=== PATIENT | male | born 1975 | race Caucasian/White ===

== ENCOUNTER 2016-07-20 23:48 | Inpatient (IN) | payer OTHER ==
[~2016-07-20] VITALS: Ht 175.3 cm; Wt 86.8 kg
[~2016-07-20 23:48] MED LIST: AMT50 PO; CHOL100027 PO; CLON0.5T3 PO; CLOZ100T18 PO; DIVA500T3 PO; IBUP600T44 PO; LISI-729 PO; PROP10TA7 PO; SENN8.6T11 PO; SIME80CH PO; SIMV20TA2 PO
[2016-07-21 00:42] LABS: MANUAL MICROSCOPIC REQUIRED? NO; REVIEW REQ? NO; URINE APPEARANCE CLEAR (CLEAR); URINE BILIRUBIN NEG (NEG); URINE COLOR YELLOW; URINE EPITHELIAL CELL AUTO 0-5 /lpf (0-5); URINE NITRITE NEG (NEG); URINE SPECIFIC GRAVITY 1.005 (1.000-1.030); UROBILINOGEN NEG (NEG); ZZUR CULT IF INDIC CLEAN CATCH NO
[2016-07-21 00:49] LABS: BASO % 0.2 %; BASO ABS # 0.02 K/uL (0-0.2); COMPLETE YES; HEMATOCRIT 41.3 % (42-52); IG% 0.5 %; LYMPH % 13.9 %; LYMPH ABS # 1.77 K/uL (1.2-3.4); MEAN CELL VOLUME 87.7 fL (80-100); MEAN CORPUSCULAR HEMOGLOBIN 31.8 pg (25-34); MEAN CORPUSCULAR HGB CONC 36.3 g/dl (32-36); MEAN PLATELET VOLUME 9.4 fL (7.4-10.4); MONO % 9.4 %; PLATELET COUNT 258 K/uL (130-400); RED BLOOD COUNT 4.71 M/uL (4.7-6.1); WHITE BLOOD COUNT 12.75 K/uL (4.8-10.8)
[2016-07-21 00:52] LABS: BENZODIAZEPINE, URINE NEG (NEG); COCAINE,URINE NEG (NEG); PHENCYCLIDINE, URINE NEG (NEG)
[2016-07-21 01:13] LABS: BUN/CREATININE RATIO 12.3 (10-20); CALCIUM 9.2 mg/dl (8.5-10.1); CREATININE 1.1 mg/dl (0.60-1.40); POTASSIUM 3.9 mmol/L (3.5-5.1)
[2016-07-21] MEDS ORDERED: LEVO1CAP6 PO (01:22)
[2016-07-21 01:24] LABS: ACETAMINOPHEN < 2 ug/ml (10-30); ALB/GLOB RATIO 1.2 (0.9-2); THYROID STIMULATING HORMONE 1.1 uIu/ml (0.300-4.500)
[2016-07-21] MEDS ORDERED: SENN8.6T11 PO (01:25)
[2016-07-21] MEDS ORDERED: NURSING VERBAL MED ORDER ONE (03:00)
[2016-07-21] MEDS ORDERED: hydrOXYzine HCL 25 MG TAB PO PRN ×2 (03:15)
[2016-07-21] MEDS ORDERED: ACETAMINOPHEN 325 MG TAB PO PRN (03:15)
[2016-07-21] MEDS ORDERED: SODIUM CHLORIDE 0.65% NA SOLN 45 ML (OCEAN) PRN (03:15)
[2016-07-21] MEDS ORDERED: BISMUTH SUBSALICYLATE PER ML OMNICELL CHARGE PO PRN (03:15)
[2016-07-21] MEDS ORDERED: ALUMINUM/MAGNESIUM SUSP 30 ML UDC PO PRN (03:15)
[2016-07-21] MEDS ORDERED: MAGNESIUM HYDROXIDE SUSP 30 ML UDC PO PRN (03:15)
[2016-07-21 03:20] VITALS: O2SAT 93
[2016-07-21 03:25] VITALS: BP 132/93; PULSE 84; TEMP 37; Ht 175.3 cm; Wt 86.8 kg
--- NOTE | 2016-07-21 06:17 | EMERGENCY ROOM VISIT NOTE ---
History Report prepared by Rubina: Martell Trujillo Under the Supervision of: Dr. Eliazar Solis M.D. First contact with patient: 23:50 Stated Complaint: ILLNESS History of Present Illness The patient is a 41 year old male who presents to the Emergency Room with complaints of acute paranoia that started at approximately 2000 tonight. The patient has a history of mental health issues. He was on Facebook and was going to preparing to post an article when he started to feel paranoid. He also admits to suicidal and homicidal ideations without a plan. The patient denies any recent attempts to harm himself or others. He also notes that he started hearing auditory hallucinations tonight, which includes voices of friends from his group therapy sessions. He denies that the voices were telling him to do anything. The patient notes shallow breathing tonight. The patient denies depression. He has not been hurt by anybody recently or experienced anything traumatic. He has been doing well until tonight. The patient denies drug or alcohol use. The patient was admitted to [facility] in April for similar complaints. He is willing to be evaluated for a mental health admission. Source of History: patient Onset: 1999 tonight Position: other (psyche) Quality: other (paranoid) Timing: other (acute) Modifying Factors (Worsening): other (Facebook) Note: Positive shallow breathing. Positive suicidal ideations, homicidal ideations, auditory hallucinations. Review of Systems See HPI for pertinent positives & negatives. A total of 10 systems reviewed and were otherwise negative. Past Medical & Surgical Medical Problems: (1) Anxiety (2) Bipolar disorder (3) Overdose (4) Schizoaffective disorder Family History Depression Social History Smoking Status: Former Smoker Alcohol Use: none Drug Use: none Marital Status: single Housing Status: lives with roommate Occupation Status: unemployed Current/Historical Medications Scheduled Amitriptyline Hcl (Elavil), 100 MG PO HS Cholecalciferol (Vitamin D 1000 Unit), 1,000 INTER.UNIT PO QAM Clonazepam (Klonopin), 0.25 MG PO DAILY@1200 & 8PM Clozapine (Clozapine), 100 MG PO QAM Clozapine (Clozapine), 200 MG PO HS Divalproex Sodium (Depakote Er), 1,500 MG PO HS Levocarnitine L-Tartrate (L-Carnitine), 500 MG PO TID Lisinopril (Zestril), 5 MG PO QAM Propranolol (Inderal), 10 MG PO DAIY@NOON Simvastatin (Zocor), 20 MG PO HS Scheduled PRN Ibuprofen (Motrin), 600 MG PO Q6H PRN for Pain Sennosides-Docusate Sodium (Doc-Q-Lax), 100 MG PO Q12 PRN for Constipation Simethicone (Gas-X), 80 MG PO PC PRN for GI Upset Allergies Coded Allergies: Chlorpromazine (Verified Allergy, Unknown, unknown, 08/17/15) Guanfacine (Unverified Allergy, Unknown, UNKNOWN, 08/17/15) Risperidone (Verified Allergy, Unknown, HAS HAD ZYPREXA WITHOUT PROBLEM, ) Ziprasidone (Verified Adverse Reaction, Severe, INSIDE FEELS LIKE BROKEN GLASS, 08/17/15) Antihistamines, Loratadine-type (Unverified Adverse Reaction, Unknown, HIGH ENERGY, 07/21/16) Physical Exam Vital Signs Date Time Temp Pulse Resp B/P Pulse Ox O2 Delivery O2 Flow Rate FiO2 07/21/16 01:34 113 20 143/87 98 Room Air 07/20/16 23:54 37.0 111 20 169/98 97 Room Air Physical Exam GENERAL: Patient is anxious appearing with a mild tremor. HEENT: No acute trauma, normocephalic atraumatic, mucous membranes moist, no nasal congestion, no scleral icterus. NECK: No stridor, no adenopathy, no meningismus, trachea is midline. LUNGS: No dyspnea. Clear to auscultation and equal bilaterally. No wheeze, no rhonchi. HEART: Regular rate and rhythm. No murmurs, rubs, gallops appreciated. ABDOMEN: Soft, nontender, bowel sounds positive, no masses appreciated, no peritonitis. BACK: No midline tenderness, no CVA tenderness EXTREMITIES: Normal motion all extremities, no cyanosis, no edema. NEUROLOGIC: Alert and oriented, no acute motor or sensory deficits, no focal weakness, cranial nerves grossly intact. SKIN: No rash, no jaundice, no diaphoresis. PSYCH: Admits to auditory hallucinations, denies depression, admits to acute priscila, admits suicidal and homicidal thoughts without a plan. Medical Decision & Procedures Laboratory Results 07/21/16 00:20 Red Blood Count 4.71, Mean Corpuscular Volume 87.7, Mean Corpuscular Hemoglobin 31.8, Mean Corpuscular Hemoglobin Concent 36.3, Mean Platelet Volume 9.4, Neutrophils (%) (Auto) 76.0, Lymphocytes (%) (Auto) 13.9, Monocytes (%) (Auto) 9.4, Eosinophils (%) (Auto) 0.0, Basophils (%) (Auto) 0.2, Neutrophils # (Auto) 9.70, Lymphocytes # (Auto) 1.77, Monocytes # (Auto) 1.20, Eosinophils # (Auto) 0.00, Basophils # (Auto) 0.02 07/21/16 00:20 Test 07/21/16 00:10 07/21/16 00:20 Urine Color YELLOW Urine Appearance CLEAR (CLEAR) Urine pH 6.0 (4.5-7.5) Urine Specific [place] 1.005 (1.000-1.030) Urine Protein NEG (NEG) Urine Glucose (UA) NEG (NEG) Urine Ketones TRACE (NEG) Urine Occult Blood 2+ (NEG) Urine Nitrite NEG (NEG) Urine Bilirubin NEG (NEG) Urine Urobilinogen NEG (NEG) Urine Leukocyte Esterase NEG (NEG) Urine WBC (Auto) 1-5 /hpf (0-5) Urine RBC (Auto) 5-10 /hpf (0-4) Urine Hyaline Casts (Auto) 1-5 /lpf (0-5) Urine Epithelial Cells (Auto) 0-5 /lpf (0-5) Urine Bacteria (Auto) NEG (NEG) Urine Opiates Screen NEG (NEG) Urine Methadone, Qualitative NEG (NEG) Urine Barbiturates NEG (NEG) Urine Phencyclidine (PCP) Level NEG (NEG) Ur Amphetamine/Methamphetamine NEG (NEG) MDMA (Ecstasy) Screen NEG (NEG) Urine Benzodiazepines Screen NEG (NEG) Urine Cocaine Metabolite NEG (NEG) Urine Marijuana (THC) NEG (NEG) White Blood Count 12.75 K/uL (4.8-10.8) Red Blood Count 4.71 M/uL (4.7-6.1) Hemoglobin 15.0 g/dL (14.0-18.0) Hematocrit 41.3 % (42-52) Mean Corpuscular Volume 87.7 fL (80-100) Mean Corpuscular Hemoglobin 31.8 pg (25-34) Mean Corpuscular Hemoglobin Concent 36.3 g/dl (32-36) Platelet Count 258 K/uL (130-400) Mean Platelet Volume 9.4 fL (7.4-10.4) Neutrophils (%) (Auto) 76.0 % Lymphocytes (%) (Auto) 13.9 % Monocytes (%) (Auto) 9.4 % Eosinophils (%) (Auto) 0.0 % Basophils (%) (Auto) 0.2 % Neutrophils # (Auto) 9.70 K/uL (1.4-6.5) Lymphocytes # (Auto) 1.77 K/uL (1.2-3.4) Monocytes # (Auto) 1.20 K/uL (0.11-0.59) Eosinophils # (Auto) 0.00 K/uL (0-0.5) Basophils # (Auto) 0.02 K/uL (0-0.2) RDW Standard Deviation 38.9 fL (36.4-46.3) RDW Coefficient of Variation 12.1 % (11.5-14.5) Immature Granulocyte % (Auto) 0.5 % Immature Granulocyte # (Auto) 0.06 K/uL (0.00-0.02) Anion Gap 12.0 mmol/L (3-11) Est Creatinine Clear Calc Drug Dose 98.9 ml/min Estimated GFR () 96.8 Estimated GFR (Non- 83.5 BUN/Creatinine Ratio 12.3 (10-20) Calcium Level 9.2 mg/dl (8.5-10.1) Total Bilirubin 0.2 mg/dl (0.2-1) Aspartate Amino Transf (AST/SGOT) 20 U/L (15-37) Alanine Aminotransferase (ALT/SGPT) 38 U/L (12-78) Alkaline Phosphatase 63 U/L (45-117) Total Protein 7.8 gm/dl (6.4-8.2) Albumin 4.2 gm/dl (3.4-5.0) Globulin 3.6 gm/dl (2.5-4.0) Albumin/Globulin Ratio 1.2 (0.9-2) Thyroid Stimulating Hormone (TSH) 1.100 uIu/ml (0.300-4.500) Chemistry Specimen Hemolysis Salicylates Level < 1.7 mg/dl (2.8-20) Acetaminophen Level < 2 ug/ml (10-30) Valproic Acid (Depakene) Level 112 mcg/ml (50-100) Ethyl Alcohol mg/dL < 3.0 mg/dl (0-3) Laboratory results as reviewed by me. ED Course 2356: The patient was evaluated in room B4b. A complete history and physical exam was performed. 0120: The patient is still feeling suicidal and having hallucinations. He wants to be admitted. 0130: [facility] is coming to evaluate the patient. 0320: The patient was accepted to [address] [place] [address]. Medical Decision Differential: Mood Disorder, Overdose, Infectious, Electrolyte Abnormality, Cardiac, Hepatic, Endocrine, Toxicologic, Neurologic, amongst other pathologies entertained. 41 yr old male well known to department for his mental health issues. States he is here because he is having acute paranoid suicidal thoughts and hearing voices. Does have mildly bumped Depakote level along with mild WBC elevation, likely more related to some dehydration, though by exam not significantly dehydrated. He has no abdominal TTP, breathing comfortably, no fever, and no other complaints. He examines much like previous visits and I do not feel that he is toxic from his depakote, though did discuss possibility that hallucinations could be caused by increased depakote. Regardless, I do not feel that this is cause to keep him from being medically cleared to go to psych facility. Evaluated by [facility] and excepted to their floor. Impression Primary Impression: Paranoia Additional Impressions: Suicidal ideation Priscila Anxiety Scribe Attestation The scribe's documentation has been prepared under my direction and personally reviewed by me in its entirety. I confirm that the note above accurately reflects all work, treatment, procedures, and medical decision making performed by me. Departure Information Dispostion Mental Health Acute Care Referrals Nuvia Liao D.O. (PCP) Problem Qualifiers
[2016-07-21 06:29] VITALS: BP_SYST 122; BP_SYST 91; BP_DIAS 63; BP_DIAS 82; PULSE 94; TEMP 36.8
[2016-07-21] MEDS ORDERED: SIMETHICONE 80 MG CHEW PO PRN (06:45)
[2016-07-21] MEDS ORDERED: DOCUSATE SODIUM/SENNA 50/8.6MG TAB PO PRN (07:00)
[2016-07-21] MEDS: CHOLECALCIFEROL 1000 INTER.UNIT TAB PO SCH (08:30)
[2016-07-21] MEDS: LISINOPRIL 5 MG TAB PO SCH (08:30)
[2016-07-21] MEDS: CLOZAPINE 100 MG TAB PO SCH ×2 (08:30→20:43)
[2016-07-21] MEDS ORDERED: CLONAZEPAM 0.5 MG TAB PO SCH ×2 (09:00→12:00)
[2016-07-21] MEDS: PROPRANOLOL HCL 10 MG TAB PO SCH (13:03)
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
--- NOTE | 2016-07-21 15:27 | Psychiatric History & Physical ---
History Identifying Data Faustino Becker is a 41-year-old male who currently lives in at [facility]. Faustino Becker was admitted on a 201 voluntary commitment. Patient is admitted from home. The patient was brought to the ED after calling CAROLINE. Chief Complaint "I had this energy and saw everything, I was restless and went for a walk". History of Present Illness Faustino Becker is a 41-year-old single white male with a PMH significant for schizoaffective disorder, biploar type who presented to the ER yesterday with acute paranoia, suicidal ideations, homicidal ideations, and possible auditory hallucinations. He is well known to the [facility] from several previous admissions, the first of which was at age [age] years old. He has required several inpatient psychiatric hospitalizations here and at [facility], [facility], and two years at [facility]. Most recently he was hospitalized for 10 days at the [facility] for "chronic fatigue." The only change to his medications following this hospitalization was the addition of L- carnitine. Yesterday, Faustino states that he started feeling thinking of various means by which he could commit suicide. He went for an hour long "mindfulness" walk. He also listened to music and took a shower, none of which improved his thought content. For example, he was thinking of how he could ask the staff at his living facility for his knife and use it to cut himself in various places on his body. Later, he took a Vistaril prn and then just felt "antsy", he was considering posting an article he had written on [employer]. It is unclear if this was his article about a "man who saved me" in [place] who is the creator of [employer]. He states that his biggest complaint is that lately he has been "hyper -focused" on lights and high end computer hardware, and cars. He becomes so focused and obsessive that these are all that he can think about, and it is " not fun." He does describe ideas of reference whereby he thinks a car tried to signal him and then almost swiped him. He describes his mood as 5/10 and "in between," and describes that lately he has been in a "bad mood." He describes episodes of manic behavior including grandiosity, extreme irritability, increased pacing, increased pressure on self to perform and not disappoint, flight of ideas, and rapid speech. During these episodes he reports "delusional hallucinations" but cannot express further on what this means to him. He reports good appetite but is concerned about 7 pound weight loss in the last week. Past Psychiatric History [facility] Current outpatient mental health treatment: * Psychiatrist- Dr. Reyes and his PA, Kendal- [facility] * [facility], [facility] * medical case manager - Titi Castro Prior outpatient mental health treatment: * Dr. María Mason Prior psychiatric hospitalizations: * [facility], * [place], * [facility] * [place], * [facility] Prior medication trials: * Abilify- strange dreams * Thorazine- rage * Risperdal- removed clothing * Geodon- too short acting * Trilafon- no perceived benefit * Vistaril- no perceived benefit Prior suicide attempts: 2 * 2009- cut his arm and took 30 Klonopin * Described another attempt while in [facility] Access to weapons: none at assisted living. Past Medical/Surgical History Current primary care practitioner: Emilee Reinoso, [place] hypercholesterolemia HTN -- Denies personal history of DM, obesity, heart disease, history of head injury: none history of seizure: none Allergies Allergies: Coded Allergies: Chlorpromazine (Verified Allergy, Unknown, unknown, 08/17/15) Guanfacine (Unverified Allergy, Unknown, UNKNOWN, 08/17/15) Risperidone (Verified Allergy, Unknown, HAS HAD ZYPREXA WITHOUT PROBLEM, ) Ziprasidone (Verified Adverse Reaction, Severe, INSIDE FEELS LIKE BROKEN GLASS, 08/17/15) Antihistamines, Loratadine-type (Unverified Adverse Reaction, Unknown, HIGH ENERGY, 07/21/16) Home Medications Scheduled Amitriptyline Hcl (Elavil), 100 MG PO HS Cholecalciferol (Vitamin D 1000 Unit), 1,000 INTER.UNIT PO QAM Clonazepam (Klonopin), 0.25 MG PO DAILY@1200 & 8PM Clozapine (Clozapine), 100 MG PO QAM Clozapine (Clozapine), 200 MG PO HS Divalproex Sodium (Depakote Er), 1,500 MG PO HS Levocarnitine L-Tartrate (L-Carnitine), 500 MG PO TID Lisinopril (Zestril), 5 MG PO QAM Propranolol (Inderal), 10 MG PO DAIY@NOON Simvastatin (Zocor), 20 MG PO HS Scheduled PRN Ibuprofen (Motrin), 600 MG PO Q6H PRN for Pain Sennosides-Docusate Sodium (Doc-Q-Lax), 100 MG PO Q12 PRN for Constipation Simethicone (Gas-X), 80 MG PO PC PRN for GI Upset Family History Depression Mental Health: * mother- bipolar, hypothyroidism Substance Abuse: * father- alcohol abuse, hyperthyroidism Suicide: * Mother- several attempts Medical history: * Paternal relatives- ovarian, brain, and throat cancer * Maternal relatives - HTN, heart disease denies family history of DM, obesity, Alcohol Use Alcohol Use In Past 12 Months: No Substance History Substance Use Past 12 Months: Hx of Inhalent Use: No Hx of Organic Substance Use: No Hx of Illegal/Street Drug Use: No Hx of Over the Counter Med Use: No Hx of Prescription Med Use: No Personal History Born in: [place], but raised in [place], [place] Parental Status: Development: Developmental milestones were on time, per patient Education: graduated from high school, started college Work History: unemployed, 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 Relationship History: never Children: denies Spiritual Affiliation: denies Legal History: none Abuse History: none Additional Comments: Siblings: Only child Education: Working on a Bachelors degree in [employer] Review of Systems Psych: denies symptoms other than stated above Constitutional: denied Cardiovascular: denied GI: denied Neurologic: denied Remainder of 10 body systems also reviewed and denied other than noted above. Examination Physical Examination A physical exam was performed in the ER by Dr. Solis prior to admission to the unit. I accept that physical as correct/medical clearance for the inpatient physical exam. Vital Signs Vital Signs Past 12 Hours Date Time Temp Pulse Resp B/P Pulse Ox O2 Delivery O2 Flow Rate FiO2 07/21/16 06:29 36.8 94 17 122/82 91/63 07/21/16 03:25 37.0 84 20 132/93 07/21/16 03:20 83 20 132/93 93 Room Air Laboratory Results Last 24 Hours Test 07/21/16 00:10 07/21/16 00:20 Urine Color YELLOW Urine Appearance CLEAR Urine pH 6.0 Urine Specific [place] 1.005 Urine Protein NEG Urine Glucose (UA) NEG Urine Ketones TRACE Urine Occult Blood 2+ Urine Nitrite NEG Urine Bilirubin NEG Urine Urobilinogen NEG Urine Leukocyte Esterase NEG Urine WBC (Auto) 1-5 /hpf Urine RBC (Auto) 5-10 /hpf Urine Hyaline Casts (Auto) 1-5 /lpf Urine Epithelial Cells (Auto) 0-5 /lpf Urine Bacteria (Auto) NEG Urine Opiates Screen NEG Urine Methadone, Qualitative NEG Urine Barbiturates NEG Urine Phencyclidine (PCP) Level NEG Ur Amphetamine/Methamphetamine NEG MDMA (Ecstasy) Screen NEG Urine Benzodiazepines Screen NEG Urine Cocaine Metabolite NEG Urine Marijuana (THC) NEG White Blood Count 12.75 K/uL Red Blood Count 4.71 M/uL Hemoglobin 15.0 g/dL Hematocrit 41.3 % Mean Corpuscular Volume 87.7 fL Mean Corpuscular Hemoglobin 31.8 pg Mean Corpuscular Hemoglobin Concent 36.3 g/dl Platelet Count 258 K/uL Mean Platelet Volume 9.4 fL Neutrophils (%) (Auto) 76.0 % Lymphocytes (%) (Auto) 13.9 % Monocytes (%) (Auto) 9.4 % Eosinophils (%) (Auto) 0.0 % Basophils (%) (Auto) 0.2 % Neutrophils # (Auto) 9.70 K/uL Lymphocytes # (Auto) 1.77 K/uL Monocytes # (Auto) 1.20 K/uL Eosinophils # (Auto) 0.00 K/uL Basophils # (Auto) 0.02 K/uL RDW Standard Deviation 38.9 fL RDW Coefficient of Variation 12.1 % Immature Granulocyte % (Auto) 0.5 % Immature Granulocyte # (Auto) 0.06 K/uL Sodium Level 139 mmol/L Potassium Level 3.9 mmol/L Chloride Level 103 mmol/L Carbon Dioxide Level 24 mmol/L Anion Gap 12.0 mmol/L Blood Urea Nitrogen 14 mg/dl Creatinine 1.10 mg/dl Est Creatinine Clear Calc Drug Dose 98.9 ml/min Estimated GFR () 96.8 Estimated GFR (Non- 83.5 BUN/Creatinine Ratio 12.3 Random Glucose 109 mg/dl Calcium Level 9.2 mg/dl Total Bilirubin 0.2 mg/dl Aspartate Amino Transf (AST/SGOT) 20 U/L Alanine Aminotransferase (ALT/SGPT) 38 U/L Alkaline Phosphatase 63 U/L Total Protein 7.8 gm/dl Albumin 4.2 gm/dl Globulin 3.6 gm/dl Albumin/Globulin Ratio 1.2 Thyroid Stimulating Hormone (TSH) 1.100 uIu/ml Chemistry Specimen Hemolysis Salicylates Level < 1.7 mg/dl Acetaminophen Level < 2 ug/ml Valproic Acid (Depakene) Level 112 mcg/ml Ethyl Alcohol mg/dL < 3.0 mg/dl Mental Examination During interview pt is: alert and oriented, cooperative Appearance: appropriately dressed, appropriately groomed Eye contact is: fair Motor behavior is: no abnormal motor movements Speech: normal in rate, rhythm & volume Affect: euthymic Mood is: other (elevated) Thought process: circumstantial Thought content: preoccupation, delusions (grandiosity), ideas of reference Suicidal thought are: denied Homicidal thoughts are: denied Hallucinations: denies auditory, denies visual Cognition: attention grossly intact, language grossly intact Intelligence estimated to be: consistent with level of education Insight: limited Judgement: limited Impression / Recommendations Impression 41 yo male who appears younger than stated age with well established diagnosis of schizoaffective disorder, currently appears to be at least hypomanic with restlessness alternating with paranoia. Depakote level was not a trough. He notes benefit from Klonopin and describes possible restless legs at hs. He declines any Clozaril titration due to mild sialorrhea and sedation. Risk Factors Assessment Male: Yes : Yes /single/: Yes Access to guns: No Mental Health Diagnoses: Yes Previous attempt: Yes Previous psychiatric stay: Yes Protective Factors Assessment Stable relationships: Yes Good rapport with provider: Yes Recommendations (1) Schizoaffective disorder, manic type on admit: The patient is admitted to [facility] ([facility] on q 15 min checks (behavioral with suicide precautions) for safety. The patient will participate in group, recreational and milieu therapies and will be offered additional individual and family sessions as clinically appropriate. will titrate Klonopin for now, repeat VPA level in am with fasting lipid and glucose profile. consider clozaril titration (2) HTN (hypertension) patient states propranolol is for anxiety, not high BP continue Lisinopril and will do daily VS CPT Code Initial Hospital Care: [id number]
[2016-07-21] MEDS: CLONAZEPAM 0.5 MG TAB PO SCH (20:43)
[2016-07-21] MEDS: AMITRIPTYLINE HCL 50 MG TAB PO SCH (20:43)
[2016-07-21] MEDS: SIMVASTATIN 20 MG TAB PO SCH (20:44)
[2016-07-21] MEDS: DIVALPROEX 500 MG EXTENDED RELEASE TAB PO SCH (20:44)
[2016-07-22] MEDS: IBUPROFEN 600 MG TAB PO PRN (00:34)
[2016-07-22 06:50] VITALS: BP_SYST 101; BP_SYST 108; BP_DIAS 70; BP_DIAS 72; PULSE 82; PULSE 85; TEMP 36.4
[2016-07-22] MEDS: LISINOPRIL 5 MG TAB PO SCH (09:05)
[2016-07-22] MEDS: CHOLECALCIFEROL 1000 INTER.UNIT TAB PO SCH (09:05)
[2016-07-22] MEDS: CLOZAPINE 100 MG TAB PO SCH ×2 (09:05→20:39)
--- NOTE | 2016-07-22 09:54 | Psychiatric Progress Notes ---
Progress Note Date of Service Jul 22, 2016. Chief Complaint "My mood is pretty good but I have trouble with my thoughts". Subjective Patient was seen & assessed interval progress reviewed with Treatment Team. Patient's Klonopin was increased slightly at time of admission. No acute events reported overnight by staff. He denied continued suicidal ideation yesterday. Depakote level repeated and 77. Participating in programming. Staff note that he looks much better presently as compared to presentations in the past when he was much more psychotic. On interview, patient reports that his mood is good, but denies feeling euphoric. He acknowledges preoccupation with lights and sounds but denies that these things have special meaning for him. "It's just like I notice them and keep looking at them." He denies recurrence of suicidal thinking since admission. He is uncertain if suicidality would return if discharged. He does feel safe here. He does not want to increase his clozapine. "It makes me zombified." He reports he has been on amitriptyline for several years and perceives it is helpful for his concentration. He denies feeling unsteady on his feet. Review of Systems Constitutional: No fever Cardiovascular: No chest pain Neurologic: No balance problems Psychiatric: No insomnia Sleep Information Total Hours of Sleep: 8.25 Meal Information Percent of Breakfast Consumed: 100 Percent of Lunch Consumed: 100 Percent of Dinner Consumed: 100 Mental Status Exam During interview pt is: cooperative Appearance: appropriately dressed, disheveled Eye contact is: good Motor behavior is: no abnormal motor movements Speech: other (cadance and volume variable) Affect: euthymic Mood is: other (good) Thought process: circumstantial Thought content: preoccupation, delusions (grandiosity), ideas of reference Suicidal thought are: denied Homicidal thoughts are: denied Hallucinations: denies auditory, denies visual Cognition: language grossly intact, other Intelligence estimated to be: consistent with level of education Insight: limited Judgement: limited Impression 41 yo male who appears younger than stated age with well established diagnosis of schizoaffective disorder, currently appears to be at least hypomanic with restlessness alternating with paranoia. Depakote level was not a trough. He notes benefit from Klonopin and describes possible restless legs at hs. He declines any Clozaril titration due to mild sialorrhea and sedation. Continued Inpatient Care While suicidality has been denied since admission to hospital, a period of appropriate monitoring is felt to be medically necessary and appropriate to monitor for safety in this chronic mental health patient Plan (1) Schizoaffective disorder, manic type on admit: The patient is admitted to [facility] ([facility]) on q 15 min checks (behavioral with suicide precautions) for safety. The patient will participate in group, recreational and milieu therapies and will be offered additional individual and family sessions as clinically appropriate. will titrate Klonopin for now, repeat VPA level in am with fasting lipid and glucose profile. consider clozaril titration 07/22: Depakote level within therapeutic range at 77. Tolerating dose escalation of clonazepam and appears calm today but still demonstrating some affective volatility and appears somewhat stimulus bound. Continues to decline dose escalation of clozapine which might be helpful. Will check amitriptyline level this morning and may consider adjustment. Lipid panel notable for elevated tri's which will need monitoring on the clozaril. (2) HTN (hypertension) patient states propranolol is for anxiety, not high BP continue Lisinopril and will do daily VS Discharge / Aftercare Planning Primary Care Physician: Name: Dr Garcia Phone Number: Appointment Notes: as needed Psychiatrist: Name: Dr Reyes at [facility] Phone Number: [phone] Leaf Conditioner Helper: Name: Titi Castro at [facility] Phone Number: Date of Appointment: Jul 26, 2016 Time of Appointment: 1:00 Appointment Notes: Titi will come to unit if pt is still here Visit Code E&M Code: 34323 Risk Factors Assessment Male: Yes : Yes /single/: Yes Mental Health Diagnoses: Yes Previous attempt: Yes Previous psychiatric stay: Yes Protective Factors Assessment Stable relationships: Yes Good rapport with provider: Yes Data Vital Signs Last 24 Hrs: Date Time Temp Pulse Resp B/P Pulse Ox O2 Delivery O2 Flow Rate FiO2 07/22/16 06:50 36.4 85 16 108/72 82 101/70 Meds Administered Last 24 Hrs: Meds Administered (Past 24Hrs) Medications (Trade) Dose Ordered Sig/Tj Route Start Time Stop Time Status Last Admin Dose Admin Amitriptyline HCl (Elavil Tab) 100 mg HS PO 07/21/16 22:00 08/20/16 21:59 07/21/16 20:43 100 MG Cholecalciferol (Vitamin D Tab) 1,000 inter.unit QAM PO 07/21/16 09:00 08/20/16 08:59 07/22/16 09:05 1,000 INTER.UNIT Clozapine (Clozaril Tab) 100 mg QAM PO 07/21/16 09:00 08/20/16 08:59 07/22/16 09:05 100 MG Clozapine (Clozaril Tab) 200 mg HS PO 07/21/16 22:00 08/20/16 21:59 07/21/16 20:43 200 MG Divalproex Sodium (Depakote Extended Rel Tab) 1,500 mg HS PO 07/21/16 22:00 08/20/16 21:59 07/21/16 20:44 1,500 MG Ibuprofen (Motrin Tab) 600 mg Q6H PRN PO 07/21/16 06:45 08/20/16 06:44 07/22/16 00:34 600 MG Lisinopril (Zestril Tab) 5 mg QAM PO 07/21/16 09:00 08/20/16 08:59 07/22/16 09:05 5 MG Propranolol HCl (Inderal Tab) 10 mg QDL PO 07/21/16 12:30 08/20/16 12:29 07/21/16 13:03 10 MG Simvastatin (Zocor Tab) 20 mg HS PO 07/21/16 22:00 08/20/16 21:59 07/21/16 20:44 20 MG Clonazepam (Klonopin Tab) 0.25 mg DAILY@1200,2000 PO 07/21/16 12:00 07/21/16 15:11 DC 07/21/16 13:04 0.25 MG Clonazepam (Klonopin Tab) 0.5 mg DAILY@1200,2000 PO 07/21/16 20:00 08/20/16 19:59 07/21/16 20:43 0.5 MG Lab Results Last 24 Hrs: Last 24 Hours Test 07/22/16 07:00 Fasting Glucose 95 mg/dl Triglycerides Level 176 mg/dl Cholesterol Level 189 mg/dl HDL Cholesterol 47 mg/dl LDL Cholesterol, Calculated 107 mg/dl VLDL Cholesterol, Calculated 35 mg/dl Cholesterol/HDL Ratio 4.0 Valproic Acid (Depakene) Level 77 mcg/ml
[2016-07-22 11:53] VITALS: BP 119/78; PULSE 92
[2016-07-22] MEDS: PROPRANOLOL HCL 10 MG TAB PO SCH (11:53)
[2016-07-22] MEDS: CLONAZEPAM 0.5 MG TAB PO SCH ×2 (11:53→20:39)
[2016-07-22] MEDS: DIVALPROEX 500 MG EXTENDED RELEASE TAB PO SCH (20:39)
[2016-07-22] MEDS: AMITRIPTYLINE HCL 50 MG TAB PO SCH (20:40)
[2016-07-22] MEDS: SIMVASTATIN 20 MG TAB PO SCH (20:40)
[2016-07-23 06:56] VITALS: BP 107/75; PULSE 81; PULSE 82; TEMP 36.5
[2016-07-23] MEDS: CLOZAPINE 100 MG TAB PO SCH ×2 (08:56→21:00)
[2016-07-23] MEDS: LISINOPRIL 5 MG TAB PO SCH (08:56)
[2016-07-23] MEDS: CHOLECALCIFEROL 1000 INTER.UNIT TAB PO SCH (08:56)
[2016-07-23] MEDS: CLONAZEPAM 0.5 MG TAB PO SCH ×2 (12:22→21:00)
[2016-07-23] MEDS: PROPRANOLOL HCL 10 MG TAB PO SCH (12:23)
--- NOTE | 2016-07-23 13:20 | Psychiatric Progress Notes ---
Progress Note Date of Service Jul 23, 2016. Chief Complaint "I feel pretty good". Subjective Patient was seen & assessed interval progress reviewed with Treatment Team. Per staff, patient reporting feeling better last evening. Plan is to return to [facility] when discharged. senior quality manager will visit Sunday if he remains on the unit. Participating in groups. No behavioral disturbances reported. Patient awoken from sleep this morning. Reports feeling a little better and voices no concerns. He is not endorsing active suicidal ideation. He has no complaints regarding increased dose of clonazepam. Amitriptyline level drawn but results not available for review. Review of Systems Denies excessive drowsiness Psychiatric: No insomnia Sleep Information Total Hours of Sleep: 6.50 Meal Information Percent of Breakfast Consumed: 100 Percent of Lunch Consumed: 50 Percent of Dinner Consumed: 75 Mental Status Exam During interview pt is: cooperative Appearance: disheveled Eye contact is: good Motor behavior is: no abnormal motor movements Speech: other (soft, minimal this morning) Affect: euthymic Mood is: other (better) Thought process: circumstantial Thought content: preoccupation Suicidal thought are: denied Homicidal thoughts are: denied Hallucinations: denies auditory, denies visual Cognition: language grossly intact, other Intelligence estimated to be: consistent with level of education Insight: limited Judgement: limited Impression 41 yo male who appears younger than stated age with well established diagnosis of schizoaffective disorder, currently appears to be at least hypomanic with restlessness alternating with paranoia. Depakote level was not a trough. He notes benefit from Klonopin and describes possible restless legs at hs. He declines any Clozaril titration due to mild sialorrhea and sedation. Continued Inpatient Care While suicidality has been denied since admission to hospital, a period of appropriate monitoring is felt to be medically necessary and appropriate to monitor for safety in this chronic mental health patient Plan (1) Schizoaffective disorder, manic type on admit: The patient is admitted to [facility] on q 15 min checks (behavioral with suicide precautions) for safety. The patient will participate in group, recreational and milieu therapies and will be offered additional individual and family sessions as clinically appropriate. will titrate Klonopin for now, repeat VPA level in am with fasting lipid and glucose profile. consider clozaril titration 07/22: Depakote level within therapeutic range at 77. Tolerating dose escalation of clonazepam and appears calm today but still demonstrating some affective volatility and appears somewhat stimulus bound. Continues to decline dose escalation of clozapine which might be helpful. Will check amitriptyline level this morning and may consider adjustment. Lipid panel notable for elevated tri's which will need monitoring on the clozaril. 07/23 - Appearing more calm and composed and less 24 hours. Staff continue to report that he appears pretty good compared to presentations in the past. Amitriptyline level drawn but not yet available for review. - Fasting lipids notable for mildly elevated triglycerides and fasting glucose within normal limits 07/22/2016 (2) HTN (hypertension) patient states propranolol is for anxiety, not high BP continue Lisinopril and will do daily VS Discharge / Aftercare Planning Primary Care Physician: Name: Dr Garcia Phone Number: Appointment Notes: as needed Psychiatrist: Name: Dr Reyes at [facility] Phone Number: [phone] [email or web address] Android Developer: Name: Titi Castro at [facility] Phone Number: Date of Appointment: Jul 26, 2016 Time of Appointment: 1:00 Appointment Notes: Titi will come to unit if pt is still here Visit Code E&M Code: 09851 Risk Factors Assessment Male: Yes : Yes /single/: Yes Mental Health Diagnoses: Yes Previous attempt: Yes Previous psychiatric stay: Yes Protective Factors Assessment Stable relationships: Yes Good rapport with provider: Yes Data Vital Signs Last 24 Hrs: Date Time Temp Pulse Resp B/P Pulse Ox O2 Delivery O2 Flow Rate FiO2 07/23/16 06:56 36.5 81 16 107/75 82 Meds Administered Last 24 Hrs: Meds Administered (Past 24Hrs) Medications (Trade) Dose Ordered Sig/Tj Route Start Time Stop Time Status Last Admin Dose Admin Amitriptyline HCl (Elavil Tab) 100 mg HS PO 07/21/16 22:00 08/20/16 21:59 07/22/16 20:40 100 MG Clozapine (Clozaril Tab) 200 mg HS PO 07/21/16 22:00 08/20/16 21:59 07/22/16 20:39 200 MG Divalproex Sodium (Depakote Extended Rel Tab) 1,500 mg HS PO 07/21/16 22:00 08/20/16 21:59 07/22/16 20:39 1,500 MG Simvastatin (Zocor Tab) 20 mg HS PO 07/21/16 22:00 08/20/16 21:59 07/22/16 20:40 20 MG Clonazepam (Klonopin Tab) 0.5 mg DAILY@1200,2000 PO 07/21/16 20:00 08/20/16 19:59 07/23/16 12:22 0.5 MG
[2016-07-23] MEDS: DIVALPROEX 500 MG EXTENDED RELEASE TAB PO SCH (21:00)
[2016-07-23] MEDS: AMITRIPTYLINE HCL 50 MG TAB PO SCH (21:00)
[2016-07-23] MEDS: SIMVASTATIN 20 MG TAB PO SCH (21:01)
[2016-07-24 06:49] VITALS: BP_SYST 108; BP_SYST 135; BP_DIAS 73; BP_DIAS 89; PULSE 76; PULSE 79; TEMP 36.7
[2016-07-24] MEDS: LISINOPRIL 5 MG TAB PO SCH (08:24)
[2016-07-24] MEDS: CHOLECALCIFEROL 1000 INTER.UNIT TAB PO SCH (08:24)
[2016-07-24] MEDS: CLOZAPINE 100 MG TAB PO SCH ×2 (08:24→21:52)
--- NOTE | 2016-07-24 11:22 | Psychiatric Progress Notes ---
Progress Note Date of Service Jul 24, 2016. Interval History Faustino Becker is a 41-year-old male with schizoaffective disorder who lives at [facility] and was admitted on a 201 voluntary commitment after calling [facility]. Chief Complaint "I'm not that optimistic, I'm hoping the increased Klonopin's gonna work". Subjective Patient was seen & assessed interval progress reviewed with Treatment Team. Staff report he is going to groups and participating, but reports being tired all the time, and is spending a lot of time in bed. He had returned to bed in between groups today, saying he is tried "a lot, I have chronic fatigue." He says he wants medication that will allow him to "feel stable, in control of my mood and state of mind," and doesn't think there is anything else he can do to feel more stable other than ask for med changes. He says his symptoms are much better here in the hospital, but is worried about how he will feel when he returns home. He specifically is concerned he will feel "confused, like I'm crawling out of skin." He struggles to identify what is different outside the hospital that he feels this way, and says "I don't know, I Facebook a lot, and drink a lot of [employer] drinks." He denies SI and feels safe here, but does not feel safe outside the hospital, and says he doesn't understand why his estimated LOS was 2-4 days, as on Sunday it was 4-6 days. He says he might be ready in 4 days, at the minimum. He reports good sleep overnight, and continues to be tired during the day, but doesn't want any of his medications decreased. His goal of treatment is to have no anxiety. Sleep Information Total Hours of Sleep: 6.50 Meal Information Percent of Breakfast Consumed: 100 Percent of Lunch Consumed: 50 Percent of Dinner Consumed: 90 Mental Status Exam During interview pt is: cooperative Appearance: disheveled Eye contact is: good Motor behavior is: steady gait & station, no abnormal motor movements Speech: normal in rate, rhythm & volume Affect: euthymic Mood is: other ("I'm not that optimistic") Thought process: goal directed, concrete Thought content: reality based without delusions Suicidal thought are: denied Homicidal thoughts are: denied Hallucinations: denies auditory, denies visual Cognition: language grossly intact Intelligence estimated to be: consistent with level of education Insight: limited Judgement: limited Impression 41 yo male who appears younger than stated age with well established diagnosis of schizoaffective disorder, admitted with hypomanic symptoms, restlessness alternating with paranoia. Depakote level was not a trough. He notes benefit from Klonopin and describes possible restless legs at hs. He declines any Clozaril titration due to mild sialorrhea and sedation. Continued Inpatient Care While suicidality has been denied since admission to hospital, a period of appropriate monitoring is felt to be medically necessary and appropriate to monitor for safety in this chronic mental health patient Plan (1) Schizoaffective disorder, manic type on admit: The patient is admitted to [facility] ([facility] mental health unit) on q 15 min checks (behavioral with suicide precautions) for safety. The patient will participate in group, recreational and milieu therapies and will be offered additional individual and family sessions as clinically appropriate. will titrate Klonopin for now, repeat VPA level in am with fasting lipid and glucose profile. consider clozaril titration 07/22 - Depakote level within therapeutic range at 77. Tolerating dose escalation of clonazepam and appears calm today but still demonstrating some affective volatility and appears somewhat stimulus bound. Continues to decline dose escalation of clozapine which might be helpful. Will check amitriptyline level this morning and may consider adjustment. Lipid panel notable for elevated tri' s which will need monitoring on the clozaril. 07/23 - Appearing more calm and composed over the last 24 hours. Staff continue to report that he appears pretty good compared to presentations in the past. Amitriptyline level drawn but not yet available for review. - Fasting lipids notable for mildly elevated triglycerides and fasting glucose within normal limits 07/22/2016. 07/24 - Symptoms much improved in hospital, but anxious about returning home and doesn't feel safe to leave. [place] and has difficulty exploring triggers at home, but admits to lots of time on social media, and drinking [employer] energy drinks, both of which are likely to worsen symptoms. (2) HTN (hypertension) patient states propranolol is for anxiety, not high BP continue Lisinopril and will do daily VS Discharge / Aftercare Planning Primary Care Physician: Name: Dr Garcia Phone Number: Appointment Notes: as needed Psychiatrist: Name: Dr Reyes/Kendal Flowers PA-C at [facility] Phone Number: [phone] Date of Appointment: Aug 08, 2016 Time of Appointment: 9:15am Industrial Roof Plumber: Name: Titi Castro at [facility] Phone Number: Date of Appointment: Jul 26, 2016 Time of Appointment: 1:00 Appointment Notes: Bill will come to unit if pt is still here Visit Code E&M Code: 36151 Risk Factors Assessment Male: Yes : Yes /single/: Yes Mental Health Diagnoses: Yes Previous attempt: Yes Previous psychiatric stay: Yes Protective Factors Assessment Stable relationships: Yes Good rapport with provider: Yes Data Vital Signs Last 24 Hrs: Date Time Temp Pulse Resp B/P Pulse Ox O2 Delivery O2 Flow Rate FiO2 07/24/16 06:49 36.7 76 16 135/89 79 108/73
[2016-07-24] MEDS: PROPRANOLOL HCL 10 MG TAB PO SCH (12:33)
[2016-07-24] MEDS: CLONAZEPAM 0.5 MG TAB PO SCH ×2 (12:34→21:52)
[2016-07-24] MEDS: SIMVASTATIN 20 MG TAB PO SCH (21:52)
[2016-07-24] MEDS: AMITRIPTYLINE HCL 50 MG TAB PO SCH (21:52)
[2016-07-24] MEDS: DIVALPROEX 500 MG EXTENDED RELEASE TAB PO SCH (21:52)
[2016-07-25 06:50] VITALS: BP 117/78; PULSE 76; PULSE 77; TEMP 36.8
[2016-07-25] MEDS: CLOZAPINE 100 MG TAB PO SCH (08:29)
[2016-07-25] MEDS: CHOLECALCIFEROL 1000 INTER.UNIT TAB PO SCH (08:29)
[2016-07-25] MEDS: LISINOPRIL 5 MG TAB PO SCH (08:30)
--- NOTE | 2016-07-25 10:29 | Psychiatric Progress Notes ---
Progress Note Date of Service Jul 25, 2016. Interval History Faustino Becker is a 41-year-old male with schizoaffective disorder who lives at [facility] and was admitted on a 201 voluntary commitment [facility] Chief Complaint "I think I'm better.". Subjective Patient was seen & assessed interval progress reviewed with Treatment Team. Faustino is tired today, and was in bed when retrieved for the interview. he was cooperative and says that he is feeling "better", meaning more relaxed, with good mood. He is "not looking forward to going home" because he mental health "has not been good for the last month or more", but denies that there has been any acute stress or trigger. He has been going to groups, and working toward learning additional coping strategies to prevent decompensation again. He reported to nursing that he was relating to a peer who was, in his mind, exhibiting manic behaviors, and saying that he could relate because that's how he felt before coming into the hospital. He denies SI/HI, denies aud/vis hallucintations or paranoia Review of Systems Constitutional: + fatigue ENT: No dental problems, No hearing loss, No nasal symptoms, No problem reported, No sore throat, No tinnitus, No trouble swallowing, No unusual epistaxis Respiratory: No cough, No dyspnea at rest, No dyspnea on exertion, No hemoptysis, No problem reported, No shortness of breath, No sputum, No wheezing Cardiovascular: No PND, No chest pain, No claudication, No edema, No orthopnea , No palpitations, No problem reported Abdomen: No GI bleeding, No constipation, No diarrhea, No nausea, No pain, No problem reported, No vomiting Musculoskeletal: No calf pain, No joint pain, No muscle pain, No problem reported, No swelling Neurologic: No balance problems, No memory loss, No numbness/tingling, No paralysis, No problem reported, No vertigo, No weakness Psychiatric: + anxiety, + depression symptoms Sleep Information Total Hours of Sleep: 6.50 Meal Information Percent of Breakfast Consumed: 100 Percent of Lunch Consumed: 90 Percent of Dinner Consumed: 100 Mental Status Exam During interview pt is: cooperative Appearance: disheveled Eye contact is: good Motor behavior is: steady gait & station, no abnormal motor movements Speech: normal in rate, rhythm & volume Affect: blunted Mood is: other ("Better") Thought process: goal directed, concrete Thought content: reality based without delusions Suicidal thought are: denied Homicidal thoughts are: denied Hallucinations: denies auditory, denies visual Cognition: language grossly intact Intelligence estimated to be: consistent with level of education Insight: limited Judgement: limited Impression The patient says that he is benefitting from being in the hospital as he struggles to understand why he decompensated. He is sedated during the day and so have suggested moving all of his Clozaril to HS which he agrees to try. His mood is better, and denying any manic symptoms today, but has high anticipatory anxiety about discharge. Continued Inpatient Care While suicidality has been denied since admission to hospital, a period of appropriate monitoring is felt to be medically necessary and appropriate to monitor for safety in this chronic mental health patient Plan (1) Schizoaffective disorder, manic type on admit: The patient is admitted to [facility] ([facility] mental health unit) on q 15 min checks (behavioral with suicide precautions) for safety. The patient will participate in group, recreational and milieu therapies and will be offered additional individual and family sessions as clinically appropriate. will titrate Klonopin for now, repeat VPA level in am with fasting lipid and glucose profile. consider clozaril titration 07/22 - Depakote level within therapeutic range at 77. Tolerating dose escalation of clonazepam and appears calm today but still demonstrating some affective volatility and appears somewhat stimulus bound. Continues to decline dose escalation of clozapine which might be helpful. Will check amitriptyline level this morning and may consider adjustment. Lipid panel notable for elevated tri' s which will need monitoring on the clozaril. 07/23 - Appearing more calm and composed over the last 24 hours. Staff continue to report that he appears pretty good compared to presentations in the past. Amitriptyline level drawn but not yet available for review. - Fasting lipids notable for mildly elevated triglycerides and fasting glucose within normal limits 07/22/2016. 07/24 - Symptoms much improved in hospital, but anxious about returning home and doesn't feel safe to leave. [place] and has difficulty exploring triggers at home, but admits to lots of time on social media, and drinking [employer] energy drinks, both of which are likely to worsen symptoms. 07/25 - Change dosing of Clozaril to 300 mg. all at HS starting tomorrow to reduce daytime fatigue (2) HTN (hypertension) patient states propranolol is for anxiety, not high BP continue Lisinopril and will do daily VS Discharge / Aftercare Planning Primary Care Physician: Name: Dr Garcia Phone Number: Appointment Notes: as needed Psychiatrist: Name: Dr Reyes/Kendal Flowers PA-C at [facility] Phone Number: [phone] Date of Appointment: Aug 08, 2016 Time of Appointment: 9:15am Gypsum Roofer: Name: Titi Castro at [facility] Phone Number: [phone] Date of Appointment: Jul 26, 2016 Time of Appointment: 1:00 Appointment Notes: Titi will come to unit if pt is still here Visit Code E&M Code: 00334 Risk Factors Assessment Male: Yes : Yes /single/: Yes Mental Health Diagnoses: Yes Previous attempt: Yes Previous psychiatric stay: Yes Protective Factors Assessment : No Responsible for young children: No Stable relationships: Yes Supportive family: No Good rapport with provider: Yes Data Vital Signs Last 24 Hrs: Date Time Temp Pulse Resp B/P Pulse Ox O2 Delivery O2 Flow Rate FiO2 07/25/16 06:50 36.8 76 16 117/78 77 Meds Administered Last 24 Hrs: Current Inpatient Medications Medications (Trade) Dose Ordered Sig/Tj Route Start Time Stop Time Status Last Admin Dose Admin Acetaminophen (Tylenol Tab) 650 mg Q4H PRN PO 07/21/16 03:15 08/20/16 03:14 Al Hydroxide/Mg Hydroxide (Maalox Susp) 30 ml Q4H PRN PO 07/21/16 03:15 08/20/16 03:14 Bismuth Subsalicylate (Kaopectate Liqd) 15 ml DAILY PRN PO 07/21/16 03:15 08/20/16 03:14 Magnesium Hydroxide (Milk Of Magnesia Susp) 30 ml DAILY PRN PO 07/21/16 03:15 08/20/16 03:14 Sodium Chloride ([place] Nasal [place]) PRN PRN NA 07/21/16 03:15 08/20/16 03:14 Hydroxyzine HCl (Vistaril Tab) 50 mg HSZ PRN PO 07/21/16 03:15 08/20/16 03:14 Hydroxyzine HCl (Vistaril Tab) 25 mg Q4H PRN PO 07/21/16 03:15 08/20/16 03:14 Amitriptyline HCl (Elavil Tab) 100 mg HS PO 07/21/16 22:00 08/20/16 21:59 07/24/16 21:52 100 MG Cholecalciferol (Vitamin D Tab) 1,000 inter.unit QAM PO 07/21/16 09:00 08/20/16 08:59 07/25/16 08:29 1,000 INTER.UNIT Clozapine (Clozaril Tab) 100 mg QAM PO 07/21/16 09:00 08/20/16 08:59 07/25/16 08:29 100 MG Clozapine (Clozaril Tab) 200 mg HS PO 07/21/16 22:00 08/20/16 21:59 07/24/16 21:52 200 MG Divalproex Sodium (Depakote Extended Rel Tab) 1,500 mg HS PO 07/21/16 22:00 08/20/16 21:59 07/24/16 21:52 1,500 MG Ibuprofen (Motrin Tab) 600 mg Q6H PRN PO 07/21/16 06:45 08/20/16 06:44 07/22/16 00:34 600 MG Lisinopril (Zestril Tab) 5 mg QAM PO 07/21/16 09:00 08/20/16 08:59 07/25/16 08:30 5 MG Propranolol HCl (Inderal Tab) 10 mg QDL PO 07/21/16 12:30 08/20/16 12:29 07/24/16 12:33 10 MG Senna/Docusate Sodium (Senokot S Tab) 1 tab BID PRN PO 07/21/16 07:00 08/20/16 06:59 Simethicone (Mylicon Chew Tab) 80 mg PC PRN PO 07/21/16 06:45 08/20/16 06:44 Simvastatin (Zocor Tab) 20 mg HS PO 07/21/16 22:00 08/20/16 21:59 07/24/16 21:52 20 MG Miscellaneous Information (Order Awaiting Action) 1 ea QS N/A 07/21/16 08:00 08/20/16 07:59 Clonazepam (Klonopin Tab) 0.5 mg DAILY@1200,2000 PO 07/21/16 20:00 08/20/16 19:59 07/24/16 21:52 0.5 MG Lab Results Last 24 Hrs: 07/21/16 00:20 Red Blood Count 4.71, Mean Corpuscular Volume 87.7, Mean Corpuscular Hemoglobin 31.8, Mean Corpuscular Hemoglobin Concent 36.3, Mean Platelet Volume 9.4, Neutrophils (%) (Auto) 76.0, Lymphocytes (%) (Auto) 13.9, Monocytes (%) (Auto) 9.4, Eosinophils (%) (Auto) 0.0, Basophils (%) (Auto) 0.2, Neutrophils # (Auto) 9.70, Lymphocytes # (Auto) 1.77, Monocytes # (Auto) 1.20, Eosinophils # (Auto) 0.00, Basophils # (Auto) 0.02 07/21/16 00:20 Test 07/21/16 00:10 07/21/16 00:20 07/22/16 07:00 07/22/16 11:45 Urine Color YELLOW Urine Appearance CLEAR (CLEAR) Urine pH 6.0 (4.5-7.5) Urine Specific [place] 1.005 (1.000-1.030) Urine Protein NEG (NEG) Urine Glucose (UA) NEG (NEG) Urine Ketones TRACE (NEG) Urine Occult Blood 2+ (NEG) Urine Nitrite NEG (NEG) Urine Bilirubin NEG (NEG) Urine Urobilinogen NEG (NEG) Urine Leukocyte Esterase NEG (NEG) Urine WBC (Auto) 1-5 /hpf (0-5) Urine RBC (Auto) 5-10 /hpf (0-4) Urine Hyaline Casts (Auto) 1-5 /lpf (0-5) Urine Epithelial Cells (Auto) 0-5 /lpf (0-5) Urine Bacteria (Auto) NEG (NEG) Urine Opiates Screen NEG (NEG) Urine Methadone, Qualitative NEG (NEG) Urine Barbiturates NEG (NEG) Urine Phencyclidine (PCP) Level NEG (NEG) Ur Amphetamine/Methamphetamine NEG (NEG) MDMA (Ecstasy) Screen NEG (NEG) Urine Benzodiazepines Screen NEG (NEG) Urine Cocaine Metabolite NEG (NEG) Urine Marijuana (THC) NEG (NEG) White Blood Count 12.75 K/uL (4.8-10.8) Red Blood Count 4.71 M/uL (4.7-6.1) Hemoglobin 15.0 g/dL (14.0-18.0) Hematocrit 41.3 % (42-52) Mean Corpuscular Volume 87.7 fL (80-100) Mean Corpuscular Hemoglobin 31.8 pg (25-34) Mean Corpuscular Hemoglobin Concent 36.3 g/dl (32-36) Platelet Count 258 K/uL (130-400) Mean Platelet Volume 9.4 fL (7.4-10.4) Neutrophils (%) (Auto) 76.0 % Lymphocytes (%) (Auto) 13.9 % Monocytes (%) (Auto) 9.4 % Eosinophils (%) (Auto) 0.0 % Basophils (%) (Auto) 0.2 % Neutrophils # (Auto) 9.70 K/uL (1.4-6.5) Lymphocytes # (Auto) 1.77 K/uL (1.2-3.4) Monocytes # (Auto) 1.20 K/uL (0.11-0.59) Eosinophils # (Auto) 0.00 K/uL (0-0.5) Basophils # (Auto) 0.02 K/uL (0-0.2) RDW Standard Deviation 38.9 fL (36.4-46.3) RDW Coefficient of Variation 12.1 % (11.5-14.5) Immature Granulocyte % (Auto) 0.5 % Immature Granulocyte # (Auto) 0.06 K/uL (0.00-0.02) Anion Gap 12.0 mmol/L (3-11) Est Creatinine Clear Calc Drug Dose 98.9 ml/min Estimated GFR () 96.8 Estimated GFR (Non- 83.5 BUN/Creatinine Ratio 12.3 (10-20) Calcium Level 9.2 mg/dl (8.5-10.1) Total Bilirubin 0.2 mg/dl (0.2-1) Aspartate Amino Transf (AST/SGOT) 20 U/L (15-37) Alanine Aminotransferase (ALT/SGPT) 38 U/L (12-78) Alkaline Phosphatase 63 U/L (45-117) Total Protein 7.8 gm/dl (6.4-8.2) Albumin 4.2 gm/dl (3.4-5.0) Globulin 3.6 gm/dl (2.5-4.0) Albumin/Globulin Ratio 1.2 (0.9-2) Thyroid Stimulating Hormone (TSH) 1.100 uIu/ml (0.300-4.500) Chemistry Specimen Hemolysis Salicylates Level < 1.7 mg/dl (2.8-20) Acetaminophen Level < 2 ug/ml (10-30) Ethyl Alcohol mg/dL < 3.0 mg/dl (0-3) Fasting Glucose 95 mg/dl (70-99) Triglycerides Level 176 mg/dl (0-150) Cholesterol Level 189 mg/dl (0-200) HDL Cholesterol 47 mg/dl LDL Cholesterol, Calculated 107 mg/dl VLDL Cholesterol, Calculated 35 mg/dl Cholesterol/HDL Ratio 4.0 Valproic Acid (Depakene) Level 77 mcg/ml (50-100)
[2016-07-25] MEDS: CLONAZEPAM 0.5 MG TAB PO SCH ×2 (12:20→21:08)
[2016-07-25] MEDS: PROPRANOLOL HCL 10 MG TAB PO SCH (12:20)
[2016-07-25] MEDS: IBUPROFEN 600 MG TAB PO PRN (16:33)
[2016-07-25] MEDS: AMITRIPTYLINE HCL 50 MG TAB PO SCH (21:09)
[2016-07-25] MEDS: DIVALPROEX 500 MG EXTENDED RELEASE TAB PO SCH (21:09)
[2016-07-25] MEDS: SIMVASTATIN 20 MG TAB PO SCH (21:09)
[2016-07-25] MEDS ORDERED: CLOZAPINE 100 MG TAB PO ONE (22:00)
[2016-07-26 06:42] VITALS: BP_SYST 93; BP_SYST 95; BP_DIAS 64; BP_DIAS 69; PULSE 77; PULSE 83; TEMP 36.5
[2016-07-26] MEDS: LISINOPRIL 5 MG TAB PO SCH (08:28)
[2016-07-26] MEDS: CHOLECALCIFEROL 1000 INTER.UNIT TAB PO SCH (08:28)
--- NOTE | 2016-07-26 09:45 | Psychiatric Progress Notes ---
Progress Note Date of Service Jul 26, 2016. Interval History Faustino Becker is a 41-year-old male with schizoaffective disorder who lives at [facility] and was admitted on a 201 voluntary commitment after calling [facility]. Chief Complaint "Good". Subjective Patient was seen & assessed interval progress reviewed with Treatment Team. The patient says that he is doing well. He feels relaxed. He continues to deny SI/HI, aud/vis hallucinations, but remains tired in the day and wonders in his clozaril will be switched to HS tonight. He will be returning to [facility] on discharge and feels that this is a good place to live. He has no concerns today and says that he thinks he will be able to go home as soon as tomorrow. Review of Systems Constitutional: + fatigue ENT: No dental problems, No hearing loss, No nasal symptoms, No problem reported, No sore throat, No tinnitus, No trouble swallowing, No unusual epistaxis Respiratory: No cough, No dyspnea at rest, No dyspnea on exertion, No hemoptysis, No problem reported, No shortness of breath, No sputum, No wheezing Cardiovascular: No PND, No chest pain, No claudication, No edema, No orthopnea , No palpitations, No problem reported Abdomen: No GI bleeding, No constipation, No diarrhea, No nausea, No pain, No problem reported, No vomiting Musculoskeletal: No calf pain, No joint pain, No muscle pain, No problem reported, No swelling Neurologic: No balance problems, No memory loss, No numbness/tingling, No paralysis, No problem reported, No vertigo, No weakness Psychiatric: + problem reported (reports feeling "good") Integumentary: No bleeding, No color change, No itch, No new/changing skin lesions, No problem reported, No rash Sleep Information Total Hours of Sleep: 6.25 Meal Information Percent of Breakfast Consumed: 100 Percent of Lunch Consumed: 75 Percent of Dinner Consumed: 100 Mental Status Exam During interview pt is: cooperative Appearance: disheveled Eye contact is: good Motor behavior is: steady gait & station, no abnormal motor movements Speech: normal in rate, rhythm & volume Affect: blunted Mood is: other ("Good") Thought process: goal directed, concrete Thought content: reality based without delusions Suicidal thought are: denied Homicidal thoughts are: denied Hallucinations: denies auditory, denies visual Cognition: language grossly intact Intelligence estimated to be: consistent with level of education Insight: limited Judgement: limited Impression The patient says that he is benefitting from being in the hospital as he struggles to understand why he decompensated. He is sedated during the day and so Clozaril will be dosed all at HS starting tonight. If there is no evidence of decompensation with his AM dose, then could consider DC as soon as tomorrow. Continued Inpatient Care While suicidality has been denied since admission to hospital, a period of appropriate monitoring is felt to be medically necessary and appropriate to monitor for safety in this chronic mental health patient Plan (1) Schizoaffective disorder, manic type on admit: The patient is [facility] on q 15 min checks (behavioral with suicide precautions) for safety. The patient will participate in group, recreational and milieu therapies and will be offered additional individual and family sessions as clinically appropriate. will titrate Klonopin for now, repeat VPA level in am with fasting lipid and glucose profile. consider clozaril titration 07/22 - Depakote level within therapeutic range at 77. Tolerating dose escalation of clonazepam and appears calm today but still demonstrating some affective volatility and appears somewhat stimulus bound. Continues to decline dose escalation of clozapine which might be helpful. Will check amitriptyline level this morning and may consider adjustment. Lipid panel notable for elevated tri' s which will need monitoring on the clozaril. 07/23 - Appearing more calm and composed over the last 24 hours. Staff continue to report that he appears pretty good compared to presentations in the past. Amitriptyline level drawn but not yet available for review. - Fasting lipids notable for mildly elevated triglycerides and fasting glucose within normal limits 07/22/2016. 07/24 - Symptoms much improved in hospital, but anxious about returning home and doesn't feel safe to leave. [place] and has difficulty exploring triggers at home, but admits to lots of time on social media, and drinking Monster energy drinks, both of which are likely to worsen symptoms. 07/25 - Change dosing of Clozaril to 300 mg. all at HS starting tomorrow to reduce daytime fatigue (2) HTN (hypertension) patient states propranolol is for anxiety, not high BP continue Lisinopril and will do daily VS Discharge / Aftercare Planning Primary Care Physician: Name: Dr Garcia Phone Number: Appointment Notes: as needed Psychiatrist: Name: Dr Reyes/Kendal Flowers PA-C at [facility] Phone Number: [phone] Date of Appointment: Aug 08, 2016 Time of Appointment: 9:15am Yard Operator: Name: Titi Castro at [facility] Phone Number: Date of Appointment: Jul 26, 2016 Time of Appointment: 1:00 Appointment Notes: Titi will come to unit if pt is still here Visit Code E&M Code: 41256 Risk Factors Assessment Male: Yes : Yes /single/: Yes Mental Health Diagnoses: Yes Previous attempt: Yes Previous psychiatric stay: Yes Protective Factors Assessment : No Responsible for young children: No Stable relationships: Yes Supportive family: No Good rapport with provider: Yes Data Vital Signs Last 24 Hrs: Date Time Temp Pulse Resp B/P Pulse Ox O2 Delivery O2 Flow Rate FiO2 07/26/16 06:42 36.5 77 16 93/64 83 95/69 Meds Administered Last 24 Hrs: Meds Administered (Past 24Hrs) Medications (Trade) Dose Ordered Sig/Tj Route Start Time Stop Time Status Last Admin Dose Admin Clozapine (Clozaril Tab) 200 mg 2200 ONCE PO 07/25/16 22:00 07/25/16 22:01 DC 07/25/16 21:09 200 MG Lab Results Last 24 Hrs: 07/21/16 00:20 Red Blood Count 4.71, Mean Corpuscular Volume 87.7, Mean Corpuscular Hemoglobin 31.8, Mean Corpuscular Hemoglobin Concent 36.3, Mean Platelet Volume 9.4, Neutrophils (%) (Auto) 76.0, Lymphocytes (%) (Auto) 13.9, Monocytes (%) (Auto) 9.4, Eosinophils (%) (Auto) 0.0, Basophils (%) (Auto) 0.2, Neutrophils # (Auto) 9.70, Lymphocytes # (Auto) 1.77, Monocytes # (Auto) 1.20, Eosinophils # (Auto) 0.00, Basophils # (Auto) 0.02 07/21/16 00:20 Test 07/21/16 00:10 07/21/16 00:20 07/22/16 07:00 07/22/16 11:45 Urine Color YELLOW Urine Appearance CLEAR (CLEAR) Urine pH 6.0 (4.5-7.5) Urine Specific [place] 1.005 (1.000-1.030) Urine Protein NEG (NEG) Urine Glucose (UA) NEG (NEG) Urine Ketones TRACE (NEG) Urine Occult Blood 2+ (NEG) Urine Nitrite NEG (NEG) Urine Bilirubin NEG (NEG) Urine Urobilinogen NEG (NEG) Urine Leukocyte Esterase NEG (NEG) Urine WBC (Auto) 1-5 /hpf (0-5) Urine RBC (Auto) 5-10 /hpf (0-4) Urine Hyaline Casts (Auto) 1-5 /lpf (0-5) Urine Epithelial Cells (Auto) 0-5 /lpf (0-5) Urine Bacteria (Auto) NEG (NEG) Urine Opiates Screen NEG (NEG) Urine Methadone, Qualitative NEG (NEG) Urine Barbiturates NEG (NEG) Urine Phencyclidine (PCP) Level NEG (NEG) Ur Amphetamine/Methamphetamine NEG (NEG) MDMA (Ecstasy) Screen NEG (NEG) Urine Benzodiazepines Screen NEG (NEG) Urine Cocaine Metabolite NEG (NEG) Urine Marijuana (THC) NEG (NEG) White Blood Count 12.75 K/uL (4.8-10.8) Red Blood Count 4.71 M/uL (4.7-6.1) Hemoglobin 15.0 g/dL (14.0-18.0) Hematocrit 41.3 % (42-52) Mean Corpuscular Volume 87.7 fL (80-100) Mean Corpuscular Hemoglobin 31.8 pg (25-34) Mean Corpuscular Hemoglobin Concent 36.3 g/dl (32-36) Platelet Count 258 K/uL (130-400) Mean Platelet Volume 9.4 fL (7.4-10.4) Neutrophils (%) (Auto) 76.0 % Lymphocytes (%) (Auto) 13.9 % Monocytes (%) (Auto) 9.4 % Eosinophils (%) (Auto) 0.0 % Basophils (%) (Auto) 0.2 % Neutrophils # (Auto) 9.70 K/uL (1.4-6.5) Lymphocytes # (Auto) 1.77 K/uL (1.2-3.4) Monocytes # (Auto) 1.20 K/uL (0.11-0.59) Eosinophils # (Auto) 0.00 K/uL (0-0.5) Basophils # (Auto) 0.02 K/uL (0-0.2) RDW Standard Deviation 38.9 fL (36.4-46.3) RDW Coefficient of Variation 12.1 % (11.5-14.5) Immature Granulocyte % (Auto) 0.5 % Immature Granulocyte # (Auto) 0.06 K/uL (0.00-0.02) Anion Gap 12.0 mmol/L (3-11) Est Creatinine Clear Calc Drug Dose 98.9 ml/min Estimated GFR () 96.8 Estimated GFR (Non- 83.5 BUN/Creatinine Ratio 12.3 (10-20) Calcium Level 9.2 mg/dl (8.5-10.1) Total Bilirubin 0.2 mg/dl (0.2-1) Aspartate Amino Transf (AST/SGOT) 20 U/L (15-37) Alanine Aminotransferase (ALT/SGPT) 38 U/L (12-78) Alkaline Phosphatase 63 U/L (45-117) Total Protein 7.8 gm/dl (6.4-8.2) Albumin 4.2 gm/dl (3.4-5.0) Globulin 3.6 gm/dl (2.5-4.0) Albumin/Globulin Ratio 1.2 (0.9-2) Thyroid Stimulating Hormone (TSH) 1.100 uIu/ml (0.300-4.500) Chemistry Specimen Hemolysis Salicylates Level < 1.7 mg/dl (2.8-20) Acetaminophen Level < 2 ug/ml (10-30) Ethyl Alcohol mg/dL < 3.0 mg/dl (0-3) Fasting Glucose 95 mg/dl (70-99) Triglycerides Level 176 mg/dl (0-150) Cholesterol Level 189 mg/dl (0-200) HDL Cholesterol 47 mg/dl LDL Cholesterol, Calculated 107 mg/dl VLDL Cholesterol, Calculated 35 mg/dl Cholesterol/HDL Ratio 4.0 Valproic Acid (Depakene) Level 77 mcg/ml (50-100)
[2016-07-26] MEDS: CLONAZEPAM 0.5 MG TAB PO SCH ×2 (12:20→21:09)
[2016-07-26] MEDS: PROPRANOLOL HCL 10 MG TAB PO SCH (12:21)
[2016-07-26] MEDS: AMITRIPTYLINE HCL 50 MG TAB PO SCH (21:08)
[2016-07-26] MEDS: DIVALPROEX 500 MG EXTENDED RELEASE TAB PO SCH (21:09)
[2016-07-26] MEDS: SIMVASTATIN 20 MG TAB PO SCH (21:09)
[2016-07-26] MEDS ORDERED: CLOZAPINE 100 MG TAB PO SCH (22:00)
[2016-07-27 01:34] LABS: AMI & NORTRIPTYLINE 257 MCG/L (100-250); AMITRIPTYLINE 113 (SEE TOTAL); NORTRIPTYLINE 144 (SEE TOTAL)
[2016-07-27 06:40] VITALS: BP_SYST 100; BP_SYST 123; BP_DIAS 68; BP_DIAS 85; PULSE 76; PULSE 81; TEMP 36.6
[2016-07-27] MEDS: CHOLECALCIFEROL 1000 INTER.UNIT TAB PO SCH (08:52)
[2016-07-27] MEDS: LISINOPRIL 5 MG TAB PO SCH (08:53)
[2016-07-27] MEDS ORDERED: CLON0.5T3 PO (09:32)
[2016-07-27] MEDS ORDERED: CLOZ100T18 PO (09:32)
--- NOTE | 2016-07-27 09:42 | Discharge Instructions ---
Discharge Information Report Includes Report will include the: Discharge Instructions & Summary Admission Admission Date / Time: Jul 21, 2016 at 02:57 Reason for Admission: Paranoid Suicidal Ideations, Schizoaffective Disor Discharge Discharge Diagnosis / Problem: Schizoaffective disorder Condition at Discharge: Good Discharge Goals Goal(s): Decrease discomfort, Improve disease control, Prevent Disease Progression Activity Recommendations Activity Limitations: resume your previous activity . Instructions / Follow-Up Instructions / Follow-Up . SPECIAL CARE INSTRUCTIONS: 1. Follow through with your scheduled aftercare appointments. If unable to keep an appointment, please call to reschedule. 2. Take your medication only as prescribed. Medication should not be changed or stopped without the approval of your doctor. In the event of worsening symptoms or concerns about side effects, contact your doctor immediately. 3. Utilize new healthy coping skills, anger management skills, and stress management skills learned during your hospitalization. Journal feelings and process them with a support person. Identify stressors or situations that may result in relapse, deterioration or inappropriate behaviors and develop a plan to deal with those issues. 4. If your coping skills are ineffective and you are in crisis, contact your outpatient providers for direction. If unable to reach your providers, please call the CAN HELP LINE AT or go to the closest Emergency Room. 5. Avoid alcohol and un-prescribed drugs. 6. You have been provided with the Mental Health Advance Directives Pamphlet for your review. AFTERCARE APPOINTMENTS: * Please call your insurance company prior to your scheduled appointment to confirm your aftercare providers are covered. Take your insurance information to your appointments. . Discharge / Aftercare Planning Primary Care Physician: Name: Dr Garcia Phone Number: Appointment Notes: as needed Psychiatrist: Name: Dr Reyes/Kendal Flowers PA-C at [facility] Phone Number: [phone] Date of Appointment: Aug 08, 2016 Time of Appointment: 9:15am Public Speaking Instructor: Name: Titi Castro at [facility] Phone Number: Date of Appointment: Aug 02, 2016 Time of Appointment: 1:00 Appointment Notes: check w Bill to make sure this is his weekly time for you Partial or Psych Rehab: Name: [facility] Phone Number: [phone] Date Of Appointment: Jul 27, 2016 Appointment Comments: per weekly schedule . Follow-Up Care Plan for Follow-Up Care: The patient will have prompt follow up with current providers. Current Hospital Diet Patient's current hospital diet: Regular Diet Discharge Diet Recommended Diet: Regular Diet Procedures Procedures Performed: No Pending Studies Pending Studies at Discharge: No Medical Emergencies . Who to Call and When: Medical Emergencies: For questions or emergencies related to your hospital stay, please contact the Inpatient Behavioral Health Unit at [phone]. A environmental science technician is on-call 04/12 for the Behavioral Health Unit for emergencies At any time you feel your situation is an emergency, you may also call 911 immediately. . Non-Emergent Contact Non-Emergency issues call your: Psychiatrist, Therapist Advance Directives Existing Advance Directive: No Do You Have an Existing Mental: No Existing Living Will: No Existing Power of Tabulating Machine Mechanic: No Advance Directives Info Given: To Pt/S.O. Discharge Summary Admission HPI Per the Admitting provider: Faustino Becker is a 41-year-old single white male with a PMH significant for schizoaffective disorder, biploar type who presented to the ER yesterday with acute paranoia, suicidal ideations, homicidal ideations, and possible auditory hallucinations. He is well known to the [facility] from several previous admissions, the first of which was at age [age] years old. He has required several inpatient psychiatric hospitalizations here and at [facility], [facility], and two years at [facility]. Most recently he was hospitalized for 10 days at the [facility] for "chronic fatigue." The only change to his medications following this hospitalization was the addition of L- carnitine. Yesterday, Faustino states that he started feeling thinking of various means by which he could commit suicide. He went for an hour long "mindfulness" walk. He also listened to music and took a shower, none of which improved his thought content. For example, he was thinking of how he could ask the staff at his living facility for his knife and use it to cut himself in various places on his body. Later, he took a Vistaril prn and then just felt "antsy", he was considering posting an article he had written on [employer]. It is unclear if this was his article about a "man who saved me" in [place] who is the creator of [employer]. He states that his biggest complaint is that lately he has been "hyper -focused" on lights and high end computer hardware, and cars. He becomes so focused and obsessive that these are all that he can think about, and it is " not fun." He does describe ideas of reference whereby he thinks a car tried to signal him and then almost swiped him. He describes his mood as 5/10 and "in between," and describes that lately he has been in a "bad mood." He describes episodes of manic behavior including grandiosity, extreme irritability, increased pacing, increased pressure on self to perform and not disappoint, flight of ideas, and rapid speech. During these episodes he reports "delusional hallucinations" but cannot express further on what this means to him. He reports good appetite but is concerned about 7 pound weight loss in the last week. Admission Exam Per the Admitting provider: Please see attached H&P Hospital Course (1) Schizoaffective disorder, manic type on admit: The patient is admitted to [facility] ([facility] mental health unit) on q 15 min checks (behavioral with suicide precautions) for safety. The patient will participate in group, recreational and milieu therapies and will be offered additional individual and family sessions as clinically appropriate. will titrate Klonopin for now, repeat VPA level in am with fasting lipid and glucose profile. consider clozaril titration 07/22 - Depakote level within therapeutic range at 77. Tolerating dose escalation of clonazepam and appears calm today but still demonstrating some affective volatility and appears somewhat stimulus bound. Continues to decline dose escalation of clozapine which might be helpful. Will check amitriptyline level this morning and may consider adjustment. Lipid panel notable for elevated tri' s which will need monitoring on the clozaril. 07/23 - Appearing more calm and composed over the last 24 hours. Staff continue to report that he appears pretty good compared to presentations in the past. Amitriptyline level drawn but not yet available for review. - Fasting lipids notable for mildly elevated triglycerides and fasting glucose within normal limits 07/22/2016. 07/24 - Symptoms much improved in hospital, but anxious about returning home and doesn't feel safe to leave. [place] and has difficulty exploring triggers at home, but admits to lots of time on social media, and drinking Monster energy drinks, both of which are likely to worsen symptoms. 07/25 - Change dosing of Clozaril to 300 mg. all at HS starting tomorrow to reduce daytime fatigue (2) HTN (hypertension) patient states propranolol is for anxiety, not high BP continue Lisinopril and will do daily VS Risk Factors Assessment Male: Yes : Yes /single/: Yes Mental Health Diagnoses: Yes Previous attempt: Yes Previous psychiatric stay: Yes Protective Factors Assessment : No Responsible for young children: No Stable relationships: Yes Supportive family: No Good rapport with provider: Yes Day of Discharge Assessment COURSE OF HOSPITALIZATION: During the patient's 6 day stay, medications were adjusted. His Klonopin was increased from 0.25 mg twice a day to 0.5 mg twice a day to address his anxiety. Clozaril dosing was adjusted so that all 300 mg was taken at bedtime. He tolerated these adjustments well and without side effect. Throughout his stay, he denied any auditory or visual hallucinations, but he did feel as if his thinking had been unclear in that his mood had been depressed. He denied suicidal or homicidal thinking throughout his stay. He did seem tired during the day and spent a great deal of time in bed although was a relatively good group participant. Contact was made with the patient's case investigator, Titi Castro, who confirmed that the patient has been doing well since his discharge from [facility] a year ago. 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 The patient has been living at [facility] and feels that this is a good place for him to stay and will return there at discharge. DAY OF DISCHARGE ASSESSMENT: Today the patient is requesting discharge. He feels improved, and able to return home. He denies any anxiety about discharge today. He denies suicidal or homicidal thoughts. Today he is casually and appropriately dressed and groomed. Eye contact is good. Gait and station are within normal limits. Affect is restricted. Speech is of normal rate volume and tone. Thoughts are organized and goal directed, and without overt evidence of thought disorder. Recent and remote memory are intact per conversation. Intelligence is estimated to be average. Insight and judgment are improved over admission. Laboratory 07/21/16 00:20 Red Blood Count 4.71, Mean Corpuscular Volume 87.7, Mean Corpuscular Hemoglobin 31.8, Mean Corpuscular Hemoglobin Concent 36.3, Mean Platelet Volume 9.4, Neutrophils (%) (Auto) 76.0, Lymphocytes (%) (Auto) 13.9, Monocytes (%) (Auto) 9.4, Eosinophils (%) (Auto) 0.0, Basophils (%) (Auto) 0.2, Neutrophils # (Auto) 9.70, Lymphocytes # (Auto) 1.77, Monocytes # (Auto) 1.20, Eosinophils # (Auto) 0.00, Basophils # (Auto) 0.02 07/21/16 00:20 Test 07/21/16 00:10 07/21/16 00:20 07/22/16 07:00 07/22/16 11:45 Urine Color YELLOW Urine Appearance CLEAR (CLEAR) Urine pH 6.0 (4.5-7.5) Urine Specific [place] 1.005 (1.000-1.030) Urine Protein NEG (NEG) Urine Glucose (UA) NEG (NEG) Urine Ketones TRACE (NEG) Urine Occult Blood 2+ (NEG) Urine Nitrite NEG (NEG) Urine Bilirubin NEG (NEG) Urine Urobilinogen NEG (NEG) Urine Leukocyte Esterase NEG (NEG) Urine WBC (Auto) 1-5 /hpf (0-5) Urine RBC (Auto) 5-10 /hpf (0-4) Urine Hyaline Casts (Auto) 1-5 /lpf (0-5) Urine Epithelial Cells (Auto) 0-5 /lpf (0-5) Urine Bacteria (Auto) NEG (NEG) Urine Opiates Screen NEG (NEG) Urine Methadone, Qualitative NEG (NEG) Urine Barbiturates NEG (NEG) Urine Phencyclidine (PCP) Level NEG (NEG) Ur Amphetamine/Methamphetamine NEG (NEG) MDMA (Ecstasy) Screen NEG (NEG) Urine Benzodiazepines Screen NEG (NEG) Urine Cocaine Metabolite NEG (NEG) Urine Marijuana (THC) NEG (NEG) White Blood Count 12.75 K/uL (4.8-10.8) Red Blood Count 4.71 M/uL (4.7-6.1) Hemoglobin 15.0 g/dL (14.0-18.0) Hematocrit 41.3 % (42-52) Mean Corpuscular Volume 87.7 fL (80-100) Mean Corpuscular Hemoglobin 31.8 pg (25-34) Mean Corpuscular Hemoglobin Concent 36.3 g/dl (32-36) Platelet Count 258 K/uL (130-400) Mean Platelet Volume 9.4 fL (7.4-10.4) Neutrophils (%) (Auto) 76.0 % Lymphocytes (%) (Auto) 13.9 % Monocytes (%) (Auto) 9.4 % Eosinophils (%) (Auto) 0.0 % Basophils (%) (Auto) 0.2 % Neutrophils # (Auto) 9.70 K/uL (1.4-6.5) Lymphocytes # (Auto) 1.77 K/uL (1.2-3.4) Monocytes # (Auto) 1.20 K/uL (0.11-0.59) Eosinophils # (Auto) 0.00 K/uL (0-0.5) Basophils # (Auto) 0.02 K/uL (0-0.2) RDW Standard Deviation 38.9 fL (36.4-46.3) RDW Coefficient of Variation 12.1 % (11.5-14.5) Immature Granulocyte % (Auto) 0.5 % Immature Granulocyte # (Auto) 0.06 K/uL (0.00-0.02) Anion Gap 12.0 mmol/L (3-11) Est Creatinine Clear Calc Drug Dose 98.9 ml/min Estimated GFR () 96.8 Estimated GFR (Non- 83.5 BUN/Creatinine Ratio 12.3 (10-20) Calcium Level 9.2 mg/dl (8.5-10.1) Total Bilirubin 0.2 mg/dl (0.2-1) Aspartate Amino Transf (AST/SGOT) 20 U/L (15-37) Alanine Aminotransferase (ALT/SGPT) 38 U/L (12-78) Alkaline Phosphatase 63 U/L (45-117) Total Protein 7.8 gm/dl (6.4-8.2) Albumin 4.2 gm/dl (3.4-5.0) Globulin 3.6 gm/dl (2.5-4.0) Albumin/Globulin Ratio 1.2 (0.9-2) Thyroid Stimulating Hormone (TSH) 1.100 uIu/ml (0.300-4.500) Chemistry Specimen Hemolysis Salicylates Level < 1.7 mg/dl (2.8-20) Acetaminophen Level < 2 ug/ml (10-30) Ethyl Alcohol mg/dL < 3.0 mg/dl (0-3) Fasting Glucose 95 mg/dl (70-99) Triglycerides Level 176 mg/dl (0-150) Cholesterol Level 189 mg/dl (0-200) HDL Cholesterol 47 mg/dl LDL Cholesterol, Calculated 107 mg/dl VLDL Cholesterol, Calculated 35 mg/dl Cholesterol/HDL Ratio 4.0 Valproic Acid (Depakene) Level 77 mcg/ml (50-100) Amitriptyline (Elavil) Level 113 (SEE TOTAL) Amitriptyline & Nortriptyline 257 MCG/L (100-250) Nortriptyline (Aventyl) Level 144 (SEE TOTAL) Total Time Total Time Spent (min): Greater than 30 minutes Total Time Included: examination of the patient, discharge planning, medication reconciliation, communication with other providers Tobacco Cessation at Discharge FDA approved Prescription: non-smoker
[2016-07-27] MEDS: CLONAZEPAM 0.5 MG TAB PO SCH (11:30)
[2016-07-27] MEDS: PROPRANOLOL HCL 10 MG TAB PO SCH (11:31)
[2016-07-27] MEDS ORDERED: LEVO500C2 PO (11:54)
== END 2016-07-27 11:55 | disposition home or self-care (01) | DRG 885 ==
LOC: ENRESERVTM → ENRESERVDT → EDBD 23:48 → C.EDB 23:50 → C.MHU 07-21 02:57
PROVIDERS: ADMIT Psychiatry & Neurology Child & Adolescent Psychiatry; ATTEND Psychiatry & Neurology Child & Adolescent Psychiatry
DX: F25.0 Schizoaffective disorder, bipolar type (principal); R45.851 Suicidal ideations; E78.00 Pure hypercholesterolemia, unspecified; R45.850 Homicidal ideations; F41.9 Anxiety disorder, unspecified; I10 Essential (primary) hypertension; F22 Delusional disorders; Z87.891 Personal history of nicotine dependence; Z79.899 Other long term (current) drug therapy; Z79.1 Long term (current) use of non-steroidal anti-inflammatories (NSAID)

== ENCOUNTER 2017-01-19 21:03 | Emergency (ER) | payer OTHER ==
[~2017-01-19] VITALS: Ht 175.3 cm; Wt 89.4 kg
[~2017-01-19 21:03] MED LIST changes: -CLON0.5T3 PO; +LEVO500C2 PO
[2017-01-19 21:17] VITALS: TEMP 36.7; Ht 175.3 cm; Wt 89.4 kg
--- NOTE | 2017-01-19 22:05 | EMERGENCY ROOM VISIT NOTE ---
History Report prepared by Rubina: Favina Garcia Under the Supervision of: Dr. Galo Mccullough D.O. First contact with patient: 21:55 Chief Complaint: MENTAL HEALTH EVALUATION Stated Complaint: HYPER PSYCHOTIC History of Present Illness The patient is a 41 year old male who presents to the Emergency Room for a mental health evaluation. Today, the patient was at the [facility] rock climbing with his friend when he began to feel very overwhelmed because of all of the children making noise. He then noticed light reflecting off of his shoes that he states was multicolored. This happened to him before in May of this year. He came to [facility] and his medications were changed. He notes to be having increased stress as of late. He has a past medical history of delusions. He denies any suicidal ideation or homicidal ideation. Source of History: patient Onset: this evening Position: other (Mental Health) Symptom Intensity: moderate Quality: other (Mental Health Evaluation) Timing: constant Note: He denies any suicidal ideation or homicidal ideation. Review of Systems See HPI for pertinent positives and negatives. A total of ten systems were reviewed and were otherwise negative. Past Medical & Surgical Medical Problems: (1) Anxiety (2) Bipolar disorder (3) HTN (hypertension) (4) Overdose (5) Schizoaffective disorder Family History Depression Social History Smoking Status: Former Smoker Alcohol Use: none Drug Use: none Marital Status: single Housing Status: lives with roommate Occupation Status: unemployed, student Current/Historical Medications Scheduled Amitriptyline Hcl (Elavil), 100 MG PO HS Cholecalciferol (Vitamin D 1000 Unit), 1,000 INTER.UNIT PO QAM Clozapine (Clozapine), 200 MG PO HS Clozapine (Clozapine), 100 MG PO HS Divalproex Sodium (Depakote Er), 1,500 MG PO HS Levocarnitine (L-Carnitine), 500 MG PO TID Lisinopril (Zestril), 5 MG PO QAM Propranolol (Inderal), 10 MG PO DAIY@NOON Simvastatin (Zocor), 20 MG PO HS Scheduled PRN Ibuprofen (Motrin), 600 MG PO Q6H PRN for Pain Sennosides-Docusate Sodium (Doc-Q-Lax), 100 MG PO Q12 PRN for Constipation Simethicone (Gas-X), 80 MG PO PC PRN for GI Upset Allergies Coded Allergies: Chlorpromazine (Verified Allergy, Unknown, unknown, 01/19/17) Guanfacine (Unverified Allergy, Unknown, UNKNOWN, 01/19/17) Risperidone (Verified Allergy, Unknown, HAS HAD ZYPREXA WITHOUT PROBLEM, ) Ziprasidone (Verified Adverse Reaction, Severe, INSIDE FEELS LIKE BROKEN GLASS, 01/19/17) Antihistamines, Loratadine-type (Unverified Adverse Reaction, Unknown, HIGH ENERGY, 01/19/17) Physical Exam Vital Signs Date Time Temp Pulse Resp B/P (MAP) Pulse Ox O2 Delivery O2 Flow Rate FiO2 01/19/17 21:17 36.7 122 20 136/96 94 Room Air Physical Exam GENERAL: Awake, alert, well-appearing, in no distress HENT: Normocephalic, atraumatic. Oropharynx unremarkable. EYES: Normal conjunctiva. Sclera non-icteric. NECK: Supple. No nuchal rigidity. FROM. No JVD. RESPIRATORY: Clear to auscultation. CARDIAC: Regular rate, normal rhythm. Extremities warm and well perfused. Pulses equal. ABDOMEN: Soft, non-distended. No tenderness to palpation. No rebound or guarding. No masses. RECTAL: Deferred. MUSCULOSKELETAL: Chest examination reveals no tenderness. The back is symmetrical on inspection without obvious abnormality. There is no CVA tenderness to palpation. No joint edema. LOWER EXTREMITIES: Calves are equal size bilaterally and non-tender. No edema. No discoloration. NEURO: Normal sensorium. No sensory or motor deficits noted. SKIN: No rash or jaundice noted. PSYCH: Denies any suicidal or homicidal ideation. Tangential thoughts. Medical Decision & Procedures Laboratory Results 01/19/17 22:18 Red Blood Count 4.70, Mean Corpuscular Volume 90.9, Mean Corpuscular Hemoglobin 31.3, Mean Corpuscular Hemoglobin Concent 34.4, Mean Platelet Volume 9.3, Neutrophils (%) (Auto) 70.2, Lymphocytes (%) (Auto) 16.3, Monocytes (%) (Auto) 12.7, Eosinophils (%) (Auto) 0.0, Basophils (%) (Auto) 0.1, Neutrophils # (Auto ) 5.27, Lymphocytes # (Auto) 1.22, Monocytes # (Auto) 0.95, Eosinophils # (Auto ) 0.00, Basophils # (Auto) 0.01 01/19/17 22:18 Test 01/19/17 21:40 01/19/17 22:18 Urine Color DK YELLOW Urine Appearance CLEAR (CLEAR) Urine pH 7.0 (4.5-7.5) Urine Specific [place] 1.020 (1.000-1.030) Urine Protein TRACE (NEG) Urine Glucose (UA) NEG (NEG) Urine Ketones 1+ (NEG) Urine Occult Blood 2+ (NEG) Urine Nitrite NEG (NEG) Urine Bilirubin NEG (NEG) Urine Urobilinogen NEG (NEG) Urine Leukocyte Esterase NEG (NEG) Urine WBC (Auto) 1-5 /hpf (0-5) Urine RBC (Auto) >30 /hpf (0-4) Urine Hyaline Casts (Auto) 1-5 /lpf (0-5) Urine Epithelial Cells (Auto) 10-20 /lpf (0-5) Urine Bacteria (Auto) NEG (NEG) Urine Opiates Screen NEG (NEG) Urine Methadone, Qualitative NEG (NEG) Urine Barbiturates NEG (NEG) Urine Phencyclidine (PCP) Level NEG (NEG) Ur Amphetamine/Methamphetamine NEG (NEG) MDMA (Ecstasy) Screen NEG (NEG) Urine Benzodiazepines Screen NEG (NEG) Urine Cocaine Metabolite NEG (NEG) Urine Marijuana (THC) NEG (NEG) White Blood Count 7.50 K/uL (4.8-10.8) Red Blood Count 4.70 M/uL (4.7-6.1) Hemoglobin 14.7 g/dL (14.0-18.0) Hematocrit 42.7 % (42-52) Mean Corpuscular Volume 90.9 fL (80-100) Mean Corpuscular Hemoglobin 31.3 pg (25-34) Mean Corpuscular Hemoglobin Concent 34.4 g/dl (32-36) Platelet Count 258 K/uL (130-400) Mean Platelet Volume 9.3 fL (7.4-10.4) Neutrophils (%) (Auto) 70.2 % Lymphocytes (%) (Auto) 16.3 % Monocytes (%) (Auto) 12.7 % Eosinophils (%) (Auto) 0.0 % Basophils (%) (Auto) 0.1 % Neutrophils # (Auto) 5.27 K/uL (1.4-6.5) Lymphocytes # (Auto) 1.22 K/uL (1.2-3.4) Monocytes # (Auto) 0.95 K/uL (0.11-0.59) Eosinophils # (Auto) 0.00 K/uL (0-0.5) Basophils # (Auto) 0.01 K/uL (0-0.2) RDW Standard Deviation 40.9 fL (36.4-46.3) RDW Coefficient of Variation 12.2 % (11.5-14.5) Immature Granulocyte % (Auto) 0.7 % Immature Granulocyte # (Auto) 0.05 K/uL (0.00-0.02) Anion Gap 8.0 mmol/L (3-11) Est Creatinine Clear Calc Drug Dose 90.5 ml/min Estimated GFR () 87.1 Estimated GFR (Non- 75.2 BUN/Creatinine Ratio 9.5 (10-20) Calcium Level 9.0 mg/dl (8.5-10.1) Total Bilirubin 0.2 mg/dl (0.2-1) Direct Bilirubin mg/dl (0-0.2) Aspartate Amino Transf (AST/SGOT) 20 U/L (15-37) Alanine Aminotransferase (ALT/SGPT) 41 U/L (12-78) Alkaline Phosphatase 64 U/L (45-117) Total Protein 7.3 gm/dl (6.4-8.2) Albumin 3.6 gm/dl (3.4-5.0) Thyroid Stimulating Hormone (TSH) 1.090 uIu/ml (0.300-4.500) Chemistry Specimen Hemolysis Ethyl Alcohol mg/dL < 3.0 mg/dl (0-3) Laboratory results reviewed by dc ED Course 2155: The patient was evaluated in room A10. A complete history and physical exam was performed. 4: I reevaluated the patient. The patient was also evaluated and cleared by the crisis management team. Discussed results and discharge instructions: He verbalized understanding and agreement. The patient is ready for discharge. Medical Decision Differential diagnoses include acute psychosis, acute delirium, and mood disorder. Seen by crisis counselor, cleared; stable on re-exam at 2338, would like to go home; NO SI, HI Medication Reconcilliation Current Medication List: was personally reviewed by me Blood Pressure Screening Patient's blood pressure: Normal blood pressure Blood pressure disposition: Did not require urgent referral Impression Primary Impression: Bipolar disorder Additional Impression: Delusion Scribe Attestation The scribe's documentation has been prepared under my direction and personally reviewed by me in its entirety. I confirm that the note above accurately reflects all work, treatment, procedures, and medical decision making performed by me. Departure Information Dispostion Home / Self-Care Referrals Nuvia Liao D.O. (PCP) Forms HOME CARE DOCUMENTATION FORM, IMPORTANT VISIT INFORMATION Patient Instructions Bipolar Disorder, My [facility] Health Problem Qualifiers
[2017-01-19 22:22] LABS: URINE APPEARANCE CLEAR (CLEAR); URINE BILIRUBIN NEG (NEG); URINE COLOR DK YELLOW; URINE NITRITE NEG (NEG); UROBILINOGEN NEG (NEG)
[2017-01-19 22:26] LABS: MANUAL MICROSCOPIC REQUIRED? NO; REVIEW REQ? NO
[2017-01-19 22:39] LABS: BASO % 0.1 %; BASO ABS # 0.01 K/uL (0-0.2); COMPLETE YES; HEMATOCRIT 42.7 % (42-52); IG% 0.7 %; LYMPH % 16.3 %; LYMPH ABS # 1.22 K/uL (1.2-3.4); MEAN CELL VOLUME 90.9 fL (80-100); MEAN CORPUSCULAR HEMOGLOBIN 31.3 pg (25-34); MEAN CORPUSCULAR HGB CONC 34.4 g/dl (32-36); MEAN PLATELET VOLUME 9.3 fL (7.4-10.4); MONO % 12.7 %; NEUT % 70.2 %; PLATELET COUNT 258 K/uL (130-400)
[2017-01-19 22:47] LABS: BENZODIAZEPINE, URINE NEG (NEG); COCAINE,URINE NEG (NEG); PHENCYCLIDINE, URINE NEG (NEG)
[2017-01-19 23:00] LABS: ALT/SGPT 41 U/L (12-78); BLOOD UREA NITROGEN 11 mg/dl (7-18); BUN/CREATININE RATIO 9.5 (10-20); CARBON DIOXIDE 26 mmol/L (21-32); CHLORIDE 106 mmol/L (98-107); GLUCOSE 71 mg/dl (70-99); POTASSIUM 3.8 mmol/L (3.5-5.1); SODIUM 140 mmol/L (136-145)
[2017-01-19 23:35] LABS: ALKALINE PHOSPHATASE 64 U/L (45-117); AST/SGOT 20 U/L (15-37)
[2017-01-19] MEDS ORDERED: CLON0.5T3 PO (23:38)
[2017-01-19 23:51] VITALS: BP 128/97; PULSE 105; O2SAT 95
== END 2017-01-19 23:53 | disposition home or self-care (01) ==
LOC: C.EDB 21:05 → C.EDC 23:53
DX: F31.9 Bipolar disorder, unspecified (principal); F22 Delusional disorders; F41.9 Anxiety disorder, unspecified; I10 Essential (primary) hypertension; F25.9 Schizoaffective disorder, unspecified; Z87.891 Personal history of nicotine dependence

== ENCOUNTER → 2017-05-05 | Outpatient (CLI) | payer OTHER ==
[~2017-05-05] MED LIST changes: +CLON0.5T3 PO; -LEVO500C2 PO; -SENN8.6T11 PO; +SENN8.6T96 PO; -SIME80CH PO
== END | disposition home or self-care (01) ==
LOC: C.LAB 21:58
DX: Z02.83 Encounter for blood-alcohol and blood-drug test (principal)

== ENCOUNTER 2017-05-13 21:34 | Emergency (ER) | payer OTHER ==
[~2017-05-13 21:34] MED LIST changes: -CLON0.5T3 PO; +KLN/5 PO
[2017-05-13 21:39] VITALS: TEMP 36.9
[2017-05-13 22:36] LABS: BASO % 0.4 %; BASO ABS # 0.03 K/uL (0-0.2); HEMOGLOBIN 14.4 g/dL (14.0-18.0); IG# 0.02 K/uL (0.00-0.02); LYMPH % 23.1 %; LYMPH ABS # 1.59 K/uL (1.2-3.4); MEAN CELL VOLUME 91.5 fL (80-100); MEAN PLATELET VOLUME 9.6 fL (7.4-10.4); MONO % 11.5 %; MONO ABS # 0.79 K/uL (0.11-0.59); NEUT % 64.7 %; NEUT ABS # 4.45 K/uL (1.4-6.5); PLATELET COUNT 240 K/uL (130-400); RED CELL DISTRIBUTION WIDTH CV 12.5 % (11.5-14.5); WHITE BLOOD COUNT 6.88 K/uL (4.8-10.8)
--- NOTE | 2017-05-13 22:37 | EMERGENCY ROOM VISIT NOTE ---
History Report prepared by Rubina: Sky Monk Under the Supervision of: Dr. Mack Keita M.D. First contact with patient: 21:53 Chief Complaint: MENTAL HEALTH EVALUATION Stated Complaint: PARANOIA History of Present Illness The patient is a 41 year old male who presents to the Emergency Room with complaints of persistent paranoia beginning today. He states that he has felt very obsessive recently. He states that he had an anxiety attack today as well. The patient states that he is worried about his new roommate, and thinks that his new roommate may have gone through his room. He denies any suicidal ideation or homicidal ideation. He denies auditory hallucinations. The patient has a history of schizoaffective disorder. He is on Clozapine, and Klonopin. He states that his friend was recently expressing suicidal thoughts which triggered the patient's symptoms. The patient denies abdominal pain, fevers, chills, cough, or congestion. He notes that he recently had some "bowel problems ". He denies any drug or alcohol use. Source of History: patient Onset: Today Quality: other (Paranoia) Timing: other (persistent) Associated Symptoms: No fevers, No chills, No cough, No abdominal pain Note: The patient denies congestion. Review of Systems See HPI for pertinent positives and negatives. A total of ten systems were reviewed and were otherwise negative. Past Medical & Surgical Medical Problems: (1) Anxiety (2) Bipolar disorder (3) HTN (hypertension) (4) Overdose (5) Schizoaffective disorder Family History Depression Social History Smoking Status: Former Smoker Alcohol Use: none Drug Use: none Marital Status: single Housing Status: lives with roommate Occupation Status: unemployed, student Current/Historical Medications Scheduled Amitriptyline Hcl (Elavil), 100 MG PO HS Cholecalciferol (Vitamin D 1000 Unit), 1,000 INTER.UNIT PO QAM Clonazepam (Klonopin), 0.5 MG PO BID Clozapine (Clozapine), 300 MG PO HS Divalproex Sodium (Depakote Er), 1,500 MG PO HS Lisinopril (Zestril), 5 MG PO QAM Propranolol (Inderal), 10 MG PO DAIY@NOON Simvastatin (Zocor), 20 MG PO HS Scheduled PRN Ibuprofen (Motrin), 600 MG PO Q6H PRN for Pain Sennosides-Docusate Sodium (Doc-Q-Lax), 100 MG PO Q12 PRN for Constipation Allergies Coded Allergies: Chlorpromazine (Verified Allergy, Unknown, unknown, 05/13/17) Guanfacine (Unverified Allergy, Unknown, UNKNOWN, 05/13/17) Risperidone (Verified Allergy, Unknown, HAS HAD ZYPREXA WITHOUT PROBLEM, 05/13/17) Ziprasidone (Verified Adverse Reaction, Severe, INSIDE FEELS LIKE BROKEN GLASS, 05/13/17) Antihistamines, Loratadine-type (Unverified Adverse Reaction, Unknown, HIGH ENERGY, 05/13/17) Physical Exam Vital Signs Date Time Temp Pulse Resp B/P (MAP) Pulse Ox O2 Delivery O2 Flow Rate FiO2 05/13/17 23:48 95 125/87 97 05/13/17 21:39 36.9 114 19 152/96 95 Room Air Physical Exam GENERAL: Awake, alert, anxious-appearing, colorful, in no distress HENT: Normocephalic, atraumatic. Oropharynx unremarkable. EYES: Normal conjunctiva. Sclera non-icteric. NECK: Supple. No nuchal rigidity. FROM. No JVD. RESPIRATORY: Clear to auscultation. CARDIAC: Regular rate, normal rhythm. Extremities warm and well perfused. Pulses equal. ABDOMEN: Soft, non-distended. No tenderness to palpation. No rebound or guarding. No masses. RECTAL: Deferred. MUSCULOSKELETAL: Chest examination reveals no tenderness. The back is symmetrical on inspection without obvious abnormality. There is no CVA tenderness to palpation. No joint edema. LOWER EXTREMITIES: Calves are equal size bilaterally and non-tender. No edema. No discoloration. NEURO: Normal sensorium. No sensory or motor deficits noted. SKIN: No rash or jaundice noted. PSYCH: Denies HI, SI or hallucinations. Medical Decision & Procedures Laboratory Results 05/13/17 22:17 Red Blood Count 4.37, Mean Corpuscular Volume 91.5, Mean Corpuscular Hemoglobin 33.0, Mean Corpuscular Hemoglobin Concent 36.0, Mean Platelet Volume 9.6, Neutrophils (%) (Auto) 64.7, Lymphocytes (%) (Auto) 23.1, Monocytes (%) (Auto) 11.5, Eosinophils (%) (Auto) 0.0, Basophils (%) (Auto) 0.4, Neutrophils # (Auto ) 4.45, Lymphocytes # (Auto) 1.59, Monocytes # (Auto) 0.79, Eosinophils # (Auto ) 0.00, Basophils # (Auto) 0.03 05/13/17 22:17 Test 05/13/17 21:52 05/13/17 22:17 Urine Color YELLOW Urine Appearance CLEAR (CLEAR) Urine pH 7.5 (4.5-7.5) Urine Specific [place] 1.007 (1.000-1.030) Urine Protein NEG (NEG) Urine Glucose (UA) NEG (NEG) Urine Ketones NEG (NEG) Urine Occult Blood 1+ (NEG) Urine Nitrite NEG (NEG) Urine Bilirubin NEG (NEG) Urine Urobilinogen NEG (NEG) Urine Leukocyte Esterase NEG (NEG) Urine WBC (Auto) 0 /hpf (0-5) Urine RBC (Auto) 0-4 /hpf (0-4) Urine Hyaline Casts (Auto) 0 /lpf (0-5) Urine Epithelial Cells (Auto) 0-5 /lpf (0-5) Urine Bacteria (Auto) NEG (NEG) Urine Opiates Screen NEG (NEG) Urine Methadone, Qualitative NEG (NEG) Urine Barbiturates NEG (NEG) Urine Phencyclidine (PCP) Level NEG (NEG) Ur Amphetamine/Methamphetamine NEG (NEG) MDMA (Ecstasy) Screen NEG (NEG) Urine Benzodiazepines Screen NEG (NEG) Urine Cocaine Metabolite NEG (NEG) Urine Marijuana (THC) NEG (NEG) White Blood Count 6.88 K/uL (4.8-10.8) Red Blood Count 4.37 M/uL (4.7-6.1) Hemoglobin 14.4 g/dL (14.0-18.0) Hematocrit 40.0 % (42-52) Mean Corpuscular Volume 91.5 fL (80-100) Mean Corpuscular Hemoglobin 33.0 pg (25-34) Mean Corpuscular Hemoglobin Concent 36.0 g/dl (32-36) Platelet Count 240 K/uL (130-400) Mean Platelet Volume 9.6 fL (7.4-10.4) Neutrophils (%) (Auto) 64.7 % Lymphocytes (%) (Auto) 23.1 % Monocytes (%) (Auto) 11.5 % Eosinophils (%) (Auto) 0.0 % Basophils (%) (Auto) 0.4 % Neutrophils # (Auto) 4.45 K/uL (1.4-6.5) Lymphocytes # (Auto) 1.59 K/uL (1.2-3.4) Monocytes # (Auto) 0.79 K/uL (0.11-0.59) Eosinophils # (Auto) 0.00 K/uL (0-0.5) Basophils # (Auto) 0.03 K/uL (0-0.2) RDW Standard Deviation 42.0 fL (36.4-46.3) RDW Coefficient of Variation 12.5 % (11.5-14.5) Immature Granulocyte % (Auto) 0.3 % Immature Granulocyte # (Auto) 0.02 K/uL (0.00-0.02) Anion Gap 9.0 mmol/L (3-11) Estimated GFR () 115.6 Estimated GFR (Non- 99.7 BUN/Creatinine Ratio 12.1 (10-20) Calcium Level 8.8 mg/dl (8.5-10.1) Total Bilirubin 0.3 mg/dl (0.2-1) Direct Bilirubin mg/dl (0-0.2) Aspartate Amino Transf (AST/SGOT) 21 U/L (15-37) Alanine Aminotransferase (ALT/SGPT) 36 U/L (12-78) Alkaline Phosphatase 66 U/L (45-117) Total Protein 7.5 gm/dl (6.4-8.2) Albumin 3.8 gm/dl (3.4-5.0) Globulin 3.7 gm/dl (2.5-4.0) Albumin/Globulin Ratio 1.0 (0.9-2) Thyroid Stimulating Hormone (TSH) 1.810 uIu/ml (0.300-4.500) Valproic Acid (Depakene) Level 94 mcg/ml (50-100) Ethyl Alcohol mg/dL < 3.0 mg/dl (0-3) Laboratory results reviewed by me ED Course 0: The patient was evaluated in room A6. A complete history and physical exam was performed. 2320: I discussed the patients case with the psychiatric behavioral health case manager. She feels that the patient does not require inpatient treatment, as he has a large amount of outpatient resources and is not actively suicidal, homicidal or anxious. 2330: I reevaluated the patient. Discussed results and discharge instructions: he verbalized understanding and agreement. The patient is ready for discharge. Medical Decision I reviewed the patient's past medical history, medications, and the nursing notes as described above. The patient's presentation and history were concerning for paranoia, schizoaffective disorder, and psychosis. The patient is a 41 y/o gentlemen with a pmhx of schizoaffective d/o who presents to the with acute episode of paranoia per HPI. On arrival the patient is mildly anxious appearing but in NAD, AFVSS. Denies SI/HI, halucinations. Denies drug or etoh use. Labs unremarkable. Medically cleared. Evaluated by psych CM and no concerns for safety at this time and patient has extensive outpatient resources and providers. Patient feeling improved during ED observation. Feels OK to go home. Findings and plan for follow-up reviewed with patient. Patient agreeable and d/c'd per discharge instructions. Medication Reconcilliation Current Medication List: was personally reviewed by me Blood Pressure Screening Patient's blood pressure: Elevated blood pressure Blood pressure disposition: Elevated BP felt to be situational Impression Primary Impression: Paranoia Scribe Attestation The scribe's documentation has been prepared under my direction and personally reviewed by me in its entirety. I confirm that the note above accurately reflects all work, treatment, procedures, and medical decision making performed by me. Departure Information Dispostion Home / Self-Care Referrals Nuvia Liao D.O. (PCP) Patient Instructions Anxiety Disorder, My [facility] Additional Instructions Please follow up with your providers on Sunday for re-evaluation. Otherwise, your exam and lab results did not show signs of an emergent condition at this time. Return to the emergency department for worsening symptoms as described in the accompanying instructions.
[2017-05-13 23:16] LABS: ALBUMIN 3.8 gm/dl (3.4-5.0); ALKALINE PHOSPHATASE 66 U/L (45-117); ALT/SGPT 36 U/L (12-78); AST/SGOT 21 U/L (15-37); BLOOD UREA NITROGEN 12 mg/dl (7-18); CALCIUM 8.8 mg/dl (8.5-10.1); CARBON DIOXIDE 23 mmol/L (21-32); CREATININE 0.95 mg/dl (0.60-1.40); GLUCOSE 101 mg/dl (70-99); SODIUM 136 mmol/L (136-145); TOTAL PROTEIN 7.5 gm/dl (6.4-8.2)
[2017-05-13 23:48] VITALS: BP 125/87; PULSE 95; O2SAT 97
== END 2017-05-13 23:49 | disposition home or self-care (01) ==
LOC: C.EDB 21:37 → C.EDA 23:49
DX: F22 Delusional disorders (principal); F41.9 Anxiety disorder, unspecified; F31.9 Bipolar disorder, unspecified; I10 Essential (primary) hypertension; F25.9 Schizoaffective disorder, unspecified; Z87.891 Personal history of nicotine dependence; Z79.899 Other long term (current) drug therapy

== ENCOUNTER 2018-05-28 16:11 | Inpatient (IN) ==
[2018-05-28 17:18] LABS: Basophils # (auto) 0.02 K/uL (0-0.2); Basophils % (auto) 0.2 %; Hematocrit (blood only) 41.2 % (42-52); Immature Granulocytes # (auto) 0.15 K/uL (0.00-0.02); Immature Granulocytes % (auto) 1.7 %; Lymphocytes # (auto) 1.39 K/uL (1.2-3.4); Lymphocytes % (auto) 15.6 %; Mean Corpuscular Volume 93.8 fL (80-100); Mean Platelet Volume 9.8 fL (7.4-10.4); Monocytes # (auto) 1.97 K/uL (0.11-0.59); Monocytes % (auto) 22.1 %; Neutrophils # (auto) 5.37 K/uL (1.4-6.5); Neutrophils % (auto) 60.4 %; Nucleated RBC # (auto) 0.02 K/uL (0-0); Nucleated RBC % (auto) 0.2 %; Platelet Count 218 K/uL (130-400); RDW Coefficient of Variation 13.1 % (11.5-14.5); RDW Standard Deviation 45.2 fL (36.4-46.3); Red Blood Count 4.39 M/uL (4.7-6.1)
[2018-05-28 17:42] LABS: Albumin Level 3.6 gm/dl (3.4-5.0); BUN Creatinine Ratio 11.6 (10-20); Calcium 8.6 mg/dl (8.5-10.1); Creatinine Clr Calc Pharmacy 104.5 ml/min; Est GFR (African American) 106.6; Potassium 3.7 mmol/L (3.5-5.1)
[2018-05-28 17:52] LABS: Acetaminophen < 2 ug/ml (10-30); Salicylate < 1.7 mg/dl (2.8-20)
[2018-05-28 17:53] LABS: Albumin Globulin Ratio 0.9 (0.9-2); Bilirubin,Total 0.3 mg/dl (0.2-1); Globulin 4.2 gm/dl (2.5-4.0); Total Protein 7.8 gm/dl (6.4-8.2)
[2018-05-28 18:14] LABS: Appearance Urine Clear (Clear); Bacteria Urine Automated Negative (Negative); Bilirubin Urine Negative (Negative); Cast Urine Automated 0 /lpf (0-5); Color Urine Yellow; Epithelial Cell Urine Auto 0-5 /lpf (0-5); Glucose Urine UA Negative (Negative); Ketones Urine Negative (Negative); Leukocyte Esterase Urine Negative (Negative); Nitrite Urine Negative (Negative); Protein Urine Negative (Negative); Specific Gravity Urine 1.008 (1.000-1.030); Urobilinogen Urine Negative (Negative); WBC Urine Automated 0 /hpf (0-5)
[2018-05-28 18:52] LABS: Amphetamines+Metham, Urine Neg (Neg); Barbiturates, Urine Neg (Neg); Benzodiazepine, Urine Neg (Neg); Cocaine, Urine Neg (Neg); MDMA (Ecstacy), Urine Neg (Neg); Methadone, Urine Neg (Neg); Opiate, Urine Neg (Neg); Phencyclidine, Urine Neg (Neg)
--- NOTE | 2018-05-28 20:18 | Emergency Department Note ---
Entered by Carlita Hand acting as a scribe for History of Present Illness General Chief Complaint: Mental Health Evaluation Stated Complaint: MENTAL HEALTH EVAL Source: patient Mode of arrival: ambulatory Limitations: no limitations History of Present Illness Provider complaint: suicidal ideation Onset (ago): hour(s) (last night) Duration: other (episode) History of same: Yes Context: + significant life stressor Associated psychiatric symptoms: no auditory hallucinations and no visual hallucinations Associated symptoms: + denies other symptoms (numbness/tingling) If self harm: + admits thoughts of self harm and + has acted on plan The patient is a 42 year old male who presents to the Emergency Room with complaints of an episode of suicidal ideation that occurred last night. The patient reports that he has "not been taking care of himself" explaining that he has not been eating. He also states that he has been sleeping too much. The patient reports that he cut his left arm with a pocket knife but denies any numbness or tingling. The patient also denies any episodes of suicidal ideation today as well as any recent changes in his medication. He reports that he has been taking his medication as prescribed. The patient denies any auditory or visual hallucinations. The patient reports that his tetanus vaccine is up to date. He states that he does not feel safe at home. Home Medications Home Medications Medication Instructions Recorded Confirmed Type amitriptyline 100 mg PO HS 02/26/18 05/28/18 History cholecalciferol (vitamin D3) 1,000 units PO DAILY 02/26/18 05/28/18 History [Vitamin D3] clonazepam 0.5 mg PO BID 02/26/18 05/28/18 History clozapine 300 mg PO HS 02/26/18 05/28/18 History divalproex 1,500 mg PO HS 02/26/18 05/28/18 History docusate sodium [Doc-Q-Lace] 100 mg PO BID 02/26/18 05/28/18 History ibuprofen 600 mg PO Q6H PRN 02/26/18 05/28/18 History lisinopril 5 mg PO QAM 02/26/18 05/28/18 History propranolol 10 mg PO DAILY 02/26/18 05/28/18 History Allergies Allergy/AdvReac Type Severity Reaction Status Date / Time chlorpromazine Allergy Unknown unknown Verified 05/26/18 15:55 guanfacine Allergy Unknown UNKNOWN Verified 05/26/18 15:55 risperidone Allergy Unknown HAS HAD Verified 05/26/18 15:55 ZYPREXA WITHOUT PROBLEM ziprasidone AdvReac Severe INSIDE Verified 05/26/18 15:55 FEELS LIKE BROKEN GLASS loratadine AdvReac Unknown HIGH ENERGY Verified 05/26/18 15:55 diphenhydramine AdvReac Agitated Verified 05/28/18 21:29 Past Med/Surg History Medical History Acute bronchitis, viral (Resolved) Anxiety (Chronic) Hypertension (Chronic) Schizoaffective disorder (Chronic) Overdose (Resolved) Bipolar disorder (Chronic) Social History Feels Safe at Home: Yes Smoking Status: Never smoker Review of Systems See HPI for pertinent positives & negatives. and A total of 10 systems reviewed and were otherwise negative Physical Exam Vital Signs Vital Signs - 24 hr 05/28/18 16:13 Temperature 36.4 C L Temperature Source Oral Sepsis Recent Fever Within 48 Hours No Sepsis Action Taken by Nursing No Action Required Pulse Rate 100 H Respiratory Rate 16 Respiratory Effort / Characteristics Non-Labored Respiratory Depth Normal Blood Pressure 149/94 H Blood Pressure Mean 112 Pulse Oximetry 97 Oxygen Delivery Method Room Air GENERAL: Awake, alert in no distress HENT: Normocephalic, atraumatic. Oropharynx unremarkable. EYES: Normal conjunctiva. Sclera non-icteric. NECK: Supple. No nuchal rigidity. RESPIRATORY: Clear to auscultation. No wheezes. Normal respiratory effort. CARDIAC: Normal rate. Normal rhythm. Extremities warm and well perfused. GI: Soft, non-distended. No tenderness to palpation. . RECTAL: Deferred. MUSCULOSKELETAL: Chest examination reveals no tenderness. Small left upper extremity superficial laceration with surrounding abrasion in the left AC. NV intact in right upper extremity. LOWER EXTREMITIES: Calves are equal size bilaterally and non-tender. No edema NEURO: Normal sensorium. No sensory or motor deficits noted. No facial droop. SKIN: Warm and dry. No rash or jaundice noted. PSYCH: SI last night but denies current. Denies HI or hallucinations. Flat affect. Course 1625: Past medical records reviewed. The patient was evaluated in room A7, and a complete history and physical examination were performed. 2149: The patient was accepted into [facility]. Administered Medications Medical Decision Making Differential Diagnosis Differential diagnoses considered include mood disorder, infection, hypoglycemia , electrolyte abnormalities, cardiac sources, intracerebral event, toxicologic, neurologic, as well as others. Medical Records Attestation: I reviewed the patient's medical records. Home Medications Current Medication List: was personally reviewed by me Laboratory Data Attestation: I reviewed the patient's lab results. Result diagrams: 05/28/18 16:50 05/28/18 16:50 Lab Results 05/28/18 05/28/18 05/28/18 Range/Units 16:50 16:50 16:50 WBC 8.90 (4.8-10.8) K/uL RBC 4.39 L (4.7-6.1) M/uL Hgb 14.0 (14.0-18.0) g/dL Hct 41.2 L (42-52) % MCV 93.8 (80-100) fL MCH 31.9 (25-34) pg MCHC 34.0 (32-36) g/dL RDW Std Deviation 45.2 (36.4-46.3) fL RDW Coeff of Levy 13.1 (11.5-14.5) % Plt Count 218 (130-400) K/uL MPV 9.8 (7.4-10.4) fL Immature Gran % (Auto) 1.7 % Neut % (Auto) 60.4 % Lymph % (Auto) 15.6 % [place] % (Auto) 22.1 % Eos % (Auto) 0.0 % Baso % (Auto) 0.2 % Immature Gran # (Auto) 0.15 H (0.00-0.02) K/uL Neut # (Auto) 5.37 (1.4-6.5) K/uL Lymph # (Auto) 1.39 (1.2-3.4) K/uL [place] # (Auto) 1.97 H (0.11-0.59) K/uL Eos # (Auto) 0.00 (0-0.5) K/uL Baso # (Auto) 0.02 (0-0.2) K/uL Absolute Nucleated RBC 0.02 H (0-0) K/uL Nucleated RBC % (auto) 0.2 % Sodium 136 (136-145) mmol/L Potassium 3.7 (3.5-5.1) mmol/L Chloride 105 (98-107) mmol/L Carbon Dioxide 28 (21-32) mmol/L Anion Gap 3.0 (3-11) BUN 12 (7-18) mg/dl Creatinine 1.01 (0.6-1.4) mg/dl Est Cr Clr Drug Dosing 104.5 ml/min Est GFR ( Amer) 106.6 Est GFR (Non-Af Amer) 92.0 BUN/Creatinine Ratio 11.6 (10-20) Glucose 67 L (70-99) mg/dl Calcium 8.6 (8.5-10.1) mg/dl Total Bilirubin 0.3 (0.2-1) mg/dl AST 26 (15-37) U/L ALT 54 (12-78) U/L Alkaline Phosphatase 68 (45-117) U/L Total Protein 7.8 (6.4-8.2) gm/dl Albumin 3.6 (3.4-5.0) gm/dl Globulin 4.2 H (2.5-4.0) gm/dl Albumin/Globulin Ratio 0.9 (0.9-2) TSH 2.680 (0.300-4.500) uIu/ml Urine Color Urine Appearance (Clear) Urine pH (4.5-7.5) Ur Specific [place] (1.000-1.030) Urine Protein (Negative) Urine Glucose (UA) (Negative) Urine Ketones (Negative) Urine Blood (Negative) Urine Nitrite (Negative) Urine Bilirubin (Negative) Urine Urobilinogen (Negative) Ur Leukocyte Esterase (Negative) Urine WBC (Auto) (0-5) /hpf Urine RBC (Auto) (0-4) /hpf U Hyaline Cast (Auto) (0-5) /lpf U Epithel Cells (Auto) (0-5) /lpf Urine Bacteria (Auto) (Negative) Salicylates < 1.7 L (2.8-20) mg/dl Urine Opiates Screen (Neg) Ur Methadone, Qual (Neg) Acetaminophen < 2 L (10-30) ug/ml Urine Barbiturates (Neg) Valproic Acid (50-100) mcg/ml Ur Phencyclidine (PCP) (Neg) U Amphetamin/Meth Scrn (Neg) MDMA (Ecstasy) Screen (Neg) U Benzodiazepines Scrn (Neg) Ur Cocaine Metabolite (Neg) U Marijuana (THC) Screen (Neg) Ethyl Alcohol mg/dL (0-3) mg/dl 05/28/18 05/28/18 05/28/18 Range/Units 16:50 16:50 17:25 WBC (4.8-10.8) K/uL RBC (4.7-6.1) M/uL Hgb (14.0-18.0) g/dL Hct (42-52) % MCV (80-100) fL MCH (25-34) pg MCHC (32-36) g/dL RDW Std Deviation (36.4-46.3) fL RDW Coeff of Levy (11.5-14.5) % Plt Count (130-400) K/uL MPV (7.4-10.4) fL Immature Gran % (Auto) % Neut % (Auto) % Lymph % (Auto) % [place] % (Auto) % Eos % (Auto) % Baso % (Auto) % Immature Gran # (Auto) (0.00-0.02) K/uL Neut # (Auto) (1.4-6.5) K/uL Lymph # (Auto) (1.2-3.4) K/uL [place] # (Auto) (0.11-0.59) K/uL Eos # (Auto) (0-0.5) K/uL Baso # (Auto) (0-0.2) K/uL Absolute Nucleated RBC (0-0) K/uL Nucleated RBC % (auto) % Sodium (136-145) mmol/L Potassium (3.5-5.1) mmol/L Chloride (98-107) mmol/L Carbon Dioxide (21-32) mmol/L Anion Gap (3-11) BUN (7-18) mg/dl Creatinine (0.6-1.4) mg/dl Est Cr Clr Drug Dosing ml/min Est GFR ( Amer) Est GFR (Non-Af Amer) BUN/Creatinine Ratio (10-20) Glucose (70-99) mg/dl Calcium (8.5-10.1) mg/dl Total Bilirubin (0.2-1) mg/dl AST (15-37) U/L ALT (12-78) U/L Alkaline Phosphatase (45-117) U/L Total Protein (6.4-8.2) gm/dl Albumin (3.4-5.0) gm/dl Globulin (2.5-4.0) gm/dl Albumin/Globulin Ratio (0.9-2) TSH (0.300-4.500) uIu/ml Urine Color Urine Appearance (Clear) Urine pH (4.5-7.5) Ur Specific [place] (1.000-1.030) Urine Protein (Negative) Urine Glucose (UA) (Negative) Urine Ketones (Negative) Urine Blood (Negative) Urine Nitrite (Negative) Urine Bilirubin (Negative) Urine Urobilinogen (Negative) Ur Leukocyte Esterase (Negative) Urine WBC (Auto) (0-5) /hpf Urine RBC (Auto) (0-4) /hpf U Hyaline Cast (Auto) (0-5) /lpf U Epithel Cells (Auto) (0-5) /lpf Urine Bacteria (Auto) (Negative) Salicylates (2.8-20) mg/dl Urine Opiates Screen Neg (Neg) Ur Methadone, Qual Neg (Neg) Acetaminophen (10-30) ug/ml Urine Barbiturates Neg (Neg) Valproic Acid 68 (50-100) mcg/ml Ur Phencyclidine (PCP) Neg (Neg) U Amphetamin/Meth Scrn Neg (Neg) MDMA (Ecstasy) Screen Neg (Neg) U Benzodiazepines Scrn Neg (Neg) Ur Cocaine Metabolite Neg (Neg) U Marijuana (THC) Screen Neg (Neg) Ethyl Alcohol mg/dL < 3.0 (0-3) mg/dl 05/28/18 Range/Units 17:25 WBC (4.8-10.8) K/uL RBC (4.7-6.1) M/uL Hgb (14.0-18.0) g/dL Hct (42-52) % MCV (80-100) fL MCH (25-34) pg MCHC (32-36) g/dL RDW Std Deviation (36.4-46.3) fL RDW Coeff of Levy (11.5-14.5) % Plt Count (130-400) K/uL MPV (7.4-10.4) fL Immature Gran % (Auto) % Neut % (Auto) % Lymph % (Auto) % [place] % (Auto) % Eos % (Auto) % Baso % (Auto) % Immature Gran # (Auto) (0.00-0.02) K/uL Neut # (Auto) (1.4-6.5) K/uL Lymph # (Auto) (1.2-3.4) K/uL [place] # (Auto) (0.11-0.59) K/uL Eos # (Auto) (0-0.5) K/uL Baso # (Auto) (0-0.2) K/uL Absolute Nucleated RBC (0-0) K/uL Nucleated RBC % (auto) % Sodium (136-145) mmol/L Potassium (3.5-5.1) mmol/L Chloride (98-107) mmol/L Carbon Dioxide (21-32) mmol/L Anion Gap (3-11) BUN (7-18) mg/dl Creatinine (0.6-1.4) mg/dl Est Cr Clr Drug Dosing ml/min Est GFR ( Amer) Est GFR (Non-Af Amer) BUN/Creatinine Ratio (10-20) Glucose (70-99) mg/dl Calcium (8.5-10.1) mg/dl Total Bilirubin (0.2-1) mg/dl AST (15-37) U/L ALT (12-78) U/L Alkaline Phosphatase (45-117) U/L Total Protein (6.4-8.2) gm/dl Albumin (3.4-5.0) gm/dl Globulin (2.5-4.0) gm/dl Albumin/Globulin Ratio (0.9-2) TSH (0.300-4.500) uIu/ml Urine Color Yellow Urine Appearance Clear (Clear) Urine pH 7.0 (4.5-7.5) Ur Specific [place] 1.008 (1.000-1.030) Urine Protein Negative (Negative) Urine Glucose (UA) Negative (Negative) Urine Ketones Negative (Negative) Urine Blood 2+ H (Negative) Urine Nitrite Negative (Negative) Urine Bilirubin Negative (Negative) Urine Urobilinogen Negative (Negative) Ur Leukocyte Esterase Negative (Negative) Urine WBC (Auto) 0 (0-5) /hpf Urine RBC (Auto) 5-10 H (0-4) /hpf U Hyaline Cast (Auto) 0 (0-5) /lpf U Epithel Cells (Auto) 0-5 (0-5) /lpf Urine Bacteria (Auto) Negative (Negative) Salicylates (2.8-20) mg/dl Urine Opiates Screen (Neg) Ur Methadone, Qual (Neg) Acetaminophen (10-30) ug/ml Urine Barbiturates (Neg) Valproic Acid (50-100) mcg/ml Ur Phencyclidine (PCP) (Neg) U Amphetamin/Meth Scrn (Neg) MDMA (Ecstasy) Screen (Neg) U Benzodiazepines Scrn (Neg) Ur Cocaine Metabolite (Neg) U Marijuana (THC) Screen (Neg) Ethyl Alcohol mg/dL (0-3) mg/dl Blood Pressure Blood Pressure Findings: Elevated blood pressure Blood Pressure Disposition: further management by hospitalist DARIO Narrative 42-year-old gentleman with underlying history of acute affective disease on medications reporting thoughts of harming himself last night and did attempt to cut his left antecubital fossa. Small wound here. States his tetanus is in the last 5-10 years. Fairly superficial doubt underlying tendon or vascular injury of significance. No gross evidence of infection at this time. Cleaned and bandaged. Basic psychiatric clearance was completed. Here with his family service caseworker. Psychiatric family service caseworker at our facility also evaluated patient. Requesting inpatient treatments and I believe is in his best interest. Medically cleared for this at this time for inpatient psychiatric care they believe he needs. Patient was voluntarily and placed referrals were made. Admitted to [facility] here for further care. Impression & Plan Suicidal ideation, Mood disorder Discharge Plan Visit Data Chief Complaint: Mental Health Evaluation Stated Complaint: MENTAL HEALTH EVAL ED Provider: Jesus Avery Discharge Problem: Suicidal ideation, Mood disorder Patient Disposition: Transfer Behavioral Health Fac Discharge Instructions Interventions: ED Discharge Assessment Last Done: 05/28/18 22:05 The lisa's documentation has been prepared under my direction and personally reviewed by me in its entirety. I confirm that the note above accurately reflects all work, treatment, procedures, and medical decision making performed by me.
[2018-05-28] MEDS ORDERED: MAGNESIUM HYDROXIDE SUSP 30 ML UDC PO PRN (21:22)
[2018-05-28] MEDS ORDERED: SODIUM CHLORIDE 0.65% NA SOLN 45 ML (OCEAN) PRN (21:22)
[2018-05-28] MEDS ORDERED: BISMUTH SUBSALICYLATE PER ML OMNICELL CHARGE PO PRN (21:22)
[2018-05-28] MEDS ORDERED: ALUMINUM/MAGNESIUM SUSP 30 ML UDC PO PRN (21:22)
[2018-05-28] MEDS: clonazePAM 0.5 MG TAB PO SCH (23:47)
[2018-05-28] MEDS: cloZAPine 100 MG TAB PO SCH (23:47)
[2018-05-28] MEDS: DIVALPROEX EXTENDED RELEASE 500 MG TAB PO SCH (23:48)
[2018-05-28] MEDS: AMITRIPTYLINE HCL 100 MG TAB PO SCH (23:50)
[2018-05-28] MEDS: DOCUSATE SODIUM 100 MG CAP PO SCH (23:50)
[2018-05-29] MEDS: COUGH DROP (SUGAR FREE) LOZ 24 LOZ/1 BOX BUCCAL PRN (04:03)
[2018-05-29] MEDS: LISINOPRIL 5 MG TAB PO SCH (08:11)
[2018-05-29] MEDS: CHOLECALCIFEROL 1,000 UNITS TAB PO SCH (08:11)
[2018-05-29] MEDS: DOCUSATE SODIUM 100 MG CAP PO SCH ×2 (08:11→21:04)
--- NOTE | 2018-05-29 08:29 | History & Physical ---
Date of Service May 29, 2018 Impression / Recommendations (1) Schizoaffective disorder: 05/29 -admitted voluntarily to the [facility] for safety. -Suicide checks. -Encourage group attendance and participation. Work on healthy coping skills and a discharge safety plan. -Family meeting. -Coordinate care with outpatient providers: manager process excellence was present on admission, and we will request records from [facility]. -Resume home doses of psychotropics (clozapine, amitriptyline, divalproex, clonazepam, and propanolol), as patient reports he was stable when taking them regularly, but has missed several days recently due to URI. -Check fasting lipid profile and glucose for monitoring on an atypical antipsychotic, as the last one in our system was from July 2016. -CBC with differential checked on admission; ANC 5.37. Present on Admission?: Yes (2) Acute bronchitis, viral: 05/29 -continue benzonatate 100 mg 3 times daily as needed cough, offer throat lozenges as needed, supportive care. -Reschedule follow-up appointment with PCP, Dr. Nuvia Liao, and follow-up with her after discharge. Present on Admission?: Yes (3) Hypertension: 05/29 -continue home dose of lisinopril and monitor blood pressure - initially elevated in the ER, but now within normal limits. Present on Admission?: Yes (4) Hyperlipidemia: 05/29 -clarify home dose of simvastatin and continue here. Present on Admission?: Yes (5) Hematuria: 05/29 -2+ blood (5-10 RBC/hpf) in urinalysis on admission, and also had hematuria on his last 2 episodes of care in January and April 2017. The patient denies dysuria, flank pain, fever, vigorous exercise, and a history of nephrolithiasis or BPH. BUN, creatinine, and GFR are within normal limits, and he has been drinking normal amounts of fluids. He will need to follow-up with his PCP, Dr. Liao. Present on Admission?: Yes Inventory Assets Strengths: Stable housing, extensive outpatient services Needs: Return to self-care routine, treatment of medical condition, interventions for safety Risk Factors Assessment Male: Yes : No Do You Have Access To A Gun?: No Health Problems: Yes Mental Health Diagnoses: Yes Substance Use Disorders: No Previous Attempt: Yes Family History of Suicide: No Previous Psychiatric Hospitalization: Yes Smoker: No Protective Factors Assessment : No Responsible for Young Children: No Employed: No (Attempted to seek employment at [employer]) Stable Relationships: Yes Supportive Family: No Good Rapport with Provider: Yes Psychiatric History Identifying Data ROGER SCHMIDT is a 42-year-old M who currently lives in [place], has a history of schizoaffective disorder, and was admitted on 05/28/18 21:22 on a 201 voluntary commitment for suicidal ideation and a suicide attempt by cutting his arm. Chief Complaint "So last week I missed yoga club, and wasn't feeling that great...". History of Present Illness The patient is known to us from multiple previous hospitalizations, most recently on the [facility] in July 2016. He presented to the emergency room 2018 reporting suicidal ideation and a suicide attempt by cutting his antecubital area with a pocket knife the day prior. He endorsed worsening mood , increased sleep, decreased appetite, and poor self-care, as he was not showering or changing his clothes regularly. He did not feel safe at home, and agreed to voluntary admission. He said he had missed several days of his medications due to a respiratory illness. He had been seen in the ER 05/26/2018 for cough, had blood work, EKG, troponin, influenza, and chest x-ray, which were unremarkable for sinus tachycardia. He was diagnosed with viral bronchitis , and prescribed benzonatate, oral prednisone, and albuterol inhaler, and instructed to follow-up with his PCP, Dr. Liao (appointment is today). On my assessment, he reports mood has been worsening since 05/24/18, in the context of URI symptoms and "not feeling real well." He missed some of his normal activities (yoga), and when cough worsened, came to the ER 3 days ago. He did not take the oral prednisone, as he feared it would worsen his mood, but did use albuterol several times and thinks that it worsened his mood. He does think his cough is getting better. He says he "tried to off myself" Saturday 05/27 by cutting his arm with a pocket knife, but felt it wasn't going to work, so stopped. When he told his behavioral health case manager the following day, he recommended he come to the ER. He describes acute onset of SI after returning from the ER visit Friday 05/26, stating mood "really nosedived." Denies any other triggers/ acute stressors, but felt he had "unrealistic expectations of myself" as far as being able to keep up with his routine while feeling sick - "I do everything like clockwork, and if I'm unable to keep up with it, it's a trainwreck." Notes he usually sticks to a regular schedule, attends all appointments and takes all meds as directed, and felt badly about himself when he was unable to maintain his routine. He reports poor appetite with 10 lbs weight loss in 1 month, not preparing food for himself, doing laundry, or bathing. He denies recent hallucinations, paranoia and delusions, but notes he has "loose associations of thought" at times where his thoughts get more confused, he has trouble identifying people (will see someone on the street and think it is a friend of his, but then realize he does not know the person). He denies recent manic episodes, but reports elevated mood a week ago for several hours while dancing to live music at a local bar. He does not feel safe at home currently, and says he didn't follow his safety plan (contact his friends, outpatient providers, call crisis) in part because he was worried that he might "lose my privileges, I just moved into independent living in July." He has been on a stable med regimen for months-years. Past Psychiatric History Previous Psych History: Diagnosed with schizoaffective disorder bipolar type. Outpatient Services: [facility] for med management, [facility], and case management through [facility] (Titi Castro). Was seeing therapist at [facility], but says she "graduated me." Previous Psych Admissions: Many hospitalizations starting at age 19. [facility] hospitalization in [place] from [id number]. Multiple inpatient admissions in the past at (07/2016, 10/2014, 03/2011, 06/2007, 12/2006, 03/2006, 06/2005, 12/2003 , 03/2002, 05/2000, 02/1999), as well as [facility], and [facility]. Do You Have Access To A Gun?: No History of Previous Suicide Attempt: Yes Describe Attempts in the Past: Reports several past attempts but cutting self and one attempt by OD Past Medication Trials: Include but not limited to: Chlorpromazine -rage Perphenazine -ineffective Aripiprazole -strange dreams Risperidone -removed clothing Ziprasidone -2 short acting Hydroxyzine -ineffective Additional Notes: Suicide attempt by overdose on 30 clonazepam and cutting arm in 2009. Per records, also attempted suicide when hospitalized at . Past Head Trauma/Neuro History History of Concussion/Seizure: No Allergies Allergy/AdvReac Type Severity Reaction Status Date / Time chlorpromazine Allergy Unknown unknown Verified 05/26/18 15:55 guanfacine Allergy Unknown UNKNOWN Verified 05/26/18 15:55 risperidone Allergy Unknown HAS HAD Verified 05/26/18 15:55 ZYPREXA WITHOUT PROBLEM ziprasidone AdvReac Severe INSIDE Verified 05/26/18 15:55 FEELS LIKE BROKEN GLASS loratadine AdvReac Unknown HIGH ENERGY Verified 05/26/18 15:55 diphenhydramine AdvReac Agitated Verified 05/28/18 21:29 Home Medications Home Medications Medication Instructions Recorded Confirmed Type amitriptyline 100 mg PO HS 02/26/18 05/28/18 History cholecalciferol (vitamin D3) 1,000 units PO DAILY 02/26/18 05/28/18 History [Vitamin D3] clonazepam 0.5 mg PO BID 02/26/18 05/28/18 History clozapine 300 mg PO HS 02/26/18 05/28/18 History divalproex 1,500 mg PO HS 02/26/18 05/28/18 History docusate sodium [Doc-Q-Lace] 100 mg PO BID 02/26/18 05/28/18 History ibuprofen 600 mg PO Q6H PRN 02/26/18 05/28/18 History lisinopril 5 mg PO QAM 02/26/18 05/28/18 History propranolol 10 mg PO DAILY 02/26/18 05/28/18 History simvastatin PO HS 05/29/18 History Family History Family History of: Depression, Anxiety, Psychosis/ThoughtDisorder, Alcoholism/ Drug Abuse (Father with alcohol abuse) and Bipolar (Mother) Alcohol History Hx of Alcohol Use Over the Past 12 Months: No AUDIT Total Score: 0 Smoking Use Have You Smoked or Used Tobacco Products in the Last 30 Days: No Smoking Status: Never smoker Substance History Hx of Prescription Med Misuse Over the Past 12 Months: No Hx of Over the Counter Med Misuse Over the Past 12 Months: No Hx of Inhalent Misuse Over the Past 12 Months: No Hx of Organic Substance Use Over the Past 12 Months: No Hx of Illegal Substances/Street Drug Use Over Past 12 Months: No Problems as a Result of Past Substance Use: None Identified Personal History Living Arrangements: [facility] Living Arrangements Comments: [place] Born In[place] Childhood: Raised in [place], [place]. Reports developmental milestones were on time. Only child, parents . Highest Grade Completed: High School Graduate Employment Status: Unemployed Marital Status: Single Number Of Children: 0 Beliefs That Will Affect Care: None Hx Legal Problems: No Hx Traumatic Life Events: No Additional Comments: Father lives in [place] with his 3rd , strained relationship in the past, but recently has been talking to him every few weeks. 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 Reports "poor" relationship with mother. Has a couple supportive friends that live locally. Patient History Medical History Hyperlipidemia Acute bronchitis, viral (Resolved) Anxiety (Chronic) Hypertension (Chronic) Schizoaffective disorder (Chronic) Overdose (Resolved) Bipolar disorder (Chronic) Social History Feels Safe at Home: Yes Smoking Status: Never smoker Beliefs That Will Affect Care: None Preferred Language: Frisian Communication Ability: Effective Sales Marketing Coordinator Required: No Review of Systems All systems reviewed & are unremarkable except as noted in HPI & below denies dysuria, fever, flank pain Physical Exam Psychiatric Orientation: alert, oriented x 3 and cooperative Apperance: appropriately dressed and + disheveled short, scraggly starkey Eye Contact: good eye contact Motor Behavior: steady gait and station and no abnormal motor movements Speech slightly slowed, normal volume and tone. Affect: + blunted affect Slightly disorganized, difficulty giving an account of events prior to admission. Thought Content: reality based without delusions Suicidal Thoughts: + reports suicidal thoughts Homicidal Thoughts: denies homicidal thoughts Hallucinations: no auditory hallucinations and no visual hallucinations Cognition: attention grossly intact and language grossly intact Some difficulty relaying events of the past week Estimated Intelligence: consistent with education level Insight: good insight Judgement: + fair judgement Superficial cut on left forearm, antecubital area - slightly red, no drainage, exudate, swelling Vital Signs (Past 24 Hours) Last Vital Signs Temp 37.4 C 05/29/18 07:10 Pulse 101 H 05/29/18 07:10 Resp 16 05/29/18 07:10 BP 123/84 05/29/18 07:10 Pulse Ox 97 05/28/18 16:13 A physical exam was performed in the ER prior to admission to the unit by Dr. Jesus Avery. I accept that physical as correct/medical clearance for the inpatient physical exam. Results & Data Laboratory Results Laboratory Results - last 24 hr 05/28/18 05/28/18 05/28/18 16:50 16:50 16:50 WBC 8.90 RBC 4.39 L Hgb 14.0 Hct 41.2 L MCV 93.8 MCH 31.9 MCHC 34.0 RDW Std Deviation 45.2 RDW Coeff of Levy 13.1 Plt Count 218 MPV 9.8 Immature Gran % (Auto) 1.7 Neut % (Auto) 60.4 Lymph % (Auto) 15.6 [place] % (Auto) 22.1 Eos % (Auto) 0.0 Baso % (Auto) 0.2 Immature Gran # (Auto) 0.15 H Neut # (Auto) 5.37 Lymph # (Auto) 1.39 [place] # (Auto) 1.97 H Eos # (Auto) 0.00 Baso # (Auto) 0.02 Absolute Nucleated RBC 0.02 H Nucleated RBC % (auto) 0.2 Sodium 136 Potassium 3.7 Chloride 105 Carbon Dioxide 28 Anion Gap 3.0 BUN 12 Creatinine 1.01 Est Cr Clr Drug Dosing 104.5 Est GFR ( Amer) 106.6 Est GFR (Non-Af Amer) 92.0 BUN/Creatinine Ratio 11.6 Glucose 67 L Calcium 8.6 Total Bilirubin 0.3 AST 26 ALT 54 Alkaline Phosphatase 68 Total Protein 7.8 Albumin 3.6 Globulin 4.2 H Albumin/Globulin Ratio 0.9 TSH 2.680 Urine Color Urine Appearance Urine pH Ur Specific [place] Urine Protein Urine Glucose (UA) Urine Ketones Urine Blood Urine Nitrite Urine Bilirubin Urine Urobilinogen Ur Leukocyte Esterase Urine WBC (Auto) Urine RBC (Auto) U Hyaline Cast (Auto) U Epithel Cells (Auto) Urine Bacteria (Auto) Salicylates < 1.7 L Urine Opiates Screen Ur Methadone, Qual Acetaminophen < 2 L Urine Barbiturates Valproic Acid Ur Phencyclidine (PCP) U Amphetamin/Meth Scrn MDMA (Ecstasy) Screen U Benzodiazepines Scrn Ur Cocaine Metabolite U Marijuana (THC) Screen Ethyl Alcohol mg/dL 05/28/18 05/28/18 05/28/18 16:50 16:50 17:25 WBC RBC Hgb Hct MCV MCH MCHC RDW Std Deviation RDW Coeff of Levy Plt Count MPV Immature Gran % (Auto) Neut % (Auto) Lymph % (Auto) [place] % (Auto) Eos % (Auto) Baso % (Auto) Immature Gran # (Auto) Neut # (Auto) Lymph # (Auto) [place] # (Auto) Eos # (Auto) Baso # (Auto) Absolute Nucleated RBC Nucleated RBC % (auto) Sodium Potassium Chloride Carbon Dioxide Anion Gap BUN Creatinine Est Cr Clr Drug Dosing Est GFR ( Amer) Est GFR (Non-Af Amer) BUN/Creatinine Ratio Glucose Calcium Total Bilirubin AST ALT Alkaline Phosphatase Total Protein Albumin Globulin Albumin/Globulin Ratio TSH Urine Color Urine Appearance Urine pH Ur Specific [place] Urine Protein Urine Glucose (UA) Urine Ketones Urine Blood Urine Nitrite Urine Bilirubin Urine Urobilinogen Ur Leukocyte Esterase Urine WBC (Auto) Urine RBC (Auto) U Hyaline Cast (Auto) U Epithel Cells (Auto) Urine Bacteria (Auto) Salicylates Urine Opiates Screen Neg Ur Methadone, Qual Neg Acetaminophen Urine Barbiturates Neg Valproic Acid 68 Ur Phencyclidine (PCP) Neg U Amphetamin/Meth Scrn Neg MDMA (Ecstasy) Screen Neg U Benzodiazepines Scrn Neg Ur Cocaine Metabolite Neg U Marijuana (THC) Screen Neg Ethyl Alcohol mg/dL < 3.0 05/28/18 17:25 WBC RBC Hgb Hct MCV MCH MCHC RDW Std Deviation RDW Coeff of Elvy Plt Count MPV Immature Gran % (Auto) Neut % (Auto) Lymph % (Auto) [place] % (Auto) Eos % (Auto) Baso % (Auto) Immature Gran # (Auto) Neut # (Auto) Lymph # (Auto) [place] # (Auto) Eos # (Auto) Baso # (Auto) Absolute Nucleated RBC Nucleated RBC % (auto) Sodium Potassium Chloride Carbon Dioxide Anion Gap BUN Creatinine Est Cr Clr Drug Dosing Est GFR ( Amer) Est GFR (Non-Af Amer) BUN/Creatinine Ratio Glucose Calcium Total Bilirubin AST ALT Alkaline Phosphatase Total Protein Albumin Globulin Albumin/Globulin Ratio TSH Urine Color Yellow Urine Appearance Clear Urine pH 7.0 Ur Specific [place] 1.008 Urine Protein Negative Urine Glucose (UA) Negative Urine Ketones Negative Urine Blood 2+ H Urine Nitrite Negative Urine Bilirubin Negative Urine Urobilinogen Negative Ur Leukocyte Esterase Negative Urine WBC (Auto) 0 Urine RBC (Auto) 5-10 H U Hyaline Cast (Auto) 0 U Epithel Cells (Auto) 0-5 Urine Bacteria (Auto) Negative Salicylates Urine Opiates Screen Ur Methadone, Qual Acetaminophen Urine Barbiturates Valproic Acid Ur Phencyclidine (PCP) U Amphetamin/Meth Scrn MDMA (Ecstasy) Screen U Benzodiazepines Scrn Ur Cocaine Metabolite U Marijuana (THC) Screen Ethyl Alcohol mg/dL Current Inpatient Medications Current Inpatient Medications: Current Inpatient Medications Acetaminophen (Tylenol) 650 mg PO Q4H PRN PRN Reason: Headache or Minor Fever Stop: 06/27/18 21:21 Al Hydrox/Mg Hydrox/Simethicone (Maalox) 30 ml PO Q4H PRN PRN Reason: GI Upset Stop: 06/27/18 21:21 Amitriptyline HCl (Elavil) 100 mg PO HS CALI Stop: 06/27/18 22:59 Last Admin: 05/28/18 23:50 Dose: 100 mg Bismuth Subsalicylate (Kaopectate) 15 ml PO PRN PRN PRN Reason: Loose Stool Stop: 06/27/18 21:21 Clonazepam (Klonopin) 0.5 mg PO 1200 CALI Stop: 06/28/18 11:59 Clonazepam (Klonopin) 0.5 mg PO HS CALI Stop: 06/27/18 23:29 Last Admin: 05/28/18 23:47 Dose: 0.5 mg Clozapine (Clozapine) 300 mg PO HS CALI Stop: 06/27/18 22:59 Last Admin: 05/28/18 23:47 Dose: 300 mg Divalproex Sodium (Depakote Extended Release) 1,500 mg PO HS CALI Stop: 06/27/18 22:59 Last Admin: 05/28/18 23:48 Dose: 1,500 mg Docusate Sodium (Colace) 100 mg PO BID CALI Stop: 06/28/18 08:59 Last Admin: 05/29/18 08:11 Dose: 100 mg Hydroxyzine HCl (Vistaril) 50 mg PO HSZ PRN PRN Reason: Insomnia Stop: 06/27/18 21:21 Hydroxyzine HCl (Vistaril) 25 mg PO Q4H PRN PRN Reason: Anxiety Stop: 06/27/18 21:21 Lisinopril (Zestril) 5 mg PO QAM [facility] Stop: 06/28/18 08:59 Last Admin: 05/29/18 08:11 Dose: 5 mg Magnesium Hydroxide (Milk Of Magnesia) 30 ml PO DAILY PRN PRN Reason: Heartburn Stop: 06/27/18 21:21 Menthol (Nice) 1 yazmin BUCCAL PRN PRN PRN Reason: Sore Throat Stop: 06/28/18 01:56 Last Admin: 05/29/18 04:03 Dose: 1 yazmin Propranolol HCl (Inderal) 10 mg PO 1200 [facility] Stop: 06/28/18 11:59 Sodium Chloride (Ford Nasal) 1 - 2 sprays NA PRN PRN PRN Reason: Nasal Dryness/Congestion Stop: 06/27/18 21:21 Vitamin D (Vitamin D3) 1,000 units PO QAM [facility] Stop: 06/28/18 08:59 Last Admin: 05/29/18 08:11 Dose: 1,000 units CPT Code CPT Code Initial Hospital Care: 29532
[2018-05-29] MEDS: ACETAMINOPHEN 325 MG TAB PO PRN (08:33)
[2018-05-29] MEDS: BENZONATATE 100 MG CAPSULE PO PRN ×2 (10:16→21:02)
[2018-05-29 10:35] LABS: Basophils # (auto) 0.03 K/uL (0-0.2); Basophils % (auto) 0.4 %; Hematocrit (blood only) 42.4 % (42-52); Hemoglobin 14.7 g/dL (14.0-18.0); Immature Granulocytes # (auto) 0.14 K/uL (0.00-0.02); Immature Granulocytes % (auto) 1.8 %; Lymphocytes # (auto) 1.85 K/uL (1.2-3.4); Lymphocytes % (auto) 23.9 %; Mean Corpuscular Hgb Conc 34.7 g/dL (32-36); Mean Platelet Volume 9.5 fL (7.4-10.4); Monocytes # (auto) 2.32 K/uL (0.11-0.59); Neutrophils # (auto) 3.39 K/uL (1.4-6.5); Neutrophils % (auto) 43.9 %; Platelet Count 208 K/uL (130-400); RDW Standard Deviation 43.8 fL (36.4-46.3); Red Blood Count 4.56 M/uL (4.7-6.1); White Blood Count 7.73 K/uL (4.8-10.8)
[2018-05-29] MEDS: clonazePAM 0.5 MG TAB PO SCH ×2 (12:02→21:02)
[2018-05-29] MEDS: PROPRANOLOL HCL 10 MG TAB PO SCH (12:02)
[2018-05-29] MEDS: AMITRIPTYLINE HCL 100 MG TAB PO SCH (21:03)
[2018-05-29] MEDS: cloZAPine 100 MG TAB PO SCH (21:04)
[2018-05-29] MEDS: DIVALPROEX EXTENDED RELEASE 500 MG TAB PO SCH (21:04)
[2018-05-30] MEDS: BENZONATATE 100 MG CAPSULE PO PRN ×4 (05:16→21:23)
[2018-05-30] MEDS: ACETAMINOPHEN 325 MG TAB PO PRN (05:20)
[2018-05-30 07:50] LABS: Glucose Fasting 114 mg/dl (70-99)
[2018-05-30 07:57] LABS: Chol HDL Ratio 4; Cholesterol 155 mg/dl (0-200); HDL Cholesterol 36 mg/dl; LDL Cholesterol Calculated 83 mg/dl; Triglycerides 179 mg/dl (0-150); VLDL Cholesterol 36 mg/dl
[2018-05-30] MEDS: LISINOPRIL 5 MG TAB PO SCH (08:48)
[2018-05-30] MEDS: CHOLECALCIFEROL 1,000 UNITS TAB PO SCH (08:48)
[2018-05-30] MEDS: DOCUSATE SODIUM 100 MG CAP PO SCH ×2 (08:48→21:19)
--- NOTE | 2018-05-30 10:06 | Psychiatric Progress Note ---
Date of Service May 30, 2018 Impression / Recommendations (1) Schizoaffective disorder: 05/29 -admitted voluntarily to the [facility] for safety. -Suicide checks. -Encourage group attendance and participation. Work on healthy coping skills and a discharge safety plan. -Family meeting. -Coordinate care with outpatient providers: district manager primary care sales was present on admission, and we will request records from [facility]. -Resume home doses of psychotropics (clozapine, amitriptyline, divalproex, clonazepam, and propanolol), as patient reports he was stable when taking them regularly, but has missed several days recently due to URI. -Check fasting lipid profile and glucose for monitoring on an atypical antipsychotic, as the last one in our system was from July 2016. -CBC with differential checked on admission; ANC 5.37. 05/30 -met with rifle case repairer yesterday, and agreed to increase outpatient services ([facility], and mobile psych rehab). -Continue to work on outpatient safety plan and identifying barriers to following through on it. -Reviewed results of labs with patient: Fasting glucose elevated at 114, and lipid profile notable for elevated triglycerides 179. (2) Acute bronchitis, viral: 05/29 -continue benzonatate 100 mg 3 times daily as needed cough, offer throat lozenges as needed, supportive care. -Reschedule follow-up appointment with PCP, Dr. Nuvia Liao, and follow-up with her after discharge. (3) Hypertension: 05/29 -continue home dose of lisinopril and monitor blood pressure - initially elevated in the ER, but now within normal limits. (4) Hyperlipidemia: 05/29 -clarify home dose of simvastatin and continue here. (5) Hematuria: 05/29 -2+ blood (5-10 RBC/hpf) in urinalysis on admission, and also had hematuria on his last 2 episodes of care in January and April 2017. The patient denies dysuria, flank pain, fever, vigorous exercise, and a history of nephrolithiasis or BPH. BUN, creatinine, and GFR are within normal limits, and he has been drinking normal amounts of fluids. He will need to follow-up with his PCP, Dr. Liao. Inventory Assets Strengths: Stable housing, extensive outpatient services Needs: Return to self-care routine, treatment of medical condition, interventions for safety Risk Factors Assessment Male: Yes : No Do You Have Access To A Gun?: No Health Problems: Yes Mental Health Diagnoses: Yes Substance Use Disorders: No Previous Attempt: Yes Family History of Suicide: No Previous Psychiatric Hospitalization: Yes Smoker: No Protective Factors Assessment : No Responsible for Young Children: No Employed: No (Attempted to seek employment at [employer]) Stable Relationships: Yes Supportive Family: No Good Rapport with Provider: Yes Interval History Identifying Information ROGER SCHMIDT is a 42-year-old M who currently lives in [place], has a history of schizoaffective disorder, and was admitted on 05/28/18 21:22 on a 201 voluntary commitment for suicidal ideation and a suicide attempt by cutting his arm. Chief Complaint "A little better". Review of Systems Notes cough continues but improving, denies chest pain, sore throat Sleep Information Total Hours of Sleep: 7.5 Sleep Comments: awakened from coughing. he came out to the nurses station to request and receive a prn dose of tessalon perels at 0516. Meal Information Percent Meal Consumed - Breakfast: 90 Percent Meal Consumed - Lunch: 100 Percent Meal Consumed - Dinner: 100 Subjective Subjective Patient was seen & assessed and interval progress reviewed. Staff report he has been cooperative with treatment, met with his rifle case repairer yesterday who reported the patient had been functioning well until he got sick and used an inhaler, and they discussed some adjustments to his outpatient supports, including resuming individual therapy at [facility] and decreasing his on site G psych rehab days while adding mobile psych rehab. He rested in his room in the evening, reporting he had not slept well the night before and was tired. He continues to have a cough for which he has been using Tessalon Perles. On my assessment, he reports that he is still very tired, and has been sleeping more here. Mood is improved from admission, thinking is becoming more organized, and he feels safe here. He denies suicidal thoughts, and is working on his discharge plans. Physical Exam Psychiatric Orientation: alert, oriented to person, oriented to place and cooperative; + not oriented to time (Unsure how many days he has been in the hospital) Apperance: appropriately dressed and + disheveled Eye Contact: good eye contact Motor Behavior: steady gait and station and no abnormal motor movements Speech: normal rate/rhythm/volume of speech Affect: + blunted affect (With some appropriate smiles) Mood: + depressed mood (But improved from admission) Thought Process: goal directed thought process Thought Content: reality based without delusions (Mild disorganization, improved from admission) Suicidal Thoughts: denies suicidal thoughts Homicidal Thoughts: denies homicidal thoughts Hallucinations: no auditory hallucinations Cognition: attention grossly intact and language grossly intact Insight: + fair insight Judgement: + fair judgement Vital Signs (Past 24 Hours) Last Vital Signs Temp 36.5 C 05/30/18 06:50 Pulse 109 H 05/30/18 06:50 Resp 20 05/30/18 06:50 BP 117/84 05/30/18 06:50 Pulse Ox 97 05/28/18 16:13 Results & Data Laboratory Results Laboratory Results - last 24 hr 05/29/18 05/30/18 10:22 07:10 WBC 7.73 RBC 4.56 L Hgb 14.7 Hct 42.4 MCV 93.0 MCH 32.2 MCHC 34.7 RDW Std Deviation 43.8 RDW Coeff of Levy 13.0 Plt Count 208 MPV 9.5 Immature Gran % (Auto) 1.8 Neut % (Auto) 43.9 Lymph % (Auto) 23.9 [place] % (Auto) 30.0 Eos % (Auto) 0.0 Baso % (Auto) 0.4 Immature Gran # (Auto) 0.14 H Neut # (Auto) 3.39 Lymph # (Auto) 1.85 [place] # (Auto) 2.32 H Eos # (Auto) 0.00 Baso # (Auto) 0.03 Fasting Glucose 114 H Triglycerides 179 H Cholesterol 155 LDL Cholesterol, Calc 83 VLDL Cholesterol, Calc 36 HDL Cholesterol 36 Cholesterol/HDL Ratio 4 Current Inpatient Medications Current Inpatient Medications: Current Inpatient Medications Acetaminophen (Tylenol) 650 mg PO Q4H PRN PRN Reason: Headache or Minor Fever Stop: 06/27/18 21:21 Last Admin: 05/30/18 05:20 Dose: 650 mg Al Hydrox/Mg Hydrox/Simethicone (Maalox) 30 ml PO Q4H PRN PRN Reason: GI Upset Stop: 06/27/18 21:21 Amitriptyline HCl (Elavil) 100 mg PO HS CALI Stop: 06/27/18 22:59 Last Admin: 05/29/18 21:03 Dose: 100 mg Benzonatate (Tessalon Perle) 100 mg PO TID PRN PRN Reason: Cough Stop: 06/28/18 09:14 Last Admin: 05/30/18 08:48 Dose: 100 mg Bismuth Subsalicylate (Kaopectate) 15 ml PO PRN PRN PRN Reason: Loose Stool Stop: 06/27/18 21:21 Clonazepam (Klonopin) 0.5 mg PO 1200 CALI Stop: 06/28/18 11:59 Last Admin: 05/29/18 12:02 Dose: 0.5 mg Clonazepam (Klonopin) 0.5 mg PO HS CALI Stop: 06/27/18 23:29 Last Admin: 05/29/18 21:02 Dose: 0.5 mg Clozapine (Clozapine) 300 mg PO HS CALI Stop: 06/27/18 22:59 Last Admin: 05/29/18 21:04 Dose: 300 mg Divalproex Sodium (Depakote Extended Release) 1,500 mg PO HS CALI Stop: 06/27/18 22:59 Last Admin: 05/29/18 21:04 Dose: 1,500 mg Docusate Sodium (Colace) 100 mg PO BID CALI Stop: 06/28/18 08:59 Last Admin: 05/30/18 08:48 Dose: 100 mg Hydroxyzine HCl (Vistaril) 50 mg PO HSZ PRN PRN Reason: Insomnia Stop: 06/27/18 21:21 Hydroxyzine HCl (Vistaril) 25 mg PO Q4H PRN PRN Reason: Anxiety Stop: 06/27/18 21:21 Lisinopril (Zestril) 5 mg PO QAM CALI Stop: 06/28/18 08:59 Last Admin: 05/30/18 08:48 Dose: 5 mg Magnesium Hydroxide (Milk Of Magnesia) 30 ml PO DAILY PRN PRN Reason: Heartburn Stop: 06/27/18 21:21 Menthol (Nice) 1 yazmin BUCCAL PRN PRN PRN Reason: Sore Throat Stop: 06/28/18 01:56 Last Admin: 05/29/18 04:03 Dose: 1 yazmin Propranolol HCl (Inderal) 10 mg PO 1200 CALI Stop: 06/28/18 11:59 Last Admin: 05/29/18 12:02 Dose: 10 mg Simvastatin (Zocor) 20 mg PO HS CALI Stop: 06/29/18 21:59 Sodium Chloride ([place] Nasal) 1 - 2 sprays NA PRN PRN PRN Reason: Nasal Dryness/Congestion Stop: 06/27/18 21:21 Vitamin D (Vitamin D3) 1,000 units PO QAM CALI Stop: 06/28/18 08:59 Last Admin: 05/30/18 08:48 Dose: 1,000 units Post Discharge Appointments Primary Care Physician Name Of Family Doctor: Dr. Tyler Primary Care Psychiatrist Name of Psychiatrist: [facility] Therapist Name of Therapist: Munira Mejia Therapist's Phone Number: Auto Brake Mechanic Name of Auto Brake Mechanic: Sylvia Castro Phone Number for Auto Brake Mechanic: [phone] Date of Appointment with Auto Brake Mechanic: 06/05/18 Time of Appointment with Auto Brake Mechanic: 1:00pm Partial or Psych Rehab Name of Partial or Psych Rehab: [facility] Contact Information Discharge Discharge Address: [facility] [address] [place] [address] CPT Code CPT Code 92259
[2018-05-30] MEDS: PROPRANOLOL HCL 10 MG TAB PO SCH (12:36)
[2018-05-30] MEDS: clonazePAM 0.5 MG TAB PO SCH ×2 (12:36→21:20)
[2018-05-30] MEDS: cloZAPine 100 MG TAB PO SCH (21:19)
[2018-05-30] MEDS: SIMVASTATIN 20 MG TAB PO SCH (21:19)
[2018-05-30] MEDS: DIVALPROEX EXTENDED RELEASE 500 MG TAB PO SCH (21:19)
[2018-05-30] MEDS: AMITRIPTYLINE HCL 100 MG TAB PO SCH (21:19)
[2018-05-31] MEDS: BENZONATATE 100 MG CAPSULE PO PRN ×2 (08:15→12:50)
[2018-05-31] MEDS: CHOLECALCIFEROL 1,000 UNITS TAB PO SCH (08:16)
[2018-05-31] MEDS: DOCUSATE SODIUM 100 MG CAP PO SCH ×2 (08:16→22:12)
[2018-05-31] MEDS: LISINOPRIL 5 MG TAB PO SCH (08:16)
--- NOTE | 2018-05-31 11:17 | History & Physical ---
Date of Service May 31, 2018 Impression / Recommendations (1) Schizoaffective disorder: 05/29 -admitted voluntarily to the [facility] for safety. -Suicide checks. -Encourage group attendance and participation. Work on healthy coping skills and a discharge safety plan. -Family meeting. -Coordinate care with outpatient providers: regional property manager was present on admission, and we will request records from [place]. -Resume home doses of psychotropics (clozapine, amitriptyline, divalproex, clonazepam, and propanolol), as patient reports he was stable when taking them regularly, but has missed several days recently due to URI. -Check fasting lipid profile and glucose for monitoring on an atypical antipsychotic, as the last one in our system was from July 2016. -CBC with differential checked on admission; ANC 5.37. 05/30 -met with field case manager yesterday, and agreed to increase outpatient services (return to therapy at [facility], and mobile psych rehab). -Continue to work on outpatient safety plan and identifying barriers to following through on it. -Reviewed results of labs with patient: Fasting glucose elevated at 114, and lipid profile notable for elevated triglycerides 179. (2) Acute bronchitis, viral: 05/29 -continue benzonatate 100 mg 3 times daily as needed cough, offer throat lozenges as needed, supportive care. -Reschedule follow-up appointment with PCP, Dr. Nuvia Liao, and follow-up with her after discharge. (3) Hypertension: 05/29 -continue home dose of lisinopril and monitor blood pressure - initially elevated in the ER, but now within normal limits. (4) Hyperlipidemia: 05/29 -clarify home dose of simvastatin and continue here. (5) Hematuria: 05/29 -2+ blood (5-10 RBC/hpf) in urinalysis on admission, and also had hematuria on his last 2 episodes of care in January and April 2017. The patient denies dysuria, flank pain, fever, vigorous exercise, and a history of nephrolithiasis or BPH. BUN, creatinine, and GFR are within normal limits, and he has been drinking normal amounts of fluids. He will need to follow-up with his PCP, Dr. Liao. Inventory Assets Strengths: Stable housing, extensive outpatient services Needs: Return to self-care routine, treatment of medical condition, interventions for safety Risk Factors Assessment Male: Yes : No Do You Have Access To A Gun?: No Health Problems: Yes Mental Health Diagnoses: Yes Substance Use Disorders: No Previous Attempt: Yes Family History of Suicide: No Previous Psychiatric Hospitalization: Yes Smoker: No Protective Factors Assessment : No Responsible for Young Children: No Employed: No (Attempted to seek employment at [employer]) Stable Relationships: Yes Supportive Family: No Good Rapport with Provider: Yes Psychiatric History Identifying Data ROGER SCHMIDT is a 43-year-old M who currently lives in [] [alone] with [], has a history of [], and was admitted on 05/28/18 21:22 on a [201 voluntary] [302 involuntary] commitment for []. Chief Complaint "[]". History of Present Illness The patient is known to us from multiple previous hospitalizations, most recently on the [facility] in July 2016. He presented to the emergency room 2018 reporting suicidal ideation and a suicide attempt by cutting his antecubital area with a pocket knife the day prior. He endorsed worsening mood , increased sleep, decreased appetite, and poor self-care, as he was not showering or changing his clothes regularly. He did not feel safe at home, and agreed to voluntary admission. He said he had missed several days of his medications due to a respiratory illness. He had been seen in the ER 05/26/2018 for cough, had blood work, EKG, troponin, influenza, and chest x-ray, which were unremarkable for sinus tachycardia. He was diagnosed with viral bronchitis , and prescribed benzonatate, oral prednisone, and albuterol inhaler, and instructed to follow-up with his PCP, Dr. Liao (appointment is today). On my assessment, he reports mood has been worsening since 05/24/18, in the context of URI symptoms and "not feeling real well." He missed some of his normal activities (yoga), and when cough worsened, came to the ER 3 days ago. He did not take the oral prednisone, as he feared it would worsen his mood, but did use albuterol several times and thinks that it worsened his mood. He does think his cough is getting better. He says he "tried to off myself" Saturday 05/27 by cutting his arm with a pocket knife, but felt it wasn't going to work, so stopped. When he told his field case manager the following day, he recommended he come to the ER. He describes acute onset of SI after returning from the ER visit Friday 05/26, stating mood "really nosedived." Denies any other triggers/ acute stressors, but felt he had "unrealistic expectations of myself" as far as being able to keep up with his routine while feeling sick - "I do everything like clockwork, and if I'm unable to keep up with it, it's a trainwreck." Notes he usually sticks to a regular schedule, attends all appointments and takes all meds as directed, and felt badly about himself when he was unable to maintain his routine. He reports poor appetite with 10 lbs weight loss in 1 month, not preparing food for himself, doing laundry, or bathing. He denies recent hallucinations, paranoia and delusions, but notes he has "loose associations of thought" at times where his thoughts get more confused, he has trouble identifying people (will see someone on the street and think it is a friend of his, but then realize he does not know the person). He denies recent manic episodes, but reports elevated mood a week ago for several hours while dancing to live music at a local bar. He does not feel safe at home currently, and says he didn't follow his safety plan (contact his friends, outpatient providers, call crisis) in part because he was worried that he might "lose my privileges, I just moved into independent living in July." He has been on a stable med regimen for months-years. Past Psychiatric History Current Psychiatric Diagnosis: Bipolar, schizoaffective NOS Do You Have Access To A Gun?: No History of Previous Suicide Attempt: Yes Describe Attempts in the Past: Reports several past attempts but cutting self and one attempt by OD Allergies Allergy/AdvReac Type Severity Reaction Status Date / Time chlorpromazine Allergy Unknown unknown Verified 05/26/18 15:55 guanfacine Allergy Unknown UNKNOWN Verified 05/26/18 15:55 risperidone Allergy Unknown HAS HAD Verified 05/26/18 15:55 ZYPREXA WITHOUT PROBLEM ziprasidone AdvReac Severe INSIDE Verified 05/26/18 15:55 FEELS LIKE BROKEN GLASS loratadine AdvReac Unknown HIGH ENERGY Verified 05/26/18 15:55 diphenhydramine AdvReac Agitated Verified 05/28/18 21:29 Home Medications Home Medications Medication Instructions Recorded Confirmed Type amitriptyline 100 mg PO HS 02/26/18 05/28/18 History cholecalciferol (vitamin D3) 1,000 units PO DAILY 02/26/18 05/28/18 History [Vitamin D3] clonazepam 0.5 mg PO BID 02/26/18 05/28/18 History clozapine 300 mg PO HS 02/26/18 05/28/18 History divalproex 1,500 mg PO HS 02/26/18 05/28/18 History docusate sodium [Doc-Q-Lace] 100 mg PO BID 02/26/18 05/28/18 History ibuprofen 600 mg PO Q6H PRN 02/26/18 05/28/18 History lisinopril 5 mg PO QAM 02/26/18 05/28/18 History propranolol 10 mg PO DAILY 02/26/18 05/28/18 History sennosides-docusate sodium [Senna 1 tab PO BID PRN 05/29/18 05/29/18 History with Docusate Sodium] simethicone 80 mg PO TIDM PRN 05/29/18 05/29/18 History simvastatin [Zocor] 20 mg PO HS 05/29/18 05/29/18 History Family History Family History of: Depression, Anxiety, Psychosis/ThoughtDisorder, Alcoholism/ Drug Abuse (Father with alcohol abuse) and Bipolar (Mother) Family Mental Health History Comment: mother has bipolar disorder, uncle ( paternal) homicidal thoughts and feelings at times, Alcohol History Hx of Alcohol Use Over the Past 12 Months: No AUDIT Total Score: 0 Smoking Use Have You Smoked or Used Tobacco Products in the Last 30 Days: No Smoking Status: Never smoker Substance History Hx of Prescription Med Misuse Over the Past 12 Months: No Hx of Over the Counter Med Misuse Over the Past 12 Months: No Hx of Inhalent Misuse Over the Past 12 Months: No Hx of Organic Substance Use Over the Past 12 Months: No Hx of Illegal Substances/Street Drug Use Over Past 12 Months: No Problems as a Result of Past Substance Use: None Identified Personal History Living Arrangements: APartment Living Arrangements Comments: Living alone in [facility], has [address]. Born In: [place] Highest Grade Completed: College Highest Grade Completed Comment: Associates Degree 2[employer] (2 yrs [employer] from [employer]) Employment Status: Unemployed Marital Status: Single Number Of Children: 0 Beliefs That Will Affect Care: None Hx Legal Problems: No Hx Traumatic Life Events: No Patient History Medical History Hyperlipidemia Acute bronchitis, viral (Resolved) Anxiety (Chronic) Hypertension (Chronic) Schizoaffective disorder (Chronic) Overdose (Resolved) Bipolar disorder (Chronic) Social History Feels Safe at Home: Yes Smoking Status: Never smoker Beliefs That Will Affect Care: None Preferred Language: Nepali Communication Ability: Effective [employer] Worker Required: No Physical Exam Vital Signs (Past 24 Hours) Last Vital Signs Temp 36.7 C 05/31/18 06:58 Pulse 88 05/31/18 06:59 Resp 18 05/31/18 06:58 BP 112/78 05/31/18 06:59 Pulse Ox 97 05/28/18 16:13 Results & Data Current Inpatient Medications Current Inpatient Medications: Current Inpatient Medications Acetaminophen (Tylenol) 650 mg PO Q4H PRN PRN Reason: Headache or Minor Fever Stop: 06/27/18 21:21 Last Admin: 05/30/18 05:20 Dose: 650 mg Al Hydrox/Mg Hydrox/Simethicone (Maalox) 30 ml PO Q4H PRN PRN Reason: GI Upset Stop: 06/27/18 21:21 Amitriptyline HCl (Elavil) 100 mg PO HS CALI Stop: 06/27/18 22:59 Last Admin: 05/30/18 21:19 Dose: 100 mg Benzonatate (Tessalon Perle) 100 mg PO TID PRN PRN Reason: Cough Stop: 06/28/18 09:14 Last Admin: 05/31/18 08:15 Dose: 100 mg Bismuth Subsalicylate (Kaopectate) 15 ml PO PRN PRN PRN Reason: Loose Stool Stop: 06/27/18 21:21 Clonazepam (Klonopin) 0.5 mg PO 1200 CALI Stop: 06/28/18 11:59 Last Admin: 05/30/18 12:36 Dose: 0.5 mg Clonazepam (Klonopin) 0.5 mg PO HS CALI Stop: 06/27/18 23:29 Last Admin: 05/30/18 21:20 Dose: 0.5 mg Clozapine (Clozapine) 300 mg PO HS [facility] Stop: 06/27/18 22:59 Last Admin: 05/30/18 21:19 Dose: 300 mg Divalproex Sodium (Depakote Extended Release) 1,500 mg PO HS [facility] Stop: 06/27/18 22:59 Last Admin: 05/30/18 21:19 Dose: 1,500 mg Docusate Sodium (Colace) 100 mg PO BID [facility] Stop: 06/28/18 08:59 Last Admin: 05/31/18 08:16 Dose: 100 mg Hydroxyzine HCl (Vistaril) 50 mg PO HSZ PRN PRN Reason: Insomnia Stop: 06/27/18 21:21 Hydroxyzine HCl (Vistaril) 25 mg PO Q4H PRN PRN Reason: Anxiety Stop: 06/27/18 21:21 Lisinopril (Zestril) 5 mg PO QAM [facility] Stop: 06/28/18 08:59 Last Admin: 05/31/18 08:16 Dose: 5 mg Magnesium Hydroxide (Milk Of Magnesia) 30 ml PO DAILY PRN PRN Reason: Heartburn Stop: 06/27/18 21:21 Menthol (Nice) 1 yazmin BUCCAL PRN PRN PRN Reason: Sore Throat Stop: 06/28/18 01:56 Last Admin: 05/29/18 04:03 Dose: 1 yazmin Propranolol HCl (Inderal) 10 mg PO 1200 [facility] Stop: 06/28/18 11:59 Last Admin: 05/30/18 12:36 Dose: 10 mg Simvastatin (Zocor) 20 mg PO HS [facility] Stop: 06/29/18 21:59 Last Admin: 05/30/18 21:19 Dose: 20 mg Sodium Chloride ([place] Nasal) 1 - 2 sprays NA PRN PRN PRN Reason: Nasal Dryness/Congestion Stop: 06/27/18 21:21 Vitamin D (Vitamin D3) 1,000 units PO QAM [facility] Stop: 06/28/18 08:59 Last Admin: 05/31/18 08:16 Dose: 1,000 units CPT Code CPT Code Initial Hospital Care: 72829
--- NOTE | 2018-05-31 11:34 | Psychiatric Progress Note ---
Date of Service May 31, 2018 Impression / Recommendations Impression The patient has continued to improve. On mental status examination today he demonstrates no evidence of delusional material and his thought content. He describes his mood as "good" and "not depressed." He does have insight into the nature of his illness, is able to describe past delusional believes and dangerous behaviors (such as walking barefoot for miles on into the streets of [place], and going for several days without eating or sleeping). He also notes that he is aware that he needs to have mobile psychiatric rehabilitation services and is interested in reconnecting with his therapist. He also reports that he is aware that "even missing 1 dose" of his psychiatric medications may place him at risk for a relapse. He may be minimizing his past history of self- injurious behaviors, but does acknowledge that he deliberately cut his antecubital region (left) with a knife with the intent to kill himself. Today, however, he tells me that he is not feeling suicidal at all and attributes the above-referenced occurrence of self cutting to a combination of the fact that he had missed his evening dose of Depakote on the previous evening, and that he was suffering from bronchitis, and had had an otherwise unspecified adverse reaction to medication that he had taken for the bronchitis. The patient has a history of multiple psychiatric hospitalizations, including a 2-year psychiatric hospitalization at [facility], and multiple previous admissions to local private hospitals. It will be important to arrange appropriate wraparound services for the patient so that he may transition effectively and safely to the community. (1) Schizoaffective disorder: 05/29 -admitted voluntarily to the [facility] for safety. -Suicide checks. -Encourage group attendance and participation. Work on healthy coping skills and a discharge safety plan. -Family meeting. -Coordinate care with outpatient providers: sem manager was present on admission, and we will request records from [facility]. -Resume home doses of psychotropics (clozapine, amitriptyline, divalproex, clonazepam, and propanolol), as patient reports he was stable when taking them regularly, but has missed several days recently due to URI. -Check fasting lipid profile and glucose for monitoring on an atypical antipsychotic, as the last one in our system was from July 2016. -CBC with differential checked on admission; ANC 5.37. 05/30 -met with showcase trimmer yesterday, and agreed to increase outpatient services (return to therapy at [facility], and mobile psych rehab). -Continue to work on outpatient safety plan and identifying barriers to following through on it. -Reviewed results of labs with patient: Fasting glucose elevated at 114, and lipid profile notable for elevated triglycerides 179. 05/31 -the patient has insight into his need for intensive outpatient treatment, and he also recognizes the importance of full adherence with psychiatric medications. -Is self-inflicted wound of the left antecubital region appears to be healing without evidence of exudate, swelling, inflammation, or induration. -The patient is able to describe past delusional believes, and does not demonstrate evidence of current delusional thinking. -He denies any suicidal ideations and tells me that should thoughts of self- harm reoccur he will "tell a friend, or my therapist." -Will continue his current psychiatric medications. (2) Acute bronchitis, viral: 05/29 -continue benzonatate 100 mg 3 times daily as needed cough, offer throat lozenges as needed, supportive care. -Reschedule follow-up appointment with PCP, Dr. Nuvia Liao, and follow-up with her after discharge. 05/31 -- No complaints today. (3) Hypertension: 05/29 -continue home dose of lisinopril and monitor blood pressure - initially elevated in the ER, but now within normal limits. 05/31 - Blood pressure remains within normal limits (4) Hyperlipidemia: 05/29 -clarify home dose of simvastatin and continue here. 05/31 - Simvastatin 20 mg HS (5) Hematuria: 05/29 -2+ blood (5-10 RBC/hpf) in urinalysis on admission, and also had hematuria on his last 2 episodes of care in January and April 2017. The patient denies dysuria, flank pain, fever, vigorous exercise, and a history of nephrolithiasis or BPH. BUN, creatinine, and GFR are within normal limits, and he has been drinking normal amounts of fluids. He will need to follow-up with his PCP, Dr. Liao. 05/31 -- No complaints today. Inventory Assets Strengths: Stable housing, extensive outpatient services Needs: Return to self-care routine, treatment of medical condition, interventions for safety Risk Factors Assessment Male: Yes : No Do You Have Access To A Gun?: No Health Problems: Yes Mental Health Diagnoses: Yes Substance Use Disorders: No Previous Attempt: Yes Family History of Suicide: No Previous Psychiatric Hospitalization: Yes Smoker: No Protective Factors Assessment : No Responsible for Young Children: No Employed: No (Attempted to seek employment at [employer]) Stable Relationships: Yes Supportive Family: No Good Rapport with Provider: Yes Interval History Identifying Information ROGER SCHMIDT is a 42-year-old M who currently lives in [place], has a history of schizoaffective disorder, and was admitted on 05/28/18 21:22 on a 201 voluntary commitment for suicidal ideation and a suicide attempt by cutting his arm. Chief Complaint "I need to arrange for mobile treatment". Review of Systems Sleep Information Total Hours of Sleep: 7.5 Sleep Comments: awakened from coughing. he came out to the nurses station to request and receive a prn dose of tessalon perels at 0516. Meal Information Percent Meal Consumed - Breakfast: 75 Percent Meal Consumed - Lunch: 50 Percent Meal Consumed - Dinner: 100 Subjective Subjective Patient was seen & assessed and interval progress reviewed with Treatment Team. I met with the patient individually in order to assess his current mental status, assess his response to treatment, coordinate any necessary changes in the patient's treatment regimen with the patient, and respond to any questions and concerns that might arise. The patient acknowledges that he was admitted to the hospital because of suicidal ideations and a recent suicide attempt by cutting his left antecubital region with a pocket knife. The patient tells me today that he is feeling "a lot better," and reports that he is no longer having thoughts of suicide. He also reports that he does not feel depressed, but, at the same time, he does not feel that he is ready to leave the hospital because he recognizes that appropriate aftercare arrangements need to be made. For example, he says that he recently terminated with his therapist and is interested in reconnecting with her. He is also interested in local treatment services. Today, the patient tells me that he believes that his suicidal ideation and the above-referenced self cutting episode was a function of 2 variables: Namely, an allergic reaction to the medication that he had been given for bronchitis which somehow resulted in altered mental status; and the fact that he missed his evening dose of Depakote on the evening prior to his presentation at the hospital. So with the patient tells me today is not entirely consistent with the record. For example, he tells me that he is only made 2 suicide attempts in his life, 1 of which occurred approximately 8 or 9 years ago at [facility] by attempting to cut his wrist with a ball point pen, and the above-referenced cutting of his left antecubital region shortly prior to admission. However, the record indicates that there have been other instances of self cutting as well as at least one attempted suicide by overdose. The patient indicates that he is responding favorably to the medications and offers no complaints of side effects. He demonstrates abnormal involuntary movements and tells me that he had previously been diagnosed with tardive dyskinesia. Physical Exam Psychiatric Orientation: alert and oriented x 3 Apperance: appropriately dressed Eye Contact: good eye contact Bilateral tremor of arms, forearms, hands, thighs, and legs. Tongue tremor The patient's speech is spontaneous, and delivered at a normal volume. However , his speech is somewhat slowed and occasionally hesitant. Affect: + constricted affect "Good mood." Thought Process: linear/logical thought process Thought Content: reality based without delusions Suicidal Thoughts: denies suicidal thoughts Homicidal Thoughts: denies homicidal thoughts Hallucinations: no auditory hallucinations, no visual hallucinations, no tactile hallucinations and no gustatory hallucinations Cognition: recent memory grossly intact, remote memory grossly intact and attention grossly intact Estimated Intelligence: + above average estimated intelligence Insight: + fair insight Judgement: good judgement Vital Signs (Past 24 Hours) Last Vital Signs Temp 36.7 C 05/31/18 06:58 Pulse 88 05/31/18 06:59 Resp 18 05/31/18 06:58 BP 112/78 05/31/18 06:59 Pulse Ox 97 05/28/18 16:13 Results & Data Current Inpatient Medications Current Inpatient Medications: Current Inpatient Medications Acetaminophen (Tylenol) 650 mg PO Q4H PRN PRN Reason: Headache or Minor Fever Stop: 06/27/18 21:21 Last Admin: 05/30/18 05:20 Dose: 650 mg Al Hydrox/Mg Hydrox/Simethicone (Maalox) 30 ml PO Q4H PRN PRN Reason: GI Upset Stop: 06/27/18 21:21 Amitriptyline HCl (Elavil) 100 mg PO HS CALI Stop: 06/27/18 22:59 Last Admin: 05/30/18 21:19 Dose: 100 mg Benzonatate (Tessalon Perle) 100 mg PO TID PRN PRN Reason: Cough Stop: 06/28/18 09:14 Last Admin: 05/31/18 08:15 Dose: 100 mg Bismuth Subsalicylate (Kaopectate) 15 ml PO PRN PRN PRN Reason: Loose Stool Stop: 06/27/18 21:21 Clonazepam (Klonopin) 0.5 mg PO 1200 CALI Stop: 06/28/18 11:59 Last Admin: 05/30/18 12:36 Dose: 0.5 mg Clonazepam (Klonopin) 0.5 mg PO HS CALI Stop: 06/27/18 23:29 Last Admin: 05/30/18 21:20 Dose: 0.5 mg Clozapine (Clozapine) 300 mg PO HS CALI Stop: 06/27/18 22:59 Last Admin: 05/30/18 21:19 Dose: 300 mg Divalproex Sodium (Depakote Extended Release) 1,500 mg PO HS CALI Stop: 06/27/18 22:59 Last Admin: 05/30/18 21:19 Dose: 1,500 mg Docusate Sodium (Colace) 100 mg PO BID CALI Stop: 06/28/18 08:59 Last Admin: 05/31/18 08:16 Dose: 100 mg Hydroxyzine HCl (Vistaril) 50 mg PO HSZ PRN PRN Reason: Insomnia Stop: 06/27/18 21:21 Hydroxyzine HCl (Vistaril) 25 mg PO Q4H PRN PRN Reason: Anxiety Stop: 06/27/18 21:21 Lisinopril (Zestril) 5 mg PO QAM CALI Stop: 06/28/18 08:59 Last Admin: 05/31/18 08:16 Dose: 5 mg Magnesium Hydroxide (Milk Of Magnesia) 30 ml PO DAILY PRN PRN Reason: Heartburn Stop: 06/27/18 21:21 Menthol (Nice) 1 yazmin BUCCAL PRN PRN PRN Reason: Sore Throat Stop: 06/28/18 01:56 Last Admin: 05/29/18 04:03 Dose: 1 yazmin Propranolol HCl (Inderal) 10 mg PO 1200 CALI Stop: 06/28/18 11:59 Last Admin: 05/30/18 12:36 Dose: 10 mg Simvastatin (Zocor) 20 mg PO HS CALI Stop: 06/29/18 21:59 Last Admin: 05/30/18 21:19 Dose: 20 mg Sodium Chloride ([place] Nasal) 1 - 2 sprays NA PRN PRN PRN Reason: Nasal Dryness/Congestion Stop: 06/27/18 21:21 Vitamin D (Vitamin D3) 1,000 units PO QAM CALI Stop: 06/28/18 08:59 Last Admin: 05/31/18 08:16 Dose: 1,000 units Post Discharge Appointments Primary Care Physician Name Of Family Doctor: Dr. Tyler Primary Care Psychiatrist Name of Psychiatrist: Opal Therapist Name of Therapist: Munira Jay Therapist's Phone Number: Date of Therapist Appointment: 06/12/18 Time of Therapist Appointment: 10:00am Emergency Medical Technician Name of Emergency Medical Technician: Sylvia Castro Phone Number for Emergency Medical Technician: [phone] Date of Appointment with Emergency Medical Technician: 06/05/18 Time of Appointment with Emergency Medical Technician: 1:00pm Partial or Psych Rehab Name of Partial or Psych Rehab: [facility] Contact Information Discharge Discharge Address: [place]into [address] [place] [address] CPT Code CPT Code 03789
[2018-05-31] MEDS: PROPRANOLOL HCL 10 MG TAB PO SCH (12:15)
[2018-05-31] MEDS: clonazePAM 0.5 MG TAB PO SCH ×2 (12:15→22:13)
[2018-05-31] MEDS: cloZAPine 100 MG TAB PO SCH (22:12)
[2018-05-31] MEDS: DIVALPROEX EXTENDED RELEASE 500 MG TAB PO SCH (22:13)
[2018-05-31] MEDS: SIMVASTATIN 20 MG TAB PO SCH (22:13)
[2018-05-31] MEDS: AMITRIPTYLINE HCL 100 MG TAB PO SCH (22:13)
[2018-06-01] MEDS: CHOLECALCIFEROL 1,000 UNITS TAB PO SCH (09:27)
[2018-06-01] MEDS: LISINOPRIL 5 MG TAB PO SCH (09:27)
[2018-06-01] MEDS: DOCUSATE SODIUM 100 MG CAP PO SCH ×2 (09:27→21:27)
[2018-06-01] MEDS: clonazePAM 0.5 MG TAB PO SCH ×2 (12:37→21:28)
[2018-06-01] MEDS: PROPRANOLOL HCL 10 MG TAB PO SCH (12:37)
--- NOTE | 2018-06-01 13:28 | Psychiatric Progress Note ---
Date of Service June 01, 2018 Impression / Recommendations Impression 43 yo CM with h/o Schizoaffective d/o admitted s/p suicide attempt by stabbing himself in the arm. The patient has a history of multiple psychiatric hospitalizations, including a 2-year psychiatric hospitalization at [facility], and multiple previous admissions to local private hospitals, as well as to this facility. Patient since admission seems to be improving with his mood and is denying SI/Hi/aVH. He has been compliant with meds and treatment and insight has improved as well. Given extensive history it would be important for patient to obtain good discharge planning and follow up and show consistant stability prior to discharge. Will continue to treat at this time. (1) Schizoaffective disorder: 05/29 -admitted voluntarily to the [facility] for safety. -Suicide checks. -Encourage group attendance and participation. Work on healthy coping skills and a discharge safety plan. -Family meeting. -Coordinate care with outpatient providers: vendor manager was present on admission, and we will request records from [facility]. -Resume home doses of psychotropics (clozapine, amitriptyline, divalproex, clonazepam, and propanolol), as patient reports he was stable when taking them regularly, but has missed several days recently due to URI. -Check fasting lipid profile and glucose for monitoring on an atypical antipsychotic, as the last one in our system was from July 2016. -CBC with differential checked on admission; ANC 5.37. 05/30 -met with case management assistant yesterday, and agreed to increase outpatient services (return to therapy at [facility], and mobile psych rehab). -Continue to work on outpatient safety plan and identifying barriers to following through on it. -Reviewed results of labs with patient: Fasting glucose elevated at 114, and lipid profile notable for elevated triglycerides 179. 05/31 -the patient has insight into his need for intensive outpatient treatment, and he also recognizes the importance of full adherence with psychiatric medications. -Is self-inflicted wound of the left antecubital region appears to be healing without evidence of exudate, swelling, inflammation, or induration. -The patient is able to describe past delusional believes, and does not demonstrate evidence of current delusional thinking. -He denies any suicidal ideations and tells me that should thoughts of self- harm reoccur he will "tell a friend, or my therapist." -Will continue his current psychiatric medications. 06/01 - Continue current regimen - Discharge planning and outpatient services - Improving insight - Safety plan needed for discharge (2) Acute bronchitis, viral: 05/29 -continue benzonatate 100 mg 3 times daily as needed cough, offer throat lozenges as needed, supportive care. -Reschedule follow-up appointment with PCP, Dr. Nuvia Liao, and follow-up with her after discharge. 05/31 -- No complaints today. (3) Hypertension: 05/29 -continue home dose of lisinopril and monitor blood pressure - initially elevated in the ER, but now within normal limits. 05/31 - Blood pressure remains within normal limits (4) Hyperlipidemia: 05/29 -clarify home dose of simvastatin and continue here. 05/31 - Simvastatin 20 mg HS (5) Hematuria: 05/29 -2+ blood (5-10 RBC/hpf) in urinalysis on admission, and also had hematuria on his last 2 episodes of care in January and April 2017. The patient denies dysuria, flank pain, fever, vigorous exercise, and a history of nephrolithiasis or BPH. BUN, creatinine, and GFR are within normal limits, and he has been drinking normal amounts of fluids. He will need to follow-up with his PCP, Dr. Liao. 05/31 -- No complaints today. Inventory Assets Strengths: Stable housing, extensive outpatient services Needs: Return to self-care routine, treatment of medical condition, interventions for safety Risk Factors Assessment Male: Yes : No Do You Have Access To A Gun?: No Health Problems: Yes Mental Health Diagnoses: Yes Substance Use Disorders: No Previous Attempt: Yes Family History of Suicide: No Previous Psychiatric Hospitalization: Yes Smoker: No Protective Factors Assessment : No Responsible for Young Children: No Employed: No (Attempted to seek employment at [employer]) Stable Relationships: Yes Supportive Family: No Good Rapport with Provider: Yes Interval History Identifying Information ROGER SCHMIDT is a 42-year-old M who currently lives in [place], has a history of schizoaffective disorder, and was admitted on 05/28/18 21:22 on a 201 voluntary commitment for suicidal ideation and a suicide attempt by cutting his arm. Chief Complaint "I'm not suicidal anymore". Review of Systems Sleep Information Total Hours of Sleep: 7.5 Sleep Comments: pt on q-15 minute checks Meal Information Percent Meal Consumed - Breakfast: 75 Percent Meal Consumed - Lunch: 75 Percent Meal Consumed - Dinner: 90 Subjective Subjective Patient reported his mood is "ok" and briefly described his attempt to stab his arm and states "I was suicidal at that moment". Reports he had a reaction to asthma meds and states it made him "feel weird". He states that there are veins in the arms and that he couldn't have killed himself. Reports fluctuating appetite but is eating fine in hospital. Denies Si/Hi/aVH and states that he is going to have mobile mental health care set up and also has a Psychiatrist whom he will follow up with. States he does not miss his medications and will continue to take them. Patient was seen & assessed and interval progress reviewed with Nursing Physical Exam Psychiatric A+Ox3, euthymic affect Apperance: appropriately dressed Eye Contact: + fair eye contact Motor Behavior: no abnormal motor movements Speech: normal rate/rhythm/volume of speech Affect: euthymic affect and mood congruent with affect Thought Process: goal directed thought process Thought Content: reality based without delusions; not paranoid Suicidal Thoughts: denies suicidal thoughts Homicidal Thoughts: denies homicidal thoughts Hallucinations: no auditory hallucinations and no visual hallucinations Cognition: recent memory grossly intact and remote memory grossly intact Estimated Intelligence: average estimated intelligence Insight: + fair insight Judgement: + fair judgement Vital Signs (Past 24 Hours) Last Vital Signs Temp 36.7 C 06/01/18 06:56 Pulse 82 06/01/18 06:56 Resp 16 06/01/18 06:56 BP 125/86 06/01/18 06:56 Pulse Ox 97 05/28/18 16:13 Results & Data Current Inpatient Medications Current Inpatient Medications: Current Inpatient Medications Acetaminophen (Tylenol) 650 mg PO Q4H PRN PRN Reason: Headache or Minor Fever Stop: 06/27/18 21:21 Last Admin: 05/30/18 05:20 Dose: 650 mg Al Hydrox/Mg Hydrox/Simethicone (Maalox) 30 ml PO Q4H PRN PRN Reason: GI Upset Stop: 06/27/18 21:21 Amitriptyline HCl (Elavil) 100 mg PO HS CALI Stop: 06/27/18 22:59 Last Admin: 05/31/18 22:13 Dose: 100 mg Benzonatate (Tessalon Perle) 100 mg PO TID PRN PRN Reason: Cough Stop: 06/28/18 09:14 Last Admin: 05/31/18 12:50 Dose: 100 mg Bismuth Subsalicylate (Kaopectate) 15 ml PO PRN PRN PRN Reason: Loose Stool Stop: 06/27/18 21:21 Clonazepam (Klonopin) 0.5 mg PO 1200 CALI Stop: 06/28/18 11:59 Last Admin: 06/01/18 12:37 Dose: 0.5 mg Clonazepam (Klonopin) 0.5 mg PO HS CALI Stop: 06/27/18 23:29 Last Admin: 05/31/18 22:13 Dose: 0.5 mg Clozapine (Clozapine) 300 mg PO HS CALI Stop: 06/27/18 22:59 Last Admin: 05/31/18 22:12 Dose: 300 mg Divalproex Sodium (Depakote Extended Release) 1,500 mg PO HS CALI Stop: 06/27/18 22:59 Last Admin: 05/31/18 22:13 Dose: 1,500 mg Docusate Sodium (Colace) 100 mg PO BID CALI Stop: 06/28/18 08:59 Last Admin: 06/01/18 09:27 Dose: 100 mg Hydroxyzine HCl (Vistaril) 50 mg PO HSZ PRN PRN Reason: Insomnia Stop: 06/27/18 21:21 Hydroxyzine HCl (Vistaril) 25 mg PO Q4H PRN PRN Reason: Anxiety Stop: 06/27/18 21:21 Lisinopril (Zestril) 5 mg PO QAM CALI Stop: 06/28/18 08:59 Last Admin: 06/01/18 09:27 Dose: 5 mg Magnesium Hydroxide (Milk Of Magnesia) 30 ml PO DAILY PRN PRN Reason: Heartburn Stop: 06/27/18 21:21 Menthol (Nice) 1 yazmin BUCCAL PRN PRN PRN Reason: Sore Throat Stop: 06/28/18 01:56 Last Admin: 05/29/18 04:03 Dose: 1 yazmin Propranolol HCl (Inderal) 10 mg PO 1200 CALI Stop: 06/28/18 11:59 Last Admin: 06/01/18 12:37 Dose: 10 mg Simvastatin (Zocor) 20 mg PO HS CALI Stop: 06/29/18 21:59 Last Admin: 05/31/18 22:13 Dose: 20 mg Sodium Chloride ([place] Nasal) 1 - 2 sprays NA PRN PRN PRN Reason: Nasal Dryness/Congestion Stop: 06/27/18 21:21 Vitamin D (Vitamin D3) 1,000 units PO QAM CALI Stop: 06/28/18 08:59 Last Admin: 06/01/18 09:27 Dose: 1,000 units Post Discharge Appointments Primary Care Physician Name Of Family Doctor: Dr. Tyler Primary Care Psychiatrist Name of Psychiatrist: Opal Therapist Name of Therapist: Rose PERRY,Munira Therapist's Phone Number: Date of Therapist Appointment: 06/12/18 Time of Therapist Appointment: 10:00am Pantographer Name of Pantographer: Sylvia Castro Phone Number for Pantographer: [phone] Date of Appointment with Pantographer: 06/05/18 Time of Appointment with Pantographer: 1:00pm Partial or Psych Rehab Name of Partial or Psych Rehab: [facility] Contact Information Discharge Discharge Address: [place] Jacinto [address] [place] [address] CPT Code CPT Code 11757
[2018-06-01] MEDS: COUGH DROP (SUGAR FREE) LOZ 24 LOZ/1 BOX BUCCAL PRN (18:50)
[2018-06-01] MEDS: cloZAPine 100 MG TAB PO SCH (21:27)
[2018-06-01] MEDS: DIVALPROEX EXTENDED RELEASE 500 MG TAB PO SCH (21:27)
[2018-06-01] MEDS: AMITRIPTYLINE HCL 100 MG TAB PO SCH (21:28)
[2018-06-01] MEDS: SIMVASTATIN 20 MG TAB PO SCH (21:28)
[2018-06-02] MEDS: LISINOPRIL 5 MG TAB PO SCH (09:34)
[2018-06-02] MEDS: DOCUSATE SODIUM 100 MG CAP PO SCH ×2 (09:59→21:12)
[2018-06-02] MEDS: CHOLECALCIFEROL 1,000 UNITS TAB PO SCH (09:59)
--- NOTE | 2018-06-02 11:24 | Psychiatric Progress Note ---
Date of Service June 02, 2018 Impression / Recommendations Impression 43 yo CM with h/o Schizoaffective d/o admitted s/p suicide attempt by stabbing himself in the arm. The patient has a history of multiple psychiatric hospitalizations, including a 2-year psychiatric hospitalization at [facility], and multiple previous admissions to local private hospitals, as well as to this facility. Patient since admission seems to be improving with his mood and is denying SI/Hi/aVH. He has been compliant with meds and treatment and insight has improved as well. Given extensive history it would be important for patient to obtain good discharge planning and follow up prior to discharge. Will continue to treat at this time. (1) Schizoaffective disorder: 05/29 -admitted voluntarily to the [facility] for safety. -Suicide checks. -Encourage group attendance and participation. Work on healthy coping skills and a discharge safety plan. -Family meeting. -Coordinate care with outpatient providers: innovation manager was present on admission, and we will request records from [facility]. -Resume home doses of psychotropics (clozapine, amitriptyline, divalproex, clonazepam, and propanolol), as patient reports he was stable when taking them regularly, but has missed several days recently due to URI. -Check fasting lipid profile and glucose for monitoring on an atypical antipsychotic, as the last one in our system was from July 2016. -CBC with differential checked on admission; ANC 5.37. 05/30 -met with lead case manager yesterday, and agreed to increase outpatient services (return to therapy at [facility], and mobile psych rehab). -Continue to work on outpatient safety plan and identifying barriers to following through on it. -Reviewed results of labs with patient: Fasting glucose elevated at 114, and lipid profile notable for elevated triglycerides 179. 05/31 -the patient has insight into his need for intensive outpatient treatment, and he also recognizes the importance of full adherence with psychiatric medications. -Is self-inflicted wound of the left antecubital region appears to be healing without evidence of exudate, swelling, inflammation, or induration. -The patient is able to describe past delusional believes, and does not demonstrate evidence of current delusional thinking. -He denies any suicidal ideations and tells me that should thoughts of self- harm reoccur he will "tell a friend, or my therapist." -Will continue his current psychiatric medications. 06/01 - Continue current regimen - Discharge planning and outpatient services - Improving insight - Safety plan needed for discharge 06/02 - Continue current regimen - Discharge planning and outpatient services - Safety plan needed for discharge (2) Acute bronchitis, viral: 05/29 -continue benzonatate 100 mg 3 times daily as needed cough, offer throat lozenges as needed, supportive care. -Reschedule follow-up appointment with PCP, Dr. Nuvia Liao, and follow-up with her after discharge. 05/31 -- No complaints today. (3) Hypertension: 05/29 -continue home dose of lisinopril and monitor blood pressure - initially elevated in the ER, but now within normal limits. 05/31 - Blood pressure remains within normal limits (4) Hyperlipidemia: 05/29 -clarify home dose of simvastatin and continue here. 05/31 - Simvastatin 20 mg HS (5) Hematuria: 05/29 -2+ blood (5-10 RBC/hpf) in urinalysis on admission, and also had hematuria on his last 2 episodes of care in January and April 2017. The patient denies dysuria, flank pain, fever, vigorous exercise, and a history of nephrolithiasis or BPH. BUN, creatinine, and GFR are within normal limits, and he has been drinking normal amounts of fluids. He will need to follow-up with his PCP, Dr. Liao. 05/31 -- No complaints today. Inventory Assets Strengths: Stable housing, extensive outpatient services Needs: Return to self-care routine, treatment of medical condition, interventions for safety Risk Factors Assessment Male: Yes : No Do You Have Access To A Gun?: No Health Problems: Yes Mental Health Diagnoses: Yes Substance Use Disorders: No Previous Attempt: Yes Family History of Suicide: No Previous Psychiatric Hospitalization: Yes Smoker: No Protective Factors Assessment : No Responsible for Young Children: No Employed: No (Attempted to seek employment at [employer]) Stable Relationships: Yes Supportive Family: No Good Rapport with Provider: Yes Interval History Identifying Information ROGER SCHMIDT is a 42-year-old M who currently lives in [place], has a history of schizoaffective disorder, and was admitted on 05/28/18 21:22 on a 201 voluntary commitment for suicidal ideation and a suicide attempt by cutting his arm. Chief Complaint "I'm doing fine, but I need my follow ups" Review of Systems Sleep Information Total Hours of Sleep: 7.25 Sleep Comments: pt on q-15 minute checks Meal Information Percent Meal Consumed - Breakfast: 75 Percent Meal Consumed - Lunch: 75 Percent Meal Consumed - Dinner: 100 Subjective Subjective Patient found laying in bed this morning. He states "I'm doing fine" and states "I think the albuterol I was allergic to it". He reports that he plans to go back and live in his own apartment and has his own car too. He denies any suicidal thoughts, intent of plan and denies HI/aVH. He states he needs help getting follow up with mobile psych and his therapist before going home. Patient was seen & assessed and interval progress reviewed with Nursing Physical Exam Psychiatric A+Ox3, euthymic affect Apperance: appropriately dressed Eye Contact: + fair eye contact Motor Behavior: no abnormal motor movements Speech: normal rate/rhythm/volume of speech Affect: euthymic affect and mood congruent with affect Thought Process: goal directed thought process Thought Content: reality based without delusions Suicidal Thoughts: denies suicidal thoughts Homicidal Thoughts: denies homicidal thoughts Hallucinations: no auditory hallucinations and no visual hallucinations Cognition: recent memory grossly intact and remote memory grossly intact Estimated Intelligence: average estimated intelligence Insight: + fair insight Judgement: + fair judgement Vital Signs (Past 24 Hours) Last Vital Signs Temp 36.6 C 06/02/18 06:55 Pulse 86 06/02/18 06:56 Resp 16 06/02/18 06:55 BP 107/70 06/02/18 06:56 Pulse Ox 97 05/28/18 16:13 Results & Data Current Inpatient Medications Current Inpatient Medications: Current Inpatient Medications Acetaminophen (Tylenol) 650 mg PO Q4H PRN PRN Reason: Headache or Minor Fever Stop: 06/27/18 21:21 Last Admin: 05/30/18 05:20 Dose: 650 mg Al Hydrox/Mg Hydrox/Simethicone (Maalox) 30 ml PO Q4H PRN PRN Reason: GI Upset Stop: 06/27/18 21:21 Amitriptyline HCl (Elavil) 100 mg PO HS CALI Stop: 06/27/18 22:59 Last Admin: 06/01/18 21:28 Dose: 100 mg Benzonatate (Tessalon Perle) 100 mg PO TID PRN PRN Reason: Cough Stop: 06/28/18 09:14 Last Admin: 05/31/18 12:50 Dose: 100 mg Bismuth Subsalicylate (Kaopectate) 15 ml PO PRN PRN PRN Reason: Loose Stool Stop: 06/27/18 21:21 Clonazepam (Klonopin) 0.5 mg PO 1200 [facility] Stop: 06/28/18 11:59 Last Admin: 06/01/18 12:37 Dose: 0.5 mg Clonazepam (Klonopin) 0.5 mg PO HS CALI Stop: 06/27/18 23:29 Last Admin: 06/01/18 21:28 Dose: 0.5 mg Clozapine (Clozapine) 300 mg PO HS [facility]I Stop: 06/27/18 22:59 Last Admin: 06/01/18 21:27 Dose: 300 mg Divalproex Sodium (Depakote Extended Release) 1,500 mg PO HS [facility] Stop: 06/27/18 22:59 Last Admin: 06/01/18 21:27 Dose: 1,500 mg Docusate Sodium (Colace) 100 mg PO BID [facility]I Stop: 06/28/18 08:59 Last Admin: 06/02/18 09:59 Dose: 100 mg Hydroxyzine HCl (Vistaril) 50 mg PO HSZ PRN PRN Reason: Insomnia Stop: 06/27/18 21:21 Hydroxyzine HCl (Vistaril) 25 mg PO Q4H PRN PRN Reason: Anxiety Stop: 06/27/18 21:21 Lisinopril (Zestril) 5 mg PO QAM [facility] Stop: 06/28/18 08:59 Last Admin: 06/02/18 09:34 Dose: 5 mg Magnesium Hydroxide (Milk Of Magnesia) 30 ml PO DAILY PRN PRN Reason: Heartburn Stop: 06/27/18 21:21 Menthol (Nice) 1 yazmin BUCCAL PRN PRN PRN Reason: Sore Throat Stop: 06/28/18 01:56 Last Admin: 06/01/18 18:50 Dose: 1 yazmin Propranolol HCl (Inderal) 10 mg PO 1200 [facility] Stop: 06/28/18 11:59 Last Admin: 06/01/18 12:37 Dose: 10 mg Simvastatin (Zocor) 20 mg PO HS [facility]I Stop: 06/29/18 21:59 Last Admin: 06/01/18 21:28 Dose: 20 mg Sodium Chloride ([place] Nasal) 1 - 2 sprays NA PRN PRN PRN Reason: Nasal Dryness/Congestion Stop: 06/27/18 21:21 Vitamin D (Vitamin D3) 1,000 units PO QAM [facility] Stop: 06/28/18 08:59 Last Admin: 06/02/18 09:59 Dose: 1,000 units Post Discharge Appointments Primary Care Physician Name Of Family Doctor: Dr. Tyler Primary Care Psychiatrist Name of Psychiatrist: Opal Therapist Name of Therapist: Rose PERRY,[place]un[place] Therapist's Phone Number: Date of Therapist Appointment: 06/12/18 Time of Therapist Appointment: 10:00am Academic Affairs Dean Name of Academic Affairs Dean: Sylvia Castro Phone Number for Academic Affairs Dean: [phone] Date of Appointment with Academic Affairs Dean: 06/05/18 Time of Appointment with Academic Affairs Dean: 1:00pm Partial or Psych Rehab Name of Partial or Psych Rehab: [facility] Contact Information Discharge Discharge Address: [facility] [address] [place] [address] CPT Code CPT Code 03041
[2018-06-02] MEDS: clonazePAM 0.5 MG TAB PO SCH ×2 (12:59→21:12)
[2018-06-02] MEDS: PROPRANOLOL HCL 10 MG TAB PO SCH (12:59)
[2018-06-02] MEDS: COUGH DROP (SUGAR FREE) LOZ 24 LOZ/1 BOX BUCCAL PRN (18:13)
[2018-06-02] MEDS: DIVALPROEX EXTENDED RELEASE 500 MG TAB PO SCH (21:12)
[2018-06-02] MEDS: SIMVASTATIN 20 MG TAB PO SCH (21:12)
[2018-06-02] MEDS: AMITRIPTYLINE HCL 100 MG TAB PO SCH (21:12)
[2018-06-02] MEDS: cloZAPine 100 MG TAB PO SCH (21:12)
[2018-06-03] MEDS: LISINOPRIL 5 MG TAB PO SCH (09:08)
[2018-06-03] MEDS: CHOLECALCIFEROL 1,000 UNITS TAB PO SCH (09:08)
[2018-06-03] MEDS: DOCUSATE SODIUM 100 MG CAP PO SCH ×2 (09:08→21:21)
--- NOTE | 2018-06-03 09:27 | Psychiatric Progress Note ---
Date of Service June 03, 2018 Impression / Recommendations Impression 43 yo CM with h/o Schizoaffective d/o admitted s/p suicide attempt by cutting his forearm. The patient has a history of multiple psychiatric hospitalizations , and has extensive outpatient treatment in place. Although overall he is improving here, he continues to have suicidal thoughts at times, and does not yet feel safe to leave the hospital. He has been compliant with meds and treatment, and is working on his discharge plan. Given extensive history it would be important for patient to obtain good discharge planning and follow up prior to discharge. Inpatient treatment remains medically necessary at this time due to the risk of suicide or self-harm if discharged prematurely. (1) Schizoaffective disorder: 05/29 -admitted voluntarily to the [facility] for safety. -Suicide checks. -Encourage group attendance and participation. Work on healthy coping skills and a discharge safety plan. -Family meeting. -Coordinate care with outpatient providers: shared services manager was present on admission, and we will request records from [facility]. -Resume home doses of psychotropics (clozapine, amitriptyline, divalproex, clonazepam, and propanolol), as patient reports he was stable when taking them regularly, but has missed several days recently due to URI. -Check fasting lipid profile and glucose for monitoring on an atypical antipsychotic, as the last one in our system was from July 2016. -CBC with differential checked on admission; ANC 5.37. 05/30 -met with piano case and bench assembler yesterday, and agreed to increase outpatient services (return to therapy at [facility], and mobile psych rehab). -Continue to work on outpatient safety plan and identifying barriers to following through on it. -Reviewed results of labs with patient: Fasting glucose elevated at 114, and lipid profile notable for elevated triglycerides 179. 05/31 -the patient has insight into his need for intensive outpatient treatment, and he also recognizes the importance of full adherence with psychiatric medications. -Is self-inflicted wound of the left antecubital region appears to be healing without evidence of exudate, swelling, inflammation, or induration. -The patient is able to describe past delusional believes, and does not demonstrate evidence of current delusional thinking. -He denies any suicidal ideations and tells me that should thoughts of self- harm reoccur he will "tell a friend, or my therapist." -Will continue his current psychiatric medications. 06/01 - Continue current regimen - Discharge planning and outpatient services - Improving insight - Safety plan needed for discharge 06/02 - Continue current regimen - Discharge planning and outpatient services - Safety plan needed for discharge 06/03 -Patient endorses intermittent suicidal thoughts, and is working on his safety plan, including barriers to utilizing it as an outpatient. -Coordinate with mobile psych rehab to arrange increased outpatient services upon discharge. -Needs appointment with PCP and psychiatrist for follow-up. (2) Acute bronchitis, viral: 05/29 -continue benzonatate 100 mg 3 times daily as needed cough, offer throat lozenges as needed, supportive care. -Reschedule follow-up appointment with PCP, Dr. Nuvia Liao, and follow-up with her after discharge. 05/31 - No complaints today. (3) Hypertension: 05/29 -continue home dose of lisinopril and monitor blood pressure - initially elevated in the ER, but now within normal limits. 05/31 - Blood pressure remains within normal limits (4) Hyperlipidemia: 05/29 -clarify home dose of simvastatin and continue here. 05/31 - Simvastatin 20 mg HS (5) Hematuria: 05/29 -2+ blood (5-10 RBC/hpf) in urinalysis on admission, and also had hematuria on his last 2 episodes of care in January and April 2017. The patient denies dysuria, flank pain, fever, vigorous exercise, and a history of nephrolithiasis or BPH. BUN, creatinine, and GFR are within normal limits, and he has been drinking normal amounts of fluids. He will need to follow-up with his PCP, Dr. Liao. 05/31 -- No complaints today. Inventory Assets Strengths: Stable housing, extensive outpatient services Needs: Return to self-care routine, treatment of medical condition, interventions for safety Risk Factors Assessment Male: Yes : No Do You Have Access To A Gun?: No Health Problems: Yes Mental Health Diagnoses: Yes Substance Use Disorders: No Previous Attempt: Yes Family History of Suicide: No Previous Psychiatric Hospitalization: Yes Smoker: No Protective Factors Assessment : No Responsible for Young Children: No Employed: No (Attempted to seek employment at [employer]) Stable Relationships: Yes Supportive Family: No Good Rapport with Provider: Yes Interval History Identifying Information ROGER SCHMIDT is a 42-year-old M who currently lives in [place], has a history of schizoaffective disorder, and was admitted on 05/28/18 21:22 on a 201 voluntary commitment for suicidal ideation and a suicide attempt by cutting his arm. Chief Complaint "Tired". Review of Systems Sleep Information Total Hours of Sleep: 8.25 Sleep Comments: pt on q-15 minute checks Meal Information Percent Meal Consumed - Breakfast: 90 Percent Meal Consumed - Lunch: 90 Percent Meal Consumed - Dinner: 100 Subjective Subjective Patient was seen & assessed and interval progress reviewed with Treatment Team. Staff report he is attending groups, but has minimal participation. He is reporting improved mood. On my assessment, the patient reports mood is "ok," and says he has been sleeping a lot as he continues to feel tired. He reports suicidal thoughts last night when he was feeling "bored," but says he feels safe here. He says it "feels good to be honest" about his suicidal thoughts. He is working on his discharge safety plan and hopes to increase his OP services. Physical Exam Psychiatric Orientation: alert and cooperative Apperance: appropriately dressed and + disheveled Eye Contact: good eye contact Motor Behavior: steady gait and station and no abnormal motor movements Speech: normal rate/rhythm/volume of speech Affect: + blunted affect "Okay." Thought Process: goal directed thought process Thought Content: reality based without delusions Suicidal Thoughts: + reports suicidal thoughts Homicidal Thoughts: denies homicidal thoughts Hallucinations: no auditory hallucinations and no visual hallucinations Cognition: recent memory grossly intact, attention grossly intact and language grossly intact Insight: good insight Judgement: good judgement Vital Signs (Past 24 Hours) Last Vital Signs Temp 36.6 C 06/03/18 07:01 Pulse 81 06/03/18 07:02 Resp 16 06/03/18 07:01 BP 95/60 L 06/03/18 07:02 Pulse Ox 97 05/28/18 16:13 Results & Data Current Inpatient Medications Current Inpatient Medications: Current Inpatient Medications Acetaminophen (Tylenol) 650 mg PO Q4H PRN PRN Reason: Headache or Minor Fever Stop: 06/27/18 21:21 Last Admin: 05/30/18 05:20 Dose: 650 mg Al Hydrox/Mg Hydrox/Simethicone (Maalox) 30 ml PO Q4H PRN PRN Reason: GI Upset Stop: 06/27/18 21:21 Amitriptyline HCl (Elavil) 100 mg PO HS [facility]I Stop: 06/27/18 22:59 Last Admin: 06/02/18 21:12 Dose: 100 mg Benzonatate (Tessalon Perle) 100 mg PO TID PRN PRN Reason: Cough Stop: 06/28/18 09:14 Last Admin: 05/31/18 12:50 Dose: 100 mg Bismuth Subsalicylate (Kaopectate) 15 ml PO PRN PRN PRN Reason: Loose Stool Stop: 06/27/18 21:21 Clonazepam (Klonopin) 0.5 mg PO 1200 [facility] Stop: 06/28/18 11:59 Last Admin: 06/02/18 12:59 Dose: 0.5 mg Clonazepam (Klonopin) 0.5 mg PO HS [facility] Stop: 06/27/18 23:29 Last Admin: 06/02/18 21:12 Dose: 0.5 mg Clozapine (Clozapine) 300 mg PO HS [facility] Stop: 06/27/18 22:59 Last Admin: 06/02/18 21:12 Dose: 300 mg Divalproex Sodium (Depakote Extended Release) 1,500 mg PO HS [facility] Stop: 06/27/18 22:59 Last Admin: 06/02/18 21:12 Dose: 1,500 mg Docusate Sodium (Colace) 100 mg PO BID [facility] Stop: 06/28/18 08:59 Last Admin: 06/03/18 09:08 Dose: 100 mg Hydroxyzine HCl (Vistaril) 50 mg PO HSZ PRN PRN Reason: Insomnia Stop: 06/27/18 21:21 Hydroxyzine HCl (Vistaril) 25 mg PO Q4H PRN PRN Reason: Anxiety Stop: 06/27/18 21:21 Lisinopril (Zestril) 5 mg PO QAM [facility] Stop: 06/28/18 08:59 Last Admin: 06/03/18 09:08 Dose: 5 mg Magnesium Hydroxide (Milk Of Magnesia) 30 ml PO DAILY PRN PRN Reason: Heartburn Stop: 06/27/18 21:21 Menthol (Nice) 1 yazmin BUCCAL PRN PRN PRN Reason: Sore Throat Stop: 06/28/18 01:56 Last Admin: 06/02/18 18:13 Dose: 1 yazmin Propranolol HCl (Inderal) 10 mg PO 1200 [facility] Stop: 06/28/18 11:59 Last Admin: 06/02/18 12:59 Dose: 10 mg Simvastatin (Zocor) 20 mg PO HS [facility]I Stop: 06/29/18 21:59 Last Admin: 06/02/18 21:12 Dose: 20 mg Sodium Chloride ([place] Nasal) 1 - 2 sprays NA PRN PRN PRN Reason: Nasal Dryness/Congestion Stop: 06/27/18 21:21 Vitamin D (Vitamin D3) 1,000 units PO QAM [facility] Stop: 06/28/18 08:59 Last Admin: 06/03/18 09:08 Dose: 1,000 units Post Discharge Appointments Primary Care Physician Name Of Family Doctor: Dr. Tyler Primary Care Psychiatrist Name of Psychiatrist: Op[facility] Therapist Name of Therapist: Rose PERRY,[place] Therapist's Phone Number: Date of Therapist Appointment: 06/12/18 Time of Therapist Appointment: 10:00am No Experience Name of No Experience: Sylvia Castro Phone Number for No Experience: [phone] Date of Appointment with No Experience: 06/05/18 Time of Appointment with No Experience: 1:00pm Partial or Psych Rehab Name of Partial or Psych Rehab: [facility] Contact Information Discharge Discharge Address: [facility] [address] [place] [address] CPT Code CPT Code 25929
[2018-06-03] MEDS: PROPRANOLOL HCL 10 MG TAB PO SCH (12:50)
[2018-06-03] MEDS: clonazePAM 0.5 MG TAB PO SCH ×2 (12:50→21:23)
[2018-06-03] MEDS: AMITRIPTYLINE HCL 100 MG TAB PO SCH (21:22)
[2018-06-03] MEDS: SIMVASTATIN 20 MG TAB PO SCH (21:22)
[2018-06-03] MEDS: cloZAPine 100 MG TAB PO SCH (21:22)
[2018-06-03] MEDS: DIVALPROEX EXTENDED RELEASE 500 MG TAB PO SCH (21:22)
[2018-06-04] MEDS: DOCUSATE SODIUM 100 MG CAP PO SCH (08:38)
[2018-06-04] MEDS: LISINOPRIL 5 MG TAB PO SCH (08:38)
[2018-06-04] MEDS: CHOLECALCIFEROL 1,000 UNITS TAB PO SCH (08:38)
--- NOTE | 2018-06-04 08:51 | Discharge Summary ---
Date of Service June 04, 2018 History of Present Illness The patient is known to us from multiple previous hospitalizations, most recently on the [facility] in July 2016. He presented to the emergency room 2018 reporting suicidal ideation and a suicide attempt by cutting his antecubital area with a pocket knife the day prior. He endorsed worsening mood , increased sleep, decreased appetite, and poor self-care, as he was not showering or changing his clothes regularly. He did not feel safe at home, and agreed to voluntary admission. He said he had missed several days of his medications due to a respiratory illness. He had been seen in the ER 05/26/2018 for cough, had blood work, EKG, troponin, influenza, and chest x-ray, which were unremarkable for sinus tachycardia. He was diagnosed with viral bronchitis , and prescribed benzonatate, oral prednisone, and albuterol inhaler, and instructed to follow-up with his PCP, Dr. Liao (appointment is today). On my assessment, he reports mood has been worsening since 05/24/18, in the context of URI symptoms and "not feeling real well." He missed some of his normal activities (yoga), and when cough worsened, came to the ER 3 days ago. He did not take the oral prednisone, as he feared it would worsen his mood, but did use albuterol several times and thinks that it worsened his mood. He does think his cough is getting better. He says he "tried to off myself" Saturday 05/27 by cutting his arm with a pocket knife, but felt it wasn't going to work, so stopped. When he told his pillowcase cleaner the following day, he recommended he come to the ER. He describes acute onset of SI after returning from the ER visit Friday 05/26, stating mood "really nosedived." Denies any other triggers/ acute stressors, but felt he had "unrealistic expectations of myself" as far as being able to keep up with his routine while feeling sick - "I do everything like clockwork, and if I'm unable to keep up with it, it's a trainwreck." Notes he usually sticks to a regular schedule, attends all appointments and takes all meds as directed, and felt badly about himself when he was unable to maintain his routine. He reports poor appetite with 10 lbs weight loss in 1 month, not preparing food for himself, doing laundry, or bathing. He denies recent hallucinations, paranoia and delusions, but notes he has "loose associations of thought" at times where his thoughts get more confused, he has trouble identifying people (will see someone on the street and think it is a friend of his, but then realize he does not know the person). 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 He does not feel safe at home currently, and says he didn't follow his safety plan (contact his friends, outpatient providers, call crisis) in part because he was worried that he might "lose my privileges, I just moved into independent living in July." He has been on a stable med regimen for months-years. Physical Exam Psychiatric Orientation: alert, oriented x 3 and cooperative Apperance: appropriately dressed and appropriately groomed Eye Contact: good eye contact Motor Behavior: steady gait and station and no abnormal motor movements Speech: normal rate/rhythm/volume of speech Affect: euthymic affect Mood: no depressed mood, no anxious mood and no irritable mood Thought Process: goal directed thought process Thought Content: reality based without delusions Suicidal Thoughts: denies suicidal thoughts Homicidal Thoughts: denies homicidal thoughts Hallucinations: no auditory hallucinations and no visual hallucinations Cognition: recent memory grossly intact Estimated Intelligence: consistent with education level Insight: good insight Judgement: good judgement Vital Signs (Past 24 Hours) Last Vital Signs Temp 36.8 C 06/04/18 07:01 Pulse 83 06/04/18 07:02 Resp 16 06/04/18 07:01 BP 94/66 L 06/04/18 07:02 Pulse Ox 97 05/28/18 16:13 Principal Diagnosis schizoaffective disorder, bipolar type Psychiatric Data During his 7-day hospitalization, the patient was continued on his home medications, which he tolerated well. He was treated symptomatically for viral bronchitis, and reported improvement in symptoms. Follow-up was arranged with his PCP for the bronchitis and asymptomatic hematuria. Transition of Care Transition Of Care Record: was reviewed with the patient Advance Directives Advance Directives Information Provided: Yes Advance Directives: No Mental Health Advance Directive: No Advance Directives on File: No Living Will: No Power of Collating Machine Operator: No Advance Directives Reason:: Declines as Mental Health Visit. Risk Factors Assessment Male: Yes : No Do You Have Access To A Gun?: No Health Problems: Yes Mental Health Diagnoses: Yes Substance Use Disorders: No Previous Attempt: Yes Family History of Suicide: No Previous Psychiatric Hospitalization: Yes Hopelessness: No Smoker: No Protective Factors Assessment : No Responsible for Young Children: No Employed: No (Attempted to seek employment at [employer]) Stable Relationships: Yes Supportive Family: No Good Rapport with Provider: Yes Tobacco Cessation at Discharge Tobacco Cessation Medication Prescribed at Discharge: Not Applicable/Non-Smoker Total Time Total Time Spent: Greater Than 30 Minutes Total Time Includes: Examination of the patient, Discharge Planning and Medication Reconciliation Discharge Data Consultations 05/28/18 21:49 ED Decision to Admit Stat Lab Results 05/28/18 05/28/18 05/28/18 16:50 16:50 16:50 WBC 8.90 RBC 4.39 L Hgb 14.0 Hct 41.2 L MCV 93.8 MCH 31.9 MCHC 34.0 RDW Std Deviation 45.2 RDW Coeff of Levy 13.1 Plt Count 218 MPV 9.8 Immature Gran % (Auto) 1.7 Neut % (Auto) 60.4 Lymph % (Auto) 15.6 Gordon % (Auto) 22.1 Eos % (Auto) 0.0 Baso % (Auto) 0.2 Immature Gran # (Auto) 0.15 H Neut # (Auto) 5.37 Lymph # (Auto) 1.39 Gordon # (Auto) 1.97 H Eos # (Auto) 0.00 Baso # (Auto) 0.02 Absolute Nucleated RBC 0.02 H Nucleated RBC % (auto) 0.2 Sodium 136 Potassium 3.7 Chloride 105 Carbon Dioxide 28 Anion Gap 3.0 BUN 12 Creatinine 1.01 Est Cr Clr Drug Dosing 104.5 Est GFR ( Amer) 106.6 Est GFR (Non-Af Amer) 92.0 BUN/Creatinine Ratio 11.6 Glucose 67 L Fasting Glucose Calcium 8.6 Total Bilirubin 0.3 AST 26 ALT 54 Alkaline Phosphatase 68 Total Protein 7.8 Albumin 3.6 Globulin 4.2 H Albumin/Globulin Ratio 0.9 Triglycerides Cholesterol LDL Cholesterol, Calc VLDL Cholesterol, Calc HDL Cholesterol Cholesterol/HDL Ratio TSH 2.680 Urine Color Urine Appearance Urine pH Ur Specific Hydes Urine Protein Urine Glucose (UA) Urine Ketones Urine Blood Urine Nitrite Urine Bilirubin Urine Urobilinogen Ur Leukocyte Esterase Urine WBC (Auto) Urine RBC (Auto) U Hyaline Cast (Auto) U Epithel Cells (Auto) Urine Bacteria (Auto) Salicylates < 1.7 L Urine Opiates Screen Ur Methadone, Qual Acetaminophen < 2 L Urine Barbiturates Valproic Acid Ur Phencyclidine (PCP) U Amphetamin/Meth Scrn MDMA (Ecstasy) Screen U Benzodiazepines Scrn Ur Cocaine Metabolite U Marijuana (THC) Screen Ethyl Alcohol mg/dL 05/28/18 05/28/18 05/28/18 16:50 16:50 17:25 WBC RBC Hgb Hct MCV MCH MCHC RDW Std Deviation RDW Coeff of Levy Plt Count MPV Immature Gran % (Auto) Neut % (Auto) Lymph % (Auto) Gordon % (Auto) Eos % (Auto) Baso % (Auto) Immature Gran # (Auto) Neut # (Auto) Lymph # (Auto) Gordon # (Auto) Eos # (Auto) Baso # (Auto) Absolute Nucleated RBC Nucleated RBC % (auto) Sodium Potassium Chloride Carbon Dioxide Anion Gap BUN Creatinine Est Cr Clr Drug Dosing Est GFR ( Amer) Est GFR (Non-Af Amer) BUN/Creatinine Ratio Glucose Fasting Glucose Calcium Total Bilirubin AST ALT Alkaline Phosphatase Total Protein Albumin Globulin Albumin/Globulin Ratio Triglycerides Cholesterol LDL Cholesterol, Calc VLDL Cholesterol, Calc HDL Cholesterol Cholesterol/HDL Ratio TSH Urine Color Urine Appearance Urine pH Ur Specific Hydes Urine Protein Urine Glucose (UA) Urine Ketones Urine Blood Urine Nitrite Urine Bilirubin Urine Urobilinogen Ur Leukocyte Esterase Urine WBC (Auto) Urine RBC (Auto) U Hyaline Cast (Auto) U Epithel Cells (Auto) Urine Bacteria (Auto) Salicylates Urine Opiates Screen Neg Ur Methadone, Qual Neg Acetaminophen Urine Barbiturates Neg Valproic Acid 68 Ur Phencyclidine (PCP) Neg U Amphetamin/Meth Scrn Neg MDMA (Ecstasy) Screen Neg U Benzodiazepines Scrn Neg Ur Cocaine Metabolite Neg U Marijuana (THC) Screen Neg Ethyl Alcohol mg/dL < 3.0 05/28/18 05/29/18 05/30/18 17:25 10:22 07:10 WBC 7.73 RBC 4.56 L Hgb 14.7 Hct 42.4 MCV 93.0 MCH 32.2 MCHC 34.7 RDW Std Deviation 43.8 RDW Coeff of Levy 13.0 Plt Count 208 MPV 9.5 Immature Gran % (Auto) 1.8 Neut % (Auto) 43.9 Lymph % (Auto) 23.9 Gordon % (Auto) 30.0 Eos % (Auto) 0.0 Baso % (Auto) 0.4 Immature Gran # (Auto) 0.14 H Neut # (Auto) 3.39 Lymph # (Auto) 1.85 Gordon # (Auto) 2.32 H Eos # (Auto) 0.00 Baso # (Auto) 0.03 Absolute Nucleated RBC Nucleated RBC % (auto) Sodium Potassium Chloride Carbon Dioxide Anion Gap BUN Creatinine Est Cr Clr Drug Dosing Est GFR ( Amer) Est GFR (Non-Af Amer) BUN/Creatinine Ratio Glucose Fasting Glucose 114 H Calcium Total Bilirubin AST ALT Alkaline Phosphatase Total Protein Albumin Globulin Albumin/Globulin Ratio Triglycerides 179 H Cholesterol 155 LDL Cholesterol, Calc 83 VLDL Cholesterol, Calc 36 HDL Cholesterol 36 Cholesterol/HDL Ratio 4 TSH Urine Color Yellow Urine Appearance Clear Urine pH 7.0 Ur Specific Hydes 1.008 Urine Protein Negative Urine Glucose (UA) Negative Urine Ketones Negative Urine Blood 2+ H Urine Nitrite Negative Urine Bilirubin Negative Urine Urobilinogen Negative Ur Leukocyte Esterase Negative Urine WBC (Auto) 0 Urine RBC (Auto) 5-10 H U Hyaline Cast (Auto) 0 U Epithel Cells (Auto) 0-5 Urine Bacteria (Auto) Negative Salicylates Urine Opiates Screen Ur Methadone, Qual Acetaminophen Urine Barbiturates Valproic Acid Ur Phencyclidine (PCP) U Amphetamin/Meth Scrn MDMA (Ecstasy) Screen U Benzodiazepines Scrn Ur Cocaine Metabolite U Marijuana (THC) Screen Ethyl Alcohol mg/dL Hospital Course (1) Schizoaffective disorder: 05/29 -admitted voluntarily to the [facility] for safety. -Suicide checks. -Encourage group attendance and participation. Work on healthy coping skills and a discharge safety plan. -Family meeting. -Coordinate care with outpatient providers: reproduction production manager was present on admission, and we will request records from [facility]. -Resume home doses of psychotropics (clozapine, amitriptyline, divalproex, clonazepam, and propanolol), as patient reports he was stable when taking them regularly, but has missed several days recently due to URI. -Check fasting lipid profile and glucose for monitoring on an atypical antipsychotic, as the last one in our system was from July 2016. -CBC with differential checked on admission; ANC 5.37. 05/30 -met with pillowcase cleaner yesterday, and agreed to increase outpatient services (return to therapy at [facility], and mobile psych rehab). -Continue to work on outpatient safety plan and identifying barriers to following through on it. -Reviewed results of labs with patient: Fasting glucose elevated at 114, and lipid profile notable for elevated triglycerides 179. 05/31 -the patient has insight into his need for intensive outpatient treatment, and he also recognizes the importance of full adherence with psychiatric medications. -Is self-inflicted wound of the left antecubital region appears to be healing without evidence of exudate, swelling, inflammation, or induration. -The patient is able to describe past delusional believes, and does not demonstrate evidence of current delusional thinking. -He denies any suicidal ideations and tells me that should thoughts of self- harm reoccur he will "tell a friend, or my therapist." -Will continue his current psychiatric medications. 06/01 - Continue current regimen - Discharge planning and outpatient services - Improving insight - Safety plan needed for discharge 06/02 - Continue current regimen - Discharge planning and outpatient services - Safety plan needed for discharge 06/03 -Patient endorses intermittent suicidal thoughts, and is working on his safety plan, including barriers to utilizing it as an outpatient. -Coordinate with mobile psych rehab to arrange increased outpatient services upon discharge. -Needs appointment with PCP and psychiatrist for follow-up. (2) Acute bronchitis, viral: 05/29 -continue benzonatate 100 mg 3 times daily as needed cough, offer throat lozenges as needed, supportive care. -Reschedule follow-up appointment with PCP, Dr. Nuvia Liao, and follow-up with her after discharge. 05/31 - No complaints today. (3) Hypertension: 05/29 -continue home dose of lisinopril and monitor blood pressure - initially elevated in the ER, but now within normal limits. 05/31 - Blood pressure remains within normal limits (4) Hyperlipidemia: 05/29 -clarify home dose of simvastatin and continue here. 05/31 - Simvastatin 20 mg HS (5) Hematuria: 05/29 -2+ blood (5-10 RBC/hpf) in urinalysis on admission, and also had hematuria on his last 2 episodes of care in January and April 2017. The patient denies dysuria, flank pain, fever, vigorous exercise, and a history of nephrolithiasis or BPH. BUN, creatinine, and GFR are within normal limits, and he has been drinking normal amounts of fluids. He will need to follow-up with his PCP, Dr. Liao. 05/31 -- No complaints today. Post Discharge Appointments Primary Care Physician Name Of Family Doctor: Dr. Tyler [facility] Date of Appointment with PCP: 06/10/18 Time of Appointment with PCP: 12:45 Provider Appointment Comment: follow up for hematuria and bronchitis follow-up Psychiatrist Name of Psychiatrist: Opal Ye PA-C Psychiatrist's Phone Number: [phone] Date of Appointment with Psychiatrist: 06/07/18 Time of Appointment with Psychiatrist: 1pm Therapist Name of Therapist: Munira Jay Therapist's Phone Number: Date of Therapist Appointment: 06/12/18 Time of Therapist Appointment: 10:00am [employer] Core Transformer Assembler Name of [employer] Core Transformer Assembler: Sylvia Castro Phone Number for [employer] Transformer Assembler: [phone] Date of Appointment with [employer] Core Transformer Assembler: 06/05/18 Time of Appointment with [employer] Transformer Assembler: 1:00pm Partial or Psych Rehab Name of Partial or Psych Rehab: [facility] Phone Number of Partial or Psych Rehab: [phone] Date of Appointment at Partial or Psych Rehab: 06/07/18 Time of Appointment at Partial or Psych Rehab: 9am Partial or Psych Rehab Appointment Comment: Return & Fridays with plan to transition to site based for 1 day/week Smoking Cessation Counseling Tobacco Cessation Medication Prescribed at Discharge: Not Applicable/Non-Smoker Contact Information Discharge Discharge Address: [facility] [place] [address] [address] Discharge Plan Discharge Items Patient Disposition: Home - Self-Care Reason For Visit: SCHIZOAFFECTIVE BIPOLAR DISORDER Discharge Diagnosis: Schizoaffective disorder, bipolar type Discharge Goals: Improve disease control, Improve function and Therapeutic intervention Activity: Per 'Additional Instructions' section Non-emergency contact: Primary Care Provider, Psychiatrist, Therapist and Deburrer Call non-emergency contact if: you have any medication questions and your symptoms worsen Diet: Regular Addtl Provider Instructions: SPECIAL CARE INSTRUCTIONS: 1. Follow through with your scheduled aftercare appointments. If unable to keep an appointment, please call to reschedule. 2. Take your medication only as prescribed. Medication should not be changed or stopped without the approval of your doctor. In the event of worsening symptoms or concerns about side effects, contact your doctor immediately. 3. Utilize new healthy coping skills, anger management skills, and stress management skills learned during your hospitalization. Journal feelings and process them with a support person. Identify stressors or situations that may result in relapse, deterioration or inappropriate behaviors and develop a plan to deal with those issues. 4. If your coping skills are ineffective and you are in crisis, contact your outpatient providers for direction. If unable to reach your providers, please call the CAN HELP LINE AT or go to the closest Emergency Room. 5. Avoid alcohol and un-prescribed drugs. 6. You have been provided with the Mental Health Advance Directives Pamphlet for your review. AFTERCARE APPOINTMENTS: * Please call your insurance company prior to your scheduled appointment to confirm your aftercare providers are covered. Take your insurance information to your appointments. WHO TO CALL AND WHEN: Medical Emergencies: For questions or emergencies related to your hospital stay, please contact the Inpatient Behavioral Health Unit at [phone]. A dance teacher is on-call 04/12 for the Behavioral Health Unit for emergencies At any time you feel your situation is an emergency, you may also call 911 immediately. Your Doctors Instructions noted above were prepared by provider Soco Milner MD. Prescriptions: Continue simvastatin [Zocor] 20 mg Tablet 20 mg PO HS RF: 0 sennosides-docusate sodium [Senna with Docusate Sodium] 8.6-50 mg Tablet 1 tab PO BID PRN (Reason: Constipation) RF: 0 simethicone 80 mg Tablet,Chewable 80 mg PO TIDM PRN (Reason: flatulence) RF: 0 clozapine 100 mg Tablet 300 mg PO HS RF: 0 clonazepam 1 mg Tablet 0.5 mg PO BID RF: 0 propranolol 10 mg Tablet 10 mg PO DAILY RF: 0 divalproex 500 mg Tablet Extended Release 24 Hr 1,500 mg PO HS RF: 0 lisinopril 5 mg Tablet 5 mg PO QAM RF: 0 ibuprofen 600 mg Tablet 600 mg PO Q6H PRN (Reason: Fever Or Pain) RF: 0 amitriptyline 100 mg Tablet 100 mg PO HS RF: 0 cholecalciferol (vitamin D3) [Vitamin D3] 1,000 unit Capsule 1,000 units PO DAILY RF: 0 docusate sodium [Doc-Q-Lace] 100 mg Capsule 100 mg PO BID RF: 0 Visit Report Forms: [facility] Portal Stand-Alone Forms: [facility] Discharge Orders: Discharge Order (Routine); Ordered 06/04/18 Ordered By: Soco Milner Admission Data Admit Date/Time: 05/28/18 21:22 Attending Provider: Scoo Milner Admit Provider: Luis Fernando Cueto I Primary Care Provider: Nuvia Liao Other Providers: Soco Milner Service: Psychiatry Other Interventions: PSY Interdisciplinary Discharge Planning Last Done: 06/04/18 09:01 Pending Studies at Discharge: No
== END 2018-06-04 10:13 | disposition home or self-care (01) | DRG 885 ==
LOC: ED 16:11 → 3S 21:22

== ENCOUNTER 2019-03-16 23:44 | Inpatient (IN) ==
[2019-03-16] MEDS ORDERED: LORazepam 1 MG TAB SL STA (23:54)
[2019-03-17 00:02] LABS: Appearance Urine Clear (Clear); Bacteria Urine Automated Negative (Negative); Bilirubin Urine Negative (Negative); Blood Urine 1+ (Negative); Cast Urine Automated 0 /lpf (0-5); Color Urine Yellow; Epithelial Cell Urine Auto 0-5 /lpf (0-5); Glucose Urine UA Negative (Negative); Ketones Urine Negative (Negative); Leukocyte Esterase Urine Negative (Negative); Nitrite Urine Negative (Negative); Protein Urine Negative (Negative); RBC Urine Automated 0-4 /hpf (0-4); Specific Gravity Urine 1.006 (1.000-1.030); Urobilinogen Urine Negative (Negative); WBC Urine Automated 0 /hpf (0-5); pH Urine 6.5 (4.5-7.5)
[2019-03-17 00:18] LABS: Amphetamines+Metham, Urine Neg (Neg); Barbiturates, Urine Neg (Neg); Benzodiazepine, Urine Neg (Neg); Cocaine, Urine Neg (Neg); MDMA (Ecstacy), Urine Neg (Neg); Methadone, Urine Neg (Neg); Opiate, Urine Neg (Neg); Phencyclidine, Urine Neg (Neg)
[2019-03-17 00:43] LABS: Basophils # (auto) 0.04 K/uL (0-0.2); Basophils % (auto) 0.6 %; Hematocrit (blood only) 39.1 % (42-52); Hemoglobin 14.1 g/dL (14.0-18.0); Immature Granulocytes # (auto) 0.04 K/uL (0.00-0.02); Immature Granulocytes % (auto) 0.6 %; Lymphocytes # (auto) 1.88 K/uL (1.2-3.4); Lymphocytes % (auto) 28.3 %; Mean Corpuscular Hemoglobin 32.6 pg (25-34); Mean Corpuscular Hgb Conc 36.1 g/dL (32-36); Mean Corpuscular Volume 90.5 fL (80-100); Mean Platelet Volume 9.4 fL (7.4-10.4); Monocytes % (auto) 10.5 %; Neutrophils # (auto) 3.99 K/uL (1.4-6.5); Platelet Count 251 K/uL (130-400); RDW Coefficient of Variation 12.4 % (11.5-14.5); RDW Standard Deviation 41.5 fL (36.4-46.3); Red Blood Count 4.32 M/uL (4.7-6.1); White Blood Count 6.65 K/uL (4.8-10.8)
[2019-03-17 01:02] LABS: Alanine Aminotransferase 32 U/L (12-78); Albumin Level 3.8 gm/dl (3.4-5.0); Aspartate Aminotransferase 13 U/L (15-37); BUN Creatinine Ratio 12.7 (10-20); Blood Urea Nitrogen 13 mg/dl (7-18); Calcium 9.1 mg/dl (8.5-10.1); Carbon Dioxide 26 mmol/L (21-32); Chloride 104 mmol/L (98-107); Est GFR (African American) 108.4; Est GFR (Non-African American) 93.6; Glucose 101 mg/dl (70-99); Potassium 3.7 mmol/L (3.5-5.1); Sodium 137 mmol/L (136-145)
[2019-03-17 01:12] LABS: Acetaminophen < 2 ug/ml (10-30); Salicylate < 1.7 mg/dl (2.8-20)
[2019-03-17 01:13] LABS: Albumin Globulin Ratio 1.1 (0.9-2); Alkaline Phosphatase 57 U/L (45-117); Bilirubin,Total 0.3 mg/dl (0.2-1); Globulin 3.6 gm/dl (2.5-4.0); Total Protein 7.4 gm/dl (6.4-8.2)
--- NOTE | 2019-03-17 01:43 | Emergency Department Note ---
Entered by Issac Yu acting as a scribe for Eliazar Solis MD ED Provider Note Name: Faustino Becker Age: 43, male Arrives Via: EMS Informant: Patient CC: Suicidal ideations HPI: The patient is a 43 year old male who presents to the emergency department with complaints of constant suicidal ideations beginning a few days ago. The patient states that he has a history of anxiety, depression, and schizoaffective disorder. He notes that he does not have the money to get his car fixed, which has been causing him added stress. He reports that he has been having suicidal ideations, and he states that he has a plan to cut himself. He notes that he did not try to harm himself tonight. He reports that he has no motivation to eat/drink. The patient states that he has been taking his medication as prescribed, but he notes that he is going to run out of his medication tomorrow. He reports that he was last admitted 10 months ago, and he states that things are getting worse and that he would like to be admitted again. He denies any alcohol and drug use. ROS: See above HPI for pertinent positives & negatives. A total of 10 systems reviewed and were otherwise negative. Past Medical History: Anxiety, depression, schizoaffective disorder, hypertension Past Surgical History: None Family History: None Social History: Does not use drugs/alcohol, on disability. Home Medications: Clozapine, Depakote, Klonopin, Lisinopril, Propanalol Allergies: Please see allergy list Physical: Vitals: BP 152/103, Pulse 92, Resp 18, Temp 98.2, O2 Sat 95 Exam: GENERAL: Patient is well appearing and in no acute distress. EYES: No scleral icterus, unremarkable pupils. ENT: Mucous membranes moist, no nasal congestion. NECK: No masses appreciated, no meningismus, trachea is midline. RESPIRATORY: No dyspnea. Clear to auscultation and equal bilaterally. No wheeze, no rhonchi. CARDIOVASCULAR: Regular rate and rhythm. No murmurs, rubs, gallops appreciated. GASTROINTESTINAL: Abdomen soft, non-tender, no peritonitis. Bowel sounds positive. No masses appreciated. BACK: No midline tenderness, no CVA tenderness EXTREMITIES: Normal motion all extremities, no cyanosis, no edema. NEUROLOGIC: Alert and oriented, no acute motor or sensory deficits, no focal weakness, cranial nerves grossly intact. SKIN: No rash, no jaundice, no diaphoresis. PSYCH: Bizarre affect, admits depression, admits suicidal ideation with plan to cut self. ED Course: Prior Medical Record, Triage/Nursing Notes, Medications, Allergies reviewed by Me 2348: The patient was evaluated in room A7. A complete history and physical exam was performed. 0217: Upon reevaluation, the patient is stable. I discussed the findings and the treatment plan with the patient. He expresses agreement and understanding. The patient was voluntarily taken to [facility] for further management and care. Vital Signs: reviewed and remarkable for wnl Labs: Reviewed and remarkable for normal psych workup Interventions: Ativan 1mg SL Blood pressure: Elevated - [place] to be Situational. Disposition: Hospitalization [facility] Differentials: Differential: Mood Disorder, Overdose, Infectious, Electrolyte Abnormality, Cardiac, Hepatic, Endocrine, Toxicologic, Neurologic, amongst other pathologies Entertained. Medical Decision Makin yr old male with long psychiatric history wth schizoaffective disorder arrives with increasing thoughts of suicide. He has plan though no act of furtherance at this time. Does not feel outpatient safe and willing to come in on 201. Medically clear. Given Ativan to help calm down at his request. [facility] to evaluate and admit to their floor. Impression: Suicidal ideation schizophrenia Eliazar Solis MD The scribe's documentation has been prepared under my direction and personally reviewed by me in its entirety. I confirm that the note above accurately reflect s all work, treatment, procedures, and medical decision making performed by me. 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 Beliefs That Will Affect Care: None Feels Safe at Home: Yes Results & Data Vital Signs Vital Signs - 24 hr 03/16/19 23:56 03/17/19 01:55 Temperature 36.8 C Temperature Source Oral Sepsis Recent Fever Within 48 Hours No Sepsis Action Taken by Nursing No Action Required Pulse Rate 92 H Pulse Rate [Finger] 86 Respiratory Rate 18 20 Respiratory Effort / Characteristics Non-Labored Respiratory Depth Normal Blood Pressure 152/103 H Blood Pressure [Left Arm] 130/87 Blood Pressure Mean 119 Blood Pressure Mean [Left Arm] 101 Blood Pressure Position Lying Pulse Oximetry 95 96 Oxygen Delivery Method Room Air Room Air Home Medications Current Medication List: was personally reviewed by me Laboratory Data Attestation: I reviewed the patient's lab results. Result diagrams: 03/17/19 00:07 03/17/19 00:07 Lab Results 03/16/19 03/16/19 03/17/19 Range/Units 23:50 23:50 00:07 WBC 6.65 (4.8-10.8) K/uL RBC 4.32 L (4.7-6.1) M/uL Hgb 14.1 (14.0-18.0) g/dL Hct 39.1 L (42-52) % MCV 90.5 (80-100) fL MCH 32.6 (25-34) pg MCHC 36.1 H (32-36) g/dL RDW Std Deviation 41.5 (36.4-46.3) fL RDW Coeff of Levy 12.4 (11.5-14.5) % Plt Count 251 (130-400) K/uL MPV 9.4 (7.4-10.4) fL Immature Gran % (Auto) 0.6 % Neut % (Auto) 60.0 % Lymph % (Auto) 28.3 % [place] % (Auto) 10.5 % Eos % (Auto) 0.0 % Baso % (Auto) 0.6 % Immature Gran # (Auto) 0.04 H (0.00-0.02) K/uL Neut # (Auto) 3.99 (1.4-6.5) K/uL Lymph # (Auto) 1.88 (1.2-3.4) K/uL [place] # (Auto) 0.70 H (0.11-0.59) K/uL Eos # (Auto) 0.00 (0-0.5) K/uL Baso # (Auto) 0.04 (0-0.2) K/uL Sodium (136-145) mmol/L Potassium (3.5-5.1) mmol/L Chloride (98-107) mmol/L Carbon Dioxide (21-32) mmol/L Anion Gap (3-11) BUN (7-18) mg/dl Creatinine (0.6-1.4) mg/dl Est Cr Clr Drug Dosing Est GFR ( Amer) Est GFR (Non-Af Amer) BUN/Creatinine Ratio (10-20) Glucose (70-99) mg/dl Calcium (8.5-10.1) mg/dl Total Bilirubin (0.2-1) mg/dl AST (15-37) U/L ALT (12-78) U/L Alkaline Phosphatase (45-117) U/L Total Protein (6.4-8.2) gm/dl Albumin (3.4-5.0) gm/dl Globulin (2.5-4.0) gm/dl Albumin/Globulin Ratio (0.9-2) TSH (0.300-4.500) uIu/ml Urine Color Yellow Urine Appearance Clear (Clear) Urine pH 6.5 (4.5-7.5) Ur Specific [place] 1.006 (1.000-1.030) Urine Protein Negative (Negative) Urine Glucose (UA) Negative (Negative) Urine Ketones Negative (Negative) Urine Blood 1+ H (Negative) Urine Nitrite Negative (Negative) Urine Bilirubin Negative (Negative) Urine Urobilinogen Negative (Negative) Ur Leukocyte Esterase Negative (Negative) Urine WBC (Auto) 0 (0-5) /hpf Urine RBC (Auto) 0-4 (0-4) /hpf U Hyaline Cast (Auto) 0 (0-5) /lpf U Epithel Cells (Auto) 0-5 (0-5) /lpf Urine Bacteria (Auto) Negative (Negative) Salicylates (2.8-20) mg/dl Urine Opiates Screen Neg (Neg) Ur Methadone, Qual Neg (Neg) Acetaminophen (10-30) ug/ml Urine Barbiturates Neg (Neg) Ur Phencyclidine (PCP) Neg (Neg) U Amphetamin/Meth Scrn Neg (Neg) MDMA (Ecstasy) Screen Neg (Neg) U Benzodiazepines Scrn Neg (Neg) Ur Cocaine Metabolite Neg (Neg) U Marijuana (THC) Screen Neg (Neg) Ethyl Alcohol mg/dL (0-3) mg/dl 03/17/19 03/17/19 03/17/19 Range/Units 00:07 00:07 00:07 WBC (4.8-10.8) K/uL RBC (4.7-6.1) M/uL Hgb (14.0-18.0) g/dL Hct (42-52) % MCV (80-100) fL MCH (25-34) pg MCHC (32-36) g/dL RDW Std Deviation (36.4-46.3) fL RDW Coeff of Levy (11.5-14.5) % Plt Count (130-400) K/uL MPV (7.4-10.4) fL Immature Gran % (Auto) % Neut % (Auto) % Lymph % (Auto) % [place] % (Auto) % Eos % (Auto) % Baso % (Auto) % Immature Gran # (Auto) (0.00-0.02) K/uL Neut # (Auto) (1.4-6.5) K/uL Lymph # (Auto) (1.2-3.4) K/uL [place] # (Auto) (0.11-0.59) K/uL Eos # (Auto) (0-0.5) K/uL Baso # (Auto) (0-0.2) K/uL Sodium 137 (136-145) mmol/L Potassium 3.7 (3.5-5.1) mmol/L Chloride 104 (98-107) mmol/L Carbon Dioxide 26 (21-32) mmol/L Anion Gap 7.0 (3-11) BUN 13 (7-18) mg/dl Creatinine 0.99 (0.6-1.4) mg/dl Est Cr Clr Drug Dosing Not Reportable Est GFR ( Amer) 108.4 Est GFR (Non-Af Amer) 93.6 BUN/Creatinine Ratio 12.7 (10-20) Glucose 101 H (70-99) mg/dl Calcium 9.1 (8.5-10.1) mg/dl Total Bilirubin 0.3 (0.2-1) mg/dl AST 13 L (15-37) U/L ALT 32 (12-78) U/L Alkaline Phosphatase 57 (45-117) U/L Total Protein 7.4 (6.4-8.2) gm/dl Albumin 3.8 (3.4-5.0) gm/dl Globulin 3.6 (2.5-4.0) gm/dl Albumin/Globulin Ratio 1.1 (0.9-2) TSH 1.740 (0.300-4.500) uIu/ml Urine Color Urine Appearance (Clear) Urine pH (4.5-7.5) Ur Specific [place] (1.000-1.030) Urine Protein (Negative) Urine Glucose (UA) (Negative) Urine Ketones (Negative) Urine Blood (Negative) Urine Nitrite (Negative) Urine Bilirubin (Negative) Urine Urobilinogen (Negative) Ur Leukocyte Esterase (Negative) Urine WBC (Auto) (0-5) /hpf Urine RBC (Auto) (0-4) /hpf U Hyaline Cast (Auto) (0-5) /lpf U Epithel Cells (Auto) (0-5) /lpf Urine Bacteria (Auto) (Negative) Salicylates < 1.7 L (2.8-20) mg/dl Urine Opiates Screen (Neg) Ur Methadone, Qual (Neg) Acetaminophen < 2 L (10-30) ug/ml Urine Barbiturates (Neg) Ur Phencyclidine (PCP) (Neg) U Amphetamin/Meth Scrn (Neg) MDMA (Ecstasy) Screen (Neg) U Benzodiazepines Scrn (Neg) Ur Cocaine Metabolite (Neg) U Marijuana (THC) Screen (Neg) Ethyl Alcohol mg/dL < 3.0 (0-3) mg/dl Administered Medications Discontinued Medications Lorazepam (Ativan) 1 mg SL NOW STA Stop: 03/16/19 23:55 Last Admin: 03/17/19 00:05 Dose: 1 mg Documented by: [id number] Medical Decision Making Home Medications Current Medication List: was personally reviewed by me Laboratory Data Attestation: I reviewed the patient's lab results. Result diagrams: 03/17/19 00:07 03/17/19 00:07 Lab Results 03/16/19 03/16/19 03/17/19 Range/Units 23:50 23:50 00:07 WBC 6.65 (4.8-10.8) K/uL RBC 4.32 L (4.7-6.1) M/uL Hgb 14.1 (14.0-18.0) g/dL Hct 39.1 L (42-52) % MCV 90.5 (80-100) fL MCH 32.6 (25-34) pg MCHC 36.1 H (32-36) g/dL RDW Std Deviation 41.5 (36.4-46.3) fL RDW Coeff of Levy 12.4 (11.5-14.5) % Plt Count 251 (130-400) K/uL MPV 9.4 (7.4-10.4) fL Immature Gran % (Auto) 0.6 % Neut % (Auto) 60.0 % Lymph % (Auto) 28.3 % [place] % (Auto) 10.5 % Eos % (Auto) 0.0 % Baso % (Auto) 0.6 % Immature Gran # (Auto) 0.04 H (0.00-0.02) K/uL Neut # (Auto) 3.99 (1.4-6.5) K/uL Lymph # (Auto) 1.88 (1.2-3.4) K/uL [place] # (Auto) 0.70 H (0.11-0.59) K/uL Eos # (Auto) 0.00 (0-0.5) K/uL Baso # (Auto) 0.04 (0-0.2) K/uL Sodium (136-145) mmol/L Potassium (3.5-5.1) mmol/L Chloride (98-107) mmol/L Carbon Dioxide (21-32) mmol/L Anion Gap (3-11) BUN (7-18) mg/dl Creatinine (0.6-1.4) mg/dl Est Cr Clr Drug Dosing Est GFR ( Amer) Est GFR (Non-Af Amer) BUN/Creatinine Ratio (10-20) Glucose (70-99) mg/dl Calcium (8.5-10.1) mg/dl Total Bilirubin (0.2-1) mg/dl AST (15-37) U/L ALT (12-78) U/L Alkaline Phosphatase (45-117) U/L Total Protein (6.4-8.2) gm/dl Albumin (3.4-5.0) gm/dl Globulin (2.5-4.0) gm/dl Albumin/Globulin Ratio (0.9-2) TSH (0.300-4.500) uIu/ml Urine Color Yellow Urine Appearance Clear (Clear) Urine pH 6.5 (4.5-7.5) Ur Specific [place] 1.006 (1.000-1.030) Urine Protein Negative (Negative) Urine Glucose (UA) Negative (Negative) Urine Ketones Negative (Negative) Urine Blood 1+ H (Negative) Urine Nitrite Negative (Negative) Urine Bilirubin Negative (Negative) Urine Urobilinogen Negative (Negative) Ur Leukocyte Esterase Negative (Negative) Urine WBC (Auto) 0 (0-5) /hpf Urine RBC (Auto) 0-4 (0-4) /hpf U Hyaline Cast (Auto) 0 (0-5) /lpf U Epithel Cells (Auto) 0-5 (0-5) /lpf Urine Bacteria (Auto) Negative (Negative) Salicylates (2.8-20) mg/dl Urine Opiates Screen Neg (Neg) Ur Methadone, Qual Neg (Neg) Acetaminophen (10-30) ug/ml Urine Barbiturates Neg (Neg) Ur Phencyclidine (PCP) Neg (Neg) U Amphetamin/Meth Scrn Neg (Neg) MDMA (Ecstasy) Screen Neg (Neg) U Benzodiazepines Scrn Neg (Neg) Ur Cocaine Metabolite Neg (Neg) U Marijuana (THC) Screen Neg (Neg) Ethyl Alcohol mg/dL (0-3) mg/dl 03/17/19 03/17/19 03/17/19 Range/Units 00:07 00:07 00:07 WBC (4.8-10.8) K/uL RBC (4.7-6.1) M/uL Hgb (14.0-18.0) g/dL Hct (42-52) % MCV (80-100) fL MCH (25-34) pg MCHC (32-36) g/dL RDW Std Deviation (36.4-46.3) fL RDW Coeff of Levy (11.5-14.5) % Plt Count (130-400) K/uL MPV (7.4-10.4) fL Immature Gran % (Auto) % Neut % (Auto) % Lymph % (Auto) % [place] % (Auto) % Eos % (Auto) % Baso % (Auto) % Immature Gran # (Auto) (0.00-0.02) K/uL Neut # (Auto) (1.4-6.5) K/uL Lymph # (Auto) (1.2-3.4) K/uL [place] # (Auto) (0.11-0.59) K/uL Eos # (Auto) (0-0.5) K/uL Baso # (Auto) (0-0.2) K/uL Sodium 137 (136-145) mmol/L Potassium 3.7 (3.5-5.1) mmol/L Chloride 104 (98-107) mmol/L Carbon Dioxide 26 (21-32) mmol/L Anion Gap 7.0 (3-11) BUN 13 (7-18) mg/dl Creatinine 0.99 (0.6-1.4) mg/dl Est Cr Clr Drug Dosing Not Reportable Est GFR ( Amer) 108.4 Est GFR (Non-Af Amer) 93.6 BUN/Creatinine Ratio 12.7 (10-20) Glucose 101 H (70-99) mg/dl Calcium 9.1 (8.5-10.1) mg/dl Total Bilirubin 0.3 (0.2-1) mg/dl AST 13 L (15-37) U/L ALT 32 (12-78) U/L Alkaline Phosphatase 57 (45-117) U/L Total Protein 7.4 (6.4-8.2) gm/dl Albumin 3.8 (3.4-5.0) gm/dl Globulin 3.6 (2.5-4.0) gm/dl Albumin/Globulin Ratio 1.1 (0.9-2) TSH 1.740 (0.300-4.500) uIu/ml Urine Color Urine Appearance (Clear) Urine pH (4.5-7.5) Ur Specific [place] (1.000-1.030) Urine Protein (Negative) Urine Glucose (UA) (Negative) Urine Ketones (Negative) Urine Blood (Negative) Urine Nitrite (Negative) Urine Bilirubin (Negative) Urine Urobilinogen (Negative) Ur Leukocyte Esterase (Negative) Urine WBC (Auto) (0-5) /hpf Urine RBC (Auto) (0-4) /hpf U Hyaline Cast (Auto) (0-5) /lpf U Epithel Cells (Auto) (0-5) /lpf Urine Bacteria (Auto) (Negative) Salicylates < 1.7 L (2.8-20) mg/dl Urine Opiates Screen (Neg) Ur Methadone, Qual (Neg) Acetaminophen < 2 L (10-30) ug/ml Urine Barbiturates (Neg) Ur Phencyclidine (PCP) (Neg) U Amphetamin/Meth Scrn (Neg) MDMA (Ecstasy) Screen (Neg) U Benzodiazepines Scrn (Neg) Ur Cocaine Metabolite (Neg) U Marijuana (THC) Screen (Neg) Ethyl Alcohol mg/dL < 3.0 (0-3) mg/dl MDM Narrative Discharge Plan Visit Data Chief Complaint: Mental Health Evaluation Stated Complaint: MENTAL HEALTH ED Provider: Eliazar Solis Discharge Problem: Suicidal ideation, Schizoaffective disorder Patient Disposition: Transfer Behavioral Health Fac Discharge Instructions Interventions: ED Discharge Assessment Last Done: 03/17/19 02:25 Discharge Problem: Schizoaffective disorder Qualifiers: Schizoaffective disorder type: depressive Qualified Code(s): F25.1 - Schizoaffective disorder, depressive type The scribe's documentation has been prepared under my direction and personally reviewed by me in its entirety. I confirm that the note above accurately reflects all work, treatment, procedures, and medical decision making performed by me.
[2019-03-17] MEDS ORDERED: ALUMINUM/MAGNESIUM SUSP 30 ML UDC PO PRN (02:38)
[2019-03-17] MEDS ORDERED: MAGNESIUM HYDROXIDE SUSP 30 ML UDC PO PRN (02:38)
[2019-03-17] MEDS ORDERED: SODIUM CHLORIDE 0.65% NA SOLN 45 ML (OCEAN) PRN (02:38)
[2019-03-17] MEDS ORDERED: BISMUTH SUBSALICYLATE PER ML OMNICELL CHARGE PO PRN (02:38)
[2019-03-17] MEDS: DOCUSATE SODIUM 100 MG CAP PO SCH ×2 (08:49→21:54)
[2019-03-17] MEDS: clonazePAM 0.5 MG TAB PO SCH ×2 (08:49→21:53)
[2019-03-17] MEDS: LISINOPRIL 5 MG TAB PO SCH (08:50)
[2019-03-17] MEDS: CHOLECALCIFEROL 1,000 UNITS TAB PO SCH (08:50)
[2019-03-17] MEDS ORDERED: PROPRANOLOL HCL 10 MG TAB PO SCH (09:00)
--- NOTE | 2019-03-17 09:12 | History & Physical ---
Date of Service March 17, 2019 Impression / Recommendations Impression 43-year-old male with a history of schizoaffective disorder who presents with worsening mood and suicidal ideation in the context financial stressors, with inability to afford to get his car fixed, which limits his transportation and ability to get around. He has been intermittently struggling for the past couple of months, with difficulty completing ADLs at times (food shopping and preparation). He has missed doses of his medication at times, although he recognizes that they are helpful and that symptoms worsen when this happens. He thinks his current medication regimen is helpful, so we will continue it unchanged while gathering supplemental information. He would like to work on his coping skills, and typically benefits from the milieu and therapy on the unit. Inpatient treatment is medically necessary due to the severity of his symptoms and risk for suicide if discharged. (1) Suicidal ideation: Continue voluntary hospitalization; suicide checks for safety. Encourage participation in unit groups and programming. Work on healthy coping skills and discharge safety plan. Family meeting as appropriate. Present on Admission?: Yes (2) Schizoaffective disorder: 03/17 -continue home psychotropics including clozapine 300 mg at bedtime, amitriptyline 100 mg at bedtime, clonazepam 0.5 mg twice daily, and Depakote 1500 mg at bedtime. Check Depakote trough level today. -CBC on admission showed ANC of 3.99. -Fasting lipid profile from 05/2018 notable for triglycerides 179, otherwise within normal limits. Fasting glucose 114. -Coordinate care with outpatient, Kendal Ye, at [facility], [facility], [facility], and [facility]. Schizoaffective disorder type: depressive Qualified Code(s): F25.1 - Schizoaffective disorder, depressive type Present on Admission?: Yes (3) Anxiety: Hydroxyzine as needed. Patient states that anxiety symptoms have been well controlled recently. Present on Admission?: Yes (4) Hematuria: 03/17 -chronic (multiple UAs with occult blood dating back >2 yrs). Denies current urinary symptoms. Follow-up with PCP, Dr. Nuvia Liao, as needed. Present on Admission?: Yes (5) Hyperlipidemia: Continue home dose of simvastatin 20 mg at bedtime. Present on Admission?: Yes (6) Hypertension: Continue home doses of lisinopril 5 mg daily and propanolol 10 mg daily. Present on Admission?: Yes Inventory Assets Strengths: Stable housing, extensive outpatient services Needs: Coping skills Risk Factors Assessment Male: Yes : Yes Do You Have Access To A Gun?: No Health Problems: Yes Mental Health Diagnoses: Yes Substance Use Disorders: No Previous Attempt: Yes Family History of Suicide: No Previous Psychiatric Hospitalization: Yes Hopelessness: Yes Smoker: No Protective Factors Assessment : No Responsible for Young Children: No Employed: No (unemployed) Stable Relationships: Yes Supportive Family: No Good Rapport with Provider: Yes Psychiatric History Identifying Data ROGER SCHMIDT is a 43-year-old M who currently lives alone in [place], has a history of schizoaffective disorder bipolar type, and was admitted on 03/17/19 02:12 on a 201 voluntary commitment for suicidal ideation with a plan to stab himself. Chief Complaint "I have to call my manager lan". History of Present Illness Patient is known to us from multiple previous hospitalizations. He has been seen in the ER several times over the past 3 months for psychiatric symptoms; an 12/2018 he presented with paranoia in the setting of medication noncompliance for a few days, and was discharged home. He was seen 03/04/2019 with confusion, thought he had been taking his medications incorrectly, and reported difficulty eating and decreased interest over the past month, and was again discharged home. Yesterday, 03/16/2019, he presented to the ER with suicidal ideation for the past few days, in the setting of financial strain. He had been seen by can help in the community, and turned over a knife at his home, reporting he was concerned he would hurt himself or the can help worker. He said he was unemployed and did not have money to get his car fixed, was unable to purchase food, and felt overwhelmed and hopeless. He said he had no motivation to eat or drink, and reported suicidal thoughts with a plan to cut himself, and did not feel safe outside of the hospital. Labs were notable for UA with 1+ blood (present for at least the last 10 months per records), red blood cells 4.32 and hematocrit 39.1; drug screen negative, TSH normal. On my assessment today, the patient was initially difficult to arouse from sleep, and then stated he needed to make some phone calls before coming to the interview room. He states he has been very worried about running out of his medications, as he gets them through a mail order pharmacy and is working with [facility], and was about to run out and didn't think they would come in time. He reports low energy, poor appetite, and low mood for a couple of months. Sleep has been good, and he denies changes in weight. The primary trigger was that his father sent him money to get his car inspected, but he then found out it needed $1,000 worth of work to pass inspection, which he doens't have. He is thinking about using the [facility] to get to [facility], as he has been going twice a week. SI started 2-3 days ago, and he reports "I wanted to end," stating he "just wanted to be no more, and if that meant killing myself, that's how I felt." He called his friends and [facility], who arranged for him to come to the hospital. He states he doesn't feel safe at home, feared he was going to cut himself, but feels safe here. He would like to work on "grocery shopping techniques," noting he has difficulty going out to get food, which he attributes to lack of motivation. He also wants to work on ways to deal with hopelessness and suicidal thoughts. He does have a returned case inspector who sometimes helps him with ADLs. He notes appetite is good and he eats well here when food is prepared for him. Another exacerbating factor is that he injured his knee a couple of months ago which has caused pain and prevented him from dancing, which he had been doing weekly. He denies significant anxiety, and states he last had psychotic symptoms a week or so again, "thought people looked like someone else, but I knew it wasn't them." He denies recent changes in his medications and thinks they are helpful. He states he just saw Kendal SIMONS last week and was doing well, so no changes were made. Past Psychiatric History Current Psychiatric Diagnosis: Schizoaffective disorder, bipolar Type Outpatient Services: KRISTYN Cruz, at [facility] psych rehab Titi Castro case operator through [facility] Previous Psych Admissions: Many hospitalizations starting at age 19. [facility] in [place] from [id number]. [place], [place], [place], and [place] in [place]. [facility] 05/2018, 07/2016, 10/2014, 03/2011, 06/2007, 12/2006, 03/2006, 06/2005, 12/2003, 03/2002, 05/2000, 02/1999. Do You Have Access To A Gun?: No History of Previous Suicide Attempt: Yes Describe Attempts in the Past: 2 prior attempts by cutting arm and wrist, overdose Past Medication Trials: Include but not limited to: Chlorpromazine -rage Perphenazine -ineffective Aripiprazole -strange dreams Risperidone -removed clothing Ziprasidone -2 short acting Hydroxyzine -ineffective Additional Notes: Suicide attempt by overdose on 30 clonazepam and cutting arm in 2009. Per records, also attempted suicide when hospitalized at [facility]. Allergies Allergy/AdvReac Type Severity Reaction Status Date / Time aripiprazole [From Abilify] AdvReac Mild Insomnia Verified 03/17/19 00:21 albuterol AdvReac Depression Verified 03/17/19 00:22 atorvastatin AdvReac Unknown Unverified 03/17/19 00:24 chlorpromazine AdvReac Unknown Unverified 03/17/19 00:26 [From Thorazine] diphenhydramine AdvReac Unknown Unverified 03/17/19 00:24 guanfacine AdvReac Unknown Unverified 03/17/19 00:24 lithium AdvReac Unknown Unverified 03/17/19 00:25 olanzapine AdvReac Unknown Unverified 03/17/19 00:27 quetiapine [From Seroquel] AdvReac Unknown Unverified 03/17/19 00:26 risperidone AdvReac Unknown Unverified 03/17/19 00:26 Home Medications Home Medications Medication Instructions Recorded Confirmed Type amitriptyline 100 mg PO HS 03/17/19 03/17/19 History cholecalciferol (vitamin D3) 1,000 unit PO DAILY 03/17/19 03/17/19 History [Vitamin D3] clonazepam [Klonopin] 0.5 mg PO BID 03/17/19 03/17/19 History clozapine [Clozaril] 300 mg PO HS 03/17/19 03/17/19 History divalproex [Depakote ER] 1,500 mg PO HS 03/17/19 03/17/19 History docusate sodium [DOK] 100 mg PO BID 03/17/19 03/17/19 History lisinopril 5 mg PO DAILY 03/17/19 03/17/19 History propranolol 10 mg PO DAILY 03/17/19 03/17/19 History simvastatin [Zocor] 20 mg PO HS 03/17/19 03/17/19 History Family History Family History of: Depression, Anxiety, Psychosis/ThoughtDisorder, Alcoholism/Drug Abuse (Father with alcohol use disorder), Bipolar (Mother) and Doesn't Know Family Mental Health History Comment: Mother has "ODD" Alcohol History Hx of Alcohol Use Over the Past 12 Months: No Smoking Use Have You Smoked or Used Tobacco Products in the Last 30 Days: No Substance History Hx of Prescription Med Misuse Over the Past 12 Months: No Hx of Over the Counter Med Misuse Over the Past 12 Months: No Hx of Inhalent Misuse Over the Past 12 Months: No Hx of Organic Substance Use Over the Past 12 Months: No Hx of Illegal Substances/Street Drug Use Over Past 12 Months: No Problems as a Result of Past Substance Use: None Identified Personal History Living Arrangements: Apartment Living Arrangements Comments: Alone in [place] Born In: [place], [place] Childhood: Raised in [place], [place]. Reports developmental milestones were on time. Only child, parents . Father lives in [place] with his 3rd . Mother lives in [facility]. Strained relationship with parents. Highest Grade Completed: High School Graduate Employment Status: Unemployed Marital Status: Single Number Of Children: 0 Beliefs That Will Affect Care: None Hx Legal Problems: No Hx Traumatic Life Events: No Patient History Medical History Hematuria Hyperlipidemia Anxiety (Chronic) Hypertension (Chronic) Schizoaffective disorder (Chronic) Overdose (Resolved) Depression Acute bronchitis, viral (Inactive) Surgical History No pertinent past surgical history Social History Preferred Language: [place] Communication Ability: Effective Educational Fundraising Director Required: No Beliefs That Will Affect Care: None Feels Safe at Home: Yes Review of Systems Review of Systems: All systems reviewed & are unremarkable except as noted in HPI & below Physical Exam Psychiatric: Orientation: alert and cooperative Apperance: + disheveled and appeared stated age just out of bed, dressed in tshirt and pajama pants Eye Contact: good eye contact Motor Behavior: steady gait and station and no abnormal motor movements Speech: normal rate/rhythm/volume of speech Affect: + depressed affect, + constricted affect and mood congruent with affect Mood: + depressed mood Thought Process: + tangential thought process (at times) Thought Content: reality based without delusions Suicidal Thoughts: + reports suicidal thoughts Homicidal Thoughts: denies homicidal thoughts Cognition: attention grossly intact and language grossly intact Insight: + fair insight Judgement: + fair judgement Vital Signs (Past 24 Hours): Last Vital Signs Temp 36.8 C 03/16/19 23:56 Pulse 86 03/17/19 02:42 Resp 20 03/17/19 02:42 BP 130/87 03/17/19 02:42 Pulse Ox 96 03/17/19 01:55 Exam Statement: A physical exam was performed in the ER prior to admission to the unit by Dr. Eliazar Solis. I accept that physical as correct/medical clearance for the inpatient physical exam. Results & Data Laboratory Results Laboratory Results - last 24 hr 03/16/19 03/16/19 03/17/19 23:50 23:50 00:07 WBC 6.65 RBC 4.32 L Hgb 14.1 Hct 39.1 L MCV 90.5 MCH 32.6 MCHC 36.1 H RDW Std Deviation 41.5 RDW Coeff of Levy 12.4 Plt Count 251 MPV 9.4 Immature Gran % (Auto) 0.6 Neut % (Auto) 60.0 Lymph % (Auto) 28.3 [place] % (Auto) 10.5 Eos % (Auto) 0.0 Baso % (Auto) 0.6 Immature Gran # (Auto) 0.04 H Neut # (Auto) 3.99 Lymph # (Auto) 1.88 [place] # (Auto) 0.70 H Eos # (Auto) 0.00 Baso # (Auto) 0.04 Sodium Potassium Chloride Carbon Dioxide Anion Gap BUN Creatinine Est Cr Clr Drug Dosing Est GFR ( Amer) Est GFR (Non-Af Amer) BUN/Creatinine Ratio Glucose Calcium Total Bilirubin AST ALT Alkaline Phosphatase Total Protein Albumin Globulin Albumin/Globulin Ratio TSH Urine Color Yellow Urine Appearance Clear Urine pH 6.5 Ur Specific [place] 1.006 Urine Protein Negative Urine Glucose (UA) Negative Urine Ketones Negative Urine Blood 1+ H Urine Nitrite Negative Urine Bilirubin Negative Urine Urobilinogen Negative Ur Leukocyte Esterase Negative Urine WBC (Auto) 0 Urine RBC (Auto) 0-4 U Hyaline Cast (Auto) 0 U Epithel Cells (Auto) 0-5 Urine Bacteria (Auto) Negative Salicylates Urine Opiates Screen Neg Ur Methadone, Qual Neg Acetaminophen Urine Barbiturates Neg Ur Phencyclidine (PCP) Neg U Amphetamin/Meth Scrn Neg MDMA (Ecstasy) Screen Neg U Benzodiazepines Scrn Neg Ur Cocaine Metabolite Neg U Marijuana (THC) Screen Neg Ethyl Alcohol mg/dL 03/17/19 03/17/19 03/17/19 00:07 00:07 00:07 WBC RBC Hgb Hct MCV MCH MCHC RDW Std Deviation RDW Coeff of [place] Plt Count MPV Immature Gran % (Auto) Neut % (Auto) Lymph % (Auto) [place] % (Auto) Eos % (Auto) Baso % (Auto) Immature Gran # (Auto) Neut # (Auto) Lymph # (Auto) [place] # (Auto) Eos # (Auto) Baso # (Auto) Sodium 137 Potassium 3.7 Chloride 104 Carbon Dioxide 26 Anion Gap 7.0 BUN 13 Creatinine 0.99 Est Cr Clr Drug Dosing Not Reportable Est GFR ( Amer) 108.4 Est GFR (Non-Af Amer) 93.6 BUN/Creatinine Ratio 12.7 Glucose 101 H Calcium 9.1 Total Bilirubin 0.3 AST 13 L ALT 32 Alkaline Phosphatase 57 Total Protein 7.4 Albumin 3.8 Globulin 3.6 Albumin/Globulin Ratio 1.1 TSH 1.740 Urine Color Urine Appearance Urine pH Ur Specific [place] Urine Protein Urine Glucose (UA) Urine Ketones Urine Blood Urine Nitrite Urine Bilirubin Urine Urobilinogen Ur Leukocyte Esterase Urine WBC (Auto) Urine RBC (Auto) U Hyaline Cast (Auto) U Epithel Cells (Auto) Urine Bacteria (Auto) Salicylates < 1.7 L Urine Opiates Screen Ur Methadone, Qual Acetaminophen < 2 L Urine Barbiturates Ur Phencyclidine (PCP) U Amphetamin/Meth Scrn MDMA (Ecstasy) Screen U Benzodiazepines Scrn Ur Cocaine Metabolite U Marijuana (THC) Screen Ethyl Alcohol mg/dL < 3.0 Current Inpatient Medications Current Inpatient Medications: Current Inpatient Medications Acetaminophen (Tylenol) 650 mg PO Q4H PRN PRN Reason: Headache or Minor Fever Stop: 04/16/19 02:37 Al Hydrox/Mg Hydrox/Simethicone (Maalox) 30 ml PO Q4H PRN PRN Reason: GI Upset Stop: 04/16/19 02:37 Amitriptyline HCl (Elavil) 100 mg PO HS [facility] Stop: 04/16/19 21:59 Bismuth Subsalicylate (Kaopectate) 15 ml PO PRN PRN PRN Reason: Loose Stool Stop: 04/16/19 02:37 Clonazepam (Klonopin) 0.5 mg PO BID [facility] Stop: 04/16/19 08:59 Clozapine (Clozapine) 300 mg PO HS [facility] Stop: 04/16/19 21:59 Divalproex Sodium (Depakote Extended Release) 1,500 mg PO HS [facility] Stop: 04/16/19 21:59 Docusate Sodium (Colace) 100 mg PO BID [facility] Stop: 04/16/19 08:59 Hydroxyzine HCl (Vistaril) 50 mg PO HSZ PRN PRN Reason: Insomnia Stop: 04/16/19 02:37 Hydroxyzine HCl (Vistaril) 25 mg PO Q4H PRN PRN Reason: Anxiety Stop: 04/16/19 02:37 Lisinopril (Zestril) 5 mg PO DAILY [facility] Stop: 04/16/19 08:59 Magnesium Hydroxide (Milk Of Magnesia) 30 ml PO DAILY PRN PRN Reason: Constipation Stop: 04/16/19 02:37 Propranolol HCl (Inderal) 10 mg PO DAILY [facility] Stop: 04/16/19 08:59 Simvastatin (Zocor) 20 mg PO HS [facility] Stop: 04/16/19 21:59 Sodium Chloride (Sweet Grass Nasal) 1 - 2 sprays NA PRN PRN PRN Reason: Nasal Dryness/Congestion Stop: 04/16/19 02:37 Vitamin D (Vitamin D3) 1,000 units PO DAILY [facility] Stop: 04/16/19 08:59
[2019-03-17] MEDS ORDERED: Nursing to Pharmacy Communication ONE (09:35)
[2019-03-17] MEDS: PROPRANOLOL HCL 10 MG TAB PO SCH (12:44)
[2019-03-17] MEDS: ACETAMINOPHEN 325 MG TAB PO PRN (19:09)
[2019-03-17] MEDS: cloZAPine 100 MG TAB PO SCH (21:53)
[2019-03-17] MEDS: SIMVASTATIN 20 MG TAB PO SCH (21:53)
[2019-03-17] MEDS: AMITRIPTYLINE HCL 100 MG TAB PO SCH (21:53)
[2019-03-17] MEDS: DIVALPROEX EXTENDED RELEASE 500 MG TAB PO SCH (21:53)
[2019-03-18] MEDS: DOCUSATE SODIUM 100 MG CAP PO SCH ×2 (08:18→21:53)
[2019-03-18] MEDS: clonazePAM 0.5 MG TAB PO SCH ×2 (08:18→21:53)
[2019-03-18] MEDS: CHOLECALCIFEROL 1,000 UNITS TAB PO SCH (08:19)
[2019-03-18] MEDS: LISINOPRIL 5 MG TAB PO SCH (08:19)
--- NOTE | 2019-03-18 11:30 | Psychiatric Progress Note ---
Date of Service March 18, 2019 Impression / Recommendations Impression 43-year-old male with a history of schizoaffective disorder who presents with worsening mood and suicidal ideation in the context financial stressors, with inability to afford to get his car fixed, which limits his transportation and ability to get around. He has been intermittently struggling for the past couple of months, with difficulty completing ADLs at times (food shopping and preparation). He has missed doses of his medication at times, although he recognizes that they are helpful and that symptoms worsen when this happens. He thinks his current medication regimen is helpful, so we will continue it unchanged while gathering supplemental information. He would like to work on his coping skills, and typically benefits from the milieu and therapy on the unit. Inpatient treatment is medically necessary due to the severity of his symptoms and risk for suicide if discharged. (1) Suicidal ideation: Continue voluntary hospitalization; suicide checks for safety. Encourage participation in unit groups and programming. Work on healthy coping skills and discharge safety plan. Family meeting as appropriate. 03/18 - Denies SI (2) Schizoaffective disorder: 03/17 -continue home psychotropics including clozapine 300 mg at bedtime, amitriptyline 100 mg at bedtime, clonazepam 0.5 mg twice daily, and Depakote 150 0 mg at bedtime. Check Depakote trough level today. -CBC on admission showed ANC of 3.99. -Fasting lipid profile from 05/2018 notable for triglycerides 179, otherwise within normal limits. Fasting glucose 114. -Coordinate care with outpatient, Kendal Ye, at [facility], [facility], and [facility]. 03/18 - Continue home medication regimen, patient does not feel he requires medica tion adjustments - Depakote level returned, WNL at 70 - Coordinate discharge planning with outpatient CM, and other providers (3) Anxiety: Hydroxyzine as needed. Patient states that anxiety symptoms have been well controlled recently. (4) Hematuria: 03/17 -chronic (multiple UAs with occult blood dating back >2 yrs). Denies current urinary symptoms. Follow-up with PCP, Dr. Nuvia Liao, as needed. (5) Hyperlipidemia: Continue home dose of simvastatin 20 mg at bedtime. (6) Hypertension: Continue home doses of lisinopril 5 mg daily and propanolol 10 mg daily. Inventory Assets Strengths: Stable housing, extensive outpatient services Needs: Coping skills Risk Factors Assessment Male: Yes : Yes Do You Have Access To A Gun?: No Health Problems: Yes Mental Health Diagnoses: Yes Substance Use Disorders: No Previous Attempt: Yes Family History of Suicide: No Previous Psychiatric Hospitalization: Yes Hopelessness: Yes Smoker: No Protective Factors Assessment : No Responsible for Young Children: No Employed: No (unemployed) Stable Relationships: Yes Supportive Family: No Good Rapport with Provider: Yes Interval History Identifying Information ROGER SCHMIDT is a 43-year-old M who currently lives alone in [place], has a history of schizoaffective disorder bipolar type, and was admitted on 03/17/19 02:12 on a 201 voluntary commitment for suicidal ideation with a reported plan to stab himself. Chief Complaint "Tired today." Review of Systems Notes Constitutional: reports fatigue today, mildly reduced appetite Cardiovascular: denied Respiratory: denied Gastrointestinal: denied Neurological: denied Psychiatric: denies symptoms other than stated above Total of at least 10 systems reviewed, pertinent positives as above and in HPI. Sleep Information Total Hours of Sleep: 7.25 Sleep Comments: admitted to the [facility] at 0228-he was asleep by 0300 rounds. Meal Information Percent Meal Consumed - Breakfast: 100 Percent Meal Consumed - Lunch: 75 Percent Meal Consumed - Dinner: 100 Subjective Subjective Patient was seen & assessed and interval progress reviewed with nursing and social work. Staff reports the patient has been opening up about feel overwhelm ed prior to admission. Verbalizing stressors related to finances, running out of medications, and other concerns. Pt was seen today to assess progress since admission. He states he is doing better today, and shares with this provider some of the stressors that led to his admission. He states, "I couldn't afford to get my car inspected, and I wasn't eating." He states his motivation was limited, and reports "paranoia" about running out of medications. Pt does share with this provider that he called [facility], after recognizing he was feeling "suicidal" - handing them his pocket knife after "they didn't show up with police, I was worried that meant they wouldn't bring me in." He denies suicidality today, but admits to ongoing anxiety related to outpatient stressors. Pt does share with this provider that he is not interested in returning to a supportive living environment, as he feels he can manage things independently. He is proud that he now has a "smart phone", and states that he talks to "[employer]" regularly. "She says 'Sweet Dreams, Max.' But she doesn't know what suicidal means." Pt verbalizes recognition that he cannot rely on [employer] for safety concerns and mental health needs, and states he simply uses the technology to keep him busy. He denies any paranoia surrounding the "smart phone" technology. Pt denies SI, and acute needs or concerns that this time. Physical Exam Psychiatric Orientation: alert, oriented x 3 and cooperative (and pleasant) Apperance: appropriately dressed (casually, in t-shirt) and appeared stated age Eye Contact: good eye contact Motor Behavior: steady gait and station and no abnormal motor movements Speech: normal rate/rhythm/volume of speech Affect: + blunted affect Mood: + anxious mood (reports ongoing stressors); no depressed mood Thought Process: goal directed thought process and + concrete thought process Thought Content: reality based without delusions; no hopelessness Suicidal Thoughts: denies suicidal thoughts, denies suicidal plan and denies suicidal intent Homicidal Thoughts: denies homicidal thoughts Hallucinations: no auditory hallucinations and no visual hallucinations (despite telling CM that he is experiencing visual hallucinations) Cognition: attention grossly intact and language grossly intact Insight: + fair insight Judgement: + fair judgement Vital Signs (Past 24 Hours) Last Vital Signs Temp 36.6 C 03/18/19 06:00 Pulse 83 03/18/19 06:00 Resp 18 03/18/19 06:00 BP 105/73 03/18/19 06:00 Pulse Ox 96 03/17/19 01:55 Results & Data Laboratory Results Laboratory Results - last 24 hr 03/17/19 20:21 Valproic Acid 70 Current Inpatient Medications Current Inpatient Medications: Current Inpatient Medications Acetaminophen (Tylenol) 650 mg PO Q4H PRN PRN Reason: Headache or Minor Fever Stop: 04/16/19 02:37 Last Admin: 03/17/19 19:09 Dose: 650 mg Documented by: Al Hydrox/Mg Hydrox/Simethicone (Maalox) 30 ml PO Q4H PRN PRN Reason: GI Upset Stop: 04/16/19 02:37 Amitriptyline HCl (Elavil) 100 mg PO HS CALI Stop: 04/16/19 21:59 Last Admin: 03/17/19 21:53 Dose: 100 mg Documented by: Bismuth Subsalicylate (Kaopectate) 15 ml PO PRN PRN PRN Reason: Loose Stool Stop: 04/16/19 02:37 Clonazepam (Klonopin) 0.5 mg PO BID CALI Stop: 04/16/19 08:59 Last Admin: 03/18/19 08:18 Dose: 0.5 mg Documented by: Clozapine (Clozapine) 300 mg PO HS [facility]I Stop: 04/16/19 21:59 Last Admin: 03/17/19 21:53 Dose: 300 mg Documented by: Divalproex Sodium (Depakote Extended Release) 1,500 mg PO HS CALI Stop: 04/16/19 21:59 Last Admin: 03/17/19 21:53 Dose: 1,500 mg Documented by: Docusate Sodium (Colace) 100 mg PO BID CALI Stop: 04/16/19 08:59 Last Admin: 03/18/19 08:18 Dose: 100 mg Documented by: Hydroxyzine HCl (Vistaril) 50 mg PO HSZ PRN PRN Reason: Insomnia Stop: 04/16/19 02:37 Hydroxyzine HCl (Vistaril) 25 mg PO Q4H PRN PRN Reason: Anxiety Stop: 04/16/19 02:37 Lisinopril (Zestril) 5 mg PO DAILY CALI Stop: 04/16/19 08:59 Last Admin: 03/18/19 08:19 Dose: 5 mg Documented by: Magnesium Hydroxide (Milk Of Magnesia) 30 ml PO DAILY PRN PRN Reason: Constipation Stop: 04/16/19 02:37 Propranolol HCl (Inderal) 10 mg PO 1200 CALI Stop: 04/16/19 11:59 Last Admin: 03/17/19 12:44 Dose: 10 mg Documented by: Simvastatin (Zocor) 20 mg PO HS CALI Stop: 04/16/19 21:59 Last Admin: 03/17/19 21:53 Dose: 20 mg Documented by: Sodium Chloride (Lucas Nasal) 1 - 2 sprays NA PRN PRN PRN Reason: Nasal Dryness/Congestion Stop: 04/16/19 02:37 Vitamin D (Vitamin D3) 1,000 units PO DAILY CALI Stop: 04/16/19 08:59 Last Admin: 11/05/19 08:19 Dose: 1,000 units Documented by: Mental Health & Subst Abuse Tx Therapist Name of Therapist: [facility], denied going back. Hair Clipper Power Name of Hair Clipper Power: CHAPITO Castro Date of Appointment with Hair Clipper Power: 03/19/19 Time of Appointment with Hair Clipper Power: 1pm Post Discharge Appointments Primary Care Physician Name Of Family Doctor: Dr Shine Time of Appointment with PCP: KRYSTA [facility] - Jessie Freitas (1) Schizoaffective disorder Schizoaffective disorder type: depressive Qualified Code(s): F25.1 - Schizoaffective disorder, depressive type
[2019-03-18] MEDS: PROPRANOLOL HCL 10 MG TAB PO SCH (12:31)
[2019-03-18] MEDS: ACETAMINOPHEN 325 MG TAB PO PRN (19:26)
[2019-03-18] MEDS: cloZAPine 100 MG TAB PO SCH (21:53)
[2019-03-18] MEDS: SIMVASTATIN 20 MG TAB PO SCH (21:54)
[2019-03-18] MEDS: AMITRIPTYLINE HCL 100 MG TAB PO SCH (21:54)
[2019-03-18] MEDS: DIVALPROEX EXTENDED RELEASE 500 MG TAB PO SCH (21:54)
[2019-03-19] MEDS: DOCUSATE SODIUM 100 MG CAP PO SCH ×2 (09:04→21:28)
[2019-03-19] MEDS: CHOLECALCIFEROL 1,000 UNITS TAB PO SCH (09:04)
[2019-03-19] MEDS: LISINOPRIL 5 MG TAB PO SCH (09:05)
[2019-03-19] MEDS: clonazePAM 0.5 MG TAB PO SCH ×2 (09:07→21:29)
--- NOTE | 2019-03-19 12:38 | Psychiatric Progress Note ---
Date of Service March 19, 2019 Impression / Recommendations Impression 43-year-old male with a history of schizoaffective disorder who presents with worsening mood and suicidal ideation in the context financial stressors, with inability to afford to get his car fixed, which limits his transportation and ability to get around. He has been intermittently struggling for the past couple of months, with difficulty completing ADLs at times (food shopping and preparation). He has missed doses of his medication at times, although he recognizes that they are helpful and that symptoms worsen when this happens. He thinks his current medication regimen is helpful, so we will continue it unchanged while gathering supplemental information. He would like to work on his coping skills, and typically benefits from the milieu and therapy on the unit. Inpatient treatment is medically necessary due to the severity of his symptoms and risk for suicide if discharged. (1) Suicidal ideation: Continue voluntary hospitalization; suicide checks for safety. Encourage participation in unit groups and programming. Work on healthy coping skills and discharge safety plan. Family meeting as appropriate. 03/18 - Denies SI (2) Schizoaffective disorder: 03/17 -continue home psychotropics including clozapine 300 mg at bedtime, amitriptyline 100 mg at bedtime, clonazepam 0.5 mg twice daily, and Depakote 150 0 mg at bedtime. Check Depakote trough level today. -CBC on admission showed ANC of 3.99. -Fasting lipid profile from 05/2018 notable for triglycerides 179, otherwise within normal limits. Fasting glucose 114. -Coordinate care with outpatient, Kendal Ye, at [facility], [facility], and [facility]. 03/18 - Continue home medication regimen, patient does not feel he requires medica tion adjustments - Depakote level returned, WNL at 70 - Coordinate discharge planning with outpatient CM, and other providers 03/19 - Continue home medication regimen - confirm patient has refills available for him to continue on discharge - Coordinate discharge planning, patient feels he may be ready to leave as early as tomorrow (3) Anxiety: Hydroxyzine as needed. Patient states that anxiety symptoms have been well controlled recently. (4) Hematuria: 03/17 -chronic (multiple UAs with occult blood dating back >2 yrs). Denies current urinary symptoms. Follow-up with PCP, Dr. Nuvia Liao, as needed. (5) Hyperlipidemia: Continue home dose of simvastatin 20 mg at bedtime. (6) Hypertension: Continue home doses of lisinopril 5 mg daily and propanolol 10 mg daily. Inventory Assets Strengths: Stable housing, extensive outpatient services Needs: Coping skills Risk Factors Assessment Male: Yes : Yes Do You Have Access To A Gun?: No Health Problems: Yes Mental Health Diagnoses: Yes Substance Use Disorders: No Previous Attempt: Yes Family History of Suicide: No Previous Psychiatric Hospitalization: Yes Hopelessness: Yes Smoker: No Protective Factors Assessment : No Responsible for Young Children: No Employed: No (unemployed) Stable Relationships: Yes Supportive Family: No Good Rapport with Provider: Yes Interval History Identifying Information ROGER SCHMIDT is a 43-year-old M who currently lives alone in [place], has a history of schizoaffective disorder bipolar type, and was admitted on 03/17/19 02:12 on a 201 voluntary commitment for suicidal ideation with a reported plan to stab himself. Chief Complaint "I need to confirm that I will have my medications on discharge." Review of Systems Notes Constitutional: denied Cardiovascular: denied Respiratory: denied Gastrointestinal: denied Neurological: denied Psychiatric: denies symptoms other than stated above Total of at least 10 systems reviewed, pertinent positives as above and in HPI. Sleep Information Total Hours of Sleep: 6.25 Sleep Comments: awakened with new roommate Meal Information Percent Meal Consumed - Breakfast: 80 Percent Meal Consumed - Lunch: 75 Percent Meal Consumed - Dinner: 100 Subjective Subjective Patient was seen & assessed and interval progress reviewed with treatment team. Staff reports the patient has been attending some groups, but also sleeps a bit throughout the day. He rated his mood a 6/10 and "optimistic" last evening. Pt was seen today to assess progress since admission. Pt states he is doing well and verbalizes "I needed to get away for a week." Pt desires to confirm that he has medications at discharge, as concern for running out of medications was a primary stressor leading to his admission. Pt states he is usually required to sign for the medications thought the post office. Otherwise, patient states that he has noticed improvements in his condition. He believes that although his car is not usable, that he will be able to meet his weekly appointments by using the [employer] bus and [employer] transportation. Pt denies SI at this time, denies other needs or concerns presently. Physical Exam Psychiatric Orientation: alert, oriented x 3 and cooperative (and pleasant) Apperance: appropriately dressed (in t-shirt and scrub pants), appropriately groomed and appeared stated age Eye Contact: good eye contact Motor Behavior: steady gait and station and no abnormal motor movements Speech: normal rate/rhythm/volume of speech Affect: + blunted affect Mood: + anxious mood (reports anxious about confirming medications on discharge); no depressed mood Thought Process: goal directed thought process and + concrete thought process Thought Content: reality based without delusions Suicidal Thoughts: denies suicidal thoughts, denies suicidal plan and denies suicidal intent Homicidal Thoughts: denies homicidal thoughts Hallucinations: no auditory hallucinations and no visual hallucinations Cognition: attention grossly intact and language grossly intact Insight: + fair insight Judgement: + fair judgement Vital Signs (Past 24 Hours) Last Vital Signs Temp 36.8 C 03/19/19 07:09 Pulse 84 03/19/19 07:12 Resp 16 03/19/19 07:09 BP 113/79 03/19/19 07:12 Pulse Ox 96 03/17/19 01:55 Results & Data Current Inpatient Medications Current Inpatient Medications: Current Inpatient Medications Acetaminophen (Tylenol) 650 mg PO Q4H PRN PRN Reason: Headache or Minor Fever Stop: 04/16/19 02:37 Last Admin: 03/18/19 19:26 Dose: 650 mg Documented by: Al Hydrox/Mg Hydrox/Simethicone (Maalox) 30 ml PO Q4H PRN PRN Reason: GI Upset Stop: 04/16/19 02:37 Amitriptyline HCl (Elavil) 100 mg PO HS [facility] Stop: 04/16/19 21:59 Last Admin: 03/18/19 21:54 Dose: 100 mg Documented by: Bismuth Subsalicylate (Kaopectate) 15 ml PO PRN PRN PRN Reason: Loose Stool Stop: 04/16/19 02:37 Clonazepam (Klonopin) 0.5 mg PO BID CALI Stop: 04/16/19 08:59 Last Admin: 03/19/19 09:07 Dose: 0.5 mg Documented by: Clozapine (Clozapine) 300 mg PO HS [facility] Stop: 04/16/19 21:59 Last Admin: 03/18/19 21:53 Dose: 300 mg Documented by: Divalproex Sodium (Depakote Extended Release) 1,500 mg PO HS CALI Stop: 04/16/19 21:59 Last Admin: 03/18/19 21:54 Dose: 1,500 mg Documented by: Docusate Sodium (Colace) 100 mg PO BID CALI Stop: 04/16/19 08:59 Last Admin: 03/19/19 09:04 Dose: 100 mg Documented by: Hydroxyzine HCl (Vistaril) 50 mg PO HSZ PRN PRN Reason: Insomnia Stop: 04/16/19 02:37 Hydroxyzine HCl (Vistaril) 25 mg PO Q4H PRN PRN Reason: Anxiety Stop: 04/16/19 02:37 Lisinopril (Zestril) 5 mg PO DAILY CALI Stop: 04/16/19 08:59 Last Admin: 03/19/19 09:05 Dose: 5 mg Documented by: Magnesium Hydroxide (Milk Of Magnesia) 30 ml PO DAILY PRN PRN Reason: Constipation Stop: 04/16/19 02:37 Propranolol HCl (Inderal) 10 mg PO 1200 CALI Stop: 04/16/19 11:59 Last Admin: 03/18/19 12:31 Dose: 10 mg Documented by: Simvastatin (Zocor) 20 mg PO HS CALI Stop: 04/16/19 21:59 Last Admin: 03/18/19 21:54 Dose: 20 mg Documented by: Sodium Chloride (Ladd Nasal) 1 - 2 sprays NA PRN PRN PRN Reason: Nasal Dryness/Congestion Stop: 04/16/19 02:37 Vitamin D (Vitamin D3) 1,000 units PO DAILY CALI Stop: 04/16/19 08:59 Last Admin: 03/19/19 09:04 Dose: 1,000 units Documented by: Mental Health & Subst Abuse Tx Therapist Name of Therapist: [facility], denied going back. Jive Developer Name of Jive Developer: CHAPITO Castro Date of Appointment with Jive Developer: 03/19/19 Time of Appointment with Jive Developer: 1pm Post Discharge Appointments Primary Care Physician Name Of Family Doctor: Dr Shine Time of Appointment with PCP: KRYSTA Daley - Jessie Freitas (1) Schizoaffective disorder Schizoaffective disorder type: depressive Qualified Code(s): F25.1 - Schizoaffective disorder, depressive type
[2019-03-19] MEDS: PROPRANOLOL HCL 10 MG TAB PO SCH (12:48)
[2019-03-19] MEDS: SIMVASTATIN 20 MG TAB PO SCH (21:28)
[2019-03-19] MEDS: DIVALPROEX EXTENDED RELEASE 500 MG TAB PO SCH (21:28)
[2019-03-19] MEDS: AMITRIPTYLINE HCL 100 MG TAB PO SCH (21:28)
[2019-03-19] MEDS: cloZAPine 100 MG TAB PO SCH (21:29)
[2019-03-20] MEDS: clonazePAM 0.5 MG TAB PO SCH (09:25)
[2019-03-20] MEDS: LISINOPRIL 5 MG TAB PO SCH (09:25)
[2019-03-20] MEDS: DOCUSATE SODIUM 100 MG CAP PO SCH (09:25)
[2019-03-20] MEDS: CHOLECALCIFEROL 1,000 UNITS TAB PO SCH (09:25)
--- NOTE | 2019-03-20 10:49 | Discharge Summary ---
Date of Service March 20, 2019 History of Present Illness Patient is known to us from multiple previous hospitalizations. He has been seen in the ER several times over the past 3 months for psychiatric symptoms; an 12/2018 he presented with paranoia in the setting of medication noncompliance for a few days, and was discharged home. He was seen 03/04/2019 with confusion, thought he had been taking his medications incorrectly, and reported difficulty eating and decreased interest over the past month, and was again discharged home. Yesterday, 03/16/2019, he presented to the ER with suicidal ideation for the past few days, in the setting of financial strain. He had been seen by can help in the community, and turned over a knife at his home, reporting he was concerned he would hurt himself or the can help worker. He said he was unemployed and did not have money to get his car fixed, was unable to purchase food, and felt overwhelmed and hopeless. He said he had no motivation to eat or drink, and reported suicidal thoughts with a plan to cut himself, and did not feel safe outside of the hospital. Labs were notable for UA with 1+ blood (present for at least the last 10 months per records), red blood cells 4.32 and hematocrit 39.1; drug screen negative, TSH normal. On my assessment today, the patient was initially difficult to arouse from sleep, and then stated he needed to make some phone calls before coming to the interview room. He states he has been very worried about running out of his medications, as he gets them through a mail order pharmacy and is working with [employer], and was about to run out and didn't think they would come in time. He reports low energy, poor appetite, and low mood for a couple of months. Sleep has been good, and he denies changes in weight. The primary trigger was that his father sent him money to get his car inspected, but he then found out it needed $1,000 worth of work to pass inspection, which he doens't have. He is thinking about using the [employer] van to get to [facility] [place] [place], as he has been going twice a week. SI started 2-3 days ago, and he reports "I wanted to end," stating he "just wanted to be no more, and if that meant killing myself, that's how I felt." He called his friends and [facility], who arranged for him to come to the hospital. He states he doesn't feel safe at home, feared he was going to cut himself, but feels safe here. He would like to work on "grocery shopping techniques," noting he has difficulty going out to get food, which he attributes to lack of motivation. He also wants to work on ways to deal with hopelessness and suicidal thoughts. He does have a bilingual case manager who sometimes helps him with ADLs. He notes appetite is good and he eats well here when food is prepared for him. Another exacerbating factor is that he injured his knee a couple of months ago which has caused pain and prevented him from dancing, which he had been doing weekly. He denies significant anxiety, and states he last had psychotic symptoms a week or so again, "thought people looked like someone else, but I knew it wasn't them." He denies recent changes in his medications and thinks they are helpful. He states he just saw Kendal SIMONS last week and was doing well, so no changes were made. Physical Exam Psychiatric Orientation: alert, oriented x 3 and cooperative Apperance: appropriately dressed, appropriately groomed and appeared stated age Eye Contact: good eye contact Motor Behavior: steady gait and station and no abnormal motor movements Speech: normal rate/rhythm/volume of speech Affect: euthymic affect and mood congruent with affect "Good, better." Thought Process: goal directed thought process and linear/logical thought process Thought Content: reality based without delusions Suicidal Thoughts: denies suicidal thoughts Homicidal Thoughts: denies homicidal thoughts Hallucinations: no auditory hallucinations and no visual hallucinations Cognition: recent memory grossly intact, attention grossly intact and language grossly intact Insight: good insight Judgement: good judgement Vital Signs (Past 24 Hours) Last Vital Signs Temp 36.7 C 03/20/19 06:58 Pulse 88 03/20/19 06:58 Resp 16 03/20/19 06:58 BP 119/85 03/20/19 06:58 Pulse Ox 96 03/17/19 01:55 Principal Diagnosis Schizoaffective disorder, depressed type Psychiatric Data Patient was hospitalized for 3 days. He was continued on his home medications. Depakote trough was checked and in the therapeutic range at 70. He reported his medications were unofficial and well-tolerated, and that he had decompensated in the setting of acute distress due to the issue with his car and worries that he would not get his medications in time and would run out. He attended and participated in groups and therapy, was calm and cooperative, and tended to his ADLs independently. 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 He was given information about arranging transportation through the [facility], as he could no longer use his car. [employer] med management services were contacted to try to clarify the problems he was having getting his medications on time. They made a plan to have his CBC done earlier so there would be more time for the mail order pharmacy to process his medication order. The patient was able to contact the post office and confirmed that all of his medications were there and ready for him to spanish moss picker at the time of discharge. The patient's mood improved, psychotic symptoms improved, and he consistently denied suicidal ideation in the hospital. He was noted to be eating and sleeping well, taking medications as prescribed, and engaged in treatment. Day of Discharge Assessment Patient had a meeting with Debra from [employer] this morning, and his concerns about how he gets his prescription medications were addressed. He contacted the post office himself and confirmed that his medications were there and he could pick them up today. He states he has the information he needs to arrange transportation on the [facility] to get to his appointments, and can use the bus or taxis as a backup if needed. He states mood is "good," he feels hospitalization was helpful, and feels ready to go home and resume outpatient treatment. He denies suicidal thoughts, hallucinations, paranoia, and any safety concerns with discharge. He is able to review his discharge safety plan, and reports extensive outpatient supports and services in place. He states he has been eating well here, but was having difficulty at home, which he attributes to poor organization and motivation to make a grocery list and plan meals. This is something he plans to work on with his mobile worker. Transition of Care Transition Of Care Record: was reviewed with the patient Advance Directives Advance Directives Information Provided: Yes Advance Directives: No Mental Health Advance Directive: No Advance Directives on File: No Living Will: No Power of Roving Department End Finder: No Advance Directives Reason:: Declines as Mental Health Visit. Risk Factors Assessment Risk factors were mitigated by admission to the inpatient unit, use of medications for mood and psychotic symptoms, clarifying problems with getting outpatient prescriptions filled, involving his various outpatient support services, involving him in groups and therapy, processing his recent stressors, providing information about transportation through the [facility], working on [facility] coping skills and a discharge safety plan. The patient is reporting improved mood and resolution of suicidal thoughts, is engaged in treatment, taking medications as prescribed, and tending to ADLs independently. He is eating and sleeping well, and consistently denying suicidal thoughts. He is requesting discharge, and is he is no longer at acute risk of harm to himself or others, can be managed as an outpatient at this time. Male: Yes : Yes Do You Have Access To A Gun?: No Health Problems: Yes Mental Health Diagnoses: Yes Substance Use Disorders: No Previous Attempt: Yes Family History of Suicide: No Previous Psychiatric Hospitalization: Yes Hopelessness: Yes Smoker: No Protective Factors Assessment : No Responsible for Young Children: No Employed: No (unemployed) Stable Relationships: Yes Supportive Family: No Good Rapport with Provider: Yes Tobacco Cessation at Discharge Tobacco Cessation Medication Prescribed at Discharge: Not Applicable/Non-Smoker Total Time Total Time Spent: Greater Than 30 Minutes Total Time Includes: Examination of the patient, Discharge Planning and Medication Reconciliation Discharge Data Lab Results 03/16/19 03/16/19 03/17/19 23:50 23:50 00:07 WBC 6.65 RBC 4.32 L Hgb 14.1 Hct 39.1 L MCV 90.5 MCH 32.6 MCHC 36.1 H RDW Std Deviation 41.5 RDW Coeff of Levy 12.4 Plt Count 251 MPV 9.4 Immature Gran % (Auto) 0.6 Neut % (Auto) 60.0 Lymph % (Auto) 28.3 [place] % (Auto) 10.5 Eos % (Auto) 0.0 Baso % (Auto) 0.6 Immature Gran # (Auto) 0.04 H Neut # (Auto) 3.99 Lymph # (Auto) 1.88 [place] # (Auto) 0.70 H Eos # (Auto) 0.00 Baso # (Auto) 0.04 Sodium Potassium Chloride Carbon Dioxide Anion Gap BUN Creatinine Est Cr Clr Drug Dosing Est GFR ( Amer) Est GFR (Non-Af Amer) BUN/Creatinine Ratio Glucose Calcium Total Bilirubin AST ALT Alkaline Phosphatase Total Protein Albumin Globulin Albumin/Globulin Ratio TSH Urine Color Yellow Urine Appearance Clear Urine pH 6.5 Ur Specific [place] 1.006 Urine Protein Negative Urine Glucose (UA) Negative Urine Ketones Negative Urine Blood 1+ H Urine Nitrite Negative Urine Bilirubin Negative Urine Urobilinogen Negative Ur Leukocyte Esterase Negative Urine WBC (Auto) 0 Urine RBC (Auto) 0-4 U Hyaline Cast (Auto) 0 U Epithel Cells (Auto) 0-5 Urine Bacteria (Auto) Negative Salicylates Urine Opiates Screen Neg Ur Methadone, Qual Neg Acetaminophen Urine Barbiturates Neg Valproic Acid Ur Phencyclidine (PCP) Neg U Amphetamin/Meth Scrn Neg MDMA (Ecstasy) Screen Neg U Benzodiazepines Scrn Neg Ur Cocaine Metabolite Neg U Marijuana (THC) Screen Neg Ethyl Alcohol mg/dL 03/17/19 03/17/19 03/17/19 00:07 00:07 00:07 WBC RBC Hgb Hct MCV MCH MCHC RDW Std Deviation RDW Coeff of Levy Plt Count MPV Immature Gran % (Auto) Neut % (Auto) Lymph % (Auto) [place] % (Auto) Eos % (Auto) Baso % (Auto) Immature Gran # (Auto) Neut # (Auto) Lymph # (Auto) [place] # (Auto) Eos # (Auto) Baso # (Auto) Sodium 137 Potassium 3.7 Chloride 104 Carbon Dioxide 26 Anion Gap 7.0 BUN 13 Creatinine 0.99 Est Cr Clr Drug Dosing Not Reportable Est GFR ( Amer) 108.4 Est GFR (Non-Af Amer) 93.6 BUN/Creatinine Ratio 12.7 Glucose 101 H Calcium 9.1 Total Bilirubin 0.3 AST 13 L ALT 32 Alkaline Phosphatase 57 Total Protein 7.4 Albumin 3.8 Globulin 3.6 Albumin/Globulin Ratio 1.1 TSH 1.740 Urine Color Urine Appearance Urine pH Ur Specific [place] Urine Protein Urine Glucose (UA) Urine Ketones Urine Blood Urine Nitrite Urine Bilirubin Urine Urobilinogen Ur Leukocyte Esterase Urine WBC (Auto) Urine RBC (Auto) U Hyaline Cast (Auto) U Epithel Cells (Auto) Urine Bacteria (Auto) Salicylates < 1.7 L Urine Opiates Screen Ur Methadone, Qual Acetaminophen < 2 L Urine Barbiturates Valproic Acid Ur Phencyclidine (PCP) U Amphetamin/Meth Scrn MDMA (Ecstasy) Screen U Benzodiazepines Scrn Ur Cocaine Metabolite U Marijuana (THC) Screen Ethyl Alcohol mg/dL < 3.0 03/17/19 20:21 WBC RBC Hgb Hct MCV MCH MCHC RDW Std Deviation RDW Coeff of Levy Plt Count MPV Immature Gran % (Auto) Neut % (Auto) Lymph % (Auto) [place] % (Auto) Eos % (Auto) Baso % (Auto) Immature Gran # (Auto) Neut # (Auto) Lymph # (Auto) [place] # (Auto) Eos # (Auto) Baso # (Auto) Sodium Potassium Chloride Carbon Dioxide Anion Gap BUN Creatinine Est Cr Clr Drug Dosing Est GFR ( Amer) Est GFR (Non-Af Amer) BUN/Creatinine Ratio Glucose Calcium Total Bilirubin AST ALT Alkaline Phosphatase Total Protein Albumin Globulin Albumin/Globulin Ratio TSH Urine Color Urine Appearance Urine pH Ur Specific [place] Urine Protein Urine Glucose (UA) Urine Ketones Urine Blood Urine Nitrite Urine Bilirubin Urine Urobilinogen Ur Leukocyte Esterase Urine WBC (Auto) Urine RBC (Auto) U Hyaline Cast (Auto) U Epithel Cells (Auto) Urine Bacteria (Auto) Salicylates Urine Opiates Screen Ur Methadone, Qual Acetaminophen Urine Barbiturates Valproic Acid 70 Ur Phencyclidine (PCP) U Amphetamin/Meth Scrn MDMA (Ecstasy) Screen U Benzodiazepines Scrn Ur Cocaine Metabolite U Marijuana (THC) Screen Ethyl Alcohol mg/dL Hospital Course (1) Suicidal ideation: Continue voluntary hospitalization; suicide checks for safety. Encourage participation in unit groups and programming. Work on healthy coping skills and discharge safety plan. Family meeting as appropriate. 03/18 - Denies SI (2) Schizoaffective disorder: 03/17 -continue home psychotropics including clozapine 300 mg at bedtime, amitriptyline 100 mg at bedtime, clonazepam 0.5 mg twice daily, and Depakote 1500 mg at bedtime. Check Depakote trough level today. -CBC on admission showed ANC of 3.99. -Fasting lipid profile from 05/2018 notable for triglycerides 179, otherwise within normal limits. Fasting glucose 114. -Coordinate care with outpatient, Kendal Ye, at [facility], [facility], and [facility]. 03/18 - Continue home medication regimen, patient does not feel he requires medication adjustments - Depakote level returned, WNL at 70 - Coordinate discharge planning with outpatient CM, and other providers 03/19 - Continue home medication regimen - confirm patient has refills available for him to continue on discharge - Coordinate discharge planning, patient feels he may be ready to leave as early as tomorrow (3) Anxiety: Hydroxyzine as needed. Patient states that anxiety symptoms have been well controlled recently. (4) Hematuria: 03/17 -chronic (multiple UAs with occult blood dating back >2 yrs). Denies current urinary symptoms. Follow-up with PCP, Dr. Nuvia Liao, as needed. (5) Hyperlipidemia: Continue home dose of simvastatin 20 mg at bedtime. (6) Hypertension: Continue home doses of lisinopril 5 mg daily and propanolol 10 mg daily. Mental Health & Subst Abuse Tx Psychiatrist Name of Psychiatrist: [facility] - Kendal Ye PA-C Psychiatrist's Date of Appointment with Psychiatrist: 03/26/19 Time of Appointment with Psychiatrist: 10am Psychiatric Appointment Comment: [address] [place] [id number] Therapist Name of Therapist: Declined. Corporate Events Director Name of Corporate Events Director: CHAPITO Castro/[employer] (temporary coverage [phone]) Phone Number for Corporate Events Director: Date of Appointment with Corporate Events Director: 03/21/19 Time of Appointment with Corporate Events Director: 10:30am Case Management Appointment Comment: At your home. Post Discharge Appointments Primary Care Physician Name Of Family Doctor: [facility] - Dr. Nuvia Liao, Primary Care Time of Appointment with PCP: Follow up as needed. Provider Appointment Comment: [address] [place] [id number] Partial or Psych Rehab Name of Partial or Psych Rehab: [facility] [place] [place] Linh Daley - Jessie Freitas Phone Number of Partial or Psych Rehab: [phone] Time of Appointment at Partial or Psych Rehab: Follow up after discharge. Partial or Psych Rehab Appointment Comment: Will meet at your home. Smoking Cessation Counseling Tobacco Cessation Medication Prescribed at Discharge: Not Applicable/Non-Smoker Contact Information Discharge Discharge Address: [facility] [address] [place] [address] Discharge Plan Discharge Items Patient Disposition: Home - Self-Care Reason For Visit: SCHIZOAFFECTIVE Discharge Diagnosis: Schizoaffective disorder, depressive type Activity: Per Instructions section Non-emergency contact: Primary Care Provider, Psychiatrist, Therapist and Director Content Marketing Call non-emergency contact if: you have any medication questions and your symptoms worsen Follow-up/Referrals: Nuvia Liao DO [Primary Care Provider] - Diet: Regular Addtl Attending Provider Instructions: SPECIAL CARE INSTRUCTIONS: 1. Follow through with your scheduled aftercare appointments. If unable to keep an appointment, please call to reschedule. 2. Take your medication only as prescribed. Medication should not be changed or stopped without the approval of your doctor. In the event of worsening symptoms or concerns about side effects, contact your doctor immediately. 3. Utilize new healthy coping skills, anger management skills, and stress management skills learned during your hospitalization. Journal feelings and process them with a support person. Identify stressors or situations that may result in relapse, deterioration or inappropriate behaviors and develop a plan to deal with those issues. 4. If your coping skills are ineffective and you are in crisis, contact your outpatient providers for direction. If unable to reach your providers, please call the CAN HELP LINE AT or go to the closest Emergency Room. 5. Avoid alcohol and un-prescribed drugs. 6. You have been provided with the Mental Health Advance Directives Pamphlet for your review. AFTERCARE APPOINTMENTS: * Please call your insurance company prior to your scheduled appointment to confirm your aftercare providers are covered. Take your insurance information to your appointments. WHO TO CALL AND WHEN: Medical Emergencies: For questions or emergencies related to your hospital stay, please contact the Inpatient Behavioral Health Unit at [phone]. A farmworkers is on-call 04/12 for the Behavioral Health Unit for emergencies At any time you feel your situation is an emergency, you may also call 911 immediately. Your Doctors Instructions noted above were prepared by provider Soco Milner MD. Pending Studies at Discharge: No Stand-Alone Forms: My [facility] [employer], Smoking Cessation, Suicide Prevention Resources Medications and DC Order Prescriptions: Continued lisinopril 5 mg Tablet 5 mg PO DAILY RF: 0 simvastatin [Zocor] 20 mg Tablet 20 mg PO HS RF: 0 amitriptyline 100 mg Tablet 100 mg PO HS RF: 0 cholecalciferol (vitamin D3) [Vitamin D3] 1,000 unit Capsule 1,000 unit PO DAILY RF: 0 clonazepam [Klonopin] 0.5 mg Tablet 0.5 mg PO BID RF: 0 clozapine [Clozaril] 100 mg Tablet 300 mg PO HS RF: 0 propranolol 10 mg Tablet 10 mg PO DAILY RF: 0 divalproex [Depakote ER] 500 mg Tablet Extended Release 24 Hr 1,500 mg PO HS RF: 0 docusate sodium [DOK] 100 mg Capsule 100 mg PO BID RF: 0 Discharge Orders: Discharge Order (Routine); Ordered 03/20/19 Ordered By: Soco Milner Admission Data Admit Date/Time: 03/17/19 02:12 Attending Provider: Soco Milner Admit Provider: Melissa Mccarthy Primary Care Provider: Nuvia Liao Other Interventions: PSY Interdisciplinary Discharge Planning Last Done: 03/20/19 10:12 Coding Level of Care Code 61536 D/C day mgmt > 30 min Diagnoses Suicidal ideation R45.851 Schizoaffective disorder F25.1 Schizoaffective disorder type: depressive Anxiety F41.9 Hematuria R31.9 Hyperlipidemia E78.5 Hypertension I10
== END 2019-03-20 11:45 | disposition home or self-care (01) | DRG 885 ==
LOC: ED 23:44 → 3S 03-17 02:12

== ENCOUNTER 2020-01-12 00:05 | Inpatient (IN) ==
[2020-01-12] MEDS ORDERED: XYLOCAINE 1%/SOD BICARB 20 ML VIAL INFIL ONE (00:23)
[2020-01-12 00:48] LABS: Basophils # (auto) 0.01 K/uL (0-0.2); Basophils % (auto) 0.2 %; Hemoglobin 13.3 g/dL (14.0-18.0); Immature Granulocytes # (auto) 0.02 K/uL (0.00-0.02); Immature Granulocytes % (auto) 0.3 %; Lymphocytes # (auto) 1.74 K/uL (1.2-3.4); Lymphocytes % (auto) 28.5 %; Mean Corpuscular Hemoglobin 31.9 pg (25-34); Mean Corpuscular Volume 91.1 fL (80-100); Mean Platelet Volume 9.4 fL (7.4-10.4); Monocytes # (auto) 1.03 K/uL (0.11-0.59); Monocytes % (auto) 16.9 %; Neutrophils # (auto) 3.31 K/uL (1.4-6.5); Neutrophils % (auto) 54.1 %; Platelet Count 199 K/uL (130-400); RDW Coefficient of Variation 12.2 % (11.5-14.5); RDW Standard Deviation 40.5 fL (36.4-46.3); Red Blood Count 4.17 M/uL (4.7-6.1); White Blood Count 6.11 K/uL (4.8-10.8)
[2020-01-12 00:52] LABS: Appearance Urine Clear (Clear); Bacteria Urine Automated Negative (Negative); Bilirubin Urine Negative (Negative); Blood Urine 1+ (Negative); Cast Urine Automated 0 /lpf (0-5); Color Urine Yellow; Epithelial Cell Urine Auto 0-5 /lpf (0-5); Glucose Urine UA Negative (Negative); Ketones Urine Trace (Negative); Leukocyte Esterase Urine Negative (Negative); Nitrite Urine Negative (Negative); Protein Urine Negative (Negative); Specific Gravity Urine 1.015 (1.000-1.030); Urobilinogen Urine Negative (Negative); WBC Urine Automated 0 /hpf (0-5)
[2020-01-12 01:07] LABS: Albumin Level 3.4 gm/dl (3.4-5.0); BUN Creatinine Ratio 20.3 (10-20); Calcium 8.9 mg/dl (8.5-10.1); Creatinine Clr Calc Pharmacy 107.4 ml/min; Est GFR (African American) 110.4; Est GFR (Non-African American) 95.2
[2020-01-12 01:11] LABS: Amphetamines+Metham, Urine Neg (Neg); Barbiturates, Urine Neg (Neg); Benzodiazepine, Urine Neg (Neg); Cocaine, Urine Neg (Neg); MDMA (Ecstacy), Urine Neg (Neg); Methadone, Urine Neg (Neg); Opiate, Urine Neg (Neg); Phencyclidine, Urine Neg (Neg)
[2020-01-12 01:17] LABS: Albumin Globulin Ratio 0.9 (0.9-2); Bilirubin,Total 0.2 mg/dl (0.2-1); Globulin 3.6 gm/dl (2.5-4.0); Thyroid Stimulating Hormone 1.82 uIu/ml (0.300-4.500)
[2020-01-12 01:19] LABS: Acetaminophen < 2 ug/ml (10-30); Salicylate < 1.7 mg/dl (2.8-20)
--- NOTE | 2020-01-12 01:34 | Emergency Department Note ---
ED Visit Note Staple Repair Location: Right leg Total length: 3 cm Complexity: Simple Verbal consent was obtained after the risks and benefits were explained, including but not limited to bleeding, scarring, infection, pain, and bone/nerve damage. At this time, the risks of the procedure are less than the risks of NOT performing the procedure. A time out was taken and the correct patient and site identified. The scalp was prepped with betadine. The target area was anesthetized with 3 ml of 1% lidocaine without epinephrine. Copious irrigation was performed using saline. The skin was re-prepped with betadine, the hair cleared from the wound, and a sterile field set. The wound was explored for foreign bodies and none found. Debridement was not performed. The wound edges were approximated using 6 surgical emmett in the standard fashion. Hemostasis and excellent approximation was achieved. Antibacterial ointment and a sterile dressing applied. Detailed wound care instructions and signs and symptoms of infection reviewed with the pt. No complications and the patient tolerated the procedure well. I performed the procedure. .
--- NOTE | 2020-01-12 05:59 | Emergency Department Note ---
Impression & Plan Suicide attempt, Stab wound ED Provider Note NAME: ROGER SCHMIDT AGE: 44 SEX: M ARRIVES VIA: Ambulance INFORMANT: Patient ED PROVIDER(S): Priscila Alford DO CHIEF COMPLAINT: Suicide attempt PLAN: Disposition: The case will be signed out to Dr. Torres at change of shift Condition: Stable MEDICAL DECISION MAKING: This is a 44-year-old male patient who presents to the emergency department after he stabbed himself in the right mid thigh with a commando knife. The patient has a history of schizoaffective disorder and anxiety and states that he became paranoid tonight and stabbed himself in the leg believing that he would bleed to . The patient's H/H is stable. He is currently taking his medications and following through with counseling but still feels suicidal. He is willing to admit himself voluntarily for inpatient psychiatric care. A bed search is underway. The case will be signed out to Dr. Torres at change of shift. Triage Nursing notes reviewed and agree them. Vital Signs: reviewed and unremarkable Differential diagnosis: Self-mutilation, mood disorder, thought disorder, medication noncompliance, anemia ER treatment provided: Suture repair of the wound to the right thigh-see procedure note dictation by Linda Mason PA-C Laboratory studies: See below HPI: 44/M arrives for evaluation of self-inflicted wound. The patient has a history of schizoaffective disorder and states he became paranoid tonight and stabbed himself in the right thigh. Patient states that he was hanging out with a friend tonight eating [employer] pizza and watching a movie but then became p aranoid. After the friend left, he called another friend on the phone and became upset and stabbed himself in the right thigh. He states that the knife only went in approximately 1-2 inches. There is now 3 cm laceration to the right mid thigh. He states that he bled approximately 4 cups of blood and thought that he would watch himself from this self-inflicted wound. The patient does describe previous suicide attempts. ROS: See above HPI for pertinent positives & negatives. A total of 10 systems reviewed and were otherwise negative. PAST MEDICAL HISTORY:See Below PAST SURGICAL HISTORY:See Below FAMILY HISTORY:See Below SOCIAL HISTORY:See Below HOME MEDICATIONS:See list ALLERGIES:See list VITALS:See Below PHYSICAL EXAMINATION: HEENT: Head - normocephalic and atraumatic Pupils are equal, round, and reactive to light. Extraocular eye muscles are intact, and sclera are anicteric. Nose - moist nasal mucosa without discharge. Mouth - moist buccal mucosa. Oropharynx is nonerythematous and there is no tonsillar exudate or edema noted. Neck: Supple; no JVD, nuchal rigidity, cervical lymphadenopathy, or auscultated bruits. Heart: Regular rate and rhythm. There is a normal S1 and S2 with no murmurs, clicks, or gallops appreciated. Lungs: Clear to auscultation bilaterally with no wheezes, rales, or rhonchi. Abdomen: Soft, completely nontender, nondistended, with good bowel sounds. There are no palpable pulsatile masses or hepatosplenomegaly. There is no guarding, rigidity, or rebound noted. Extremities: Right mid thigh-3 cm laceration with some subcutaneous fat exposed. There are easily palpable peripheral pulses. Skin: warm and dry with good turgor and no rashes. Psych: The patient does describe this self-inflicted stab wound as a suicide attempt. The patient has a normal affect. He denies any drug or alcohol use. ED COURSE: Times/Reassessments: 0010: Patient was evaluated in room A3. He is up-to-date on his tetanus. Labs were drawn as above. The wound was repaired by Linda Mason PA-C The patient is willing to admit himself voluntarily for inpatient psychiatric care The case will be signed out to Dr. Torres at change of shift awaiting bed placement. Priscila Alford DO Past Med/Surg History Medical History (Updated 01/12/20 @ 06:00 by Priscila Alford DO) Acute bronchitis, viral Anxiety Depression Hematuria Hyperlipidemia Hypertension Overdose Schizoaffective disorder Surgical History No pertinent past surgical history Family History Other No pertinent family history Social History Smoking Status: Former smoker Preferred Language: Tuvaluan Communication Ability: Effective [employer] Required: No Beliefs That Will Affect Care: None Feels Safe at Home: Yes Allergies Allergies Allergy/AdvReac Type Severity Reaction Status Date / Time aripiprazole [From Abilify] AdvReac Mild Insomnia Verified 01/12/20 01:58 albuterol AdvReac Depression Verified 01/12/20 01:58 atorvastatin AdvReac Unknown Unverified 01/12/20 01:58 chlorpromazine AdvReac Unknown Unverified 01/12/20 01:58 [From Thorazine] diphenhydramine AdvReac Unknown Unverified 01/12/20 01:58 guanfacine AdvReac Unknown Unverified 01/12/20 01:58 lithium AdvReac Unknown Unverified 01/12/20 01:58 olanzapine AdvReac Unknown Unverified 01/12/20 01:58 quetiapine [From Seroquel] AdvReac Unknown Unverified 01/12/20 01:58 risperidone AdvReac Unknown Unverified 01/12/20 01:58 Home Meds Home Medications Medication Instructions Recorded Confirmed amitriptyline 100 mg PO HS 03/17/19 01/12/20 cholecalciferol (vitamin D3) 1,000 unit PO DAILY 03/17/19 01/12/20 [Vitamin D3] clonazepam [Klonopin] 0.5 mg PO BID 03/17/19 01/12/20 clozapine [Clozaril] 300 mg PO HS 03/17/19 01/12/20 divalproex [Depakote ER] 1,500 mg PO HS 03/17/19 01/12/20 docusate sodium [DOK] 100 mg PO BID 03/17/19 01/12/20 lisinopril 5 mg PO DAILY 03/17/19 01/12/20 propranolol 10 mg PO DAILY 03/17/19 01/12/20 simvastatin [Zocor] 20 mg PO HS 03/17/19 01/12/20 Results & Data (ED) Vital Signs Vital Signs - 24 hr 01/12/20 00:10 01/12/20 00:30 01/12/20 01:00 Temperature 36.9 C Temperature Source Oral Pulse Rate 111 H 98 H 96 H Respiratory Rate 20 16 18 Respiratory Effort / Characteristics Non-Labored Spontaneous Respiratory Depth Normal Blood Pressure 155/109 H 138/95 133/93 Blood Pressure Mean 124 105 98 Pulse Oximetry 97 97 94 Oxygen Delivery Method Room Air Sepsis New/Unexplained Change in Mental Status N/A Sepsis Action Taken by Nursing No Action Required 01/12/20 01:30 Temperature Temperature Source Pulse Rate 90 Respiratory Rate 18 Respiratory Effort / Characteristics Respiratory Depth Blood Pressure 117/89 Blood Pressure Mean 92 Pulse Oximetry 98 Oxygen Delivery Method Sepsis New/Unexplained Change in Mental Status Sepsis Action Taken by Nursing Laboratory Data Result diagrams: 01/12/20 00:37 01/12/20 00:37 Lab Results 01/12/20 01/12/20 01/12/20 Range/Units 00:37 00:37 00:37 WBC 6.11 (4.8-10.8) K/uL RBC 4.17 L (4.7-6.1) M/uL Hgb 13.3 L (14.0-18.0) g/dL Hct 38.0 L (42-52) % MCV 91.1 (80-100) fL MCH 31.9 (25-34) pg MCHC 35.0 (32-36) g/dL RDW Std Deviation 40.5 (36.4-46.3) fL RDW Coeff of Levy 12.2 (11.5-14.5) % Plt Count 199 (130-400) K/uL MPV 9.4 (7.4-10.4) fL Immature Gran % (Auto) 0.3 % Neut % (Auto) 54.1 % Lymph % (Auto) 28.5 % George % (Auto) 16.9 % Eos % (Auto) 0.0 % Baso % (Auto) 0.2 % Neut # (Auto) 3.31 (1.4-6.5) K/uL Lymph # (Auto) 1.74 (1.2-3.4) K/uL George # (Auto) 1.03 H (0.11-0.59) K/uL Eos # (Auto) 0.00 (0-0.5) K/uL Baso # (Auto) 0.01 (0-0.2) K/uL Immature Gran # (Auto) 0.02 (0.00-0.02) K/uL Sodium 140 (136-145) mmol/L Potassium 4.0 (3.5-5.1) mmol/L Chloride 108 H (98-107) mmol/L Carbon Dioxide 24 (21-32) mmol/L Anion Gap 8.0 (3-11) BUN 20 H (7-18) mg/dl Creatinine 0.97 (0.6-1.4) mg/dl Est Cr Clr Drug Dosing 107.4 ml/min Est GFR ( Amer) 110.4 Est GFR (Non-Af Amer) 95.2 BUN/Creatinine Ratio 20.3 H (10-20) Glucose 96 (70-99) mg/dl Calcium 8.9 (8.5-10.1) mg/dl Total Bilirubin 0.2 (0.2-1) mg/dl AST 19 (15-37) U/L ALT 38 (12-78) U/L Alkaline Phosphatase 52 (45-117) U/L Total Protein 7.0 (6.4-8.2) gm/dl Albumin 3.4 (3.4-5.0) gm/dl Globulin 3.6 (2.5-4.0) gm/dl Albumin/Globulin Ratio 0.9 (0.9-2) TSH 1.820 (0.300-4.500) uIu/ml Urine Color Urine Appearance (Clear) Urine pH (4.5-7.5) Ur Specific [place] (1.000-1.030) Urine Protein (Negative) Urine Glucose (UA) (Negative) Urine Ketones (Negative) Urine Blood (Negative) Urine Nitrite (Negative) Urine Bilirubin (Negative) Urine Urobilinogen (Negative) Ur Leukocyte Esterase (Negative) Urine WBC (Auto) (0-5) /hpf Urine RBC (Auto) (0-4) /hpf U Hyaline Cast (Auto) (0-5) /lpf U Epithel Cells (Auto) (0-5) /lpf Urine Bacteria (Auto) (Negative) Salicylates < 1.7 L (2.8-20) mg/dl Urine Opiates Screen (Neg) Ur Methadone, Qual (Neg) Acetaminophen < 2 L (10-30) ug/ml Urine Barbiturates (Neg) Ur Phencyclidine (PCP) (Neg) U Amphetamin/Meth Scrn (Neg) MDMA (Ecstasy) Screen (Neg) U Benzodiazepines Scrn (Neg) Ur Cocaine Metabolite (Neg) U Marijuana (THC) Screen (Neg) Ethyl Alcohol mg/dL (0-3) mg/dl 01/12/20 01/12/20 01/12/20 Range/Units 00:37 00:37 00:37 WBC (4.8-10.8) K/uL RBC (4.7-6.1) M/uL Hgb (14.0-18.0) g/dL Hct (42-52) % MCV (80-100) fL MCH (25-34) pg MCHC (32-36) g/dL RDW Std Deviation (36.4-46.3) fL RDW Coeff of Levy (11.5-14.5) % Plt Count (130-400) K/uL MPV (7.4-10.4) fL Immature Gran % (Auto) % Neut % (Auto) % Lymph % (Auto) % George % (Auto) % Eos % (Auto) % Baso % (Auto) % Neut # (Auto) (1.4-6.5) K/uL Lymph # (Auto) (1.2-3.4) K/uL George # (Auto) (0.11-0.59) K/uL Eos # (Auto) (0-0.5) K/uL Baso # (Auto) (0-0.2) K/uL Immature Gran # (Auto) (0.00-0.02) K/uL Sodium (136-145) mmol/L Potassium (3.5-5.1) mmol/L Chloride (98-107) mmol/L Carbon Dioxide (21-32) mmol/L Anion Gap (3-11) BUN (7-18) mg/dl Creatinine (0.6-1.4) mg/dl Est Cr Clr Drug Dosing ml/min Est GFR ( Amer) Est GFR (Non-Af Amer) BUN/Creatinine Ratio (10-20) Glucose (70-99) mg/dl Calcium (8.5-10.1) mg/dl Total Bilirubin (0.2-1) mg/dl AST (15-37) U/L ALT (12-78) U/L Alkaline Phosphatase (45-117) U/L Total Protein (6.4-8.2) gm/dl Albumin (3.4-5.0) gm/dl Globulin (2.5-4.0) gm/dl Albumin/Globulin Ratio (0.9-2) TSH (0.300-4.500) uIu/ml Urine Color Yellow Urine Appearance Clear (Clear) Urine pH 6.0 (4.5-7.5) Ur Specific [place] 1.015 (1.000-1.030) Urine Protein Negative (Negative) Urine Glucose (UA) Negative (Negative) Urine Ketones Trace H (Negative) Urine Blood 1+ H (Negative) Urine Nitrite Negative (Negative) Urine Bilirubin Negative (Negative) Urine Urobilinogen Negative (Negative) Ur Leukocyte Esterase Negative (Negative) Urine WBC (Auto) 0 (0-5) /hpf Urine RBC (Auto) 10-30 H (0-4) /hpf U Hyaline Cast (Auto) 0 (0-5) /lpf U Epithel Cells (Auto) 0-5 (0-5) /lpf Urine Bacteria (Auto) Negative (Negative) Salicylates (2.8-20) mg/dl Urine Opiates Screen Neg (Neg) Ur Methadone, Qual Neg (Neg) Acetaminophen (10-30) ug/ml Urine Barbiturates Neg (Neg) Ur Phencyclidine (PCP) Neg (Neg) U Amphetamin/Meth Scrn Neg (Neg) MDMA (Ecstasy) Screen Neg (Neg) U Benzodiazepines Scrn Neg (Neg) Ur Cocaine Metabolite Neg (Neg) U Marijuana (THC) Screen Neg (Neg) Ethyl Alcohol mg/dL < 3.0 (0-3) mg/dl Administered Medications Discontinued Medications Lidocaine HCl (Xylocaine 1%/Sod Bicarb 20 Ml Vial) 20 ml INFIL NOW ONE Stop: 01/12/20 00:24 Last Admin: 01/12/20 01:30 Dose: 20 ml Documented by: [id number] Discharge Plan Visit Data Chief Complaint: Mental Health Evaluation Stated Complaint: STAB WOUND TO LEG ED Provider: Priscila Alford Discharge Problem: Suicide attempt, Stab wound Forms Stand Alone Forms: My [facility], Suicide Prevention Resources Prescriptions Prescriptions: No Action lisinopril 5 mg Tablet 5 mg PO DAILY RF: 0 simvastatin [Zocor] 20 mg Tablet 20 mg PO HS RF: 0 amitriptyline 100 mg Tablet 100 mg PO HS RF: 0 cholecalciferol (vitamin D3) [Vitamin D3] 1,000 unit Capsule 1,000 unit PO DAILY RF: 0 clonazepam [Klonopin] 0.5 mg Tablet 0.5 mg PO BID RF: 0 clozapine [Clozaril] 100 mg Tablet 300 mg PO HS RF: 0 propranolol 10 mg Tablet 10 mg PO DAILY RF: 0 divalproex [Depakote ER] 500 mg Tablet Extended Release 24 Hr 1,500 mg PO HS RF: 0 docusate sodium [DOK] 100 mg Capsule 100 mg PO BID RF: 0
--- NOTE | 2020-01-12 07:55 | Emergency Department Note ---
ED Visit Note I received this patient in signout at the change of shift from Dr. Alford pending mental health bed search. Patient was under review by 3 S. who requested a Depakote level. This was added and the patient was accepted to their service on a 201. Please refer to previous documentation for further details of the history, physical and visit. .
[2020-01-12] MEDS ORDERED: ALUMINUM/MAGNESIUM SUSP 30 ML UDC PO PRN (08:07)
[2020-01-12] MEDS ORDERED: BISMUTH SUBSALICYLATE PER ML OMNICELL CHARGE PO PRN (08:07)
[2020-01-12] MEDS ORDERED: SODIUM CHLORIDE 0.65% NA SOLN 45 ML (OCEAN) PRN (08:07)
[2020-01-12] MEDS ORDERED: MAGNESIUM HYDROXIDE SUSP 30 ML UDC PO PRN (08:07)
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
[2020-01-12] MEDS: CHOLECALCIFEROL 1,000 UNITS 25 MCG TAB PO SCH (16:20)
[2020-01-12] MEDS: PROPRANOLOL HCL 10 MG TAB PO SCH (16:20)
[2020-01-12] MEDS: lisinopriL 5 MG TAB PO SCH (16:20)
[2020-01-12] MEDS: DOCUSATE SODIUM 100 MG CAP PO SCH (20:43)
[2020-01-12] MEDS: clonazePAM 0.5 MG TAB PO SCH (20:43)
[2020-01-12] MEDS: cloZAPine 100 MG TAB PO SCH (20:43)
[2020-01-12] MEDS: DIVALPROEX EXTENDED RELEASE 500 MG TAB PO SCH (20:43)
[2020-01-12] MEDS: AMITRIPTYLINE HCL 100 MG TAB PO SCH (20:44)
[2020-01-12] MEDS: SIMVASTATIN 20 MG TAB PO SCH (20:44)
[2020-01-12] MEDS: ACETAMINOPHEN 325 MG TAB PO PRN (21:11)
[2020-01-13] MEDS: ACETAMINOPHEN 325 MG TAB PO PRN (07:36)
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
[2020-01-13] MEDS: clonazePAM 0.5 MG TAB PO SCH ×2 (08:51→22:07)
[2020-01-13] MEDS: DOCUSATE SODIUM 100 MG CAP PO SCH ×2 (08:51→22:07)
[2020-01-13] MEDS: lisinopriL 5 MG TAB PO SCH (08:52)
[2020-01-13] MEDS: CHOLECALCIFEROL 1,000 UNITS 25 MCG TAB PO SCH (08:52)
[2020-01-13] MEDS: PROPRANOLOL HCL 10 MG TAB PO SCH ×2 (08:59→13:01)
--- NOTE | 2020-01-13 11:55 | Communication Note ---
Date of Service: January 13, 2020 [facility] records reviewed: Initial evaluation by Kendal Ye PA-C, 07/25/2019, transitioned from [facility], where he had been seen from 2014-July 03. He reported his medications are helpful, was sleeping about 12 hours a night, eating 1 meal a day which is his baseline. He was continued on Clozaril 300 mg HS, amitriptyline 100 mg HS, Depakote ER 1500 mg HS, Inderal 10 mg q. noon, and Klonopin 0.5 mg twice daily. He was diagnosed with schizoaffective disorder bipolar type and MONICA. Progress note from 10/24/2019 indicates patient had been sleeping more, 10+ hours overnight, and was late to an appointment as a result. His amitriptyline was reduced to 75 mg at bedtime and other medications were continued unchanged. He called in to report he was not doing well, and was seen on 12/01/2019, when he reported continued daytime drowsiness despite the reduced amitriptyline dose, and increase paranoia and delusions. He said he watches [employer] and sometimes believes that what is happening on the show is happening in real life, then feels more paranoid and anxious. He requested to increase his amitriptyline back to 100 mg at bedtime. He followed up 12/25/2019, and reported improvement in anxiety, ongoing daytime sleepiness, but not interfering with function. His medications were continued unchanged.
[2020-01-13] MEDS: DIVALPROEX EXTENDED RELEASE 500 MG TAB PO SCH (22:07)
[2020-01-13] MEDS: SIMVASTATIN 20 MG TAB PO SCH (22:07)
[2020-01-13] MEDS: AMITRIPTYLINE HCL 100 MG TAB PO SCH (22:07)
[2020-01-13] MEDS: cloZAPine 100 MG TAB PO SCH (22:07)
[2020-01-14] MEDS: CHOLECALCIFEROL 1,000 UNITS 25 MCG TAB PO SCH (08:38)
[2020-01-14] MEDS: lisinopriL 5 MG TAB PO SCH (08:38)
[2020-01-14 08:39] LABS: Glucose Fasting 98 mg/dl (70-99)
[2020-01-14] MEDS: DOCUSATE SODIUM 100 MG CAP PO SCH ×2 (08:40→22:07)
[2020-01-14 08:45] LABS: Chol HDL Ratio 3; Cholesterol 155 mg/dl (0-200); HDL Cholesterol 53 mg/dl; LDL Cholesterol Calculated 83 mg/dl; Triglycerides 93 mg/dl (0-150); VLDL Cholesterol 19 mg/dl
[2020-01-14] MEDS ORDERED: BACITRACIN OINT 0.9 GM PKT EXT PRN (09:53)
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
[2020-01-14] MEDS: PROPRANOLOL HCL 10 MG TAB PO SCH (12:23)
[2020-01-14] MEDS ORDERED: POLYETHYLENE (MIRALAX) 17 GM PACK PO ONE (13:55)
[2020-01-14] MEDS ORDERED: clonazePAM 0.5 MG TAB PO SCH (22:00)
[2020-01-14] MEDS: DIVALPROEX EXTENDED RELEASE 500 MG TAB PO SCH (22:07)
[2020-01-14] MEDS: AMITRIPTYLINE HCL 100 MG TAB PO SCH (22:07)
[2020-01-14] MEDS: SIMVASTATIN 20 MG TAB PO SCH (22:07)
[2020-01-14] MEDS: cloZAPine 100 MG TAB PO SCH (22:07)
[2020-01-15] MEDS: ACETAMINOPHEN 325 MG TAB PO PRN (06:11)
[2020-01-15] MEDS: CHOLECALCIFEROL 1,000 UNITS 25 MCG TAB PO SCH (09:06)
[2020-01-15] MEDS: lisinopriL 5 MG TAB PO SCH (09:06)
[2020-01-15] MEDS: DOCUSATE SODIUM 100 MG CAP PO SCH (09:06)
--- NOTE | 2020-01-15 09:34 | Discharge Summary ---
Date of Service January 15, 2020 History of Present Illness Patient presented to the ER overnight by ambulance after he stabbed himself in the right mid thigh with a commando knife, then called 911. He reported feeling paranoid and anxious, and stabbed himself believing he would bleed to . He reported feeling overwhelmed by the media and everything going on in the world, did not feel he had adequate outpatient supports, stating he was no longer attending group through [facility]. He reported low mood, decreased appetite, and difficulty falling asleep. Thoughts were noted to be disorganized and slowed. He scored an 18 on the suicide risk assessment, in the high risk category. He endorsed suicidal thoughts, and was willing to sign in for voluntary treatment. The 3 cm stab wound was irrigated, explored, and closed with 6 surgical emmett. Labs were notable for RBC 4.17, hemoglobin 13.3, hematocrit 38, BUN 20, chloride 108, TSH 1.820, UA with trace ketones and 1+ blood, 10-30 RBCs, and negative UDS. Depakote level 96. On my assessment, he states that he has been feeling more stressed and overwhelmed by "all the political stuff going on." He talks about his mail-in motor balance not fitting in the envelope, and feeling distraught yesterday after spending an hour on social media. He went to bed at his normal time around 10 PM, but could not fall asleep, and impulsively took a knife and stabbed himself in the leg. He believes that it might kill him as he was bleeding a lot, so called 911. He reports difficulty with sleep for a couple of months, taking about 1-1/2 hours to fall asleep, but sleeping excessively, up to 13 hours. His only recent medication change is that amitriptyline was decreased, but then increased back to the previous dose because "I felt wonky in the head." He denies hallucinations. He states mood has been "pretty good" most of the time, but feels easily stressed and overwhelmed, with poor p.o. intake which he relates to not having a set daily schedule. He notes additional stressors of having to put some boundaries in place with 1 of his friends. He thinks it would be helpful to work on his daily structure and routine, as well as coping skills. He reports good medication compliance and denies side effects to his current medications. He has been on the same medication regimen for some time, and was discharged on the same doses when last on our unit in 03/2019. Physical Exam Psychiatric Orientation: alert, oriented x 3 and cooperative Apperance: appropriately dressed, appropriately groomed (mildly unkempt, hair appearing a bit messy) and appeared stated age Eye Contact: good eye contact Motor Behavior: no abnormal motor movements (observed while seated on bed) Speech: normal rate/rhythm/volume of speech Affect: + blunted affect (appearing subdued, but overtly depressed) and + constricted affect Mood: no depressed mood ("I'm ok") Thought Process: goal directed thought process, clear/coherent thought process and + concrete thought process Thought Content: reality based without delusions; not paranoid, no hopelessness and no worthlessness Suicidal Thoughts: denies suicidal thoughts, denies suicidal plan and denies suicidal intent Homicidal Thoughts: denies homicidal thoughts Hallucinations: no auditory hallucinations and no visual hallucinations Cognition: attention grossly intact and language grossly intact Estimated Intelligence: consistent with education level Insight: + fair insight Judgement: + fair judgement Vital Signs (Past 24 Hours) Last Vital Signs Temp 36.7 C 01/15/20 06:33 Pulse 93 H 01/15/20 06:33 Resp 18 01/15/20 06:33 BP 107/74 01/15/20 06:33 Pulse Ox 95 01/12/20 07:39 Principal Diagnosis - Schizoaffective disorder, bipolar type - Stab Wound Psychiatric Data 44-year-old male well-known to our unit with a history of schizoaffective disorder, bipolar type who was admitted voluntarily for inpatient psychiatric treatment on 01/12/2020 after presenting to the ED with suicidal ideation and having intentionally stabbed himself in the right thigh with a knife. Pt admitted to feeling increased anxiety and suicidal ideation, but states he became overwhelmed after he had stabbed himself and called 911. Pt admitted to increased stress related to the large amount of news/media he had been consuming recently and has likely also been affected by reduced structure, as he reports he "graduated" from the Psych Rehab program in which he had been participating. Pt does have a piano case and bench assembler, who was involved in treatment plan and discussion about ways to improve structure and support in the outpatient setting. Part of the conversation also included patient's awareness that he needed to find ways to reduce media/news consumption in order to reduce anxiety level. Pt attended group programming and was encouraging with peers. He engaged in conversation regarding medication adjustments. Given there was a rather clear stressor verbalized by the patient, the only medication adjustment was to reduce clonazepam dosing to once daily at HS, as patient had increased AM sedation that led to noticeable isolative behavior in the mornings but resolved by afternoon. Otherwise, home medications were continued and care was coordinated. Pt will continue with his current psychiatric prescriber and was referred for therapy through [facility] as well. Pt had admitted to resolution of SI for several days prior to discharge consideration. Based on review of patient's case and their current presentation, risk of harm to self or others is no longer perceived to be acute. Management of symptoms on an outpatient basis seems the most appropriate and least restrictive setting. Pt seems appropriate for discharge with recommendation for consistent follow-up with outpatient psychiatric prescriber, therapist and piano case and bench assembler. Instructions were provided to patient to follow-up with scheduled PCP appointment for removal of emmett to his right thigh. Pt verbalized understanding of discharge plan reviewed and is agreeable with plan to be discharged home today. Day of Discharge Assessment Patient's case was reviewed and discussed during morning reports with supervising psychiatrist, nursing, and social work. Staff report the patient was a positive participant in evening groups. He continues to be supportive of peers and behavior has been appropriate. Patient admits he is somewhat nervous about planned discharge today, but does feel ready to return home. Pt was reminded of a scheduled visit with his mobile psych therapist this afternoon. Pt was seen today to assess readiness for discharge. Pt states that he is doing well and is still interested in leaving to return home today. Pt stated "I did get a little jabbery in the evening, without the Klonopin in the morning." He denies increased anxiety or paranoia with the reduce dose of clonazepam yesterday. Pt is agreeable with continuing this medication adjustment until he is able to meet with his outpatient psychiatric prescriber. Pt denied suicidal ideation or other safety concerns related to discharge. He admits to feeling ready to return home and is aware of scheduled appointment this afternoon. He denies other needs or concerns prior to discharge. ROS: Constitutional: denied Cardiovascular: denied Respiratory: denied Gastrointestinal: denied Neurological: denied Psychiatric: denies symptoms other than stated above Total of at least 10 systems reviewed, pertinent positives as above and in HPI. Transition of Care Transition Of Care Record: was reviewed with the patient Advance Directives Advance Directives Information Provided: Yes Advance Directives: No Mental Health Advance Directive: No Advance Directives on File: No Living Will: No Power of Client Service Associate: No Advance Directives Reason:: Declines as Mental Health Visit. Risk Factors Assessment Presenting risk factors reviewed on discharge. Precipitating stressors mitigated by: admission for inpatient psychiatric observation and treatment, appropriate adjustments to medications to target symptoms, attendance of therapeutic treatment groups, development of healthy and effective coping strategies, involvement of outpatient supports, completion of a safety plan, and education on diagnoses. Pt has demonstrated improvement in condition with regard to improvement in anxiety level, resolution of SI, involvement of his piano case and bench assembler, and plan for increased outpatient supports through outpatient therapy referral. At this time, patient is requesting discharge and is no longer considered to be at acute risk of harm to himself or others. Pt will be discharged with recommendation for ongoing outpatient psychiatric treatment. Male: Yes : Yes Do You Have Access To A Gun?: No Health Problems: Yes Mental Health Diagnoses: Yes Substance Use Disorders: No Previous Attempt: Yes Family History of Suicide: No Previous Psychiatric Hospitalization: Yes Hopelessness: No Smoker: No Protective Factors Assessment : No Responsible for Young Children: No Employed: No Good Rapport with Provider: Yes Tobacco Cessation at Discharge Tobacco Cessation Medication Prescribed at Discharge: Not Applicable/Non-Smoker Total Time Total Time Spent: Greater Than 30 Minutes Total Time Includes: Examination of the patient, Discharge Planning, Medication Reconciliation and Communication with other providers Discharge Data Lab Results 01/12/20 01/12/20 01/12/20 00:37 00:37 00:37 WBC 6.11 RBC 4.17 L Hgb 13.3 L Hct 38.0 L MCV 91.1 MCH 31.9 MCHC 35.0 RDW Std Deviation 40.5 RDW Coeff of Levy 12.2 Plt Count 199 MPV 9.4 Immature Gran % (Auto) 0.3 Neut % (Auto) 54.1 Lymph % (Auto) 28.5 Austin % (Auto) 16.9 Eos % (Auto) 0.0 Baso % (Auto) 0.2 Neut # (Auto) 3.31 Lymph # (Auto) 1.74 Austin # (Auto) 1.03 H Eos # (Auto) 0.00 Baso # (Auto) 0.01 Immature Gran # (Auto) 0.02 Sodium 140 Potassium 4.0 Chloride 108 H Carbon Dioxide 24 Anion Gap 8.0 BUN 20 H Creatinine 0.97 Est Cr Clr Drug Dosing 107.4 Est GFR ( Amer) 110.4 Est GFR (Non-Af Amer) 95.2 BUN/Creatinine Ratio 20.3 H Glucose 96 Fasting Glucose Calcium 8.9 Total Bilirubin 0.2 AST 19 ALT 38 Alkaline Phosphatase 52 Total Protein 7.0 Albumin 3.4 Globulin 3.6 Albumin/Globulin Ratio 0.9 Triglycerides Cholesterol LDL Cholesterol, Calc VLDL Cholesterol, Calc HDL Cholesterol Cholesterol/HDL Ratio TSH 1.820 Urine Color Urine Appearance Urine pH Ur Specific [place] Urine Protein Urine Glucose (UA) Urine Ketones Urine Blood Urine Nitrite Urine Bilirubin Urine Urobilinogen Ur Leukocyte Esterase Urine WBC (Auto) Urine RBC (Auto) U Hyaline Cast (Auto) U Epithel Cells (Auto) Urine Bacteria (Auto) Salicylates < 1.7 L Urine Opiates Screen Ur Methadone, Qual Acetaminophen < 2 L Urine Barbiturates Valproic Acid Ur Phencyclidine (PCP) U Amphetamin/Meth Scrn MDMA (Ecstasy) Screen U Benzodiazepines Scrn Ur Cocaine Metabolite U Marijuana (THC) Screen Ethyl Alcohol mg/dL 01/12/20 01/12/20 01/12/20 00:37 00:37 00:37 WBC RBC Hgb Hct MCV MCH MCHC RDW Std Deviation RDW Coeff of Levy Plt Count MPV Immature Gran % (Auto) Neut % (Auto) Lymph % (Auto) Austin % (Auto) Eos % (Auto) Baso % (Auto) Neut # (Auto) Lymph # (Auto) Austin # (Auto) Eos # (Auto) Baso # (Auto) Immature Gran # (Auto) Sodium Potassium Chloride Carbon Dioxide Anion Gap BUN Creatinine Est Cr Clr Drug Dosing Est GFR ( Amer) Est GFR (Non-Af Amer) BUN/Creatinine Ratio Glucose Fasting Glucose Calcium Total Bilirubin AST ALT Alkaline Phosphatase Total Protein Albumin Globulin Albumin/Globulin Ratio Triglycerides Cholesterol LDL Cholesterol, Calc VLDL Cholesterol, Calc HDL Cholesterol Cholesterol/HDL Ratio TSH Urine Color Yellow Urine Appearance Clear Urine pH 6.0 Ur Specific [place] 1.015 Urine Protein Negative Urine Glucose (UA) Negative Urine Ketones Trace H Urine Blood 1+ H Urine Nitrite Negative Urine Bilirubin Negative Urine Urobilinogen Negative Ur Leukocyte Esterase Negative Urine WBC (Auto) 0 Urine RBC (Auto) 10-30 H U Hyaline Cast (Auto) 0 U Epithel Cells (Auto) 0-5 Urine Bacteria (Auto) Negative Salicylates Urine Opiates Screen Neg Ur Methadone, Qual Neg Acetaminophen Urine Barbiturates Neg Valproic Acid Ur Phencyclidine (PCP) Neg U Amphetamin/Meth Scrn Neg MDMA (Ecstasy) Screen Neg U Benzodiazepines Scrn Neg Ur Cocaine Metabolite Neg U Marijuana (THC) Screen Neg Ethyl Alcohol mg/dL < 3.0 01/12/20 01/14/20 08:13 07:44 WBC RBC Hgb Hct MCV MCH MCHC RDW Std Deviation RDW Coeff of Levy Plt Count MPV Immature Gran % (Auto) Neut % (Auto) Lymph % (Auto) Austin % (Auto) Eos % (Auto) Baso % (Auto) Neut # (Auto) Lymph # (Auto) [place] # (Auto) Eos # (Auto) Baso # (Auto) Immature Gran # (Auto) Sodium Potassium Chloride Carbon Dioxide Anion Gap BUN Creatinine Est Cr Clr Drug Dosing Est GFR ( Amer) Est GFR (Non-Af Amer) BUN/Creatinine Ratio Glucose Fasting Glucose 98 Calcium Total Bilirubin AST ALT Alkaline Phosphatase Total Protein Albumin Globulin Albumin/Globulin Ratio Triglycerides 93 Cholesterol 155 LDL Cholesterol, Calc 83 VLDL Cholesterol, Calc 19 HDL Cholesterol 53 Cholesterol/HDL Ratio 3 TSH Urine Color Urine Appearance Urine pH Ur Specific [place] Urine Protein Urine Glucose (UA) Urine Ketones Urine Blood Urine Nitrite Urine Bilirubin Urine Urobilinogen Ur Leukocyte Esterase Urine WBC (Auto) Urine RBC (Auto) U Hyaline Cast (Auto) U Epithel Cells (Auto) Urine Bacteria (Auto) Salicylates Urine Opiates Screen Ur Methadone, Qual Acetaminophen Urine Barbiturates Valproic Acid 96 Ur Phencyclidine (PCP) U Amphetamin/Meth Scrn MDMA (Ecstasy) Screen U Benzodiazepines Scrn Ur Cocaine Metabolite U Marijuana (THC) Screen Ethyl Alcohol mg/dL Hospital Course (1) Stab wound: 01/11 -3 cm stab wound on his right mid thigh was irrigated, explored, and repaired with 6 emmett in the ER. Keep clean and dry, change dressing as needed. Clarify wound care instructions with KRISTYN Styles who saw him in the ER, as well as timing for staple removal: Keep wound clean and dry. No water on the area for 12-24 hrs then no soaking until emmett removed. Do not allow any crusting or dried blood to accumulate on emmett. If this occurs, use a 1:1 solution of hydrogen peroxide/water on a Q-tip to clean the wound. Use an antibiotic ointment for 3-4 days, then let wound dry. Staple removal in 8 days. Return sooner for any signs of infection (increasing redness, swelling, drainage). Ice and elevate for swelling and pain. Tylenol 1000 mg every 6 hrs for pain. Keep covered when in sun until emmett removed then SPF 50 or higher for one year. Vitamin E oil if desired two weeks after staple removal for reduction of scar. 01/13 - Wound examined by nursing yesterday evening after patient had showered. Reportedly, emmett were intact and wound edges were well-approximated. Bacitracin ordered to prevent infection. (2) Suicide attempt: 01/11 -voluntary psychiatric hospitalization on a locked unit, suicide checks for safety. -Attending participating groups and therapy, work on healthy coping skills and discharge safety plan. -Involve outpatient supports including his clinicians, BCM, and offer family meeting with friends and/or family. 01/12 -care coordinated with PCM, Titi Castro, who visited with patient on the unit yesterday and will return to see him tomorrow. Explore ways to increase outpatient support/structure. 01/13 - Pt denying SI today, maintains that stabbing himself was "impulsive" (3) Schizoaffective disorder: 01/11 -longstanding diagnosis of schizoaffective disorder, bipolar type. Continue clozapine 300 mg at bedtime, amitriptyline 100 mg at bedtime, Depakote 1500 mg at bedtime, and clonazepam 0.5 mg twice daily. Depakote level 96 this morning. -Last fasting labs were done in 05/2018 and were notable for triglycerides 179 and glucose 114. Will reorder for tomorrow for monitoring on an atypical antipsychotic. -Get records from outpatient [facility] at [facility], and coordinate care. -Patient feels his medications are helpful and would like to start by working on coping skills and his daily structure. If symptoms are not improving, will consider medication adjustments. 01/12 -fasting labs ordered for tomorrow as patient had orange juice. Encourage patient to be out of bed during the day 01/13 - Pt agreed to holding AM dosing of clonazepam in order to reduce daytime fatigue - continue remainder of medication regimen, including HS dose of clonazepam - Fasting labs reviewed, all values WNL - Meeting this afternoon with piano case and bench assembler to discuss discharge planning and ways to improve structure/routine in the outpatient setting (4) Hematuria: 01/11-noted on UA in the ER; follow-up with PCP -Patient reports this is a longstanding problem and that work-up has been negative. (5) Hyperlipidemia: 01/11 -continue home dose of simvastatin. Check LFTs as above. (6) Hypertension: 01/11 -continue home doses of lisinopril and propanolol Mental Health & Subst Abuse Tx Psychiatrist Name of Psychiatrist: Sherly Lundberg Psychiatrist's Date of Appointment with Psychiatrist: 01/23/20 Time of Appointment with Psychiatrist: 10:00 a.m. Psychiatric Appointment Comment: In person appointment Psychiatrist Release of Information: Obtained, Reviewed and Signed Therapist Name of Therapist: Sherly Therapist's Therapy Appointment Comment: Will contact you to schedule with a therapist Therapist Release of Information: Obtained, Reviewed and Signed Private Duty Rn Name of Private Duty Rn: [facility] Titi Barnhartyer Phone Number for Private Duty Rn: [phone] Date of Appointment with Private Duty Rn: 01/21/20 Time of Appointment with Private Duty Rn: 1:00 p.m. Case Management Appointment Comment: Will meet you at your apartment Private Duty Rn Release of Information: Obtained, Reviewed and Signed Post Discharge Appointments Primary Care Physician Name Of Family Doctor: uSsie Liao [facility] Date of Appointment with PCP: 01/20/20 Time of Appointment with PCP: 2:20 p.m. Provider Appointment Comment: [place] [id number] Primary Care Release of Information: Obtained, Reviewed and Signed Partial or Psych Rehab Name of Partial or Psych Rehab: [facility] Phone Number of Partial or Psych Rehab: [phone] Date of Appointment at Partial or Psych Rehab: 01/15/20 Time of Appointment at Partial or Psych Rehab: 1:00 p.m. Partial or Psych Rehab Appointment Comment: Will meet with you per routine schedule Release of Information for Partial or Psych Rehab: Obtained, Reviewed and Signed Smoking Cessation Counseling Tobacco Cessation Medication Prescribed at Discharge: Not Applicable/Non-Smoker Contact Information Discharge Discharge [address] [address] [place] [address], [address] [address] Discharge Plan Discharge Items Patient Disposition: Home - Self-Care Reason For Visit: SCHIZOAFFECTIVE Discharge Diagnosis: - Schizoaffective disorder - Stab wound/Suicidal Ideation Condition on Discharge: Fair Activity: Resume your previous activity Non-emergency contact: Primary Care Provider, Psychiatrist, Therapist and Crane Service Technician Call non-emergency contact if: you have any medication questions and your symptoms worsen Follow-up/Referrals: Nuvia Liao DO [Primary Care Provider] - Diet: Regular Addtl Attending Provider Instructions: SPECIAL CARE INSTRUCTIONS: 1. Follow through with your scheduled aftercare appointments. If unable to keep an appointment, please call to reschedule. 2. Take your medication only as prescribed. Medication should not be changed or stopped without the approval of your doctor. In the event of worsening symptoms or concerns about side effects, contact your doctor immediately. 3. Utilize new healthy coping skills, anger management skills, and stress management skills learned during your hospitalization. Journal feelings and process them with a support person. Identify stressors or situations that may result in relapse, deterioration or inappropriate behaviors and develop a plan to deal with those issues. 4. If your coping skills are ineffective and you are in crisis, contact your outpatient providers for direction. If unable to reach your providers, please call the [facility] CRISIS LINE AT , go to the [facility] walk-in center at [address], [address], [place], or go to the closest Emergency Room. 5. Avoid alcohol and un-prescribed drugs. 6. You have been provided with the Mental Health Advance Directives Pamphlet for your review. AFTERCARE APPOINTMENTS: * Follow-up with your PCP on 01/20/2020 at 2:20pm for appointment to remove the emmett from your wound. * Please call your insurance company prior to your scheduled appointment to confirm your aftercare providers are covered. Take your insurance information to your appointments. WHO TO CALL AND WHEN: Medical Emergencies: For questions or emergencies related to your hospital stay, please contact the Inpatient Behavioral Health Unit at [phone]. A psychiatric tech is on-call 04/12 for the Behavioral Health Unit for emergencies At any time you feel your situation is an emergency, you may also call 911 immediately. Pending Studies at Discharge: No Stand-Alone Forms: My [facility] weave energy, Smoking Cessation, Suicide Prevention Resources Medications and DC Order Prescriptions: New clonazepam 0.5 mg Tablet 0.5 mg PO HS 30 Days Qty: 30 RF: 0 bacitracin 500 unit/gram Ointment 1 applic EXT QID PRN (Reason: skin infection) Qty: 14 RF: 0 Continued lisinopril 5 mg Tablet 5 mg PO DAILY RF: 0 simvastatin [Zocor] 20 mg Tablet 20 mg PO HS RF: 0 amitriptyline 100 mg Tablet 100 mg PO HS RF: 0 cholecalciferol (vitamin D3) [Vitamin D3] 1,000 unit Capsule 1,000 unit PO DAILY RF: 0 clozapine [Clozaril] 100 mg Tablet 300 mg PO HS RF: 0 divalproex [Depakote ER] 500 mg Tablet Extended Release 24 Hr 1,500 mg PO HS RF: 0 docusate sodium [DOK] 100 mg Capsule 100 mg PO BID RF: 0 Changed propranolol 10 mg Tablet 10 mg PO 1200 Qty: 0 RF: 0 Discontinued clonazepam [Klonopin] 0.5 mg Tablet 0.5 mg PO BID RF: 0 Discharge Orders: Discharge Order (Routine); Ordered 01/15/20 Ordered By: Rossi Montes Admission Data Admit Date/Time: 01/12/20 07:15 Attending Provider: Soco Milner Admit Provider: Soco Milner Primary Care Provider: Nuvia Liao Other Interventions: Discharge Summary Assessment (RN) Last Done: 01/15/20 10:10 PSY Interdisciplinary Discharge Planning Last Done: 01/15/20 09:17 Coding Level of Care Code 00107 D/C day mgmt > 30 min Diagnoses Stab wound T14.8XXA Suicide attempt T14.91XA Schizoaffective disorder F25.1 Schizoaffective disorder type: depressive Hematuria R31.9 Hyperlipidemia E78.5 Hypertension I10
== END 2020-01-15 11:05 | disposition home or self-care (01) | DRG 885 ==
LOC: ED 00:05 → 3S 07:15

== ENCOUNTER 2020-01-21 11:58 | Inpatient (IN) ==
[2020-01-21] MEDS ORDERED: PROPRANOLOL HCL 10 MG TAB PO STA (12:50)
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
[2020-01-21 12:57] LABS: Hematocrit (blood only) 40.4 % (42-52); Hemoglobin 14.2 g/dL (14.0-18.0); Immature Granulocytes # (auto) 0.03 K/uL (0.00-0.02); Immature Granulocytes % (auto) 0.4 %; Lymphocytes # (auto) 1.75 K/uL (1.2-3.4); Lymphocytes % (auto) 23.6 %; Mean Corpuscular Hemoglobin 32.1 pg (25-34); Mean Corpuscular Hgb Conc 35.1 g/dL (32-36); Mean Corpuscular Volume 91.2 fL (80-100); Mean Platelet Volume 9.2 fL (7.4-10.4); Monocytes # (auto) 1.05 K/uL (0.11-0.59); Monocytes % (auto) 14.2 %; Neutrophils # (auto) 4.58 K/uL (1.4-6.5); Neutrophils % (auto) 61.8 %; Platelet Count 261 K/uL (130-400); RDW Coefficient of Variation 12.3 % (11.5-14.5); RDW Standard Deviation 41.2 fL (36.4-46.3); Red Blood Count 4.43 M/uL (4.7-6.1); White Blood Count 7.41 K/uL (4.8-10.8)
[2020-01-21 13:15] LABS: Albumin Level 3.8 gm/dl (3.4-5.0); BUN Creatinine Ratio 15.9 (10-20); Calcium 9.3 mg/dl (8.5-10.1); Est GFR (Non-African American) 94.1; Potassium 4.3 mmol/L (3.5-5.1)
[2020-01-21 13:25] LABS: Bilirubin,Total 0.3 mg/dl (0.2-1); Thyroid Stimulating Hormone 1.69 uIu/ml (0.300-4.500); Total Protein 7.8 gm/dl (6.4-8.2)
[2020-01-21 13:34] LABS: Acetaminophen < 2 ug/ml (10-30); Salicylate < 1.7 mg/dl (2.8-20); Valproic Acid 89 mcg/ml (50-100)
[2020-01-21 13:56] LABS: Appearance Urine Clear (Clear); Bacteria Urine Automated Negative (Negative); Bilirubin Urine Negative (Negative); Blood Urine 1+ (Negative); Cast Urine Automated 0 /lpf (0-5); Color Urine Yellow; Epithelial Cell Urine Auto 0-5 /lpf (0-5); Glucose Urine UA Negative (Negative); Ketones Urine Negative (Negative); Leukocyte Esterase Urine Negative (Negative); Nitrite Urine Negative (Negative); Protein Urine Negative (Negative); Specific Gravity Urine 1.011 (1.000-1.030); Urobilinogen Urine Negative (Negative); WBC Urine Automated 0 /hpf (0-5)
[2020-01-21 14:23] LABS: Amphetamines+Metham, Urine Neg (Neg); Barbiturates, Urine Neg (Neg); Benzodiazepine, Urine Neg (Neg); Cocaine, Urine Neg (Neg); MDMA (Ecstacy), Urine Neg (Neg); Methadone, Urine Neg (Neg); Opiate, Urine Neg (Neg); Phencyclidine, Urine Neg (Neg)
[2020-01-21] MEDS ORDERED: BISMUTH SUBSALICYLATE PER ML OMNICELL CHARGE PO PRN (16:49)
[2020-01-21] MEDS ORDERED: MAGNESIUM HYDROXIDE SUSP 30 ML UDC PO PRN (16:49)
[2020-01-21] MEDS ORDERED: ALUMINUM/MAGNESIUM SUSP 30 ML UDC PO PRN (16:49)
[2020-01-21] MEDS ORDERED: SODIUM CHLORIDE 0.65% NA SOLN 45 ML (OCEAN) PRN (16:49)
[2020-01-21] MEDS ORDERED: BACITRACIN OINT 15 GM TUBE EXT PRN (16:55)
[2020-01-21] MEDS: ACETAMINOPHEN 325 MG TAB PO PRN (19:53)
[2020-01-21] MEDS: DOCUSATE SODIUM 100 MG CAP PO SCH (22:00)
[2020-01-21] MEDS: clonazePAM 0.5 MG TAB PO SCH (22:00)
[2020-01-21] MEDS: cloZAPine 100 MG TAB PO SCH (22:01)
[2020-01-21] MEDS: AMITRIPTYLINE HCL 100 MG TAB PO SCH (22:01)
[2020-01-21] MEDS: DIVALPROEX EXTENDED RELEASE 500 MG TAB PO SCH (22:01)
[2020-01-21] MEDS: SIMVASTATIN 20 MG TAB PO SCH (22:01)
[2020-01-22] MEDS: CHOLECALCIFEROL 1,000 UNITS 25 MCG TAB PO SCH (08:15)
[2020-01-22] MEDS: lisinopriL 5 MG TAB PO SCH (08:15)
[2020-01-22] MEDS: DOCUSATE SODIUM 100 MG CAP PO SCH ×2 (08:15→22:08)
[2020-01-22] MEDS: clonazePAM 0.5 MG TAB PO SCH ×2 (08:15→22:08)
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
[2020-01-22] MEDS: PROPRANOLOL HCL 10 MG TAB PO SCH (13:20)
[2020-01-22] MEDS ORDERED: POLYETHYLENE (MIRALAX) 17 GM PACK PO PRN (13:39)
[2020-01-22] MEDS: ACETAMINOPHEN 325 MG TAB PO PRN (17:58)
[2020-01-22] MEDS: SIMVASTATIN 20 MG TAB PO SCH (22:08)
[2020-01-22] MEDS: cloZAPine 100 MG TAB PO SCH (22:08)
[2020-01-22] MEDS: AMITRIPTYLINE HCL 100 MG TAB PO SCH (22:08)
[2020-01-22] MEDS: DIVALPROEX EXTENDED RELEASE 500 MG TAB PO SCH (22:08)
[2020-01-23] MEDS: lisinopriL 5 MG TAB PO SCH (09:07)
[2020-01-23] MEDS: DOCUSATE SODIUM 100 MG CAP PO SCH ×2 (09:07→22:00)
[2020-01-23] MEDS: CHOLECALCIFEROL 1,000 UNITS 25 MCG TAB PO SCH (09:07)
[2020-01-23] MEDS: clonazePAM 0.5 MG TAB PO SCH ×2 (09:10→22:00)
--- NOTE | 2020-01-23 11:53 | Psychiatric Progress Note ---
Date of Service January 23, 2020 Impression / Recommendations Impression Admission H&P Impression - schizoaffective d/o with recent suicide attempt leading to recent 3Sadmsision with discharge one week ago pt admitted now for inturssive thoughts about burniing down his apartment over being overhwelmed the disorganizaiton of it and anxiety worsened with klonopin lowered last appt to 0.5mg qday from 0.5mg BID (1) Schizoaffective disorder: 01/21 -longstanding diagnosis of schizoaffective disorder, bipolar type. Continue clozapine 300 mg at bedtime, amitriptyline 100 mg at bedtime, Depakote 1500 mg at bedtime, and clonazepam 0.5 mg twice daily that was recently lowered to 0.5mg qday. Raised Clonazepam back to 0.5mg bid -moved appt for psychiatric med management from tomorrow to next Sunday -Last fasting labs were done 01/14/2020 and were wnl given this is only a week ago no need to repeat these labs at this time -Get records from outpatient [facility] at [facility], and coordinate care. -Patient feels his medications are helpful and would like to start by working on coping skills and his daily structure. If symptoms are not improving, will consider medication adjustments. 01/22 - Continue current medication regimen, including clonazepam 0.5mg BID - Pt reports he has communicated with his orthopedic's office which has been his goal and has allowed for somewhat reduced anxiety levels - Due to recent and very impulsive suicide attempt and recent medication adjustments, it seems reasonable to offer continued structure and support of inpatient setting until patient is able to contract for safety and ready for discharge home (2) Hypertension: 01/21 - continue home doses of lisinopril and propranolol (3) Hyperlipidemia: 01/21 -continue home dose of simvastatin. LFT's WNL within past 2 weeks (4) Hematuria: 01/21 hematuria with last recent admission with plan to address further with PCP and this is same plan currently Protective Factors Assessment Employed: No Interval History Identifying Information ROGER SCHMIDT is a 44-year-old M who currently lives in [place] alone, has a history of schizoaffective disorder, and was admitted on a 201 voluntary commitment for intrusive disturbing thoughts of burning down his apartment on 01/21/20 at 16:52. Chief Complaint "Um, yeah. Let's go talk! I'd like to talk." Review of Systems Notes Constitutional: denied Cardiovascular: denied Respiratory: denied Gastrointestinal: denied Neurological: denied Psychiatric: denies symptoms other than stated above Total of at least 10 systems reviewed, pertinent positives as above and in HPI. Sleep Information Total Hours of Sleep: 7 Sleep Comments: pt on q-15 minute checks Meal Information Percent Meal Consumed - Breakfast: 90 Percent Meal Consumed - Lunch: 80 Percent Meal Consumed - Dinner: 90 Subjective Subjective Patient was seen & assessed and interval progress reviewed with treatment team. Staff report the patient admits to improvement in anxiety and mood since resuming his previous dose of clonazepam. Although he is admitting to improvement, he feels he is not yet ready to return home and admits to other goals prior to discharge. Pt reports feeling particularly overwhelmed about an upcoming surgery to repair his meniscus, which has not yet been scheduled. Pt is to meet with his BCM this afternoon on the unit. Pt was seen today to assess progress since admission. Pt was very pleasant and conversant - making superficial conversation about his interests which include numerous physical activities. Within this conversation, he shares that he is happy he was able to touch base with his orthopedic's office to schedule his surgery. Pt reports he had enjoyed dancing and other activities, which he has not been able to do as a result of his knee injury. While patient is excited to have the surgery scheduled, he does admit to feeling a little defeated that he "wasted time with physical therapy if the surgery should have just been done in the first place." He does admit his mood is improved and his anxiety has lessened with these new developments. Pt reports desire to stay in the hospital through the weekend for additional support. He denies SI presently, and denies intrusive thoughts to harm self and others today. He denies other needs or concerns at this time. Physical Exam Psychiatric Orientation: alert, oriented x 3 and cooperative (and pleasant) Apperance: appropriately dressed, appropriately groomed and appeared stated age Eye Contact: good eye contact Motor Behavior: steady gait and station and no abnormal motor movements Speech: normal rate/rhythm/volume of speech (rather animated, rambling at times - somewhat rapid speech) Affect: euthymic affect Mood: no depressed mood Thought Process: goal directed thought process and clear/coherent thought process Thought Content: reality based without delusions; not paranoid and no hopelessness Suicidal Thoughts: denies suicidal thoughts and denies suicidal intent Homicidal Thoughts: denies homicidal thoughts Hallucinations: no auditory hallucinations and no visual hallucinations Cognition: attention grossly intact and language grossly intact Estimated Intelligence: consistent with education level Insight: + limited insight Judgement: + limited judgement Vital Signs (Past 24 Hours) Last Vital Signs Temp 36.7 C 01/23/20 06:36 Pulse 83 01/23/20 06:37 Resp 18 01/23/20 06:36 BP 114/70 01/23/20 06:37 Pulse Ox 100 01/21/20 17:21 Results & Data ([facility]) Current Inpatient Medications Current Inpatient Medications: Current Inpatient Medications Acetaminophen (Acetaminophen 325 Mg Tab) 650 mg PO Q4H PRN PRN Reason: Headache or Minor Fever Stop: 02/20/20 16:48 Last Admin: 01/22/20 17:58 Dose: 650 mg Documented by: Al Hydrox/Mg Hydrox/Simethicone (Aluminum/Magnesium Susp 30 Ml Udc) 30 ml PO Q4H PRN PRN Reason: GI Upset Stop: 02/20/20 16:48 Amitriptyline HCl (Amitriptyline Hcl 100 Mg Tab) 100 mg PO HS CALI Stop: 02/20/20 20:59 Last Admin: 01/22/20 22:08 Dose: 100 mg Documented by: Bacitracin (Bacitracin Oint 15 Gm Tube) 1 appln EXT QID PRN PRN Reason: skin infection Stop: 02/20/20 16:54 Bismuth Subsalicylate (Bismuth Subsalicylate Per Ml Omnicell Charge) 15 ml PO PRN PRN PRN Reason: Loose Stool Stop: 02/20/20 16:48 Clonazepam (Clonazepam 0.5 Mg Tab) 0.5 mg PO BID CALI Stop: 02/20/20 20:59 Last Admin: 01/23/20 09:10 Dose: 0.5 mg Documented by: Clozapine (Clozapine 100 Mg Tab) 300 mg PO HS CALI Stop: 02/20/20 20:59 Last Admin: 01/22/20 22:08 Dose: 300 mg Documented by: Divalproex Sodium (Divalproex Extended Release 500 Mg Tab) 1,500 mg PO HS CALI Stop: 02/20/20 20:59 Last Admin: 01/22/20 22:08 Dose: 1,500 mg Documented by: Docusate Sodium (Docusate Sodium 100 Mg Cap) 100 mg PO BID CALI Stop: 02/20/20 20:59 Last Admin: 01/23/20 09:07 Dose: 100 mg Documented by: Hydroxyzine HCl (Hydroxyzine Hcl 25 Mg Tab) 50 mg PO HSZ PRN PRN Reason: Insomnia Stop: 02/20/20 16:48 Hydroxyzine HCl (Hydroxyzine Hcl 25 Mg Tab) 25 mg PO Q4H PRN PRN Reason: Anxiety Stop: 02/20/20 16:48 Lisinopril (Lisinopril 5 Mg Tab) 5 mg PO DAILY CALI Stop: 02/21/20 08:59 Last Admin: 01/23/20 09:07 Dose: 5 mg Documented by: Magnesium Hydroxide (Magnesium Hydroxide Susp 30 Ml Udc) 30 ml PO DAILY PRN PRN Reason: Constipation Stop: 02/20/20 16:48 Last Admin: 01/21/20 22:02 Dose: 30 ml Documented by: Polyethylene Glycol (Polyethylene (Miralax) 17 Gm Pack) 17 gm PO DAILY PRN PRN Reason: Constipation Stop: 02/21/20 13:38 Last Admin: 01/22/20 14:28 Dose: 17 gm Documented by: Propranolol HCl (Propranolol Hcl 10 Mg Tab) 10 mg PO 1200 CALI Stop: 02/21/20 11:59 Last Admin: 01/22/20 13:20 Dose: 10 mg Documented by: Simvastatin (Simvastatin 20 Mg Tab) 20 mg PO HS CALI Stop: 02/20/20 20:59 Last Admin: 01/22/20 22:08 Dose: 20 mg Documented by: Sodium Chloride (Sodium Chloride 0.65% Na Soln 45 Ml ([place])) 1 - 2 sprays NA PRN PRN PRN Reason: Nasal Dryness/Congestion Stop: 02/20/20 16:48 Vitamin D (Cholecalciferol 1,000 Units 25 Mcg Tab) 1,000 units PO DAILY CALI Stop: 02/21/20 08:59 Last Admin: 01/23/20 09:07 Dose: 1,000 units Documented by: Mental Health & Subst Abuse Tx Psychiatrist Name of Psychiatrist: Sherly Lundberg Psychiatrist's Date of Appointment with Psychiatrist: 01/29/20 Time of Appointment with Psychiatrist: 10:30 a.m. Psychiatric Appointment Comment: [place] [facility] Therapist Name of Therapist: Yandel Rivero Therapist's Date of Therapist Appointment: 01/27/20 Time of Therapist Appointment: 2:00 Therapy Appointment Comment: [place] [facility] Defensive Line Coach Name of Defensive Line Coach: [employer] - Titi Gloria Phone Number for Defensive Line Coach: [phone] Date of Appointment with Defensive Line Coach: 01/28/20 Time of Appointment with Defensive Line Coach: 1:00 p.m. Case Management Appointment Comment: Will meet with you at your apartment Post Discharge Appointments Primary Care Physician Name Of Family Doctor: Susie Liao Primary Care Date of Appointment with PCP: 07/19/20 Time of Appointment with PCP: 3:00 p.m. Provider Appointment Comment: [address] [place] [address] [place] [address] Partial or Psych Rehab Name of Partial or Psych Rehab: [facility] - [facility] Phone Number of Partial or Psych Rehab: [phone] Date of Appointment at Partial or Psych Rehab: 01/29/20 Time of Appointment at Partial or Psych Rehab: 1:00 p.m. Partial or Psych Rehab Appointment Comment: Will meet with you per routine schedule Contact Information Discharge Discharge Address: [address] [place] [address], [address] [place] [address] (1) Schizoaffective disorder Schizoaffective disorder type: depressive Qualified Code(s): F25.1 - Schizoaffective disorder, depressive type
[2020-01-23] MEDS: PROPRANOLOL HCL 10 MG TAB PO SCH (12:38)
[2020-01-23] MEDS: DIVALPROEX EXTENDED RELEASE 500 MG TAB PO SCH (22:03)
[2020-01-23] MEDS: cloZAPine 100 MG TAB PO SCH (22:03)
[2020-01-23] MEDS: SIMVASTATIN 20 MG TAB PO SCH (22:04)
[2020-01-23] MEDS: AMITRIPTYLINE HCL 100 MG TAB PO SCH (22:04)
[2020-01-24] MEDS: lisinopriL 5 MG TAB PO SCH (09:05)
[2020-01-24] MEDS: clonazePAM 0.5 MG TAB PO SCH ×2 (09:05→21:52)
[2020-01-24] MEDS: CHOLECALCIFEROL 1,000 UNITS 25 MCG TAB PO SCH (09:05)
[2020-01-24] MEDS: DOCUSATE SODIUM 100 MG CAP PO SCH ×2 (09:05→21:52)
--- NOTE | 2020-01-24 09:26 | Psychiatric Progress Note ---
Date of Service January 24, 2020 Impression / Recommendations Impression Admission H&P Impression - schizoaffective d/o with recent suicide attempt leading to recent 3Sadmsision with discharge one week ago pt admitted now for inturssive thoughts about burniing down his apartment over being overhwelmed the disorganizaiton of it and anxiety worsened with klonopin lowered last appt to 0.5mg qday from 0.5mg BID (1) Schizoaffective disorder: 01/21 -longstanding diagnosis of schizoaffective disorder, bipolar type. Continue clozapine 300 mg at bedtime, amitriptyline 100 mg at bedtime, Depakote 1500 mg at bedtime, and clonazepam 0.5 mg twice daily that was recently lowered to 0.5mg qday. Raised Clonazepam back to 0.5mg bid -moved appt for psychiatric med management from tomorrow to next Sunday -Last fasting labs were done 01/14/2020 and were wnl given this is only a week ago no need to repeat these labs at this time -Get records from outpatient [facility] at [facility], and coordinate care. -Patient feels his medications are helpful and would like to start by working on coping skills and his daily structure. If symptoms are not improving, will consider medication adjustments. 01/22 and 01/23 - Continue current medication regimen, including clonazepam 0.5mg BID - Pt reports he has communicated with his orthopedic's office which has been his goal and has allowed for somewhat reduced anxiety levels - Due to recent and very impulsive suicide attempt and recent medication adjustments, it seems reasonable to offer continued structure and support of inpatient setting until patient is able to contract for safety and ready for discharge home anticipated for Sunday01/26/20 In that time he is attending groups and working coping skills to manage distress so that if he again feels distressed he is more prepared. (2) Hypertension: 01/21 - continue home doses of lisinopril and propranolol (3) Hyperlipidemia: 01/21 -continue home dose of simvastatin. LFT's WNL within past 2 weeks (4) Hematuria: 01/21 hematuria with last recent admission with plan to address further with PCP and this is same plan currently Protective Factors Assessment Employed: No Interval History Identifying Information ROGER SCHMIDT is a 44-year-old M who currently lives in [place] alone, has a history of schizoaffective disorder, and was admitted on a 201 voluntary commitment for intrusive disturbing thoughts of burning down his apartment on 01/21/20 at 16:52. Chief Complaint "I am feeling better". Review of Systems Sleep Information Total Hours of Sleep: 6 Sleep Comments: pt on q-15 minute checks Meal Information Percent Meal Consumed - Breakfast: 90 Percent Meal Consumed - Lunch: 100 Percent Meal Consumed - Dinner: 100 Subjective Subjective Patient was seen & assessed and interval progress reviewed with nursing and social work. Patient is engaged in the milieu and attending groups, sleeping overnight, eating meals well Met with markell who said "i feel much better back on my Klonopin, I have my surgery appointment scheduled for 02/01 and glad about that" He denies feeling depressed, future oriented "not having any impulsive thoughts." Agrees that he is sleeping and eating well. He states "I do feel anxious about leaving here, trying to prepare myself." He notes otherwise he is less anxious and less restless than when he came. He is looking forward to attending community group this AM and remaining groups through the day. He states his bowels are moving every other day, no straining, easy to push out. Denies other physical concerns today other than residual knee pain. Denies side effects to medications. Physical Exam Psychiatric Orientation: alert, oriented to person, oriented to place and cooperative Apperance: + disheveled dressed in worn t-shirt and hospital pants, hair appears clean but unkempt Eye Contact: good eye contact Motor Behavior: steady gait and station, no abnormal motor movements and + tremor (slight tremor of his head); n EPS and n akathisia Speech: normal rate/rhythm/volume of speech Affect: + anxious affect seems tentative and eager to communicate and yet mildly anxious in his manner of speaking, smiles socially, non-labile "better" with midly anxious demeanor that he also endorses Thought Process: clear/coherent thought process focussed on future and getting surgery process taken care of, feeling anxious about discharge but has plan on how to work towards this while he completes his time on the inpatient unit Suicidal Thoughts: denies suicidal thoughts Homicidal Thoughts: denies homicidal thoughts Hallucinations: no auditory hallucinations Cognition: recent memory grossly intact and attention grossly intact concrete manner, consistent with level of education Insight: + fair insight Judgement: + fair judgement Vital Signs (Past 24 Hours) Last Vital Signs Temp 36.7 C 01/24/20 06:39 Pulse 93 H 01/24/20 06:39 Resp 18 01/24/20 06:39 BP 132/91 01/24/20 06:39 Pulse Ox 100 01/21/20 17:21 Reviewed physical exam from Dr. Alva in the ER of encounter tied to this admission and consider as sufficient and appropriate for this Results & Data ([facility]) Current Inpatient Medications Current Inpatient Medications: Current Inpatient Medications Acetaminophen (Acetaminophen 325 Mg Tab) 650 mg PO Q4H PRN PRN Reason: Headache or Minor Fever Stop: 02/20/20 16:48 Last Admin: 01/22/20 17:58 Dose: 650 mg Documented by: Al Hydrox/Mg Hydrox/Simethicone (Aluminum/Magnesium Susp 30 Ml Udc) 30 ml PO Q4H PRN PRN Reason: GI Upset Stop: 02/20/20 16:48 Amitriptyline HCl (Amitriptyline Hcl 100 Mg Tab) 100 mg PO HS CALI Stop: 02/20/20 20:59 Last Admin: 01/23/20 22:04 Dose: 100 mg Documented by: Bacitracin (Bacitracin Oint 15 Gm Tube) 1 appln EXT QID PRN PRN Reason: skin infection Stop: 02/20/20 16:54 Bismuth Subsalicylate (Bismuth Subsalicylate Per Ml Omnicell Charge) 15 ml PO PRN PRN PRN Reason: Loose Stool Stop: 02/20/20 16:48 Clonazepam (Clonazepam 0.5 Mg Tab) 0.5 mg PO BID CALI Stop: 02/20/20 20:59 Last Admin: 01/24/20 09:05 Dose: 0.5 mg Documented by: Clozapine (Clozapine 100 Mg Tab) 300 mg PO HS CALI Stop: 02/20/20 20:59 Last Admin: 01/23/20 22:03 Dose: 300 mg Documented by: Divalproex Sodium (Divalproex Extended Release 500 Mg Tab) 1,500 mg PO HS CALI Stop: 02/20/20 20:59 Last Admin: 01/23/20 22:03 Dose: 1,500 mg Documented by: Docusate Sodium (Docusate Sodium 100 Mg Cap) 100 mg PO BID CALI Stop: 02/20/20 20:59 Last Admin: 01/24/20 09:05 Dose: 100 mg Documented by: Hydroxyzine HCl (Hydroxyzine Hcl 25 Mg Tab) 50 mg PO HSZ PRN PRN Reason: Insomnia Stop: 02/20/20 16:48 Hydroxyzine HCl (Hydroxyzine Hcl 25 Mg Tab) 25 mg PO Q4H PRN PRN Reason: Anxiety Stop: 02/20/20 16:48 Lisinopril (Lisinopril 5 Mg Tab) 5 mg PO DAILY CALI Stop: 02/21/20 08:59 Last Admin: 01/24/20 09:05 Dose: 5 mg Documented by: Magnesium Hydroxide (Magnesium Hydroxide Susp 30 Ml Udc) 30 ml PO DAILY PRN PRN Reason: Constipation Stop: 02/20/20 16:48 Last Admin: 01/21/20 22:02 Dose: 30 ml Documented by: Polyethylene Glycol (Polyethylene (Miralax) 17 Gm Pack) 17 gm PO DAILY PRN PRN Reason: Constipation Stop: 02/21/20 13:38 Last Admin: 01/22/20 14:28 Dose: 17 gm Documented by: Propranolol HCl (Propranolol Hcl 10 Mg Tab) 10 mg PO 1200 CALI Stop: 02/21/20 11:59 Last Admin: 01/23/20 12:38 Dose: 10 mg Documented by: Simvastatin (Simvastatin 20 Mg Tab) 20 mg PO HS CALI Stop: 02/20/20 20:59 Last Admin: 01/23/20 22:04 Dose: 20 mg Documented by: Sodium Chloride (Sodium Chloride 0.65% Na Soln 45 Ml ([place])) 1 - 2 sprays NA PRN PRN PRN Reason: Nasal Dryness/Congestion Stop: 02/20/20 16:48 Vitamin D (Cholecalciferol 1,000 Units 25 Mcg Tab) 1,000 units PO DAILY CALI Stop: 02/21/20 08:59 Last Admin: 01/24/20 09:05 Dose: 1,000 units Documented by: Mental Health & Subst Abuse Tx Psychiatrist Name of Psychiatrist: Sherly Lundberg Psychiatrist's Date of Appointment with Psychiatrist: 01/29/20 Time of Appointment with Psychiatrist: 10:30 a.m. Psychiatric Appointment Comment: [place] [facility] Therapist Name of Therapist: LeilaniXanderkacyVinay Rivero Therapist's Date of Therapist Appointment: 01/27/20 Time of Therapist Appointment: 2:00 Therapy Appointment Comment: [place] [facility] Enrollment Services Vice President Name of Enrollment Services Vice President: [employer] - Titi Castro Phone Number for Enrollment Services Vice President: [phone] Date of Appointment with Enrollment Services Vice President: 01/28/20 Time of Appointment with Enrollment Services Vice President: 1:00 p.m. Case Management Appointment Comment: Will meet with you at your apartment Post Discharge Appointments Primary Care Physician Name Of Family Doctor: Susie Liao Primary Care Date of Appointment with PCP: 07/19/20 Time of Appointment with PCP: 3:00 p.m. Provider Appointment Comment: [address] [place] [id number] Partial or Psych Rehab Name of Partial or Psych Rehab: [facility] Psych Rehab - [facility] Phone Number of Partial or Psych Rehab: [phone] Date of Appointment at Partial or Psych Rehab: 01/29/20 Time of Appointment at Partial or Psych Rehab: 1:00 p.m. Partial or Psych Rehab Appointment Comment: Will meet with you per routine schedule Specialist Name of Specialist: Orthopedic Surgeon - Dr. Harrison Phone Number for Specialist: [phone] Date of Appointment with Specialist: 02/02/20 Specialty Appointment Comment: Susie Enamorado - Orthopaedics and Sports Medicine Contact Information Discharge Discharge Address: [address] [place] [id number] (1) Schizoaffective disorder Schizoaffective disorder type: depressive Qualified Code(s): F25.1 - Schizoaffective disorder, depressive type
[2020-01-24] MEDS: PROPRANOLOL HCL 10 MG TAB PO SCH (12:36)
[2020-01-24] MEDS: cloZAPine 100 MG TAB PO SCH (21:52)
[2020-01-24] MEDS: SIMVASTATIN 20 MG TAB PO SCH (21:53)
[2020-01-24] MEDS: AMITRIPTYLINE HCL 100 MG TAB PO SCH (21:53)
[2020-01-24] MEDS: DIVALPROEX EXTENDED RELEASE 500 MG TAB PO SCH (21:53)
[2020-01-25] MEDS: clonazePAM 0.5 MG TAB PO SCH ×2 (09:03→22:03)
[2020-01-25] MEDS: DOCUSATE SODIUM 100 MG CAP PO SCH ×2 (09:03→22:02)
[2020-01-25] MEDS: lisinopriL 5 MG TAB PO SCH (09:03)
[2020-01-25] MEDS: CHOLECALCIFEROL 1,000 UNITS 25 MCG TAB PO SCH (09:03)
[2020-01-25] MEDS ORDERED: POLYETHYLENE (MIRALAX) 17 GM PACK PO PRN (09:17)
--- NOTE | 2020-01-25 09:26 | Psychiatric Progress Note ---
Date of Service January 25, 2020 Impression / Recommendations Impression Admission H&P Impression - schizoaffective d/o with recent suicide attempt leading to recent 3Sadmsision with discharge one week ago pt admitted now for inturssive thoughts about burniing down his apartment over being overhwelmed the disorganizaiton of it and anxiety worsened with klonopin lowered last appt to 0.5mg qday from 0.5mg BID (1) Schizoaffective disorder: 01/21 -longstanding diagnosis of schizoaffective disorder, bipolar type. Continue clozapine 300 mg at bedtime, amitriptyline 100 mg at bedtime, Depakote 1500 mg at bedtime, and clonazepam 0.5 mg twice daily that was recently lowered to 0.5mg qday. Raised Clonazepam back to 0.5mg bid -moved appt for psychiatric med management from tomorrow to next Sunday -Last fasting labs were done 01/14/2020 and were wnl given this is only a week ago no need to repeat these labs at this time -Get records from outpatient PA, Kendal Ye at [facility], and coordinate care. -Patient feels his medications are helpful and would like to start by working on coping skills and his daily structure. If symptoms are not improving, will consider medication adjustments. 01/22 and 01/23 - Continue current medication regimen, including clonazepam 0.5mg BID - Pt reports he has communicated with his orthopedic's office which has been his goal and has allowed for somewhat reduced anxiety levels - Due to recent and very impulsive suicide attempt and recent medication adjustments, it seems reasonable to offer continued structure and support of inpatient setting until patient is able to contract for safety and ready for discharge home anticipated for Sunday01/26/20 In that time he is attending groups and working coping skills to manage distress so that if he again feels distressed he is more prepared. 01/24 - continue plan as above, add miralax x1 today for slower bowels, continue bid colace (2) Hypertension: 01/21 - continue home doses of lisinopril and propranolol (3) Hyperlipidemia: 01/21 -continue home dose of simvastatin. LFT's WNL within past 2 weeks (4) Hematuria: 01/21 hematuria with last recent admission with plan to address further with PCP and this is same plan currently Protective Factors Assessment Employed: No Interval History Identifying Information MAX BRAYAN is a 44-year-old M who currently lives in [place] alone, has a history of schizoaffective disorder, and was admitted on a 201 voluntary commitment for intrusive disturbing thoughts of burning down his apartment on 01/21/20 at 16:52. Chief Complaint "I am feeling better than when I came". Review of Systems Sleep Information Total Hours of Sleep: 6.0 Sleep Comments: pt on q-15 minute checks Meal Information Percent Meal Consumed - Breakfast: 100 Percent Meal Consumed - Lunch: 100 Percent Meal Consumed - Dinner: 100 Subjective Subjective Patient was seen & assessed and interval progress reviewed with nursing and social work. Per social work staff he has nurse case management Titi Castro, and patient's after care for mental health, and pending surgery appt are in place. Per staff the patient reported his mood is 8/10 and feeling "calm", he slept 6+hours. Met wt patient, he states he feels improved over the time he has been in the hospital reporting stable mood, low anxiety, hopeful about the future, denying AH, denying paranoia. He is having some slower bowels last movement "day before yesterday" despite colace 100mg po bid. He requests miralax dose. He denies feeling constipated prior to hospital stay "I think I am eating differently here." He is motivated for discharge tomorrow. He denies other physical concerns, nor concerns about side effects from medications. Physical Exam Psychiatric Orientation: alert and oriented x 3 dressed in wrinkled t-shirt, hospital pants and tennis shoes without laces, hair appears clean but limited attention to style slightly tossled Eye Contact: good eye contact Motor Behavior: steady gait and station and + tremor (noted with holding his coffee cup both while still and moving to drink it) Speech: normal rate/rhythm/volume of speech affect is subdued, non-labile "okay" Thought Process: goal directed thought process and clear/coherent thought process future oriented toward discharge and f/u appointments Suicidal Thoughts: denies suicidal thoughts Hallucinations: no auditory hallucinations Cognition: recent memory grossly intact Estimated Intelligence: consistent with education level Insight: good insight Judgement: good judgement Vital Signs (Past 24 Hours) Last Vital Signs Temp 36.6 C 01/25/20 06:48 Pulse 99 H 01/25/20 09:09 Resp 18 01/25/20 06:48 BP 117/86 01/25/20 09:09 Pulse Ox 100 01/21/20 17:21 Reviewed physical exam from Dr. Alva in the ER of encounter tied to this admission and consider as sufficient and appropriate for this Results & Data ([facility]) Current Inpatient Medications Current Inpatient Medications: Current Inpatient Medications Acetaminophen (Acetaminophen 325 Mg Tab) 650 mg PO Q4H PRN PRN Reason: Headache or Minor Fever Stop: 02/20/20 16:48 Last Admin: 01/22/20 17:58 Dose: 650 mg Documented by: Al Hydrox/Mg Hydrox/Simethicone (Aluminum/Magnesium Susp 30 Ml Udc) 30 ml PO Q4H PRN PRN Reason: GI Upset Stop: 02/20/20 16:48 Amitriptyline HCl (Amitriptyline Hcl 100 Mg Tab) 100 mg PO HS CALI Stop: 02/20/20 20:59 Last Admin: 01/24/20 21:53 Dose: 100 mg Documented by: Bacitracin (Bacitracin Oint 15 Gm Tube) 1 appln EXT QID PRN PRN Reason: skin infection Stop: 02/20/20 16:54 Bismuth Subsalicylate (Bismuth Subsalicylate Per Ml Omnicell Charge) 15 ml PO PRN PRN PRN Reason: Loose Stool Stop: 02/20/20 16:48 Clonazepam (Clonazepam 0.5 Mg Tab) 0.5 mg PO BID CALI Stop: 02/20/20 20:59 Last Admin: 01/25/20 09:03 Dose: 0.5 mg Documented by: Clozapine (Clozapine 100 Mg Tab) 300 mg PO HS CALI Stop: 02/20/20 20:59 Last Admin: 01/24/20 21:52 Dose: 300 mg Documented by: Divalproex Sodium (Divalproex Extended Release 500 Mg Tab) 1,500 mg PO HS CALI Stop: 02/20/20 20:59 Last Admin: 01/24/20 21:53 Dose: 1,500 mg Documented by: Docusate Sodium (Docusate Sodium 100 Mg Cap) 100 mg PO BID CALI Stop: 02/20/20 20:59 Last Admin: 01/25/20 09:03 Dose: 100 mg Documented by: Hydroxyzine HCl (Hydroxyzine Hcl 25 Mg Tab) 50 mg PO HSZ PRN PRN Reason: Insomnia Stop: 02/20/20 16:48 Hydroxyzine HCl (Hydroxyzine Hcl 25 Mg Tab) 25 mg PO Q4H PRN PRN Reason: Anxiety Stop: 02/20/20 16:48 Lisinopril (Lisinopril 5 Mg Tab) 5 mg PO DAILY CALI Stop: 02/21/20 08:59 Last Admin: 01/25/20 09:03 Dose: 5 mg Documented by: Magnesium Hydroxide (Magnesium Hydroxide Susp 30 Ml Udc) 30 ml PO DAILY PRN PRN Reason: Constipation Stop: 02/20/20 16:48 Last Admin: 01/21/20 22:02 Dose: 30 ml Documented by: Polyethylene Glycol (Polyethylene (Miralax) 17 Gm Pack) 17 gm PO DAILY PRN PRN Reason: Constipation Stop: 02/21/20 13:38 Last Admin: 01/22/20 14:28 Dose: 17 gm Documented by: Polyethylene Glycol (Polyethylene (Miralax) 17 Gm Pack) 17 gm PO DAILY PRN PRN Reason: Constipation Stop: 02/24/20 09:16 Propranolol HCl (Propranolol Hcl 10 Mg Tab) 10 mg PO 1200 CALI Stop: 02/21/20 11:59 Last Admin: 01/24/20 12:36 Dose: 10 mg Documented by: Simvastatin (Simvastatin 20 Mg Tab) 20 mg PO HS CALI Stop: 02/20/20 20:59 Last Admin: 01/24/20 21:53 Dose: 20 mg Documented by: Sodium Chloride (Sodium Chloride 0.65% Na Soln 45 Ml ([place])) 1 - 2 sprays NA PRN PRN PRN Reason: Nasal Dryness/Congestion Stop: 02/20/20 16:48 Vitamin D (Cholecalciferol 1,000 Units 25 Mcg Tab) 1,000 units PO DAILY CALI Stop: 02/21/20 08:59 Last Admin: 01/25/20 09:03 Dose: 1,000 units Documented by: Mental Health & Subst Abuse Tx Psychiatrist Name of Psychiatrist: Sherly Lundberg Psychiatrist's Date of Appointment with Psychiatrist: 01/29/20 Time of Appointment with Psychiatrist: 10:30 a.m. Psychiatric Appointment Comment: [place] [facility] Therapist Name of Therapist: LeilaniNicole Rivero Therapist's Date of Therapist Appointment: 01/27/20 Time of Therapist Appointment: 2:00 Therapy Appointment Comment: [place] [facility] Sheet Rock Applicator Name of Sheet Rock Applicator: [employer] - Titi Castro Phone Number for Sheet Rock Applicator: [phone] Date of Appointment with Sheet Rock Applicator: 01/28/20 Time of Appointment with Sheet Rock Applicator: 1:00 p.m. Case Management Appointment Comment: Will meet with you at your apartment Post Discharge Appointments Primary Care Physician Name Of Family Doctor: Susie L[facility] Date of Appointment with PCP: 07/19/20 Time of Appointment with PCP: 3:00 p.m. Provider Appointment Comment: [address] [place] [id number] Partial or Psych Rehab Name of Partial or Psych Rehab: [facility] Phone Number of Partial or Psych Rehab: [phone] Date of Appointment at Partial or Psych Rehab: 01/29/20 Time of Appointment at Partial or Psych Rehab: 1:00 p.m. Partial or Psych Rehab Appointment Comment: Will meet with you per routine schedule Specialist Name of Specialist: Orthopedic Surgeon - Dr. Harrison Phone Number for Specialist: [phone] Date of Appointment with Specialist: 02/02/20 Specialty Appointment Comment: Susie Enamorado - Orthopaedics and Sports Medicine Contact Information Discharge Discharge Address: [address] [place] [address] (1) Schizoaffective disorder Schizoaffective disorder type: depressive Qualified Code(s): F25.1 - Schizoaffective disorder, depressive type
[2020-01-25] MEDS: PROPRANOLOL HCL 10 MG TAB PO SCH (12:36)
[2020-01-25] MEDS: cloZAPine 100 MG TAB PO SCH (22:03)
[2020-01-25] MEDS: DIVALPROEX EXTENDED RELEASE 500 MG TAB PO SCH (22:04)
[2020-01-25] MEDS: AMITRIPTYLINE HCL 100 MG TAB PO SCH (22:05)
[2020-01-25] MEDS: SIMVASTATIN 20 MG TAB PO SCH (22:05)
[2020-01-26] MEDS: DOCUSATE SODIUM 100 MG CAP PO SCH (09:05)
[2020-01-26] MEDS: CHOLECALCIFEROL 1,000 UNITS 25 MCG TAB PO SCH (09:05)
[2020-01-26] MEDS: clonazePAM 0.5 MG TAB PO SCH (09:05)
[2020-01-26] MEDS: lisinopriL 5 MG TAB PO SCH (09:05)
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
== END 2020-01-26 11:55 | disposition home or self-care (01) | DRG 885 ==
LOC: ED 11:58 → 3S 16:52

== ENCOUNTER 2020-02-11 14:01 | Inpatient (IN) ==
[2020-02-11] MEDS ORDERED: LORazepam 1 MG TAB PO STA (14:36)
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
[2020-02-11 15:16] LABS: Basophils # (auto) 0.01 K/uL (0-0.2); Basophils % (auto) 0.1 %; Hemoglobin 14.6 g/dL (14.0-18.0); Immature Granulocytes # (auto) 0.05 K/uL (0.00-0.02); Immature Granulocytes % (auto) 0.7 %; Lymphocytes # (auto) 2.08 K/uL (1.2-3.4); Lymphocytes % (auto) 27.8 %; Mean Corpuscular Hemoglobin 32.2 pg (25-34); Mean Corpuscular Hgb Conc 34.8 g/dL (32-36); Mean Corpuscular Volume 92.7 fL (80-100); Mean Platelet Volume 9.4 fL (7.4-10.4); Monocytes # (auto) 1.16 K/uL (0.11-0.59); Monocytes % (auto) 15.5 %; Neutrophils # (auto) 4.17 K/uL (1.4-6.5); Neutrophils % (auto) 55.9 %; Platelet Count 271 K/uL (130-400); RDW Coefficient of Variation 12.5 % (11.5-14.5); RDW Standard Deviation 42.4 fL (36.4-46.3); Red Blood Count 4.53 M/uL (4.7-6.1); White Blood Count 7.47 K/uL (4.8-10.8)
[2020-02-11 15:19] LABS: Appearance Urine Clear (Clear); Bacteria Urine Automated Negative (Negative); Bilirubin Urine Negative (Negative); Blood Urine 1+ (Negative); Cast Urine Automated 0 /lpf (0-5); Color Urine Yellow; Epithelial Cell Urine Auto 0-5 /lpf (0-5); Glucose Urine UA Negative (Negative); Ketones Urine Negative (Negative); Leukocyte Esterase Urine Negative (Negative); Nitrite Urine Negative (Negative); Protein Urine Negative (Negative); Specific Gravity Urine 1.012 (1.000-1.030); Urobilinogen Urine Negative (Negative); WBC Urine Automated 0 /hpf (0-5)
[2020-02-11 15:34] LABS: Albumin Level 3.9 gm/dl (3.4-5.0); BUN Creatinine Ratio 7.2 (10-20); Calcium 9.5 mg/dl (8.5-10.1); Creatinine Clr Calc Pharmacy 90.6 ml/min; Est GFR (African American) 88.9; Est GFR (Non-African American) 76.7; Potassium 4.2 mmol/L (3.5-5.1)
[2020-02-11 15:35] LABS: Amphetamines+Metham, Urine Neg (Neg); Barbiturates, Urine Neg (Neg); Benzodiazepine, Urine Neg (Neg); Cocaine, Urine Neg (Neg); MDMA (Ecstacy), Urine Neg (Neg); Methadone, Urine Neg (Neg); Opiate, Urine Neg (Neg); Phencyclidine, Urine Neg (Neg)
[2020-02-11 15:44] LABS: Bilirubin,Total 0.4 mg/dl (0.2-1); Thyroid Stimulating Hormone 1.46 uIu/ml (0.300-4.500); Total Protein 7.9 gm/dl (6.4-8.2)
[2020-02-11 15:49] LABS: Acetaminophen < 2 ug/ml (10-30); Salicylate < 1.7 mg/dl (2.8-20); Valproic Acid 83 mcg/ml (50-100)
[2020-02-11] MEDS ORDERED: SODIUM CHLORIDE 0.65% NA SOLN 45 ML (OCEAN) PRN (18:42)
[2020-02-11] MEDS ORDERED: ALUMINUM/MAGNESIUM SUSP 30 ML UDC PO PRN (18:42)
[2020-02-11] MEDS ORDERED: BISMUTH SUBSALICYLATE LIQD 236 ML PO PRN (18:42)
[2020-02-11] MEDS ORDERED: hydrOXYzine HCl 25 MG TAB PO PRN ×2 (18:42)
[2020-02-11] MEDS: clonazePAM 0.5 MG TAB PO SCH (21:17)
[2020-02-11] MEDS: cloZAPine 25 MG TAB PO SCH (21:18)
[2020-02-11] MEDS: DIVALPROEX EXTENDED RELEASE 250 MG TABCR PO SCH (21:21)
[2020-02-11] MEDS: SIMVASTATIN 20 MG TAB PO SCH (21:22)
[2020-02-11] MEDS: AMITRIPTYLINE HCL 100 MG TAB PO SCH (21:22)
[2020-02-11] MEDS: DOCUSATE SODIUM 100 MG CAP PO SCH (21:23)
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
[2020-02-12] MEDS: CHOLECALCIFEROL 1,000 UNITS 25 MCG TAB PO SCH (09:00)
[2020-02-12] MEDS: clonazePAM 0.5 MG TAB PO SCH (09:00)
[2020-02-12] MEDS: DOCUSATE SODIUM 100 MG CAP PO SCH ×2 (09:00→21:36)
[2020-02-12] MEDS: lisinopriL 5 MG TAB PO SCH (09:01)
[2020-02-12] MEDS: PROPRANOLOL HCL 10 MG TAB PO SCH (12:05)
[2020-02-12] MEDS: cloZAPine 25 MG TAB PO SCH (21:37)
[2020-02-12] MEDS: AMITRIPTYLINE HCL 100 MG TAB PO SCH (21:39)
[2020-02-12] MEDS: DIVALPROEX EXTENDED RELEASE 250 MG TABCR PO SCH (21:39)
[2020-02-12] MEDS: SIMVASTATIN 20 MG TAB PO SCH (21:40)
[2020-02-12] MEDS: clonazePAM 0.5 MG TAB PO PRN (21:56)
[2020-02-13] MEDS: CHOLECALCIFEROL 1,000 UNITS 25 MCG TAB PO SCH (09:08)
[2020-02-13] MEDS: DOCUSATE SODIUM 100 MG CAP PO SCH ×2 (09:08→22:03)
[2020-02-13] MEDS: lisinopriL 5 MG TAB PO SCH (09:12)
[2020-02-13] MEDS: clonazePAM 0.5 MG TAB PO PRN ×2 (09:14→22:10)
--- NOTE | 2020-02-13 09:51 | Psychiatric Progress Note ---
Date of Service February 13, 2020 Impression / Recommendations Impression 44-year-old single male with a history of schizoaffective disorder bipolar type and multiple recent hospitalizations who presents with worsening mood, paranoia, and intrusive thoughts to harm his pillowcase sewer in the context of social isolation related to the pandemic. He has done well with clozapine and amitriptyline, and requested 1 additional dose of clonazepam as needed daily to target anxiety. We will need to coordinate with his PCM regarding ways to increase his supports and socialization outside of the hospital, as well as his PA at [facility]. Pt agreed to CRR referrals, as he is able to identify that living independently may not be helping to improve his mental health stability. Inpatient treatment is medically necessary due to the severity of symptoms and risk for harm of discharge. (1) Homicidal ideation: 02/11 -patient reports intrusive thoughts to harm his pillowcase sewer which started yesterday, are ego dystonic, denies intent to act on them, but felt very disturbed by them. He does not have a history of violence, and feels safe here in the hospital. Continue to process and monitor. 02/12 - Pt denying intrusive, ego dystonic thoughts to harm others (pillowcase sewer specifically mentioned on admission) (2) Schizoaffective disorder: 02/11 -continue home doses of clozapine and amitriptyline -Consider titration of clozapine, which patient declined today. -Fasting labs from 01/14/2020 reviewed: FLP normal, glucose 98. -Meeting with hospital social media project manager and BCM tomorrow. Patient states that he and his pillowcase sewer discussed "new housing," which he describes as the [facility] hospital; he may benefit from return to CRR/supported group living. 02/12 - Pt now agreeable with titration of clozapine - will add 50mg morning dose, and keep 300mg dose at HS. Advised patient of possible morning sedation and encouraged him to follow-up with clinicians should this become a concern. - Pt expressed desire for referral to a CRR - pillowcase sewer working on referrals (3) Anxiety: 02/11 -encourage group attendance, work on healthy coping skills and safety plan. Increase clonazepam to 0.5 mg 3 times daily as needed anxiety. 02/12 - Continue as above (4) Hypertension: 02/11 - Continue home dose of lisinopril. (5) Hyperlipidemia: 02/11 - Continue home dose simvastatin. Risk Factors Assessment Male: Yes : Yes Do You Have Access To A Gun?: No Health Problems: Yes Mental Health Diagnoses: Yes Substance Use Disorders: No Previous Attempt: Yes Previous Psychiatric Hospitalization: Yes Hopelessness: Yes Protective Factors Assessment : No Responsible for Young Children: No Employed: No Stable Relationships: Yes Supportive Family: Yes Good Rapport with Provider: Yes Interval History Identifying Information ROGER SCHMIDT is a 44-year-old M who currently lives in [place] alone, has a history of schizoaffective disorder bipolar type, and was admitted on 02/11/20 18:39 on a 201 voluntary commitment for intrusive thoughts to harm his pillowcase sewer. Chief Complaint "I'm alright." Review of Systems Notes Constitutional: denied Cardiovascular: denied Respiratory: denied Gastrointestinal: denied Neurological: denied Psychiatric: denies symptoms other than stated above Total of at least 10 systems reviewed, pertinent positives as above and in HPI. Sleep Information Total Hours of Sleep: 6.5 Meal Information Percent Meal Consumed - Breakfast: 95 Percent Meal Consumed - Lunch: 90 Percent Meal Consumed - Dinner: 100 Subjective Subjective Patient was seen & assessed and interval progress reviewed with treatment team. Staff report the patient has been participating in group programming. He does well on the unit, but is clearly unable to function living independently outside of the hospital setting. Pt had a meeting with his outpatient pillowcase sewer today, and patient requested referral to a CRR. Pt was seen today after that meeting to discuss progress since admission. Pt states "I'm alright." He shares that his pillowcase sewer is looking into CRR options as "right now I live alone, and I don't think that's good for me." Pt admits that he feels isolated and believes he would benefit from the community living setting. Pt denies SI/HI and intrusive thoughts to harm self or others since his was admitted. He does admit to being uncertain of what he would do if they returned and he were not in the hospital setting. We reviewed changes made to clonazepam yesterday, and patient was asked to consider if titration of clozapine may also be beneficial. Pt ultimately admits that he thinks it would help with his "paranoia" and agreed to titration of the medication. Pt denies any physical concerns today. He denied any additional needs at this time. Physical Exam Psychiatric Orientation: alert, oriented x 3 and cooperative Apperance: appropriately dressed, appropriately groomed and appeared stated age Eye Contact: good eye contact Motor Behavior: steady gait and station and no abnormal motor movements Speech: normal rate/rhythm/volume of speech Affect: + constricted affect (appearing bright and smiling, but has an oddly timid presentation) Mood: no depressed mood ("I'm alright") and no anxious mood Thought Process: goal directed thought process and clear/coherent thought process Thought Content: reality based without delusions; not paranoid (but states prior intrusive thoughts caused him to feel paranoid), no hopelessness and no worthlessness Suicidal Thoughts: denies suicidal thoughts Homicidal Thoughts: denies homicidal thoughts Hallucinations: no auditory hallucinations and no visual hallucinations Cognition: recent memory grossly intact, attention grossly intact and language grossly intact Insight: + impaired insight (though able to appropriate process barriers to mental health stability ) Judgement: + impaired judgement Vital Signs (Past 24 Hours) Last Vital Signs Temp 36.4 C L 02/13/20 06:37 Pulse 85 02/13/20 06:38 Resp 16 02/13/20 06:37 BP 97/65 L 02/13/20 06:38 Pulse Ox 99 02/11/20 17:22 Results & Data ([facility]) Current Inpatient Medications Current Inpatient Medications: Current Inpatient Medications Acetaminophen (Acetaminophen 325 Mg Tab) 650 mg PO Q4H PRN PRN Reason: Headache or Minor Fever Stop: 03/12/20 18:41 Al Hydrox/Mg Hydrox/Simethicone (Aluminum/Magnesium Susp 30 Ml Udc) 30 ml PO Q4H PRN PRN Reason: GI Upset Stop: 03/12/20 18:41 Amitriptyline HCl (Amitriptyline Hcl 100 Mg Tab) 100 mg PO HS CALI Stop: 03/12/20 20:59 Last Admin: 02/12/20 21:39 Dose: 100 mg Documented by: Bismuth Subsalicylate (Bismuth Subsalicylate Liqd 236 Ml) 15 ml PO PRN PRN PRN Reason: Loose Stool Stop: 03/12/20 18:41 Clonazepam (Clonazepam 0.5 Mg Tab) 0.5 mg PO TID PRN PRN Reason: Anxiety Stop: 03/13/20 13:59 Last Admin: 02/13/20 09:14 Dose: 0.5 mg Documented by: Clozapine (Clozapine 25 Mg Tab) 300 mg PO HS CALI Stop: 03/12/20 20:59 Last Admin: 02/12/20 21:37 Dose: 300 mg Documented by: Divalproex Sodium (Divalproex Extended Release 250 Mg Tabcr) 1,500 mg PO HS CALI Stop: 03/12/20 20:59 Last Admin: 02/12/20 21:39 Dose: 1,500 mg Documented by: Docusate Sodium (Docusate Sodium 100 Mg Cap) 100 mg PO BID CALI Stop: 03/12/20 20:59 Last Admin: 02/13/20 09:08 Dose: 100 mg Documented by: Hydroxyzine HCl (Hydroxyzine Hcl 25 Mg Tab) 50 mg PO HSZ PRN PRN Reason: Insomnia Stop: 03/12/20 18:41 Hydroxyzine HCl (Hydroxyzine Hcl 25 Mg Tab) 25 mg PO Q4H PRN PRN Reason: Anxiety Stop: 03/12/20 18:41 Lisinopril (Lisinopril 5 Mg Tab) 5 mg PO QAM [facility] Stop: 03/13/20 08:59 Last Admin: 02/13/20 09:12 Dose: 5 mg Documented by: Magnesium Hydroxide (Magnesium Hydroxide Susp 30 Ml Udc) 30 ml PO DAILY PRN PRN Reason: Constipation Stop: 03/12/20 18:41 Propranolol HCl (Propranolol Hcl 10 Mg Tab) 10 mg PO 1200 CALI Stop: 03/13/20 11:59 Last Admin: 02/12/20 12:05 Dose: 10 mg Documented by: Simvastatin (Simvastatin 20 Mg Tab) 20 mg PO HS [facility] Stop: 03/12/20 20:59 Last Admin: 02/12/20 21:40 Dose: 20 mg Documented by: Sodium Chloride (Sodium Chloride 0.65% Na Soln 45 Ml ([place])) 1 - 2 sprays NA PRN PRN PRN Reason: Nasal Dryness/Congestion Stop: 03/12/20 18:41 Vitamin D (Cholecalciferol 1,000 Units 25 Mcg Tab) 1,000 units PO QAM [facility] Stop: 03/13/20 08:59 Last Admin: 02/13/20 09:08 Dose: 1,000 units Documented by: Mental Health & Subst Abuse Tx Psychiatrist Name of Psychiatrist: Sherly Lundberg Psychiatrist's Psychiatric Appointment Comment: [place] [facility] Therapist Name of Therapist: Sherly Rivero Therapist's Therapy Appointment Comment: [place] [facility] Sprayer Machine Name of Sprayer Machine: CHAPITO Mclean Titi Castro Phone Number for Sprayer Machine: [phone] Case Management Appointment Comment: Wed at 1 Post Discharge Appointments Primary Care Physician Name Of Family Doctor: Susie Liao Primary Care Provider Appointment Comment: [address] [place] [address] [place] [address] Partial or Psych Rehab Name of Partial or Psych Rehab: [facility] [place] [facility] - [facility] Phone Number of Partial or Psych Rehab: [phone] Partial or Psych Rehab Appointment Comment: Thurs at 1 Contact Information Discharge Discharge [address]: [address] [place] [address], [address] [place] [address] (1) Schizoaffective disorder Schizoaffective disorder type: unspecified Qualified Code(s): F25.9 - Schizoaffective disorder, unspecified
[2020-02-13] MEDS: PROPRANOLOL HCL 10 MG TAB PO SCH (12:47)
[2020-02-13] MEDS: cloZAPine 25 MG TAB PO SCH (22:04)
[2020-02-13] MEDS: DIVALPROEX EXTENDED RELEASE 250 MG TABCR PO SCH (22:05)
[2020-02-13] MEDS: AMITRIPTYLINE HCL 100 MG TAB PO SCH (22:05)
[2020-02-13] MEDS: SIMVASTATIN 20 MG TAB PO SCH (22:06)
[2020-02-14] MEDS: cloZAPine 25 MG TAB PO SCH ×2 (08:54→22:08)
[2020-02-14] MEDS: DOCUSATE SODIUM 100 MG CAP PO SCH ×2 (08:55→22:08)
[2020-02-14] MEDS: CHOLECALCIFEROL 1,000 UNITS 25 MCG TAB PO SCH (08:55)
[2020-02-14] MEDS: lisinopriL 5 MG TAB PO SCH (08:55)
--- NOTE | 2020-02-14 11:35 | Psychiatric Progress Note ---
Date of Service February 14, 2020 Impression / Recommendations Impression 44-year-old single male with a history of schizoaffective disorder bipolar type and multiple recent hospitalizations who presents with worsening mood, paranoia, and intrusive thoughts to harm his case worker in the context of social isolation related to the pandemic. He has done well with clozapine and amitriptyline, and requested 1 additional dose of clonazepam as needed daily to target anxiety. We will need to coordinate with his PCM regarding ways to increase his supports and socialization outside of the hospital, as well as his PA at [facility]. Pt agreed to CRR referrals, as he is able to identify that living independently may not be helping to improve his mental health stability. Inpatient treatment is medically necessary due to the severity of symptoms and risk for harm of discharge. Reviewed 02/14/2020. Imp: improving Plan: continue current meds and tx plan. Risk Factors Assessment Male: Yes : Yes Do You Have Access To A Gun?: No Health Problems: Yes Mental Health Diagnoses: Yes Substance Use Disorders: No Previous Attempt: Yes Previous Psychiatric Hospitalization: Yes Hopelessness: Yes Protective Factors Assessment : No Responsible for Young Children: No Employed: No Stable Relationships: Yes Supportive Family: Yes Good Rapport with Provider: Yes Interval History Identifying Information ROGER SCHMIDT is a 44-year-old M who currently lives in [place] alone, has a history of schizoaffective disorder bipolar type, and was admitted on 02/11/20 18:39 on a 201 voluntary commitment for intrusive thoughts to harm his case worker. Reviewed 02/14/2020. Chief Complaint "I met with Bill and it was fine, my meds are fine, I don't have those thoughts anymore". Review of Systems Sleep Information Total Hours of Sleep: 6.75 Meal Information Percent Meal Consumed - Breakfast: 100 Percent Meal Consumed - Lunch: 100 Percent Meal Consumed - Dinner: 100 Subjective Subjective Patient was seen & assessed and interval progress reviewed with nursing and social work. Frequent hospitalizations, met with CM yesterday to complete CRR application will be a few days for an update on bed date status. Tolerating increase in Clozaril, in bed resting during interview but was in milieu for group and meals. Physical Exam Psychiatric Orientation: alert, oriented x 3 and cooperative Apperance: appropriately dressed, appropriately groomed and appeared stated age Eye Contact: good eye contact Motor Behavior: steady gait and station and no abnormal motor movements Speech: normal rate/rhythm/volume of speech Mood: + anxious mood (superficially) Thought Process: + concrete thought process Thought Content: reality based without delusions Suicidal Thoughts: denies suicidal thoughts Homicidal Thoughts: denies homicidal thoughts Hallucinations: no auditory hallucinations and no visual hallucinations Cognition: recent memory grossly intact, attention grossly intact and language grossly intact Insight: + limited insight Judgement: + impaired judgement Vital Signs (Past 24 Hours) Last Vital Signs Temp 36.7 C 02/14/20 06:32 Pulse 83 02/14/20 06:32 Resp 18 02/14/20 06:32 BP 108/74 02/14/20 06:32 Pulse Ox 99 02/11/20 17:22 Results & Data ([facility]) Current Inpatient Medications Current Inpatient Medications: Current Inpatient Medications Acetaminophen (Acetaminophen 325 Mg Tab) 650 mg PO Q4H PRN PRN Reason: Headache or Minor Fever Stop: 03/12/20 18:41 Al Hydrox/Mg Hydrox/Simethicone (Aluminum/Magnesium Susp 30 Ml Udc) 30 ml PO Q4H PRN PRN Reason: GI Upset Stop: 03/12/20 18:41 Amitriptyline HCl (Amitriptyline Hcl 100 Mg Tab) 100 mg PO HS [facility] Stop: 03/12/20 20:59 Last Admin: 02/13/20 22:05 Dose: 100 mg Documented by: Bismuth Subsalicylate (Bismuth Subsalicylate Liqd 236 Ml) 15 ml PO PRN PRN PRN Reason: Loose Stool Stop: 03/12/20 18:41 Clonazepam (Clonazepam 0.5 Mg Tab) 0.5 mg PO TID PRN PRN Reason: Anxiety Stop: 03/13/20 13:59 Last Admin: 02/13/20 22:10 Dose: 0.5 mg Documented by: Clozapine (Clozapine 25 Mg Tab) 300 mg PO HS [facility] Stop: 03/12/20 20:59 Last Admin: 02/13/20 22:04 Dose: 300 mg Documented by: Clozapine (Clozapine 25 Mg Tab) 50 mg PO QAM [facility] Stop: 03/15/20 08:59 Last Admin: 02/14/20 08:54 Dose: 50 mg Documented by: Divalproex Sodium (Divalproex Extended Release 250 Mg Tabcr) 1,500 mg PO HS [facility] Stop: 03/12/20 20:59 Last Admin: 02/13/20 22:05 Dose: 1,500 mg Documented by: Docusate Sodium (Docusate Sodium 100 Mg Cap) 100 mg PO BID [facility] Stop: 03/12/20 20:59 Last Admin: 02/14/20 08:55 Dose: 100 mg Documented by: Hydroxyzine HCl (Hydroxyzine Hcl 25 Mg Tab) 50 mg PO HSZ PRN PRN Reason: Insomnia Stop: 03/12/20 18:41 Hydroxyzine HCl (Hydroxyzine Hcl 25 Mg Tab) 25 mg PO Q4H PRN PRN Reason: Anxiety Stop: 03/12/20 18:41 Lisinopril (Lisinopril 5 Mg Tab) 5 mg PO QAM [facility] Stop: 03/13/20 08:59 Last Admin: 02/14/20 08:55 Dose: 5 mg Documented by: Magnesium Hydroxide (Magnesium Hydroxide Susp 30 Ml Udc) 30 ml PO DAILY PRN PRN Reason: Constipation Stop: 03/12/20 18:41 Propranolol HCl (Propranolol Hcl 10 Mg Tab) 10 mg PO 1200 [facility]I Stop: 03/13/20 11:59 Last Admin: 02/13/20 12:47 Dose: 10 mg Documented by: Simvastatin (Simvastatin 20 Mg Tab) 20 mg PO HS [facility] Stop: 03/12/20 20:59 Last Admin: 02/13/20 22:06 Dose: 20 mg Documented by: Sodium Chloride (Sodium Chloride 0.65% Na Soln 45 Ml ([place])) 1 - 2 sprays NA PRN PRN PRN Reason: Nasal Dryness/Congestion Stop: 03/12/20 18:41 Vitamin D (Cholecalciferol 1,000 Units 25 Mcg Tab) 1,000 units PO QAM [facility] Stop: 03/13/20 08:59 Last Admin: 02/14/20 08:55 Dose: 1,000 units Documented by: Mental Health & Subst Abuse Tx Psychiatrist Name of Psychiatrist: Sherly Lundberg Psychiatrist's Psychiatric Appointment Comment: [place] [facility] Therapist Name of Therapist: Sherly Rivero Therapist's Therapy Appointment Comment: [place] [facility] Area Representative Name of Area Representative: CHAPITO Castro Phone Number for Area Representative: [phone] Case Management Appointment Comment: Wed at 1 Post Discharge Appointments Primary Care Physician Name Of Family Doctor: Susie Liao Primary Care Provider Appointment Comment: [address] [facility] [place] [address] Partial or Psych Rehab Name of Partial or Psych Rehab: [facility] [place] [facility] - [facility] Phone Number of Partial or Psych Rehab: [phone] Partial or Psych Rehab Appointment Comment: Thurs at 1 Contact Information Discharge Discharge Address: [address] [facility], [address] [place] [address]
[2020-02-14] MEDS: PROPRANOLOL HCL 10 MG TAB PO SCH (12:30)
[2020-02-14] MEDS: clonazePAM 0.5 MG TAB PO PRN ×3 (13:01→22:49)
[2020-02-14] MEDS: DIVALPROEX EXTENDED RELEASE 250 MG TABCR PO SCH (22:09)
[2020-02-14] MEDS: SIMVASTATIN 20 MG TAB PO SCH (22:10)
[2020-02-14] MEDS: AMITRIPTYLINE HCL 100 MG TAB PO SCH (22:10)
[2020-02-15] MEDS: cloZAPine 25 MG TAB PO SCH ×2 (08:36→22:13)
[2020-02-15] MEDS: CHOLECALCIFEROL 1,000 UNITS 25 MCG TAB PO SCH (08:36)
[2020-02-15] MEDS: DOCUSATE SODIUM 100 MG CAP PO SCH ×2 (08:36→22:13)
[2020-02-15] MEDS: lisinopriL 5 MG TAB PO SCH (08:37)
[2020-02-15] MEDS: ACETAMINOPHEN 325 MG TAB PO PRN (09:14)
--- NOTE | 2020-02-15 09:52 | Psychiatric Progress Note ---
Date of Service February 15, 2020 Impression / Recommendations Impression 44-year-old single male with a history of schizoaffective disorder bipolar type and multiple recent hospitalizations who presents with worsening mood, paranoia, and intrusive thoughts to harm his case management social worker in the context of social isolation related to the pandemic. He has done well with clozapine and amitriptyline, and requested 1 additional dose of clonazepam as needed daily to target anxiety. We will need to coordinate with his PCM regarding ways to increase his supports and socialization outside of the hospital, as well as his PA at [facility]. Pt agreed to [facility] referrals, as he is able to identify that living independently may not be helping to improve his mental health stability. Inpatient treatment is medically necessary due to the severity of symptoms and risk for harm of discharge. Reviewed 02/14/2020. 02/14--worsening mood due to intrussive thoughts. (1) Homicidal ideation: 02/11 -patient reports intrusive thoughts to harm his case management social worker which started yesterday, are ego dystonic, denies intent to act on them, but felt very disturbed by them. He does not have a history of violence, and feels safe here in the hospital. Continue to process and monitor. 02/12 - Pt denying intrusive, ego dystonic thoughts to harm others (case management social worker specifically mentioned on admission) 02/14--recurred last pm, MNPR (2) Schizoaffective disorder: 02/11 -continue home doses of clozapine and amitriptyline -Consider titration of clozapine, which patient declined today. -Fasting labs from 01/14/2020 reviewed: FLP normal, glucose 98. -Meeting with hospital delinquency prevention social worker and BCM tomorrow. Patient states that he and his case management social worker discussed "new housing," which he describes as the [facility]; he may benefit from return to [facility]/supported group living. 02/12 - Pt now agreeable with titration of clozapine - will add 50mg morning dose, and keep 300mg dose at HS. Advised patient of possible morning sedation and encouraged him to follow-up with clinicians should this become a concern. - Pt expressed desire for referral to a [facility] - case management social worker working on referrals 02/14 declines increase in clozaril stating it's activating for him. (3) Anxiety: 02/11 -encourage group attendance, work on healthy coping skills and safety plan. Increase clonazepam to 0.5 mg 3 times daily as needed anxiety. 02/12 - Continue as above 02/14--reviewed (4) Hypertension: 02/11 - Continue home dose of lisinopril. 02/14 reviewed (5) Hyperlipidemia: 02/11 - Continue home dose simvastatin. 02/14--reviewed Risk Factors Assessment Male: Yes : Yes Do You Have Access To A Gun?: No Health Problems: Yes Mental Health Diagnoses: Yes Substance Use Disorders: No Previous Attempt: Yes Previous Psychiatric Hospitalization: Yes Hopelessness: Yes Protective Factors Assessment : No Responsible for Young Children: No Employed: No Stable Relationships: Yes Supportive Family: Yes Good Rapport with Provider: Yes Interval History Identifying Information ROGER SCHMIDT is a 44-year-old M who currently lives in [place] alone, has a history of schizoaffective disorder bipolar type, and was admitted on 02/11/20 18:39 on a 201 voluntary commitment for intrusive thoughts to harm his case management social worker. Reviewed 02/14/2020. Chief Complaint "I had a rough day yesterday". Review of Systems Sleep Information Total Hours of Sleep: 6 Meal Information Percent Meal Consumed - Breakfast: 100 Percent Meal Consumed - Lunch: 100 Percent Meal Consumed - Dinner: 100 Subjective Subjective Patient was seen & assessed and interval progress reviewed with nursing and social work. Told staff last night that was having thoughts to smother his roommate with a pillow and roommate was moved. He denies intent or plan and the intrussive thoughts are distressing for him, thoughts went away and was able to sleep but rates mood as 0-4 today. Appears more tremulous this am. He also told staff in afternoon that was having thoughts about hurting a non-specific baby. He denies triggering event. He had processed this with a male staff and shared with me today that he had a thought to push that staff. Physical Exam Psychiatric Orientation: alert, oriented x 3 and cooperative Apperance: appropriately dressed, appropriately groomed and appeared stated age Eye Contact: good eye contact Motor Behavior: steady gait and station and no abnormal motor movements Speech: normal rate/rhythm/volume of speech Mood: + depressed mood and + anxious mood (superficially) Thought Process: + concrete thought process Thought Content: reality based without delusions; not paranoid (but states prior intrusive thoughts caused him to feel paranoid) Suicidal Thoughts: denies suicidal thoughts Homicidal Thoughts: denies homicidal thoughts Hallucinations: no auditory hallucinations and no visual hallucinations Cognition: recent memory grossly intact, attention grossly intact and language grossly intact Insight: + limited insight Judgement: + impaired judgement Vital Signs (Past 24 Hours) Last Vital Signs Temp 36.5 C 02/15/20 06:37 Pulse 87 02/15/20 06:37 Resp 18 02/15/20 06:37 BP 115/80 02/15/20 06:37 Pulse Ox 99 02/11/20 17:22 Results & Data ([facility]) Current Inpatient Medications Current Inpatient Medications: Current Inpatient Medications Acetaminophen (Acetaminophen 325 Mg Tab) 650 mg PO Q4H PRN PRN Reason: Headache or Minor Fever Stop: 03/12/20 18:41 Last Admin: 02/15/20 09:14 Dose: 650 mg Documented by: Al Hydrox/Mg Hydrox/Simethicone (Aluminum/Magnesium Susp 30 Ml Udc) 30 ml PO Q4H PRN PRN Reason: GI Upset Stop: 03/12/20 18:41 Amitriptyline HCl (Amitriptyline Hcl 100 Mg Tab) 100 mg PO HS CALI Stop: 03/12/20 20:59 Last Admin: 02/14/20 22:10 Dose: 100 mg Documented by: Bismuth Subsalicylate (Bismuth Subsalicylate Liqd 236 Ml) 15 ml PO PRN PRN PRN Reason: Loose Stool Stop: 03/12/20 18:41 Clonazepam (Clonazepam 0.5 Mg Tab) 0.5 mg PO TID PRN PRN Reason: Anxiety Stop: 03/13/20 13:59 Last Admin: 02/14/20 22:49 Dose: 0.5 mg Documented by: Clozapine (Clozapine 25 Mg Tab) 300 mg PO HS CALI Stop: 03/12/20 20:59 Last Admin: 02/14/20 22:08 Dose: 300 mg Documented by: Clozapine (Clozapine 25 Mg Tab) 50 mg PO QAM CALI Stop: 03/15/20 08:59 Last Admin: 02/15/20 08:36 Dose: 50 mg Documented by: Divalproex Sodium (Divalproex Extended Release 250 Mg Tabcr) 1,500 mg PO HS CALI Stop: 03/12/20 20:59 Last Admin: 02/14/20 22:09 Dose: 1,500 mg Documented by: Docusate Sodium (Docusate Sodium 100 Mg Cap) 100 mg PO BID CALI Stop: 03/12/20 20:59 Last Admin: 02/15/20 08:36 Dose: 100 mg Documented by: Hydroxyzine HCl (Hydroxyzine Hcl 25 Mg Tab) 50 mg PO HSZ PRN PRN Reason: Insomnia Stop: 03/12/20 18:41 Hydroxyzine HCl (Hydroxyzine Hcl 25 Mg Tab) 25 mg PO Q4H PRN PRN Reason: Anxiety Stop: 03/12/20 18:41 Lisinopril (Lisinopril 5 Mg Tab) 5 mg PO QAM CALI Stop: 03/13/20 08:59 Last Admin: 02/15/20 08:37 Dose: 5 mg Documented by: Magnesium Hydroxide (Magnesium Hydroxide Susp 30 Ml Udc) 30 ml PO DAILY PRN PRN Reason: Constipation Stop: 03/12/20 18:41 Propranolol HCl (Propranolol Hcl 10 Mg Tab) 10 mg PO 1200 CALI Stop: 03/13/20 11:59 Last Admin: 02/14/20 12:30 Dose: 10 mg Documented by: Simvastatin (Simvastatin 20 Mg Tab) 20 mg PO HS CALI Stop: 03/12/20 20:59 Last Admin: 02/14/20 22:10 Dose: 20 mg Documented by: Sodium Chloride (Sodium Chloride 0.65% Na Soln 45 Ml ([place])) 1 - 2 sprays NA PRN PRN PRN Reason: Nasal Dryness/Congestion Stop: 03/12/20 18:41 Vitamin D (Cholecalciferol 1,000 Units 25 Mcg Tab) 1,000 units PO QAM CALI Stop: 03/13/20 08:59 Last Admin: 02/15/20 08:36 Dose: 1,000 units Documented by: Mental Health & Subst Abuse Tx Psychiatrist Name of Psychiatrist: Sherly Lundberg Psychiatrist's Psychiatric Appointment Comment: [place] [facility] Therapist Name of Therapist: Sherly Rivero Therapist's Therapy Appointment Comment: [place] [facility] Electrical Appliance Preparer Name of Electrical Appliance Preparer: CHAPITO Castro Phone Number for Electrical Appliance Preparer: [phone] Case Management Appointment Comment: Wed at 1 Post Discharge Appointments Primary Care Physician Name Of Family Doctor: Susie Liao Primary Care Provider Appointment Comment: [address] [place] [address] Partial or Psych Rehab Name of Partial or Psych Rehab: [facility] [place] [facility] - [facility] Phone Number of Partial or Psych Rehab: [phone] Partial or Psych Rehab Appointment Comment: Thurs at 1 Contact Information Discharge Discharge [address]: [address] [place] [id number] (1) Schizoaffective disorder Schizoaffective disorder type: unspecified Qualified Code(s): F25.9 - Schizoaffective disorder, unspecified
[2020-02-15] MEDS: PROPRANOLOL HCL 10 MG TAB PO SCH (12:44)
[2020-02-15] MEDS: clonazePAM 0.5 MG TAB PO PRN ×2 (12:44→22:21)
[2020-02-15] MEDS: MAGNESIUM HYDROXIDE SUSP 30 ML UDC PO PRN (17:53)
[2020-02-15] MEDS: SIMVASTATIN 20 MG TAB PO SCH (22:13)
[2020-02-15] MEDS: DIVALPROEX EXTENDED RELEASE 250 MG TABCR PO SCH (22:16)
[2020-02-15] MEDS: AMITRIPTYLINE HCL 100 MG TAB PO SCH (22:18)
[2020-02-16] MEDS: cloZAPine 25 MG TAB PO SCH ×2 (08:48→21:59)
[2020-02-16] MEDS: lisinopriL 5 MG TAB PO SCH (08:49)
[2020-02-16] MEDS: CHOLECALCIFEROL 1,000 UNITS 25 MCG TAB PO SCH (08:49)
[2020-02-16] MEDS: DOCUSATE SODIUM 100 MG CAP PO SCH ×2 (08:49→21:59)
[2020-02-16] MEDS: clonazePAM 0.5 MG TAB PO PRN ×2 (08:49→22:01)
[2020-02-16] MEDS: ACETAMINOPHEN 325 MG TAB PO PRN ×2 (09:06→22:45)
[2020-02-16] MEDS: PROPRANOLOL HCL 10 MG TAB PO SCH (12:34)
--- NOTE | 2020-02-16 13:21 | Psychiatric Progress Note ---
Date of Service February 16, 2020 Impression / Recommendations Impression 44-year-old single male with a history of schizoaffective disorder bipolar type and multiple recent hospitalizations who presents with worsening mood, paranoia, and intrusive thoughts to harm his special education case manager in the context of social isolation related to the pandemic. He has done well with clozapine and amitriptyline, and requested 1 additional dose of clonazepam as needed daily to target anxiety. We will need to coordinate with his PCM regarding ways to increase his supports and socialization outside of the hospital, as well as his PA at [facility]. Pt agreed to [facility] referrals, as he is able to identify that living independently may not be helping to improve his mental health stability. Inpatient treatment is medically necessary due to the severity of symptoms and risk for harm of discharge. 02/16/20--Impression: improved in that less anxious than yesterday Plan: continue MNPR today, reviewed that will need to tolerate a roommate at [facility] and are awaiting bed status to determine best transition plan. Risk Factors Assessment Male: Yes : Yes Do You Have Access To A Gun?: No Health Problems: Yes Mental Health Diagnoses: Yes Substance Use Disorders: No Previous Attempt: Yes Previous Psychiatric Hospitalization: Yes Hopelessness: Yes Protective Factors Assessment : No Responsible for Young Children: No Employed: No Stable Relationships: Yes Supportive Family: Yes Good Rapport with Provider: Yes Interval History Identifying Information ROGER SCHMIDT is a 44-year-old M who currently lives in [place] alone, has a history of schizoaffective disorder bipolar type, and was admitted on 02/11/20 18:39 on a 201 voluntary commitment for intrusive thoughts to harm his special education case manager. Reviewed 02/14/2020. Chief Complaint "I'm excited to go to [facility]". Review of Systems Sleep Information Total Hours of Sleep: 6.5 Meal Information Percent Meal Consumed - Breakfast: 100 Percent Meal Consumed - Lunch: 100 Percent Meal Consumed - Dinner: 100 Subjective Subjective Patient was seen & assessed and interval progress reviewed with treatment team. He denies intrussive thoughts or medication concerns at this time. Unclear how much of his thoughts of harming roommate were obsessional vs attempt to manipulate. Took Klonopin TID yesterday. Tremor unchanged today. Attending group but otherwise tends to stay in room. Physical Exam Psychiatric Orientation: alert Apperance: + disheveled Eye Contact: + fair eye contact Motor Behavior: + tremor Speech: normal rate/rhythm/volume of speech Affect: euthymic affect Mood: + anxious mood Thought Process: + concrete thought process Thought Content: reality based without delusions Suicidal Thoughts: denies suicidal thoughts Homicidal Thoughts: denies homicidal thoughts Hallucinations: no auditory hallucinations and no visual hallucinations Insight: + limited insight Judgement: + limited judgement Vital Signs (Past 24 Hours) Last Vital Signs Temp 36.5 C 02/16/20 05:30 Pulse 89 02/16/20 05:32 Resp 16 02/16/20 05:30 BP 109/77 02/16/20 05:32 Pulse Ox 99 02/11/20 17:22 Results & Data (U) Current Inpatient Medications Current Inpatient Medications: Current Inpatient Medications Acetaminophen (Acetaminophen 325 Mg Tab) 650 mg PO Q4H PRN PRN Reason: Headache or Minor Fever Stop: 03/12/20 18:41 Last Admin: 02/16/20 09:06 Dose: 650 mg Documented by: Al Hydrox/Mg Hydrox/Simethicone (Aluminum/Magnesium Susp 30 Ml Udc) 30 ml PO Q4H PRN PRN Reason: GI Upset Stop: 03/12/20 18:41 Amitriptyline HCl (Amitriptyline Hcl 100 Mg Tab) 100 mg PO HS CALI Stop: 03/12/20 20:59 Last Admin: 02/15/20 22:18 Dose: 100 mg Documented by: Bismuth Subsalicylate (Bismuth Subsalicylate Liqd 236 Ml) 15 ml PO PRN PRN PRN Reason: Loose Stool Stop: 03/12/20 18:41 Clonazepam (Clonazepam 0.5 Mg Tab) 0.5 mg PO TID PRN PRN Reason: Anxiety Stop: 03/13/20 13:59 Last Admin: 02/16/20 08:49 Dose: 0.5 mg Documented by: Clozapine (Clozapine 25 Mg Tab) 300 mg PO HS CALI Stop: 03/12/20 20:59 Last Admin: 02/15/20 22:13 Dose: 300 mg Documented by: Clozapine (Clozapine 25 Mg Tab) 50 mg PO QAM CALI Stop: 03/15/20 08:59 Last Admin: 02/16/20 08:48 Dose: 50 mg Documented by: Divalproex Sodium (Divalproex Extended Release 250 Mg Tabcr) 1,500 mg PO HS CALI Stop: 03/12/20 20:59 Last Admin: 02/15/20 22:16 Dose: 1,500 mg Documented by: Docusate Sodium (Docusate Sodium 100 Mg Cap) 100 mg PO BID CALI Stop: 03/12/20 20:59 Last Admin: 02/16/20 08:49 Dose: 100 mg Documented by: Hydroxyzine HCl (Hydroxyzine Hcl 25 Mg Tab) 50 mg PO HSZ PRN PRN Reason: Insomnia Stop: 03/12/20 18:41 Hydroxyzine HCl (Hydroxyzine Hcl 25 Mg Tab) 25 mg PO Q4H PRN PRN Reason: Anxiety Stop: 03/12/20 18:41 Lisinopril (Lisinopril 5 Mg Tab) 5 mg PO QAM CALI Stop: 03/13/20 08:59 Last Admin: 02/16/20 08:49 Dose: 5 mg Documented by: Magnesium Hydroxide (Magnesium Hydroxide Susp 30 Ml Udc) 30 ml PO DAILY PRN PRN Reason: Constipation Stop: 03/12/20 18:41 Last Admin: 02/15/20 17:53 Dose: 30 ml Documented by: Propranolol HCl (Propranolol Hcl 10 Mg Tab) 10 mg PO 1200 CALI Stop: 03/13/20 11:59 Last Admin: 02/16/20 12:34 Dose: 10 mg Documented by: Simvastatin (Simvastatin 20 Mg Tab) 20 mg PO HS CALI Stop: 03/12/20 20:59 Last Admin: 02/15/20 22:13 Dose: 20 mg Documented by: Sodium Chloride (Sodium Chloride 0.65% Na Soln 45 Ml ([place])) 1 - 2 sprays NA PRN PRN PRN Reason: Nasal Dryness/Congestion Stop: 03/12/20 18:41 Vitamin D (Cholecalciferol 1,000 Units 25 Mcg Tab) 1,000 units PO QAM CALI Stop: 03/13/20 08:59 Last Admin: 02/16/20 08:49 Dose: 1,000 units Documented by: Mental Health & Subst Abuse Tx Psychiatrist Name of Psychiatrist: Sherly Lundberg Psychiatrist's Psychiatric Appointment Comment: [place] [facility] Therapist Name of Therapist: Sherly Rivero Therapist's Therapy Appointment Comment: [place] [facility] .Net Architect Name of .Net Architect: CHAPITO Castro Phone Number for .Net Architect: [phone] Case Management Appointment Comment: Wed at 1 Post Discharge Appointments Primary Care Physician Name Of Family Doctor: Susie Liao Primary Care Provider Appointment Comment: [address] [place] [address], [place] [address] Partial or Psych Rehab Name of Partial or Psych Rehab: [facility] [place] [facility] - [facility] Phone Number of Partial or Psych Rehab: [phone] Partial or Psych Rehab Appointment Comment: Thurs at 1 Contact Information Discharge Discharge Address: [address] [facility], [address] [place] [address]
[2020-02-16] MEDS: DIVALPROEX EXTENDED RELEASE 250 MG TABCR PO SCH (22:00)
[2020-02-16] MEDS: SIMVASTATIN 20 MG TAB PO SCH (22:01)
[2020-02-16] MEDS: AMITRIPTYLINE HCL 100 MG TAB PO SCH (22:01)
[2020-02-17] MEDS: lisinopriL 5 MG TAB PO SCH (09:36)
[2020-02-17] MEDS: CHOLECALCIFEROL 1,000 UNITS 25 MCG TAB PO SCH (09:36)
[2020-02-17] MEDS: cloZAPine 25 MG TAB PO SCH ×2 (09:36→22:05)
[2020-02-17] MEDS: DOCUSATE SODIUM 100 MG CAP PO SCH ×2 (09:36→22:04)
[2020-02-17] MEDS: clonazePAM 0.5 MG TAB PO PRN ×3 (09:38→22:06)
--- NOTE | 2020-02-17 10:50 | Psychiatric Progress Note ---
Date of Service February 17, 2020 Impression / Recommendations Impression 44-year-old single male with a history of schizoaffective disorder bipolar type and multiple recent hospitalizations who presents with worsening mood, paranoia, and intrusive thoughts to harm his employment case manager in the context of social isolation related to the pandemic. He has done well with clozapine and amitriptyline, and requested 1 additional dose of clonazepam as needed daily to target anxiety. We will need to coordinate with his PCM regarding ways to increase his supports and socialization outside of the hospital, as well as his PA at [facility]. Pt agreed to CRR referrals, as he is able to identify that living independently may not be helping to improve his mental health stability. Inpatient treatment is medically necessary due to the severity of symptoms and risk for harm of discharge. (1) Homicidal ideation: 02/11 -patient reports intrusive thoughts to harm his employment case manager which started yesterday, are ego dystonic, denies intent to act on them, but felt very disturbed by them. He does not have a history of violence, and feels safe here in the hospital. Continue to process and monitor. 02/12 - Pt denying intrusive, ego dystonic thoughts to harm others (employment case manager specifically mentioned on admission) 02/14--recurred last pm, MNPR 02/16--reporting improved ability to utilize coping strategies - maintain MNPR today, may be able to discontinue in the next few days if patient is ability to maintain that he does not feel compelled to act on intrusive thoughts. (2) Schizoaffective disorder: 02/11 -continue home doses of clozapine and amitriptyline -Consider titration of clozapine, which patient declined today. -Fasting labs from 01/14/2020 reviewed: FLP normal, glucose 98. -Meeting with hospital rn social services and BCM tomorrow. Patient states that he and his employment case manager discussed "new housing," which he describes as the [facility]; he may benefit from return to CRR/supported group living. 02/12 - Pt now agreeable with titration of clozapine - will add 50mg morning dose, and keep 300mg dose at HS. Advised patient of possible morning sedation and encouraged him to follow-up with clinicians should this become a concern. - Pt expressed desire for referral to a CRR - employment case manager working on referrals 02/14 declines increase in clozaril stating it's activating for him. 02/15--Impression: improved in that less anxious than yesterday Plan: continue MNPR today, reviewed that will need to tolerate a roommate at [facility] and are awaiting bed status to determine best transition plan. 02/16 - Continue current medication regimen - patient reports feeling improved ability to utilize coping skills. Denies intrusive thoughts so far this morning. - Pt pleased about progress with transition to [facility] - Given that he will be transitioning to a facility where he will be regularly interacting with others, we will want to be sure he is able to demonstrate stability with regard to how the patient responds to the presence of intrusive thoughts. (3) Anxiety: 02/11 -encourage group attendance, work on healthy coping skills and safety plan. Increase clonazepam to 0.5 mg 3 times daily as needed anxiety. 02/12 - Continue as above 02/14--reviewed 02/16--continue as above --for the most part, patient continues to only utilize two doses of clonazepam daily - but continues to have three doses availabe each day. (4) Hypertension: 02/11 - Continue home dose of lisinopril. 02/14 reviewed (5) Hyperlipidemia: 02/11 - Continue home dose simvastatin. 02/14--reviewed Risk Factors Assessment Male: Yes : Yes Do You Have Access To A Gun?: No Health Problems: Yes Mental Health Diagnoses: Yes Substance Use Disorders: No Previous Attempt: Yes Previous Psychiatric Hospitalization: Yes Hopelessness: Yes Protective Factors Assessment : No Responsible for Young Children: No Employed: No Stable Relationships: Yes Supportive Family: Yes Good Rapport with Provider: Yes Interval History Identifying Information ROGER SCHMIDT is a 44-year-old M who currently lives in [place] alone, has a history of schizoaffective disorder bipolar type, and was admitted on 02/11/20 18:39 on a 201 voluntary commitment for intrusive thoughts to harm his employment case manager. Chief Complaint "I'm feeling much better." Review of Systems Notes Constitutional: reports daytime fatigue Cardiovascular: denied Respiratory: denied Gastrointestinal: denied Neurological: denied Psychiatric: denies symptoms other than stated above Total of at least 10 systems reviewed, pertinent positives as above and in HPI. Sleep Information Total Hours of Sleep: 6.25 Meal Information Percent Meal Consumed - Breakfast: 100 Percent Meal Consumed - Lunch: 100 Percent Meal Consumed - Dinner: 100 Subjective Subjective Patient was seen & assessed and interval progress reviewed with nursing and social work. Staff report the patient is being considered for [facility], with a virtual tour of the facility to be given to the patient tomorrow. Pt has been updated of this development and was reportedly felt this transition, in addition to returning to [facility], would be beneficial for him. Pt was seen today to assess progress since admission. Pt reported he is "feeling much better." He does admit to daytime fatigue, but reports feeling as though the in creased dose of clozapine has been helpful in reducing intrusive thoughts. Pt shares his new knowledge of "ego dystonic" thoughts after discussing this term with the counselor yesterday. He reports feeling relieved to know there is a name for the thoughts and was happy to learn more about them. At this time, he reports feeling his coping strategies are helping him to effectively deal with the thoughts. He denies presence of intrusive thoughts so far this morning. Pt reports understanding of need to demonstrate continued ability to contract for safety with regard to not acting on the thoughts, especially as he is aware he will be living in a setting with numerous other individuals. Pt denies any other acute concerns at this time. He denied other needs today. Physical Exam Psychiatric Orientation: alert, oriented x 3 and cooperative Apperance: appropriately dressed, appropriately groomed and appeared stated age Eye Contact: good eye contact Motor Behavior: steady gait and station and no abnormal motor movements Speech: normal rate/rhythm/volume of speech Affect: + blunted affect Mood: no depressed mood ("I'm fine") Thought Process: goal directed thought process and thought association intact Thought Content: reality based without delusions; no hopelessness and no worthlessness Suicidal Thoughts: denies suicidal thoughts and denies suicidal intent Homicidal Thoughts: denies homicidal thoughts Hallucinations: no auditory hallucinations and no visual hallucinations Cognition: attention grossly intact and language grossly intact Insight: + limited insight Judgement: + limited judgement Vital Signs (Past 24 Hours) Last Vital Signs Temp 36.4 C 02/17/20 06:00 Pulse 88 02/17/20 06:37 Resp 18 02/17/20 06:00 BP 104/72 02/17/20 06:37 Pulse Ox 99 02/11/20 17:22 [facility] Current Inpatient Medications Current Inpatient Medications: Current Inpatient Medications Acetaminophen (Acetaminophen 325 Mg Tab) 650 mg PO Q4H PRN PRN Reason: Headache or Minor Fever Stop: 03/12/20 18:41 Last Admin: 02/16/20 22:45 Dose: 650 mg Documented by: Al Hydrox/Mg Hydrox/Simethicone (Aluminum/Magnesium Susp 30 Ml Udc) 30 ml PO Q4H PRN PRN Reason: GI Upset Stop: 03/12/20 18:41 Amitriptyline HCl (Amitriptyline Hcl 100 Mg Tab) 100 mg PO HS CALI Stop: 03/12/20 20:59 Last Admin: 02/16/20 22:01 Dose: 100 mg Documented by: Bismuth Subsalicylate (Bismuth Subsalicylate Liqd 236 Ml) 15 ml PO PRN PRN PRN Reason: Loose Stool Stop: 03/12/20 18:41 Clonazepam (Clonazepam 0.5 Mg Tab) 0.5 mg PO TID PRN PRN Reason: Anxiety Stop: 03/13/20 13:59 Last Admin: 02/17/20 09:38 Dose: 0.5 mg Documented by: Clozapine (Clozapine 25 Mg Tab) 300 mg PO HS CALI Stop: 03/12/20 20:59 Last Admin: 02/16/20 21:59 Dose: 300 mg Documented by: Clozapine (Clozapine 25 Mg Tab) 50 mg PO QAM [place] Stop: 03/15/20 08:59 Last Admin: 02/17/20 09:36 Dose: 50 mg Documented by: Divalproex Sodium (Divalproex Extended Release 250 Mg Tabcr) 1,500 mg PO HS CALI Stop: 03/12/20 20:59 Last Admin: 02/16/20 22:00 Dose: 1,500 mg Documented by: Docusate Sodium (Docusate Sodium 100 Mg Cap) 100 mg PO BID CALI Stop: 03/12/20 20:59 Last Admin: 02/17/20 09:36 Dose: 100 mg Documented by: Hydroxyzine HCl (Hydroxyzine Hcl 25 Mg Tab) 50 mg PO HSZ PRN PRN Reason: Insomnia Stop: 03/12/20 18:41 Hydroxyzine HCl (Hydroxyzine Hcl 25 Mg Tab) 25 mg PO Q4H PRN PRN Reason: Anxiety Stop: 03/12/20 18:41 Lisinopril (Lisinopril 5 Mg Tab) 5 mg PO QAM CALI Stop: 03/13/20 08:59 Last Admin: 02/17/20 09:36 Dose: 5 mg Documented by: Magnesium Hydroxide (Magnesium Hydroxide Susp 30 Ml Udc) 30 ml PO DAILY PRN PRN Reason: Constipation Stop: 03/12/20 18:41 Last Admin: 02/15/20 17:53 Dose: 30 ml Documented by: Propranolol HCl (Propranolol Hcl 10 Mg Tab) 10 mg PO 1200 CALI Stop: 03/13/20 11:59 Last Admin: 02/16/20 12:34 Dose: 10 mg Documented by: Simvastatin (Simvastatin 20 Mg Tab) 20 mg PO HS CALI Stop: 03/12/20 20:59 Last Admin: 02/16/20 22:01 Dose: 20 mg Documented by: Sodium Chloride (Sodium Chloride 0.65% Na Soln 45 Ml ([place])) 1 - 2 sprays NA PRN PRN PRN Reason: Nasal Dryness/Congestion Stop: 03/12/20 18:41 Vitamin D (Cholecalciferol 1,000 Units 25 Mcg Tab) 1,000 units PO QAM [facility]I Stop: 03/13/20 08:59 Last Admin: 02/17/20 09:36 Dose: 1,000 units Documented by: Mental Health & Subst Abuse Tx Psychiatrist Name of Psychiatrist: Sherly Lundberg Psychiatrist's Date of Appointment with Psychiatrist: 03/01/20 Time of Appointment with Psychiatrist: 9:30 a.m. Psychiatric Appointment Comment: [place] [facility] Therapist Name of Therapist: Sherly Rivero Therapist's Date of Therapist Appointment: 02/24/20 Time of Therapist Appointment: 3:00 p.m. Therapy Appointment Comment: [place] [facility] Supervisor [employer] Processing Name of Supervisor Nut Processing: CHAPITO Castro Phone Number for Supervisor Nut Processing: [phone] Case Management Appointment Comment: Wed at 1 Post Discharge Appointments Primary Care Physician Name Of Family Doctor: Susie Liao Primary Care Time of Appointment with PCP: Please follow up as needed Provider Appointment Comment: [address] [place] [address] Partial or Psych Rehab Name of Partial or Psych Rehab: [facility] - [facility] Phone Number of Partial or Psych Rehab: [phone] Partial or Psych Rehab Appointment Comment: Thmichele at 1 Other #1: Name of Aftercare Appointment: [facility] Phone Number of Aftercare Appointment: [phone] Time of Aftercare Appointment: Can go Wed or Fri (1 or 2 days) Aftercare Appointment Comment: [address], [place] [address] Contact Information Discharge Discharge Address: [address], [place] [facility], [place] [address] (1) Schizoaffective disorder Schizoaffective disorder type: unspecified Qualified Code(s): F25.9 - Schizo affective disorder, unspecified
[2020-02-17] MEDS: PROPRANOLOL HCL 10 MG TAB PO SCH (12:09)
[2020-02-17] MEDS: ACETAMINOPHEN 325 MG TAB PO PRN ×2 (17:20→22:13)
[2020-02-17] MEDS: AMITRIPTYLINE HCL 100 MG TAB PO SCH (22:06)
[2020-02-17] MEDS: SIMVASTATIN 20 MG TAB PO SCH (22:06)
[2020-02-17] MEDS: DIVALPROEX EXTENDED RELEASE 250 MG TABCR PO SCH (22:06)
[2020-02-18] MEDS: ACETAMINOPHEN 325 MG TAB PO PRN ×4 (05:55→22:40)
[2020-02-18 06:48] LABS: Basophils # (auto) 0.02 K/uL (0-0.2); Basophils % (auto) 0.3 %; Hematocrit (blood only) 38.9 % (42-52); Hemoglobin 13.1 g/dL (14.0-18.0); Immature Granulocytes # (auto) 0.13 K/uL (0.00-0.02); Immature Granulocytes % (auto) 1.6 %; Lymphocytes # (auto) 3.28 K/uL (1.2-3.4); Lymphocytes % (auto) 41.1 %; Mean Corpuscular Hemoglobin 31.3 pg (25-34); Mean Corpuscular Hgb Conc 33.7 g/dL (32-36); Mean Corpuscular Volume 93.1 fL (80-100); Mean Platelet Volume 9.2 fL (7.4-10.4); Monocytes # (auto) 0.96 K/uL (0.11-0.59); Platelet Count 229 K/uL (130-400); RDW Coefficient of Variation 12.6 % (11.5-14.5); RDW Standard Deviation 42.6 fL (36.4-46.3); Red Blood Count 4.18 M/uL (4.7-6.1); White Blood Count 7.99 K/uL (4.8-10.8)
[2020-02-18] MEDS: cloZAPine 25 MG TAB PO SCH ×2 (09:30→21:21)
[2020-02-18] MEDS: DOCUSATE SODIUM 100 MG CAP PO SCH ×2 (09:30→21:21)
[2020-02-18] MEDS: CHOLECALCIFEROL 1,000 UNITS 25 MCG TAB PO SCH (09:30)
[2020-02-18] MEDS: PROPRANOLOL HCL 10 MG TAB PO SCH (09:30)
[2020-02-18] MEDS: lisinopriL 5 MG TAB PO SCH (09:30)
[2020-02-18] MEDS: clonazePAM 0.5 MG TAB PO PRN ×3 (09:33→22:40)
--- NOTE | 2020-02-18 11:53 | Psychiatric Progress Note ---
Date of Service February 18, 2020 Impression / Recommendations Impression 44-year-old single male with a history of schizoaffective disorder bipolar type and multiple recent hospitalizations who presents with worsening mood, paranoia, and intrusive thoughts to harm his employment evaluator/case manager in the context of social isolation related to the pandemic. He has done well with clozapine and amitriptyline, and requested 1 additional dose of clonazepam as needed daily to target anxiety. We will need to coordinate with his PCM regarding ways to increase his supports and socialization outside of the hospital, as well as his PA at [facility]. Pt agreed to CRR referrals, as he is able to identify that living independently may not be helping to improve his mental health stability. Inpatient treatment is medically necessary due to the severity of symptoms and risk for harm of discharge. (1) Homicidal ideation: 02/11 -patient reports intrusive thoughts to harm his employment evaluator/case manager which started yesterday, are ego dystonic, denies intent to act on them, but felt very disturbed by them. He does not have a history of violence, and feels safe here in the hospital. Continue to process and monitor. 02/12 - Pt denying intrusive, ego dystonic thoughts to harm others (employment evaluator/case manager specifically mentioned on admission) 02/14--recurred last pm, MNPR 02/16--reporting improved ability to utilize coping strategies - maintain MNPR today, may be able to discontinue in the next few days if patient is ability to maintain that he does not feel compelled to act on intrusive thoughts. 02/17 -Pt does endorse a few episodes of intrusive thoughts, but does not go into detail about the context - he does report coping strategies have continued to be effective (2) Schizoaffective disorder: 02/11 -continue home doses of clozapine and amitriptyline -Consider titration of clozapine, which patient declined today. -Fasting labs from 01/14/2020 reviewed: FLP normal, glucose 98. -Meeting with hospital dialysis social worker and BCM tomorrow. Patient states that he and his employment evaluator/case manager discussed "new housing," which he describes as the [facility]; he may benefit from return to CRR/supported group living. 02/12 - Pt now agreeable with titration of clozapine - will add 50mg morning dose, and keep 300mg dose at HS. Advised patient of possible morning sedation and encouraged him to follow-up with clinicians should this become a concern. - Pt expressed desire for referral to a CRR - employment evaluator/case manager working on referrals 02/14 declines increase in clozaril stating it's activating for him. 02/15--Impression: improved in that less anxious than yesterday Plan: continue MNPR today, reviewed that will need to tolerate a roommate at [facility] and are awaiting bed status to determine best transition plan. 02/16 - Continue current medication regimen - patient reports feeling improved ability to utilize coping skills. Denies intrusive thoughts so far this morning. - Pt pleased about progress with transition to [facility] - Given that he will be transitioning to a facility where he will be regularly interacting with others, we will want to be sure he is able to demonstrate stability with regard to how the patient responds to the presence of intrusive thoughts. 02/17 - Continue treatment plan as above - Continue process of transition to [facility], patient to have tour of [facility] today (3) Anxiety: 02/11 -encourage group attendance, work on healthy coping skills and safety plan. Increase clonazepam to 0.5 mg 3 times daily as needed anxiety. 02/12 - Continue as above 02/14--reviewed 02/16--continue as above --for the most part, patient continues to only utilize two doses of clonazepam daily - but continues to have three doses availabe each day. (4) Hypertension: 02/11 - Continue home dose of lisinopril. 02/14 reviewed (5) Hyperlipidemia: 02/11 - Continue home dose simvastatin. 02/14--reviewed Risk Factors Assessment Male: Yes : Yes Do You Have Access To A Gun?: No Health Problems: Yes Mental Health Diagnoses: Yes Substance Use Disorders: No Previous Attempt: Yes Previous Psychiatric Hospitalization: Yes Hopelessness: Yes Protective Factors Assessment : No Responsible for Young Children: No Employed: No Stable Relationships: Yes Supportive Family: Yes Good Rapport with Provider: Yes Interval History Identifying Information ROGER SCHMIDT is a 44-year-old M who currently lives in [place] alone, has a history of schizoaffective disorder bipolar type, and was admitted on 02/11/20 18:39 on a 201 voluntary commitment for intrusive thoughts to harm his employment evaluator/case manager. Chief Complaint "I'm doing good. Just getting some sleep until the next group." Review of Systems Notes Constitutional: denied Cardiovascular: denied Respiratory: denied Gastrointestinal: denied Neurological: denied Psychiatric: denies symptoms other than stated above Total of at least 10 systems reviewed, pertinent positives as above and in HPI. Sleep Information Total Hours of Sleep: 5.5 Meal Information Percent Meal Consumed - Breakfast: 90 Percent Meal Consumed - Lunch: 100 Percent Meal Consumed - Dinner: 100 Subjective Subjective Patient was seen & assessed and interval progress reviewed with treatment team. Staff report the patient has been participating in group programming. He is scheduled to participate in a virtual tour of [facility] today. Pt was seen won cardona to assess progress since admission. Pt reports he is feeling a bit tired today, and is "just getting some sleep until the next group." Pt reports ongoing events of intrusive thoughts, but declines to go into specifics about the content of these thoughts. Pt states that his coping strategies continue to be effective and he feels he is able to appropriate process through or distract himself from these thoughts when needed. Pt denies SI and other safety concerns at this time. He is aware of scheduled virtual tour today and remains agreeable with plan for transfer to [facility]. We did review anticipated discharge when the facility can accommodate him moving in, which he stated he was fine with. Pt denies other needs or concerns at this time. Physical Exam Psychiatric Orientation: alert, oriented x 3 and cooperative Apperance: appropriately dressed, + disheveled (appearing somewhat unkempt) and appeared stated age Eye Contact: good eye contact Motor Behavior: steady gait and station and no abnormal motor movements Speech: normal rate/rhythm/volume of speech (rather brief responses to questions) Affect: + blunted affect (appearing somewhat sedated) and mood congruent with affect Mood: no depressed mood and no anxious mood Thought Process: goal directed thought process and clear/coherent thought process Thought Content: reality based without delusions; no preoccupation (admits to ongoing episodes of intrusive thoughts, less frequent/severe), no hopelessness and no worthlessness Suicidal Thoughts: denies suicidal thoughts and denies suicidal intent Homicidal Thoughts: denies homicidal thoughts Hallucinations: no auditory hallucinations and no visual hallucinations Cognition: attention grossly intact and language grossly intact Insight: + limited insight (improving over course of admission, but limited overall) Judgement: + limited judgement Vital Signs (Past 24 Hours) Last Vital Signs Temp 36.5 C 02/18/20 06:50 Pulse 80 02/18/20 06:50 Resp 16 02/18/20 06:50 BP 120/81 02/18/20 06:50 Pulse Ox 99 02/11/20 17:22 Results & Data ([facility]) Laboratory Results Laboratory Results - last 24 hr 02/18/20 06:35 WBC 7.99 RBC 4.18 L Hgb 13.1 L Hct 38.9 L MCV 93.1 MCH 31.3 MCHC 33.7 RDW Std Deviation 42.6 RDW Coeff of Levy 12.6 Plt Count 229 MPV 9.2 Immature Gran % (Auto) 1.6 Neut % (Auto) 45.0 Lymph % (Auto) 41.1 [place] % (Auto) 12.0 Eos % (Auto) 0.0 Baso % (Auto) 0.3 Neut # (Auto) 3.60 Lymph # (Auto) 3.28 [place] # (Auto) 0.96 H Eos # (Auto) 0.00 Baso # (Auto) 0.02 Immature Gran # (Auto) 0.13 H Current Inpatient Medications Current Inpatient Medications: Current Inpatient Medications Acetaminophen (Acetaminophen 325 Mg Tab) 650 mg PO Q4H PRN PRN Reason: Headache or Minor Fever Stop: 03/12/20 18:41 Last Admin: 02/18/20 10:44 Dose: 650 mg Documented by: Al Hydrox/Mg Hydrox/Simethicone (Aluminum/Magnesium Susp 30 Ml Udc) 30 ml PO Q4H PRN PRN Reason: GI Upset Stop: 03/12/20 18:41 Amitriptyline HCl (Amitriptyline Hcl 100 Mg Tab) 100 mg PO HS CALI Stop: 03/12/20 20:59 Last Admin: 02/17/20 22:06 Dose: 100 mg Documented by: Bismuth Subsalicylate (Bismuth Subsalicylate Liqd 236 Ml) 15 ml PO PRN PRN PRN Reason: Loose Stool Stop: 03/12/20 18:41 Clonazepam (Clonazepam 0.5 Mg Tab) 0.5 mg PO TID PRN PRN Reason: Anxiety Stop: 03/13/20 13:59 Last Admin: 02/18/20 09:33 Dose: 0.5 mg Documented by: Clozapine (Clozapine 25 Mg Tab) 300 mg PO HS CALI Stop: 10/30/20 20:59 Last Admin: 02/17/20 22:05 Dose: 300 mg Documented by: Clozapine (Clozapine 25 Mg Tab) 50 mg PO QAM [facility] Stop: 03/15/20 08:59 Last Admin: 02/18/20 09:30 Dose: 50 mg Documented by: Divalproex Sodium (Divalproex Extended Release 250 Mg Tabcr) 1,500 mg PO [facility] Stop: 03/12/20 20:59 Last Admin: 02/17/20 22:06 Dose: 1,500 mg Documented by: Docusate Sodium (Docusate Sodium 100 Mg Cap) 100 mg PO BID [facility] Stop: 03/12/20 20:59 Last Admin: 02/18/20 09:30 Dose: 100 mg Documented by: Hydroxyzine HCl (Hydroxyzine Hcl 25 Mg Tab) 50 mg PO HSZ PRN PRN Reason: Insomnia Stop: 03/12/20 18:41 Hydroxyzine HCl (Hydroxyzine Hcl 25 Mg Tab) 25 mg PO Q4H PRN PRN Reason: Anxiety Stop: 03/12/20 18:41 Lisinopril (Lisinopril 5 Mg Tab) 5 mg PO QAM [facility] Stop: 03/13/20 08:59 Last Admin: 02/18/20 09:30 Dose: 5 mg Documented by: Magnesium Hydroxide (Magnesium Hydroxide Susp 30 Ml Udc) 30 ml PO DAILY PRN PRN Reason: Constipation Stop: 03/12/20 18:41 Last Admin: 02/15/20 17:53 Dose: 30 ml Documented by: Propranolol HCl (Propranolol Hcl 10 Mg Tab) 10 mg PO 1200 [facility] Stop: 03/13/20 11:59 Last Admin: 02/18/20 09:30 Dose: 10 mg Documented by: Simvastatin (Simvastatin 20 Mg Tab) 20 mg PO HS [facility] Stop: 03/12/20 20:59 Last Admin: 02/17/20 22:06 Dose: 20 mg Documented by: Sodium Chloride (Sodium Chloride 0.65% Na Soln 45 Ml ([place])) 1 - 2 sprays NA PRN PRN PRN Reason: Nasal Dryness/Congestion Stop: 03/12/20 18:41 Vitamin D (Cholecalciferol 1,000 Units 25 Mcg Tab) [facility] Stop: 03/13/20 08:59 Last Admin: 02/18/20 09:30 Dose: 1,000 units Documented by: Mental Health & Subst Abuse Tx Psychiatrist Name of Psychiatrist: Sherly Lundberg Psychiatrist's Date of Appointment with Psychiatrist: 03/01/20 Time of Appointment with Psychiatrist: 9:30 a.m. Psychiatric Appointment Comment: [place] [facility] Therapist Name of Therapist: Sherly Rivero Therapist's Date of Therapist Appointment: 02/24/20 Time of Therapist Appointment: 3:00 p.m. Therapy Appointment Comment: [place] [facility] Light Equipment Operator Name of Light Equipment Operator: CHAPITO Castro Phone Number for Light Equipment Operator: [phone] Case Management Appointment Comment: Wed at 1 Post Discharge Appointments Primary Care Physician Name Of Family Doctor: Susie Liao Primary Care Time of Appointment with PCP: Please follow up as needed Provider Appointment Comment: [address] [facility] [place] [address] Partial or Psych Rehab Name of Partial or Psych Rehab: [facility] Psych Re[facility] - [facility] Phone Number of Partial or Psych Rehab: [phone] Partial or Psych Rehab Appointment Comment: Thurs at 1 Other #1: Name of Aftercare Appointment: [facility] Phone Number of Aftercare Appointment: [phone] Time of Aftercare Appointment: Can go Wed or Fri (1 or 2 days) Aftercare Appointment Comment: [address], [place] [address] Contact Information Discharge Discharge Address: [address] [place] [address], [place] [address] (1) Schizoaffective disorder Schizoaffective disorder type: unspecified Qualified Code(s): F25.9 - Schizoaffective disorder, unspecified
[2020-02-18] MEDS: MAGNESIUM HYDROXIDE SUSP 30 ML UDC PO PRN (18:28)
[2020-02-18] MEDS: SIMVASTATIN 20 MG TAB PO SCH (21:21)
[2020-02-18] MEDS: DIVALPROEX EXTENDED RELEASE 250 MG TABCR PO SCH (21:21)
[2020-02-18] MEDS: AMITRIPTYLINE HCL 100 MG TAB PO SCH (21:21)
[2020-02-19] MEDS: ACETAMINOPHEN 325 MG TAB PO PRN ×2 (05:07→22:33)
[2020-02-19] MEDS: MAGNESIUM HYDROXIDE SUSP 30 ML UDC PO PRN (05:12)
[2020-02-19] MEDS: clonazePAM 0.5 MG TAB PO PRN ×2 (08:52→21:55)
[2020-02-19] MEDS: cloZAPine 25 MG TAB PO SCH (08:54)
[2020-02-19] MEDS: DOCUSATE SODIUM 100 MG CAP PO SCH ×2 (08:55→21:57)
[2020-02-19] MEDS: CHOLECALCIFEROL 1,000 UNITS 25 MCG TAB PO SCH (08:55)
[2020-02-19] MEDS: lisinopriL 5 MG TAB PO SCH (08:55)
--- NOTE | 2020-02-19 09:41 | Psychiatric Progress Note ---
Date of Service February 19, 2020 Impression / Recommendations Impression 44-year-old single male with a history of schizoaffective disorder bipolar type and multiple recent hospitalizations who presents with worsening mood, paranoia, and intrusive thoughts to harm his correctional case manager in the context of social isolation related to the pandemic. He has done well with clozapine and amitriptyline, and requested 1 additional dose of clonazepam as needed daily to target anxiety. We will need to coordinate with his PCM regarding ways to increase his supports and socialization outside of the hospital, as well as his PA at [facility]. Pt agreed to CRR referrals, as he is able to identify that living independently may not be helping to improve his mental health stability. Pt was accepted at [facility], with anticipated discharge on 02/22. Inpatient treatment is medically necessary due to the severity of symptoms and risk for harm of discharged home without facilitating direct transition to [facility]. (1) Homicidal ideation: 02/11 -patient reports intrusive thoughts to harm his correctional case manager which started yesterday, are ego dystonic, denies intent to act on them, but felt very disturbed by them. He does not have a history of violence, and feels safe here in the hospital. Continue to process and monitor. 02/12 - Pt denying intrusive, ego dystonic thoughts to harm others (correctional case manager specifically mentioned on admission) 02/14--recurred last pm, MNPR 02/16--reporting improved ability to utilize coping strategies - maintain MNPR today, may be able to discontinue in the next few days if patient is ability to maintain that he does not feel compelled to act on intrusive thoughts. 02/17 -Pt does endorse a few episodes of intrusive thoughts, but does not go into detail about the context - he does report coping strategies have continued to be effective 02/18 - Pt denies intrusive thoughts since yesterday (2) Schizoaffective disorder: 02/11 -continue home doses of clozapine and amitriptyline -Consider titration of clozapine, which patient declined today. -Fasting labs from 01/14/2020 reviewed: FLP normal, glucose 98. -Meeting with hospital social worker masters and BCM tomorrow. Patient states that he and his correctional case manager discussed "new housing," which he describes as the [facility]; he may benefit from return to CRR/supported group living. 10/2 - Pt now agreeable with titration of clozapine - will add 50mg morning dose, and keep 300mg dose at HS. Advised patient of possible morning sedation and encouraged him to follow-up with clinicians should this become a concern. - Pt expressed desire for referral to a CRR - correctional case manager working on referrals 02/14 declines increase in clozaril stating it's activating for him. 02/15--Impression: improved in that less anxious than yesterday Plan: continue MNPR today, reviewed that will need to tolerate a roommate at [facility] and are awaiting bed status to determine best transition plan. 02/16 - Continue current medication regimen - patient reports feeling improved ability to utilize coping skills. Denies intrusive thoughts so far this morning. - Pt pleased about progress with transition to [facility] - Given that he will be transitioning to a facility where he will be regularly interacting with others, we will want to be sure he is able to demonstrate stability with regard to how the patient responds to the presence of intrusive thoughts. 02/17 - 02/18 - Continue treatment plan as above - Continue process of transition to [facility], patient to have tour of [facility] today (3) Anxiety: 02/11 -encourage group attendance, work on healthy coping skills and safety plan. Increase clonazepam to 0.5 mg 3 times daily as needed anxiety. 02/12 - Continue as above 02/14--reviewed 02/16--continue as above --for the most part, patient continues to only utilize two doses of clonazepam daily - but continues to have three doses availabe each day. (4) Hypertension: 02/11 - Continue home dose of lisinopril. 02/14 reviewed (5) Hyperlipidemia: 02/11 - Continue home dose simvastatin. 02/14--reviewed Risk Factors Assessment Male: Yes : Yes Do You Have Access To A Gun?: No Health Problems: Yes Mental Health Diagnoses: Yes Substance Use Disorders: No Previous Attempt: Yes Previous Psychiatric Hospitalization: Yes Hopelessness: Yes Protective Factors Assessment : No Responsible for Young Children: No Employed: No Stable Relationships: Yes Supportive Family: Yes Good Rapport with Provider: Yes Interval History Identifying Information ROGER SCHMIDT is a 44-year-old M who currently lives in [place] alone, has a history of schizoaffective disorder bipolar type, and was admitted on 02/11/20 18:39 on a 201 voluntary commitment for intrusive thoughts to harm his correctional case manager. Chief Complaint "I don't know. My back is killing me." Review of Systems Notes Constitutional: denied Cardiovascular: denied Respiratory: denied Gastrointestinal: reports bloating and constipation Genitourinary: denied pain/burning w/ urination, denied blood in urine Neurological: denied Musculoskeletal: reports lower back pain Psychiatric: denies symptoms other than stated above Total of at least 10 systems reviewed, pertinent positives as above and in HPI. Sleep Information Total Hours of Sleep: 6.25 Meal Information Percent Meal Consumed - Breakfast: 100 Percent Meal Consumed - Lunch: 100 Percent Meal Consumed - Dinner: 100 Subjective Subjective Patient was seen & assessed and interval progress reviewed with nursing and social work. Staff report the patient has continued to participate in group and recreational programming. Anticipated discharge date of 02/22, according to [facility]'s ability to accommodate the patient's transition to their facility. Pt was seen today to assess progress since admission. Pt is observed to be in bed, with staff having informed this PA-C of patient's complaints of back pain. Pt reported "I don't know. My back is killing me." Pt states that the pain began last evening. He describes the pain as a sharp pain to his lower back, somewhat more prevalent on the left side. Pt himself reports the pain feels "muscular" in nature. He admits to movements aggravate the pain. He has been using acetaminophen and heat without much improvement per his reports. Pt does admit to also feeling bloated and constipated. He requested Miralax, which was ordered. The patient believes that he has gained weight due to being in the hospital, and feels that weight gain in addition to bloating is putting additional strain on his back. Pt was agreeable with addition of ibuprofen to alternate with acetaminophen for pain. He was also encouraged to continue to utilize heating pad and warm showers, as well as some simple stretching/massage. Pt was encouraged to inform staff of any significant change in presentation of pain. He did deny history of kidney stones. He is denying pain or burning with urination, and denies blood in his urine. Skin of the affected region was also examined and was found to be without any gross abnormalities. Pt stated he will keep staff informed of any changes. Otherwise, he denies significant concerns. He does admit "the pain is making it hard" - and when asked to clarify, he reports "it's making thinking about the transition to [facility] hard." Pt denies intrusive thoughts since our conversation yesterday early afternoon. He denies any additional safety concerns. Physical Exam Psychiatric Orientation: alert, oriented x 3 and cooperative Apperance: appropriately dressed, appropriately groomed and appeared stated age Eye Contact: good eye contact Motor Behavior: steady gait and station; + abnormal motor movements (some hesitancy with movements, related to back pain) Speech: normal rate/rhythm/volume of speech Affect: + blunted affect and + constricted affect Mood: no depressed mood Thought Process: goal directed thought process, + concrete thought process and thought association intact Thought Content: + preoccupation (with current back pain) and reality based with out delusions; no hopelessness and no worthlessness Suicidal Thoughts: denies suicidal thoughts Homicidal Thoughts: denies homicidal thoughts denies ego dystonic thoughts to harm others since yesterday morning Hallucinations: no auditory hallucinations and no visual hallucinations Cognition: attention grossly intact and language grossly intact Estimated Intelligence: consistent with education level Insight: + limited insight Judgement: + limited judgement Vital Signs (Past 24 Hours) Last Vital Signs Temp 36.5 C 02/19/20 06:24 Pulse 94 H 02/19/20 06:25 Resp 20 02/19/20 06:24 BP 121/81 02/19/20 06:25 Pulse Ox 99 02/11/20 17:22 Skin no rashes, warm and dry (no bruising or rash observed to lower back, where pain is reported by pt) Results & Data ([facility] [place]) Current Inpatient Medications Current Inpatient Medications: Current Inpatient Medications Acetaminophen (Acetaminophen 325 Mg Tab) 650 mg PO Q4H PRN PRN Reason: Headache or Minor Fever Stop: 03/12/20 18:41 Last Admin: 02/19/20 05:07 Dose: 650 mg Documented by: Al Hydrox/Mg Hydrox/Simethicone (Aluminum/Magnesium Susp 30 Ml Udc) 30 ml PO Q4H PRN PRN Reason: GI Upset Stop: 03/12/20 18:41 Amitriptyline HCl (Amitriptyline Hcl 100 Mg Tab) 100 mg PO HS CALI Stop: 03/12/20 20:59 Last Admin: 02/18/20 21:21 Dose: 100 mg Documented by: Bismuth Subsalicylate (Bismuth Subsalicylate Liqd 236 Ml) 15 ml PO PRN PRN PRN Reason: Loose Stool Stop: 03/12/20 18:41 Clonazepam (Clonazepam 0.5 Mg Tab) 0.5 mg PO TID PRN PRN Reason: Anxiety Stop: 03/13/20 13:59 Last Admin: 02/19/20 08:52 Dose: 0.5 mg Documented by: Clozapine (Clozapine 25 Mg Tab) 300 mg PO HS CALI Stop: 03/12/20 20:59 Last Admin: 02/18/20 21:21 Dose: 300 mg Documented by: Clozapine (Clozapine 25 Mg Tab) 50 mg PO QAM CALI Stop: 03/15/20 08:59 Last Admin: 02/19/20 08:54 Dose: 50 mg Documented by: Divalproex Sodium (Divalproex Extended Release 250 Mg Tabcr) 1,500 mg PO HS CALI Stop: 03/12/20 20:59 Last Admin: 02/18/20 21:21 Dose: 1,500 mg Documented by: Docusate Sodium (Docusate Sodium 100 Mg Cap) 100 mg PO BID CALI Stop: 03/12/20 20:59 Last Admin: 02/19/20 08:55 Dose: 100 mg Documented by: Hydroxyzine HCl (Hydroxyzine Hcl 25 Mg Tab) 50 mg PO HSZ PRN PRN Reason: Insomnia Stop: 03/12/20 18:41 Hydroxyzine HCl (Hydroxyzine Hcl 25 Mg Tab) 25 mg PO Q4H PRN PRN Reason: Anxiety Stop: 03/12/20 18:41 Ibuprofen (Ibuprofen 600 Mg Tab) 600 mg PO Q6H PRN PRN Reason: Pain Stop: 03/20/20 09:29 Lisinopril (Lisinopril 5 Mg Tab) 5 mg PO QAM CALI Stop: 03/13/20 08:59 Last Admin: 02/19/20 08:55 Dose: 5 mg Documented by: Magnesium Hydroxide (Magnesium Hydroxide Susp 30 Ml Udc) 30 ml PO DAILY PRN PRN Reason: Constipation Stop: 03/12/20 18:41 Last Admin: 02/19/20 05:12 Dose: 30 ml Documented by: Polyethylene Glycol (Polyethylene (Miralax) 17 Gm Pack) 17 gm PO DAILY PRN PRN Reason: Constipation Stop: 03/20/20 08:52 Propranolol HCl (Propranolol Hcl 10 Mg Tab) 10 mg PO 1200 CALI Stop: 03/13/20 11:59 Last Admin: 02/18/20 09:30 Dose: 10 mg Documented by: Simvastatin (Simvastatin 20 Mg Tab) 20 mg PO HS CALI Stop: 03/12/20 20:59 Last Admin: 02/18/20 21:21 Dose: 20 mg Documented by: Sodium Chloride (Sodium Chloride 0.65% Na Soln 45 Ml ([place])) 1 - 2 sprays NA PRN PRN PRN Reason: Nasal Dryness/Congestion Stop: 03/12/20 18:41 Vitamin D (Cholecalciferol 1,000 Units 25 Mcg Tab) 1,000 units PO QAM CALI Stop: 03/13/20 08:59 Last Admin: 02/19/20 08:55 Dose: 1,000 units Documented by: Mental Health & Subst Abuse Tx Psychiatrist Name of Psychiatrist: Sherly Lundberg Psychiatrist's Date of Appointment with Psychiatrist: 03/01/20 Time of Appointment with Psychiatrist: 9:30 a.m. Psychiatric Appointment Comment: [facility] Therapist Name of Therapist: Sherly Rivero Therapist's Date of Therapist Appointment: 02/24/20 Time of Therapist Appointment: 3:00 p.m. Therapy Appointment Comment: [facility] Assistant Broker Name of Assistant Broker: CHAPITO Castro Phone Number for Assistant Broker: [phone] Case Management Appointment Comment: Wed at 1 Post Discharge Appointments Primary Care Physician Name Of Family Doctor: Susie [facility] Time of Appointment with PCP: Please follow up as needed [facility] [address] [facility] [place] [address] Partial or Psych Rehab Name of Partial or Psych Rehab: [facility] Phone Number of Partial or Psych Rehab: [phone] Partial or Psych Rehab Appointment Comment: Thurs at 1 Other #1: Name of Aftercare Appointment: [facility] Phone Number of Aftercare Appointment: [phone] Time of Aftercare Appointment: Can go Wed or Fri (1 or 2 days) Aftercare Appointment Comment: [id number], [place] [address] Contact Information Discharge Discharge Address: [address] [facility], [place] [address] (1) Schizoaffective disorder Schizoaffective disorder type: unspecified Qualified Code(s): F25.9 - Schizoaffective disorder, unspecified
[2020-02-19] MEDS: POLYETHYLENE (MIRALAX) 17 GM PACK PO PRN (09:55)
[2020-02-19] MEDS: IBUPROFEN 600 MG TAB PO PRN (09:58)
[2020-02-19] MEDS: PROPRANOLOL HCL 10 MG TAB PO SCH (13:12)
[2020-02-19] MEDS: cloZAPine 100 MG TAB PO SCH (21:56)
[2020-02-19] MEDS: AMITRIPTYLINE HCL 100 MG TAB PO SCH (21:56)
[2020-02-19] MEDS: SIMVASTATIN 20 MG TAB PO SCH (21:56)
[2020-02-19] MEDS: DIVALPROEX EXTENDED RELEASE 250 MG TABCR PO SCH (21:56)
[2020-02-20] MEDS: IBUPROFEN 600 MG TAB PO PRN (05:44)
[2020-02-20] MEDS: MAGNESIUM HYDROXIDE SUSP 30 ML UDC PO PRN (05:45)
[2020-02-20] MEDS: POLYETHYLENE (MIRALAX) 17 GM PACK PO PRN (08:56)
[2020-02-20] MEDS: cloZAPine 25 MG TAB PO SCH (08:57)
[2020-02-20] MEDS: CHOLECALCIFEROL 1,000 UNITS 25 MCG TAB PO SCH (08:58)
[2020-02-20] MEDS: lisinopriL 5 MG TAB PO SCH (08:59)
[2020-02-20] MEDS: DOCUSATE SODIUM 100 MG CAP PO SCH ×2 (08:59→22:06)
[2020-02-20] MEDS: clonazePAM 0.5 MG TAB PO PRN ×3 (09:06→22:07)
--- NOTE | 2020-02-20 09:30 | Psychiatric Progress Note ---
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 He has done well with clozapine and amitriptyline, and requested 1 additional dose of clonazepam as needed daily to target anxiety. We will need to coordinate with his PCM regarding ways to increase his supports and socialization outside of the hospital, as well as his PA at [facility]. Pt agreed to CRR referrals, as he is able to identify that living independently may not be helping to improve his mental health stability. Pt was accepted at [facility], with anticipated discharge on 02/22. Inpatient treatment is medically necessary due to the severity of symptoms and risk for harm of discharged home without facilitating direct transition to [facility]. (1) Homicidal ideation: 02/11 -patient reports intrusive thoughts to harm his machine adjuster leader case trim which started yesterday, are ego dystonic, denies intent to act on them, but felt very disturbed by them. He does not have a history of violence, and feels safe here in the hospital. Continue to process and monitor. 02/12 - Pt denying intrusive, ego dystonic thoughts to harm others (machine adjuster leader case trim specifically mentioned on admission) 02/14--recurred last pm, MNPR 02/16--reporting improved ability to utilize coping strategies - maintain MNPR today, may be able to discontinue in the next few days if patient is ability to maintain that he does not feel compelled to act on intrusive thoughts. 02/17 -Pt does endorse a few episodes of intrusive thoughts, but does not go into detail about the context - he does report coping strategies have continued to be effective 02/18 - Pt denies intrusive thoughts since yesterday (2) Schizoaffective disorder: 02/11 -continue home doses of clozapine and amitriptyline -Consider titration of clozapine, which patient declined today. -Fasting labs from 01/14/2020 reviewed: FLP normal, glucose 98. -Meeting with hospital social media coordinator and BCM tomorrow. Patient states that he and his machine adjuster leader case trim discussed "new housing," which he describes as the [facility]; he may benefit from return to CRR/supported group living. 10/2 - Pt now agreeable with titration of clozapine - will add 50mg morning dose, and keep 300mg dose at HS. Advised patient of possible morning sedation and encouraged him to follow-up with clinicians should this become a concern. - Pt expressed desire for referral to a CRR - machine adjuster leader case trim working on referrals 02/14 declines increase in clozaril stating it's activating for him. 02/15--Impression: improved in that less anxious than yesterday Plan: continue MNPR today, reviewed that will need to tolerate a roommate at [facility] and are awaiting bed status to determine best transition plan. 02/16 - Continue current medication regimen - patient reports feeling improved ability to utilize coping skills. Denies intrusive thoughts so far this morning. - Pt pleased about progress with transition to [facility] - Given that he will be transitioning to a facility where he will be regularly interacting with others, we will want to be sure he is able to demonstrate stability with regard to how the patient responds to the presence of intrusive thoughts. 02/17 - 02/19 - Continue treatment plan as above - Continue process of transition to [facility], patient to have tour of [facility] today 02/19 - will discontinue patient's MNPR to ensure he is able to safely tolerate interactions with other individuals before being discharged to [facility] (3) Anxiety: 02/11 -encourage group attendance, work on healthy coping skills and safety plan. Increase clonazepam to 0.5 mg 3 times daily as needed anxiety. 02/12 - Continue as above 02/14--reviewed 02/16--continue as above --for the most part, patient continues to only utilize two doses of clonazepam daily - but continues to have three doses availabe each day. (4) Hypertension: 02/11 - Continue home dose of lisinopril. 02/14 reviewed (5) Hyperlipidemia: 02/11 - Continue home dose simvastatin. 02/14--reviewed Risk Factors Assessment Male: Yes : Yes Do You Have Access To A Gun?: No Health Problems: Yes Mental Health Diagnoses: Yes Substance Use Disorders: No Previous Attempt: Yes Previous Psychiatric Hospitalization: Yes Hopelessness: Yes Protective Factors Assessment : No Responsible for Young Children: No Employed: No Stable Relationships: Yes Supportive Family: Yes Good Rapport with Provider: Yes Interval History Identifying Information ROGER SCHMIDT is a 44-year-old M who currently lives in [place] alone, has a history of schizoaffective disorder bipolar type, and was admitted on 02/11/20 18:39 on a 201 voluntary commitment for intrusive thoughts to harm his machine adjuster leader case trim. Chief Complaint "Did they tell you? My back is still hurting." Review of Systems Notes Constitutional: denied Cardiovascular: denied Respiratory: denied Gastrointestinal: denied Neurological: denied Musculoskeletal: reports ongoing back pain Psychiatric: denies symptoms other than stated above Total of at least 10 systems reviewed, pertinent positives as above and in HPI. Sleep Information Total Hours of Sleep: 6.75 Meal Information Percent Meal Consumed - Breakfast: 100 Percent Meal Consumed - Lunch: 25 Percent Meal Consumed - Dinner: 100 Subjective Subjective Patient was seen & assessed and interval progress reviewed with treatment team. Staff report the patient has been participating in group programming. He remains agreeable with discharge to [facility] on 02/22 as discussed with the facility. Pt reportedly continued to verbalize back pain throughout the evening, but had declined suggested interventions. Pt was seen today to assess progress since admission. Pt saw this provider earlier in the morning and stated "Did they tell you? My back is still hurting." He was observed to be walking normally without complaints and was observed to have no difficulty changing positions when standing up to leave community meeting. Later in the afternoon, the patient was found to be laying on his mattress on the floor of his room, stating his back pain is continuing. He does admits that use of acetaminophen and ibuprofen have been helpful for the pain. Pt denies any changes to the pain's presentation at this time. Pt admits "I'm coping" and denies any acute mood or anxiety concerns today. He denies any episodes of intrusive thoughts. We discussed plan to discontinue the patient's private room in anticipation for discharge to [facility] after the weekend, where he will be expected to appropriately and safely interact with other individuals. Pt reported feeling comfortable with discontinuation of a private room at this time. Pt denies SI/HI as well as other concerns today. Physical Exam Psychiatric Orientation: alert, oriented x 3 and cooperative Apperance: appropriately dressed, + disheveled (appearing somewhat unkempt) and appeared stated age Eye Contact: + fair eye contact Motor Behavior: steady gait and station; + abnormal motor movements Pt is episodically wincing and reporting back pain when engaged in conversations, but has been observed to complete the same movements without any issues or complaints when staff is not actively showing the patient attention. Speech: normal rate/rhythm/volume of speech Affect: + blunted affect and + constricted affect affect seems to be baseline for patient Mood: + anxious mood (reportedly related to back pain, but states "I'm coping") Thought Process: goal directed thought process and + concrete thought process Thought Content: reality based without delusions; no hopelessness and no worthlessness Suicidal Thoughts: denies suicidal thoughts and denies suicidal intent Homicidal Thoughts: denies homicidal thoughts denying intrusive thoughts to harm self/others Hallucinations: no auditory hallucinations and no visual hallucinations Cognition: attention grossly intact and language grossly intact Estimated Intelligence: consistent with education level Insight: + limited insight (though improved overall since admission) Judgement: + limited judgement Vital Signs (Past 24 Hours) Last Vital Signs Temp 36.4 C L 02/20/20 06:27 Pulse 99 H 02/20/20 06:27 Resp 18 02/20/20 06:27 BP 133/87 02/20/20 06:27 Pulse Ox 99 02/11/20 17:22 Results & Data ([facility]) Current Inpatient Medications Current Inpatient Medications: Current Inpatient Medications Acetaminophen (Acetaminophen 325 Mg Tab) 650 mg PO Q4H PRN PRN Reason: Headache or Minor Fever Stop: 03/12/20 18:41 Last Admin: 02/19/20 22:33 Dose: 650 mg Documented by: Al Hydrox/Mg Hydrox/Simethicone (Aluminum/Magnesium Susp 30 Ml Udc) 30 ml PO Q4H PRN PRN Reason: GI Upset Stop: 03/12/20 18:41 Amitriptyline HCl (Amitriptyline Hcl 100 Mg Tab) 100 mg PO HS CALI Stop: 03/12/20 20:59 Last Admin: 02/19/20 21:56 Dose: 100 mg Documented by: Bismuth Subsalicylate (Bismuth Subsalicylate Liqd 236 Ml) 15 ml PO PRN PRN PRN Reason: Loose Stool Stop: 03/12/20 18:41 Clonazepam (Clonazepam 0.5 Mg Tab) 0.5 mg PO TID PRN PRN Reason: Anxiety Stop: 03/13/20 13:59 Last Admin: 02/20/20 09:06 Dose: 0.5 mg Documented by: Clozapine (Clozapine 25 Mg Tab) 50 mg PO QAM [facility] Stop: 03/15/20 08:59 Last Admin: 02/20/20 08:57 Dose: 50 mg Documented by: Clozapine (Clozapine 100 Mg Tab) 300 mg PO [facility] Stop: 03/20/20 21:59 Last Admin: 02/19/20 21:56 Dose: 300 mg Documented by: Divalproex Sodium (Divalproex Extended Release 250 Mg Tabcr) 1,500 mg PO [facility] Stop: 03/12/20 20:59 Last Admin: 02/19/20 21:56 Dose: 1,500 mg Documented by: Docusate Sodium (Docusate Sodium 100 Mg Cap) 100 mg PO BID [facility] Stop: 03/12/20 20:59 Last Admin: 02/20/20 08:59 Dose: 100 mg Documented by: Hydroxyzine HCl (Hydroxyzine Hcl 25 Mg Tab) 50 mg PO HSZ PRN PRN Reason: Insomnia Stop: 03/12/20 18:41 Hydroxyzine HCl (Hydroxyzine Hcl 25 Mg Tab) 25 mg PO Q4H PRN PRN Reason: Anxiety Stop: 03/12/20 18:41 Ibuprofen (Ibuprofen 600 Mg Tab) 600 mg PO Q6H PRN PRN Reason: Pain Stop: 03/20/20 09:29 Last Admin: 02/20/20 05:44 Dose: 600 mg Documented by: Lisinopril (Lisinopril 5 Mg Tab) [facility] Stop: 03/13/20 08:59 Last Admin: 02/20/20 08:59 Dose: 5 mg Documented by: Magnesium Hydroxide (Magnesium Hydroxide Susp 30 Ml Ud) 30 ml PO DAILY PRN PRN Reason: Constipation Stop: 03/12/20 18:41 Last Admin: 02/20/20 05:45 Dose: 30 ml Documented by: Polyethylene Glycol (Polyethylene (Miralax) 17 Gm Pack) 17 gm PO DAILY PRN PRN Reason: Constipation Stop: 03/20/20 08:52 Last Admin: 02/20/20 08:56 Dose: 17 gm Documented by: Propranolol HCl (Propranolol Hcl 10 Mg Tab) 10 mg PO 1200 [facility] Stop: 03/13/20 11:59 Last Admin: 02/19/20 13:12 Dose: 10 mg Documented by: Simvastatin (Simvastatin 20 Mg Tab) 20 mg PO [facility] Stop: 03/12/20 20:59 Last Admin: 02/19/20 21:56 Dose: 20 mg Documented by: Sodium Chloride (Sodium Chloride 0.65% Na Soln 45 Ml ([place])) 1 - 2 sprays NA PRN PRN PRN Reason: Nasal Dryness/Congestion Stop: 03/12/20 18:41 Vitamin D (Cholecalciferol 1,000 Units 25 Mcg Tab) 1,000 units PO QAM CALI Stop: 03/13/20 08:59 Last Admin: 02/20/20 08:58 Dose: 1,000 units Documented by: Mental Health & Subst Abuse Tx Psychiatrist Name of Psychiatrist: Sherly Lundberg Psychiatrist's Date of Appointment with Psychiatrist: 03/01/20 Time of Appointment with Psychiatrist: 9:30 a.m. Psychiatric Appointment Comment: [place] [facility] The[facility] Name of Therapist: Sherly Rivero Therapist's Date of Therapist Appointment: 02/24/20 Time of Therapist Appointment: 3:00 p.m. Therapy Appointment Comment: [place] [facility] Monitoring Engineer Name of Monitoring Engineer: CHAPITO Castro Phone Number for Monitoring Engineer: [phone] Case Management Appointment Comment: Wed at 1 Post Discharge Appointments Primary Care Physician Name Of Family Doctor: Susie Liao Primary [facility] Time of Appointment with PCP: Please follow up as needed Provider Appointment Comment: [address] [facility] [address] Partial or Psych Rehab Name of Partial or Psych Rehab: [facility] Mobile Psych Rehab - [facility] Phone Number of Partial or Psych Rehab: [phone] Partial or Psych Rehab Appointment Comment: Thurs at 1 Other #1: Name of Aftercare Appointment: [facility] Psych Rehab Phone Number of Aftercare Appointment: [phone] Time of Aftercare Appointment: Can go Wed or Fri (1 or 2 days) Aftercare Appointment Comment: [id number] [place] [address] Contact Information Discharge Discharge Address: [address] [place], [place] [address] [id number] (1) Schizoaffective disorder Schizoaffective disorder type: unspecified Qualified Code(s): F25.9 - Schizoaffective disorder, unspecified
[2020-02-20] MEDS: TROLAMINE SALICYLATE 10% CRM 255 APPLN/85 GM TUBE EXT PRN ×3 (12:56→22:30)
[2020-02-20] MEDS: PROPRANOLOL HCL 10 MG TAB PO SCH (13:04)
[2020-02-20] MEDS: cloZAPine 100 MG TAB PO SCH (22:03)
[2020-02-20] MEDS: DIVALPROEX EXTENDED RELEASE 250 MG TABCR PO SCH (22:04)
[2020-02-20] MEDS: AMITRIPTYLINE HCL 100 MG TAB PO SCH (22:06)
[2020-02-20] MEDS: SIMVASTATIN 20 MG TAB PO SCH (22:07)
[2020-02-20] MEDS: ACETAMINOPHEN 325 MG TAB PO PRN (22:49)
[2020-02-21] MEDS: IBUPROFEN 600 MG TAB PO PRN ×2 (04:14→17:18)
[2020-02-21] MEDS: ACETAMINOPHEN 325 MG TAB PO PRN (08:04)
[2020-02-21] MEDS: CHOLECALCIFEROL 1,000 UNITS 25 MCG TAB PO SCH (09:38)
[2020-02-21] MEDS: DOCUSATE SODIUM 100 MG CAP PO SCH ×2 (09:38→21:58)
[2020-02-21] MEDS: cloZAPine 25 MG TAB PO SCH (09:38)
[2020-02-21] MEDS: lisinopriL 5 MG TAB PO SCH (09:38)
[2020-02-21] MEDS: clonazePAM 0.5 MG TAB PO PRN ×3 (09:42→21:59)
[2020-02-21] MEDS: TROLAMINE SALICYLATE 10% CRM 255 APPLN/85 GM TUBE EXT PRN ×3 (09:53→22:33)
[2020-02-21] MEDS: PROPRANOLOL HCL 10 MG TAB PO SCH (13:36)
--- NOTE | 2020-02-21 14:28 | Psychiatric Progress Note ---
Date of Service February 21, 2020 Impression / Recommendations Impression 44-year-old single male with a history of schizoaffective disorder bipolar type and multiple recent hospitalizations who presents with worsening mood, paranoia, and intrusive thoughts to harm his field case manager in the context of social isolation related to the pandemic. He has done well with clozapine and amitriptyline, and requested 1 additional dose of clonazepam as needed daily to target anxiety. We will need to coordinate with his PCM regarding ways to increase his supports and socialization outside of the hospital, as well as his PA at [facility]. Pt agreed to CRR referrals, as he is able to identify that living independently may not be helping to improve his mental health stability. Pt was accepted at [facility], with anticipated discharge on 02/22. Inpatient treatment is medically necessary due to the severity of symptoms and risk for harm of discharged home without facilitating direct transition to [facility]. (1) Homicidal ideation: 02/11 -patient reports intrusive thoughts to harm his field case manager which started yesterday, are ego dystonic, denies intent to act on them, but felt very disturbed by them. He does not have a history of violence, and feels safe here in the hospital. Continue to process and monitor. 02/12 - Pt denying intrusive, ego dystonic thoughts to harm others (field case manager specifically mentioned on admission) 02/14--recurred last pm, MNPR 02/16--reporting improved ability to utilize coping strategies - maintain MNPR today, may be able to discontinue in the next few days if patient is ability to maintain that he does not feel compelled to act on intrusive thoughts. 02/17 -Pt does endorse a few episodes of intrusive thoughts, but does not go into detail about the context - he does report coping strategies have continued to be effective 02/18 - Pt denies intrusive thoughts since yesterday 02/20 -Patient endorses fleeting intrusive thoughts but they are not intense (2) Schizoaffective disorder: 02/11 -continue home doses of clozapine and amitriptyline -Consider titration of clozapine, which patient declined today. -Fasting labs from 01/14/2020 reviewed: FLP normal, glucose 98. -Meeting with hospital social science instructor and BCM tomorrow. Patient states that he and his field case manager discussed "new housing," which he describes as the [facility]; he may benefit from return to CRR/supported group living. 02/12 - Pt now agreeable with titration of clozapine - will add 50mg morning dose, and keep 300mg dose at HS. Advised patient of possible morning sedation and encouraged him to follow-up with clinicians should this become a concern. - Pt expressed desire for referral to a CRR - field case manager working on referrals 02/14 declines increase in clozaril stating it's activating for him. 02/15--Impression: improved in that less anxious than yesterday Plan: continue MNPR today, reviewed that will need to tolerate a roommate at [facility] and are awaiting bed status to determine best transition plan. 02/16 - Continue current medication regimen - patient reports feeling improved ability to utilize coping skills. Denies intrusive thoughts so far this morning. - Pt pleased about progress with transition to [facility] - Given that he will be transitioning to a facility where he will be regularly interacting with others, we will want to be sure he is able to demonstrate stability with regard to how the patient responds to the presence of intrusive thoughts. 02/17 - 02/19 - Continue treatment plan as above - Continue process of transition to [facility], patient to have tour of [facility] today 02/19 - will discontinue patient's MNPR to ensure he is able to safely tolerate interactions with other individuals before being discharged to [facility] 02/20 - Continue current medication regimen - Has been tolerating a roommate without problems (3) Anxiety: 02/11 -encourage group attendance, work on healthy coping skills and safety plan. Increase clonazepam to 0.5 mg 3 times daily as needed anxiety. 02/12 - Continue as above 02/14--reviewed 02/16--continue as above --for the most part, patient continues to only utilize two doses of clonazepam daily - but continues to have three doses availabe each day. (4) Hypertension: 02/11 - Continue home dose of lisinopril. 02/14 reviewed (5) Hyperlipidemia: 02/11 - Continue home dose simvastatin. 02/14--reviewed Risk Factors Assessment Male: Yes : Yes Do You Have Access To A Gun?: No Health Problems: Yes Mental Health Diagnoses: Yes Substance Use Disorders: No Previous Attempt: Yes Previous Psychiatric Hospitalization: Yes Hopelessness: Yes Protective Factors Assessment : No Responsible for Young Children: No Employed: No Stable Relationships: Yes Supportive Family: Yes Good Rapport with Provider: Yes Interval History Identifying Information ROGER SCHMIDT is a 44-year-old M who currently lives in [place] alone, has a history of schizoaffective disorder bipolar type, and was admitted on 02/11/20 18:39 on a 201 voluntary commitment for intrusive thoughts to harm his field case manager. Chief Complaint "[My back pain is better]". Review of Systems Notes Constitutional: denied cardiovascular: denied Respiratory: denied GI: denied Neurologic: denied Psychiatric: denies symptoms other than stated above Remainder of 10 body systems also reviewed and denied other than noted above. Sleep Information Total Hours of Sleep: 6.5 Meal Information Percent Meal Consumed - Breakfast: 100 Percent Meal Consumed - Lunch: 50 Percent Meal Consumed - Dinner: 100 Subjective Subjective Patient was seen & assessed and interval progress reviewed with nursing and social work. Staff report the patient has been participating in group activities. Patient complained of constipation with back pain for the past 2 days but had a bowel movement this morning. Pt was seen today to assess progress since admission. Patient was sleeping when I checked him around 11 AM and he states that he usually sleeps in. He reports that his back pain has gotten much better after having a bowel movement this morning and he sleeps on the floor because it makes his back pain better. He states that he has intrusive thoughts slightly still but they have been less than before. When he was questioned what if he is going to do if this happens again after being discharged, he states that he can report this to the staff in his senior living, [facility]. He also states that he can do some coping skills and usually they work for him. He feels safe being discharged and even excited and happy going back to [facility] because he was there before. Denies delusional thoughts. Sleeping and appetite have been good. Physical Exam Psychiatric Orientation: alert, oriented x 3 and cooperative Apperance: + disheveled (appearing somewhat unkempt) and appeared stated age Lying on the mattress on the floor Eye Contact: + fair eye contact Motor Behavior: + tremor; + abnormal motor movements Speech: normal rate/rhythm/volume of speech Affect: euthymic affect, + constricted affect and mood congruent with affect Mood: no depressed mood Thought Process: goal directed thought process, clear/coherent thought process, + concrete thought process and thought association intact Thought Content: reality based without delusions; not paranoid Suicidal Thoughts: denies suicidal thoughts and denies suicidal intent Homicidal Thoughts: denies homicidal thoughts Hallucinations: no auditory hallucinations and no visual hallucinations Cognition: recent memory grossly intact, attention grossly intact and language grossly intact Estimated Intelligence: consistent with education level Insight: + fair insight Judgement: + fair judgement Vital Signs (Past 24 Hours) Last Vital Signs Temp 36.7 C 02/21/20 06:35 Pulse 80 02/21/20 06:36 Resp 16 02/21/20 06:35 BP 120/84 02/21/20 06:36 Pulse Ox 99 02/11/20 17:22 Skin no rashes, warm and dry (no bruising or rash observed to lower back, where pain is reported by pt) Results & Data ([facility]) Current Inpatient Medications Current Inpatient Medications: Current Inpatient Medications Acetaminophen (Acetaminophen 325 Mg Tab) 650 mg PO Q4H PRN PRN Reason: Headache or Minor Fever Stop: 03/12/20 18:41 Last Admin: 02/21/20 08:04 Dose: 650 mg Documented by: Al Hydrox/Mg Hydrox/Simethicone (Aluminum/Magnesium Susp 30 Ml Udc) 30 ml PO Q4H PRN PRN Reason: GI Upset Stop: 03/12/20 18:41 Amitriptyline HCl (Amitriptyline Hcl 100 Mg Tab) 100 mg PO HS CALI Stop: 03/12/20 20:59 Last Admin: 02/20/20 22:06 Dose: 100 mg Documented by: Bismuth Subsalicylate (Bismuth Subsalicylate Liqd 236 Ml) 15 ml PO PRN PRN PRN Reason: Loose Stool Stop: 03/12/20 18:41 Clonazepam (Clonazepam 0.5 Mg Tab) 0.5 mg PO TID PRN PRN Reason: Anxiety Stop: 03/13/20 13:59 Last Admin: 02/21/20 09:42 Dose: 0.5 mg Documented by: Clozapine (Clozapine 25 Mg Tab) 50 mg PO QAM CALI Stop: 03/15/20 08:59 Last Admin: 02/21/20 09:38 Dose: 50 mg Documented by: Clozapine (Clozapine 100 Mg Tab) 300 mg PO HS CALI Stop: 03/20/20 21:59 Last Admin: 02/20/20 22:03 Dose: 300 mg Documented by: Divalproex Sodium (Divalproex Extended Release 250 Mg Tabcr) 1,500 mg PO HS CALI Stop: 03/12/20 20:59 Last Admin: 02/20/20 22:04 Dose: 1,500 mg Documented by: Docusate Sodium (Docusate Sodium 100 Mg Cap) 100 mg PO BID CALI Stop: 03/12/20 20:59 Last Admin: 02/21/20 09:38 Dose: 100 mg Documented by: Hydroxyzine HCl (Hydroxyzine Hcl 25 Mg Tab) 50 mg PO HSZ PRN PRN Reason: Insomnia Stop: 03/12/20 18:41 Hydroxyzine HCl (Hydroxyzine Hcl 25 Mg Tab) 25 mg PO Q4H PRN PRN Reason: Anxiety Stop: 03/12/20 18:41 Ibuprofen (Ibuprofen 600 Mg Tab) 600 mg PO Q6H PRN PRN Reason: Pain Stop: 03/20/20 09:29 Last Admin: 02/21/20 04:14 Dose: 600 mg Documented by: Lisinopril (Lisinopril 5 Mg Tab) 5 mg PO QAM CALI Stop: 03/13/20 08:59 Last Admin: 02/21/20 09:38 Dose: 5 mg Documented by: Magnesium Hydroxide (Magnesium Hydroxide Susp 30 Ml Udc) 30 ml PO DAILY PRN PRN Reason: Constipation Stop: 03/12/20 18:41 Last Admin: 02/20/20 05:45 Dose: 30 ml Documented by: Polyethylene Glycol (Polyethylene (Miralax) 17 Gm Pack) 17 gm PO DAILY PRN PRN Reason: Constipation Stop: 03/20/20 08:52 Last Admin: 02/20/20 08:56 Dose: 17 gm Documented by: Propranolol HCl (Propranolol Hcl 10 Mg Tab) 10 mg PO 1200 CALI Stop: 03/13/20 11:59 Last Admin: 02/21/20 13:36 Dose: 10 mg Documented by: Simvastatin (Simvastatin 20 Mg Tab) 20 mg PO HS [facility] Stop: 03/12/20 20:59 Last Admin: 02/20/20 22:07 Dose: 20 mg Documented by: Sodium Chloride (Sodium Chloride 0.65% Na Soln 45 Ml ([place])) 1 - 2 sprays NA PRN PRN PRN Reason: Nasal Dryness/Congestion Stop: 03/12/20 18:41 Trolamine Salicylate (Trolamine Salicylate 10% Crm 255 Appln/85 Gm Tube) 1 appln EXT QID PRN PRN Reason: Pain Stop: 03/21/20 09:31 Last Admin: 02/21/20 09:53 Dose: 1 appln Documented by: Vitamin D (Cholecalciferol 1,000 Units 25 Mcg Tab) 1,000 units PO QAM CALI Stop: 03/13/20 08:59 Last Admin: 02/21/20 09:38 Dose: 1,000 units Documented by: Mental Health & Subst Abuse Tx Psychiatrist Name of Psychiatrist: Sherly Lundberg Psychiatrist's Date of Appointment with Psychiatrist: 03/01/20 Time of Appointment with Psychiatrist: 9:30 a.m. Psychiatric Appointment Comment: [facility] Therapist Name of Therapist: Sherly Rivero Therapist's Date of Therapist Appointment: 02/24/20 Time of Therapist Appointment: 3:00 p.m. Therapy Appointment Comment: [facility] Agricultural Engineer Name of Agricultural Engineer: CHAPITO Castro Phone Number for Agricultural Engineer: [phone] Case Management Appointment Comment: Wed at 1 Post Discharge Appointments Primary Care Physician Name Of Family Doctor: Susie Liao Primary [facility] Time of Appointment with PCP: Please follow up as needed Provider Appointment Comment: [address] [place] [address] [place] [address] Partial or Psych Rehab Name of Partial or Psych Rehab: [facility] Mobile Psych Rehab - [facility] Phone Number of Partial or Psych Rehab: [phone] Partial or Psych Rehab Appointment Comment: Thurs at 1 Other #1: Name of Aftercare Appointment: [facility] Psych Rehab Phone Number of Aftercare Appointment: [phone] Time of Aftercare Appointment: Wed or Fri, Aftercare Appointment Comment: Mat requests call Mon to confirm. [id number] [place], [place] Contact Information Discharge Discharge Address: [address] [facility], [address] [place] [address] (1) Schizoaffective disorder Schizoaffective disorder type: unspecified Qualified Code(s): F25.9 - Schizoaffective disorder, unspecified
[2020-02-21] MEDS: cloZAPine 100 MG TAB PO SCH (21:58)
[2020-02-21] MEDS: DIVALPROEX EXTENDED RELEASE 250 MG TABCR PO SCH (21:59)
[2020-02-21] MEDS: AMITRIPTYLINE HCL 100 MG TAB PO SCH (21:59)
[2020-02-21] MEDS: SIMVASTATIN 20 MG TAB PO SCH (21:59)
[2020-02-22] MEDS: IBUPROFEN 600 MG TAB PO PRN (05:18)
[2020-02-22] MEDS: lisinopriL 5 MG TAB PO SCH (09:04)
[2020-02-22] MEDS: cloZAPine 25 MG TAB PO SCH (09:04)
[2020-02-22] MEDS: clonazePAM 0.5 MG TAB PO PRN ×2 (09:04→22:07)
[2020-02-22] MEDS: DOCUSATE SODIUM 100 MG CAP PO SCH ×2 (09:04→22:07)
[2020-02-22] MEDS: CHOLECALCIFEROL 1,000 UNITS 25 MCG TAB PO SCH (09:04)
--- NOTE | 2020-02-22 10:22 | Psychiatric Progress Note ---
Date of Service February 22, 2020 Impression / Recommendations Impression 44-year-old single male with a history of schizoaffective disorder bipolar type and multiple recent hospitalizations who presents with worsening mood, paranoia, and intrusive thoughts to harm his supportive employment case manager in the context of social isolation related to the pandemic. He has done well with clozapine and amitriptyline, and requested 1 additional dose of clonazepam as needed daily to target anxiety. We will need to coordinate with his PCM regarding ways to increase his supports and socialization outside of the hospital, as well as his PA at [facility]. Pt agreed to CRR referrals, as he is able to identify that living independently may not be helping to improve his mental health stability. Pt was accepted at [facility], with anticipated discharge on 02/22. Inpatient treatment is medically necessary due to the severity of symptoms and risk for harm of discharged home without facilitating direct transition to [facility]. (1) Homicidal ideation: 02/11 -patient reports intrusive thoughts to harm his supportive employment case manager which started yesterday, are ego dystonic, denies intent to act on them, but felt very disturbed by them. He does not have a history of violence, and feels safe here in the hospital. Continue to process and monitor. 02/12 - Pt denying intrusive, ego dystonic thoughts to harm others (supportive employment case manager specifically mentioned on admission) 02/14--recurred last pm, MNPR 02/16--reporting improved ability to utilize coping strategies - maintain MNPR today, may be able to discontinue in the next few days if patient is ability to maintain that he does not feel compelled to act on intrusive thoughts. 02/17 -Pt does endorse a few episodes of intrusive thoughts, but does not go into detail about the context - he does report coping strategies have continued to be effective 02/18 - Pt denies intrusive thoughts since yesterday 02/20 -Patient endorses fleeting intrusive thoughts but they are not intense. 02/21 -Patient denies intrusive thoughts since yesterday. (2) Schizoaffective disorder: 02/11 -continue home doses of clozapine and amitriptyline -Consider titration of clozapine, which patient declined today. -Fasting labs from 01/14/2020 reviewed: FLP normal, glucose 98. -Meeting with hospital social sciences chair and BCM tomorrow. Patient states that he and his supportive employment case manager discussed "new housing," which he describes as the [facility]; he may benefit from return to CRR/supported group living. 02/12 - Pt now agreeable with titration of clozapine - will add 50mg morning dose, and keep 300mg dose at HS. Advised patient of possible morning sedation and encouraged him to follow-up with clinicians should this become a concern. - Pt expressed desire for referral to a CRR - supportive employment case manager working on referrals 02/14 declines increase in clozaril stating it's activating for him. 02/15--Impression: improved in that less anxious than yesterday Plan: continue MNPR today, reviewed that will need to tolerate a roommate at [facility] and are awaiting bed status to determine best transition plan. 02/16 - Continue current medication regimen - patient reports feeling improved ability to utilize coping skills. Denies intrusive thoughts so far this morning. - Pt pleased about progress with transition to [facility] - Given that he will be transitioning to a facility where he will be regularly interacting with others, we will want to be sure he is able to demonstrate stability with regard to how the patient responds to the presence of intrusive thoughts. 02/17 - 02/19 - Continue treatment plan as above - Continue process of transition to [facility], patient to have tour of [facility] today 02/19 - will discontinue patient's MNPR to ensure he is able to safely tolerate interactions with other individuals before being discharged to [facility] 02/20 - Continue current medication regimen - Has been tolerating a roommate without problems 02/21 - Continue current medication regimen. (3) Anxiety: 02/11 -encourage group attendance, work on healthy coping skills and safety plan. Increase clonazepam to 0.5 mg 3 times daily as needed anxiety. 02/12 - Continue as above 02/14--reviewed 02/16--continue as above --for the most part, patient continues to only utilize two doses of clonazepam daily - but continues to have three doses availabe each day. (4) Hypertension: 02/11 - Continue home dose of lisinopril. 02/14 reviewed (5) Hyperlipidemia: 02/11 - Continue home dose simvastatin. 02/14--reviewed Risk Factors Assessment Male: Yes : Yes Do You Have Access To A Gun?: No Health Problems: Yes Mental Health Diagnoses: Yes Substance Use Disorders: No Previous Attempt: Yes Previous Psychiatric Hospitalization: Yes Hopelessness: Yes Protective Factors Assessment : No Responsible for Young Children: No Employed: No Stable Relationships: Yes Supportive Family: Yes Good Rapport with Provider: Yes Interval History Identifying Information ROGER SCHMIDT is a 44-year-old M who currently lives in [place] alone, has a history of schizoaffective disorder bipolar type, and was admitted on 02/11/20 18:39 on a 201 voluntary commitment for intrusive thoughts to harm his supportive employment case manager. Chief Complaint "[I am ready to go]". Review of Systems Notes Constitutional: denied cardiovascular: denied Respiratory: denied GI: denied Neurologic: denied Psychiatric: denies symptoms other than stated above Remainder of 10 body systems also reviewed and denied other than noted above. Sleep Information Total Hours of Sleep: 6.5 Meal Information Percent Meal Consumed - Breakfast: 100 Percent Meal Consumed - Lunch: 50 Percent Meal Consumed - Dinner: 100 Subjective Subjective Patient was seen & assessed and interval progress reviewed with nursing and social work. Staff report the patient has been participating in group activities and has been pleasant. Patient rated his mood to 10 out of 10 yesterday. Pt was seen today to assess progress since admission. Patient reports that he has been feeling really good and that he is ready to go at this point. He still has back pain slightly but his back pain has improved significantly. He shows excitement regarding expected discharge tomorrow and is looking forward to staying in [facility] even though it is more expensive than living by himself. 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 He also reviewed his safety plan after discharge and he feels that he has been controlling his impulses really well without intrusive thoughts. He does not have any concerns or issues of current medication regimen. He has been sleeping well and appetite has been good. Physical Exam Psychiatric Orientation: alert, oriented x 3 and cooperative Apperance: appropriately dressed, appropriately groomed, + disheveled (appearing somewhat unkempt) and appeared stated age Eye Contact: good eye contact Motor Behavior: steady gait and station and + tremor; + abnormal motor movements Speech: normal rate/rhythm/volume of speech Affect: euthymic affect and mood congruent with affect Mood: no depressed mood and no anxious mood (reportedly related to back pain, but states "I'm coping") Thought Process: goal directed thought process, linear/logical thought process, clear/coherent thought process, + concrete thought process and thought association intact Thought Content: reality based without delusions; not paranoid, no cognitive distortions, no hopelessness and no worthlessness Suicidal Thoughts: denies suicidal thoughts and denies suicidal intent Homicidal Thoughts: denies homicidal thoughts Hallucinations: no auditory hallucinations and no visual hallucinations Cognition: recent memory grossly intact, remote memory grossly intact, attention grossly intact and language grossly intact Estimated Intelligence: consistent with education level Insight: + fair insight Judgement: + fair judgement Vital Signs (Past 24 Hours) Last Vital Signs Temp 36.8 C 02/22/20 06:34 Pulse 87 02/22/20 06:34 Resp 16 02/22/20 06:34 BP 119/83 02/22/20 06:34 Pulse Ox 99 02/11/20 17:22 Results & Data ([facility]) Current Inpatient Medications Current Inpatient Medications: Current Inpatient Medications Acetaminophen (Acetaminophen 325 Mg Tab) 650 mg PO Q4H PRN PRN Reason: Headache or Minor Fever Stop: 03/12/20 18:41 Last Admin: 02/21/20 08:04 Dose: 650 mg Documented by: Al Hydrox/Mg Hydrox/Simethicone (Aluminum/Magnesium Susp 30 Ml Udc) 30 ml PO Q4H PRN PRN Reason: GI Upset Stop: 03/12/20 18:41 Amitriptyline HCl (Amitriptyline Hcl 100 Mg Tab) 100 mg PO HS [facility] Stop: 03/12/20 20:59 Last Admin: 02/21/20 21:59 Dose: 100 mg Documented by: Bismuth Subsalicylate (Bismuth Subsalicylate Liqd 236 Ml) 15 ml PO PRN PRN PRN Reason: Loose Stool Stop: 03/12/20 18:41 Clonazepam (Clonazepam 0.5 Mg Tab) 0.5 mg PO TID PRN PRN Reason: Anxiety Stop: 03/13/20 13:59 Last Admin: 02/22/20 09:04 Dose: 0.5 mg Documented by: Clozapine (Clozapine 25 Mg Tab) 50 mg PO QAM CALI Stop: 03/15/20 08:59 Last Admin: 02/22/20 09:04 Dose: 50 mg Documented by: Clozapine (Clozapine 100 Mg Tab) 300 mg PO HS [facility] Stop: 03/20/20 21:59 Last Admin: 02/21/20 21:58 Dose: 300 mg Documented by: Divalproex Sodium (Divalproex Extended Release 250 Mg Tabcr) 1,500 mg PO HS CALI Stop: 03/12/20 20:59 Last Admin: 02/21/20 21:59 Dose: 1,500 mg Documented by: Docusate Sodium (Docusate Sodium 100 Mg Cap) 100 mg PO BID CALI Stop: 03/12/20 20:59 Last Admin: 02/22/20 09:04 Dose: 100 mg Documented by: Hydroxyzine HCl (Hydroxyzine Hcl 25 Mg Tab) 50 mg PO HSZ PRN PRN Reason: Insomnia Stop: 03/12/20 18:41 Hydroxyzine HCl (Hydroxyzine Hcl 25 Mg Tab) 25 mg PO Q4H PRN PRN Reason: Anxiety Stop: 03/12/20 18:41 Ibuprofen (Ibuprofen 600 Mg Tab) 600 mg PO Q6H PRN PRN Reason: Pain Stop: 03/20/20 09:29 Last Admin: 02/22/20 05:18 Dose: 600 mg Documented by: Lisinopril (Lisinopril 5 Mg Tab) 5 mg PO QAM CALI Stop: 03/13/20 08:59 Last Admin: 02/22/20 09:04 Dose: 5 mg Documented by: Magnesium Hydroxide (Magnesium Hydroxide Susp 30 Ml Udc) 30 ml PO DAILY PRN PRN Reason: Constipation Stop: 03/12/20 18:41 Last Admin: 02/20/20 05:45 Dose: 30 ml Documented by: Polyethylene Glycol (Polyethylene (Miralax) 17 Gm Pack) 17 gm PO DAILY PRN PRN Reason: Constipation Stop: 03/20/20 08:52 Last Admin: 02/20/20 08:56 Dose: 17 gm Documented by: Propranolol HCl (Propranolol Hcl 10 Mg Tab) 10 mg PO 1200 CALI Stop: 03/13/20 11:59 Last Admin: 02/21/20 13:36 Dose: 10 mg Documented by: Simvastatin (Simvastatin 20 Mg Tab) 20 mg PO HS CALI Stop: 03/12/20 20:59 Last Admin: 02/21/20 21:59 Dose: 20 mg Documented by: Sodium Chloride (Sodium Chloride 0.65% Na Soln 45 Ml (Caroline)) 1 - 2 sprays NA PRN PRN PRN Reason: Nasal Dryness/Congestion Stop: 03/12/20 18:41 Trolamine Salicylate (Trolamine Salicylate 10% Crm 255 Appln/85 Gm Tube) 1 appln EXT QID PRN PRN Reason: Pain Stop: 03/21/20 09:31 Last Admin: 02/21/20 22:33 Dose: 1 appln Documented by: Vitamin D (Cholecalciferol 1,000 Units 25 Mcg Tab) 1,000 units PO QAM CALI Stop: 03/13/20 08:59 Last Admin: 02/22/20 09:04 Dose: 1,000 units Documented by: Mental Health & Subst Abuse Tx Psychiatrist Name of Psychiatrist: Sherly Lundberg Psychiatrist's Date of Appointment with Psychiatrist: 03/01/20 Time of Appointment with Psychiatrist: 9:30 a.m. Psychiatric Appointment Comment: [facility] Therapist Name of Therapist: Sherly Rivero Therapist's Date of Therapist Appointment: 02/24/20 Time of Therapist Appointment: 3:00 p.m. Therapy Appointment Comment: [facility] Referral Specialist Name of Referral Specialist: CHAPITO Castro Phone Number for Referral Specialist: [phone] Case Management Appointment Comment: Wed at 1 Post Discharge Appointments Primary Care Physician Name Of Family Doctor: Susie Liao Primary [facility] Time of Appointment with PCP: Please follow up as needed Provider Appointment Comment: [address] [facility] [place] [id number] Partial or Psych Rehab [place] of [place]hab[place] [facility] [place] [place] [facility] Phone Number of Partial or Psych Rehab: [phone] Partial or Psych Rehab Appointment Comment: Thurs at 1 Other #1: Name of Aftercare Appointment[place] [facility] [place] Phone Number of Aftercare Appointment: [phone] Time of Aftercare Appointment: Wed or Fri, Aftercare Appointment Comment: Mat requests call Mon to confirm. [id number]ons [place], [place] Contact Information Discharge Discharge Address: [address] [facility], [address] [place] [address] (1) Schizoaffective disorder Schizoaffective disorder type: unspecified Qualified Code(s): F25.9 - Schizoaffective disorder, unspecified
[2020-02-22] MEDS: PROPRANOLOL HCL 10 MG TAB PO SCH (12:53)
[2020-02-22] MEDS: TROLAMINE SALICYLATE 10% CRM 255 APPLN/85 GM TUBE EXT PRN (12:56)
[2020-02-22] MEDS: ACETAMINOPHEN 325 MG TAB PO PRN (19:23)
[2020-02-22] MEDS: cloZAPine 100 MG TAB PO SCH (22:07)
[2020-02-22] MEDS: DIVALPROEX EXTENDED RELEASE 250 MG TABCR PO SCH (22:08)
[2020-02-22] MEDS: SIMVASTATIN 20 MG TAB PO SCH (22:08)
[2020-02-22] MEDS: AMITRIPTYLINE HCL 100 MG TAB PO SCH (22:08)
[2020-02-23] MEDS: DOCUSATE SODIUM 100 MG CAP PO SCH (08:53)
[2020-02-23] MEDS: cloZAPine 25 MG TAB PO SCH (08:53)
[2020-02-23] MEDS: lisinopriL 5 MG TAB PO SCH (08:53)
[2020-02-23] MEDS: CHOLECALCIFEROL 1,000 UNITS 25 MCG TAB PO SCH (08:53)
[2020-02-23] MEDS: clonazePAM 0.5 MG TAB PO PRN (08:54)
--- NOTE | 2020-02-23 09:46 | Discharge Summary ---
Date of Service February 23, 2020 History of Present Illness Patient is well-known to me from multiple hospitalizations, and this is his third hospitalization in the past month. He was discharged 01/26/2020 after a 5- day hospitalization for paranoia and anxiety, during which clonazepam was increased and amitriptyline, clozapine, and Depakote were continued. He had a meeting with his BCM in the unit social services technician, focused on improving communication and use of his coping skills and outpatient supports. He pr esented to the ER on 02/09/2010 reporting worsening psychosis, said he felt like he was "tripping," talking fast, and associated his symptoms with seeing a hot car after a meeting with his therapist. He was given a dose of Ativan and discharged home. He returned to the ER the following day, 02/11/2020, along with his showcase trimmer, reported worsening paranoia and anxiety as well as thoughts to harm others. He described intrusive thoughts to harm his showcase trimmer, which were very distressing to him, and did not feel safe outside of the hospital. Admission labs: RBC 4.53, ANC 4.17, glucose 126, TSH 1.460, UA with 1+ blood and 5-10 RBCs, UDS and COVID tests negative. He signed in voluntarily for treatment. On my assessment today, he reports he did "fairly well" for about 2 weeks after discharge earlier this month, but started feeling worse after his therapy appointment on Sunday, was more anxious, paranoid and felt unable to function. States he knew he wasn't doing well because "I wasn't cooking for myself even though I had food, and was feeling really trippy," which he describes as thinking "psychobabble." He went to the [facility] and asked to talk about quantum physics, and then they sent him to the ER, where he was evaluated and discharged. He was then meeting with his BCM yesterday and had intrusive thoughts to harm him, and came to the hospital. They had made an emergency appointment with his PA at [facility] for today, as patient wants to have a prn medication for "rapid thinking, pacing, calm me down." He has been taking clonazepam bid and it is helpful, but feels he needs something more. He denies side effects. Sleep has been good, has been getting out of his house daily, going to bookstores or [employer]. He denies SI, hallucinations, changes in appetite or weight. His primary stressor is COVID, "it wrecked most of my activities," as psych rehab is not running, some of his friends have not been in touch with him. Identifies his father in [place] as a good support. He is also considering "a different living situation," and has started discussing this with his BCM, saying he wonders about "[facility]." He is frustrated and upset with himself "because I had to be here three times in the past 2 months." He feels safe here in the hospital, and denies thoughts of harming anyone here. Physical Exam Psychiatric Orientation: alert and cooperative Apperance: appropriately dressed, appropriately groomed and appeared stated age Eye Contact: good eye contact Motor Behavior: steady gait and station and no abnormal motor movements Speech: normal rate/rhythm/volume of speech Affect: euthymic affect and mood congruent with affect "Good." Thought Process: goal directed thought process and linear/logical thought process Thought Content: reality based without delusions Suicidal Thoughts: denies suicidal thoughts Homicidal Thoughts: denies homicidal thoughts Hallucinations: no auditory hallucinations and no visual hallucinations Cognition: recent memory grossly intact, attention grossly intact and language grossly intact Insight: good insight Judgement: good judgement Vital Signs (Past 24 Hours) Last Vital Signs Temp 36.7 C 02/23/20 06:40 Pulse 84 02/23/20 06:41 Resp 16 02/23/20 06:40 BP 98/65 L 02/23/20 06:41 Pulse Ox 99 02/11/20 17:22 Principal Diagnosis Schizoaffective disorder, bipolar type Anxiety NOS (symptoms of MONICA, OCD, and panic) Psychiatric Data Faustino was hospitalized for 12 days. Clozapine was increased by 50 mg daily to target paranoia and intrusive thoughts to harm others, and clonazepam as needed increased from twice daily to 3 times daily to target anxiety. He tolerated these medication adjustments well, and intrusive thoughts and anxiety improved. Although he reported ego-dystonic intrusive thoughts to harm others at times, he consistently denied any desire or intent to act on these, and always came to staff to process his thoughts, with no episodes of threatening behavior or aggression on the unit. As his hospitalization progressed, his intrusive thoughts lessened in intensity and frequency, and towards the end of hospitalization he was reporting brief intrusive thoughts to get naked and run through the unit, but again denied any intent to act on these. He was able to identify effective coping skills, and remained in good behavioral control. He attended and participated in groups and therapy throughout his stay, was appropriate in his interactions with staff and peers, and completed his discharge safety plan. He had multiple meetings with his outpatient BCM, and expressed a desire to transition from living alone in an apartment to some type of supportive/group living. One of his primary stressors during recent months is that he lives alone and has limited socialization and supports, in large part due to the pandemic and inability to socialize in the ways that he used to. He applied to and was accepted at [facility], had a virtual tour with the assistance of his showcase trimmer, and discharge was coordinated with the facility so that they could accept him on release from the hospital. He was noted to be eating and sleeping well, was compliant with medications and actively engaged in treatment throughout his stay. Day of Discharge Assessment Patient reports mood is "good," has improved and is stable, and denies SI, HI, and AVH. He continues to have intrusive thoughts at times, about once a day, lasting moments, less intense and less distressing. Over the past few days they have been about "streaking," but denies intent to act on these and states it helps to talk about it. He denies side effects to medications, and feels ready to leave. He is looking forward to moving to the [facility]. Reviewed his new medications, prescriptions issued for clonazepam and clozapine. Transition of Care Transition Of Care Record: was reviewed with the patient Advance Directives Advance Directives Information Provided: Yes Advance Directives: No Mental Health Advance Directive: No Advance Directives on File: No Living Will: No Power of International Logistics Analyst: No Advance Directives Reason:: Declines as Mental Health Visit. Risk Factors Assessment Risk factors were mitigated by admission to the inpatient unit, use of medications to target anxiety and psychotic symptoms, involving him in groups and therapy, coordination with outpatient clinicians and involvement of his blended showcase trimmer, assisting with transition to supportive/supervised [facility], working on healthy coping skills and a discharge safety plan. Patient has demonstrated improvement in mood mood and psychotic symptoms and intrusive thoughts, is consistently denying thoughts of harming others, has not been aggressive or threatening, and has consistently denied thoughts of harming himself while here. He is performing ADLs independently, eating and sleeping well, and taking medications as prescribed. He is requesting discharge, and is he is no longer at acute risk of harm to himself or others, can be managed as an outpatient at this time. Of note, his intrusive thoughts to harm others can be best characterized as obsessive/intrusive thoughts, which are ego dystonic, have an OCD quality, and are not occurring in the context of ASPD/sociopathy. The patient does not have a history of violence towards others, and has consistently denied any desire or intent to act on these thoughts. He typically seeks help when he has intrusive thoughts. Male: Yes : Yes Do You Have Access To A Gun?: No Health Problems: Yes Mental Health Diagnoses: Yes Substance Use Disorders: No Previous Attempt: Yes Family History of Suicide: No Previous Psychiatric Hospitalization: Yes Hopelessness: Yes Smoker: No Protective Factors Assessment : No Responsible for Young Children: No Employed: No Stable Relationships: Yes Supportive Family: Yes Good Rapport with Provider: Yes Tobacco Cessation at Discharge Tobacco Cessation Medication Prescribed at Discharge: Not Applicable/Non-Smoker Total Time Total Time Spent: Greater Than 30 Minutes Total Time Includes: Examination of the patient, Discharge Planning and Medication Reconciliation Discharge Data Lab Results 02/11/20 02/11/20 02/11/20 14:57 14:57 14:59 WBC 7.47 RBC 4.53 L Hgb 14.6 Hct 42.0 MCV 92.7 MCH 32.2 MCHC 34.8 RDW Std Deviation 42.4 RDW Coeff of Levy 12.5 Plt Count 271 MPV 9.4 Immature Gran % (Auto) 0.7 Neut % (Auto) 55.9 Lymph % (Auto) 27.8 Bracken % (Auto) 15.5 Eos % (Auto) 0.0 Baso % (Auto) 0.1 Neut # (Auto) 4.17 Lymph # (Auto) 2.08 Bracken # (Auto) 1.16 H Eos # (Auto) 0.00 Baso # (Auto) 0.01 Immature Gran # (Auto) 0.05 H Sodium Potassium Chloride Carbon Dioxide Anion Gap BUN Creatinine Est Cr Clr Drug Dosing Est GFR ( Amer) Est GFR (Non-Af Amer) BUN/Creatinine Ratio Glucose Calcium Total Bilirubin AST ALT Alkaline Phosphatase Total Protein Albumin Globulin Albumin/Globulin Ratio TSH Urine Color Yellow Urine Appearance Clear Urine pH 7.0 Ur Specific [place] 1.012 Urine Protein Negative Urine Glucose (UA) Negative Urine Ketones Negative Urine Blood 1+ H Urine Nitrite Negative Urine Bilirubin Negative Urine Urobilinogen Negative Ur Leukocyte Esterase Negative Urine WBC (Auto) 0 Urine RBC (Auto) 5-10 H U Hyaline Cast (Auto) 0 U Epithel Cells (Auto) 0-5 Urine Bacteria (Auto) Negative Salicylates Urine Opiates Screen Neg Ur Methadone, Qual Neg Acetaminophen Urine Barbiturates Neg Valproic Acid Ur Phencyclidine (PCP) Neg U Amphetamin/Meth Scrn Neg MDMA (Ecstasy) Screen Neg U Benzodiazepines Scrn Neg Ur Cocaine Metabolite Neg U Marijuana (THC) Screen Neg Ethyl Alcohol mg/dL COVID-19 Eval Order SARS-CoV-2 RNA (RT-PCR) SARS-CoV-2, RNA, NAAT 02/11/20 02/11/20 02/11/20 14:59 14:59 14:59 WBC RBC Hgb Hct MCV MCH MCHC RDW Std Deviation RDW Coeff of Levy Plt Count MPV Immature Gran % (Auto) Neut % (Auto) Lymph % (Auto) Bracken % (Auto) Eos % (Auto) Baso % (Auto) Neut # (Auto) Lymph # (Auto) Bracken # (Auto) Eos # (Auto) Baso # (Auto) Immature Gran # (Auto) Sodium 136 Potassium 4.2 Chloride 103 Carbon Dioxide 28 Anion Gap 6.0 BUN 8 Creatinine 1.16 Est Cr Clr Drug Dosing 90.6 Est GFR ( Amer) 88.9 Est GFR (Non-Af Amer) 76.7 BUN/Creatinine Ratio 7.2 L Glucose 126 H Calcium 9.5 Total Bilirubin 0.4 AST 13 L ALT 33 Alkaline Phosphatase 62 Total Protein 7.9 Albumin 3.9 Globulin 4.0 Albumin/Globulin Ratio 1.0 TSH 1.460 Urine Color Urine Appearance Urine pH Ur Specific [place] Urine Protein Urine Glucose (UA) Urine Ketones Urine Blood Urine Nitrite Urine Bilirubin Urine Urobilinogen Ur Leukocyte Esterase Urine WBC (Auto) Urine RBC (Auto) U Hyaline Cast (Auto) U Epithel Cells (Auto) Urine Bacteria (Auto) Salicylates < 1.7 L Urine Opiates Screen Ur Methadone, Qual Acetaminophen < 2 L Urine Barbiturates Valproic Acid 83 Ur Phencyclidine (PCP) U Amphetamin/Meth Scrn MDMA (Ecstasy) Screen U Benzodiazepines Scrn Ur Cocaine Metabolite U Marijuana (THC) Screen Ethyl Alcohol mg/dL < 3.0 COVID-19 Eval Order SARS-CoV-2 RNA (RT-PCR) SARS-CoV-2, RNA, NAAT 02/11/20 02/11/20 02/11/20 17:05 17:05 17:26 WBC RBC Hgb Hct MCV MCH MCHC RDW Std Deviation RDW Coeff of Levy Plt Count MPV Immature Gran % (Auto) Neut % (Auto) Lymph % (Auto) Bracken % (Auto) Eos % (Auto) Baso % (Auto) Neut # (Auto) Lymph # (Auto) Bracken # (Auto) Eos # (Auto) Baso # (Auto) Immature Gran # (Auto) Sodium Potassium Chloride Carbon Dioxide Anion Gap BUN Creatinine Est Cr Clr Drug Dosing Est GFR ( Amer) Est GFR (Non-Af Amer) BUN/Creatinine Ratio Glucose Calcium Total Bilirubin AST ALT Alkaline Phosphatase Total Protein Albumin Globulin Albumin/Globulin Ratio TSH Urine Color Urine Appearance Urine pH Ur Specific [place] Urine Protein Urine Glucose (UA) Urine Ketones Urine Blood Urine Nitrite Urine Bilirubin Urine Urobilinogen Ur Leukocyte Esterase Urine WBC (Auto) Urine RBC (Auto) U Hyaline Cast (Auto) U Epithel Cells (Auto) Urine Bacteria (Auto) Salicylates Urine Opiates Screen Ur Methadone, Qual Acetaminophen Urine Barbiturates Valproic Acid Ur Phencyclidine (PCP) U Amphetamin/Meth Scrn MDMA (Ecstasy) Screen U Benzodiazepines Scrn Ur Cocaine Metabolite U Marijuana (THC) Screen Ethyl Alcohol mg/dL COVID-19 Eval Order Covid19 Sent [facility] SARS-CoV-2 RNA (RT-PCR) Cancelled SARS-CoV-2, RNA, NAAT NEGATIVE 02/18/20 06:35 WBC 7.99 RBC 4.18 L Hgb 13.1 L Hct 38.9 L MCV 93.1 MCH 31.3 MCHC 33.7 RDW Std Deviation 42.6 RDW Coeff of Levy 12.6 Plt Count 229 MPV 9.2 Immature Gran % (Auto) 1.6 Neut % (Auto) 45.0 Lymph % (Auto) 41.1 Bracken % (Auto) 12.0 Eos % (Auto) 0.0 Baso % (Auto) 0.3 Neut # (Auto) 3.60 Lymph # (Auto) 3.28 Bracken # (Auto) 0.96 H Eos # (Auto) 0.00 Baso # (Auto) 0.02 Immature Gran # (Auto) 0.13 H Sodium Potassium Chloride Carbon Dioxide Anion Gap BUN Creatinine Est Cr Clr Drug Dosing Est GFR ( Amer) Est GFR (Non-Af Amer) BUN/Creatinine Ratio Glucose Calcium Total Bilirubin AST ALT Alkaline Phosphatase Total Protein Albumin Globulin Albumin/Globulin Ratio TSH Urine Color Urine Appearance Urine pH Ur Specific [place] Urine Protein Urine Glucose (UA) Urine Ketones Urine Blood Urine Nitrite Urine Bilirubin Urine Urobilinogen Ur Leukocyte Esterase Urine WBC (Auto) Urine RBC (Auto) U Hyaline Cast (Auto) U Epithel Cells (Auto) Urine Bacteria (Auto) Salicylates Urine Opiates Screen Ur Methadone, Qual Acetaminophen Urine Barbiturates Valproic Acid Ur Phencyclidine (PCP) U Amphetamin/Meth Scrn MDMA (Ecstasy) Screen U Benzodiazepines Scrn Ur Cocaine Metabolite U Marijuana (THC) Screen Ethyl Alcohol mg/dL COVID-19 Eval Order SARS-CoV-2 RNA (RT-PCR) SARS-CoV-2, RNA, NAAT Hospital Course (1) Homicidal ideation: 02/11 -patient reports intrusive thoughts to harm his showcase trimmer which started yesterday, are ego dystonic, denies intent to act on them, but felt very disturbed by them. He does not have a history of violence, and feels safe here in the hospital. Continue to process and monitor. 02/12 - Pt denying intrusive, ego dystonic thoughts to harm others (showcase trimmer specifically mentioned on admission) 02/14--recurred last pm, MNPR 02/16--reporting improved ability to utilize coping strategies - maintain MNPR today, may be able to discontinue in the next few days if patient is ability to maintain that he does not feel compelled to act on intrusive thoughts. 02/17 -Pt does endorse a few episodes of intrusive thoughts, but does not go into detail about the context - he does report coping strategies have continued to be effective 02/18 - Pt denies intrusive thoughts since yesterday 02/20 -Patient endorses fleeting intrusive thoughts but they are not intense. 02/21 -Patient denies intrusive thoughts since yesterday. 02/22 -No intrusive thoughts to harm others in approximately a week. Continues to have some intrusive thoughts about disrobing and "streaking," but denies any intent or desire to act on these, and is able to identify effective coping strategies. Overall, intrusive thoughts are less intense, frequent, and distressing than on admission, and patient feels able to manage them outside of the hospital. I think these can be best characterized as an anxiety/OCD symptom, and can get worse when the patient is psychotic or paranoid. There is no evidence of antisocial personality disorder or sociopathy, and overall the patient is at low risk for harm to others. (2) Schizoaffective disorder: 02/11 -continue home doses of clozapine and amitriptyline -Consider titration of clozapine, which patient declined today. -Fasting labs from 01/14/2020 reviewed: FLP normal, glucose 98. -Meeting with hospital social services technician and BCM tomorrow. Patient states that he and his showcase trimmer discussed "new housing," which he describes as the [facility]; he may benefit from return to [facility]/supported group living. 02/12 - Pt now agreeable with titration of clozapine - will add 50mg morning dose, and keep 300mg dose at HS. Advised patient of possible morning sedation and encouraged him to follow-up with clinicians should this become a concern. - Pt expressed desire for referral to a CR[facility] - showcase trimmer working on referrals 02/14 declines increase in clozaril stating it's activating for him. 02/15--Impression: improved in that less anxious than yesterday Plan: continue MNPR today, reviewed that will need to tolerate a roommate at [facility] and are awaiting bed status to determine best transition plan. 02/16 - Continue current medication regimen - patient reports feeling improved ability to utilize coping skills. Denies intrusive thoughts so far this morning. - Pt pleased about progress with transition to [facility] - Given that he will be transitioning to a facility where he will be regularly interacting with others, we will want to be sure he is able to demonstrate stability with regard to how the patient responds to the presence of intrusive thoughts. 02/17 - 02/19 - Continue treatment plan as above - Continue process of transition to [facility], patient to have tour of [facility] today 02/19 - will discontinue patient's MNPR to ensure he is able to safely tolerate interactions with other individuals before being discharged to [facility] 02/20 - Continue current medication regimen - Has been tolerating a roommate without problems 02/21 - Continue current medication regimen. 02/22 -prescriptions issued for clozapine 50 mg dose and clonazepam 0.5 mg 3 times daily as needed, dispense #21. He will follow-up with KRISTYN Cruz, at [facility] on 03/01/2020. -BCEsther Titi Gloria is picking patient up and taking him to [facility], and he will follow-up with his therapist, Mat, at [facility] as scheduled. (3) Anxiety: 02/11 -encourage group attendance, work on healthy coping skills and safety plan. Increase clonazepam to 0.5 mg 3 times daily as needed anxiety. 02/12 - Continue as above 02/14--reviewed 02/16--continue as above --for the most part, patient continues to only utilize two doses of clonazepam daily - but continues to have three doses availabe each day. 02/22 -prescription issued for clonazepam 0.5 mg #21, 3 times daily PRN anxiety. (4) Hypertension: 02/11 - Continue home dose of lisinopril. 02/14 reviewed (5) Hyperlipidemia: 02/11 - Continue home dose simvastatin. 02/14--reviewed Mental Health & Subst Abuse Tx Psychiatrist Name of Psychiatrist: Sherly Lundberg Psychiatrist's Date of Appointment with Psychiatrist: 03/01/20 Time of Appointment with Psychiatrist: 9:30 a.m. Psychiatric Appointment Comment: [place] [facility] Therapist Name of Therapist: Sherly Rivero Therapist's Date of Therapist Appointment: 02/24/20 Time of Therapist Appointment: 3:00 p.m. Therapy Appointment Comment: [place] [facility] Gasser Machine Operator Name of Gasser Machine Operator: CHAPITO Castro Phone Number for Gasser Machine Operator: [phone] Case Management Appointment Comment: Wed at 1 Post Discharge Appointments Primary Care Physician Name Of Family Doctor: Susie Liao Primary Care Time of Appointment with PCP: Please follow up as needed Provider Appointment Comment: [address] [place] [address] Partial or Psych Rehab Name of Partial or Psych Rehab: [facility] Phone Number of Partial or Psych Rehab: [phone] Partial or Psych Rehab Appointment Comment: Thurs at 1 Smoking Cessation Counseling Tobacco Cessation Medication Prescribed at Discharge: Not Applicable/Non-Smoker Contact Information Discharge Discharge Address: [address] [place] [address], [place] [address] Discharge Plan Discharge Items Patient Disposition: Home - Self-Care Reason For Visit: SCHIZOAFFECTIVE DISORDER Discharge Diagnosis: Schizoaffective disorder Condition on Discharge: Good Activity: Per Instructions section Non-emergency contact: Primary Care Provider, Psychiatrist, Therapist and Wood Type Finisher Call non-emergency contact if: you have any medication questions and your symptoms worsen Follow-up/Referrals: Nuvia Liao DO [Primary Care Provider] - Diet: Regular Addtl Attending Provider Instructions: SPECIAL CARE INSTRUCTIONS: 1. Follow through with your scheduled aftercare appointments. If unable to keep an appointment, please call to reschedule. 2. Take your medication only as prescribed. Medication should not be changed or stopped without the approval of your doctor. In the event of worsening symptoms or concerns about side effects, contact your doctor immediately. 3. Utilize new healthy coping skills, anger management skills, and stress management skills learned during your hospitalization. Journal feelings and process them with a support person. Identify stressors or situations that may result in relapse, deterioration or inappropriate behaviors and develop a plan to deal with those issues. 4. If your coping skills are ineffective and you are in crisis, contact your outpatient providers for direction. If unable to reach your providers, please call the [facility] CRISIS LINE AT , go to the [facility] walk-in center at [address], [address], [place], or go to the closest Emergency Room. 5. Avoid alcohol and un-prescribed drugs. 6. You have been provided with the Mental Health Advance Directives Pamphlet for your review. AFTERCARE APPOINTMENTS: * Please call your insurance company prior to your scheduled appointment to confirm your aftercare providers are covered. Take your insurance information to your a ppointments. WHO TO CALL AND WHEN: Medical Emergencies: For questions or emergencies related to your hospital stay, please contact the Inpatient Behavioral Health Unit at [phone]. A agricultural labor camp manager is on-call 04/12 for the Behavioral Health Unit for emergencies At any time you feel your situation is an emergency, you may also call 911 immediately. Pending Studies at Discharge: No Stand-Alone Forms: My [facility], Smoking Cessation, Suicide Prevention Resources Medications and DC Order Prescriptions: New clozapine [Clozaril] 25 mg Tablet 50 mg PO QAM Qty: 30 RF: 0 Continued propranolol 10 mg Tablet 10 mg PO 1200 Qty: 0 RF: 0 lisinopril 5 mg Tablet 5 mg PO DAILY RF: 0 simvastatin [Zocor] 20 mg Tablet 20 mg PO HS RF: 0 amitriptyline 100 mg Tablet 100 mg PO HS RF: 0 cholecalciferol (vitamin D3) [Vitamin D3] 1,000 unit Capsule 1,000 unit PO DAILY RF: 0 clozapine [Clozaril] 100 mg Tablet 300 mg PO HS RF: 0 divalproex [Depakote ER] 500 mg Tablet Extended Release 24 Hr 1,500 mg PO HS RF: 0 docusate sodium [DOK] 100 mg Capsule 100 mg PO BID RF: 0 clonazepam 0.5 mg Tablet 0.5 mg PO TID 7 Days Qty: 21 RF: 0 Discontinued clonazepam 0.5 mg Tablet 0.5 mg PO BID 30 Days Qty: 30 RF: 0 Discharge Orders: Discharge Order (Routine); Ordered 02/23/20 Ordered By: Soco Milner Admission Data Admit Date/Time: 02/11/20 18:39 Attending Provider: Soco Milner Admit Provider: Gracia Mosher Primary Care Provider: Nuvia Liao Other Interventions: PSY Interdisciplinary Discharge Planning Last Done: 02/20/20 15:52 Coding Level of Care Code 73947 D/C day mgmt > 30 min Diagnoses Homicidal ideation R45.850 Schizoaffective disorder F25.9 Schizoaffective disorder type: unspecified Anxiety F41.9 Hypertension I10 Hyperlipidemia E78.5
== END 2020-02-23 11:07 | disposition home or self-care (01) | DRG 885 ==
LOC: ED 14:01 → 3S 18:39

== ENCOUNTER 2022-09-13 15:58 | Inpatient (IN) ==
[2022-09-13] MEDS ORDERED: OLANZapine 10 MG/2.1 ML SDV IM STA (17:06)
[2022-09-13 17:55] LABS: Basophils # (auto) 0.03 K/uL (0-0.2); Basophils % (auto) 0.2 %; Hematocrit (blood only) 41.9 % (42.0-52.0); Hemoglobin 15.1 g/dl (14.0-18.0); Immature Granulocytes # (auto) 0.08 K/uL (0.01-0.20); Immature Granulocytes % (auto) 0.5 %; Lymphocytes # (auto) 1.06 K/uL (1.2-3.4); Lymphocytes % (auto) 6.6 %; Mean Corpuscular Hemoglobin 31.8 pg (25.0-34.0); Mean Corpuscular Volume 88.2 fL (80.0-100.0); Mean Platelet Volume 9.6 fL (9.4-12.4); Monocytes # (auto) 2.43 K/uL (0.11-0.59); Monocytes % (auto) 15.1 %; Neutrophils # (auto) 12.49 K/uL (1.40-6.50); Neutrophils % (auto) 77.6 %; Platelet Count 334 K/uL (130-400); RDW Coefficient of Variation 12.3 % (11.5-14.5); Red Blood Count 4.75 M/uL (4.70-6.10); White Blood Count 16.09 K/ul (4.8-10.8)
[2022-09-13 18:16] LABS: Acetaminophen < 3 ug/ml (10-30); Salicylate < 3.0 mg/dl (3.0-30)
[2022-09-13 18:18] LABS: Alanine Aminotransferase 33 U/L (7-52); Albumin Globulin Ratio 1.9 (0.9-2); Albumin Level 5.1 gm/dl (3.4-5.0); Alkaline Phosphatase 66 U/L (34-104); Anion Gap 20 (3-11); Aspartate Aminotransferase 45 U/L (13-39); BUN Creatinine Ratio 13.8 (10-20); Bilirubin,Total 0.7 mg/dl (0.2-1.0); Blood Urea Nitrogen 18 mg/dl (6-23); Calcium 10.3 mg/dl (8.6-10.3); Carbon Dioxide 18 mmol/L (21-32); Chloride 100 mmol/L (98-107); Est GFR (African American) 75.8 ml/min; Est GFR (Non-African American) 65.4 ml/min; Globulin 2.7 gm/dl (2.5-4.0); Glucose 136 mg/dl (70-99(Fasting)); Potassium 4.2 mmol/L (3.5-5.1); Sodium 138 mmol/L (136-145); Total Protein 7.8 gm/dl (6.0-8.3)
[2022-09-13 19:33] LABS: Appearance Urine Clear (Clear); Bacteria Urine Automated Negative (Negative); Bilirubin Urine Negative (Negative); Blood Urine Trace (Negative); Color Urine Yellow; Glucose Urine UA Negative (Negative); Ketones Urine 1+ (Negative); Leukocyte Esterase Urine Negative (Negative); Nitrite Urine Negative (Negative); Protein Urine Negative (Negative); Specific Gravity Urine 1.012 (1.000-1.030); Urobilinogen Urine Negative (Negative)
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
[2022-09-13 20:23] LABS: Sperm Urine Present (None Prsent)
[2022-09-13] MEDS ORDERED: SODIUM CHLORIDE 0.9% 1000ML 1,000 ML IV ONE (21:52)
[2022-09-13 21:58] LABS: Amphetamines+Metham, Urine Neg (Neg); Barbiturates, Urine Neg (Neg); Benzodiazepine, Urine Neg (Neg); Cocaine, Urine Neg (Neg); MDMA (Ecstacy), Urine Neg (Neg); Methadone, Urine Neg (Neg); Opiate, Urine Neg (Neg); Phencyclidine, Urine Neg (Neg)
[2022-09-14] MEDS ORDERED: OLANZapine 10 MG/2.1 ML SDV IM STA (04:35)
--- NOTE | 2022-09-14 04:45 | Emergency Department Note ---
ED Visit Note I received this patient in signout at the change of shift from Dr. Oliver pending transfer to the [facility] in the morning. The patient became quite agitated at around 4:30 AM. He was given 10 mg of IM olanzapine. 0450 called to patient room d/t seizure. Stopped without intervention however the patient was given 1 mg of IM Ativan and an IV was reestablished as the patient had pulled it out just minutes before the seizure. Patient's records were reviewed, no seizure history documented. Likely secondary to the olanzapine. Head CT ordered 0520 patient had a second seizure episode which also self resolved. Patient was given 1 mg of IV Ativan and 2 g of IV Keppra were ordered. Head CT pending. Patient noted to be in a rapid atrial flutter on telemetry. EKG was ordered and confirms rapid atrial flutter. 20 mg of IV Cardizem ordered and the patient was transferred to critical care bay. 0600 patient was intubated after another brief seizure episode. Keppra was running. Intubated using succinylcholine and etomidate. Patient placed on a propofol drip and given 4 mg of IV Versed. Patient converted to sinus rhythm after the above Cardizem. 1 L of IV normal saline solution was given as a bolus. Patient's laboratory work and case was reviewed with the ICU RAIL CAR DRIVER Davian Brandt. Dr. Nava of the hospitalist service was notified of the case and accepted for admission. Head CT is read as negative. Patient did drain an additional 2 L of urine from the Giles catheter placed. He had saturated the bed with urine during one of the seizures per nursing staff. PROCEDURE:Endotracheal Intubation Indication airway protection, seizure activity The patient was on 100% oxygen via NRB prior to the procedure. Suction, airway equipment, RSI drugs, respiratory equipment, and appropriate personnel were prepared prior to the initiation of the procedure. A time out was taken. Induction was performed with 20 mg of IV etomidate and 100 mg of IV succinylcholine. After observing the clinical benefit of the medications, the airway was easily visualized utilizing a glide scope 3.0 blade. A 7.5 size ETT tube was placed atraumatically to 25 cm using standard technique. The cuff inflated without signs of malfunction. There were bilateral breath sounds, positive colormetric change, no gastric sounds, a good capnography waveform, and post procedure pulse oximetry was 100%. Post intubation sedation was administered using 4 mg of IV Versed and propofol drip. There were no complications. Please refer to previous documentation for further details of history, physical exam and visit. I have personally spent greater than 65 minutes of critical care time in the direct management of this patient. This includes bedside care, interpretation of diagnostic studies, and testing, discussion with consultants, patient, and family members, and other required patient management activities. This 65 minutes is in excess of all separately billable procedures. .
[2022-09-14] MEDS ORDERED: LORazepam 2 MG/1 ML VIAL ONE ×2 (05:10→17:21)
[2022-09-14] MEDS ORDERED: LORazepam 2 MG/1 ML VIAL IM STA (05:15)
[2022-09-14] MEDS ORDERED: SODIUM CHLORIDE 0.9% 1000ML 1,000 ML IV ONE (05:24)
[2022-09-14] MEDS ORDERED: dilTIAZem HCl 5 MG/ML 5 ML VIAL IV STA (05:31)
[2022-09-14] MEDS ORDERED: LORazepam 2 MG/1 ML VIAL IV STA ×2 (05:31→17:38)
[2022-09-14] MEDS ORDERED: RAPID SEQUENCE INDUCTION BAG ONE (05:45)
[2022-09-14] MEDS ORDERED: PROPOFOL IV EMULSION 10 MG/ML 100 ML VIAL IV ONE (06:03)
[2022-09-14] MEDS ORDERED: STAT IV Infusion **Titration per Protocol STA (06:08)
[2022-09-14] MEDS ORDERED: MIDAZOLAM HCL 5 MG/ML 1 ML VIAL IV STA (06:08)
[2022-09-14] MEDS: propofoL 1,000 MG/100 ML VIAL IV SCH ×4 (06:12→18:48)
--- NOTE | 2022-09-14 06:18 | CT Scan Report ---
Exam(s): CT HEAD Without Contrast EXAM: CT Head Without Intravenous Contrast CLINICAL HISTORY: Reason for exam: seizure, new onset. TECHNIQUE: Axial computed tomography images of the head/brain without intravenous contrast. CTDI is 36.51 mGy and DLP is 614.27 mGy-cm. Automated exposure control was utilized for the study. A dose lowering technique was utilized adhering to the principles of ALARA. COMPARISON: No relevant prior studies available. FINDINGS: Brain: Unremarkable. No hemorrhage. No significant white matter disease. No edema. Ventricles: Unremarkable. No ventriculomegaly. Bones/joints: Unremarkable. No acute fracture. Soft tissues: Unremarkable. Sinuses: Unremarkable as visualized. No acute sinusitis. Mastoid air cells: Unremarkable as visualized. No mastoid effusion. IMPRESSION: No acute infarct or intracranial hemorrhage Electronically signed by: Yahir Vanegas MD 09/14/22 06:17 AM
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
[2022-09-14] MEDS ORDERED: LORazepam 2 MG/1 ML VIAL IV PRN (06:29)
[2022-09-14] MEDS ORDERED: ACETAMINOPHEN 1,000 MG/100 ML VIAL IV PRN (06:30)
[2022-09-14] MEDS ORDERED: LACTATED RINGER'S 1,000 ML IV STA (06:34)
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
[2022-09-14] MEDS: PROPOFOL BOLUS FROM BAG IV PRN ×8 (07:01→17:17)
[2022-09-14] MEDS ORDERED: ICU Protocol for HYPERglycemia SCH (07:30)
--- NOTE | 2022-09-14 08:01 | XRay Report ---
SINGLE VIEW CHEST CLINICAL HISTORY: Respiratory failure. Tube placement. FINDINGS: An AP, portable, supine chest radiograph is compared to study dated 05/26/2018. An endotrach eal tube has been placed. The tip projects over the thoracic inlet approximately 6.5 cm above the car hubert. An enteric tube is in place. The tip projects below the diaphragm and is not visualized. The car diomediastinal silhouette is unremarkable. The lungs and pleural spaces are clear. No pneumothorax is seen. The bony thorax is grossly intact. IMPRESSION: 1. Endotracheal and enteric tube placement as above. 2. The lungs are clear. ACT 112: Negative or not required by law. Electronically signed by: Juan Ferguson M.D. 09/14/2022 7:59 AM
[2022-09-14] MEDS ORDERED: ENOXAPARIN INJ 30 MG/0.3 ML SYR SQ SCH (09:00)
[2022-09-14] MEDS ORDERED: fentaNYL citrate PF 100 MCG/2 ML VIAL IV PRN ×2 (09:42→21:02)
[2022-09-14 10:09] LABS: Base Excess VBG -2.4 mEq/L; HCO3 VBG 25 mmol/L; Oxygen Saturation VBG < 60.0 %; PCO2 VBG 50 mmHg (38-50); PO2 VBG 33 mmHg
[2022-09-14 10:16] LABS: Basophils # (auto) 0.03 K/uL (0-0.2); Basophils % (auto) 0.2 %; Hematocrit (blood only) 36.7 % (42.0-52.0); Hemoglobin 12.8 g/dl (14.0-18.0); Immature Granulocytes # (auto) 0.09 K/uL (0.01-0.20); Immature Granulocytes % (auto) 0.7 %; Lymphocytes % (auto) 9.6 %; Mean Corpuscular Hemoglobin 32.1 pg (25.0-34.0); Mean Corpuscular Hgb Conc 34.9 g/dL (32.0-36.0); Mean Platelet Volume 9.3 fL (9.4-12.4); Monocytes # (auto) 2.11 K/uL (0.11-0.59); Monocytes % (auto) 15.6 %; Neutrophils # (auto) 9.96 K/uL (1.40-6.50); Neutrophils % (auto) 73.9 %; Platelet Count 241 K/uL (130-400); RDW Coefficient of Variation 12.9 % (11.5-14.5); RDW Standard Deviation 43.5 fL (36.4-46.3); Red Blood Count 3.99 M/uL (4.70-6.10); White Blood Count 13.49 K/ul (4.8-10.8)
[2022-09-14 10:35] LABS: Calcium 8.6 mg/dl (8.6-10.3); Creatinine Clr Calc Pharmacy 94.8 ml/min; Est GFR (African American) 116.7 ml/min; Est GFR (Non-African American) 100.7 ml/min; Magnesium 2.5 mg/dl (1.7-2.4); Potassium 3.8 mmol/L (3.5-5.1)
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
--- NOTE | 2022-09-14 10:41 | Electrocardiogram Report ---
Test Reason : Blood Pressure : / mmHG Vent. Rate : 118 BPM Atrial Rate : 118 BPM P-R Int : 158 ms QRS Dur : 082 ms QT Int : 322 ms P-R-T Axes : 057 080 062 degrees QTc Int : 451 ms Sinus tachycardia Possible Left atrial enlargement Borderline ECG When compared with ECG of 04-MAR-2019 15:04, QRS duration has decreased Confirmed by Andres Luciano ([id number]) on 09/14/2022 10:41:25 AM Referred By: REFERRED SELF Confirmed By:Andres Luciano
--- NOTE | 2022-09-14 10:55 | Electroencephalogram ---
EEG Procedure Note Date of Service September 14, 2022 Start / End Times Start Time: 10:06 AM End Time: 10:[address] Martinez History Seizure Home Medication List Medication Instructions Recorded Confirmed Type divalproex 500 mg tablet,extended 1,500 mg PO BID 03/17/19 05/12/22 History release 24 hr (Depakote ER) simvastatin 20 mg tablet (Zocor) 20 mg PO HS 03/17/19 05/12/22 History acetaminophen 500 mg tablet 1,000 mg PO Q8H PRN Headache 07/07/20 05/12/22 History clonazepam 2 mg tablet 2 mg PO BID 05/13/22 05/13/22 History glycopyrrolate 2 mg tablet 2 mg PO BID 05/13/22 05/13/22 History vitamin E (dl, acetate) 180 mg 180 mg PO DAILY 05/13/22 05/13/22 History (400 unit) capsule diphenhydramine HCl 25 mg capsule 50 mg PO HS PRN Insomnia 09/13/22 09/13/22 History divalproex 500 mg tablet,extended 500 mg PO DAILY 09/13/22 09/13/22 History release 24 hr oxcarbazepine 150 mg tablet 150 mg PO BID 09/13/22 09/13/22 History oxcarbazepine 600 mg tablet 600 mg PO BID 09/13/22 09/13/22 History Inpatient Medication List Propofol (Diprivan) 1,000 mg in 100 mls @ 16.32 mls/hr IV .Q6H8M [facility]; Protocol Stop: 09/17/22 06:14 Last Titration: 09/14/22 10:00 Dose: 45 mcg/kg/min, 18.4 mls/hr Documented By: [id number] Titration: 09/14/22 08:40 Dose: 40 mcg/kg/min, 16.3 mls/hr Documented By: [id number] Titration: 09/14/22 08:35 Dose: 35 mcg/kg/min, 14.3 mls/hr Documented By: [id number] Titration: 09/14/22 07:35 Dose: 30 mcg/kg/min, 12.2 mls/hr Documented By: Titration: 09/14/22 06:52 Dose: 25 mcg/kg/min, 10.2 mls/hr Documented By: Admin: 09/14/22 06:12 Dose: 20 mcg/kg/min, 8.2 mls/hr Documented By: MARY Co-signed By: JALIL Lactated Ringer's (Lr) 1,000 mls @ 100 mls/hr IV .Q10H STA Stop: 09/14/22 16:33 Last Admin: 09/14/22 06:43 Dose: 100 mls/hr Documented By: MARY Propofol (Propofol Bolus From Bag) 20 mg IV Q5M PRN PRN Reason: Sedation Stop: 09/17/22 06:07 Last Admin: 09/14/22 10:00 Dose: 20 mg Documented By: [id number] Co-signed By: JAKE Admin: 09/14/22 08:35 Dose: 20 mg Documented By: [id number] Co-signed By: JAKE Admin: 09/14/22 08:25 Dose: 20 mg Documented By: TRINH Co-signed By: NICOLAS Admin: 09/14/22 08:08 Dose: 20 mg Documented By: TRINH Co-signed By: NICOLAS Admin: 09/14/22 07:33 Dose: 20 mg Documented By: TRINH Co-signed By: RAYMON Admin: 09/14/22 07:01 Dose: 20 mg Documented By: MARY Co-signed By: JALIL Discontinued Medications Diltiazem HCl (Diltiazem Hcl 5 Mg/Ml 5 Ml Vial) 20 mg IV NOW STA Stop: 09/14/22 05:32 Last Admin: 09/14/22 06:02 Dose: 20 mg Documented By: MARY Co-signed By: CASE Sodium Chloride (Nss 1000ml) 1,000 mls @ 999 mls/hr IV .Q1H1M ONE Stop: 09/13/22 22:52 Last Infusion: 09/13/22 23:58 Dose: 0 mls/hr Documented By: Admin: 09/13/22 22:15 Dose: 999 mls/hr Documented By: JOSSELINE Levetiracetam 2,000 mg/ Sodium (Chloride) 270 mls @ 999 mls/hr IV NOW STA Stop: 09/14/22 05:40 Last Infusion: 09/14/22 06:13 Dose: 0 mls/hr Documented By: Admin: 09/14/22 05:52 Dose: 999 mls/hr Documented By: MARY Sodium Chloride (Nss 1000ml) 1,000 mls @ 999 mls/hr IV .Q1H1M ONE Stop: 09/14/22 06:24 Last Infusion: 09/14/22 07:02 Dose: 0 mls/hr Documented By: Admin: 09/14/22 06:02 Dose: 999 mls/hr Documented By: MARY Lorazepam (Lorazepam 2 Mg/1 Ml Vial) Confirm Administered Dose 2 mg .ROUTE .STK- MED ONE Stop: 09/14/22 05:11 Last Admin: 09/14/22 05:16 Dose: Not Given Documented By: MARY Lorazepam (Lorazepam 2 Mg/1 Ml Vial) 1 mg IM NOW STA Stop: 09/14/22 05:16 Last Admin: 09/14/22 05:16 Dose: 1 mg Documented By: MARY Lorazepam (Lorazepam 2 Mg/1 Ml Vial) 1 mg IV NOW STA Stop: 09/14/22 05:32 Last Admin: 09/14/22 05:32 Dose: 1 mg Documented By: MARY Midazolam HCl (Midazolam Hcl 5 Mg/Ml 1 Ml Vial) 4 mg IV NOW STA Stop: 09/14/22 06:09 Last Admin: 09/14/22 06:15 Dose: 4 mg Documented By: MARY Miscellaneous (Rapid Sequence Induction Bag) Confirm Administered Dose 1 each N/A .STK-MED ONE Stop: 09/14/22 05:46 Last Admin: 09/14/22 06:13 Dose: Not Given Documented By: MARY Lynn (Stat Iv Infusion Titration Per Protocol) 1 each N/A NOW STA Stop: 09/14/22 06:09 Last Admin: 09/14/22 06:12 Dose: Not Given Documented By: MARY Lynn (Icu Protocol For Hyperglycemia) 1 each N/A ACHS CALI Stop: 09/16/22 07:29 Last Admin: 09/14/22 09:08 Dose: Not Given Documented By: [id number] Olanzapine (Olanzapine 10 Mg/2.1 Ml Sdv) 10 mg IM NOW STA Stop: 09/13/22 17:07 Last Admin: 09/13/22 17:15 Dose: 10 mg Documented By: LOS Olanzapine (Olanzapine 10 Mg/2.1 Ml Sdv) 10 mg IM NOW STA Stop: 09/14/22 04:36 Last Admin: 09/14/22 04:40 Dose: 10 mg Documented By: IAN Propofol (Propofol Iv Emulsion 10 Mg/Ml 100 Ml Vial) Confirm Administered Dose 1,000 mg IV .[place] ONE Stop: 09/14/22 06:04 Last Admin: 09/14/22 06:12 Dose: Not Given Documented By: MARY Description This is a 21 electrode EEG with a single channel dedicated to limited EKG. The electrodes were placed in accordance with the International 10-20 system. This EEG was completed while the patient was on the mechanical ventilator, his sedation have been reduced. There is a posterior dominant rhythm of about 12 Hz. Photic stimulation unremarkable. Hyperventilation not performed. There is intermittent 4-1/2 Hz left parietal slowing with occasional associated sharps. No spike wave abnormalities. No abnormally synchronous activity observed. Interpretation Potentially abnormal awake/drowsy EEG with evidence of left parietal slowing and sharps. Would correlate with brain MRI. No evidence of persistent seizure activity. [facility] EEG Procedure Codes Indication for Procedure (1) Seizure: Neurology Neurology: [id number] EEG include record awake & drowsy
--- NOTE | 2022-09-14 10:58 | Electrocardiogram Report ---
Test Reason : Blood Pressure : / mmHG Vent. Rate : 164 BPM Atrial Rate : 300 BPM P-R Int : 000 ms QRS Dur : 088 ms QT Int : 264 ms P-R-T Axes : 110 085 031 degrees QTc Int : 436 ms Atrial flutter with variable A-V block Nonspecific ST abnormality Abnormal ECG When compared with ECG of 13-SEP-2022 21:12, (unconfirmed) Atrial flutter has replaced Sinus rhythm ST now depressed in Lateral leads Confirmed by Andres Luciano ([id number]) on 09/14/2022 10:57:37 AM Referred By: REFERRED SELF Confirmed By:Andres Luciano
--- NOTE | 2022-09-14 11:25 | Communication Note ---
Date of Service: September 14, 2022 Brief psychiatry note: Attempted to see patient for psychiatric consult but he remains intubated. based on chart review- 47 yo man with history of schizoaffective disorder recently discharged from the [facility] about 3 days ago after a months long stay (reportedly May-September 11) and brought to the ED by police after acting bizarrely at [email or web address] and responding to internal stimuli. Confirmed with his outpatient pharmacy that he did last picker scripts for oxcarbazepine 750mg BID, Klonopin 1mg daily, Benadryl 50mg HS and Depakote ER 500mg daily. A/P: Suspect he likely was non-adherent with his psychiatric medications after discharge and if he abruptly stopped taking Depakote and Tegretol and then was non-adherent with Klonopin and was in benzodiazepine withdrawal his seizure threshold was likely already lowered and then had a subsequent seizure following olanzapine IM administration (which furthers lowers seizure threshold but it is quite atypical for olanzapine provoke a seizure in someone without a seizure history or who is not already at a lowered threshold). The patient remains hospitalized on a completed 302 involuntary commitment, which if not extended, will on 09/18/2022 at 17:32. This patient must remain on safety precautions with a 1-on-1 once extubated and is unable to leave the hospital AMA. -Once extubated he will require a 1-on-1 given he is on a completed 302 -He is on a 302 commitment -He may not leave AMA -Would consider restarting Depakote ER once able to swallow po pills if felt to be safe to transition to this from prior Keppra in ED (defer to hospitalist and neuro on whether or not his prior to admission Tegretol is also needed and if Depakote will provide enough coverage for seizure prevention moving forward) -Consider AWSS if ongoing concern for possible benzodiazepine withdrawal -Given multiple listed prior medication reactions would use ativan IM or IV for behavioral emergencies for now. If an antipsychotic is required would use combination of: Haldol 5mg IM, benadryl 50mg IM, ativan 2mg IM.
--- NOTE | 2022-09-14 11:29 | Communication Note ---
Date of Service: September 14, 2022 Patient seen and examined in the ICU. He is mechanically ventilated, sedated with propofol and as needed fentanyl. No abnormal body movements noted Patient had an EEG in the morning; potentially abnormal awake/drowsy EEG with evidence of left parietal slowing and sharps. Patient to have MRI brain done today. Also, to undergo lumbar puncture. Neurology, psychiatry on board. Constitutional: Mechanically ventilated and sedated. Respiratory: Bilateral mechanical breath sound Cardiovascular: RRR, no murmur, no edema Vessels: no JVD or carotid bruit Chest: normal inspection of chest Abdomen: Soft, nondistended. Musculoskeletal: no cyanosis or clubbing, extremities motor strength 5/5 Skin: no rashes, warm and dry normal turgor Neurologic: Sedated; Psychiatric: Sedated
--- NOTE | 2022-09-14 11:34 | XRay Report ---
XR KUB pre MRI CLINICAL HISTORY: Clearance for MRI COMPARISON STUDY: No previous studies for comparison. FINDINGS: Tip of nasogastric tube is within the gastric antrum. The bowel gas pattern is normal. Susp ected rectal monitoring device is in place. There are no additional contraindications to MRI within t he abdomen or pelvis. IMPRESSION: Suspected rectal monitoring device in place which should be removed prior to MRI. No add itional contraindications to MRI within the abdomen or pelvis. ACT 112: Negative or not required by law. Electronically signed by: Messi Toro M.D. 09/14/2022 11:33 AM
[2022-09-14] MEDS: fentaNYL citrate PF 100 MCG/2 ML VIAL IV PRN ×4 (11:37→20:58)
[2022-09-14] MEDS: ICU Protocol for HYPERglycemia SCH ×2 (12:09→21:04)
--- NOTE | 2022-09-14 14:15 | Procedure Note ---
Procedure Note Date of Service September 14, 2022 Note Procedure Date: Noted above Procedure: Lumbar puncture Pre-procedure Diagnosis: New onset seizure, acute encephalopathy Post-procedure Diagnosis: same as above Prior to Procedure: Informed Consent: Unable to contact proxies listed in the medical chart, two- physician consent obtained. Attending Staff: Annemarie Ambrosio DO Resident/Physician Electrophysiology Technologist: Lico Fraire MD Indications: New onset seizure, acute encephalopathy The identity of the patient was confirmed and a bedside time out was performed. Description of Procedure: Patient was positioned in the right lateral decubitus position, prepped and draped in usual sterile fashion. The L3-4 space located with bilateral iliac crests as landmarks. 1% Lidocaine without epinephrine was used to anesthetize the area. A 20 gauge spinal needle was introduced into the subarachnoid space. Stylet was removed with appropriate fluid return. Needle removed after adequate fluid collected and sterile bandage placed at puncture site. 10 mL of CSF fluid collected. Fluid was clear. Specimen(s): sent for Gram Stain, culture, cell count, glucose, protein, bio fire PCR Complications: None Findings: Normal-appearing CSF Estimated Blood Loss: trace Coding CPT Codes Lumbar Puncture - Lumbar Puncture, Diagnostic: 83447 Lumbar Puncture, Diagnostic ([id number]) [facility] [place] Procedure Codes (Charges) Lumbar Puncture Lumbar Puncture, Diagnostic: 52470 Lumbar Puncture, Diagnostic
[2022-09-14 14:28] LABS: Total Protein CSF 51.4 mg/dl (15-45)
[2022-09-14] MEDS ORDERED: MIDAZOLAM HCL 5 MG/ML 2ML VIAL IV ONE (14:49)
[2022-09-14] MEDS ORDERED: SUCCINYLCHOLINE CHLORIDE 20 MG/ML 10 ML VIAL IV ONE (14:49)
[2022-09-14] MEDS ORDERED: ETOMIDATE 2 MG/ML 20 ML VIAL IV ONE (14:49)
[2022-09-14 15:21] LABS: Appearance CSF Clear; CSF Count Tube # 3; CSF Xanthrochromic No xanthochromia; Color CSF Colorless
[2022-09-14 15:38] LABS: Cryptococcus neoformans/ga PCR Not Detected (NotDetected); Cytomegalovirus PCR Not Detected (NotDetected); Enterovirus PCR Not Detected (NotDetected); Escherichia coli K1 PCR Not Detected (NotDetected); Haemophilius influenzae PCR Not Detected (NotDetected); Herpes Simplex Virus 1 PCR Not Detected (NotDetected); Herpes Simplex Virus 2 PCR Not Detected (NotDetected); Human Herpes Virus 6 PCR Not Detected (NotDetected); Human Parechovirus PCR Not Detected (NotDetected); Listeria monocytogenes PCR Not Detected (NotDetected); Neisseria meningitidis PCR Not Detected (NotDetected); Streptococcus agalactiae PCR Not Detected (NotDetected); Streptococcus pneumoniae PCR Not Detected (NotDetected); Varicella Zoster Virus PCR Not Detected (NotDetected)
[2022-09-14] MEDS ORDERED: VECURONIUM BROMIDE 10 MG VIAL IV ONE (17:21)
[2022-09-14] MEDS ORDERED: VECURONIUM BROMIDE 10 MG VIAL IV STA (17:37)
[2022-09-14] MEDS ORDERED: fentaNYL citrate PF 100 MCG/2 ML VIAL IV ONE (17:45)
[2022-09-14] MEDS ORDERED: GADOBUTROL 65ML VIAL IV ONE (18:15)
--- NOTE | 2022-09-14 19:38 | Magnetic Resonance Report ---
Brain MRI WITH AND WITHOUT CONTRAST HISTORY: Seizures. TECHNIQUE: Multiplanar multisequence MRI of the brain was performed both before and after the intrave nous administration of contrast. COMPARISON STUDY: Head CT 09/14/2022. FINDINGS: There are no areas of restricted diffusion to suggest acute infarction. The midline structu res are intact. The paranasal sinuses are clear. The mastoid air cells are clear. The ventricles and sulci are within normal limits for age. There is no mass, hematoma, midline shift. The major vascular flow-voids at the skull base are well maintained. Postcontrast sequences show no areas of abnormal e nhancement. The temporal lobes are symmetric. No evidence for cortical dysplasia or rendon matter heter otopia. A few punctate foci of T2 hyperintensity seen within the periventricular and subcortical whit e matter of the supratentorial brain. These are nonspecific but greater than expected for age. IMPRESSION: 1. No acute infarct or intracranial hemorrhage. 2. The temporal lobes are symmetric. 3. A few punctate foci of T2 hyperintensity seen within the periventricular and subcortical white mat ter of the supratentorial brain. These are nonspecific but greater than expected for age. Therefore, this could represent early microvascular ischemic change, migraines, Lyme's disease, or less likely a demyelinating disease or vasculitis. ACT 112: Negative or not required by law. Electronically signed by: Truman Fang M.D. 09/14/2022 7:35 PM
[2022-09-14] MEDS ORDERED: DEXTROSE 50% 50 ML SYRINGE IV ONE ×2 (23:38→23:44)
[2022-09-14] MEDS ORDERED: diphenhydrAMINE Capsule 25 MG CAP PO ONE (23:44)
[2022-09-15] MEDS ORDERED: DEXTROSE 5% 1,000 ML IV SCH
[2022-09-15] MEDS: ICU Protocol for HYPERglycemia SCH ×3 (00:26→12:03)
[2022-09-15] MEDS: OXcarbazepine 150 MG TABLET PO SCH ×3 (00:27→20:17)
[2022-09-15] MEDS: LORazepam 2 MG/1 ML VIAL IV PRN (00:59)
[2022-09-15] MEDS ORDERED: LORazepam 2 MG/1 ML VIAL IV STA (04:37)
[2022-09-15] MEDS: propofoL 1,000 MG/100 ML VIAL IV SCH (05:11)
--- NOTE | 2022-09-15 05:35 | Communication Note ---
Date of Service: September 14, 2022 At 2320, I was notified that the patient had self extubated despite measures of sedation and restraints. Sedation has been discontinued and the patient is nuris ntaining oxygenation on NC w/o respiratory distress. No upper airway edema or stridor on examination. He did pass a bedside swallow and home medications have been resumed. Patient one on one sitter is now at the bedside and psychiatric nurse came to the bedside to evaluate the patient as well. I did order prn ativan and haldol for agitation. Coding Level of Care Code None
[2022-09-15 06:11] LABS: Basophils # (auto) 0.02 K/uL (0-0.2); Basophils % (auto) 0.2 %; Hematocrit (blood only) 32.6 % (42.0-52.0); Hemoglobin 11.2 g/dl (14.0-18.0); Immature Granulocytes # (auto) 0.05 K/uL (0.01-0.20); Immature Granulocytes % (auto) 0.5 %; Lymphocytes # (auto) 1.07 K/uL (1.2-3.4); Mean Corpuscular Hemoglobin 31.6 pg (25.0-34.0); Mean Corpuscular Hgb Conc 34.4 g/dL (32.0-36.0); Mean Corpuscular Volume 92.1 fL (80.0-100.0); Mean Platelet Volume 9.4 fL (9.4-12.4); Monocytes # (auto) 1.61 K/uL (0.11-0.59); Monocytes % (auto) 16.6 %; Neutrophils # (auto) 6.96 K/uL (1.40-6.50); Neutrophils % (auto) 71.7 %; Platelet Count 195 K/uL (130-400); RDW Coefficient of Variation 12.7 % (11.5-14.5); RDW Standard Deviation 42.8 fL (36.4-46.3); Red Blood Count 3.54 M/uL (4.70-6.10); White Blood Count 9.71 K/ul (4.8-10.8)
[2022-09-15 06:33] LABS: BUN Creatinine Ratio 11.7 (10-20); Calcium 8.3 mg/dl (8.6-10.3); Creatinine Clr Calc Pharmacy 91.6 ml/min; Est GFR (African American) 100.5 ml/min; Est GFR (Non-African American) 86.7 ml/min; Magnesium 1.8 mg/dl (1.7-2.4); Phosphorus 2.3 mg/dl (2.5-4.9); Potassium 3.1 mmol/L (3.5-5.1)
--- NOTE | 2022-09-15 06:50 | Critical Care Progress Note ---
Date of Service September 15, 2022 Assessment & Plan (1) Seizure: (2) Atrial flutter: (3) Psychosis: (4) Schizoaffective disorder: (5) Anxiety: Plan Reason Critically Ill: 47 -year-old male here with a history significant for depression, anxiety, schizoaffective disorder who presented for mental health evaluation and was intubated after seizure like activity. Extubated and stable for downgrade from ICU. Neuro - [facility] ICU: Negative Seizure - New onset seizure. No documented prior history. - Differential- Medication toxicity, infectious- recently discharged from the [facility] on oxcarbazepine 750mg BID, Klonopin 1mg daily, Benadryl 50mg HS and Depakote ER 500mg daily. Was picked up from pharmacy, but concerns as to whether or not he was compliant with medications, which could have lowered seizure threshold in addition to administration of olanzapine. - EEG without evidence of persistent seizure activity. - Blood cultures are pending - LP completed with CSF clear, mildly elevated glucose, mildly elevated protein, - CT without acute process - Neurology and psychiatry consulted - MRI Brain without acute process. Does note A few punctate foci of T2 hyperintensity seen within the periventricular and subcortical white matter of the supratentorial brain. These are nonspecific but greater than expected for age. Lyme serology pending. Schizoaffective Disorder - Currently on 302 which will 09/18/2022 - Psychiatry is consulted - Continue on Depakote Cardiac - Atrial Flutter - S/p 20mg Cardizem in ED - HR down to 80s, NSR - Continue to monitor on telemetry Respiratory - Extubated and stable on room air GI - Clear liquid diet, can be advanced as tolerated RENAL/LYTES - Replace lytes as needed. - Acute Urinary Retention - Noted to have 2L urinary retention when Giles was placed in the ED - Likely anticholinergic side effect secondary to olanzapine ENDO - No history of diabetes or thyroid disease. Follow ICU hyperglycemic protocols HEME - Stable H&H. ID - Leukocytosis - leukocytosis to 16 upon presentation. Did meet SIRs criteria upon presentation tacccyrdaia and leukocytosis. No obvious source of infection. - Blood cultures pending - Procalcitonin, lactate within normal limits - CXR without signs of pneumonia - LP as per above. - No signs of infection at this time LINES/IV ACCESS - PIVs intact. Thank you for allowing us to be part of this patient's care. Please refer to Dr. Ambrosio's documentation for any further recommendations. Admission and Anticipated Discharge Date Admission Date: September 14, 2022 Supervising Physician Co-Signing Physician Notes Dr. Martinez was resident physician during care of patient. I separately evaluated patient for mills portions of the history and the exam. I was present during the critical portion of medical decision making, and I discussed the case with the resident. I generally agree with the findings and plan. Patient self-extubated overnight despite aggressive sedation and restraints. Reviewed the MRI results. We will send lyme serology and csf based on MRI report, Neurology following. CSF largely unremarkable: mildly elevated glucose and protein, no RBC/WBC. Critical care needs have resolved, deferring additional evaluation to primary team. Stable for downgrade out of ICU Subjective Pt was sedated when I saw him this morning. Comfortable and in no acute distress. Review of Systems Review of Systems: Limited as pt was sedated Physical Exam Physical Exam: HEENT: NCAT, no conjunctival injection CV: regular rhythm, no murmur appreciated, extremities well-perfused, no LE edema Resp: Intubated and mechanically ventilated, CTABL, no wheezes/rales/rhonchi appreciated GI: soft, nondistended, BS normoactive MSK: no gross deformities appreciated Skin: warm, dry, no rash appreciated Neuro: sedated Results & Data Results & Data Vital Signs (Past 12 Hours) Vital Signs Pulse Resp BP Pulse Ox O2 Del Method FiO2 09/15/22 05:15 116/56 L 09/15/22 05:15 107 H 36 H 94 09/15/22 05:00 113 H 18 92 09/15/22 05:00 112/55 L 09/15/22 04:47 122 H 32 H 92 09/15/22 04:47 124/68 09/15/22 04:31 104/73 09/15/22 04:31 124 H 36 H 91 09/15/22 04:15 115 H 35 H 91 09/15/22 04:15 116/75 09/15/22 04:00 112 H 28 H 92 09/15/22 04:00 113/59 L 09/15/22 03:45 116 H 29 H 92 09/15/22 03:45 108/56 L 09/15/22 03:30 108/43 L 09/15/22 03:30 120 H 37 H 93 09/15/22 03:15 107/51 L 09/15/22 03:15 113 H 35 H 92 09/15/22 03:00 120 H 36 H 92 09/15/22 03:00 118/53 L 09/15/22 02:46 122 H 20 92 09/15/22 02:46 133/56 L 09/15/22 02:30 117/59 L 09/15/22 02:30 115 H 32 H 90 09/15/22 02:15 130/64 09/15/22 02:15 113 H 42 H 88 L 09/15/22 02:01 132/53 L 09/15/22 02:01 115 H 26 H 91 09/15/22 02:00 119 H 32 H 92 09/15/22 01:45 105 H 28 H 91 09/15/22 01:45 121/68 09/15/22 01:30 112 H 23 92 09/15/22 01:30 104/65 09/15/22 01:16 118 H 34 H 92 09/15/22 01:16 105/71 09/15/22 01:01 100/55 L 09/15/22 01:01 112 H 32 H 91 09/15/22 01:00 114 H 30 H 90 09/15/22 00:45 105 H 32 H 90 09/15/22 00:45 125/63 09/15/22 00:30 103 H 29 H 90 09/15/22 00:30 114/64 09/15/22 00:15 105 H 23 91 09/15/22 00:15 115/60 09/15/22 00:00 108 H 28 H 91 09/15/22 00:00 113/67 09/14/22 23:45 108 H 21 94 09/14/22 23:45 129/65 09/14/22 23:30 114/61 09/14/22 23:30 112 H 18 95 05 23:15 91 H 16 99 05 23:15 105/60 09/14/22 23:00 88 16 99 05 23:00 111/60 09/14/22 22:45 89 16 97 05 22:45 109/60 09/14/22 22:30 96 H 16 98 05/04/23 22:30 111/62 09/14/22 22:15 82 15 98 09/14/22 22:15 106/59 L 09/14/22 22:00 87 16 99 09/14/22 22:00 103/56 L 09/14/22 21:45 87 16 99 09/14/22 21:45 102/57 L 09/14/22 21:30 87 16 99 09/14/22 21:30 104/63 09/14/22 21:15 84 16 99 09/14/22 21:15 109/61 09/14/22 21:00 86 16 99 09/14/22 21:00 115/67 09/14/22 20:45 81 16 99 09/14/22 20:45 109/64 09/14/22 20:30 78 16 100 09/14/22 20:30 107/67 09/14/22 20:15 75 16 100 09/14/22 20:15 102/60 09/14/22 20:00 74 16 100 09/14/22 20:00 103/60 09/14/22 19:45 74 16 99 09/14/22 19:45 95/57 L 09/14/22 19:30 98/58 L 09/14/22 19:30 73 16 99 09/14/22 19:15 73 16 98 09/15/22 00:00 92 H 09/14/22 22:35 16 30 09/14/22 20:00 Mechanical Vent 30 09/14/22 20:00 30 09/14/22 20:16 16 30 Resident Activity Tracking Resident Involvement: Resident Care Provided Care Provided: Adult Hospital Medicine (3) Psychosis Psychosis type: schizoaffective disorder Schizoaffective disorder type: unspecified Qualified Code(s): F25.9 - Schizoaffective disorder, unspecified
[2022-09-15] MEDS ORDERED: POTASSIUM PHOS 3 MMOL/1 ML INFUSION IV STA (07:02)
[2022-09-15] MEDS ORDERED: POTASSIUM PHOSPHATE 40 MMOL in SODIUM CHLORIDE 0.9% 1000ML 1,000 ML IV ONE (07:15)
[2022-09-15] MEDS: MAGNESIUM SULFATE / D5W 1 GM/100 ML BAG IV SCH ×2 (08:04→10:10)
[2022-09-15] MEDS: DIVALPROEX EXTENDED RELEASE 500 MG TAB PO SCH (08:04)
[2022-09-15] MEDS: clonazePAM 1 MG TAB PO SCH (08:05)
--- NOTE | 2022-09-15 08:23 | Billing Data ---
Date of Service September 15, 2022 Coding Level of Care Code 09669 SUB INP/OBS CARE
[2022-09-15 09:42] LABS: Lyme Ab IgG w/WB Rflx Negative (Negative); Lyme Ab IgM w/WB Rflx Negative (Negative)
--- NOTE | 2022-09-15 11:49 | Communication Note ---
Date of Service: September 15, 2022 Patient remains sedated today. Given history of agitation and goal of attempting to reduce need for antipsychotics it was not felt therapeutic at this time to wake him. A/P: Please see previous communication note for prior recommendations. -Now 1-on-1 as extubated -Psychiatry will continue to follow. -303 hearing will need to be pursued on Sunday, if he is not yet medically clear or if psychiatric placement has not occurred, before his 302 expires on 09/18/2022 at 1732
--- NOTE | 2022-09-15 13:01 | Hospitalist Progress Note ---
Date of Service September 15, 2022 Assessment & Plan (1) Seizure: (2) Schizoaffective disorder: (3) Hypokalemia: (4) Hypophosphatemia: Plan Recurrent seizures status post intubation for airway protection- Possibly from high-dose Zyprexa administration -Patient self extubated yesterday and has been stable on NC. -Seen by neurology-recommends noted. Currently on Depakote and oxcarbazepine, also for his psychiatric issues EEG: Potentially abnormal awake/drowsy EEG with evidence of left parietal slowing and sharps. Would correlate with brain MRI. No evidence of persistent seizure activity. MRI brain 1. No acute infarct or intracranial hemorrhage. 2. The temporal lobes are symmetric. 3. A few punctate foci of T2 hyperintensity seen within the periventricular and subcortical white matter of the supratentorial brain. These are nonspecific but greater than expected for age. Therefore, this could represent early microvascular ischemic change, migraines, Lyme's disease, or less likely a demyelinating disease or vasculitis. Hypokalemia-repleted. Recheck in a.m. Hypophosphatemia- repleted, recheck in am Transient atrial flutter secondary to illness- Patient NSR post Cardizem administration at the ER. Echo reviewed Schizoaffective disorder/personality disorder/mood disorder, suboptimal following recent confinement of [facility] -seen by psychiatry-on Depakote and oxcarbazepine for mood stabilization. Currently 1:1 -Per psychiatry, 303 hearing will need to be pursued on Sunday if he is not medically clear or if psychiatric placement has not occurred before his 302 expires on 09/18/2022. DVT prophylaxis. Lovenox subcu Disposition: Needs psych clearance Admission and Anticipated Discharge Date Admission Date: September 14, 2022 Subjective Patient was seen and examined at bedside. He is awake, alert, restrained. He self extubated yesterday and has been stable on NC. He denies any fever, chills, chest pain or shortness of breath or nausea or vomiting. Denies any pain or other issues. States he is good to go. Normal oral intake. Review of Systems Review of Systems: All systems reviewed & are unremarkable except as noted in Subjective Physical Exam Physical Exam: General: Lying comfortably in bed, not in distress, on NC HEENT: EOMI, THERESA, MMM Chest: Clear breath sounds bilaterally, no wheezes or crackles CVS: Regular rate and rhythm, normal heart sounds, no murmur Abdomen: Soft, non tender, not distended, normal bowel sounds Neuro: Awake, alert, oriented, conversing well, non focal Extremities: No cyanosis, clubbing or edema Psych: Not agitated. Calm, cooperative, on restraints Results & Data Results & Data Vital Signs (Past 12 Hours) Vital Signs Temp Pulse Resp BP Pulse Ox O2 Del Method O2 Flow Rate 09/15/22 12:45 83 25 H 96 09/15/22 12:30 83 26 H 96 09/15/22 12:15 80 26 H 96 09/15/22 12:00 83 24 95 09/15/22 12:00 113/71 09/15/22 11:45 84 29 H 95 09/15/22 11:30 83 27 H 95 09/15/22 11:15 85 29 H 95 09/15/22 11:00 84 29 H 95 09/15/22 11:00 118/68 09/15/22 10:45 87 27 H 94 09/15/22 10:30 87 26 H 94 09/15/22 10:15 90 35 H 93 09/15/22 10:00 96 H 31 H 94 09/15/22 10:00 127/71 09/15/22 09:45 93 H 28 H 95 09/15/22 09:30 95 H 30 H 95 09/15/22 09:15 96 H 30 H 94 09/15/22 09:15 125/73 09/15/22 09:00 96 H 32 H 95 09/15/22 09:00 126/69 09/15/22 08:45 98 H 26 H 94 09/15/22 08:45 128/70 09/15/22 08:30 99 H 33 H 93 Nasal Cannula 4 09/15/22 08:30 128/71 09/15/22 08:00 37.4 C 09/15/22 08:15 101 H 34 H 94 09/15/22 08:15 127/68 09/15/22 08:00 100 H 30 H 94 09/15/22 08:00 127/69 09/15/22 07:45 102 H 34 H 94 09/15/22 07:45 125/69 09/15/22 07:30 104 H 34 H 92 09/15/22 07:30 124/67 0505 07:15 104 H 33 H 94 0505 07:15 129/70 05 07:00 103 H 41 H 94 05 07:00 129/68 05 06:45 105 H 32 H 94 05 06:45 125/62 0505 06:31 106 H 29 H 94 05 06:31 129/69 05 06:30 105 H 28 H 94 0505 06:15 105 H 29 H 93 05 06:15 93/63 L 05 06:00 107 H 35 H 95 05 06:00 126/61 09/15/22 05:45 107 H 33 H 95 05 05:45 129/60 09/15/22 05:30 104 H 36 H 95 05 05:15 116/56 L 0505 05:15 107 H 36 H 94 05 05:00 113 H 18 92 05 05:00 112/55 L 0505 04:47 122 H 32 H 92 09/15/22 04:47 124/68 05 04:31 104/73 0505 04:31 124 H 36 H 91 09/15/22 04:15 115 H 35 H 91 09/15/22 04:15 116/75 0505 04:00 112 H 28 H 92 09/15/22 04:00 113/59 L 05 03:45 116 H 29 H 92 0505 03:45 108/56 L 0505 03:30 108/43 L 0505 03:30 120 H 37 H 93 0505 03:15 107/51 L 0505 03:15 113 H 35 H 92 0505 03:00 120 H 36 H 92 0505 03:00 118/53 L 0505 02:46 122 H 20 92 0505 02:46 133/56 L 0505 02:30 117/59 L 0505 02:30 115 H 32 H 90 05/05/23 02:15 130/64 09/15/22 02:15 113 H 42 H 88 L 09/15/22 02:01 132/53 L 09/15/22 02:01 115 H 26 H 91 09/15/22 02:00 119 H 32 H 92 09/15/22 01:45 105 H 28 H 91 09/15/22 01:45 121/68 09/15/22 01:30 112 H 23 92 09/15/22 01:30 104/65 09/15/22 01:16 118 H 34 H 92 09/15/22 01:16 105/71 09/15/22 01:01 100/55 L 09/15/22 01:01 112 H 32 H 91 09/15/22 01:00 114 H 30 H 90 Laboratory Results Short CBC 09/15/22 Range/Units 05:28 WBC 9.71 (4.8-10.8) K/ul Hgb 11.2 L (14.0-18.0) g/dl Hct 32.6 L (42.0-52.0) % Plt Count 195 (130-400) K/uL BMP 09/15/22 05:28 Sodium 138 Potassium 3.1 L Chloride 104 Carbon Dioxide 24 BUN 12 Creatinine 1.03 Glucose 138 H Calcium 8.3 L Medications Administered Current Inpatient Medications Clonazepam (Clonazepam 1 Mg Tab) 1 mg PO DAILY CALI Stop: 10/15/22 08:59 Last Admin: 09/15/22 08:05 Dose: 1 mg Diphenhydramine HCl (Diphenhydramine Capsule 25 Mg Cap) 50 mg PO HS PRN PRN Reason: Anxiety/Insomnia Stop: 10/15/22 20:59 Divalproex Sodium (Divalproex Extended Release 500 Mg Tab) 500 mg PO DAILY CALI Stop: 10/15/22 08:59 Last Admin: 09/15/22 08:04 Dose: 500 mg Haloperidol (Haloperidol 5 Mg Tab) 5 mg PO Q12H PRN PRN Reason: Agitation Stop: 10/15/22 01:55 Potassium Phosphate 40 mmol/ (Sodium Chloride) 1,013.3333 mls @ 100 mls/hr IV ONE ONE Stop: 09/15/22 17:22 Last Admin: 09/15/22 08:04 Dose: 100 mls/hr Lorazepam (Lorazepam 2 Mg/1 Ml Vial) 0.5 mg IV Q8H PRN PRN Reason: Anxiety/Agitation Stop: 10/14/22 23:48 Last Admin: 09/15/22 00:59 Dose: 0.5 mg Oxcarbazepine (Oxcarbazepine 150 Mg Tablet) 750 mg PO BID CALI Stop: 10/14/22 23:44 Last Admin: 09/15/22 08:04 Dose: 750 mg
[2022-09-15] MEDS: ACETAMINOPHEN 500 MG TAB PO PRN (20:16)
[2022-09-16] MEDS: diphenhydrAMINE Capsule 25 MG CAP PO PRN (00:25)
[2022-09-16 00:32] LABS: Rapid Plasma Reagin Nonreactive (Nonreactive)
[2022-09-16] MEDS: haloperidoL 5 MG TAB PO PRN (02:09)
[2022-09-16 04:49] LABS: Basophils # (auto) 0.03 K/uL (0-0.2); Basophils % (auto) 0.3 %; Eosinophils # (auto) 0.01 K/uL (0-0.50); Eosinophils % (auto) 0.1 %; Hematocrit (blood only) 33.8 % (42.0-52.0); Hemoglobin 11.9 g/dl (14.0-18.0); Immature Granulocytes # (auto) 0.03 K/uL (0.01-0.20); Immature Granulocytes % (auto) 0.3 %; Lymphocytes # (auto) 1.91 K/uL (1.2-3.4); Lymphocytes % (auto) 20.9 %; Mean Corpuscular Hemoglobin 31.8 pg (25.0-34.0); Mean Corpuscular Hgb Conc 35.2 g/dL (32.0-36.0); Mean Corpuscular Volume 90.4 fL (80.0-100.0); Mean Platelet Volume 8.9 fL (9.4-12.4); Monocytes # (auto) 1.76 K/uL (0.11-0.59); Monocytes % (auto) 19.2 %; Neutrophils # (auto) 5.42 K/uL (1.40-6.50); Neutrophils % (auto) 59.2 %; Platelet Count 189 K/uL (130-400); RDW Coefficient of Variation 12.2 % (11.5-14.5); RDW Standard Deviation 40.4 fL (36.4-46.3); Red Blood Count 3.74 M/uL (4.70-6.10); White Blood Count 9.16 K/ul (4.8-10.8)
[2022-09-16 05:11] LABS: BUN Creatinine Ratio 8.1 (10-20); Calcium 8.8 mg/dl (8.6-10.3); Creatinine Clr Calc Pharmacy 127.6 ml/min; Est GFR (African American) 128.2 ml/min; Est GFR (Non-African American) 110.6 ml/min; Magnesium 2.2 mg/dl (1.7-2.4); Phosphorus 3.7 mg/dl (2.5-4.9); Potassium 3.6 mmol/L (3.5-5.1)
[2022-09-16] MEDS: ACETAMINOPHEN 500 MG TAB PO PRN (07:38)
[2022-09-16] MEDS: clonazePAM 1 MG TAB PO SCH (09:08)
[2022-09-16] MEDS: DIVALPROEX EXTENDED RELEASE 500 MG TAB PO SCH (09:09)
[2022-09-16] MEDS: OXcarbazepine 150 MG TABLET PO SCH ×2 (09:09→20:19)
--- NOTE | 2022-09-16 11:39 | Hospitalist Progress Note ---
Date of Service September 16, 2022 Assessment & Plan (1) Seizure: (2) Schizoaffective disorder: (3) Hypokalemia: (4) Hypophosphatemia: Plan Recurrent seizures status post intubation for airway protection- Possibly from high-dose Zyprexa administration -Patient self extubated 09/14/22 and has been stable on NC, now saturating well in room air -Seen by neurology-recommends noted. Currently on Depakote and oxcarbazepine, also for his psychiatric issues EEG: Potentially abnormal awake/drowsy EEG with evidence of left parietal slowing and sharps. Would correlate with brain MRI. No evidence of persistent seizure activity. MRI brain 1. No acute infarct or intracranial hemorrhage. 2. The temporal lobes are symmetric. 3. A few punctate foci of T2 hyperintensity seen within the periventricular and subcortical white matter of the supratentorial brain. These are nonspecific but greater than expected for age. Therefore, this could represent early microvascular ischemic change, migraines, Lyme's disease, or less likely a demyelinating disease or vasculitis. Hypokalemia-resolved Hypophosphatemia-resolved Transient atrial flutter secondary to illness- Patient NSR post Cardizem administration at the ER. Echo reviewed. Currently in sinus rhythm Elevated CK- only mildly elevated. patient is on restraints but not agitated anymore. monitor. Schizoaffective disorder/personality disorder/mood disorder, suboptimal fol lowing recent confinement of [facility] -seen by psychiatry-on Depakote and oxcarbazepine for mood stabilization. Currently 1:1 -Per psychiatry, 303 hearing will need to be pursued on Sunday if he is not medically clear or if psychiatric placement has not occurred before his 302 expires on 09/18/2022. DVT prophylaxis. Lovenox subcu Disposition: Transfer to [facility]. Needs psych clearance for discharge. Medically stable at this point Admission and Anticipated Discharge Date Admission Date: September 14, 2022 Subjective Patient was seen and examined at bedside. Awake alert, on room air, still in restraints, conversing well but talking irrelevant stuff. He denies any ongoing issues. No fever, chills, chest pain or shortness of breath nausea or vomiting. Review of Systems Review of Systems: All systems reviewed & are unremarkable except as noted in Subjective Physical Exam Physical Exam: General: Lying comfortably in bed, not in distress, on room air HEENT: EOMI, THERESA, MMM Chest: Clear breath sounds bilaterally, no wheezes or crackles CVS: Regular rate and rhythm, normal heart sounds, no murmur Abdomen: Soft, non tender, not distended, normal bowel sounds Neuro: Awake, alert, oriented, conversing well, non focal Extremities: No cyanosis, clubbing or edema Psych: Not agitated. Calm, cooperative, on restraints Results & Data Results & Data Vital Signs (Past 12 Hours) Vital Signs Pulse Resp BP Pulse Ox O2 Del Method 09/16/22 11:00 72 20 123/86 90 Room Air 09/16/22 10:00 77 19 125/80 93 Room Air 09/16/22 09:00 80 20 129/81 93 Room Air 09/16/22 08:00 80 09/16/22 08:00 81 18 134/86 91 Room Air 09/16/22 07:00 74 20 134/92 90 Room Air 09/16/22 04:00 75 19 95 09/16/22 04:00 126/83 09/16/22 03:00 117/81 09/16/22 03:00 72 16 96 09/16/22 02:00 75 25 H 94 09/16/22 02:00 128/79 09/16/22 01:00 124/82 09/16/22 01:00 78 20 96 09/16/22 00:00 82 24 95 09/16/22 00:00 130/89 09/16/22 00:00 80 Laboratory Results Short CBC 09/16/22 Range/Units 04:38 WBC 9.16 (4.8-10.8) K/ul Hgb 11.9 L (14.0-18.0) g/dl Hct 33.8 L (42.0-52.0) % Plt Count 189 (130-400) K/uL BMP 09/16/22 04:38 Sodium 138 Potassium 3.6 Chloride 104 Carbon Dioxide 29 BUN 6 Creatinine 0.74 Glucose 110 H Calcium 8.8 Cardiac Enzymes 09/16/22 Range/Units 04:38 Total Creatine Kinase 1425 H (30-223) U/L Medications Administered Current Inpatient Medications Acetaminophen (Acetaminophen 500 Mg Tab) 500 mg PO Q6H PRN PRN Reason: pain/fever Stop: 10/15/22 19:55 Last Admin: 09/16/22 07:38 Dose: 500 mg Clonazepam (Clonazepam 1 Mg Tab) 1 mg PO DAILY CALI Stop: 10/15/22 08:59 Last Admin: 09/16/22 09:08 Dose: 1 mg Diphenhydramine HCl (Diphenhydramine Capsule 25 Mg Cap) 50 mg PO HS PRN PRN Reason: Anxiety/Insomnia Stop: 10/15/22 20:59 Last Admin: 09/16/22 00:25 Dose: 50 mg Divalproex Sodium (Divalproex Extended Release 500 Mg Tab) 500 mg PO DAILY CALI Stop: 10/15/22 08:59 Last Admin: 09/16/22 09:09 Dose: 500 mg Haloperidol (Haloperidol 5 Mg Tab) 5 mg PO Q12H PRN PRN Reason: Agitation Stop: 10/15/22 01:55 Last Admin: 09/16/22 02:09 Dose: 5 mg Ibuprofen (Ibuprofen 200 Mg Tab) 400 mg PO TID PRN PRN Reason: pain, headache Stop: 10/16/22 11:47 Lorazepam (Lorazepam 2 Mg/1 Ml Vial) 0.5 mg IV Q8H PRN PRN Reason: Anxiety/Agitation Stop: 10/14/22 23:48 Last Admin: 09/15/22 00:59 Dose: 0.5 mg Oxcarbazepine (Oxcarbazepine 150 Mg Tablet) 750 mg PO BID [facility] Stop: 10/14/22 23:44 Last Admin: 09/16/22 09:09 Dose: 750 mg
[2022-09-16] MEDS ORDERED: IBUPROFEN 200 MG TAB PO ONE (11:51)
[2022-09-16] MEDS ORDERED: ONDANSETRON INJ 2 MG/ML 2 ML VIAL IV PRN (12:05)
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
[2022-09-16] MEDS: LORazepam 2 MG/1 ML VIAL IV PRN (21:52)
[2022-09-17] MEDS ORDERED: HALOPERIDOL LACTATE 5 MG/ML 1 ML VIAL IM STA ×2 (00:05→12:29)
[2022-09-17] MEDS ORDERED: LORazepam 2 MG/1 ML VIAL IV PRN ×2 (00:07→00:18)
[2022-09-17] MEDS ORDERED: LORazepam 2 MG/1 ML VIAL IV STA ×2 (00:14→00:47)
[2022-09-17] MEDS ORDERED: VALPROATE SOD 500 MG in DEXTROSE 5% 50 ML IV ONE (00:45)
[2022-09-17] MEDS: LORazepam 2 MG/1 ML VIAL IV PRN ×5 (05:12→21:25)
[2022-09-17 07:10] LABS: Basophils # (auto) 0.03 K/uL (0-0.2); Basophils % (auto) 0.4 %; Eosinophils # (auto) 0.01 K/uL (0-0.50); Eosinophils % (auto) 0.1 %; Hematocrit (blood only) 37.6 % (42.0-52.0); Hemoglobin 13.3 g/dl (14.0-18.0); Immature Granulocytes # (auto) 0.04 K/uL (0.01-0.20); Immature Granulocytes % (auto) 0.5 %; Lymphocytes # (auto) 1.49 K/uL (1.2-3.4); Lymphocytes % (auto) 19.7 %; Mean Corpuscular Hemoglobin 31.6 pg (25.0-34.0); Mean Corpuscular Hgb Conc 35.4 g/dL (32.0-36.0); Mean Corpuscular Volume 89.3 fL (80.0-100.0); Mean Platelet Volume 9.2 fL (9.4-12.4); Monocytes # (auto) 0.99 K/uL (0.11-0.59); Monocytes % (auto) 13.1 %; Neutrophils # (auto) 5.01 K/uL (1.40-6.50); Neutrophils % (auto) 66.2 %; Platelet Count 268 K/uL (130-400); RDW Standard Deviation 38.5 fL (36.4-46.3); Red Blood Count 4.21 M/uL (4.70-6.10); White Blood Count 7.57 K/ul (4.8-10.8)
[2022-09-17 07:30] LABS: BUN Creatinine Ratio 15.9 (10-20); Calcium 9.3 mg/dl (8.6-10.3); Creatinine Clr Calc Pharmacy 125.1 ml/min; Est GFR (Non-African American) 113.8 ml/min; Magnesium 2.1 mg/dl (1.7-2.4); Phosphorus 3.5 mg/dl (2.5-4.9); Potassium 3.6 mmol/L (3.5-5.1)
[2022-09-17] MEDS: clonazePAM 1 MG TAB PO SCH (09:49)
[2022-09-17] MEDS: DIVALPROEX EXTENDED RELEASE 500 MG TAB PO SCH (09:49)
[2022-09-17] MEDS: OXcarbazepine 150 MG TABLET PO SCH ×2 (10:42→21:24)
--- NOTE | 2022-09-17 11:16 | Hospitalist Progress Note ---
Date of Service September 17, 2022 Assessment & Plan (1) Seizure: (2) Schizoaffective disorder: (3) Hypokalemia: (4) Hypophosphatemia: Plan Schizoaffective disorder/personality disorder/mood disorder, suboptimal following recent confinement of [facility] [address] -seen by psychiatry-on Depakote and oxcarbazepine for mood stabilization. Currently 1:1 -Per psychiatry, 303 hearing will need to be pursued on Sunday if he is not medically clear or if psychiatric placement has not occurred before his 302 expires on 09/18/2022. Recurrent seizures status post intubation for airway protection- Possibly from high-dose Zyprexa administration -Patient self extubated 09/14/22 and has been stable on NC, now saturating well in room air -Seen by neurology-recommends noted. Currently on Depakote and oxcarbazepine, also for his psychiatric issues EEG: Potentially abnormal awake/drowsy EEG with evidence of left parietal slowing and sharps. Would correlate with brain MRI. No evidence of persistent seizure activity. MRI brain 1. No acute infarct or intracranial hemorrhage. 2. The temporal lobes are symmetric. 3. A few punctate foci of T2 hyperintensity seen within the periventricular and subcortical white matter of the supratentorial brain. These are nonspecific but greater than expected for age. Therefore, this could represent early microvascular ischemic change, migraines, Lyme's disease, or less likely a demyelinating disease or vasculitis. Hypokalemia-resolved Hypophosphatemia-resolved Transient atrial flutter secondary to illness- Patient NSR post Cardizem administration at the ER. Echo reviewed. Currently in sinus rhythm Elevated CK- only mildly elevated and already downtrending. DVT prophylaxis. Lovenox subcu Disposition: Needs admission to inpatient psych facility- bed search underway. C urrently, patient does not have decision making capacity to leave AMA. Admission and Anticipated Discharge Date Admission Date: September 14, 2022 Subjective Patient was seen and examined at bedside. He is awake but very confused today. Constantly muttering irrelevant words. He is not coherent and is not answering any questions appropriately. Apparently he pulled out lang yesterday. Review of Systems Review of Systems: Unobtainable due to mental health condition Physical Exam Physical Exam: General: Disheveled appearance, not in distress, on room air Chest: Clear breath sounds bilaterally, no wheezes or crackles CVS: Regular rate and rhythm, normal heart sounds, no murmur Abdomen: Soft, non tender, not distended, normal bowel sounds Neuro: Awake, confused, disoriented, not answering questions appropriately Extremities: No cyanosis, clubbing or edema Psych: Uncooperative, on restraints Results & Data Results & Data Vital Signs (Past 12 Hours) Vital Signs O2 Del Method 09/17/22 08:00 Room Air Laboratory Results Short CBC 09/17/22 Range/Units 06:44 WBC 7.57 (4.8-10.8) K/ul Hgb 13.3 L (14.0-18.0) g/dl Hct 37.6 L (42.0-52.0) % Plt Count 268 (130-400) K/uL BMP 09/17/22 06:44 Sodium 142 Potassium 3.6 Chloride 107 Carbon Dioxide 25 BUN 11 Creatinine 0.69 Glucose 101 H Calcium 9.3 Cardiac Enzymes 09/17/22 Range/Units 06:44 Total Creatine Kinase 950 H (30-223) U/L Medications Administered Current Inpatient Medications Acetaminophen (Acetaminophen 500 Mg Tab) 500 mg PO Q6H PRN PRN Reason: pain/fever Stop: 10/15/22 19:55 Last Admin: 09/16/22 07:38 Dose: 500 mg Clonazepam (Clonazepam 1 Mg Tab) 1 mg PO DAILY [facility] Stop: 10/15/22 08:59 Last Admin: 09/17/22 09:49 Dose: 1 mg Diphenhydramine HCl (Diphenhydramine Capsule 25 Mg Cap) 50 mg PO HS PRN PRN Reason: Anxiety/Insomnia Stop: 10/15/22 20:59 Last Admin: 09/16/22 00:25 Dose: 50 mg Divalproex Sodium (Divalproex Extended Release 500 Mg Tab) 500 mg PO DAILY [facility] Stop: 10/15/22 08:59 Last Admin: 09/17/22 09:49 Dose: 500 mg Haloperidol (Haloperidol 5 Mg Tab) 5 mg PO Q12H PRN PRN Reason: Agitation Stop: 10/15/22 01:55 Last Admin: 09/16/22 02:09 Dose: 5 mg Ibuprofen (Ibuprofen 200 Mg Tab) 400 mg PO TID PRN PRN Reason: pain, headache Stop: 10/16/22 11:47 Lorazepam (Lorazepam 2 Mg/1 Ml Vial) 1 mg IV Q3H PRN PRN Reason: Anxiety/Agitation Stop: 10/17/22 00:17 Last Admin: 09/17/22 08:36 Dose: 1 mg Ondansetron HCl (Ondansetron Inj 2 Mg/Ml 2 Ml Vial) 4 mg IV Q6H PRN PRN Reason: Nausea And Vomiting Stop: 10/16/22 12:04 Oxcarbazepine (Oxcarbazepine 150 Mg Tablet) 750 mg PO BID [facility] Stop: 10/14/22 23:44 Last Admin: 09/17/22 10:42 Dose: 750 mg
[2022-09-17] MEDS: haloperidoL 5 MG TAB PO PRN (17:35)
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
[2022-09-17] MEDS: diphenhydrAMINE Capsule 25 MG CAP PO PRN (21:25)
[2022-09-18] MEDS: haloperidoL 5 MG TAB PO PRN (05:57)
[2022-09-18] MEDS: clonazePAM 1 MG TAB PO SCH (09:50)
[2022-09-18] MEDS: OXcarbazepine 150 MG TABLET PO SCH ×2 (09:50→20:38)
[2022-09-18] MEDS: DIVALPROEX EXTENDED RELEASE 500 MG TAB PO SCH (09:50)
[2022-09-18] MEDS: IBUPROFEN 200 MG TAB PO PRN ×2 (10:06→20:37)
--- NOTE | 2022-09-18 15:28 | Hospitalist Progress Note ---
Date of Service September 18, 2022 Assessment & Plan (1) Seizure: (2) Schizoaffective disorder: Plan: History of recent inpatient psychiatric care in [facility] (3) Hypokalemia: (4) Hypophosphatemia: Plan Schizoaffective disorder/personality disorder/mood disorder, suboptimal following recent confinement of [facility] Appreciate psychiatry input and recommendation-on Depakote and oxcarbazepine for mood stabilization. Currently 1:1 Per psychiatry, 303 hearing will need to be pursued on Sunday if he is not medically clear or if psychiatric placement has not occurred before his 302 expires on 09/18/2022. Patient is still requiring one-to-one sitter and not yet cleared medically Still requiring physical restraint to self current the lines Recurrent seizures status post intubation for airway protection- Possibly from high-dose Zyprexa administration Patient self extubated 09/14/22 and has been stable on NC, now saturating well in room air Seen by neurology-recommends noted. Currently on Depakote and oxcarbazepine, also for his psychiatric issues EEG: Potentially abnormal awake/drowsy EEG with evidence of left parietal slowing and sharps. Would correlate with brain MRI. No evidence of persistent seizure activity. MRI brain 1. No acute infarct or intracranial hemorrhage. 2. The temporal lobes are symmetric. 3. A few punctate foci of T2 hyperintensity seen within the periventricular and subcortical white matter of the supratentorial brain. These are nonspecific but greater than expected for age. Therefore, this could represent early microvascular ischemic change, migraines, Lyme's disease, or less likely a demyelinating disease or vasculitis. No more seizures The patient remains stable on current medications Electrolyte imbalance Hypokalemia-resolved Hypophosphatemia-resolved Transient atrial flutter secondary to illness- Patient NSR post Cardizem administration at the ER. Echo reviewed-sinus rhythm in 80s, was on a mechanical ventilation during study, mild concentric LVH, apex was not well visualized otherwise LV wall motion is normal, LV was hyperdynamic and the EF was more than 70%. There is no significant tricuspid regurgitation and right ventricle is normal in size and function. Currently in sinus rhythm Elevated CK- only mildly elevated and already downtrending. DVT prophylaxis. Lovenox subcu Disposition: Needs admission to inpatient psych facility- bed search underway. Currently, Patient does not have decision making capacity to leave AMA. Admission and Anticipated Discharge Date Admission Date: September 14, 2022 Subjective 09/18/2022 The patient was seen and examined in medical floor He is very weak and lethargic Wanted to sleep during examination and denies any significant symptoms except weakness Still requiring one-to-one sitter Review of Systems Review of Systems: All systems reviewed and are unremarkable except as noted below Physical Exam Physical Exam: Lying in bed comfortably Constitutional: + ill appearing and average body habitus Eyes: PERRL, conjunctivae normal, anicteric sclerae ENMT: external ear and nose normal, oropharynx normal Neck: trachea midline, no thyromegaly Respiratory: no respiratory distress Auscultation: lungs clear to auscultation bilaterally Cardiovascular: Rate/Rhythm: regular rate and regular rhythm; not tachycardic Extremities: no edema Gastrointestinal (Abdomen): Inspection/Auscultation: normal bowel sounds; abdomen not distended Percussion/Palpation: abdomen soft; abdomen nontender Musculoskeletal: No acute arthritis involving any joint Neurologic: Alert and awake. Generally weak. Moves all extremities Lymphatic: no cervical or axillary lymphadenopathy Results & Data Results & Data Vital Signs (Past 12 Hours) Vital Signs Temp Pulse Resp BP Pulse Ox O2 Del Method 09/18/22 08:47 36.9 C 76 20 132/78 97 Room Air Medications Administered Current Inpatient Medications Acetaminophen (Acetaminophen 500 Mg Tab) 500 mg PO Q6H PRN PRN Reason: pain/fever Stop: 10/15/22 19:55 Last Admin: 09/16/22 07:38 Dose: 500 mg Clonazepam (Clonazepam 1 Mg Tab) 1 mg PO DAILY CALI Stop: 10/15/22 08:59 Last Admin: 09/18/22 09:50 Dose: 1 mg Diphenhydramine HCl (Diphenhydramine Capsule 25 Mg Cap) 50 mg PO HS PRN PRN Reason: Anxiety/Insomnia Stop: 10/15/22 20:59 Last Admin: 09/17/22 21:25 Dose: 50 mg Divalproex Sodium (Divalproex Extended Release 500 Mg Tab) 500 mg PO DAILY CALI Stop: 10/15/22 08:59 Last Admin: 09/18/22 09:50 Dose: 500 mg Haloperidol (Haloperidol 5 Mg Tab) 5 mg PO Q12H PRN PRN Reason: Agitation Stop: 10/15/22 01:55 Last Admin: 09/18/22 05:57 Dose: 5 mg Ibuprofen (Ibuprofen 200 Mg Tab) 400 mg PO TID PRN PRN Reason: pain, headache Stop: 10/16/22 11:47 Last Admin: 09/18/22 10:06 Dose: 400 mg Lorazepam (Lorazepam 2 Mg/1 Ml Vial) 1 mg IV Q3H PRN PRN Reason: Anxiety/Agitation Stop: 10/17/22 00:17 Last Admin: 09/17/22 21:25 Dose: 1 mg Ondansetron HCl (Ondansetron Inj 2 Mg/Ml 2 Ml Vial) 4 mg IV Q6H PRN PRN Reason: Nausea And Vomiting Stop: 10/16/22 12:04 Oxcarbazepine (Oxcarbazepine 150 Mg Tablet) 750 mg PO BID CALI Stop: 10/14/22 23:44 Last Admin: 09/18/22 09:50 Dose: 750 mg
[2022-09-18] MEDS: diphenhydrAMINE Capsule 25 MG CAP PO PRN (20:38)
[2022-09-19] MEDS: haloperidoL 5 MG TAB PO PRN (05:15)
[2022-09-19] MEDS: IBUPROFEN 200 MG TAB PO PRN (05:15)
[2022-09-19] MEDS: OXcarbazepine 150 MG TABLET PO SCH ×2 (09:10→20:57)
[2022-09-19] MEDS: DIVALPROEX EXTENDED RELEASE 500 MG TAB PO SCH (09:10)
[2022-09-19] MEDS: clonazePAM 1 MG TAB PO SCH (09:11)
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
--- NOTE | 2022-09-19 11:07 | Psychiatric Progress Note ---
Date of Service September 19, 2022 Impression / Recommendations Impression 47 y/o man with schizoaffective disorder, bipolar type who's been off his medication and who recently had seizures in the ED in the context of having been off his high-dose anticonvulsants and benzodiazepine and having been administered olanzapine. 09/19/2022: Clearly a little better today. He makes an effort to interact, though he remains highly distracted. If not continually redirected, his speech rapidly meanders off into gibberish. He is oriented to person, "a room" at "[facility]" in "[facility]" (and, when pressed, "[place]") but not to town. He is "pretty sure the year is 2022" and is less confident that "it's May?". He has "no idea" about the day or date. He says he "slept OK last night" (though I can't confirm that). He looks anxious or frightened but denies any such feelings. He says he doesn't remember ever meeting me before. 09/18/2022: A hearing was held today for a section 303 petition for involuntary admission. This was granted. Day by day appears a bit less confused. His speech has gone from "word salad" to nearly incomprehensible to, now, rambling and difficult to follow but occasionally making some sense. He has shown some recall of recent events (such as having flung his food tray at a nurse yesterday). He is back on what is thought to have been his [id number] dose of oxcarbazepine (1,500 mg/day) but is on only a fraction (500 mg/day) of his apparent [employer]ATEGIST dose of venlafaxine ER (3,000 mg/day). 09/17/2022: Behavior has remained disorganized and unpredictable - earlier today his flung his meal tray at a nurse. He has continued to require frequent medication and physical restraint for safety. However, he's a bit less intensely psychotic today and his speech occasionally makes some sense. For example, he told me he was tired and that it's hard to sleep in the hospital. He seems to have a sense that he's not really following what's going on around him and to be making some effort to focus. 09/16/2022: Of some concern is reported intolerance to the phenothiazine antipsychotic chlorpromazine (and, in the absence of information about the nature of the intolerance and by extension, possibly to the others), aripiprazole (and thus possibly also to brexpiprazole), quetiapine (and possibly therefore to asenapine as well), and risperidone (and by extension possibly to paliperidone as well). It should be noted that he has a listed (but poorly-documented) intolerance to diphenhydramine, which suggests the need for much caution in using medications to which he might possibly have actual allergic reactions). At present he appears very psychotic. This could represent a degree of postictal/periictal delirium as well as untreated psychosis and priscila due to his schizoaffective disorder. (1) Schizoaffective disorder, bipolar type: Plan 09/19/2022: By history, pt has required much higher divalproex ER dose (3,000 mg/day), along with oxcarbazepine, to suppress priscila and seizures. If he can't tolerate whole divalproex ER tablets, divalproex or valproic acid could be used with a target dose of 2,000 mg/day. In either case, dose should be titrated to a target blood level in the range of 85-125 g/mL. 09/18/2022: Pt is now subject to a section 303 involuntary commitment. He must remain in the hospital on 1:1 observation until he's determined to be medically stable. At that time, a psychiatric bed search will need to be undertaken. Consider more aggressive titration of divalproex. 09/17/2022: Continue current medication regimen. Pt will require a hearing to enable contin [facility] hospitalization (because he certainly can't be discharged to home). 09/16/2022: Since pt clearly needs both antiepileptic and antimanic pharmacotherapy, it would seem eminently reasonable to resume the divalproex and oxcarbazepine he'd previously been taking. I agree with your decision not to resume the 3,000mg/day divalproex ER and 1,200 mg/day oxcarbazepine doses right away, but would suggest titrating as aggressively as tolerated. Note that divalproex ER is not equally bioavailable as IR divalproex. If it's necessary to crush tablets or use any dosage form other than ER, total dose may need to be 20-25% lower than with the ER form. With divalproex, the target antimanic range of blood level is 85-125 g/mL (higher than the typical therapeutic range for seizure control of 50-100 g/mL) and dose should be titrated based on blood level. For oxcarbazepine there is fairly scant published data about therapeutic blood level for priscila, but for carbamazepine it's fairly clear that the target range is the same as for seizure control, so oxcarbazepine dose should be titrated to usual antiepileptic blood level. Pt was on fairly high-dose (4 mg/day) clonazepam until some unknown time prior to admission, and it's possible that some of the waxing and waning cognition we're seeing could represent a degree of benzodiazepine withdrawal. It's also obviously antiepileptic and wouldn't require titration via blood level, so I recommend resuming 2 mg BID. If pt won't accept oral medication, clonazepam is essentially equipotent with lorazepam, though doses of the latter would need to be divided due to shorter half-life (e.g., 1 mg QID). If pt requires parenteral antipsychotic medication due to potentially dangerous behavior appearing to arise from psychosis, haloperidol would appear to be the safest option (administeredwithoutdiphenhydramine due to the reported intolerance). This could be given as haloperidol 5 mg IM and lorazepam 2 mg IM q8 hr PRN psychosis. An administrative decision has previously been made that pt is not a candidate for admission to the psychiatric unit at [facility]. He certainly will require psychiatric hospitalization. A bed search is underway, but if he is still here on Sunday he will need a commitment hearing if he is to remain in the hospital involuntarily any longer. With respect to his involuntary status, it is my opinion that at present Mr. Becker does not have the capacity to make rational and informed decisions about healthcare so, even if he were to agree to remain in the hospital, we would not be able to use such agreement as informed consent and will continue to need to rely on the legal mechanisms for involuntary admission. Suicide Risk Level Suicide Risk Level: High-Imminent (1-on-1 observation) (risk is due to disorganized behavior rather than suicidality as such) Risk Factors Assessment Male: Yes : Yes Do You Have Access To A Gun?: No Health Problems: Yes Mental Health Diagnoses: Yes Previous Psychiatric Hospitalization: Yes Protective Factors Assessment Responsible for Young Children: No Employed: No Stable Relationships: No Interval History Identifying Information ROGER BECKER is a 47-year-old male with a history of schizoaffective disorder, admitted on 09/14/2022 for seizures. Consult is by the hospitalist service for psychosis. Chief Complaint "Well...". Subjective Subjective Patient was seen & assessed and interval progress reviewed in a multi disciplinary team meeting with psychiatric liaison nursing and social work. For details, see the "Impression" section below. Physical Exam Psychiatric Orientation: alert, oriented to place ("[facility]" and "[facility]" but not to town) and cooperative; + not oriented to person and + not oriented to time ("September 2022" but not day or date) Apperance: + disheveled Eye Contact: + poor eye contact Motor Behavior: + tremor Speech: no pressured speech and no loud speech Affect: + constricted affect Mood: + dysphoric mood Thought Process: + looseness of associations and + clanging Thought Content: + paranoid Suicidal Thoughts: denies suicidal thoughts, denies suicidal plan and denies suicidal intent Homicidal Thoughts: denies homicidal thoughts Hallucinations: + auditory hallucinations (based on observed behavior) and + visual hallucinations (based on observed behavior) Cognition: + recent memory not intact, + remote memory not intact, + attention not intact and + language not intact Estimated Intelligence: average estimated intelligence Insight: + severely impaired insight Judgment: + severely impaired judgement Vital Signs (Past 24 Hours) Last Vital Signs Temp 36.9 C 09/19/22 09:16 Pulse 79 09/19/22 09:16 Resp 18 09/19/22 09:16 BP 130/77 09/19/22 09:16 Pulse Ox 97 09/19/22 09:16 O2 Del Method Room Air 09/19/22 09:16 O2 Flow Rate 2 09/15/22 21:48 FiO2 30 09/14/22 22:35 Results & Data ([facility]) Current Inpatient Medications Current Inpatient Medications: Current Inpatient Medications Acetaminophen (Acetaminophen 500 Mg Tab) 500 mg PO Q6H PRN PRN Reason: pain/fever Stop: 10/15/22 19:55 Last Admin: 09/16/22 07:38 Dose: 500 mg Clonazepam (Clonazepam 1 Mg Tab) 1 mg PO DAILY CALI Stop: 10/15/22 08:59 Last Admin: 09/19/22 09:11 Dose: 1 mg Diphenhydramine HCl (Diphenhydramine Capsule 25 Mg Cap) 50 mg PO HS PRN PRN Reason: Anxiety/Insomnia Stop: 10/15/22 20:59 Last Admin: 09/18/22 20:38 Dose: 50 mg Divalproex Sodium (Divalproex Extended Release 500 Mg Tab) 500 mg PO DAILY CALI Stop: 10/15/22 08:59 Last Admin: 09/19/22 09:10 Dose: 500 mg Haloperidol (Haloperidol 5 Mg Tab) 5 mg PO Q12H PRN PRN Reason: Agitation Stop: 10/15/22 01:55 Last Admin: 09/19/22 05:15 Dose: 5 mg Ibuprofen (Ibuprofen 200 Mg Tab) 400 mg PO TID PRN PRN Reason: pain, headache Stop: 10/16/22 11:47 Last Admin: 09/19/22 05:15 Dose: 400 mg Lorazepam (Lorazepam 2 Mg/1 Ml Vial) 1 mg IV Q3H PRN PRN Reason: Anxiety/Agitation Stop: 10/17/22 00:17 Last Admin: 09/17/22 21:25 Dose: 1 mg Ondansetron HCl (Ondansetron Inj 2 Mg/Ml 2 Ml Vial) 4 mg IV Q6H PRN PRN Reason: Nausea And Vomiting Stop: 10/16/22 12:04 Oxcarbazepine (Oxcarbazepine 150 Mg Tablet) 750 mg PO BID CALI Stop: 10/14/22 23:44 Last Admin: 09/19/22 09:10 Dose: 750 mg Mental Health & Subst Abuse Tx Therapist Name of Therapist: Mat Ch @ [facility] (?) School Psychological Examiner Name of School Psychological Examiner: Joann santiago Dunlo [facility] Post Discharge Appointments Primary Care Physician Name Of Family Doctor/PCP: Lico De Jesus
--- NOTE | 2022-09-19 16:21 | Hospitalist Progress Note ---
Date of Service September 19, 2022 Assessment & Plan (1) Seizure: (2) Schizoaffective disorder: Plan: History of recent inpatient psychiatric care in [facility] (3) Hypokalemia: (4) Hypophosphatemia: Plan Schizoaffective disorder/personality disorder/mood disorder, suboptimal following recent confinement of [facility] Appreciate psychiatry input and recommendation-on Depakote and oxcarbazepine for mood stabilization. Currently 1:1 Per psychiatry, 303 hearing will need to be pursued on Sunday if he is not medically clear or if psychiatric placement has not occurred before his 302 expires on 09/18/2022. Patient is still requiring one-to-one sitter and not yet cleared medically Still requiring physical restraint to self current the lines Remains totally confused as of today and talking garbage Requiring one-to-one sitter and soft limb restraints Recurrent seizures status post intubation for airway protection- Possibly from high-dose Zyprexa administration Patient self extubated 09/14/22 and has been stable on NC, now saturating well in room air Seen by neurology-recommends noted. Currently on Depakote and oxcarbazepine, also for his psychiatric issues EEG: Potentially abnormal awake/drowsy EEG with evidence of left parietal slowing and sharps. Would correlate with brain MRI. No evidence of persistent seizure activity. MRI brain 1. No acute infarct or intracranial hemorrhage. 2. The temporal lobes are symmetric. 3. A few punctate foci of T2 hyperintensity seen within the periventricular and subcortical white matter of the supratentorial brain. These are nonspecific but greater than expected for age. Therefore, this could represent early microvascular ischemic change, migraines, Lyme's disease, or less likely a dem yelinating disease or vasculitis. No more seizures The patient remains stable on current medications Electrolyte imbalance Hypokalemia-resolved Hypophosphatemia-resolved Transient atrial flutter secondary to illness- Patient NSR post Cardizem administration at the ER. Echo reviewed-sinus rhythm in 80s, was on a mechanical ventilation during study, mild concentric LVH, apex was not well visualized otherwise LV wall motion is normal, LV was hyperdynamic and the EF was more than 70%. There is no significant tricuspid regurgitation and right ventricle is normal in size and function. Currently in sinus rhythm Elevated CK- only mildly elevated and already downtrending. DVT prophylaxis. Lovenox subcu Disposition: Needs admission to inpatient psych facility- bed search underway. Currently, Patient does not have decision making capacity to leave AMA Not yet cleared medically Admission and Anticipated Discharge Date Admission Date: September 14, 2022 Subjective 09/18/2022 The patient was seen and examined in medical floor He is very weak and lethargic Wanted to sleep during examination and denies any significant symptoms except weakness Still requiring one-to-one sitter 09/19/2022 The patient was seen and examined in medical floor Today he is totally confused and has been talking without making any sense Tries to pull out medical equipment and lines and requiring soft restraint and one-to-one sitter Review of Systems Review of Systems: All systems reviewed and are unremarkable except as noted below Physical Exam Physical Exam: Lying in bed comfortably Constitutional: + ill appearing and average body habitus Eyes: PERRL, conjunctivae normal, anicteric sclerae ENMT: external ear and nose normal, oropharynx normal Neck: trachea midline, no thyromegaly Respiratory: no respiratory distress Auscultation: lungs clear to auscultation bilaterally Cardiovascular: Rate/Rhythm: regular rate and regular rhythm; not tachycardic Extremities: no edema Gastrointestinal (Abdomen): Inspection/Auscultation: normal bowel sounds; abdomen not distended Percussion/Palpation: abdomen soft; abdomen nontender Neurologic: He has controllable shakes involving the lower extremities Lymphatic: no cervical or axillary lymphadenopathy Results & Data Results & Data Vital Signs (Past 12 Hours) Vital Signs Temp Pulse Resp BP Pulse Ox O2 Del Method 09/19/22 14:54 37.1 C 92 H 17 121/80 94 Room Air 09/19/22 09:16 36.9 C 79 18 130/77 97 Room Air Medications Administered Current Inpatient Medications Acetaminophen (Acetaminophen 500 Mg Tab) 500 mg PO Q6H PRN PRN Reason: pain/fever Stop: 10/15/22 19:55 Last Admin: 09/16/22 07:38 Dose: 500 mg Clonazepam (Clonazepam 1 Mg Tab) 1 mg PO DAILY CALI Stop: 10/15/22 08:59 Last Admin: 09/19/22 09:11 Dose: 1 mg Diphenhydramine HCl (Diphenhydramine Capsule 25 Mg Cap) 50 mg PO HS PRN PRN Reason: Anxiety/Insomnia Stop: 10/15/22 20:59 Last Admin: 09/18/22 20:38 Dose: 50 mg Divalproex Sodium (Divalproex Extended Release 500 Mg Tab) 500 mg PO DAILY [facility] Stop: 10/15/22 08:59 Last Admin: 09/19/22 09:10 Dose: 500 mg Haloperidol (Haloperidol 5 Mg Tab) 5 mg PO Q12H PRN PRN Reason: Agitation Stop: 10/15/22 01:55 Last Admin: 09/19/22 05:15 Dose: 5 mg Ibuprofen (Ibuprofen 200 Mg Tab) 400 mg PO TID PRN PRN Reason: pain, headache Stop: 10/16/22 11:47 Last Admin: 09/19/22 05:15 Dose: 400 mg Lorazepam (Lorazepam 2 Mg/1 Ml Vial) 1 mg IV Q3H PRN PRN Reason: Anxiety/Agitation Stop: 10/17/22 00:17 Last Admin: 09/17/22 21:25 Dose: 1 mg Ondansetron HCl (Ondansetron Inj 2 Mg/Ml 2 Ml Vial) 4 mg IV Q6H PRN PRN Reason: Nausea And Vomiting Stop: 10/16/22 12:04 Oxcarbazepine (Oxcarbazepine 150 Mg Tablet) 750 mg PO BID [facility] Stop: 10/14/22 23:44 Last Admin: 09/19/22 09:10 Dose: 750 mg
[2022-09-20] MEDS: LORazepam 2 MG/1 ML VIAL IV PRN ×2 (00:38→23:32)
[2022-09-20] MEDS: OXcarbazepine 150 MG TABLET PO SCH ×2 (08:54→20:04)
[2022-09-20] MEDS: DIVALPROEX EXTENDED RELEASE 500 MG TAB PO SCH (08:54)
[2022-09-20] MEDS: clonazePAM 1 MG TAB PO SCH (08:56)
[2022-09-20] MEDS: IBUPROFEN 200 MG TAB PO PRN (09:24)
--- NOTE | 2022-09-20 10:25 | Psychiatric Progress Note ---
Date of Service September 20, 2022 Impression / Recommendations Impression 47 y/o man with schizoaffective disorder, bipolar type who's been off his medication and who recently had seizures in the ED in the context of having been off his high-dose anticonvulsants and benzodiazepine and having been administered olanzapine. 09/20/2022: Pt presents as very considerably improved today. On approach he stands at bedside talking with his mother. He is fully-oriented to person, place, time, and situation. He is able to tell me he's "had a lot of trouble peeing; they took the catheter out [although it seems he pulled it last night] and I've just been dribbling, so they might have to put it back in". He says he's "been very confused and didn't know what was going on" but that he feels "more on top of things now". He has no recall of his several previous meetings with me but acknowledges "it's all been a blur". When left to his own devices, he does tend to wander off-topic and shows no sign of being likely to stop talking, but is easily redirected. 09/19/2022: Clearly a little better today. He makes an effort to interact, though he remains highly distracted. If not continually redirected, his speech rapidly meanders off into gibberish. He is oriented to person, "a room" at "[facility]" in "[facility]" (and, when pressed, "[place]") but not to town. He is "pretty sure the year is 2022" and is less confident that "it's May?". He has "no idea" about the day or date. He says he "slept OK last night" (though I can't confirm that). He looks anxious or frightened but denies any such feelings. He says he doesn't remember ever meeting me before. 09/18/2022: A hearing was held today for a section 303 petition for involuntary admission. This was granted. Day by day appears a bit less confused. His speech has gone from "word salad" to nearly incomprehensible to, now, rambling and difficult to follow but occasionally making some sense. He has shown some recall of recent events (such as having flung his food tray at a nurse yesterday). 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 09/17/2022: Behavior has remained disorganized and unpredictable - earlier today his flung his meal tray at a nurse. He has continued to require frequent medication and physical restraint for safety. However, he's a bit less intensely psychotic today and his speech occasionally makes some sense. For example, he told me he was tired and that it's hard to sleep in the hospital. He seems to have a sense that he's not really following what's going on around him and to be making some effort to focus. 09/16/2022: Of some concern is reported intolerance to the phenothiazine antipsychotic chlorpromazine (and, in the absence of information about the nature of the intolerance and by extension, possibly to the others), aripiprazole (and thus possibly also to brexpiprazole), quetiapine (and possibly therefore to asenapine as well), and risperidone (and by extension possibly to paliperidone as well). It should be noted that he has a listed (but poorly-documented) intolerance to diphenhydramine, which suggests the need for much caution in using medications to which he might possibly have actual allergic reactions). At present he appears very psychotic. This could represent a degree of postictal/periictal delirium as well as untreated psychosis and priscila due to his schizoaffective disorder. (1) Schizoaffective disorder, bipolar type: Plan 09/20/2022: Based on pt's presentation today, I can only recommend staying the current course in terms of psychiatric treatment. He will still require psychiatric admission once medically stable. 09/19/2022: By history, pt has required much higher divalproex ER dose (3,000 mg/day), along with oxcarbazepine, to suppress priscila and seizures. If he can't tolerate whole divalproex ER tablets, divalproex or valproic acid could be used with a target dose of 2,000 mg/day. In either case, dose should be titrated to a target blood level in the range of 85-125 g/mL. 09/18/2022: Pt is now subject to a section 303 involuntary commitment. He must remain in the hospital on 1:1 observation until he's determined to be medically stable. At that time, a psychiatric bed search will need to be undertaken. Consider more aggressive titration of divalproex. 09/17/2022: Continue current medication regimen. Pt will require a hearing to enable continuing hospitalization (because he certainly can't be discharged to home). 09/16/2022: Since pt clearly needs both antiepileptic and antimanic pharmacotherapy, it would seem eminently reasonable to resume the divalproex and oxcarbazepine he'd previously been taking. I agree with your decision not to resume the 3,000mg/day divalproex ER and 1,200 mg/day oxcarbazepine doses right away, but would suggest titrating as aggressively as tolerated. Note that divalproex ER is not equally bioavailable as IR divalproex. If it's necessary to crush tablets or use any dosage form other than ER, total dose may need to be 20-25% lower than with the ER form. With divalproex, the target antimanic range of blood level is 85-125 g/mL (higher than the typical therapeutic range for seizure control of 50-100 g/mL) and dose should be titrated based on blood level. For oxcarbazepine there is fairly scant published data about therapeutic blood level for priscila, but for carbamazepine it's fairly clear that the target range is the same as for seizure control, so oxcarbazepine dose should be titrated to usual antiepileptic blood level. Pt was on fairly high-dose (4 mg/day) clonazepam until some unknown time prior to admission, and it's possible that some of the waxing and waning cognition we're seeing could represent a degree of benzodiazepine withdrawal. It's also obviously antiepileptic and wouldn't require titration via blood level, so I recommend resuming 2 mg BID. If pt won't accept oral medication, clonazepam is essentially equipotent with lorazepam, though doses of the latter would need to be divided due to shorter half-life (e.g., 1 mg QID). If pt requires parenteral antipsychotic medication due to potentially dangerous behavior appearing to arise from psychosis, haloperidol would appear to be the safest option (administeredwithoutdiphenhydramine due to the reported intolerance). This could be given as haloperidol 5 mg IM and lorazepam 2 mg IM q8 hr PRN psychosis. An administrative decision has previously been made that pt is not a candidate for admission to the psychiatric unit at [facility]. He certainly will require psychiatric hospitalization. A bed search is underway, but if he is st ill here on Sunday he will need a commitment hearing if he is to remain in the hospital involuntarily any longer. With respect to his involuntary status, it is my opinion that at present Mr. Becker does not have the capacity to make rational and informed decisions about healthcare so, even if he were to agree to remain in the hospital, we would not be able to use such agreement as informed consent and will continue to need to rely on the legal mechanisms for involuntary admission. Suicide Risk Level Suicide Risk Level: Moderate (q15 min suicide checks) (risk is due to disorganized behavior rather than suicidality as such) Risk Factors Assessment Male: Yes : Yes Do You Have Access To A Gun?: No Health Problems: Yes Mental Health Diagnoses: Yes Previous Psychiatric Hospitalization: Yes Protective Factors Assessment Responsible for Young Children: No Employed: No Stable Relationships: No Interval History Identifying Information ROGER BECKER is a 47-year-old male with a history of schizoaffective disorder, admitted on 09/14/2022 for seizures. Consult is by the hospitalist service for psychosis. Chief Complaint "I feel a lot better". Subjective Subjective Patient was seen & assessed and interval progress reviewed in a multidisciplinary team meeting with psychiatric liaison nursing and social work. For details, see the "Impression" section below. Physical Exam Psychiatric Orientation: alert, oriented to person, oriented to place, oriented to time and cooperative Apperance: + disheveled Eye Contact: + poor eye contact Motor Behavior: + tremor Speech: no pressured speech and no loud speech Affect: + constricted affect Mood: + dysphoric mood Thought Process: + circumstantial thought process and + tangential thought process Thought Content: + paranoid Suicidal Thoughts: denies suicidal thoughts, denies suicidal plan and denies suicidal intent Homicidal Thoughts: denies homicidal thoughts Hallucinations: no auditory hallucinations and no visual hallucinations Cognition: + recent memory not intact, + remote memory not intact, + attention not intact and + language not intact Estimated Intelligence: average estimated intelligence Insight: + impaired insight Judgment: + impaired judgement Vital Signs (Past 24 Hours) Last Vital Signs Temp 37.2 C 09/20/22 08:41 Pulse 92 H 09/20/22 08:41 Resp 18 09/20/22 08:41 BP 155/90 H 09/20/22 08:41 Pulse Ox 94 09/20/22 08:41 O2 Del Method Room Air 09/20/22 08:41 O2 Flow Rate 2 09/15/22 21:48 FiO2 30 09/14/22 22:35 Results & Data ([facility]) Current Inpatient Medications Current Inpatient Medications: Current Inpatient Medications Acetaminophen (Acetaminophen 500 Mg Tab) 500 mg PO Q6H PRN PRN Reason: pain/fever Stop: 10/15/22 19:55 Last Admin: 09/16/22 07:38 Dose: 500 mg Clonazepam (Clonazepam 1 Mg Tab) 1 mg PO DAILY CALI Stop: 10/15/22 08:59 Last Admin: 09/20/22 08:56 Dose: 1 mg Diphenhydramine HCl (Diphenhydramine Capsule 25 Mg Cap) 50 mg PO HS PRN PRN Reason: Anxiety/Insomnia Stop: 10/15/22 20:59 Last Admin: 09/18/22 20:38 Dose: 50 mg Divalproex Sodium (Divalproex Extended Release 500 Mg Tab) 500 mg PO DAILY CALI Stop: 10/15/22 08:59 Last Admin: 09/20/22 08:54 Dose: 500 mg Haloperidol (Haloperidol 5 Mg Tab) 5 mg PO Q12H PRN PRN Reason: Agitation Stop: 10/15/22 01:55 Last Admin: 09/19/22 05:15 Dose: 5 mg Ibuprofen (Ibuprofen 200 Mg Tab) 400 mg PO TID PRN PRN Reason: pain, headache Stop: 10/16/22 11:47 Last Admin: 09/20/22 09:24 Dose: 400 mg Lorazepam (Lorazepam 2 Mg/1 Ml Vial) 1 mg IV Q3H PRN PRN Reason: Anxiety/Agitation Stop: 10/17/22 00:17 Last Admin: 09/20/22 00:38 Dose: 1 mg Ondansetron HCl (Ondansetron Inj 2 Mg/Ml 2 Ml Vial) 4 mg IV Q6H PRN PRN Reason: Nausea And Vomiting Stop: 10/16/22 12:04 Oxcarbazepine (Oxcarbazepine 150 Mg Tablet) 750 mg PO BID CALI Stop: 10/14/22 23:44 Last Admin: 09/20/22 08:54 Dose: 750 mg Mental Health & Subst Abuse Tx Therapist Name of Therapist: Mat Ch @ [facility] (?) Sap Data Architect Name of Sap Data Architect: Joann santiago Martin K[facility] Post Discharge Appointments Primary Care Physician Name Of Family Doctor/PCP: Lico De Jesus
[2022-09-20] MEDS: TAMSULOSIN HCL 0.4 MG CAP PO SCH ×2 (12:01→20:04)
[2022-09-20] MEDS: ACETAMINOPHEN 500 MG TAB PO PRN ×2 (13:52→20:07)
--- NOTE | 2022-09-20 14:31 | Hospitalist Progress Note ---
Date of Service September 20, 2022 Assessment & Plan (1) Seizure: (2) Schizoaffective disorder: (3) Hypokalemia: (4) Hypophosphatemia: Plan Schizoaffective disorder/personality disorder/mood disorder, suboptimal following recent confinement of [facility] Appreciate psychiatry input and recommendation-on Depakote and oxcarbazepine for mood stabilization. Currently 1:1 Per psychiatry, 303 hearing was had on 09/18 for involuntary admission which was granted. Patient is still requiring one-to-one sitter and not yet cleared medically Restraints removed this morning, close monitor with 1:1 off Recurrent seizures status post intubation for airway protection- Possibly from high-dose Zyprexa administration Patient self extubated 09/14/22 and has been stable on NC, now saturating well in room air Seen by neurology-recommends noted. Currently on Depakote and oxcarbazepine, also for his psychiatric issues EEG: Potentially abnormal awake/drowsy EEG with evidence of left parietal slowing and sharps. Would correlate with brain MRI. No evidence of persistent seizure activity. MRI brain 1. No acute infarct or intracranial hemorrhage. 2. The temporal lobes are symmetric. 3. A few punctate foci of T2 hyperintensity seen within the periventricular and subcortical white matter of the supratentorial brain. These are nonspecific but greater than expected for age. Therefore, this could represent early m icrovascular ischemic change, migraines, Lyme's disease, or less likely a demyelinating disease or vasculitis. No more seizures The patient remains stable on current medications Lyme serology negative Electrolyte imbalance Hypokalemia-resolved Hypophosphatemia-resolved Transient atrial flutter secondary to illness- Patient NSR post Cardizem administration at the ER. Echo reviewed-sinus rhythm in 80s, was on a mechanical ventilation during study, mild concentric LVH, apex was not well visualized otherwise LV wall motion is normal, LV was hyperdynamic and the EF was more than 70%. There is no significant tricuspid regurgitation and right ventricle is normal in size and function. Currently in sinus rhythm Elevated CK- only mildly elevated and already downtrending. Urinary retention pt continues to pull lang out required straight cath today trial flomax at HS, if continues consider urology consult DVT prophylaxis. Lovenox subcu PCP: Poncho Mckeon MD Disposition: Needs admission to inpatient psych facility- bed search underway. Currently, Patient does not have decision making capacity to leave AMA Not yet cleared medically Pt was seen and examined in collaboration with Dr. Herman A total of 45 was spent coordinating, documenting, and providing care for this patient excluding time spent in the performance of separately billed services. This included personally viewing all current laboratories and imaging studies, medication reconciliation, outpatient chart review, and discussion with specialists. Admission and Anticipated Discharge Date Admission Date: September 14, 2022 Supervising Physician Co-Signing Physician Notes 09/20/2022 The patient was seen and examined in medical floor He has been sleeping today and denies any significant symptoms Remains pleasantly confused He has been having problem with voiding On examination Lying in bed comfortably Hemodynamically stable with blood pressure on the upper side at 155/90 Chest-clear to auscultate bilaterally Heart-S1, [id number] Abdomen-benign Extremities-occasional tremors His labs and imaging studies reviewed Has significant psychiatric symptoms with schizoaffective disorder Medically stable and is still requiring one-to-one sitter due to psychiatric symptoms Likely to need inpatient psych management Reviewed assessment and plan as outlined above by Nancy herman Subjective Pt seem and examined in room 356-2. Follow up Schizoaffective d/o, seizure. Sitting at bedside eating breakfast. Nurse states having a much better morning. He pulled lang out, retaining 500cc today so had to be straight cathed Review of Systems Review of Systems: All systems reviewed & are unremarkable except as noted in HPI & below Physical Exam Physical Exam: Gen: WD/WN, sitting at bedside, minimal eye contact, tremor of lower ext, NAD, Alert HEENT: Normocephalic, atraumatic, conjunctivae moist, sclerae anicteric, mucous membranes moist. Lung: Clear to Auscultation bilaterally, no wheezes/rales/rhonchi Heart: Regular rate, regular rhythm, no murmurs, rubs, or gallops Abdomen: Soft, NT, ND +BS x 4 Extremities: No edema Skin: Warm, no rash, negative turgor. Results & Data Results & Data Vital Signs (Past 12 Hours) Vital Signs Temp Pulse Resp BP Pulse Ox O2 Del Method 09/20/22 08:41 37.2 C 92 H 18 155/90 H 94 Room Air Medications Administered Current Inpatient Medications Acetaminophen (Acetaminophen 500 Mg Tab) 500 mg PO Q6H PRN PRN Reason: pain/fever Stop: 10/15/22 19:55 Last Admin: 09/20/22 13:52 Dose: 500 mg Clonazepam (Clonazepam 1 Mg Tab) 1 mg PO DAILY CALI Stop: 10/15/22 08:59 Last Admin: 09/20/22 08:56 Dose: 1 mg Diphenhydramine HCl (Diphenhydramine Capsule 25 Mg Cap) 50 mg PO HS PRN PRN Reason: Anxiety/Insomnia Stop: 10/15/22 20:59 Last Admin: 09/18/22 20:38 Dose: 50 mg Divalproex Sodium (Divalproex Extended Release 500 Mg Tab) 500 mg PO DAILY CALI Stop: 10/15/22 08:59 Last Admin: 09/20/22 08:54 Dose: 500 mg Haloperidol (Haloperidol 5 Mg Tab) 5 mg PO Q12H PRN PRN Reason: Agitation Stop: 10/15/22 01:55 Last Admin: 09/19/22 05:15 Dose: 5 mg Ibuprofen (Ibuprofen 200 Mg Tab) 400 mg PO TID PRN PRN Reason: pain, headache Stop: 10/16/22 11:47 Last Admin: 09/20/22 09:24 Dose: 400 mg Lorazepam (Lorazepam 2 Mg/1 Ml Vial) 1 mg IV Q3H PRN PRN Reason: Anxiety/Agitation Stop: 10/17/22 00:17 Last Admin: 09/20/22 00:38 Dose: 1 mg Ondansetron HCl (Ondansetron Inj 2 Mg/Ml 2 Ml Vial) 4 mg IV Q6H PRN PRN Reason: Nausea And Vomiting Stop: 10/16/22 12:04 Oxcarbazepine (Oxcarbazepine 150 Mg Tablet) 750 mg PO BID CALI Stop: 10/14/22 23:44 Last Admin: 09/20/22 08:54 Dose: 750 mg Tamsulosin HCl (Tamsulosin Hcl 0.4 Mg Cap) 0.4 mg PO HS CALI Stop: 10/20/22 11:18 Last Admin: 09/20/22 12:01 Dose: 0.4 mg
[2022-09-20] MEDS: diphenhydrAMINE Capsule 25 MG CAP PO PRN (20:03)
[2022-09-21] MEDS: haloperidoL 5 MG TAB PO PRN ×2 (01:33→20:19)
[2022-09-21] MEDS: LORazepam 2 MG/1 ML VIAL IV PRN ×3 (02:45→22:58)
[2022-09-21] MEDS: IBUPROFEN 200 MG TAB PO PRN (02:45)
[2022-09-21 08:42] LABS: Basophils # (auto) 0.04 K/uL (0-0.2); Basophils % (auto) 0.5 %; Eosinophils # (auto) 0.01 K/uL (0-0.50); Eosinophils % (auto) 0.1 %; Hematocrit (blood only) 33.7 % (42.0-52.0); Hemoglobin 11.7 g/dl (14.0-18.0); Immature Granulocytes # (auto) 0.18 K/uL (0.01-0.20); Immature Granulocytes % (auto) 2.1 %; Lymphocytes # (auto) 2.14 K/uL (1.2-3.4); Lymphocytes % (auto) 25.5 %; Mean Corpuscular Hemoglobin 31.7 pg (25.0-34.0); Mean Corpuscular Hgb Conc 34.7 g/dL (32.0-36.0); Mean Corpuscular Volume 91.3 fL (80.0-100.0); Mean Platelet Volume 9.1 fL (9.4-12.4); Monocytes # (auto) 1.29 K/uL (0.11-0.59); Monocytes % (auto) 15.4 %; Neutrophils # (auto) 4.73 K/uL (1.40-6.50); Neutrophils % (auto) 56.4 %; Platelet Count 323 K/uL (130-400); RDW Coefficient of Variation 12.4 % (11.5-14.5); RDW Standard Deviation 40.9 fL (36.4-46.3); Red Blood Count 3.69 M/uL (4.70-6.10); White Blood Count 8.39 K/ul (4.8-10.8)
[2022-09-21 08:56] LABS: Albumin Globulin Ratio 1.4 (0.9-2); Albumin Level 3.4 gm/dl (3.4-5.0); BUN Creatinine Ratio 18.6 (10-20); Bilirubin,Total 0.2 mg/dl (0.2-1.0); Calcium 8.3 mg/dl (8.6-10.3); Est GFR (African American) 108.1 ml/min; Est GFR (Non-African American) 93.2 ml/min; Globulin 2.5 gm/dl (2.5-4.0); Magnesium 1.9 mg/dl (1.7-2.4); Potassium 3.5 mmol/L (3.5-5.1); Total Protein 5.9 gm/dl (6.0-8.3)
[2022-09-21] MEDS: DIVALPROEX EXTENDED RELEASE 500 MG TAB PO SCH (09:02)
[2022-09-21] MEDS: clonazePAM 1 MG TAB PO SCH (09:02)
[2022-09-21] MEDS: OXcarbazepine 150 MG TABLET PO SCH ×2 (09:03→20:19)
--- NOTE | 2022-09-21 12:45 | Psychiatric Progress Note ---
Date of Service September 21, 2022 Impression / Recommendations Impression 47 y/o man with schizoaffective disorder, bipolar type who's been off his medication and who recently had seizures in the ED in the context of having been off his high-dose anticonvulsants and benzodiazepine and having been administered olanzapine. 09/21/2022: Today immediately greets me by role and name. He is fully-oriented. He says he believes he needs psychiatric admissions to get his medications straightened out. Frequently redirects his mother when she interrupts or perseverates on the many conditions she would like to place on where he's admitted. In speaking of places where he's reported bad experiences, says "but I still learned things there". 09/20/2022: Pt presents as very considerably improved today. On approach he stands at bedside talking with his mother. He is fully-oriented to person, place, time, and situation. He is able to tell me he's "had a lot of trouble peeing; they took the catheter out [although it seems he pulled it last night] and I've just been dribbling, so they might have to put it back in". He says he's "been very confused and didn't know what was going on" but that he feels "more on top of things now". He has no recall of his several previous meetings with me but a cknowledges "it's all been a blur". When left to his own devices, he does tend to wander off-topic and shows no sign of being likely to stop talking, but is easily redirected. 09/19/2022: Clearly a little better today. He makes an effort to interact, though he remains highly distracted. If not continually redirected, his speech rapidly meanders off into gibberish. He is oriented to person, "a room" at "[facility]" in "the [facility]" (and, when pressed, "[place]") but not to town. He is "pretty sure the year is 2022" and is less confident that "it's May?". He has "no idea" about the day or date. He says he "slept OK last night" (though I can't confirm that). He looks anxious or frightened but denies any such feelings. He says he doesn't remember ever meeting me before. 09/18/2022: A hearing was held today for a section 303 petition for involuntary admission. This was granted. Day by day appears a bit less confused. His speech has gone from "word salad" to nearly incomprehensible to, now, rambling and difficult to follow but occasionally making some sense. He has shown some recall of recent events (such as having flung his food tray at a nurse yesterday). He is back on what is thought to have been his [id number] dose of oxcarbazepine (1,500 mg/day) but is on only a fraction (500 mg/day) of his apparent [employer] dose of venlafaxine ER (3,000 mg/day). 09/17/2022: Behavior has remained disorganized and unpredictable - earlier today his flung his meal tray at a nurse. He has continued to require frequent medication and physical restraint for safety. However, he's a bit less intensely psychotic today and his speech occasionally makes some sense. For example, he told me he was tired and that it's hard to sleep in the hospital. He seems to have a sense that he's not really following what's going on around him and to be making some effort to focus. 09/16/2022: Of some concern is reported intolerance to the phenothiazine antipsychotic chlorpromazine (and, in the absence of information about the nature of the intolerance and by extension, possibly to the others), aripiprazole (and thus possibly also to brexpiprazole), quetiapine (and possibly therefore to asenapine as well), and risperidone (and by extension possibly to paliperidone as well). It should be noted that he has a listed (but poorly-documented) intolerance to diphenhydramine, which suggests the need for much caution in using medications to which he might possibly have actual allergic reactions). At present he appears very psychotic. This could represent a degree of postict al/periictal delirium as well as untreated psychosis and priscila due to his schizoaffective disorder. (1) Schizoaffective disorder, bipolar type: Plan 09/21/2022: Requires psychiatric admission. Bed search is underway. 09/20/2022: Based on pt's presentation today, I can only recommend staying the current course in terms of psychiatric treatment. He will still require psychiatric admission once medically stable. 09/19/2022: By history, pt has required much higher divalproex ER dose (3,000 mg/day), along with oxcarbazepine, to suppress priscila and seizures. If he can't tolerate whole divalproex ER tablets, divalproex or valproic acid could be used with a target dose of 2,000 mg/day. In either case, dose should be titrated to a target blood level in the range of 85-125 g/mL. 09/18/2022: Pt is now subject to a section 303 involuntary commitment. He must remain in the hospital on 1:1 observation until he's determined to be medically stable. At that time, a psychiatric bed search will need to be undertaken. Consider more aggressive titration of divalproex. 09/17/2022: Continue current medication regimen. Pt will require a hearing to enable continuing hospitalization (because he certainly can't be discharged to home). 09/16/2022: Since pt clearly needs both antiepileptic and antimanic pharmacotherapy, it w ould seem eminently reasonable to resume the divalproex and oxcarbazepine he'd previously been taking. I agree with your decision not to resume the 3,000mg/day divalproex ER and 1,200 mg/day oxcarbazepine doses right away, but would suggest titrating as aggressively as tolerated. Note that divalproex ER is not equally bioavailable as IR divalproex. If it's necessary to crush tablets or use any dos age form other than ER, total dose may need to be 20-25% lower than with the ER form. With divalproex, the target antimanic range of blood level is 85-125 g/mL (higher than the typical therapeutic range for seizure control of 50-100 g/mL) and dose should be titrated based on blood level. For oxcarbazepine there is fairly scant published data about therapeutic blood level for priscila, but for carbamazepine it's fairly clear that the target range is the same as for seizure control, so oxcarbazepine dose should be titrated to usual antiepileptic blood level. Pt was on fairly high-dose (4 mg/day) clonazepam until some unknown time prior to admission, and it's possible that some of the waxing and waning cognition we're seeing could represent a degree of benzodiazepine withdrawal. It's also obviously antiepileptic and wouldn't require titration via blood level, so I recommend resuming 2 mg BID. If pt won't accept oral medication, clonazepam is essentially equipotent with lorazepam, though doses of the latter would need to be divided due to shorter half-life (e.g., 1 mg QID). If pt requires parenteral antipsychotic medication due to potentially dangerous behavior appearing to arise from psychosis, haloperidol would appear to be the safest option (administeredwithoutdiphenhydramine due to the reported intolerance). This could be given as haloperidol 5 mg IM and lorazepam 2 mg IM q8 hr PRN psychosis. An administrative decision has previously been made that pt is not a candidate for admission to the psychiatric unit at [facility]. He certainly will require psychiatric hospitalization. A bed search is underway, but if he is still here on Sunday he will need a commitment hearing if he is to remain in the hospital involuntarily any longer. With respect to his involuntary status, it is my opinion that at present Mr. Becker does not have the capacity to make rational and informed decisions about healthcare so, even if he were to agree to remain in the hospital, we would not be able to use such agreement as informed consent and will continue to need to rely on the legal mechanisms for involuntary admission. Suicide Risk Level Suicide Risk Level: Moderate (q15 min suicide checks) (risk is due to disorganized behavior rather than suicidality as such) Risk Factors Assessment Male: Yes : Yes Do You Have Access To A Gun?: No Health Problems: Yes Mental Health Diagnoses: Yes Previous Psychiatric Hospitalization: Yes Protective Factors Assessment Responsible for Young Children: No Employed: No Stable Relationships: No Interval History Identifying Information ROGER BECKER is a 47-year-old male with a history of schizoaffective disorder, admitted on 09/14/2022 for seizures. Consult is by the hospitalist service for psychosis. Chief Complaint "I feel much better". Subjective Subjective Patient was seen & assessed and interval progress reviewed with [treatment team] [nursing and social work] Physical Exam Psychiatric Orientation: alert, oriented to person, oriented to place, oriented to time and cooperative Apperance: + disheveled Eye Contact: + poor eye contact Motor Behavior: + tremor Speech: no pressured speech and no loud speech Affect: euthymic affect and mood congruent with affect Mood: + dysphoric mood Thought Process: + circumstantial thought process and + tangential thought process Thought Content: + paranoid Suicidal Thoughts: denies suicidal thoughts, denies suicidal plan and denies suicidal intent Homicidal Thoughts: denies homicidal thoughts Hallucinations: no auditory hallucinations and no visual hallucinations Cognition: recent memory grossly intact; + remote memory not intact, + attention not intact and + language not intact Estimated Intelligence: average estimated intelligence Insight: + impaired insight Judgment: + impaired judgement Vital Signs (Past 24 Hours) Last Vital Signs Temp 37.1 C 09/20/22 14:58 Pulse 90 09/20/22 14:58 Resp 18 09/20/22 14:58 BP 128/82 09/20/22 14:58 Pulse Ox 95 09/20/22 14:58 O2 Del Method Room Air 09/20/22 14:58 O2 Flow Rate 2 09/15/22 21:48 FiO2 30 09/14/22 22:35 Results & Data ([facility]) Laboratory Results Laboratory Results - last 24 hr 09/21/22 09/21/22 07:45 07:45 WBC 8.39 RBC 3.69 L Hgb 11.7 L Hct 33.7 L MCV 91.3 MCH 31.7 MCHC 34.7 RDW Std Deviation 40.9 RDW Coeff of Levy 12.4 Plt Count 323 MPV 9.1 L Immature Gran % (Auto) 2.1 Neut % (Auto) 56.4 Lymph % (Auto) 25.5 Saline % (Auto) 15.4 Eos % (Auto) 0.1 Baso % (Auto) 0.5 Neut # (Auto) 4.73 Lymph # (Auto) 2.14 Saline # (Auto) 1.29 H Eos # (Auto) 0.01 Baso # (Auto) 0.04 Immature Gran # (Auto) 0.18 Sodium 139 Potassium 3.5 Chloride 106 Carbon Dioxide 27 Anion Gap 6 BUN 18 Creatinine 0.97 Est Cr Clr Drug Dosing 89.0 Est GFR ( Amer) 108.1 Est GFR (Non-Af Amer) 93.2 BUN/Creatinine Ratio 18.6 Glucose 105 H Calcium 8.3 L Magnesium 1.9 Total Bilirubin 0.2 AST 36 ALT 86 H Alkaline Phosphatase 83 Total Creatine Kinase 199 Total Protein 5.9 L Albumin 3.4 Globulin 2.5 Albumin/Globulin Ratio 1.4 Current Inpatient Medications Current Inpatient Medications: Current Inpatient Medications Acetaminophen (Acetaminophen 500 Mg Tab) 500 mg PO Q6H PRN PRN Reason: pain/fever Stop: 10/15/22 19:55 Last Admin: 09/20/22 20:07 Dose: 500 mg Clonazepam (Clonazepam 1 Mg Tab) 1 mg PO DAILY CALI Stop: 10/15/22 08:59 Last Admin: 09/21/22 09:02 Dose: 1 mg Diphenhydramine HCl (Diphenhydramine Capsule 25 Mg Cap) 50 mg PO HS PRN PRN Reason: Anxiety/Insomnia Stop: 10/15/22 20:59 Last Admin: 09/20/22 20:03 Dose: 50 mg Divalproex Sodium (Divalproex Extended Release 500 Mg Tab) 500 mg PO DAILY CALI Stop: 10/15/22 08:59 Last Admin: 09/21/22 09:02 Dose: 500 mg Haloperidol (Haloperidol 5 Mg Tab) 5 mg PO Q12H PRN PRN Reason: Agitation Stop: 10/15/22 01:55 Last Admin: 09/21/22 01:33 Dose: 5 mg Ibuprofen (Ibuprofen 200 Mg Tab) 400 mg PO TID PRN PRN Reason: pain, headache Stop: 10/16/22 11:47 Last Admin: 09/21/22 02:45 Dose: 400 mg Lorazepam (Lorazepam 2 Mg/1 Ml Vial) 1 mg IV Q3H PRN PRN Reason: Anxiety/Agitation Stop: 10/17/22 00:17 Last Admin: 09/21/22 02:45 Dose: 1 mg Ondansetron HCl (Ondansetron Inj 2 Mg/Ml 2 Ml Vial) 4 mg IV Q6H PRN PRN Reason: Nausea And Vomiting Stop: 10/16/22 12:04 Last Admin: 09/21/22 09:00 Dose: 4 mg Oxcarbazepine (Oxcarbazepine 150 Mg Tablet) 750 mg PO BID CALI Stop: 10/14/22 23:44 Last Admin: 09/21/22 09:03 Dose: 750 mg Tamsulosin HCl (Tamsulosin Hcl 0.4 Mg Cap) 0.4 mg PO HS CALI Stop: 10/20/22 11:18 Last Admin: 09/20/22 20:04 Dose: 0.4 mg Mental Health & Subst Abuse Tx Therapist Name of Therapist: Mat Ch @ [facility] Clear (?) Product Info Specialist Name of Product Info Specialist: Joann santiago [place] [facility] Post Discharge Appointments Primary Care Physician Name Of Family Doctor/PCP: Lico De Jesus
--- NOTE | 2022-09-21 15:55 | Hospitalist Progress Note ---
Date of Service September 21, 2022 Assessment & Plan (1) Seizure: Plan: No more seizures (2) Schizoaffective disorder: Plan: Will need inpatient psychiatric care (3) Hypokalemia: (4) Hypophosphatemia: Plan Schizoaffective disorder/personality disorder/mood disorder, suboptimal following recent confinement of [facility] [address] Appreciate psychiatry input and recommendation-on Depakote and oxcarbazepine for mood stabilization. Per psychiatry, 303 hearing was had on 09/18 for involuntary admission which was granted. Patient is still requiring one-to-one sitter and not yet cleared medically Restraints removed this morning, close monitor with 1:1 Medically stable-Will need inpatient psychiatric care Recurrent seizures status post intubation for airway protection- Possibly from high-dose Zyprexa administration Patient self extubated 09/14/22 and has been stable on NC, now saturating well in room air Seen by neurology-recommends noted. Currently on Depakote and oxcarbazepine, also for his psychiatric issues EEG: Potentially abnormal awake/drowsy EEG with evidence of left parietal slowing and sharps. Would correlate with brain MRI. No evidence of persistent seizure activity. MRI brain 1. No acute infarct or intracranial hemorrhage. 2. The temporal lobes are symmetric. 3. A few punctate foci of T2 hyperintensity seen within the periventricular and subcortical white matter of the supratentorial brain. These are nonspecific but greater than expected for age. Therefore, this could represent early microvascular ischemic change, migraines, Lyme's disease, or less likely a demyelinating disease or vasculitis. No more seizures The patient remains stable on current medications Lyme serology negative Electrolyte imbalance Hypokalemia-resolved Hypophosphatemia-resolved Transient atrial flutter secondary to illness- Patient NSR post Cardizem administration at the ER. Echo reviewed-sinus rhythm in 80s, was on a mechanical ventilation during study, mild concentric LVH, apex was not well visualized otherwise LV wall motion is normal, LV was hyperdynamic and the EF was more than 70%. There is no significant tricuspid regurgitation and right ventricle is normal in size and function. Currently in sinus rhythm Elevated CK- only mildly elevated and already downtrending. Urinary retention pt continues to pull lang out required straight cath today trial flomax at HS, if continues consider urology consult Flomax has been working DVT prophylaxis. Lovenox subcu PCP: Poncho Mckeon MD Disposition: Needs admission to inpatient psych facility- bed search underway. Currently, Patient does not have decision making capacity to leave AMA Not yet cleared medically Admission and Anticipated Discharge Date Admission Date: September 14, 2022 Subjective Pt seem and examined in room 356-2. Follow up Schizoaffective d/o, seizure. Sitting at bedside eating breakfast. Nurse states having a much better morning. He pulled lang out, retaining 500cc today so had to be straight cathed 09/21/2022 The patient was seen and examined in medical floor He has been medically stable Still requiring one-to-one sitter-not being aggressive and has been listening Review of Systems Review of Systems: All systems reviewed and are unremarkable except as noted below Physical Exam Physical Exam: Lying in bed comfortably Constitutional: + ill appearing and average body habitus Eyes: PERRL, conjunctivae normal, anicteric sclerae ENMT: external ear and nose normal, oropharynx normal Neck: trachea midline, no thyromegaly Respiratory: no respiratory distress Auscultation: lungs clear to auscultation bilaterally Cardiovascular: Rate/Rhythm: regular rate and regular rhythm; not tachycardic Extremities: no edema Gastrointestinal (Abdomen): Inspection/Auscultation: normal bowel sounds; abdomen not distended Percussion/Palpation: abdomen soft; abdomen nontender Musculoskeletal: No acute arthritis involving any of the joint Neurologic: Alert and awake. Ambulating without much difficulty. Lymphatic: no cervical or axillary lymphadenopathy Results & Data Results & Data Vital Signs (Past 12 Hours) Vital Signs Temp Pulse Resp BP Pulse Ox O2 Del Method 09/21/22 15:06 37.4 C 98 H 21 132/86 95 Room Air Laboratory Results Short CBC 09/21/22 Range/Units 07:45 WBC 8.39 (4.8-10.8) K/ul Hgb 11.7 L (14.0-18.0) g/dl Hct 33.7 L (42.0-52.0) % Plt Count 323 (130-400) K/uL BMP 09/21/22 07:45 Sodium 139 Potassium 3.5 Chloride 106 Carbon Dioxide 27 BUN 18 Creatinine 0.97 Glucose 105 H Calcium 8.3 L Cardiac Enzymes 09/21/22 Range/Units 07:45 Total Creatine Kinase 199 (30-223) U/L Liver Function 09/21/22 Range/Units 07:45 Total Bilirubin 0.2 (0.2-1.0) mg/dl AST 36 (13-39) U/L ALT 86 H (7-52) U/L Alkaline Phosphatase 83 (34-104) U/L Albumin 3.4 (3.4-5.0) gm/dl Medications Administered Current Inpatient Medications Acetaminophen (Acetaminophen 500 Mg Tab) 500 mg PO Q6H PRN PRN Reason: pain/fever Stop: 10/15/22 19:55 Last Admin: 09/20/22 20:07 Dose: 500 mg Clonazepam (Clonazepam 1 Mg Tab) 1 mg PO DAILY CALI Stop: 10/15/22 08:59 Last Admin: 09/21/22 09:02 Dose: 1 mg Diphenhydramine HCl (Diphenhydramine Capsule 25 Mg Cap) 50 mg PO HS PRN PRN Reason: Anxiety/Insomnia Stop: 10/15/22 20:59 Last Admin: 09/20/22 20:03 Dose: 50 mg Divalproex Sodium (Divalproex Extended Release 500 Mg Tab) 500 mg PO DAILY CALI Stop: 10/15/22 08:59 Last Admin: 09/21/22 09:02 Dose: 500 mg Haloperidol (Haloperidol 5 Mg Tab) 5 mg PO Q12H PRN PRN Reason: Agitation Stop: 10/15/22 01:55 Last Admin: 09/21/22 01:33 Dose: 5 mg Ibuprofen (Ibuprofen 200 Mg Tab) 400 mg PO TID PRN PRN Reason: pain, headache Stop: 10/16/22 11:47 Last Admin: 09/21/22 02:45 Dose: 400 mg Lorazepam (Lorazepam 2 Mg/1 Ml Vial) 1 mg IV Q3H PRN PRN Reason: Anxiety/Agitation Stop: 10/17/22 00:17 Last Admin: 09/21/22 13:09 Dose: 1 mg Ondansetron HCl (Ondansetron Inj 2 Mg/Ml 2 Ml Vial) 4 mg IV Q6H PRN PRN Reason: Nausea And Vomiting Stop: 10/16/22 12:04 Last Admin: 09/21/22 09:00 Dose: 4 mg Oxcarbazepine (Oxcarbazepine 150 Mg Tablet) 750 mg PO BID [facility] Stop: 10/14/22 23:44 Last Admin: 09/21/22 09:03 Dose: 750 mg Tamsulosin HCl (Tamsulosin Hcl 0.4 Mg Cap) 0.4 mg PO HS [facility] Stop: 10/20/22 11:18 Last Admin: 09/20/22 20:04 Dose: 0.4 mg
[2022-09-21] MEDS: TAMSULOSIN HCL 0.4 MG CAP PO SCH (20:19)
[2022-09-21] MEDS: diphenhydrAMINE Capsule 25 MG CAP PO PRN (20:20)
[2022-09-22] MEDS: LORazepam 2 MG/1 ML VIAL IV PRN (06:16)
[2022-09-22] MEDS: clonazePAM 1 MG TAB PO SCH (07:52)
[2022-09-22] MEDS: ACETAMINOPHEN 500 MG TAB PO PRN (07:52)
[2022-09-22] MEDS: OXcarbazepine 150 MG TABLET PO SCH ×2 (07:52→20:07)
[2022-09-22] MEDS: DIVALPROEX EXTENDED RELEASE 500 MG TAB PO SCH (09:35)
[2022-09-22] MEDS: haloperidoL 5 MG TAB PO PRN ×2 (09:41→21:43)
--- NOTE | 2022-09-22 13:19 | Psychiatric Progress Note ---
Date of Service September 22, 2022 Impression / Recommendations Impression 47 y/o man with schizoaffective disorder, bipolar type who's been off his medication and who recently had seizures in the ED in the context of having been off his high-dose anticonvulsants and benzodiazepine and having been administered olanzapine. 09/22/2022: Continues to improve. Today greeted me by role and name, dressed in street clothes and better-groomed. Speech makes sense and he's more able to participate in a prolonged conversation. Still very restless at night, sleeping only a couple of hours. 09/21/2022: Today immediately greets me by role and name. He is fully-oriented. He says he believes he needs psychiatric admissions to get his medications straightened out. Frequently redirects his mother when she interrupts or perseverates on the many conditions she would like to place on where he's admitted. In speaking of places where he's reported bad experiences, says "but I still learned things there". 09/20/2022: Pt presents as very considerably improved today. On approach he stands at [facility] e talking with his mother. He is fully-oriented to person, place, time, and situation. He is able to tell me he's "had a lot of trouble peeing; they took the catheter out [although it seems he pulled it last night] and I've just been dribbling, so they might have to put it back in". He says he's "been very confused and didn't know what was going on" but that he feels "more on top of things now". He has no recall of his several previous meetings with me but acknowledges "it's all been a blur". When left to his own devices, he does tend to wander off-topic and shows no sign of being likely to stop talking, but is easily redirected. 09/19/2022: Clearly a little better today. He makes an effort to interact, though he remains highly distracted. If not continually redirected, his speech rapidly meanders off into gibberish. He is oriented to person, "a room" at "[facility]" in "[facility]" (and, when pressed, "[place]") but not to town. He is "pretty sure the year is 2022" and is less confident that "it's May?". He has "no idea" about the day or date. He says he "slept OK last night" (though I can't confirm that). He looks anxious or frightened but denies any suc h feelings. He says he doesn't remember ever meeting me before. 09/18/2022: A hearing was held today for a section 303 petition for involuntary admission. This was granted. Day by day appears a bit less confused. His speech has gone from "word salad" to nearly incomprehensible to, now, rambling and difficult to follow but occasionally making some sense. He has shown some recall of recent events (such as having flung his food tray at a nurse yesterday). He is back on what is thought to have been his [id number] dose of oxcarbazepine (1,500 mg/day) but is on only a fraction (500 mg/day) of his apparent [employer]BER dose of venlafaxine ER (3,000 mg/day). 09/17/2022: Behavior has remained disorganized and unpredictable - earlier today his flung his meal tray at a nurse. He has continued to require frequent medication and physical restraint for safety. However, he's a bit less intensely psychotic today and his speech occasionally makes some sense. For example, he told me he was tired and that it's hard to sleep in the hospital. He seems to have a sense that he's not really following what's going on around him and to be making some effort to focus. 09/16/2022: Of some concern is reported intolerance to the phenothiazine antipsychotic chlorpromazine (and, in the absence of information about the nature of the intolerance and by extension, possibly to the others), aripiprazole (and thus possibly also to brexpiprazole), quetiapine (and possibly therefore to asenapine as well), and risperidone (and by extension possibly to paliperidone as well). It should be noted that he has a listed (but poorly-documented) intolerance to diphenhydramine, which suggests the need for much caution in using medications to which he might possibly have actual allergic reactions). At present he appears very psychotic. This could represent a degree of postictal/periictal delirium as well as untreated psychosis and priscila due to his schizoaffective disorder. (1) Schizoaffective disorder, bipolar type: Plan 09/22/2022: Requires psychiatric admission. Bed search continues. Please do consider titrating divalproex. It would be appropriate to check trough levels of valproate and oxcarbazepine to assess whether they're in the therapeutic range. 09/21/2022: Requires psychiatric admission. Bed search is underway. 09/20/2022: Based on pt's presentation today, I can only recommend staying the current course in terms of psychiatric treatment. He will still require psychiatric admission once medically stable. 09/19/2022: By history, pt has required much higher divalproex ER dose (3,000 mg/day), along with oxcarbazepine, to suppress priscila and seizures. If he can't tolerate whole divalproex ER tablets, divalproex or valproic acid could be used with a target dose of 2,000 mg/day. In either case, dose should be titrated to a target blood level in the range of 85-125 g/mL. 09/18/2022: Pt is now subject to a section 303 involuntary commitment. He must remain in the hospital on 1:1 observation until he's determined to be medically stable. At that time, a psychiatric bed search will need to be undertaken. Consider more aggressive titration of divalproex. 09/17/2022: Continue current medication regimen. Pt will require a hearing to enable continuing hospitalization (because he certainly can't be discharged to home). 09/16/2022: Since pt clearly needs both antiepileptic and antimanic pharmacotherapy, it would seem eminently reasonable to resume the divalproex and oxcarbazepine he'd previously been taking. I agree with your decision not to resume the 3,000mg/day divalproex ER and 1,200 mg/day oxcarbazepine doses right away, but would suggest titrating as aggressively as tolerated. Note that divalproex ER is not equally bioavailable as IR divalproex. If it's necessary to crush tablets or use any dosage form other than ER, total dose may need to be 20-25% lower than with the ER form. With divalproex, the target antimanic range of blood level is 85-125 g/mL (higher than the typical therapeutic range for seizure control of 50-100 g/mL) and dose should be titrated based on blood level. For oxcarbazepine there is fairly scant published data about therapeutic blood level for priscila, but for carbamazepine it's fairly clear that the target range is the same as for seizure control, so oxcarbazepine dose should be titrated to usual antiepileptic blood level. Pt was on fairly high-dose (4 mg/day) clonazepam until some unknown time prior to admission, and it's possible that some of the waxing and waning cognition we're seeing could represent a degree of benzodiazepine withdrawal. It's also obviously antiepileptic and wouldn't require titration via blood level, so I recommend resuming 2 mg BID. If pt won't accept oral medication, clonazepam is essentially equipotent with lorazepam, though doses of the latter would need to be divided due to shorter half-life (e.g., 1 mg QID). If pt requires parenteral antipsychotic medication due to potentially dangerous behavior appearing to arise from psychosis, haloperidol would appear to be the safest option (administeredwithoutdiphenhydramine due to the reported intolerance). This could be given as haloperidol 5 mg IM and lorazepam 2 mg IM q8 hr PRN psychosis. An administrative decision has previously been made that pt is not a candidate for admission to the psychiatric unit at [facility]. He certainly will require psychiatric hospitalization. A bed search is underway, but if he is still here on Sunday he will need a commitment hearing if he is to remain in the hospital involuntarily any longer. With respect to his involuntary status, it is my opinion that at present Mr. Becker does not have the capacity to make rational and informed decisions about healthcare so, even if he were to agree to remain in the hospital, we would not be able to use such agreement as informed consent and will continue to need to rely on the legal mechanisms for involuntary admission. Suicide Risk Level Suicide Risk Level: Low (q15 min observation checks) (any risk is due to disorganized behavior rather than suicidality as such) Risk Factors Assessment Male: Yes : Yes Do You Have Access To A Gun?: No Health Problems: Yes Mental Health Diagnoses: Yes Previous Psychiatric Hospitalization: Yes Protective Factors Assessment Responsible for Young Children: No Employed: No Stable Relationships: No Interval History Identifying Information ROGER BECKER is a 47-year-old male with a history of schizoaffective disorder, admitted on 09/14/2022 for seizures. Consult is by the hospitalist service for psychosis. Chief Complaint "I'm getting there, slowly but surely". Subjective Subjective Patient was seen & assessed and interval progress reviewed in a multidisciplinary team meeting with psychiatric liaison nursing and social work. For details, see the "Impression" section below. Physical Exam Psychiatric Orientation: alert, oriented to person, oriented to place, oriented to time and cooperative Apperance: appropriately dressed and appropriately groomed Eye Contact: good eye contact Motor Behavior: + tremor Speech: no pressured speech and no loud speech Affect: euthymic affect Mood: + dysphoric mood Thought Process: + circumstantial thought process and + tangential thought process Thought Content: + cognitive distortions Suicidal Thoughts: denies suicidal thoughts, denies suicidal plan and denies suicidal intent Homicidal Thoughts: denies homicidal thoughts Hallucinations: no auditory hallucinations and no visual hallucinations Cognition: recent memory grossly intact, remote memory grossly intact and language grossly intact; + attention not intact Estimated Intelligence: average estimated intelligence Insight: + limited insight Judgment: + limited judgement Vital Signs (Past 24 Hours) Last Vital Signs Temp 37 C 09/22/22 07:03 Pulse 76 09/22/22 07:03 Resp 16 09/22/22 07:03 BP 132/84 09/22/22 07:03 Pulse Ox 94 09/22/22 07:03 O2 Del Method Room Air 09/22/22 07:03 O2 Flow Rate 2 09/15/22 21:48 FiO2 30 09/14/22 22:35 Results & Data ([facility] [place]) Current Inpatient Medications Current Inpatient Medications: Current Inpatient Medications Acetaminophen (Acetaminophen 500 Mg Tab) 500 mg PO Q6H PRN PRN Reason: pain/fever Stop: 10/15/22 19:55 Last Admin: 09/22/22 07:52 Dose: 500 mg Clonazepam (Clonazepam 1 Mg Tab) 1 mg PO DAILY CALI Stop: 10/15/22 08:59 Last Admin: 09/22/22 07:52 Dose: 1 mg Diphenhydramine HCl (Diphenhydramine Capsule 25 Mg Cap) 50 mg PO HS PRN PRN Reason: Anxiety/Insomnia Stop: 10/15/22 20:59 Last Admin: 09/21/22 20:20 Dose: 50 mg Divalproex Sodium (Divalproex Extended Release 500 Mg Tab) 500 mg PO DAILY CALI Stop: 10/15/22 08:59 Last Admin: 09/22/22 09:35 Dose: 500 mg Haloperidol (Haloperidol 5 Mg Tab) 5 mg PO Q12H PRN PRN Reason: Agitation Stop: 10/15/22 01:55 Last Admin: 09/22/22 09:41 Dose: 5 mg Ibuprofen (Ibuprofen 200 Mg Tab) 400 mg PO TID PRN PRN Reason: pain, headache Stop: 10/16/22 11:47 Last Admin: 09/21/22 02:45 Dose: 400 mg Lorazepam (Lorazepam 1 Mg Tab) 1 mg PO Q4H PRN PRN Reason: Anxiety Stop: 10/22/22 11:45 Ondansetron HCl (Ondansetron Inj 2 Mg/Ml 2 Ml Vial) 4 mg IV Q6H PRN PRN Reason: Nausea And Vomiting Stop: 10/16/22 12:04 Last Admin: 09/21/22 09:00 Dose: 4 mg Oxcarbazepine (Oxcarbazepine 150 Mg Tablet) 750 mg PO BID CALI Stop: 10/14/22 23:44 Last Admin: 09/22/22 07:52 Dose: 750 mg Tamsulosin HCl (Tamsulosin Hcl 0.4 Mg Cap) 0.4 mg PO HS CALI Stop: 10/20/22 11:18 Last Admin: 09/21/22 20:19 Dose: 0.4 mg Mental Health & Subst Abuse Tx Therapist Name of Therapist: Mat Ch @ [facility] Clear (?) Master Control Supervisor Name of Master Control Supervisor: Joann santiago [employer] [facility] Post Discharge Appointments Primary Care Physician Name Of Family Doctor/PCP: Lico De Jesus
--- NOTE | 2022-09-22 15:06 | Hospitalist Progress Note ---
Date of Service September 22, 2022 Assessment & Plan (1) Seizure: Plan: No more seizures (2) Schizoaffective disorder: Plan: Will need inpatient psychiatric care (3) Hypokalemia: (4) Hypophosphatemia: Plan Schizoaffective disorder/personality disorder/mood disorder, suboptimal following recent confinement of [facility] Appreciate psychiatry input and recommendation-on Depakote and oxcarbazepine for mood stabilization. Per psychiatry, 303 hearing was had on 09/18 for involuntary admission which was granted. Patient is still requiring one-to-one sitter and not yet cleared medically Restraints removed this morning, close monitor with 1:1 Medically stable-Will need inpatient psychiatric care Awaiting placement Recurrent seizures status post intubation for airway protection- Possibly from high-dose Zyprexa administration Patient self extubated 09/14/22 and has been stable on NC, now saturating well in room air Seen by neurology-recommends noted. Currently on Depakote and oxcarbazepine, also for his psychiatric issues EEG: Potentially abnormal awake/drowsy EEG with evidence of left parietal slowing and sharps. Would correlate with brain MRI. No evidence of persistent seizure activity. MRI brain 1. No acute infarct or intracranial hemorrhage. 2. The temporal lobes are symmetric. 3. A few punctate foci of T2 hyperintensity seen within the periventricular and subcortical white matter of the supratentorial brain. These are nonspecific but greater than expected for age. Therefore, this could represent early microvascular ischemic change, migraines, Lyme's disease, or less likely a demyelinating disease or vasculitis. No more seizures The patient remains stable on current medications Lyme serology negative Electrolyte imbalance Hypokalemia-resolved Hypophosphatemia-resolved We will check electrolytes again Transient atrial flutter secondary to illness- Patient NSR post Cardizem administration at the ER. Echo reviewed-sinus rhythm in 80s, was on a mechanical ventilation during study, mild concentric LVH, apex was not well visualized otherwise LV wall motion is normal, LV was hyperdynamic and the EF was more than 70%. There is no significant tricuspid regurgitation and right ventricle is normal in size and function. Currently in sinus rhythm Elevated CK- only mildly elevated and already downtrending. Urinary retention pt continues to pull lang out required straight cath today trial flomax at HS, if continues consider urology consult Flomax has been working DVT prophylaxis. Lovenox subcu PCP: Poncho Mckeon MD Disposition: Needs admission to inpatient psych facility- bed search underway. Currently, Patient does not have decision making capacity to leave AMA Remains medically stable to be transferred to a psychiatric facility Admission and Anticipated Discharge Date Admission Date: September 14, 2022 Subjective Pt seem and examined in room 356-2. Follow up Schizoaffective d/o, seizure. Sitting at bedside eating breakfast. Nurse states having a much better morning. He pulled lang out, retaining 500cc today so had to be straight cathed 09/21/2022 The patient was seen and examined in medical floor He has been medically stable Still requiring one-to-one sitter-not being aggressive and has been listening 09/22/2022 The patient was seen and examined in medical floor He remained medically stable Still requiring one-to-one sitter for his psychiatric issues Review of Systems Review of Systems: All systems reviewed and are unremarkable except as noted below Physical Exam Physical Exam: Lying in bed comfortably Constitutional: average body habitus; not ill appearing Eyes: PERRL, conjunctivae normal, anicteric sclerae ENMT: external ear and nose normal, oropharynx normal Neck: trachea midline, no thyromegaly Respiratory: no respiratory distress Auscultation: lungs clear to auscultation bilaterally Cardiovascular: Rate/Rhythm: regular rate and regular rhythm; not tachycardic Extremities: no edema Gastrointestinal (Abdomen): Inspection/Auscultation: normal bowel sounds; abdomen not distended Percussion/Palpation: abdomen soft; abdomen nontender Musculoskeletal: No acute arthritis involving any joint Neurologic: Alert and awake. Has generalized shakes specially when he is excited. Lymphatic: no cervical or axillary lymphadenopathy Results & Data Results & Data Vital Signs (Past 12 Hours) Vital Signs Temp Pulse Resp BP Pulse Ox O2 Del Method 09/22/22 07:03 37 C 76 16 132/84 94 Room Air
[2022-09-22] MEDS: LORazepam 1 MG TAB PO PRN ×2 (15:29→20:05)
[2022-09-22] MEDS: TAMSULOSIN HCL 0.4 MG CAP PO SCH (20:06)
[2022-09-23] MEDS: LORazepam 1 MG TAB PO PRN ×3 (04:43→20:26)
[2022-09-23 07:38] LABS: BUN Creatinine Ratio 15.5 (10-20); Calcium 9.7 mg/dl (8.6-10.3); Creatinine Clr Calc Pharmacy 121.5 ml/min; Est GFR (African American) 130.4 ml/min; Est GFR (Non-African American) 112.5 ml/min; Phosphorus 3.8 mg/dl (2.5-4.9); Potassium 3.8 mmol/L (3.5-5.1)
[2022-09-23] MEDS: OXcarbazepine 150 MG TABLET PO SCH ×2 (09:35→19:55)
[2022-09-23] MEDS: DIVALPROEX EXTENDED RELEASE 500 MG TAB PO SCH ×2 (09:35→19:55)
[2022-09-23] MEDS: clonazePAM 1 MG TAB PO SCH (09:39)
--- NOTE | 2022-09-23 12:31 | Hospitalist Progress Note ---
Date of Service September 23, 2022 Assessment & Plan (1) Seizure: Plan: No more seizures (2) Schizoaffective disorder: Plan: Will need inpatient psychiatric care (3) Hypokalemia: (4) Hypophosphatemia: Plan Schizoaffective disorder/personality disorder/mood disorder, suboptimal following recent confinement of [facility] Appreciate psychiatry input and recommendation-on Depakote and oxcarbazepine for mood stabilization. Per psychiatry, 303 hearing was had on 09/18 for involuntary admission which was granted. Patient is still requiring one-to-one sitter and not yet cleared medically Restraints removed this morning, close monitor with 1:1 Medically stable-Will need inpatient psychiatric care Awaiting placement-not been aggressive but requires one-to-one sitter Recurrent seizures status post intubation for airway protection- Possibly from high-dose Zyprexa administration Patient self extubated 09/14/22 and has been stable on NC, now saturating well in room air Seen by neurology-recommends noted. Currently on Depakote and oxcarbazepine, also for his psychiatric issues EEG: Potentially abnormal awake/drowsy EEG with evidence of left parietal slowing and sharps. Would correlate with brain MRI. No evidence of persistent seizure activity. MRI brain 1. No acute infarct or intracranial hemorrhage. 2. The temporal lobes are symmetric. 3. A few punctate foci of T2 hyperintensity seen within the periventricular and subcortical white matter of the supratentorial brain. These are nonspecific but greater than expected for age. Therefore, this could represent early microvascular ischemic change, migraines, Lyme's disease, or less likely a demyelinating disease or vasculitis. No more seizures The patient remains stable on current medications Lyme serology negative No more seizures Electrolyte imbalance Hypokalemia-resolved Hypophosphatemia-resolved We will check electrolytes again-Remains normal Transient atrial flutter secondary to illness- Patient NSR post Cardizem administration at the ER. Echo reviewed-sinus rhythm in 80s, was on a mechanical ventilation during study, mild concentric LVH, apex was not well visualized otherwise LV wall motion is normal, LV was hyperdynamic and the EF was more than 70%. There is no significant tricuspid regurgitation and right ventricle is normal in size and function. Currently in sinus rhythm Elevated CK- only mildly elevated and already downtrending. Urinary retention pt continues to pull lang out required straight cath today trial flomax at HS, if continues consider urology consult Flomax has been working DVT prophylaxis. Lovenox subcu PCP: Poncho Mckeon MD Disposition: Needs admission to inpatient psych facility- bed search underway. Currently, Patient does not have decision making capacity to leave AMA Remains medically stable to be transferred to a psychiatric facility Admission and Anticipated Discharge Date Admission Date: September 14, 2022 Subjective Pt seem and examined in room 356-2. Follow up Schizoaffective d/o, seizure. Sitting at bedside eating breakfast. Nurse states having a much better morning. He pulled lang out, retaining 500cc today so had to be straight cathed 09/21/2022 The patient was seen and examined in medical floor He has been medically stable Still requiring one-to-one sitter-not being aggressive and has been listening 09/22/2022 The patient was seen and examined in medical floor He remained medically stable Still requiring one-to-one sitter for his psychiatric issues 09/23/2022 The patient was seen and examined in medical floor He has been stable and has not been requiring any restraint Still needs one-to-one sitter He has been sleeping throughout the morning Review of Systems Review of Systems: All systems reviewed and are unremarkable except as noted below Physical Exam Physical Exam: Lying in bed comfortably Constitutional: average body habitus; not ill appearing Eyes: PERRL, conjunctivae normal, anicteric sclerae ENMT: external ear and nose normal, oropharynx normal Neck: trachea midline, no thyromegaly Respiratory: no respiratory distress Auscultation: lungs clear to auscultation bilaterally Cardiovascular: Rate/Rhythm: regular rate and regular rhythm; not tachycardic Extremities: no edema Gastrointestinal (Abdomen): Inspection/Auscultation: normal bowel sounds; abdomen not distended Percussion/Palpation: abdomen soft; abdomen nontender Musculoskeletal: No acute arthritis involving any joint Neurologic: She starts shaking after starting conversation Lymphatic: no cervical or axillary lymphadenopathy Results & Data Results & Data Vital Signs (Past 12 Hours) Vital Signs Temp Pulse Resp BP Pulse Ox O2 Del Method 09/23/22 07:03 36.6 C 79 18 124/84 96 Room Air Laboratory Results BMP 09/23/22 06:57 Sodium 136 Potassium 3.8 Chloride 103 Carbon Dioxide 25 BUN 11 Creatinine 0.71 Glucose 126 H Calcium 9.7 Medications Administered Current Inpatient Medications Acetaminophen (Acetaminophen 500 Mg Tab) 500 mg PO Q6H PRN PRN Reason: pain/fever Stop: 10/15/22 19:55 Last Admin: 09/22/22 07:52 Dose: 500 mg Clonazepam (Clonazepam 1 Mg Tab) 1 mg PO DAILY CALI Stop: 10/15/22 08:59 Last Admin: 09/23/22 09:39 Dose: 1 mg Diphenhydramine HCl (Diphenhydramine Capsule 25 Mg Cap) 50 mg PO HS PRN PRN Reason: Anxiety/Insomnia Stop: 10/15/22 20:59 Last Admin: 09/21/22 20:20 Dose: 50 mg Divalproex Sodium (Divalproex Extended Release 500 Mg Tab) 500 mg PO DAILY CALI Stop: 10/15/22 08:59 Last Admin: 09/23/22 09:35 Dose: 500 mg Haloperidol (Haloperidol 5 Mg Tab) 5 mg PO Q12H PRN PRN Reason: Agitation Stop: 10/15/22 01:55 Last Admin: 09/22/22 21:43 Dose: 5 mg Ibuprofen (Ibuprofen 200 Mg Tab) 400 mg PO TID PRN PRN Reason: pain, headache Stop: 10/16/22 11:47 Last Admin: 09/21/22 02:45 Dose: 400 mg Lorazepam (Lorazepam 1 Mg Tab) 1 mg PO Q4H PRN PRN Reason: Anxiety Stop: 10/22/22 11:45 Last Admin: 09/23/22 04:43 Dose: 1 mg Ondansetron HCl (Ondansetron Inj 2 Mg/Ml 2 Ml Vial) 4 mg IV Q6H PRN PRN Reason: Nausea And Vomiting Stop: 10/16/22 12:04 Last Admin: 09/21/22 09:00 Dose: 4 mg Oxcarbazepine (Oxcarbazepine 150 Mg Tablet) 750 mg PO BID CALI Stop: 10/14/22 23:44 Last Admin: 09/23/22 09:35 Dose: 750 mg Tamsulosin HCl (Tamsulosin Hcl 0.4 Mg Cap) 0.4 mg PO HS CALI Stop: 10/20/22 11:18 Last Admin: 09/22/22 20:06 Dose: 0.4 mg
--- NOTE | 2022-09-23 14:06 | Psychiatric Progress Note ---
Date of Service September 23, 2022 Impression / Recommendations Impression 47 y/o man with schizoaffective disorder, bipolar type who's been off his medication and who recently had seizures in the ED in the context of having been off his high-dose anticonvulsants and benzodiazepine and having been administered olanzapine. Has been improving since restarting his medications with no further seizures and remains medically stable. On 303 commitment awaiting inpatient psychiatric placement. 09/23/2022: Ongoing poor sleep and odd statements at times but overall pleasant and cooperative with care, taking po medications and showing signs of lessening of priscila. Will continue with depakote titration to further target poor sleep and priscila as this was previously beneficial and he denies any side effects to this. He cannot tolerate full discussion of risks/benefits at this time given ongoing poor attention and limited insight. The patient remains hospitalized on a completed 303 involuntary commitment. This patient must remain on safety precautions with a 1-on-1 and is unable to leave the hospital AMA. (1) Schizoaffective disorder, bipolar type: Plan 09/23/2022: * Ongoing bed search. * Requires 1-on-1 due to 303 commitment, cannot leave AMA * Increase Depakote ER to 500mg BID * Continue Klonopin 1mg daily, Oxcarbazepine 750mg BID * Haldol 5mg BID prn po for psychosis/agitation 09/22/2022: Requires psychiatric admission. Bed search continues. Please do consider titrating divalproex. It would be appropriate to check trough levels of valproate and oxcarbazepine to assess whether they're in the therapeutic range. 09/21/2022: Requires psychiatric admission. Bed search is underway. 09/20/2022: Based on pt's presentation today, I can only recommend staying the current course in terms of psychiatric treatment. He will still require psychiatric admission once medically stable. 09/19/2022: By history, pt has required much higher divalproex ER dose (3,000 mg/day), along with oxcarbazepine, to suppress priscila and seizures. If he can't tolerate whole divalproex ER tablets, divalproex or valproic acid could be used with a target dose of 2,000 mg/day. In either case, dose should be titrated to a target blood level in the range of 85-125 g/mL. 09/18/2022: Pt is now subject to a section 303 involuntary commitment. He must remain in the hospital on 1:1 observation until he's determined to be medically stable. At that time, a psychiatric bed search will need to be undertaken. Consider more aggressive titration of divalproex. 09/17/2022: Continue current medication regimen. Pt will require a hearing to enable continuing hospitalization (because he certainly can't be discharged to home). 09/16/2022: Since pt clearly needs both antiepileptic and antimanic pharmacotherapy, it would seem eminently reasonable to resume the divalproex and oxcarbazepine he'd previously been taking. I agree with your decision not to resume the 3,000mg/day divalproex ER and 1,200 mg/day oxcarbazepine doses right away, but would suggest titrating as aggressively as tolerated. Note that divalproex ER is not equally bioavailable as IR divalproex. If it's necessary to crush tablets or use any do naseem form other than ER, total dose may need to be 20-25% lower than with the ER form. With divalproex, the target antimanic range of blood level is 85-125 g/mL (higher than the typical therapeutic range for seizure control of 50-100 g/mL) and dose should be titrated based on blood level. For oxcarbazepine there is fairly scant published data about therapeutic blood level for priscila, but for carbamazepine it's fairly clear that the target range is the same as for seizure control, so oxcarbazepine dose should be titrated to usual antiepileptic blood level. Pt was on fairly high-dose (4 mg/day) clonazepam until some unknown time prior to admission, and it's possible that some of the waxing and waning cognition we're seeing could represent a degree of benzodiazepine withdrawal. It's also ob viously antiepileptic and wouldn't require titration via blood level, so I recommend resuming 2 mg BID. If pt won't accept oral medication, clonazepam is essentially equipotent with lorazepam, though doses of the latter would need to be divided due to shorter half-life (e.g., 1 mg QID). If pt requires parenteral antipsychotic medication due to potentially dangerous behavior appearing to arise from psychosis, haloperidol would appear to be the safest option (administeredwithoutdiphenhydramine due to the reported intolerance). This could be given as haloperidol 5 mg IM and lorazepam 2 mg IM q8 hr PRN psychosis. An administrative decision has previously been made that pt is not a candidate for admission to the psychiatric unit at [facility]. He certainly will require psychiatric hospitalization. A bed search is underway, but if he is still here on Sunday he will need a commitment hearing if he is to remain in the hospital involuntarily any longer. With respect to his involuntary status, it is my opinion that at present Mr. Becker does not have the capacity to make rational and informed decisions about healthcare so, even if he were to agree to remain in the hospital, we would not be able to use such agreement as informed consent and will continue to need to rely on the legal mechanisms for involuntary admission. Suicide Risk Level Suicide Risk Level: Low (q15 min observation checks) (any risk is due to disorganized behavior rather than suicidality as he consistently denies SI, remains on -on- due to being on medical floor and on 303 commitment) Risk Factors Assessment Male: Yes : Yes Do You Have Access To A Gun?: No Health Problems: Yes Mental Health Diagnoses: Yes Previous Psychiatric Hospitalization: Yes Protective Factors Assessment Responsible for Young Children: No Employed: No Stable Relationships: No Interval History Identifying Information ROGER BECKER is a 47-year-old male with a history of schizoaffective disorder, a dmitted on 09/14/2022 for seizures. Consult is by the hospitalist service for psychosis. Chief Complaint "A little better today". Review of Systems Notes poor sleep, eating Subjective Subjective Patient was seen & assessed and interval progress reviewed. Roger has been adherent with his medications. Accepted prn haldol dose last night. Has not required any IM medications/no behavioral emergencies. His mother is at bedside. Both understand ongoing bed search. His mother wonders if due to his medicaid he could be treated like an inpatient psychiatry patient as an "overflow" on the medical floor so he wouldn't need to move anywhere, discussed this was not possible. Roger makes a few odd comments such as suddenly stating in the middle of our discussion "look, that's how my toes bend". Denies any physical symptoms. Ongoing poor sleep, or as he puts it "I've been looking better in the daytime". Physical Exam Psychiatric Orientation: alert, oriented x 3 and cooperative Apperance: + disheveled Eye Contact: + fair eye contact Motor Behavior: + tremor Speech: no pressured speech and no loud speech Affect: euthymic affect Mood: + dysphoric mood Thought Process: + tangential thought process Thought Content: reality based without delusions Suicidal Thoughts: denies suicidal thoughts, denies suicidal plan and denies suicidal intent Homicidal Thoughts: denies homicidal thoughts Hallucinations: no auditory hallucinations and no visual hallucinations Cognition: recent memory grossly intact, remote memory grossly intact and language grossly intact; + attention not intact Estimated Intelligence: average estimated intelligence Insight: + limited insight Judgment: + limited judgement Vital Signs (Past 24 Hours) Last Vital Signs Temp 36.6 C 09/23/22 07:03 Pulse 79 09/23/22 07:03 Resp 18 09/23/22 07:03 BP 124/84 09/23/22 07:03 Pulse Ox 96 09/23/22 07:03 O2 Del Method Room Air 09/23/22 07:03 O2 Flow Rate 2 09/15/22 21:48 FiO2 30 09/14/22 22:35 Results & Data ([facility]) Laboratory Results Laboratory Results - last 24 hr 09/23/22 06:57 Sodium 136 Potassium 3.8 Chloride 103 Carbon Dioxide 25 Anion Gap 8 BUN 11 Creatinine 0.71 Est Cr Clr Drug Dosing 121.5 Est GFR ( Amer) 130.4 Est GFR (Non-Af Amer) 112.5 BUN/Creatinine Ratio 15.5 Glucose 126 H Calcium 9.7 Phosphorus 3.8 Magnesium 2.0 Current Inpatient Medications Current Inpatient Medications: Current Inpatient Medications Acetaminophen (Acetaminophen 500 Mg Tab) 500 mg PO Q6H PRN PRN Reason: pain/fever Stop: 10/15/22 19:55 Last Admin: 09/22/22 07:52 Dose: 500 mg Clonazepam (Clonazepam 1 Mg Tab) 1 mg PO DAILY CALI Stop: 10/15/22 08:59 Last Admin: 09/23/22 09:39 Dose: 1 mg Diphenhydramine HCl (Diphenhydramine Capsule 25 Mg Cap) 50 mg PO HS PRN PRN Reason: Anxiety/Insomnia Stop: 10/15/22 20:59 Last Admin: 09/21/22 20:20 Dose: 50 mg Divalproex Sodium (Divalproex Extended Release 500 Mg Tab) 500 mg PO DAILY CALI Stop: 10/15/22 08:59 Last Admin: 09/23/22 09:35 Dose: 500 mg Haloperidol (Haloperidol 5 Mg Tab) 5 mg PO Q12H PRN PRN Reason: Agitation Stop: 10/15/22 01:55 Last Admin: 09/22/22 21:43 Dose: 5 mg Ibuprofen (Ibuprofen 200 Mg Tab) 400 mg PO TID PRN PRN Reason: pain, headache Stop: 10/16/22 11:47 Last Admin: 09/21/22 02:45 Dose: 400 mg Lorazepam (Lorazepam 1 Mg Tab) 1 mg PO Q4H PRN PRN Reason: Anxiety Stop: 10/22/22 11:45 Last Admin: 09/23/22 04:43 Dose: 1 mg Ondansetron HCl (Ondansetron Inj 2 Mg/Ml 2 Ml Vial) 4 mg IV Q6H PRN PRN Reason: Nausea And Vomiting Stop: 10/16/22 12:04 Last Admin: 09/21/22 09:00 Dose: 4 mg Oxcarbazepine (Oxcarbazepine 150 Mg Tablet) 750 mg PO BID CALI Stop: 10/14/22 23:44 Last Admin: 09/23/22 09:35 Dose: 750 mg Tamsulosin HCl (Tamsulosin Hcl 0.4 Mg Cap) 0.4 mg PO HS CALI Stop: 10/20/22 11:18 Last Admin: 09/22/22 20:06 Dose: 0.4 mg Mental Health & Subst Abuse Tx Therapist Name of Therapist: Mat Ch @ [facility] (?) Patient Services Coordinator Name of Patient Services Coordinator: Joann santiago [place] [facility] Post Discharge Appointments Primary Care Physician Name Of Family Doctor/PCP: Lico De Jesus
[2022-09-23] MEDS: ACETAMINOPHEN 500 MG TAB PO PRN (14:42)
[2022-09-23] MEDS: diphenhydrAMINE Capsule 25 MG CAP PO PRN (19:54)
[2022-09-23] MEDS: haloperidoL 5 MG TAB PO PRN (19:56)
[2022-09-23] MEDS: TAMSULOSIN HCL 0.4 MG CAP PO SCH (19:56)
[2022-09-24] MEDS: LORazepam 1 MG TAB PO PRN ×3 (04:36→16:02)
[2022-09-24] MEDS: OXcarbazepine 150 MG TABLET PO SCH ×2 (10:03→19:59)
[2022-09-24] MEDS: DIVALPROEX EXTENDED RELEASE 500 MG TAB PO SCH ×2 (10:03→19:59)
[2022-09-24] MEDS: clonazePAM 1 MG TAB PO SCH ×2 (10:04→20:01)
--- NOTE | 2022-09-24 10:05 | Psychiatric Progress Note ---
Date of Service September 24, 2022 Impression / Recommendations Impression 47 y/o man with schizoaffective disorder, bipolar type who's been off his medication and who recently had seizures in the ED in the context of having been off his high-dose anticonvulsants and benzodiazepine and having been administered olanzapine. Has been improving since restarting his medications with no further seizures and remains medically stable. On 303 commitment awaiting inpatient psychiatric placement. 09/24/2022: Ongoing poor sleep but napping this morning for about 4 hours so far today. Seems to respond well to prn haldol, will increase frequency of this. Given some increased urinary retention will discontinue benadryl and start ativan at HS to help with sleep. Ongoing symptoms of acute priscila. The patient remains hospitalized on a completed 303 involuntary commitment. This patient must remain on safety precautions with a 1-on-1 and is unable to leave the hospital AMA. (1) Schizoaffective disorder, bipolar type: Plan 09/24/2022: * Ongoing bed search. * Requires 1-on-1 due to 303 commitment, cannot leave AMA * Continue with Depakote ER 500mg BID, likely increase again in 2-3 days * Increase Klonopin to 1mg BID * Continue Oxcarbazepine 750mg BID * Haldol 5mg TID prn po for psychosis/agitation 09/23/2022: * Ongoing bed search. * Requires 1-on-1 due to 303 commitment, cannot leave AMA * Increase Depakote ER to 500mg BID * Continue Klonopin 1mg daily, Oxcarbazepine 750mg BID * Haldol 5mg BID prn po for psychosis/agitation 09/22/2022: Requires psychiatric admission. Bed search continues. Please do consider titrating divalproex. It would be appropriate to check trough levels of valproate and oxcarbazepine to assess whether they're in the therapeutic range. 09/21/2022: Requires psychiatric admission. Bed search is underway. 09/20/2022: Based on pt's presentation today, I can only recommend staying the current course in terms of psychiatric treatment. He will still require psychiatric admission once medically stable. 09/19/2022: By history, pt has required much higher divalproex ER dose (3,000 mg/day), along with oxcarbazepine, to suppress priscila and seizures. If he can't tolerate whole divalproex ER tablets, divalproex or valproic acid could be used with a target dose of 2,000 mg/day. In either case, dose should be titrated to a target blood level in the range of 85-125 g/mL. 09/18/2022: Pt is now subject to a section 303 involuntary commitment. He must remain in the hospital on 1:1 observation until he's determined to be medically stable. At that time, a psychiatric bed search will need to be undertaken. Consider more aggressive titration of divalproex. 09/17/2022: Continue current medication regimen. Pt will require a hearing to enable continuing hospitalization (because he certainly can't be discharged to home). 09/16/2022: Since pt clearly needs both antiepileptic and antimanic pharmacotherapy, it would seem eminently reasonable to resume the divalproex and oxcarbazepine he'd previously been taking. I agree with your decision not to resume the 3,000mg/day divalproex ER and 1,200 mg/day oxcarbazepine doses right away, but would suggest titrating as aggressively as tolerated. Note that divalproex ER is not equally bioavailable as IR divalproex. If it's necessary to crush tablets or use any dosage form other than ER, total dose may need to be 20-25% lower than with the ER form. With divalproex, the target antimanic range of blood level is 85-125 g/mL (higher than the typical therapeutic range for seizure control of 50-100 g/mL) and dose should be titrated based on blood level. For oxcarbazepine there is fairly scant published data about therapeutic blood level for priscila, but for carbamazepine it's fairly clear that the target range is the same as for seizure control, so oxcarbazepine dose should be titrated to usual antiepileptic blood level. Pt was on fairly high-dose (4 mg/day) clonazepam until some unknown time prior to admission, and it's possible that some of the waxing and waning cognition we're seeing could represent a degree of benzodiazepine withdrawal. It's also obviously antiepileptic and wouldn't require titration via blood level, so I recommend resuming 2 mg BID. If pt won't accept oral medication, clonazepam is essentially equipotent with lorazepam, though doses of the latter would need to be divided due to shorter half-life (e.g., 1 mg QID). If pt requires parenteral antipsychotic medication due to potentially dangerous behavior appearing to arise from psychosis, haloperidol would appear to be the safest option (administeredwithoutdiphenhydramine due to the reported intolerance). This could be given as haloperidol 5 mg IM and lorazepam 2 mg IM q8 hr PRN psychosis. An administrative decision has previously been made that pt is not a candidate for admission to the psychiatric unit at [facility]. He certainly will require psychiatric hospitalization. A bed search is underway, but if he is still here on Sunday he will need a commitment hearing if he is to remain in the hospital involuntarily any longer. With respect to his involuntary status, it is my opinion that at present Mr. Becker does not have the capacity to make rational and informed decisions about healthcare so, even if he were to agree to remain in the hospital, we would not be able to use such agreement as informed consent and will continue to need to rely on the legal mechanisms for involuntary admission. Suicide Risk Level Suicide Risk Level: Low (q15 min observation checks) (any risk is due to disorganized behavior rather than suicidality as he consistently denies SI, remains on due to being on medical floor and on 303 commitment) Risk Factors Assessment Male: Yes : Yes Do You Have Access To A Gun?: No Health Problems: Yes Mental Health Diagnoses: Yes Previous Psychiatric Hospitalization: Yes Protective Factors Assessment Responsible for Young Children: No Employed: No Stable Relationships: No Interval History Identifying Information ROGER BECKER is a 47-year-old male with a history of schizoaffective disorder, admitted on 09/14/2022 for seizures. Consult is by the hospitalist service for psychosis. Chief Complaint mute/sleeping Review of Systems Notes poor sleep, eating well Subjective Subjective Patient was seen & assessed and interval progress reviewed. More escalated last evening and trying to leave by going into the hallway. Redirected by his -- and psych liason. Was very hyperverbal and with word salad during interaction with psych liason. He accepted haldol po last evening and benadryl prn. Was awake all night but got prn ativan po at 4:30am and has been sleeping since. When I attempted to see him at 10am he was still sleeping and given therapeutic benefits of sleep did not wake him. Physical Exam Psychiatric Orientation: alert, oriented x 3 and cooperative Apperance: + disheveled Eye Contact: + poor eye contact Speech: + mute Affect: + labile affect Mood: + dysphoric mood Vital Signs (Past 24 Hours) Last Vital Signs Temp 36.8 C 09/24/22 08:03 Pulse 80 09/24/22 08:03 Resp 18 09/24/22 08:03 BP 136/80 09/24/22 08:03 Pulse Ox 97 09/24/22 08:03 O2 Del Method Room Air 09/24/22 08:03 O2 Flow Rate 2 09/15/22 21:48 FiO2 30 09/14/22 22:35 Results & Data ([facility]) Current Inpatient Medications Current Inpatient Medications: Current Inpatient Medications Acetaminophen (Acetaminophen 500 Mg Tab) 500 mg PO Q6H PRN PRN Reason: pain/fever Stop: 10/15/22 19:55 Last Admin: 09/23/22 14:42 Dose: 500 mg Clonazepam (Clonazepam 1 Mg Tab) 1 mg PO DAILY CALI Stop: 10/15/22 08:59 Last Admin: 09/23/22 09:39 Dose: 1 mg Diphenhydramine HCl (Diphenhydramine Capsule 25 Mg Cap) 50 mg PO HS PRN PRN Reason: Anxiety/Insomnia Stop: 10/15/22 20:59 Last Admin: 09/23/22 19:54 Dose: 50 mg Divalproex Sodium (Divalproex Extended Release 500 Mg Tab) 500 mg PO BID CALI Stop: 10/23/22 20:59 Last Admin: 09/23/22 19:55 Dose: 500 mg Haloperidol (Haloperidol 5 Mg Tab) 5 mg PO Q12H PRN PRN Reason: Agitation Stop: 10/15/22 01:55 Last Admin: 09/23/22 19:56 Dose: 5 mg Ibuprofen (Ibuprofen 200 Mg Tab) 400 mg PO TID PRN PRN Reason: pain, headache Stop: 10/16/22 11:47 Last Admin: 09/21/22 02:45 Dose: 400 mg Lorazepam (Lorazepam 1 Mg Tab) 1 mg PO Q4H PRN PRN Reason: Anxiety Stop: 10/22/22 11:45 Last Admin: 09/24/22 04:36 Dose: 1 mg Ondansetron HCl (Ondansetron Inj 2 Mg/Ml 2 Ml Vial) 4 mg IV Q6H PRN PRN Reason: Nausea And Vomiting Stop: 10/16/22 12:04 Last Admin: 09/21/22 09:00 Dose: 4 mg Oxcarbazepine (Oxcarbazepine 150 Mg Tablet) 750 mg PO BID CALI Stop: 10/14/22 23:44 Last Admin: 09/23/22 19:55 Dose: 750 mg Tamsulosin HCl (Tamsulosin Hcl 0.4 Mg Cap) 0.4 mg PO HS CALI Stop: 10/20/22 11:18 Last Admin: 09/23/22 19:56 Dose: 0.4 mg Mental Health & Subst Abuse Tx Therapist Name of Therapist: Mat Ch @ [facility] Clear (?) Scrubbing Machine Operator Name of Scrubbing Machine Operator: Joann santiago [facility] Post Discharge Appointments Primary Care Physician Name Of Family Doctor/PCP: Lico De Jesus
[2022-09-24] MEDS ORDERED: BENZTROPINE MESYLATE 1 MG TAB PO PRN (10:19)
[2022-09-24] MEDS ORDERED: clonazePAM 1 MG TAB PO SCH (10:20)
[2022-09-24] MEDS: haloperidoL 5 MG TAB PO PRN ×2 (12:16→19:36)
--- NOTE | 2022-09-24 13:29 | Hospitalist Progress Note ---
Date of Service September 24, 2022 Assessment & Plan (1) Seizure: Plan: No more seizures (2) Schizoaffective disorder: Plan: Will need inpatient psychiatric care (3) Hypokalemia: (4) Hypophosphatemia: Plan Schizoaffective disorder/personality disorder/mood disorder, suboptimal following recent confinement of [facility] Appreciate psychiatry input and recommendation-on Depakote and oxcarbazepine for mood stabilization. Per psychiatry, 303 hearing was had on 09/18 for involuntary admission which was granted. Patient is still requiring one-to-one sitter and not yet cleared medically Restraints removed this morning, close monitor with 1:1 Medically stable-Will need inpatient psychiatric care Awaiting placement-not been aggressive but requires one-to-one sitter Medically stable with ongoing psychiatric issues Recurrent seizures status post intubation for airway protection- Possibly from high-dose Zyprexa administration Patient self extubated 09/14/22 and has been stable on NC, now saturating well in room air Seen by neurology-recommends noted. Currently on Depakote and oxcarbazepine, also for his psychiatric issues EEG: Potentially abnormal awake/drowsy EEG with evidence of left parietal slowing and sharps. Would correlate with brain MRI. No evidence of persistent seizure activity. MRI brain 1. No acute infarct or intracranial hemorrhage. 2. The temporal lobes are symmetric. 3. A few punctate foci of T2 hyperintensity seen within the periventricular and subcortical white matter of the supratentorial brain. These are nonspecific but greater than expected for age. Therefore, this could represent early microvascular ischemic change, migraines, Lyme's disease, or less likely a demyelinating disease or vasculitis. No more seizures The patient remains stable on current medications Lyme serology negative No more seizures Electrolyte imbalance Hypokalemia-resolved Hypophosphatemia-resolved We will check electrolytes again-Remains normal Transient atrial flutter secondary to illness- Patient NSR post Cardizem administration at the ER. Echo reviewed-sinus rhythm in 80s, was on a mechanical ventilation during study, mild concentric LVH, apex was not well visualized otherwise LV wall motion is normal, LV was hyperdynamic and the EF was more than 70%. There is no significant tricuspid regurgitation and right ventricle is normal in size and function. Currently in sinus rhythm Elevated CK- only mildly elevated and already downtrending. Urinary retention pt continues to pull lang out required straight cath today trial flomax at HS, if continues consider urology consult Flomax has been working-minimal urinary symptoms resolved spontaneously Benadryl and Klonopin have been discontinued which will help urinary symptoms a bit DVT prophylaxis. Lovenox subcu PCP: Poncho Mckeon MD Disposition: Needs admission to inpatient psych facility- bed search underway. Currently, Patient does not have decision making capacity to leave AMA Remains medically stable to be transferred to a psychiatric facility Admission and Anticipated Discharge Date Admission Date: September 14, 2022 Subjective Pt seem and examined in room 356-2. Follow up Schizoaffective d/o, seizure. Sitting at bedside eating breakfast. Nurse states having a much better morning. He pulled lang out, retaining 500cc today so had to be straight cathed 09/21/2022 The patient was seen and examined in medical floor He has been medically stable Still requiring one-to-one sitter-not being aggressive and has been listening 09/22/2022 The patient was seen and examined in medical floor He remained medically stable Still requiring one-to-one sitter for his psychiatric issues 09/23/2022 The patient was seen and examined in medical floor He has been stable and has not been requiring any restraint Still needs one-to-one sitter He has been sleeping throughout the morning 09/24/2022 The patient was seen and examined in medical floor He has been stable and still requiring one-to-one sitter Has a problem with urination last night but has been voiding normally His clonazepam and Benadryl have been discontinued by the psychiatrist Review of Systems Review of Systems: All systems reviewed and are unremarkable except as noted below Physical Exam Physical Exam: Lying in bed comfortably Constitutional: average body habitus; not ill appearing Eyes: PERRL, conjunctivae normal, anicteric sclerae ENMT: external ear and nose normal, oropharynx normal Neck: trachea midline, no thyromegaly Respiratory: no respiratory distress Auscultation: lungs clear to auscultation bilaterally Cardiovascular: Rate/Rhythm: regular rate and regular rhythm; not tachycardic Extremities: no edema Gastrointestinal (Abdomen): Inspection/Auscultation: normal bowel sounds; abdomen not distended Percussion/Palpation: abdomen soft; abdomen nontender Musculoskeletal: No acute arthritis involving any joint Neurologic: Alert and awake. Pleasantly confused. Has shakes involving the whole body and extremities specially during conversation Lymphatic: no cervical or axillary lymphadenopathy Results & Data Results & Data Vital Signs (Past 12 Hours) Vital Signs Temp Pulse Resp BP Pulse Ox O2 Del Method 09/24/22 11:47 68 09/24/22 10:05 37.0 C 20 145/91 H 94 Room Air 09/24/22 08:03 36.8 C 80 18 136/80 97 Room Air Medications Administered Current Inpatient Medications Acetaminophen (Acetaminophen 500 Mg Tab) 500 mg PO Q6H PRN PRN Reason: pain/fever Stop: 10/15/22 19:55 Last Admin: 09/23/22 14:42 Dose: 500 mg Benztropine Mesylate (Benztropine Mesylate 1 Mg Tab) 1 mg PO BID PRN PRN Reason: muscle stiffness Stop: 10/24/22 20:59 Clonazepam (Clonazepam 1 Mg Tab) 1 mg PO BID [facility] Stop: 10/24/22 20:59 Divalproex Sodium (Divalproex Extended Release 500 Mg Tab) 500 mg PO BID [facility] Stop: 10/23/22 20:59 Last Admin: 09/24/22 10:03 Dose: 500 mg Haloperidol (Haloperidol 5 Mg Tab) 5 mg PO TID PRN PRN Reason: Agitation/psychosis Stop: 10/15/22 01:55 Last Admin: 09/24/22 12:16 Dose: 5 mg Ibuprofen (Ibuprofen 200 Mg Tab) 400 mg PO TID PRN PRN Reason: pain, headache Stop: 10/16/22 11:47 Last Admin: 09/21/22 02:45 Dose: 400 mg Lorazepam (Lorazepam 1 Mg Tab) 1 mg PO Q4H PRN PRN Reason: Anxiety Stop: 10/22/22 11:45 Last Admin: 09/24/22 10:29 Dose: 1 mg Ondansetron HCl (Ondansetron Inj 2 Mg/Ml 2 Ml Vial) 4 mg IV Q6H PRN PRN Reason: Nausea And Vomiting Stop: 10/16/22 12:04 Last Admin: 09/21/22 09:00 Dose: 4 mg Oxcarbazepine (Oxcarbazepine 150 Mg Tablet) 750 mg PO BID [facility] Stop: 10/14/22 23:44 Last Admin: 09/24/22 10:03 Dose: 750 mg Tamsulosin HCl (Tamsulosin Hcl 0.4 Mg Cap) 0.4 mg PO [facility] Stop: 10/20/22 11:18 Last Admin: 09/23/22 19:56 Dose: 0.4 mg
[2022-09-24] MEDS: ACETAMINOPHEN 500 MG TAB PO PRN (13:51)
[2022-09-24] MEDS ORDERED: HALOPERIDOL LACTATE 5 MG/ML 1 ML VIAL IM STA (19:34)
[2022-09-24] MEDS ORDERED: LORazepam 2 MG/1 ML VIAL IV PRN (19:48)
[2022-09-24] MEDS: TAMSULOSIN HCL 0.4 MG CAP PO SCH (19:59)
[2022-09-24] MEDS: LORazepam 2 MG/1 ML VIAL IV PRN (20:30)
--- NOTE | 2022-09-25 00:42 | Communication Note ---
Date of Service: September 25, 2022 Patient with tachycardia and hypoxemic episodes associated with agitation/shaking. Medical telemetry transfer for closer monitoring.
[2022-09-25] MEDS ORDERED: METOPROLOL TARTRATE 1 MG/ML VIAL IV STA (00:46)
[2022-09-25 02:15] LABS: Base Excess ABG 1.5 mEq/L (-9-1.8); HCO3 ABG 25 mmol/L (19-24); Oxygen Saturation ABG 99.2 % (90-95); PCO2 ABG 34 mmHg (35-46); PO2 ABG 111 mmHg (80-95); pH ABG 7.47 (7.35-7.45)
[2022-09-25 02:23] LABS: Basophils # (auto) 0.03 K/uL (0-0.2); Basophils % (auto) 0.4 %; Eosinophils # (auto) 0.01 K/uL (0-0.50); Eosinophils % (auto) 0.1 %; Hematocrit (blood only) 35.7 % (42.0-52.0); Hemoglobin 12.5 g/dl (14.0-18.0); Immature Granulocytes # (auto) 0.02 K/uL (0.01-0.20); Immature Granulocytes % (auto) 0.3 %; Lymphocytes # (auto) 2.25 K/uL (1.2-3.4); Lymphocytes % (auto) 31.6 %; Mean Corpuscular Hemoglobin 31.5 pg (25.0-34.0); Mean Corpuscular Volume 89.9 fL (80.0-100.0); Mean Platelet Volume 8.7 fL (9.4-12.4); Monocytes # (auto) 0.89 K/uL (0.11-0.59); Monocytes % (auto) 12.5 %; Neutrophils # (auto) 3.91 K/uL (1.40-6.50); Neutrophils % (auto) 55.1 %; Platelet Count 388 K/uL (130-400); RDW Coefficient of Variation 12.7 % (11.5-14.5); RDW Standard Deviation 41.5 fL (36.4-46.3); Red Blood Count 3.97 M/uL (4.70-6.10); White Blood Count 7.11 K/ul (4.8-10.8)
[2022-09-25 02:37] LABS: Albumin Globulin Ratio 1.4 (0.9-2); Albumin Level 3.9 gm/dl (3.4-5.0); BUN Creatinine Ratio 18.1 (10-20); Bilirubin,Total 0.3 mg/dl (0.2-1.0); Calcium 9.3 mg/dl (8.6-10.3); Creatinine Clr Calc Pharmacy 119.9 ml/min; Est GFR (African American) 129.7 ml/min; Est GFR (Non-African American) 111.9 ml/min; Globulin 2.7 gm/dl (2.5-4.0); Magnesium 2.1 mg/dl (1.7-2.4); Potassium 3.9 mmol/L (3.5-5.1); Total Protein 6.6 gm/dl (6.0-8.3)
[2022-09-25 02:38] LABS: Allen Test Pos (Pos)
[2022-09-25 02:50] LABS: Partial Thromboplastin Ratio 0.9; Partial Thromboplastin Time 24.2 Seconds (21.0-31.0)
[2022-09-25] MEDS ORDERED: LACTATED RINGER'S 1,000 ML IV ONE (02:59)
[2022-09-25] MEDS: LORazepam 2 MG/1 ML VIAL IV PRN (03:06)
--- NOTE | 2022-09-25 07:31 | XRay Report ---
SINGLE VIEW CHEST CLINICAL HISTORY: Hypoxia. Tachycardia FINDINGS: 2 AP, portable, upright supine radiographs are compared to study dated 09/14/2022. Endotrache al and enteric tubes have been removed. The cardiomediastinal silhouette is unremarkable. The lungs a nd pleural spaces are clear. No pneumothorax is seen. The bony thorax is grossly intact. IMPRESSION: 1. Endotracheal and enteric tubes have been removed. 2. The lungs are clear. ACT 112: Negative or not required by law. Electronically signed by: Juan Ferguson M.D. 09/25/2022 7:30 AM
[2022-09-25] MEDS: OXcarbazepine 150 MG TABLET PO SCH ×2 (08:11→20:50)
[2022-09-25] MEDS: DIVALPROEX EXTENDED RELEASE 500 MG TAB PO SCH ×2 (08:11→20:45)
[2022-09-25] MEDS: LORazepam 1 MG TAB PO PRN ×2 (08:11→13:37)
[2022-09-25] MEDS: clonazePAM 1 MG TAB PO SCH ×2 (08:11→20:44)
--- NOTE | 2022-09-25 08:51 | Electrocardiogram Report ---
Test Reason : Blood Pressure : / mmHG Vent. Rate : 077 BPM Atrial Rate : 077 BPM P-R Int : 168 ms QRS Dur : 084 ms QT Int : 380 ms P-R-T Axes : 000 095 139 degrees QTc Int : 430 ms Normal sinus rhythm Lateral infarct , age undetermined ST segment changes concerning for ischemia Abnormal ECG When compared with ECG of 14-SEP-2022 05:27, Sinus rhythm has replaced Atrial flutter Vent. rate has decreased BY [address] elevation has replaced ST depression in Inferior leads ST elevation has replaced ST depression in Anterior leads T wave inversion now evident in Lateral leads Confirmed by Vic Valera ([id number]) on 09/25/2022 8:50:35 AM Referred By: REFERRED SELF Confirmed By:Lamine Valera
--- NOTE | 2022-09-25 14:26 | Psychiatric Progress Note ---
Date of Service September 25, 2022 Impression / Recommendations Impression 47 y/o man with schizoaffective disorder, bipolar type who's been off his medication and who recently had seizures in the ED in the context of having been off his high-dose anticonvulsants and benzodiazepine and having been administered olanzapine. Has been improving since restarting his medications with no further seizures and remains medically stable. On 303 commitment awaiting inpatient psychiatric placement. 09/25/2022:Ongoing acute priscila and psychosis with clanging, loosened associations and periods of acute agitation intermittently which seem to be related to delusions and last night seemed to be driven by beliefs that his blood was being taken by the IV. Depakote level last night, which wasn't true trough and actually would be expected to be elevated after HS Depakote, was sub-therapeutic at 49. ALT downtrending and AST stable so felt to be safe to increase Depakote. The patient remains hospitalized on a completed 303 involuntary commitment. This patient must remain on safety precautions with a 1-on-1 and is unable to leave the hospital AMA. 303 expires on 10/08/2022. (1) Schizoaffective disorder, bipolar type: Plan 09/25/2022: * Ongoing bed search. * Requires 1-on-1 due to 303 commitment, cannot leave AMA * Increase to Depakote ER 500mg qAM and Depakote ER 1000mg HS * Continue Klonopin to 1mg BID * Continue Oxcarbazepine 750mg BID * Haldol 5mg TID prn po for psychosis/agitation 09/24/2022: * Ongoing bed search. * Requires 1-on-1 due to 303 commitment, cannot leave AMA * Continue with Depakote ER 500mg BID, likely increase again in 2-3 days * Increase Klonopin to 1mg BID * Continue Oxcarbazepine 750mg BID * Haldol 5mg TID prn po for psychosis/agitation 09/23/2022: * Ongoing bed search. * Requires 1-on-1 due to 303 commitment, cannot leave AMA * Increase Depakote ER to 500mg BID * Continue Klonopin 1mg daily, Oxcarbazepine 750mg BID * Haldol 5mg BID prn po for psychosis/agitation 09/22/2022: Requires psychiatric admission. Bed search continues. Please do consider titrating divalproex. It would be appropriate to check trough levels of valproate and oxcarbazepine to assess whether they're in the therapeutic range. 09/21/2022: Requires psychiatric admission. Bed search is underway. 09/20/2022: Based on pt's presentation today, I can only recommend staying the current course in terms of psychiatric treatment. He will still require psychiatric admission once medically stable. 09/19/2022: By history, pt has required much higher divalproex ER dose (3,000 mg/day), along with oxcarbazepine, to suppress priscila and seizures. If he can't tolerate whole divalproex ER tablets, divalproex or valproic acid could be used with a target dose of 2,000 mg/day. In either case, dose should be titrated to a target blood level in the range of 85-125 g/mL. 09/18/2022: Pt is now subject to a section 303 involuntary commitment. He must remain in the hospital on 1:1 observation until he's determined to be medically stable. At that time, a psychiatric bed search will need to be undertaken. Consider more aggressive titration of divalproex. 09/17/2022: Continue current medication regimen. Pt will require a hearing to enable continuing hospitalization (because he certainly can't be discharged to home). 09/16/2022: Since pt clearly needs both antiepileptic and antimanic pharmacotherapy, it would seem eminently reasonable to resume the divalproex and oxcarbazepine he'd previously been taking. I agree with your decision not to resume the 3,000mg/day divalproex ER and 1,200 mg/day oxcarbazepine doses right away, but would suggest titrating as aggressively as tolerated. Note that divalproex ER is not equally bioavailable as IR divalproex. If it's necessary to crush tablets or use any dosage form other than ER, total dose may need to be 20-25% lower than with the ER form. With divalproex, the target antimanic range of blood level is 85-125 g/mL (higher than the typical therapeutic range for seizure control of 50-100 g/mL) and dose should be titrated based on blood level. For oxcarbazepine there is fairly scant published data about therapeutic blood level for priscila, but for carbamazepine it's fairly clear that the target range is the same as for seizure control, so oxcarbazepine dose should be titrated to usual antiepileptic blood level. Pt was on fairly high-dose (4 mg/day) clonazepam until some unknown time prior to admission, and it's possible that some of the waxing and waning cognition we're seeing could represent a degree of benzodiazepine withdrawal. It's also obviously antiepileptic and wouldn't require titration via blood level, so I recommend resuming 2 mg BID. If pt won't accept oral medication, clonazepam is essentially equipotent with lorazepam, though doses of the latter would need to be divided due to shorter half-life (e.g., 1 mg QID). If pt requires parenteral antipsychotic medication due to potentially dangerous behavior appearing to arise from psychosis, haloperidol would appear to be the safest option (administeredwithoutdiphenhydramine due to the reported intolerance). This could be given as haloperidol 5 mg IM and lorazepam 2 mg IM q8 hr PRN psychosis. An administrative decision has previously been made that pt is not a candidate for admission to the psychiatric unit at [facility]. He certainly will require psychiatric hospitalization. A bed search is underway, but if he is still here on Sunday he will need a commitment hearing if he is to remain in the hospital involuntarily any longer. With respect to his involuntary status, it is my opinion that at present Mr. Becker does not have the capacity to make rational and informed decisions about healthcare so, even if he were to agree to remain in the hospital, we would not be able to use such agreement as informed consent and will continue to need to rely on the legal mechanisms for involuntary admission. Suicide Risk Level Suicide Risk Level: Low (q15 min observation checks) (any risk is due to disorganized behavior rather than suicidality as he consistently denies SI, remains on 1-on- due to being on medical floor and on 303 commitment) Risk Factors Assessment Male: Yes : Yes Do You Have Access To A Gun?: No Health Problems: Yes Mental Health Diagnoses: Yes Previous Psychiatric Hospitalization: Yes Protective Factors Assessment Responsible for Young Children: No Employed: No Stable Relationships: No Interval History Identifying Information ROGER BECKER is a 47-year-old male with a history of schizoaffective disorder, admitted on 09/14/2022 for seizures. Consult is by the hospitalist service for psychosis. Chief Complaint "That's what I do when I'm scared". Review of Systems Notes poor sleep, eating Subjective Subjective Patient was seen & assessed and interval progress reviewed. Behavioral code last night after he started biting at his IV and ultimately pulled out the line requiring IM haldol and restraints. Shortly after was very tachycardia and code purple called and he was transferred to telemetry. Today back to being medically stable. Today having a lot of loosened associations, tells me he bite his IV "because that's what I do when I'm scared" and "they had taken too much of my blood already on Sunday and Sunday". Tells me "I gave too much, deduced, deducted, [employer] information". Tells me further that "my teammates came in and stung me". Agrees to higher dose of Depakote at bedtime tonight and requests additional prn and offered ativan to help him sleep. Physical Exam Psychiatric Orientation: alert and oriented to place Apperance: + disheveled Eye Contact: + poor eye contact Motor Behavior: + psychomotor agitation Speech: + pressured speech; + abnormal rate/rhythm/volume of speech (rapid) Affect: + labile affect Mood: + dysphoric mood Thought Process: + looseness of associations Thought Content: + paranoid and + delusions Suicidal Thoughts: denies suicidal thoughts Homicidal Thoughts: denies homicidal thoughts Hallucinations: + auditory hallucinations (seems to be responding to possible internal stimuli) Insight: + severely impaired insight Judgment: + limited judgement Vital Signs (Past 24 Hours) Last Vital Signs Temp 37.3 C 09/25/22 12:59 Pulse 82 09/25/22 12:59 Resp 18 09/25/22 12:59 BP 132/65 09/25/22 12:59 Pulse Ox 100 09/25/22 12:59 O2 Del Method Room Air 09/25/22 12:59 O2 Flow Rate 2 09/15/22 21:48 FiO2 30 09/14/22 22:35 Results & Data ([facility]) Laboratory Results Laboratory Results - last 24 hr 09/25/22 09/25/22 09/25/22 02:08 02:08 02:08 WBC RBC Hgb Hct MCV MCH MCHC RDW Std Deviation RDW Coeff of Levy Plt Count MPV Immature Gran % (Auto) Neut % (Auto) Lymph % (Auto) Ashley % (Auto) Eos % (Auto) Baso % (Auto) Neut # (Auto) Lymph # (Auto) Ashley # (Auto) Eos # (Auto) Baso # (Auto) Immature Gran # (Auto) APTT 24.2 PTT Ratio 0.9 ABG pH 7.47 H ABG pCO2 34 L ABG pO2 111 H ABG HCO3 25 H ABG O2 Saturation 99.2 H ABG Base Excess 1.5 Kelechi Test Pos Oxygen Given 2L Sodium 136 Potassium 3.9 Chloride 105 Carbon Dioxide 22 Anion Gap 9 BUN 13 Creatinine 0.72 Est Cr Clr Drug Dosing 119.9 Est GFR ( Amer) 129.7 Est GFR (Non-Af Amer) 111.9 BUN/Creatinine Ratio 18.1 Glucose 105 H Calcium 9.3 Magnesium 2.1 Total Bilirubin 0.3 AST 25 ALT 55 H Alkaline Phosphatase 61 Total Protein 6.6 Albumin 3.9 Globulin 2.7 Albumin/Globulin Ratio 1.4 Valproic Acid 09/25/22 09/25/22 02:08 02:08 WBC 7.11 RBC 3.97 L Hgb 12.5 L Hct 35.7 L MCV 89.9 MCH 31.5 MCHC 35.0 RDW Std Deviation 41.5 RDW Coeff of Levy 12.7 Plt Count 388 MPV 8.7 L Immature Gran % (Auto) 0.3 Neut % (Auto) 55.1 Lymph % (Auto) 31.6 Ashley % (Auto) 12.5 Eos % (Auto) 0.1 Baso % (Auto) 0.4 Neut # (Auto) 3.91 Lymph # (Auto) 2.25 Ashley # (Auto) 0.89 H Eos # (Auto) 0.01 Baso # (Auto) 0.03 Immature Gran # (Auto) 0.02 APTT PTT Ratio ABG pH ABG pCO2 ABG pO2 ABG HCO3 ABG O2 Saturation ABG Base Excess Kelechi Test Oxygen Given Sodium Potassium Chloride Carbon Dioxide Anion Gap BUN Creatinine Est Cr Clr Drug Dosing Est GFR ( Amer) Est GFR (Non-Af Amer) BUN/Creatinine Ratio Glucose Calcium Magnesium Total Bilirubin AST ALT Alkaline Phosphatase Total Protein Albumin Globulin Albumin/Globulin Ratio Valproic Acid 49 L Current Inpatient Medications Current Inpatient Medications: Current Inpatient Medications Acetaminophen (Acetaminophen 500 Mg Tab) 500 mg PO Q6H PRN PRN Reason: pain/fever Stop: 10/15/22 19:55 Last Admin: 09/24/22 13:51 Dose: 500 mg Benztropine Mesylate (Benztropine Mesylate 1 Mg Tab) 1 mg PO BID PRN PRN Reason: muscle stiffness Stop: 10/24/22 20:59 Clonazepam (Clonazepam 1 Mg Tab) 1 mg PO BID [facility] Stop: 10/24/22 20:59 Last Admin: 09/25/22 08:11 Dose: 1 mg Divalproex Sodium (Divalproex Extended Release 500 Mg Tab) 500 mg PO BID [facility] Stop: 10/23/22 20:59 Last Admin: 09/25/22 08:11 Dose: 500 mg Enoxaparin Sodium (Enoxaparin Inj 30 Mg/0.3 Ml Syr) 30 mg SQ HS [facility] Stop: 10/25/22 20:59 Haloperidol (Haloperidol 5 Mg Tab) 5 mg PO TID PRN PRN Reason: Agitation/psychosis Stop: 10/15/22 01:55 Last Admin: 09/24/22 12:16 Dose: 5 mg Lactated Ringer's (Lr) 1,000 mls @ 50 mls/hr IV .Q20H ONE Stop: 09/25/22 22:58 Last Admin: 09/25/22 03:30 Dose: 50 mls/hr Ibuprofen (Ibuprofen 200 Mg Tab) 400 mg PO TID PRN PRN Reason: pain, headache Stop: 10/16/22 11:47 Last Admin: 09/21/22 02:45 Dose: 400 mg Lorazepam (Lorazepam 1 Mg Tab) 1 mg PO Q4H PRN PRN Reason: Anxiety Stop: 10/22/22 11:45 Last Admin: 09/25/22 13:37 Dose: 1 mg Lorazepam (Lorazepam 2 Mg/1 Ml Vial) 1 mg IV Q4H PRN PRN Reason: Anxiety/Agitation Stop: 10/24/22 19:47 Last Admin: 09/25/22 03:06 Dose: 1 mg Ondansetron HCl (Ondansetron Inj 2 Mg/Ml 2 Ml Vial) 4 mg IV Q6H PRN PRN Reason: Nausea And Vomiting Stop: 10/16/22 12:04 Last Admin: 09/21/22 09:00 Dose: 4 mg Oxcarbazepine (Oxcarbazepine 150 Mg Tablet) 750 mg PO BID [facility] Stop: 10/14/22 23:44 Last Admin: 09/25/22 08:11 Dose: 750 mg Tamsulosin HCl (Tamsulosin Hcl 0.4 Mg Cap) 0.4 mg PO HS [facility] Stop: 10/20/22 11:18 Last Admin: 09/24/22 19:59 Dose: 0.4 mg Mental Health & Subst Abuse Tx Therapist Name of Therapist: Mat Ch @ [facility] Clear (?) Professor Of French Name of Professor Of French: Joann santiago [facility] Post Discharge Appointments Primary Care Physician Name Of Family Doctor/PCP: Lico De Jesus
--- NOTE | 2022-09-25 14:43 | Hospitalist Progress Note ---
Date of Service September 25, 2022 Assessment & Plan (1) Seizure: Plan: No more seizures (2) Schizoaffective disorder: Plan: Will need inpatient psychiatric care (3) Hypokalemia: (4) Hypophosphatemia: Plan Schizoaffective disorder/personality disorder/mood disorder, suboptimal following recent confinement of [facility] Appreciate psychiatry input and recommendation-on Depakote and oxcarbazepine for mood stabilization. Per psychiatry, 303 hearing was had on 09/18 for involuntary admission which was granted. Patient is still requiring one-to-one sitter and not yet cleared medically Restraints removed this morning, close monitor with 1:1 Medically stable-Will need inpatient psychiatric care Awaiting placement-not been aggressive but requires one-to-one sitter Medically stable with ongoing psychiatric issues Psych medications have been adjusted today Has had episodes of palpitation, agitation/profuse checks and desaturation EKG and chest x-ray are unremarkable Labs are unremarkable this morning Clinically much better Medications have been updated by psych as follows: * Requires 1-on-1 due to 303 commitment, cannot leave AMA * Increase to Depakote ER 500mg qAM and Depakote ER 1000mg HS * Continue Klonopin to 1mg BID * Continue Oxcarbazepine 750mg BID * Haldol 5mg TID prn po for psychosis/agitation Recurrent seizures status post intubation for airway protection- Possibly from high-dose Zyprexa administration Patient self extubated 09/14/22 and has been stable on NC, now saturating well in room air Seen by neurology-recommends noted. Currently on Depakote and oxcarbazepine, also for his psychiatric issues EEG: Potentially abnormal awake/drowsy EEG with evidence of left parietal slowing and sharps. Would correlate with brain MRI. No evidence of persistent seizure activity. MRI brain 1. No acute infarct or intracranial hemorrhage. 2. The temporal lobes are symmetric. 3. A few punctate foci of T2 hyperintensity seen within the periventricular and subcortical white matter of the supratentorial brain. These are nonspecific but greater than expected for age. Therefore, this could represent early microvascular ischemic change, migraines, Lyme's disease, or less likely a demyelinating disease or vasculitis. No more seizures The patient remains stable on current medications Lyme serology negative No more seizures Electrolyte imbalance Hypokalemia-resolved Hypophosphatemia-resolved We will check electrolytes again-Remains normal Transient atrial flutter secondary to illness- Patient NSR post Cardizem administration at the ER. Echo reviewed-sinus rhythm in 80s, was on a mechanical ventilation during study, mild concentric LVH, apex was not well visualized otherwise LV wall motion is normal, LV was hyperdynamic and the EF was more than 70%. There is no significant tricuspid regurgitation and right ventricle is normal in size and function. Currently in sinus rhythm Elevated CK- only mildly elevated and already downtrending. Urinary retention pt continues to pull lang out required straight cath today trial flomax at HS, if continues consider urology consult Flomax has been working-minimal urinary symptoms resolved spontaneously Benadryl and Klonopin have been discontinued which will help urinary symptoms a bit DVT prophylaxis. Lovenox subcu PCP: Poncho Mckeon MD Disposition: Needs admission to inpatient psych facility- bed search underway. Currently, Patient does not have decision making capacity to leave AMA Remains medically stable to be transferred to a psychiatric facility Ongoing inpatient psychiatric bed search Admission and Anticipated Discharge Date Admission Date: September 14, 2022 Subjective Pt seem and examined in room 356-2. Follow up Schizoaffective d/o, seizure. Sitting at bedside eating breakfast. Nurse states having a much better morning. He pulled lang out, retaining 500cc today so had to be straight cathed 09/21/2022 The patient was seen and examined in medical floor He has been medically stable Still requiring one-to-one sitter-not being aggressive and has been listening 09/22/2022 The patient was seen and examined in medical floor He remained medically stable Still requiring one-to-one sitter for his psychiatric issues 09/23/2022 The patient was seen and examined in medical floor He has been stable and has not been requiring any restraint Still needs one-to-one sitter He has been sleeping throughout the morning 09/24/2022 The patient was seen and examined in medical floor He has been stable and still requiring one-to-one sitter Has a problem with urination last night but has been voiding normally His clonazepam and Benadryl have been discontinued by the psychiatrist 09/25/2022 The patient was seen and examined in telemetry unit The patient has had episode of tachycardia with palpitation and hypoxemia associated with agitation and checking and he was transferred to telemetry unit Remains stable during my examination and denies any significant symptoms Still has checks when conversing Review of Systems Review of Systems: All systems reviewed and are unremarkable except as noted below Neurologic: Alert and awake. Has shakes involving the extremities with conversation Physical Exam Physical Exam: Lying in bed comfortably Constitutional: average body habitus; not ill appearing Eyes: PERRL, conjunctivae normal, anicteric sclerae ENMT: external ear and nose normal, oropharynx normal Neck: trachea midline, no thyromegaly Respiratory: no respiratory distress Auscultation: lungs clear to auscultation bilaterally Cardiovascular: Rate/Rhythm: regular rate and regular rhythm; not tachycardic Extremities: no edema Gastrointestinal (Abdomen): Inspection/Auscultation: normal bowel sounds; abdomen not distended Percussion/Palpation: abdomen soft; abdomen nontender Musculoskeletal: No acute arthritis in any joint Lymphatic: no cervical or axillary lymphadenopathy Results & Data Results & Data Vital Signs (Past 12 Hours) Vital Signs Temp Pulse Pulse Resp BP Pulse Ox O2 Del Method 09/25/22 12:59 37.3 C 82 18 132/65 100 Room Air 09/25/22 08:00 36.4 C 71 18 134/80 100 Room Air 09/25/22 07:20 69 Laboratory Results Short CBC 09/25/22 Range/Units 02:08 WBC 7.11 (4.8-10.8) K/ul Hgb 12.5 L (14.0-18.0) g/dl Hct 35.7 L (42.0-52.0) % Plt Count 388 (130-400) K/uL BMP 09/25/22 02:08 Sodium 136 Potassium 3.9 Chloride 105 Carbon Dioxide 22 BUN 13 Creatinine 0.72 Glucose 105 H Calcium 9.3 Liver Function 09/25/22 Range/Units 02:08 Total Bilirubin 0.3 (0.2-1.0) mg/dl AST 25 (13-39) U/L ALT 55 H (7-52) U/L Alkaline Phosphatase 61 (34-104) U/L Albumin 3.9 (3.4-5.0) gm/dl Medications Administered Current Inpatient Medications Acetaminophen (Acetaminophen 500 Mg Tab) 500 mg PO Q6H PRN PRN Reason: pain/fever Stop: 10/15/22 19:55 Last Admin: 09/24/22 13:51 Dose: 500 mg Benztropine Mesylate (Benztropine Mesylate 1 Mg Tab) 1 mg PO BID PRN PRN Reason: muscle stiffness Stop: 10/24/22 20:59 Clonazepam (Clonazepam 1 Mg Tab) 1 mg PO BID [facility] Stop: 10/24/22 20:59 Last Admin: 09/25/22 08:11 Dose: 1 mg Divalproex Sodium (Divalproex Extended Release 500 Mg Tab) 500 mg PO QAM [facility] Stop: 10/26/22 08:59 Divalproex Sodium (Divalproex Extended Release 500 Mg Tab) 1,000 mg PO HS [facility] Stop: 10/25/22 20:59 Enoxaparin Sodium (Enoxaparin Inj 30 Mg/0.3 Ml Syr) 30 mg SQ HS [facility] Stop: 10/25/22 20:59 Haloperidol (Haloperidol 5 Mg Tab) 5 mg PO TID PRN PRN Reason: Agitation/psychosis Stop: 10/15/22 01:55 Last Admin: 09/24/22 12:16 Dose: 5 mg Lactated Ringer's (Lr) 1,000 mls @ 50 mls/hr IV .Q20H ONE Stop: 09/25/22 22:58 Last Admin: 09/25/22 03:30 Dose: 50 mls/hr Ibuprofen (Ibuprofen 200 Mg Tab) 400 mg PO TID PRN PRN Reason: pain, headache Stop: 10/16/22 11:47 Last Admin: 09/21/22 02:45 Dose: 400 mg Lorazepam (Lorazepam 1 Mg Tab) 1 mg PO Q4H PRN PRN Reason: Anxiety Stop: 10/22/22 11:45 Last Admin: 09/25/22 13:37 Dose: 1 mg Lorazepam (Lorazepam 2 Mg/1 Ml Vial) 1 mg IV Q4H PRN PRN Reason: Anxiety/Agitation Stop: 10/24/22 19:47 Last Admin: 09/25/22 03:06 Dose: 1 mg Ondansetron HCl (Ondansetron Inj 2 Mg/Ml 2 Ml Vial) 4 mg IV Q6H PRN PRN Reason: Nausea And Vomiting Stop: 10/16/22 12:04 Last Admin: 09/21/22 09:00 Dose: 4 mg Oxcarbazepine (Oxcarbazepine 150 Mg Tablet) 750 mg PO BID [facility] Stop: 10/14/22 23:44 Last Admin: 09/25/22 08:11 Dose: 750 mg Tamsulosin HCl (Tamsulosin Hcl 0.4 Mg Cap) 0.4 mg PO [facility] Stop: 10/20/22 11:18 Last Admin: 09/24/22 19:59 Dose: 0.4 mg
[2022-09-25] MEDS: ENOXAPARIN INJ 30 MG/0.3 ML SYR SQ SCH (20:47)
[2022-09-25] MEDS: TAMSULOSIN HCL 0.4 MG CAP PO SCH (20:50)
[2022-09-26] MEDS: clonazePAM 1 MG TAB PO SCH ×2 (08:22→20:19)
[2022-09-26] MEDS: OXcarbazepine 150 MG TABLET PO SCH ×2 (08:23→20:20)
[2022-09-26] MEDS: DIVALPROEX EXTENDED RELEASE 500 MG TAB PO SCH ×2 (08:23→20:20)
[2022-09-26] MEDS: LORazepam 1 MG TAB PO PRN ×3 (10:34→22:41)
[2022-09-26] MEDS: haloperidoL 5 MG TAB PO PRN ×2 (11:15→19:30)
[2022-09-26 11:47] LABS: Appearance Urine Clear (Clear); Bacteria Urine Automated Negative (Negative); Bilirubin Urine Negative (Negative); Blood Urine 3+ (Negative); Cast Urine Automated 0 /lpf (0-5); Color Urine Yellow; Glucose Urine UA Negative (Negative); Ketones Urine Negative (Negative); Leukocyte Esterase Urine Negative (Negative); Nitrite Urine Negative (Negative); Protein Urine Negative (Negative); RBC Urine Automated >30 /hpf (0-4); Specific Gravity Urine 1.011 (1.000-1.030); Urobilinogen Urine Negative (Negative); pH Urine 7.5 (4.5-7.5)
--- NOTE | 2022-09-26 17:08 | Hospitalist Progress Note ---
Date of Service September 26, 2022 Assessment & Plan (1) Seizure: Plan: No more seizures (2) Schizoaffective disorder: Plan: Will need inpatient psychiatric care (3) Hypokalemia: (4) Hypophosphatemia: Plan Schizoaffective disorder/personality disorder/mood disorder, suboptimal following recent confinement of [facility] Appreciate psychiatry input and recommendation-on Depakote and oxcarbazepine for mood stabilization. Per psychiatry, 303 hearing was had on 09/18 for involuntary admission which was granted. Patient is still requiring one-to-one sitter and not yet cleared medically Restraints removed this morning, close monitor with 1:1 Medically stable-Will need inpatient psychiatric care Awaiting placement-not been aggressive but requires one-to-one sitter Medically stable with ongoing psychiatric issues Psych medications have been adjusted today Still has shakiness but otherwise seems to medically stable To go to inpatient psychiatric facility Has had episodes of palpitation, agitation/profuse checks and desaturation EKG and chest x-ray are unremarkable Labs are unremarkable this morning Clinically much better Medications have been updated by psych as follows: * Requires 1-on-1 due to 303 commitment, cannot leave AMA * Increase to Depakote ER 500mg qAM and Depakote ER 1000mg HS * Continue Klonopin to 1mg BID * Continue Oxcarbazepine 750mg BID * Haldol 5mg TID prn po for psychosis/agitation No more palpitation and/or tachycardia Recurrent seizures status post intubation for airway protection- Possibly from high-dose Zyprexa administration Patient self extubated 09/14/22 and has been stable on NC, now saturating well in room air Seen by neurology-recommends noted. Currently on Depakote and oxcarbazepine, also for his psychiatric issues EEG: Potentially abnormal awake/drowsy EEG with evidence of left parietal slowing and sharps. Would correlate with brain MRI. No evidence of persistent seizure activity. MRI brain 1. No acute infarct or intracranial hemorrhage. 2. The temporal lobes are symmetric. 3. A few punctate foci of T2 hyperintensity seen within the periventricular and subcortical white matter of the supratentorial brain. These are nonspecific but greater than expected for age. Therefore, this could represent early microvascular ischemic change, migraines, Lyme's disease, or less likely a demyelinating disease or vasculitis. No more seizures The patient remains stable on current medications Lyme serology negative No more seizures Electrolyte imbalance Hypokalemia-resolved Hypophosphatemia-resolved We will check electrolytes again-Remains normal Transient atrial flutter secondary to illness- Patient NSR post Cardizem administration at the ER. Echo reviewed-sinus rhythm in 80s, was on a mechanical ventilation during study, mild concentric LVH, apex was not well visualized otherwise LV wall motion is normal, LV was hyperdynamic and the EF was more than 70%. There is no significant tricuspid regurgitation and right ventricle is normal in size and function. Currently in sinus rhythm Rate is normal and in sinus rhythm Elevated CK- only mildly elevated and already downtrending. Urinary retention pt continues to pull lang out required straight cath today trial flomax at HS, if continues consider urology consult Flomax has been working-minimal urinary symptoms resolved spontaneously Benadryl and Klonopin have been discontinued which will help urinary symptoms a bit DVT prophylaxis. Lovenox subcu PCP: Poncho Mckeon MD Disposition: Needs admission to inpatient psych facility- bed search underway. Currently, Patient does not have decision making capacity to leave AMA Remains medically stable to be transferred to a psychiatric facility Ongoing inpatient psychiatric bed search Admission and Anticipated Discharge Date Admission Date: September 14, 2022 Subjective Pt seem and examined in room 356-2. Follow up Schizoaffective d/o, seizure. Sitting at bedside eating breakfast. Nurse states having a much better morning. He pulled lang out, retaining 500cc today so had to be straight cathed 09/21/2022 The patient was seen and examined in medical floor He has been medically stable Still requiring one-to-one sitter-not being aggressive and has been listening 09/22/2022 The patient was seen and examined in medical floor He remained medically stable Still requiring one-to-one sitter for his psychiatric issues 09/23/2022 The patient was seen and examined in medical floor He has been stable and has not been requiring any restraint Still needs one-to-one sitter He has been sleeping throughout the morning 09/24/2022 The patient was seen and examined in medical floor He has been stable and still requiring one-to-one sitter Has a problem with urination last night but has been voiding normally His clonazepam and Benadryl have been discontinued by the psychiatrist 09/25/2022 The patient was seen and examined in telemetry unit The patient has had episode of tachycardia with palpitation and hypoxemia associated with agitation and checking and he was transferred to telemetry unit Remains stable during my examination and denies any significant symptoms Still has checks when conversing 09/26/2022 The patient was seen and examined in telemetry unit He has been very anxious today and has been having generalized shaking specially when he is trying to communicate Talking reasonably but sometimes without any sense Review of Systems Review of Systems: All systems reviewed and are unremarkable except as noted below Neurologic: Alert and awake. Has shakes involving the extremities with conversation Physical Exam Physical Exam: Lying in bed comfortably Constitutional: average body habitus; not ill appearing Eyes: PERRL, conjunctivae normal, anicteric sclerae ENMT: external ear and nose normal, oropharynx normal Neck: trachea midline, no thyromegaly Respiratory: no respiratory distress Auscultation: lungs clear to auscultation bilaterally Cardiovascular: Rate/Rhythm: regular rate and regular rhythm; not tachycardic Extremities: no edema Gastrointestinal (Abdomen): Inspection/Auscultation: normal bowel sounds; abdomen not distended Percussion/Palpation: abdomen soft; abdomen nontender Neurologic: .Alert and awake. Tremors all over. Tremors are stopped or better when he is closing eyes and trying to lie still Lymphatic: no cervical or axillary lymphadenopathy Results & Data Results & Data Vital Signs (Past 12 Hours) Vital Signs Temp Pulse Pulse Resp BP BP Pulse Ox 09/26/22 16:06 37.0 C 91 H 16 120/83 92 09/26/22 11:30 36.8 C 85 16 116/80 91 09/26/22 07:00 36.9 C 71 18 136/80 97 O2 Del Method 09/26/22 16:06 Room Air 09/26/22 11:30 Room Air 09/26/22 07:00 Room Air Laboratory Results Urine 09/26/22 Range/Units 11:23 Urine Color Yellow Urine Appearance Clear (Clear) Urine pH 7.5 (4.5-7.5) Ur Specific Sneads 1.011 (1.000-1.030) Urine Protein Negative (Negative) Urine Glucose (UA) Negative (Negative) Medications Administered Current Inpatient Medications Acetaminophen (Acetaminophen 500 Mg Tab) 500 mg PO Q6H PRN PRN Reason: pain/fever Stop: 10/15/22 19:55 Last Admin: 09/24/22 13:51 Dose: 500 mg Benztropine Mesylate (Benztropine Mesylate 1 Mg Tab) 1 mg PO BID PRN PRN Reason: muscle stiffness Stop: 10/24/22 20:59 Clonazepam (Clonazepam 1 Mg Tab) 1 mg PO BID [facility] Stop: 10/24/22 20:59 Last Admin: 09/26/22 08:22 Dose: 1 mg Divalproex Sodium (Divalproex Extended Release 500 Mg Tab) 500 mg PO QAM [facility] Stop: 10/26/22 08:59 Last Admin: 09/26/22 08:23 Dose: 500 mg Divalproex Sodium (Divalproex Extended Release 500 Mg Tab) 1,000 mg PO HS [facility] Stop: 10/25/22 20:59 Last Admin: 09/25/22 20:45 Dose: 1,000 mg Enoxaparin Sodium (Enoxaparin Inj 30 Mg/0.3 Ml Syr) 30 mg SQ HS [facility] Stop: 10/25/22 20:59 Last Admin: 09/25/22 20:47 Dose: 30 mg Haloperidol (Haloperidol 5 Mg Tab) 5 mg PO TID PRN PRN Reason: Agitation/psychosis Stop: 10/15/22 01:55 Last Admin: 09/26/22 11:15 Dose: 5 mg Ibuprofen (Ibuprofen 200 Mg Tab) 400 mg PO TID PRN PRN Reason: pain, headache Stop: 10/16/22 11:47 Last Admin: 09/21/22 02:45 Dose: 400 mg Lorazepam (Lorazepam 1 Mg Tab) 1 mg PO Q4H PRN PRN Reason: Anxiety Stop: 10/22/22 11:45 Last Admin: 09/26/22 10:34 Dose: 1 mg Lorazepam (Lorazepam 2 Mg/1 Ml Vial) 1 mg IV Q4H PRN PRN Reason: Anxiety/Agitation Stop: 10/24/22 19:47 Last Admin: 09/25/22 03:06 Dose: 1 mg Ondansetron HCl (Ondansetron Inj 2 Mg/Ml 2 Ml Vial) 4 mg IV Q6H PRN PRN Reason: Nausea And Vomiting Stop: 10/16/22 12:04 Last Admin: 09/21/22 09:00 Dose: 4 mg Oxcarbazepine (Oxcarbazepine 150 Mg Tablet) 750 mg PO BID [facility] Stop: 10/14/22 23:44 Last Admin: 09/26/22 08:23 Dose: 750 mg Tamsulosin HCl (Tamsulosin Hcl 0.4 Mg Cap) 0.4 mg PO [facility] Stop: 10/20/22 11:18 Last Admin: 09/25/22 20:50 Dose: 0.4 mg
--- NOTE | 2022-09-26 17:26 | Psychiatric Progress Note ---
Date of Service September 26, 2022 Impression / Recommendations Impression 47 y/o man with schizoaffective disorder, bipolar type who's been off his medication and who recently had seizures in the ED in the context of having been off his high-dose anticonvulsants and benzodiazepine and having been administered olanzapine. Has been improving since restarting his medications with no further seizures and remains medically stable. On 303 commitment awaiting inpatient psychiatric placement. 09/26/2022:Ongoing acute priscila and psychosis with clanging, loosened associations and periods of acute agitation intermittently which seem to be related to delusions. Improved sleep last night with higher dose of Depakote. The patient remains hospitalized on a completed 303 involuntary commitment. This patient must remain on safety precautions with a 1-on-1 and is unable to leave the hospital AMA. 303 expires on 10/08/2022. (1) Schizoaffective disorder, bipolar type: Plan 09/26/2022: * Ongoing bed search. * Requires 1-on-1 due to 303 commitment, cannot leave AMA * Depakote ER 500mg qAM and 1000mg HS * Klonopin to 1mg BID * Oxcarbazepine 750mg BID * Haldol 5mg TID prn po for psychosis/agitation 09/25/2022: * Ongoing bed search. * Requires 1-on-1 due to 303 commitment, cannot leave AMA * Increase to Depakote ER 500mg qAM and Depakote ER 1000mg HS * Continue Klonopin to 1mg BID * Continue Oxcarbazepine 750mg BID * Haldol 5mg TID prn po for psychosis/agitation 09/24/2022: * Ongoing bed search. * Requires 1-on-1 due to 303 commitment, cannot leave AMA * Continue with Depakote ER 500mg BID, likely increase again in 2-3 days * Increase Klonopin to 1mg BID * Continue Oxcarbazepine 750mg BID * Haldol 5mg TID prn po for psychosis/agitation 09/23/2022: * Ongoing bed search. * Requires 1-on-1 due to 303 commitment, cannot leave AMA * Increase Depakote ER to 500mg BID * Continue Klonopin 1mg daily, Oxcarbazepine 750mg BID * Haldol 5mg BID prn po for psychosis/agitation 09/22/2022: Requires psychiatric admission. Bed search continues. Please do consider titrating divalproex. It would be appropriate to check trough levels of valproate and oxcarbazepine to assess whether they're in the therapeutic range. 09/21/2022: Requires psychiatric admission. Bed search is underway. 09/20/2022: Based on pt's presentation today, I can only recommend staying the current course in terms of psychiatric treatment. He will still require psychiatric admission once medically stable. 09/19/2022: By history, pt has required much higher divalproex ER dose (3,000 mg/day), along with oxcarbazepine, to suppress priscila and seizures. If he can't tolerate whole divalproex ER tablets, divalproex or valproic acid could be used with a target dose of 2,000 mg/day. In either case, dose should be titrated to a target blood level in the range of 85-125 g/mL. 09/18/2022: Pt is now subject to a section 303 involuntary commitment. He must remain in the hospital on 1:1 observation until he's determined to be medically stable. At that time, a psychiatric bed search will need to be undertaken. Consider more aggressive titration of divalproex. 09/17/2022: Continue current medication regimen. Pt will require a hearing to enable continuing hospitalization (because he certainly can't be discharged to home). 09/16/2022: Since pt clearly needs both antiepileptic and antimanic pharmacotherapy, it would seem eminently reasonable to resume the divalproex and oxcarbazepine he'd previously been taking. I agree with your decision not to resume the 3,000mg/day divalproex ER and 1,200 mg/day oxcarbazepine doses right away, but would suggest titrating as aggressively as tolerated. Note that divalproex ER is not equally bioavailable as IR divalproex. If it's necessary to crush tablets or use any dosage form other than ER, total dose may need to be 20-25% lower than with the ER form. With divalproex, the target antimanic range of blood level is 85-125 g/mL (higher than the typical therapeutic range for seizure control of 50-100 g/mL) and dose should be titrated based on blood level. For oxcarbazepine there is fairly scant published data about therapeutic blood level for priscila, but for carbamazepine it's fairly clear that the target range is the same as for seizure control, so oxcarbazepine dose should be titrated to usual antiepileptic blood level. Pt was on fairly high-dose (4 mg/day) clonazepam until some unknown time prior to admission, and it's possible that some of the waxing and waning cognition we're seeing could represent a degree of benzodiazepine withdrawal. It's also obviously antiepileptic and wouldn't require titration via blood level, so I recommend resuming 2 mg BID. If pt won't accept oral medication, clonazepam is essentially equipotent with lorazepam, though doses of the latter would need to be divided due to shorter half-life (e.g., 1 mg QID). If pt requires parenteral antipsychotic medication due to potentially dangerous behavior appearing to arise from psychosis, haloperidol would appear to be the safest option (administeredwithoutdiphenhydramine due to the reported intolerance). This could be given as haloperidol 5 mg IM and lorazepam 2 mg IM q8 hr PRN psychosis. An administrative decision has previously been made that pt is not a candidate for admission to the psychiatric unit at [facility]. He certainly will require psychiatric hospitalization. A bed search is underway, but if he is still here on Sunday he will need a commitment hearing if he is to remain in the hospital involuntarily any longer. With respect to his involuntary status, it is my opinion that at present Mr. Becker does not have the capacity to make rational and informed decisions about healthcare so, even if he were to agree to remain in the hospital, we would not be able to use such agreement as informed consent and will continue to need to rely on the legal mechanisms for involuntary admission. Suicide Risk Level Suicide Risk Level: Low (q15 min observation checks) (any risk is due to disorganized behavior rather than suicidality as he consistently denies SI, remains on 1-on-1 due to being on medical floor and on 303 commitment) Risk Factors Assessment Male: Yes : Yes Do You Have Access To A Gun?: No Health Problems: Yes Mental Health Diagnoses: Yes Previous Psychiatric Hospitalization: Yes Protective Factors Assessment Responsible for Young Children: No Employed: No Stable Relationships: No Interval History Identifying Information MAX BRAYAN is a 47-year-old male with a history of schizoaffective disorder, admitted on 09/14/2022 for seizures. Consult is by the hospitalist service for psychosis. Chief Complaint "He had an invisible friend named Faustino". Subjective Subjective Patient was seen & assessed and interval progress reviewed. No behavioral events overnight. Slept more. Taking all po medications. Tells me he feels "calmer" today but also noted to be moving his arms and legs back and forth in bed and when asked states this is due to "overstimulation from the TV and visitors". Denies any medication side effects. Asking for prn haldol and ativan at times and finds these helpful. Physical Exam Psychiatric Orientation: alert and oriented to place Apperance: + disheveled Eye Contact: + fair eye contact Motor Behavior: + psychomotor agitation Speech: + pressured speech; + abnormal rate/rhythm/volume of speech (rapid) Affect: + labile affect Mood: + dysphoric mood Thought Process: + looseness of associations Thought Content: + paranoid and + delusions Suicidal Thoughts: denies suicidal thoughts Homicidal Thoughts: denies homicidal thoughts Hallucinations: + auditory hallucinations (seems to be responding to possible internal stimuli) Insight: + severely impaired insight Judgment: + limited judgement Vital Signs (Past 24 Hours) Last Vital Signs Temp 37.0 C 09/26/22 16:06 Pulse 91 H 09/26/22 16:06 Resp 16 09/26/22 16:06 BP 120/83 09/26/22 16:06 Pulse Ox 92 09/26/22 16:06 O2 Del Method Room Air 09/26/22 16:06 O2 Flow Rate 2 09/15/22 21:48 FiO2 30 09/14/22 22:35 Results & Data ([facility]) Laboratory Results Laboratory Results - last 24 hr 09/26/22 11:23 Urine Color Yellow Urine Appearance Clear Urine pH 7.5 Ur Specific [place] 1.011 Urine Protein Negative Urine Glucose (UA) Negative Urine Ketones Negative Urine Blood 3+ H Urine Nitrite Negative Urine Bilirubin Negative Urine Urobilinogen Negative Ur Leukocyte Esterase Negative Urine WBC (Auto) 1-5 Urine RBC (Auto) >30 H U Hyaline Cast (Auto) 0 U Epithel Cells (Auto) 5-10 H Urine Bacteria (Auto) Negative Current Inpatient Medications Current Inpatient Medications: Current Inpatient Medications Acetaminophen (Acetaminophen 500 Mg Tab) 500 mg PO Q6H PRN PRN Reason: pain/fever Stop: 10/15/22 19:55 Last Admin: 09/24/22 13:51 Dose: 500 mg Benztropine Mesylate (Benztropine Mesylate 1 Mg Tab) 1 mg PO BID PRN PRN Reason: muscle stiffness Stop: 10/24/22 20:59 Clonazepam (Clonazepam 1 Mg Tab) 1 mg PO BID [facility] Stop: 10/24/22 20:59 Last Admin: 09/26/22 08:22 Dose: 1 mg Divalproex Sodium (Divalproex Extended Release 500 Mg Tab) 500 mg PO QAM [facility] Stop: 10/26/22 08:59 Last Admin: 09/26/22 08:23 Dose: 500 mg Divalproex Sodium (Divalproex Extended Release 500 Mg Tab) 1,000 mg PO HS [facility] Stop: 10/25/22 20:59 Last Admin: 09/25/22 20:45 Dose: 1,000 mg Enoxaparin Sodium (Enoxaparin Inj 30 Mg/0.3 Ml Syr) 30 mg SQ HS [facility] Stop: 10/25/22 20:59 Last Admin: 09/25/22 20:47 Dose: 30 mg Haloperidol (Haloperidol 5 Mg Tab) 5 mg PO TID PRN PRN Reason: Agitation/psychosis Stop: 10/15/22 01:55 Last Admin: 09/26/22 11:15 Dose: 5 mg Ibuprofen (Ibuprofen 200 Mg Tab) 400 mg PO TID PRN PRN Reason: pain, headache Stop: 10/16/22 11:47 Last Admin: 09/21/22 02:45 Dose: 400 mg Lorazepam (Lorazepam 1 Mg Tab) 1 mg PO Q4H PRN PRN Reason: Anxiety Stop: 10/22/22 11:45 Last Admin: 09/26/22 10:34 Dose: 1 mg Lorazepam (Lorazepam 2 Mg/1 Ml Vial) 1 mg IV Q4H PRN PRN Reason: Anxiety/Agitation Stop: 10/24/22 19:47 Last Admin: 09/25/22 03:06 Dose: 1 mg Ondansetron HCl (Ondansetron Inj 2 Mg/Ml 2 Ml Vial) 4 mg IV Q6H PRN PRN Reason: Nausea And Vomiting Stop: 10/16/22 12:04 Last Admin: 09/21/22 09:00 Dose: 4 mg Oxcarbazepine (Oxcarbazepine 150 Mg Tablet) 750 mg PO BID [facility] Stop: 10/14/22 23:44 Last Admin: 09/26/22 08:23 Dose: 750 mg Tamsulosin HCl (Tamsulosin Hcl 0.4 Mg Cap) 0.4 mg PO HS [facility] Stop: 10/20/22 11:18 Last Admin: 09/25/22 20:50 Dose: 0.4 mg Mental Health & Subst Abuse Tx Therapist Name of Therapist: Mat Ch @ [facility] Clear (?) Infection Prevention Practitioner Name of Infection Prevention Practitioner: Joann santiago [place] [facility] Post Discharge Appointments Primary Care Physician Name Of Family Doctor/PCP: Lico De Jesus
[2022-09-26] MEDS: LORazepam 2 MG/1 ML VIAL IV PRN (18:37)
[2022-09-26] MEDS: IBUPROFEN 200 MG TAB PO PRN (19:30)
[2022-09-26] MEDS: ENOXAPARIN INJ 30 MG/0.3 ML SYR SQ SCH (20:19)
[2022-09-26] MEDS: TAMSULOSIN HCL 0.4 MG CAP PO SCH (20:20)
[2022-09-27] MEDS: haloperidoL 5 MG TAB PO PRN ×3 (05:28→14:18)
[2022-09-27] MEDS: IBUPROFEN 200 MG TAB PO PRN (08:16)
[2022-09-27] MEDS: clonazePAM 1 MG TAB PO SCH ×2 (08:16→20:10)
[2022-09-27] MEDS: DIVALPROEX EXTENDED RELEASE 500 MG TAB PO SCH ×2 (08:17→20:06)
[2022-09-27] MEDS: OXcarbazepine 150 MG TABLET PO SCH ×2 (08:17→20:05)
--- NOTE | 2022-09-27 08:33 | Hospitalist Progress Note ---
Date of Service September 27, 2022 Assessment & Plan (1) Seizure: Plan: No more seizures (2) Schizoaffective disorder: Plan: Will need inpatient psychiatric care (3) Hypokalemia: (4) Hypophosphatemia: Plan Schizoaffective disorder/personality disorder/mood disorder, suboptimal following recent confinement of [facility] Appreciate psychiatry input and recommendation-on Depakote and oxcarbazepine for mood stabilization. Per psychiatry, 303 hearing was had on 09/18 for involuntary admission which was granted. Patient is still requiring one-to-one sitter Medically stable for discharge Awaiting inpatient psychiatric placement. Recurrent seizures status post intubation for airway protection- Possibly from high-dose Zyprexa administration Patient self extubated 09/14/22 and has been stable on NC, now saturating well in room air Currently on Depakote and oxcarbazepine, also for his psychiatric issues EEG: Potentially abnormal awake/drowsy EEG with evidence of left parietal slowing and sharps. Would correlate with brain MRI. No evidence of persistent seizure activity. MRI brain 1. No acute infarct or intracranial hemorrhage. 2. The temporal lobes are symmetric. 3. A few punctate foci of T2 hyperintensity seen within the periventricular and subcortical white matter of the supratentorial brain. These are nonspecific but greater than expected for age. Therefore, this could represent early microvascular ischemic change, migraines, Lyme's disease, or less likely a demyelinating disease or vasculitis. The patient remains stable on current medications Lyme serology negative No more seizures Electrolyte imbalance Hypokalemia-resolved Hypophosphatemia-resolved Transient atrial flutter secondary to illness- Patient NSR post Cardizem administration at the ER. Echo reviewed-sinus rhythm in 80s, was on a mechanical ventilation during study, mild concentric LVH, apex was not well visualized otherwise LV wall motion is normal, LV was hyperdynamic and the EF was more than 70%. There is no significant tricuspid regurgitation and right ventricle is normal in size and function. Currently in sinus rhythm Urinary retention Giles removed and urinating spontaneously cont flomax at night Benadryl and Klonopin have been discontinued which will help urinary symptoms DVT proph: Lovenox Full code Dispo-medically stable for inpatient psychiatric facility. Katelyn Snyder DO [facility] Hospitalist Admission and Anticipated Discharge Date Admission Date: September 14, 2022 Subjective 47 yo M with schizoaffective disorder, bipolar who has been off anticonvulsant medications He is currently awaiting inpatient psychiatric placement. He does not appear happy and is using profanity and not making much sense. He is piggybacking off words I use almost as if to make fun of them and then redirect the emotion into anger He is compliant with exam and questioning but appears angry with this He appears to be saying that others are making his decisions for him and that "all the briefcase sewer should be fired" among other things. It is a bit hard to follow. Denies pain 1:1 RN at bedside He has generalized tremulousness but reports this is normal. Review of Systems Review of Systems: All systems were reviewed and negative except as indicated on HPI above. Physical Exam Physical Exam: CONSTITUTIONAL: WNWD, vitals as above, generally appears emotionally upset and with generalized tremor. EYES: normal conjunctivae, no scleral icterus ENT: external ear and nose normal, MMM NECK: trachea midline RESPIRATORY: clear to auscultation bilaterally, no crackles, rales or wheezes, normal respiratory effort CARDIOVASCULAR: regular rate and rhythm, S1 and 2 heard without murmurs, gallops or rubs, no JVD, no peripheral edema CHEST: inspection of chest was normal GASTROINTESTINAL: soft, nontender, ND, no guarding. MUSCULOSKELETAL: strength 5/5 throughout, head is normocephalic and atraumatic, he caneasily maneuver around the bed SKIN: warm and dry NEUROLOGIC: CN 2-12 grossly intact, no sensory deficit, normal cognition, normal speech, no tremor PSYCHIATRIC: alert cooperative , agitated, appears oriented but this was not totally clear. Results & Data Results & Data Vital Signs (Past 12 Hours) Vital Signs Temp Pulse Pulse Resp BP BP Pulse Ox 09/27/22 07:20 36.4 C L 88 18 127/82 92 09/27/22 03:00 36.7 C 84 16 124/83 94 09/26/22 22:44 36.9 C 96 H 16 124/84 98 O2 Del Method 09/27/22 07:20 Room Air 09/27/22 03:00 Room Air 09/26/22 22:44 Room Air Laboratory Results Urine 09/26/22 Range/Units 11:23 Urine Color Yellow Urine Appearance Clear (Clear) Urine pH 7.5 (4.5-7.5) Ur Specific [place] 1.011 (1.000-1.030) Urine Protein Negative (Negative) Urine Glucose (UA) Negative (Negative) Medications Administered Current Inpatient Medications Acetaminophen (Acetaminophen 500 Mg Tab) 500 mg PO Q6H PRN PRN Reason: pain/fever Stop: 10/15/22 19:55 Last Admin: 09/24/22 13:51 Dose: 500 mg Benztropine Mesylate (Benztropine Mesylate 1 Mg Tab) 1 mg PO BID PRN PRN Reason: muscle stiffness Stop: 10/24/22 20:59 Clonazepam (Clonazepam 1 Mg Tab) 1 mg PO BID [facility] Stop: 10/24/22 20:59 Last Admin: 09/27/22 08:16 Dose: 1 mg Divalproex Sodium (Divalproex Extended Release 500 Mg Tab) 500 mg PO QAM [facility] Stop: 10/26/22 08:59 Last Admin: 09/27/22 08:17 Dose: 500 mg Divalproex Sodium (Divalproex Extended Release 500 Mg Tab) 1,000 mg PO HS [facility] Stop: 10/25/22 20:59 Last Admin: 09/26/22 20:20 Dose: 1,000 mg Enoxaparin Sodium (Enoxaparin Inj 30 Mg/0.3 Ml Syr) 30 mg SQ HS [facility] Stop: 10/25/22 20:59 Last Admin: 09/26/22 20:19 Dose: 30 mg Haloperidol (Haloperidol 5 Mg Tab) 5 mg PO TID PRN PRN Reason: Agitation/psychosis Stop: 10/15/22 01:55 Last Admin: 09/27/22 08:17 Dose: 5 mg Ibuprofen (Ibuprofen 200 Mg Tab) 400 mg PO TID PRN PRN Reason: pain, headache Stop: 10/16/22 11:47 Last Admin: 09/27/22 08:16 Dose: 400 mg Lorazepam (Lorazepam 1 Mg Tab) 1 mg PO Q4H PRN PRN Reason: Anxiety Stop: 10/22/22 11:45 Last Admin: 09/26/22 22:41 Dose: 1 mg Lorazepam (Lorazepam 2 Mg/1 Ml Vial) 1 mg IV Q4H PRN PRN Reason: Anxiety/Agitation Stop: 10/24/22 19:47 Last Admin: 09/26/22 18:37 Dose: 1 mg Ondansetron HCl (Ondansetron Inj 2 Mg/Ml 2 Ml Vial) 4 mg IV Q6H PRN PRN Reason: Nausea And Vomiting Stop: 10/16/22 12:04 Last Admin: 09/21/22 09:00 Dose: 4 mg Oxcarbazepine (Oxcarbazepine 150 Mg Tablet) 750 mg PO BID [facility] Stop: 10/14/22 23:44 Last Admin: 09/27/22 08:17 Dose: 750 mg Tamsulosin HCl (Tamsulosin Hcl 0.4 Mg Cap) 0.4 mg PO HS [facility] Stop: 10/20/22 11:18 Last Admin: 09/26/22 20:20 Dose: 0.4 mg
--- NOTE | 2022-09-27 11:38 | Psychiatric Progress Note ---
Date of Service September 27, 2022 Impression / Recommendations Impression 47 y/o man with schizoaffective disorder, bipolar type who's been off his medication and who recently had seizures in the ED in the context of having been off his high-dose anticonvulsants and benzodiazepine and having been administered olanzapine. Has been improving since restarting his medications with no further seizures and remains medically stable. On 303 commitment awaiting inpatient psychiatric placement. 09/27/2022:Ongoing acute priscila and psychosis with clanging, loosened associations, delusions of persecution and periods of acute agitation intermittently which seem to be related to delusions. Tolerating higher dose of Depakote and finidng prn haldol helpful. The patient remains hospitalized on a completed 303 involuntary commitment. This patient must remain on safety precautions with a 1-on-1 and is unable to leave the hospital AMA. 303 expires on 10/08/2022. (1) Schizoaffective disorder, bipolar type: Plan 09/27/2022: * Ongoing bed search. * Requires 1-on-1 due to 303 commitment, cannot leave AMA * Depakote ER 500mg qAM and 1000mg HS * Klonopin to 1mg BID * Oxcarbazepine 750mg BID * Haldol 5mg TID prn po for psychosis/agitation 09/26/2022: * Ongoing bed search. * Requires 1-on-1 due to 303 commitment, cannot leave AMA * Depakote ER 500mg qAM and 1000mg HS * Klonopin to 1mg BID * Oxcarbazepine 750mg BID * Haldol 5mg TID prn po for psychosis/agitation 09/25/2022: * Ongoing bed search. * Requires 1-on-1 due to 303 commitment, cannot leave AMA * Increase to Depakote ER 500mg qAM and Depakote ER 1000mg HS * Continue Klonopin to 1mg BID * Continue Oxcarbazepine 750mg BID * Haldol 5mg TID prn po for psychosis/agitation 09/24/2022: * Ongoing bed search. * Requires 1-on-1 due to 303 commitment, cannot leave AMA * Continue with Depakote ER 500mg BID, likely increase again in 2-3 days * Increase Klonopin to 1mg BID * Continue Oxcarbazepine 750mg BID * Haldol 5mg TID prn po for psychosis/agitation 09/23/2022: * Ongoing bed search. * Requires 1-on-1 due to 303 commitment, cannot leave AMA * Increase Depakote ER to 500mg BID * Continue Klonopin 1mg daily, Oxcarbazepine 750mg BID * Haldol 5mg BID prn po for psychosis/agitation 09/22/2022: Requires psychiatric admission. Bed search continues. Please do consider titrating divalproex. It would be appropriate to check trough levels of valproate and oxcarbazepine to assess whether they're in the therapeutic range. 09/21/2022: Requires psychiatric admission. Bed search is underway. 09/20/2022: Based on pt's presentation today, I can only recommend staying the current cours e in terms of psychiatric treatment. He will still require psychiatric admission once medically stable. 09/19/2022: By history, pt has required much higher divalproex ER dose (3,000 mg/day), along with oxcarbazepine, to suppress priscila and seizures. If he can't tolerate whole divalproex ER tablets, divalproex or valproic acid could be used with a target dose of 2,000 mg/day. In either case, dose should be titrated to a target blood level in the range of 85-125 g/mL. 09/18/2022: Pt is now subject to a section 303 involuntary commitment. He must remain in the hospital on 1:1 observation until he's determined to be medically stable. At that time, a psychiatric bed search will need to be undertaken. Consider more aggressive titration of divalproex. 09/17/2022: Continue current medication regimen. Pt will require a hearing to enable continuing hospitalization (because he certainly can't be discharged to home). 09/16/2022: Since pt clearly needs both antiepileptic and antimanic pharmacotherapy, it would seem eminently reasonable to resume the divalproex and oxcarbazepine he'd previously been taking. I agree with your decision not to resume the 3,000mg/day divalproex ER and 1,200 mg/day oxcarbazepine doses right away, but would suggest titrating as aggressively as tolerated. Note that divalproex ER is not equally bioavailable as IR divalproex. If it's necessary to crush tablets or use any dosage form other than ER, total dose may need to be 20-25% lower than with the ER form. With divalproex, the target antimanic range of blood level is 85-125 g/mL (higher than the typical therapeutic range for seizure control of 50-100 g/mL) and dose should be titrated based on blood level. For oxcarbazepine there is fairly scant published data about therapeutic blood level for priscila, but for carbamazepine it's fairly clear that the target range is the same as for seizure control, so oxcarbazepine dose should be titrated to usual antiepileptic blood level. Pt was on fairly high-dose (4 mg/day) clonazepam until some unknown time prior to admission, and it's possible that some of the waxing and waning cognition we're seeing could represent a degree of benzodiazepine withdrawal. It's also obviously antiepileptic and wouldn't require titration via blood level, so I recommend resuming 2 mg BID. If pt won't accept oral medication, clonazepam is essentially equipotent with lorazepam, though doses of the latter would need to be divided due to shorter half-life (e.g., 1 mg QID). If pt requires parenteral antipsychotic medication due to potentially dangerous behavior appearing to arise from psychosis, haloperidol would appear to be the safest option (administeredwithoutdiphenhydramine due to the reported intolerance). This could be given as haloperidol 5 mg IM and lorazepam 2 mg IM q8 hr PRN psychosis. An administrative decision has previously been made that pt is not a candidate for admission to the psychiatric unit at [facility]. He certainly will require psychiatric hospitalization. A bed search is underway, but if he is still here on Sunday he will need a commitment hearing if he is to remain in the hospital involuntarily any longer. With respect to his involuntary status, it is my opinion that at present Mr. Becker does not have the capacity to make rational and informed decisions about healthcare so, even if he were to agree to remain in the hospital, we would not be able to use such agreement as informed consent and will continue to need to rely on the legal mechanisms for involuntary admission. Suicide Risk Level Suicide Risk Level: Low (q15 min observation checks) (any risk is due to disorganized behavior rather than suicidality as he consistently denies SI, remains on 1-on-1 due to being on medical floor and on 303 commitment) Risk Factors Assessment Male: Yes : Yes Do You Have Access To A Gun?: No Health Problems: Yes Mental Health Diagnoses: Yes Previous Psychiatric Hospitalization: Yes Protective Factors Assessment Responsible for Young Children: No Employed: No Stable Relationships: No Interval History Identifying Information ROGER BECKER is a 47-year-old male with a history of schizoaffective disorder, admitted on 09/14/2022 for seizures. Consult is by the hospitalist service for psychosis. Chief Complaint "What about this IV, what about the electrical wires that can shock". Review of Systems Notes sleeping a bit more, normal appetite Subjective Subjective Patient was seen & assessed and interval progress reviewed. Slept fairly well overnight. Today woke up after a bad dream and then told his RN he needed to speak with me. Starts by asking me hard to follow questions about his various care providers in the hospital and then became focused on concerns about wires in his IV or under his bed that are going to shock him. Reassured him that he is safe and that no wires are present in his IV site. He denies any side effects to his psychiatric medication. Physical Exam Psychiatric Orientation: alert and oriented to place Apperance: + disheveled Eye Contact: + fair eye contact Motor Behavior: + psychomotor agitation Speech: + pressured speech; + abnormal rate/rhythm/volume of speech (rapid) Affect: + labile affect Mood: + dysphoric mood Thought Process: + looseness of associations Thought Content: + paranoid, + delusions and + persecution Suicidal Thoughts: denies suicidal thoughts Homicidal Thoughts: denies homicidal thoughts Hallucinations: + auditory hallucinations (seems to be responding to possible internal stimuli) Insight: + severely impaired insight Judgment: + limited judgement Vital Signs (Past 24 Hours) Last Vital Signs Temp 36.4 C L 09/27/22 10:49 Pulse 91 H 09/27/22 10:49 Resp 18 09/27/22 10:49 BP 147/77 H 09/27/22 10:49 Pulse Ox 93 09/27/22 10:49 O2 Del Method Room Air 09/27/22 10:49 O2 Flow Rate 2 09/15/22 21:48 FiO2 30 09/14/22 22:35 Results & Data ([facility]) Laboratory Results Laboratory Results - last 24 hr 09/26/22 11:23 Urine Color Yellow Urine Appearance Clear Urine pH 7.5 Ur Specific [place] 1.011 Urine Protein Negative Urine Glucose (UA) Negative Urine Ketones Negative Urine Blood 3+ H Urine Nitrite Negative Urine Bilirubin Negative Urine Urobilinogen Negative Ur Leukocyte Esterase Negative Urine WBC (Auto) 1-5 Urine RBC (Auto) >30 H U Hyaline Cast (Auto) 0 U Epithel Cells (Auto) 5-10 H Urine Bacteria (Auto) Negative Current Inpatient Medications Current Inpatient Medications: Current Inpatient Medications Acetaminophen (Acetaminophen 500 Mg Tab) 500 mg PO Q6H PRN PRN Reason: pain/fever Stop: 10/15/22 19:55 Last Admin: 09/24/22 13:51 Dose: 500 mg Benztropine Mesylate (Benztropine Mesylate 1 Mg Tab) 1 mg PO BID PRN PRN Reason: muscle stiffness Stop: 10/24/22 20:59 Clonazepam (Clonazepam 1 Mg Tab) 1 mg PO BID CALI Stop: 10/24/22 20:59 Last Admin: 09/27/22 08:16 Dose: 1 mg Divalproex Sodium (Divalproex Extended Release 500 Mg Tab) 500 mg PO QAM CALI Stop: 10/26/22 08:59 Last Admin: 09/27/22 08:17 Dose: 500 mg Divalproex Sodium (Divalproex Extended Release 500 Mg Tab) 1,000 mg PO HS [facility] Stop: 10/25/22 20:59 Last Admin: 09/26/22 20:20 Dose: 1,000 mg Enoxaparin Sodium (Enoxaparin Inj 30 Mg/0.3 Ml Syr) 30 mg SQ HS CALI Stop: 10/25/22 20:59 Last Admin: 09/26/22 20:19 Dose: 30 mg Haloperidol (Haloperidol 5 Mg Tab) 5 mg PO TID PRN PRN Reason: Agitation/psychosis Stop: 10/15/22 01:55 Last Admin: 09/27/22 08:17 Dose: 5 mg Ibuprofen (Ibuprofen 200 Mg Tab) 400 mg PO TID PRN PRN Reason: pain, headache Stop: 10/16/22 11:47 Last Admin: 09/27/22 08:16 Dose: 400 mg Lorazepam (Lorazepam 1 Mg Tab) 1 mg PO Q4H PRN PRN Reason: Anxiety Stop: 10/22/22 11:45 Last Admin: 09/26/22 22:41 Dose: 1 mg Lorazepam (Lorazepam 2 Mg/1 Ml Vial) 1 mg IV Q4H PRN PRN Reason: Anxiety/Agitation Stop: 10/24/22 19:47 Last Admin: 09/26/22 18:37 Dose: 1 mg Ondansetron HCl (Ondansetron Inj 2 Mg/Ml 2 Ml Vial) 4 mg IV Q6H PRN PRN Reason: Nausea And Vomiting Stop: 10/16/22 12:04 Last Admin: 09/21/22 09:00 Dose: 4 mg Oxcarbazepine (Oxcarbazepine 150 Mg Tablet) 750 mg PO BID CALI Stop: 10/14/22 23:44 Last Admin: 09/27/22 08:17 Dose: 750 mg Tamsulosin HCl (Tamsulosin Hcl 0.4 Mg Cap) 0.4 mg PO HS CALI Stop: 10/20/22 11:18 Last Admin: 09/26/22 20:20 Dose: 0.4 mg Mental Health & Subst Abuse Tx Therapist Name of Therapist: Mat Ch @ [facility] (?) Inspector Scales Name of Inspector Scales: Joann santiago [place] [facility] Post Discharge Appointments Primary Care Physician Name Of Family Doctor/PCP: Lico De Jesus
[2022-09-27] MEDS: LORazepam 2 MG/1 ML VIAL IV PRN ×2 (13:43→20:03)
[2022-09-27] MEDS: TAMSULOSIN HCL 0.4 MG CAP PO SCH (20:04)
[2022-09-27] MEDS: ENOXAPARIN INJ 30 MG/0.3 ML SYR SQ SCH (20:09)
[2022-09-28] MEDS: ACETAMINOPHEN 500 MG TAB PO PRN (01:19)
[2022-09-28] MEDS: LORazepam 2 MG/1 ML VIAL IV PRN (06:27)
[2022-09-28] MEDS: DIVALPROEX EXTENDED RELEASE 500 MG TAB PO SCH ×2 (09:48→20:02)
[2022-09-28] MEDS: OXcarbazepine 150 MG TABLET PO SCH ×2 (09:48→20:03)
[2022-09-28] MEDS: clonazePAM 1 MG TAB PO SCH ×2 (09:49→20:03)
[2022-09-28 10:26] LABS: Hematocrit (blood only) 39.2 % (42.0-52.0); Hemoglobin 13.6 g/dl (14.0-18.0); Mean Corpuscular Hemoglobin 32.2 pg (25.0-34.0); Mean Corpuscular Hgb Conc 34.7 g/dL (32.0-36.0); Mean Corpuscular Volume 92.7 fL (80.0-100.0); Mean Platelet Volume 8.7 fL (9.4-12.4); Platelet Count 413 K/uL (130-400); RDW Coefficient of Variation 12.8 % (11.5-14.5); RDW Standard Deviation 43.5 fL (36.4-46.3); Red Blood Count 4.23 M/uL (4.70-6.10); White Blood Count 5.34 K/ul (4.8-10.8)
[2022-09-28 10:40] LABS: BUN Creatinine Ratio 14.9 (10-20); Calcium 9.7 mg/dl (8.6-10.3); Creatinine Clr Calc Pharmacy 116.6 ml/min; Est GFR (African American) 128.2 ml/min; Est GFR (Non-African American) 110.6 ml/min; Potassium 4.7 mmol/L (3.5-5.1)
--- NOTE | 2022-09-28 14:01 | Psychiatric Progress Note ---
Date of Service September 28, 2022 Impression / Recommendations Impression 47 y/o man with schizoaffective disorder, bipolar type who's been off his medication and who recently had seizures in the ED in the context of having been off his high-dose anticonvulsants and benzodiazepine and having been administered olanzapine. Has been improving since restarting his medications with no further seizures and remains medically stable. On 303 commitment awaiting inpatient psychiatric placement. 09/28/2022:Ongoing acute priscila and psychosis with clanging, loosened associations, delusions of persecution but sleeping better with higher dose of Depakote and haldol prn. Given good tolerance to haldol will schedule this to help with ongoing psychosis. No evidence that his movements of the hands and feet are related to EPS, could be bizarre TD manifestation versus medication side effect versus manifestation of psychomotor agitation. Per review of his chart and [facility] discharge summary he was previously on Depakote doses of as high as 1,500mg BID and was on clozapine after [facility] discharge in April 2022. The patient remains hospitalized on a completed 303 involuntary commitment. This patient must remain on safety precautions with a 1-on-1 and is unable to leave the hospital AMA. 303 expires on 10/08/2022. (1) Schizoaffective disorder, bipolar type: Plan 09/28/2022: * Ongoing bed search. * Requires 1-on-1 due to 303 commitment, cannot leave AMA * Depakote ER 500mg qAM and 1000mg HS * Klonopin to 1mg BID * Oxcarbazepine 750mg BID * Schedule Haldol 5mg BID po * Haldol 5mg BID prn po for psychosis/agitation 09/27/2022: * Ongoing bed search. * Requires 1-on-1 due to 303 commitment, cannot leave AMA * Depakote ER 500mg qAM and 1000mg HS * Klonopin to 1mg BID * Oxcarbazepine 750mg BID * Haldol 5mg TID prn po for psychosis/agitation 09/26/2022: * Ongoing bed search. * Requires 1-on-1 due to 303 commitment, cannot leave AMA * Depakote ER 500mg qAM and 1000mg HS * Klonopin to 1mg BID * Oxcarbazepine 750mg BID * Haldol 5mg TID prn po for psychosis/agitation 09/25/2022: * Ongoing bed search. * Requires 1-on-1 due to 303 commitment, cannot leave AMA * Increase to Depakote ER 500mg qAM and Depakote ER 1000mg HS * Continue Klonopin to 1mg BID * Continue Oxcarbazepine 750mg BID * Haldol 5mg TID prn po for psychosis/agitation 09/24/2022: * Ongoing bed search. * Requires 1-on-1 due to 303 commitment, cannot leave AMA * Continue with Depakote ER 500mg BID, likely increase again in 2-3 days * Increase Klonopin to 1mg BID * Continue Oxcarbazepine 750mg BID * Haldol 5mg TID prn po for psychosis/agitation 09/23/2022: * Ongoing bed search. * Requires 1-on-1 due to 303 commitment, cannot leave AMA * Increase Depakote ER to 500mg BID * Continue Klonopin 1mg daily, Oxcarbazepine 750mg BID * Haldol 5mg BID prn po for psychosis/agitation 09/22/2022: Requires psychiatric admission. Bed search continues. Please do consider titrating divalproex. It would be appropriate to check trough levels of valproate and oxcarbazepine to assess whether they're in the therapeutic range. 09/21/2022: Requires psychiatric admission. Bed search is underway. 09/20/2022: Based on pt's presentation today, I can only recommend staying the current course in terms of psychiatric treatment. He will still require psychiatric admission once medically stable. 09/19/2022: By history, pt has required much higher divalproex ER dose (3,000 mg/day), along with oxcarbazepine, to suppress priscila and seizures. If he can't tolerate whole divalproex ER tablets, divalproex or valproic acid could be used with a target dose of 2,000 mg/day. In either case, dose should be titrated to a target blood level in the range of 85-125 g/mL. 09/18/2022: Pt is now subject to a section 303 involuntary commitment. He must remain in the hospital on 1:1 observation until he's determined to be medically stable. At that time, a psychiatric bed search will need to be undertaken. Consider more aggressive titration of divalproex. 09/17/2022: Continue current medication regimen. Pt will require a hearing to enable continuing hospitalization (because he certainly can't be discharged to home). 09/16/2022: Since pt clearly needs both antiepileptic and antimanic pharmacotherapy, it would seem eminently reasonable to resume the divalproex and oxcarbazepine he'd previously been taking. I agree with your decision not to resume the 3,000mg/day divalproex ER and 1,200 mg/day oxcarbazepine doses right away, but would suggest titrating as aggressively as tolerated. Note that divalproex ER is not equally bioavailable as IR divalproex. If it's necessary to crush tablets or use any dosage form other than ER, total dose may need to be 20-25% lower than with the ER form. With divalproex, the target antimanic range of blood level is 85-125 g/mL (higher than the typical therapeutic range for seizure control of 50-100 g/mL) and dose should be titrated based on blood level. For oxcarbazepine there is fairly scant published data about therapeutic blood level for priscila, but for carbamazepine it's fairly clear that the target range is the same as for seizure control, so oxcarbazepine dose should be titrated to usual antiepileptic blood level. Pt was on fairly high-dose (4 mg/day) clonazepam until some unknown time prior to admission, and it's possible that some of the waxing and waning cognition we're seeing could represent a degree of benzodiazepine withdrawal. It's also obviously antiepileptic and wouldn't require titration via blood level, so I recommend resuming 2 mg BID. If pt won't accept oral medication, clonazepam is essentially equipotent with lorazepam, though doses of the latter would need to be divided due to shorter half-life (e.g., 1 mg QID). If pt requires parenteral antipsychotic medication due to potentially dangerous behavior appearing to arise from psychosis, haloperidol would appear to be the safest option (administeredwithoutdiphenhydramine due to the reported intolerance). This could be given as haloperidol 5 mg IM and lorazepam 2 mg IM q8 hr PRN psychosis. An administrative decision has previously been made that pt is not a candidate for admission to the psychiatric unit at [facility]. He certainly will require psychiatric hospitalization. A bed search is underway, but if he is still here on Sunday he will need a commitment hearing if he is to remain in the hospital involuntarily any longer. With respect to his involuntary status, it is my opinion that at present Mr. Becker does not have the capacity to make rational and informed decisions about healthcare so, even if he were to agree to remain in the hospital, we would not be able to use such agreement as informed consent and will continue to need to rely on the legal mechanisms for involuntary admission. Suicide Risk Level Suicide Risk Level: Low (q15 min observation checks) (any risk is due to disorganized behavior rather than suicidality as he consistently denies SI, remains on -on- due to being on medical floor and on 303 commitment) Risk Factors Assessment Male: Yes : Yes Do You Have Access To A Gun?: No Health Problems: Yes Mental Health Diagnoses: Yes Previous Psychiatric Hospitalization: Yes Protective Factors Assessment Responsible for Young Children: No Employed: No Stable Relationships: No Interval History Identifying Information ROGER BECKER is a 47-year-old male with a history of schizoaffective disorder, admitted on 09/14/2022 for seizures. Consult is by the hospitalist service for psychosis. Chief Complaint "I'm sleeping!". Subjective Subjective Patient was seen & assessed and interval progress reviewed. Appears to be s leeping but responds when gently prompted but then slightly irritable and dismissive. Denies any new medication side effects except ongoing tremors which he feels are due to the Depakote. He is not willing to increase the Depakote dose due to this. He is agreeable to me scheduling his haldol as he finds this helpful. Physical Exam Psychiatric Orientation: alert and oriented to place Apperance: + disheveled Eye Contact: + fair eye contact Motor Behavior: + psychomotor agitation and + tremor (vs psychomotor agitation, moves hands and feet repetitively ) Speech: + pressured speech; + abnormal rate/rhythm/volume of speech (rapid) Affect: + labile affect Mood: + dysphoric mood Thought Process: + looseness of associations Thought Content: + paranoid, + delusions and + persecution Suicidal Thoughts: denies suicidal thoughts Homicidal Thoughts: denies homicidal thoughts Hallucinations: + auditory hallucinations (seems to be responding to possible internal stimuli) Insight: + severely impaired insight Judgment: + limited judgement Vital Signs (Past 24 Hours) Last Vital Signs Temp 36.6 C 09/28/22 11:49 Pulse 85 09/28/22 11:49 Resp 22 09/28/22 11:49 BP 125/79 09/28/22 11:49 Pulse Ox 96 09/28/22 11:49 O2 Del Method Room Air 09/28/22 11:49 O2 Flow Rate 2 09/15/22 21:48 FiO2 30 09/14/22 22:35 Results & Data ([facility]) Laboratory Results Laboratory Results - last 24 hr 09/28/22 09/28/22 09:53 09:53 WBC 5.34 RBC 4.23 L Hgb 13.6 L Hct 39.2 L MCV 92.7 MCH 32.2 MCHC 34.7 RDW Std Deviation 43.5 RDW Coeff of Levy 12.8 Plt Count 413 H MPV 8.7 L Sodium 140 Potassium 4.7 Chloride 106 Carbon Dioxide 27 Anion Gap 7 BUN 11 Creatinine 0.74 Est Cr Clr Drug Dosing 116.6 Est GFR ( Amer) 128.2 Est GFR (Non-Af Amer) 110.6 BUN/Creatinine Ratio 14.9 Glucose 79 Calcium 9.7 Current Inpatient Medications Current Inpatient Medications: Current Inpatient Medications Acetaminophen (Acetaminophen 500 Mg Tab) 500 mg PO Q6H PRN PRN Reason: pain/fever Stop: 10/15/22 19:55 Last Admin: 09/28/22 01:19 Dose: 500 mg Benztropine Mesylate (Benztropine Mesylate 1 Mg Tab) 1 mg PO BID PRN PRN Reason: muscle stiffness Stop: 10/24/22 20:59 Clonazepam (Clonazepam 1 Mg Tab) 1 mg PO BID CALI Stop: 10/24/22 20:59 Last Admin: 09/28/22 09:49 Dose: 1 mg Divalproex Sodium (Divalproex Extended Release 500 Mg Tab) 500 mg PO QAM CALI Stop: 10/26/22 08:59 Last Admin: 09/28/22 09:48 Dose: 500 mg Divalproex Sodium (Divalproex Extended Release 500 Mg Tab) 1,000 mg PO HS CALI Stop: 10/25/22 20:59 Last Admin: 09/27/22 20:06 Dose: 1,000 mg Enoxaparin Sodium (Enoxaparin Inj 30 Mg/0.3 Ml Syr) 30 mg SQ HS CALI Stop: 10/25/22 20:59 Last Admin: 09/27/22 20:09 Dose: 30 mg Haloperidol (Haloperidol 5 Mg Tab) 5 mg PO TID PRN PRN Reason: Agitation/psychosis Stop: 10/15/22 01:55 Last Admin: 09/27/22 14:18 Dose: 5 mg Ibuprofen (Ibuprofen 200 Mg Tab) 400 mg PO TID PRN PRN Reason: pain, headache Stop: 10/16/22 11:47 Last Admin: 09/27/22 08:16 Dose: 400 mg Lorazepam (Lorazepam 1 Mg Tab) 1 mg PO Q4H PRN PRN Reason: Anxiety Stop: 10/22/22 11:45 Last Admin: 09/26/22 22:41 Dose: 1 mg Lorazepam (Lorazepam 2 Mg/1 Ml Vial) 1 mg IV Q4H PRN PRN Reason: Anxiety/Agitation Stop: 10/24/22 19:47 Last Admin: 09/28/22 06:27 Dose: 1 mg Ondansetron HCl (Ondansetron Inj 2 Mg/Ml 2 Ml Vial) 4 mg IV Q6H PRN PRN Reason: Nausea And Vomiting Stop: 10/16/22 12:04 Last Admin: 09/21/22 09:00 Dose: 4 mg Oxcarbazepine (Oxcarbazepine 150 Mg Tablet) 750 mg PO BID CALI Stop: 10/14/22 23:44 Last Admin: 09/28/22 09:48 Dose: 750 mg Tamsulosin HCl (Tamsulosin Hcl 0.4 Mg Cap) 0.4 mg PO HS CALI Stop: 10/20/22 11:18 Last Admin: 09/27/22 20:04 Dose: 0.4 mg Mental Health & Subst Abuse Tx Therapist Name of Therapist: Mat Ch @ [facility] (?) Administrative Services Manager Name of Administrative Services Manager: Joann santiago [place] [facility] Post Discharge Appointments Primary Care Physician Name Of Family Doctor/PCP: Lico De Jesus
--- NOTE | 2022-09-28 16:12 | Hospitalist Progress Note ---
Date of Service September 28, 2022 Assessment & Plan (1) Seizure: Plan: No more seizures (2) Schizoaffective disorder: Plan: Will need inpatient psychiatric care Plan Schizoaffective disorder/personality disorder/mood disorder, suboptimal following recent confinement of [facility] Appreciate psychiatry input and recommendation-on Depakote and oxcarbazepine for mood stabilization. Per psychiatry, 303 hearing was had on 09/18 for involuntary admission which was granted. Patient is still requiring one-to-one sitter Medically stable for discharge Awaiting inpatient psychiatric placement. Recurrent seizures status post intubation for airway protection- Possibly from high-dose Zyprexa administration Patient self extubated 09/14/22 and has been stable on NC, now saturating well in room air Currently on Depakote and oxcarbazepine, also for his psychiatric issues EEG: Potentially abnormal awake/drowsy EEG with evidence of left parietal slowing and sharps. No evidence of persistent seizure activity. MRI brain: 1. No acute infarct or intracranial hemorrhage. 2. The temporal lobes are symmetric. 3. A few punctate foci of T2 hyperintensity seen within the periventricular and subcortical white matter of the supratentorial brain. These are nonspecific but greater than expected for age. Therefore, this could represent early microvascular ischemic change, migraines, Lyme's disease, or less likely a demyelinating disease or vasculitis. The patient remains stable on current medications Lyme serology negative No more seizures Electrolyte imbalance Hypokalemia-resolved Hypophosphatemia-resolved Transient atrial flutter secondary to illness- Patient NSR post Cardizem administration at the ER. Echo reviewed-sinus rhythm in 80s, was on a mechanical ventilation during study, mild concentric LVH, apex was not well visualized otherwise LV wall motion is normal, LV was hyperdynamic and the EF was more than 70%. There is no significant tricuspid regurgitation and right ventricle is normal in size and function. Currently in sinus rhythm Urinary retention Giles removed and urinating spontaneously cont flomax at night Benadryl and Klonopin have been discontinued which will help urinary symptoms DVT proph: Lovenox Full code Dispo-medically stable for inpatient psychiatric facility. Katelyn Snyder DO [facility] Hospitalist ADDENDUM: shortly after leaving the room he had an outburst and was running down the hallway. Yemi Grewal was called and security/staff were able to get him back into the room and take the PO Haldol. There was no improvement after hald hour and he was charging the door with security unable to leave. Ativan 1mg SL was given followed by Haldol 5mg IM and Benadryl 50mg IM now. Another dose of benadyrl and haldol can be given overnight as needed per psychiatry who was notified of the outburst this afternoon. [facility] Admission and Anticipated Discharge Date Admission Date: September 14, 2022 Subjective 47 yo M with schizoaffective disorder, bipolar who has been off anticonvulsant medications He is currently awaiting inpatient psychiatric placement. Today he was pacing per RN but appears content/less agitated from yesterday. Saw his mom today and he said that went well and that she should be his first contact. Physical Exam Physical Exam: CONSTITUTIONAL: pt lying prone in bed upon my arrival. WNWD, vitals as above, NAD EYES: normal conjunctivae, no scleral icterus ENT: external ear and nose normal, MMM NECK: trachea midline RESPIRATORY: clear to auscultation bilaterally, no crackles, rales or wheezes, normal respiratory effort CARDIOVASCULAR: regular rate and rhythm, S1 and 2 heard without murmurs, gallops or rubs, no JVD, no peripheral edema CHEST: inspection of chest was normal GASTROINTESTINAL: soft, nontender, ND, no guarding. MUSCULOSKELETAL: strength 5/5 throughout, head is normocephalic and atraumatic, he can easily maneuver around the bed SKIN: warm and dry NEUROLOGIC: CN 2-12 grossly intact, no sensory deficit, normal cognition, normal speech, generalized shakiness/tremor in all limbs-same as yesterday. PSYCHIATRIC: alert cooperative , agitated, appears oriented but this was not totally clear. Results & Data Results & Data Vital Signs (Past 12 Hours) Vital Signs Temp Pulse Resp BP Pulse Ox O2 Del Method 09/28/22 16:10 36.8 C 105 H 20 144/82 H 95 Room Air 09/28/22 11:49 36.6 C 85 22 125/79 96 Room Air 09/28/22 07:34 36.9 C 135 H 20 135/84 94 Room Air Laboratory Results Short CBC 09/28/22 Range/Units 09:53 WBC 5.34 (4.8-10.8) K/ul Hgb 13.6 L (14.0-18.0) g/dl Hct 39.2 L (42.0-52.0) % Plt Count 413 H (130-400) K/uL BMP 09/28/22 09:53 Sodium 140 Potassium 4.7 Chloride 106 Carbon Dioxide 27 BUN 11 Creatinine 0.74 Glucose 79 Calcium 9.7 Medications Administered Current Inpatient Medications Acetaminophen (Acetaminophen 500 Mg Tab) 500 mg PO Q6H PRN PRN Reason: pain/fever Stop: 10/15/22 19:55 Last Admin: 09/28/22 01:19 Dose: 500 mg Benztropine Mesylate (Benztropine Mesylate 1 Mg Tab) 1 mg PO BID PRN PRN Reason: muscle stiffness Stop: 10/24/22 20:59 Clonazepam (Clonazepam 1 Mg Tab) 1 mg PO BID [facility] Stop: 10/24/22 20:59 Last Admin: 09/28/22 09:49 Dose: 1 mg Divalproex Sodium (Divalproex Extended Release 500 Mg Tab) 500 mg PO QAM [facility] Stop: 10/26/22 08:59 Last Admin: 09/28/22 09:48 Dose: 500 mg Divalproex Sodium (Divalproex Extended Release 500 Mg Tab) 1,000 mg PO HS [facility] Stop: 10/25/22 20:59 Last Admin: 09/27/22 20:06 Dose: 1,000 mg Enoxaparin Sodium (Enoxaparin Inj 30 Mg/0.3 Ml Syr) 30 mg SQ HS [facility] Stop: 10/25/22 20:59 Last Admin: 09/27/22 20:09 Dose: 30 mg Haloperidol (Haloperidol 5 Mg Tab) 5 mg PO BID PRN PRN Reason: Agitation/psychosis Stop: 10/24/22 10:19 Haloperidol (Haloperidol 5 Mg Tab) 5 mg PO BID [facility] Stop: 10/28/22 20:59 Ibuprofen (Ibuprofen 200 Mg Tab) 400 mg PO TID PRN PRN Reason: pain, headache Stop: 10/16/22 11:47 Last Admin: 09/27/22 08:16 Dose: 400 mg Lorazepam (Lorazepam 1 Mg Tab) 1 mg PO Q4H PRN PRN Reason: Anxiety Stop: 10/22/22 11:45 Last Admin: 09/26/22 22:41 Dose: 1 mg Lorazepam (Lorazepam 2 Mg/1 Ml Vial) 1 mg IV Q4H PRN PRN Reason: Anxiety/Agitation Stop: 10/24/22 19:47 Last Admin: 09/28/22 06:27 Dose: 1 mg Ondansetron HCl (Ondansetron Inj 2 Mg/Ml 2 Ml Vial) 4 mg IV Q6H PRN PRN Reason: Nausea And Vomiting Stop: 10/16/22 12:04 Last Admin: 09/21/22 09:00 Dose: 4 mg Oxcarbazepine (Oxcarbazepine 150 Mg Tablet) 750 mg PO BID [facility] Stop: 10/14/22 23:44 Last Admin: 09/28/22 09:48 Dose: 750 mg Tamsulosin HCl (Tamsulosin Hcl 0.4 Mg Cap) 0.4 mg PO HS [facility] Stop: 10/20/22 11:18 Last Admin: 09/27/22 20:04 Dose: 0.4 mg
[2022-09-28] MEDS: haloperidoL 5 MG TAB PO PRN (17:03)
[2022-09-28] MEDS ORDERED: LORazepam 1 MG TAB SL STA (17:48)
[2022-09-28] MEDS ORDERED: HALOPERIDOL DECANOATE INJ 50 MG/ML VIAL IM ONE (17:51)
[2022-09-28] MEDS ORDERED: diphenhydrAMINE 50 MG/ML VIAL IM STA (17:52)
[2022-09-28] MEDS ORDERED: HALOPERIDOL LACTATE 5 MG/ML 1 ML VIAL IM ONE (18:30)
[2022-09-28] MEDS: ENOXAPARIN INJ 30 MG/0.3 ML SYR SQ SCH (20:01)
[2022-09-28] MEDS: TAMSULOSIN HCL 0.4 MG CAP PO SCH (20:02)
[2022-09-28] MEDS: haloperidoL 5 MG TAB PO SCH (20:02)
[2022-09-29] MEDS: LORazepam 2 MG/1 ML VIAL IV PRN ×3 (00:45→20:41)
[2022-09-29] MEDS: haloperidoL 5 MG TAB PO SCH ×2 (09:20→20:06)
[2022-09-29] MEDS: OXcarbazepine 150 MG TABLET PO SCH ×2 (09:20→20:06)
[2022-09-29] MEDS: DIVALPROEX EXTENDED RELEASE 500 MG TAB PO SCH ×2 (09:20→20:09)
[2022-09-29] MEDS: clonazePAM 1 MG TAB PO SCH ×2 (09:22→20:05)
--- NOTE | 2022-09-29 12:53 | Psychiatric Progress Note ---
Date of Service September 29, 2022 Impression / Recommendations Impression 47 y/o man with schizoaffective disorder, bipolar type who's been off his medication and who recently had seizures in the ED in the context of having been off his high-dose anticonvulsants and benzodiazepine and having been administered olanzapine. Has been improving since restarting his medications with no further seizures and remains medically stable. On 303 commitment awaiting inpatient psychiatric placement. 09/29/2022:Ongoing acute priscila and psychosis with clanging, loosened associations but sleeping better with higher dose of Depakote and haldol now scheduled. He's been adherent with all of his medications and requests prns. Will start propranolol 10mg BID to see if this has any beneficial effect on his tremors versus possible akathisia. The patient remains hospitalized on a completed 303 involuntary commitment. This patient must remain on safety precautions with a 1-on-1 and is unable to leave the hospital AMA. 303 expires on 10/08/2022. (1) Schizoaffective disorder, bipolar type: Plan 09/29/2022: * Ongoing bed search. * Requires 1-on-1 due to 303 commitment, cannot leave AMA * Depakote ER 500mg qAM and 1000mg HS * Klonopin 1mg BID * Oxcarbazepine 750mg BID * Haldol 5mg BID po * Haldol 5mg BID prn po for psychosis/agitation * Propranolol 10mg BID po 09/28/2022: * Ongoing bed search. * Requires 1-on-1 due to 303 commitment, cannot leave AMA * Depakote ER 500mg qAM and 1000mg HS * Klonopin to 1mg BID * Oxcarbazepine 750mg BID * Schedule Haldol 5mg BID po * Haldol 5mg BID prn po for psychosis/agitation 09/27/2022: * Ongoing bed search. * Requires 1-on-1 due to 303 commitment, cannot leave AMA * Depakote ER 500mg qAM and 1000mg HS * Klonopin to 1mg BID * Oxcarbazepine 750mg BID * Haldol 5mg TID prn po for psychosis/agitation 09/26/2022: * Ongoing bed search. * Requires 1-on-1 due to 303 commitment, cannot leave AMA * Depakote ER 500mg qAM and 1000mg HS * Klonopin to 1mg BID * Oxcarbazepine 750mg BID * Haldol 5mg TID prn po for psychosis/agitation 09/25/2022: * Ongoing bed search. * Requires 1-on-1 due to 303 commitment, cannot leave AMA * Increase to Depakote ER 500mg qAM and Depakote ER 1000mg HS * Continue Klonopin to 1mg BID * Continue Oxcarbazepine 750mg BID * Haldol 5mg TID prn po for psychosis/agitation 09/24/2022: * Ongoing bed search. * Requires 1-on-1 due to 303 commitment, cannot leave AMA * Continue with Depakote ER 500mg BID, likely increase again in 2-3 days * Increase Klonopin to 1mg BID * Continue Oxcarbazepine 750mg BID * Haldol 5mg TID prn po for psychosis/agitation 09/23/2022: * Ongoing bed search. * Requires 1-on-1 due to 303 commitment, cannot leave AMA * Increase Depakote ER to 500mg BID * Continue Klonopin 1mg daily, Oxcarbazepine 750mg BID * Haldol 5mg BID prn po for psychosis/agitation 09/22/2022: Requires psychiatric admission. Bed search continues. Please do consider titrating divalproex. It would be appropriate to check trough levels of valproate and oxcarbazepine to assess whether they're in the therapeutic range. 09/21/2022: Requires psychiatric admission. Bed search is underway. 09/20/2022: Based on pt's presentation today, I can only recommend staying the current course in terms of psychiatric treatment. He will still require psychiatric admission once medically stable. 09/19/2022: By history, pt has required much higher divalproex ER dose (3,000 mg/day), along with oxcarbazepine, to suppress priscila and seizures. If he can't tolerate whole divalproex ER tablets, divalproex or valproic acid could be used with a target dose of 2,000 mg/day. In either case, dose should be titrated to a target blood level in the range of 85-125 g/mL. 09/18/2022: Pt is now subject to a section 303 involuntary commitment. He must remain in the hospital on 1:1 observation until he's determined to be medically stable. At that time, a psychiatric bed search will need to be undertaken. Consider more aggressive titration of divalproex. 09/17/2022: Continue current medication regimen. Pt will require a hearing to enable continuing hospitalization (because he certainly can't be discharged to home). 09/16/2022: Since pt clearly needs both antiepileptic and antimanic pharmacotherapy, it would seem eminently reasonable to resume the divalproex and oxcarbazepine he'd previously been taking. I agree with your decision not to resume the 3,000mg/day divalproex ER and 1,200 mg/day oxcarbazepine doses right away, but would suggest titrating as aggressively as tolerated. Note that divalproex ER is not equally bioavailable as IR divalproex. If it's necessary to crush tablets or use any dosage form other than ER, total dose may need to be 20-25% lower than with the ER form. With divalproex, the target antimanic range of blood level is 85-125 g/mL (higher than the typical therapeutic range for seizure control of 50-100 g/mL) and dose should be titrated based on blood level. For oxcarbazepine there is fairly scant published data about therapeutic blood level for priscila, but for carbamazepine it's fairly clear that the target range is the same as for seizure control, so oxcarbazepine dose should be titrated to usual antiepileptic blood level. Pt was on fairly high-dose (4 mg/day) clonazepam until some unknown time prior to admission, and it's possible that some of the waxing and waning cognition we're seeing could represent a degree of benzodiazepine withdrawal. It's also obviously antiepileptic and wouldn't require titration via blood level, so I recommend resuming 2 mg BID. If pt won't accept oral medication, clonazepam is essentially equipotent with lorazepam, though doses of the latter would need to be divided due to shorter half-life (e.g., 1 mg QID). If pt requires parenteral antipsychotic medication due to potentially dangerous behavior appearing to arise from psychosis, haloperidol would appear to be the safest option (administeredwithoutdiphenhydramine due to the reported intolerance). This could be given as haloperidol 5 mg IM and lorazepam 2 mg IM q8 hr PRN psychosis. An administrative decision has previously been made that pt is not a candidate for admission to the psychiatric unit at [facility]. He certainly will require psychiatric hospitalization. A bed search is underway, but if he is still here on Sunday he will need a commitment hearing if he is to remain in the hospital involuntarily any longer. With respect to his involuntary status, it is my opinion that at present Mr. Becker does not have the capacity to make rational and informed decisions about healthcare so, even if he were to agree to remain in the hospital, we would not be able to use such agreement as informed consent and will continue to need to rely on the legal mechanisms for involuntary admission. Suicide Risk Level Suicide Risk Level: Low (q15 min observation checks) (any risk is due to disorganized behavior rather than suicidality as he consistently denies SI, remains on 1-on- due to being on medical floor and on 303 commitment) Risk Factors Assessment Male: Yes : Yes Do You Have Access To A Gun?: No Health Problems: Yes Mental Health Diagnoses: Yes Previous Psychiatric Hospitalization: Yes Protective Factors Assessment Responsible for Young Children: No Employed: No Stable Relationships: No Interval History Identifying Information ROGER BECKER is a 47-year-old male with a history of schizoaffective disorder, admitted on 09/14/2022 for seizures. Consult is by the hospitalist service for psychosis. Chief Complaint "I'm nakey wakey". Review of Systems Notes eating, sleeping fairly well Subjective Subjective Patient was seen & assessed and interval progress reviewed. Behavioral code after he left his room and tried to walk off the unit but eventually agreed to return to his room. Tells me today this was because "I needed to get out of here quickly for a break". Tells me today "I'm putting myself back together". Still with evident tremors which he states started after depakote was initiated at the [facility]. Agrees to propranolol trial. Tells me "juan antoniolevy wakey" in response to saying bydeborah. Wearing a hospital emblem vest his mother bought him in the gift shop. Physical Exam Psychiatric Orientation: alert and oriented to place Apperance: + disheveled Eye Contact: + fair eye contact Motor Behavior: + psychomotor agitation and + tremor (vs psychomotor agitation, moves hands and feet repetitively ) Speech: + pressured speech; + abnormal rate/rhythm/volume of speech (rapid) Affect: + labile affect Mood: + dysphoric mood Thought Process: + looseness of associations Thought Content: + paranoid, + delusions and + persecution Suicidal Thoughts: denies suicidal thoughts Homicidal Thoughts: denies homicidal thoughts Hallucinations: + auditory hallucinations (seems to be responding to possible internal stimuli) Insight: + severely impaired insight Judgment: + limited judgement Vital Signs (Past 24 Hours) Last Vital Signs Temp 36.3 C L 09/29/22 11:33 Pulse 98 H 09/29/22 11:33 Resp 20 09/29/22 11:33 BP 124/77 09/29/22 11:33 Pulse Ox 94 09/29/22 11:33 O2 Del Method Room Air 09/29/22 11:33 O2 Flow Rate 2 09/15/22 21:48 FiO2 30 09/14/22 22:35 Results & Data ([facility]) Current Inpatient Medications Current Inpatient Medications: Current Inpatient Medications Acetaminophen (Acetaminophen 500 Mg Tab) 500 mg PO Q6H PRN PRN Reason: pain/fever Stop: 10/15/22 19:55 Last Admin: 09/28/22 01:19 Dose: 500 mg Benztropine Mesylate (Benztropine Mesylate 1 Mg Tab) 1 mg PO BID PRN PRN Reason: muscle stiffness Stop: 10/24/22 20:59 Clonazepam (Clonazepam 1 Mg Tab) 1 mg PO BID [facility] Stop: 10/24/22 20:59 Last Admin: 09/29/22 09:22 Dose: 1 mg Divalproex Sodium (Divalproex Extended Release 500 Mg Tab) 500 mg PO QAM [facility] Stop: 10/26/22 08:59 Last Admin: 09/29/22 09:20 Dose: 500 mg Divalproex Sodium (Divalproex Extended Release 500 Mg Tab) 1,000 mg PO HS [facility] Stop: 10/25/22 20:59 Last Admin: 09/28/22 20:02 Dose: 1,000 mg Enoxaparin Sodium (Enoxaparin Inj 30 Mg/0.3 Ml Syr) 30 mg SQ HS [facility] Stop: 10/25/22 20:59 Last Admin: 09/28/22 20:01 Dose: 30 mg Haloperidol (Haloperidol 5 Mg Tab) 5 mg PO BID PRN PRN Reason: Agitation/psychosis Stop: 10/24/22 10:19 Last Admin: 09/28/22 17:03 Dose: 5 mg Haloperidol (Haloperidol 5 Mg Tab) 5 mg PO BID [facility] Stop: 10/28/22 20:59 Last Admin: 09/29/22 09:20 Dose: 5 mg Ibuprofen (Ibuprofen 200 Mg Tab) 400 mg PO TID PRN PRN Reason: pain, headache Stop: 10/16/22 11:47 Last Admin: 09/27/22 08:16 Dose: 400 mg Lorazepam (Lorazepam 2 Mg/1 Ml Vial) 1 mg IV Q4H PRN PRN Reason: Anxiety/Agitation Stop: 10/24/22 19:47 Last Admin: 09/29/22 11:28 Dose: 1 mg Ondansetron HCl (Ondansetron Inj 2 Mg/Ml 2 Ml Vial) 4 mg IV Q6H PRN PRN Reason: Nausea And Vomiting Stop: 10/16/22 12:04 Last Admin: 09/21/22 09:00 Dose: 4 mg Oxcarbazepine (Oxcarbazepine 150 Mg Tablet) 750 mg PO BID [facility] Stop: 10/14/22 23:44 Last Admin: 09/29/22 09:20 Dose: 750 mg Tamsulosin HCl (Tamsulosin Hcl 0.4 Mg Cap) 0.4 mg PO HS [facility] Stop: 10/20/22 11:18 Last Admin: 09/28/22 20:02 Dose: 0.4 mg Mental Health & Subst Abuse Tx Therapist Name of Therapist: Mat [facility] @ [facility] (?) Case Aide Name of Case Aide: Joann santiago Gautier [facility] Post Discharge Appointments Primary Care Physician Name Of Family Doctor/PCP: Lico De Jesus
[2022-09-29] MEDS: PROPRANOLOL HCL 10 MG TAB PO SCH ×2 (13:23→20:06)
--- NOTE | 2022-09-29 14:27 | Hospitalist Progress Note ---
Date of Service September 29, 2022 Assessment & Plan (1) Schizoaffective disorder: (2) Seizure: Plan Schizoaffective disorder/personality disorder/mood disorder, suboptimal following recent confinement of [facility] Appreciate psychiatry input and recommendation-on Depakote and oxcarbazepine for mood stabilization. Per psychiatry, 303 hearing was held on 09/18 for involuntary admission which was granted. Patient is still requiring one-to-one sitter Medically stable for discharge Awaiting inpatient psychiatric placement. Seizure after Zyprexa in the ED- had 3 seizures which were attributed to high- dose Zyprexa administration S/p intubation for airway protection but he self extubated 09/14/22 and has been stable since Currently on Depakote and oxcarbazepine, also for his psychiatric issues EEG: Potentially abnormal awake/drowsy EEG with evidence of left parietal slowing and sharps. No evidence of persistent seizure activity. MRI brain: 1. No acute infarct or intracranial hemorrhage. 2. The temporal lobes are symmetric. 3. A few punctate foci of T2 hyperintensity seen within the periventricular and subcortical white matter of the supratentorial brain. These are nonspecific but greater than expected for age. Therefore, this could represent early microvascular ischemic change, migraines, Lyme's disease, or less likely a demyelinating disease or vasculitis. The patient remains stable on current medications Lyme serology negative No more seizures Neurology recommendations noted DVT proph: Lovenox Full code Dispo-medically stable for inpatient psychiatric facility. Admission and Anticipated Discharge Date Admission Date: September 14, 2022 Subjective Patient was seen and examined at bedside. He denies any new issues. Complains of some tremors. Eating well. No fever, chills, chest pain or shortness of breath or nausea or vomiting Review of Systems Review of Systems: All systems reviewed & are unremarkable except as noted in Subjective Physical Exam Physical Exam: General: Disheveled appearance, not in distress, on room air Chest: Clear breath sounds bilaterally, no wheezes or crackles CVS: Regular rate and rhythm, normal heart sounds, no murmur Abdomen: Soft, non tender, not distended, normal bowel sounds Neuro: Awake, alert, answering simple questions Extremities: No cyanosis, clubbing or edema. Tremors of extremities noted Psych: Calm, cooperative, currently 1:1 Results & Data Results & Data Vital Signs (Past 12 Hours) Vital Signs Temp Pulse Resp BP Pulse Ox O2 Del Method 09/29/22 11:33 36.3 C L 98 H 20 124/77 94 Room Air 09/29/22 09:26 36.9 C 100 H 20 129/84 93 Room Air 09/29/22 03:04 36.6 C 72 18 114/76 95 Room Air Medications Administered Current Inpatient Medications Acetaminophen (Acetaminophen 500 Mg Tab) 500 mg PO Q6H PRN PRN Reason: pain/fever Stop: 10/15/22 19:55 Last Admin: 09/28/22 01:19 Dose: 500 mg Benztropine Mesylate (Benztropine Mesylate 1 Mg Tab) 1 mg PO BID PRN PRN Reason: muscle stiffness Stop: 10/24/22 20:59 Clonazepam (Clonazepam 1 Mg Tab) 1 mg PO BID [facility] Stop: 10/24/22 20:59 Last Admin: 09/29/22 09:22 Dose: 1 mg Divalproex Sodium (Divalproex Extended Release 500 Mg Tab) 500 mg PO QAM [facility] Stop: 10/26/22 08:59 Last Admin: 09/29/22 09:20 Dose: 500 mg Divalproex Sodium (Divalproex Extended Release 500 Mg Tab) 1,000 mg PO HS [facility] Stop: 10/25/22 20:59 Last Admin: 09/28/22 20:02 Dose: 1,000 mg Enoxaparin Sodium (Enoxaparin Inj 30 Mg/0.3 Ml Syr) 30 mg SQ HS [facility] Stop: 10/25/22 20:59 Last Admin: 09/28/22 20:01 Dose: 30 mg Haloperidol (Haloperidol 5 Mg Tab) 5 mg PO BID PRN PRN Reason: Agitation/psychosis Stop: 10/24/22 10:19 Last Admin: 09/28/22 17:03 Dose: 5 mg Haloperidol (Haloperidol 5 Mg Tab) 5 mg PO BID [facility] Stop: 10/28/22 20:59 Last Admin: 09/29/22 09:20 Dose: 5 mg Ibuprofen (Ibuprofen 200 Mg Tab) 400 mg PO TID PRN PRN Reason: pain, headache Stop: 10/16/22 11:47 Last Admin: 09/27/22 08:16 Dose: 400 mg Lorazepam (Lorazepam 2 Mg/1 Ml Vial) 1 mg IV Q4H PRN PRN Reason: Anxiety/Agitation Stop: 10/24/22 19:47 Last Admin: 09/29/22 11:28 Dose: 1 mg Ondansetron HCl (Ondansetron Inj 2 Mg/Ml 2 Ml Vial) 4 mg IV Q6H PRN PRN Reason: Nausea And Vomiting Stop: 10/16/22 12:04 Last Admin: 09/21/22 09:00 Dose: 4 mg Oxcarbazepine (Oxcarbazepine 150 Mg Tablet) 750 mg PO BID [facility] Stop: 10/14/22 23:44 Last Admin: 09/29/22 09:20 Dose: 750 mg Propranolol HCl (Propranolol Hcl 10 Mg Tab) 10 mg PO BID [facility] Stop: 10/29/22 12:59 Last Admin: 09/29/22 13:23 Dose: 10 mg Tamsulosin HCl (Tamsulosin Hcl 0.4 Mg Cap) 0.4 mg PO HS [facility] Stop: 10/20/22 11:18 Last Admin: 09/28/22 20:02 Dose: 0.4 mg
[2022-09-29] MEDS: TAMSULOSIN HCL 0.4 MG CAP PO SCH (20:05)
[2022-09-29] MEDS: ENOXAPARIN INJ 30 MG/0.3 ML SYR SQ SCH (20:06)
[2022-09-30] MEDS: haloperidoL 5 MG TAB PO PRN ×2 (01:54→15:18)
[2022-09-30] MEDS: OXcarbazepine 150 MG TABLET PO SCH ×2 (08:54→21:32)
[2022-09-30] MEDS: haloperidoL 5 MG TAB PO SCH ×2 (08:54→21:32)
[2022-09-30] MEDS: DIVALPROEX EXTENDED RELEASE 500 MG TAB PO SCH ×2 (08:55→21:31)
[2022-09-30] MEDS: clonazePAM 1 MG TAB PO SCH ×2 (09:03→21:31)
[2022-09-30] MEDS: PROPRANOLOL HCL 10 MG TAB PO SCH ×2 (09:42→21:32)
--- NOTE | 2022-09-30 10:39 | Psychiatric Progress Note ---
Date of Service September 30, 2022 Impression / Recommendations Impression 47 y/o man with schizoaffective disorder, bipolar type who's been off his medication and who recently had seizures in the ED in the context of having been off his high-dose anticonvulsants and benzodiazepine and having been administered olanzapine. Has been improving since restarting his medications with no further seizures and remains medically stable. On 303 commitment awaiting inpatient psychiatric placement. 09/30/2022:Ongoing acute priscila and psychosis with clanging, loosened associations but sleeping better with higher dose of Depakote and haldol. Tremor could represent Depakote side effect though seems to have a somewhat volitional component. Could consider restarting clozapine, which he was previously stabilized on, though he may also benefit more from an antipsychotic option with an MURPHY, such as haldol decanoate, as he has a history of medication non- adherence. The patient remains hospitalized on a completed 303 involuntary commitment. This patient must remain on safety precautions with a 1-on-1 and is unable to leave the hospital AMA. 303 expires on 10/08/2022. (1) Schizoaffective disorder, bipolar type: Plan 09/30/2022: * Ongoing bed search. * Requires 1-on-1 due to 303 commitment, cannot leave AMA * Depakote ER 500mg qAM and 1000mg HS * Klonopin 1mg BID * Oxcarbazepine 750mg BID * Haldol 5mg BID po * Haldol 5mg BID prn po for psychosis/agitation * Propranolol 10mg BID po 09/29/2022: * Ongoing bed search. * Requires 1-on-1 due to 303 commitment, cannot leave AMA * Depakote ER 500mg qAM and 1000mg HS * Klonopin 1mg BID * Oxcarbazepine 750mg BID * Haldol 5mg BID po * Haldol 5mg BID prn po for psychosis/agitation * Propranolol 10mg BID po 09/28/2022: * Ongoing bed search. * Requires 1-on-1 due to 303 commitment, cannot leave AMA * Depakote ER 500mg qAM and 1000mg HS * Klonopin to 1mg BID * Oxcarbazepine 750mg BID * Schedule Haldol 5mg BID po * Haldol 5mg BID prn po for psychosis/agitation 09/27/2022: * Ongoing bed search. * Requires 1-on-1 due to 303 commitment, cannot leave AMA * Depakote ER 500mg qAM and 1000mg HS * Klonopin to 1mg BID * Oxcarbazepine 750mg BID * Haldol 5mg TID prn po for psychosis/agitation 09/26/2022: * Ongoing bed search. * Requires 1-on-1 due to 303 commitment, cannot leave AMA * Depakote ER 500mg qAM and 1000mg HS * Klonopin to 1mg BID * Oxcarbazepine 750mg BID * Haldol 5mg TID prn po for psychosis/agitation 09/25/2022: * Ongoing bed search. * Requires 1-on-1 due to 303 commitment, cannot leave AMA * Increase to Depakote ER 500mg qAM and Depakote ER 1000mg HS * Continue Klonopin to 1mg BID * Continue Oxcarbazepine 750mg BID * Haldol 5mg TID prn po for psychosis/agitation 09/24/2022: * Ongoing bed search. * Requires 1-on-1 due to 303 commitment, cannot leave AMA * Continue with Depakote ER 500mg BID, likely increase again in 2-3 days * Increase Klonopin to 1mg BID * Continue Oxcarbazepine 750mg BID * Haldol 5mg TID prn po for psychosis/agitation 09/23/2022: * Ongoing bed search. * Requires 1-on-1 due to 303 commitment, cannot leave AMA * Increase Depakote ER to 500mg BID * Continue Klonopin 1mg daily, Oxcarbazepine 750mg BID * Haldol 5mg BID prn po for psychosis/agitation 09/22/2022: Requires psychiatric admission. Bed search continues. Please do consider titrating divalproex. It would be appropriate to check trough levels of valproate and oxcarbazepine to assess whether they're in the therapeutic range. 09/21/2022: Requires psychiatric admission. Bed search is underway. 09/20/2022: Based on pt's presentation today, I can only recommend staying the current course in terms of psychiatric treatment. He will still require psychiatric admission once medically stable. 09/19/2022: By history, pt has required much higher divalproex ER dose (3,000 mg/day), along with oxcarbazepine, to suppress priscila and seizures. If he can't tolerate whole divalproex ER tablets, divalproex or valproic acid could be used with a target dose of 2,000 mg/day. In either case, dose should be titrated to a target blood level in the range of 85-125 g/mL. 09/18/2022: Pt is now subject to a section 303 involuntary commitment. He must remain in the hospital on 1:1 observation until he's determined to be medically stable. At that time, a psychiatric bed search will need to be undertaken. Consider more aggressive titration of divalproex. 09/17/2022: Continue current medication regimen. Pt will require a hearing to enable continuing hospitalization (because he certainly can't be discharged to home). 09/16/2022: Since pt clearly needs both antiepileptic and antimanic pharmacotherapy, it would seem eminently reasonable to resume the divalproex and oxcarbazepine he'd previously been taking. I agree with your decision not to resume the 3,000mg/day divalproex ER and 1,200 mg/day oxcarbazepine doses right away, but would suggest titrating as aggressively as tolerated. Note that divalproex ER is not equally bioavailable as IR divalproex. If it's necessary to crush tablets or use any dosage form other than ER, total dose may need to be 20-25% lower than with the ER form. With divalproex, the target antimanic range of blood level is 85-125 g/mL (higher than the typical therapeutic range for seizure control of 50-100 g/mL) and dose should be titrated based on blood level. For oxcarbazepine there is fairly scant published data about therapeutic blood level for priscila, but for carbamazepine it's fairly clear that the target range is the same as for seizure control, so oxcarbazepine dose should be titrated to usual antiepileptic blood level. Pt was on fairly high-dose (4 mg/day) clonazepam until some unknown time prior to admission, and it's possible that some of the waxing and waning cognition we're seeing could represent a degree of benzodiazepine withdrawal. It's also obviously antiepileptic and wouldn't require titration via blood level, so I recommend resuming 2 mg BID. If pt won't accept oral medication, clonazepam is essentially equipotent with lorazepam, though doses of the latter would need to be divided due to shorter half-life (e.g., 1 mg QID). If pt requires parenteral antipsychotic medication due to potentially dangerous behavior appearing to arise from psychosis, haloperidol would appear to be the safest option (administeredwithoutdiphenhydramine due to the reported intolerance). This could be given as haloperidol 5 mg IM and lorazepam 2 mg IM q8 hr PRN psychosis. An administrative decision has previously been made that pt is not a candidate for admission to the psychiatric unit at [facility]. He certainly will require psychiatric hospitalization. A bed search is underway, but if he is still here on Sunday he will need a commitment hearing if he is to remain in the hospital involuntarily any longer. With respect to his involuntary status, it is my opinion that at present Mr. Becker does not have the capacity to make rational and informed decisions about healthcare so, even if he were to agree to remain in the hospital, we would not be able to use such agreement as informed consent and will continue to need to rely on the legal mechanisms for involuntary admission. Suicide Risk Level Suicide Risk Level: Low (q15 min observation checks) (any risk is due to disorganized behavior rather than suicidality as he consistently denies SI, remains on due to being on medical floor and on 303 commitment) Risk Factors Assessment Male: Yes : Yes Do You Have Access To A Gun?: No Health Problems: Yes Mental Health Diagnoses: Yes Previous Psychiatric Hospitalization: Yes Protective Factors Assessment Responsible for Young Children: No Employed: No Stable Relationships: No Interval History Identifying Information ROGER BECKER is a 47-year-old male with a history of schizoaffective disorder, admitted on 09/14/2022 for seizures. Consult is by the hospitalist service for psychosis. Chief Complaint "I'm crawling". Review of Systems Notes intermittent sleep, eating well Subjective Subjective Patient was seen & assessed and interval progress reviewed. No behavioral events overnight. Taking his medication. Difficult to assess if he's noticed any benefit from the addition of propranolol. He continues to demonstrate intermittent tremors in his hands and feet-notably per -on- in the room no evidence of tremors while he is sleeping and then none present in his feet until I mentioned the absence and then the tremors resumed. Roger was crawling on his bed and made reference to paranoia about a group he abbreviated and stated we should be aware of. Asked about timeline of his tremors and past medications he tells me the tremors started "after I charcoaled myself out of [place]" expands when I ask for clarification that "my girlfriend thought a breakfast milkshake of lithium was a good idea". Attempted to discuss his prior experience with clozapine to which he began clanging about "Klonopin, clozaril, clozapine" and could not be redirected. Did agree to think about option of restarting clozapine. Physical Exam Psychiatric Orientation: alert and oriented to place Apperance: + disheveled Eye Contact: + fair eye contact Motor Behavior: + psychomotor agitation and + tremor (vs psychomotor agitation, moves hands and feet repetitively ) Speech: + pressured speech; + abnormal rate/rhythm/volume of speech (rapid) Affect: + labile affect Mood: + dysphoric mood Thought Process: + looseness of associations Thought Content: + paranoid, + delusions and + persecution Suicidal Thoughts: denies suicidal thoughts Homicidal Thoughts: denies homicidal thoughts Hallucinations: + auditory hallucinations (seems to be responding to possible internal stimuli) Insight: + severely impaired insight Judgment: + limited judgement Vital Signs (Past 24 Hours) Last Vital Signs Temp 37.2 C 09/30/22 06:54 Pulse 80 09/30/22 09:42 Resp 16 09/30/22 06:54 BP 128/73 09/30/22 09:42 Pulse Ox 96 09/30/22 06:54 O2 Del Method Room Air 09/30/22 06:54 O2 Flow Rate 2 09/15/22 21:48 FiO2 30 09/14/22 22:35 Results & Data ([facility]) Current Inpatient Medications Current Inpatient Medications: Current Inpatient Medications Acetaminophen (Acetaminophen 500 Mg Tab) 500 mg PO Q6H PRN PRN Reason: pain/fever Stop: 10/15/22 19:55 Last Admin: 09/28/22 01:19 Dose: 500 mg Benztropine Mesylate (Benztropine Mesylate 1 Mg Tab) 1 mg PO BID PRN PRN Reason: muscle stiffness Stop: 10/24/22 20:59 Clonazepam (Clonazepam 1 Mg Tab) 1 mg PO BID [facility] Stop: 10/24/22 20:59 Last Admin: 09/30/22 09:03 Dose: 1 mg Divalproex Sodium (Divalproex Extended Release 500 Mg Tab) 500 mg PO QAM [facility] Stop: 10/26/22 08:59 Last Admin: 09/30/22 08:55 Dose: 500 mg Divalproex Sodium (Divalproex Extended Release 500 Mg Tab) 1,000 mg PO HS [facility] Stop: 10/25/22 20:59 Last Admin: 09/29/22 20:09 Dose: 1,000 mg Enoxaparin Sodium (Enoxaparin Inj 30 Mg/0.3 Ml Syr) 30 mg SQ HS [facility] Stop: 10/25/22 20:59 Last Admin: 09/29/22 20:06 Dose: 30 mg Haloperidol (Haloperidol 5 Mg Tab) 5 mg PO BID PRN PRN Reason: Agitation/psychosis Stop: 10/24/22 10:19 Last Admin: 09/30/22 01:54 Dose: 5 mg Haloperidol (Haloperidol 5 Mg Tab) 5 mg PO BID [facility] Stop: 10/28/22 20:59 Last Admin: 09/30/22 08:54 Dose: 5 mg Ibuprofen (Ibuprofen 200 Mg Tab) 400 mg PO TID PRN PRN Reason: pain, headache Stop: 10/16/22 11:47 Last Admin: 09/27/22 08:16 Dose: 400 mg Lorazepam (Lorazepam 2 Mg/1 Ml Vial) 1 mg IV Q4H PRN PRN Reason: Anxiety/Agitation Stop: 10/24/22 19:47 Last Admin: 09/29/22 20:41 Dose: 1 mg Ondansetron HCl (Ondansetron Inj 2 Mg/Ml 2 Ml Vial) 4 mg IV Q6H PRN PRN Reason: Nausea And Vomiting Stop: 10/16/22 12:04 Last Admin: 09/21/22 09:00 Dose: 4 mg Oxcarbazepine (Oxcarbazepine 150 Mg Tablet) 750 mg PO BID [facility] Stop: 10/14/22 23:44 Last Admin: 09/30/22 08:54 Dose: 750 mg Propranolol HCl (Propranolol Hcl 10 Mg Tab) 10 mg PO BID [facility] Stop: 10/29/22 12:59 Last Admin: 09/30/22 09:42 Dose: 10 mg Tamsulosin HCl (Tamsulosin Hcl 0.4 Mg Cap) 0.4 mg PO HS [facility] Stop: 10/20/22 11:18 Last Admin: 09/29/22 20:05 Dose: 0.4 mg Mental Health & Subst Abuse Tx Therapist Name of Therapist: Mat Ch @ [facility] Clear (?) Paid Search Analyst Name of Paid Search Analyst: Joann [facility] Post Discharge Appointments Primary Care Physician Name Of Family Doctor/PCP: Lico De Jesus
--- NOTE | 2022-09-30 13:07 | Hospitalist Progress Note ---
Date of Service September 30, 2022 Assessment & Plan (1) Schizoaffective disorder: (2) Seizure: Plan Schizoaffective disorder/personality disorder/mood disorder, suboptimal following recent confinement of [facility] Appreciate psychiatry input and recommendation-on Depakote and oxcarbazepine for mood stabilization. Also on Klonopin, Haldol Per psychiatry, 303 hearing was held on 09/18 for involuntary admission which was granted. Patient is still requiring one-to-one sitter Medically stable for discharge Awaiting inpatient psychiatric placement. Seizure after Zyprexa in the ED- had 3 seizures which were attributed to high- dose Zyprexa administration S/p intubation for airway protection but he self extubated 09/14/22 and has been stable since Currently on Depakote and oxcarbazepine, also for his psychiatric issues also on Klonopin 1 mg twice daily EEG: Potentially abnormal awake/drowsy EEG with evidence of left parietal slowing and sharps. No evidence of persistent seizure activity. MRI brain: 1. No acute infarct or intracranial hemorrhage. 2. The temporal lobes are symmetric. 3. A few punctate foci of T2 hyperintensity seen within the periventricular and subcortical white matter of the supratentorial brain. These are nonspecific but greater than expected for age. Therefore, this could represent early microvascular ischemic change, migraines, Lyme's disease, or less likely a demyelinating disease or vasculitis. The patient remains stable on current medications Lyme serology negative No more seizures Neurology recommendations noted Generalized tremors-started on propranolol per psychiatry DVT proph: Lovenox Dispo-medically stable for inpatient psychiatric facility- ongoing bed search. Patient remains hospitalized on completed 303 involuntary commitment and cannot leave the hospital AMA. Admission and Anticipated Discharge Date Admission Date: September 14, 2022 Subjective Patient was seen and examined at bedside. Still with generalized tremors which stopped briefly during examination. No new issues. No fever, chills, chest pain, shortness of breath nausea or vomiting. Physical Exam Physical Exam: General: Disheveled appearance, not in distress, on room air Chest: Clear breath sounds bilaterally, no wheezes or crackles CVS: Regular rate and rhythm, normal heart sounds, no murmur Abdomen: Soft, non tender, not distended, normal bowel sounds Neuro: Awake, alert, answering simple questions Extremities: No cyanosis, clubbing or edema. Generalized tremors Psych: Calm, cooperative, currently 1:1 Results & Data Results & Data Vital Signs (Past 12 Hours) Vital Signs Temp Pulse Pulse Resp BP BP Pulse Ox 09/30/22 09:42 80 128/73 09/30/22 06:54 37.2 C 78 16 120/75 96 09/30/22 03:23 36.6 C 68 18 120/80 96 O2 Del Method 09/30/22 09:42 09/30/22 06:54 Room Air 09/30/22 03:23 Room Air Medications Administered Current Inpatient Medications Acetaminophen (Acetaminophen 500 Mg Tab) 500 mg PO Q6H PRN PRN Reason: pain/fever Stop: 10/15/22 19:55 Last Admin: 09/28/22 01:19 Dose: 500 mg Benztropine Mesylate (Benztropine Mesylate 1 Mg Tab) 1 mg PO BID PRN PRN Reason: muscle stiffness Stop: 10/24/22 20:59 Clonazepam (Clonazepam 1 Mg Tab) 1 mg PO BID [facility] Stop: 10/24/22 20:59 Last Admin: 09/30/22 09:03 Dose: 1 mg Divalproex Sodium (Divalproex Extended Release 500 Mg Tab) 500 mg PO QAM [facility] Stop: 10/26/22 08:59 Last Admin: 09/30/22 08:55 Dose: 500 mg Divalproex Sodium (Divalproex Extended Release 500 Mg Tab) 1,000 mg PO HS [facility] Stop: 10/25/22 20:59 Last Admin: 09/29/22 20:09 Dose: 1,000 mg Enoxaparin Sodium (Enoxaparin Inj 30 Mg/0.3 Ml Syr) 30 mg SQ HS [facility] Stop: 10/25/22 20:59 Last Admin: 09/29/22 20:06 Dose: 30 mg Haloperidol (Haloperidol 5 Mg Tab) 5 mg PO BID PRN PRN Reason: Agitation/psychosis Stop: 10/24/22 10:19 Last Admin: 09/30/22 01:54 Dose: 5 mg Haloperidol (Haloperidol 5 Mg Tab) 5 mg PO BID [facility] Stop: 10/28/22 20:59 Last Admin: 09/30/22 08:54 Dose: 5 mg Ibuprofen (Ibuprofen 200 Mg Tab) 400 mg PO TID PRN PRN Reason: pain, headache Stop: 10/16/22 11:47 Last Admin: 09/27/22 08:16 Dose: 400 mg Lorazepam (Lorazepam 2 Mg/1 Ml Vial) 1 mg IV Q4H PRN PRN Reason: Anxiety/Agitation Stop: 10/24/22 19:47 Last Admin: 09/29/22 20:41 Dose: 1 mg Ondansetron HCl (Ondansetron Inj 2 Mg/Ml 2 Ml Vial) 4 mg IV Q6H PRN PRN Reason: Nausea And Vomiting Stop: 10/16/22 12:04 Last Admin: 09/21/22 09:00 Dose: 4 mg Oxcarbazepine (Oxcarbazepine 150 Mg Tablet) 750 mg PO BID [facility] Stop: 10/14/22 23:44 Last Admin: 09/30/22 08:54 Dose: 750 mg Propranolol HCl (Propranolol Hcl 10 Mg Tab) 10 mg PO BID [facility] Stop: 10/29/22 12:59 Last Admin: 09/30/22 09:42 Dose: 10 mg Tamsulosin HCl (Tamsulosin Hcl 0.4 Mg Cap) 0.4 mg PO HS [facility] Stop: 10/20/22 11:18 Last Admin: 09/29/22 20:05 Dose: 0.4 mg
[2022-09-30] MEDS: LORazepam 2 MG/1 ML VIAL IV PRN (16:27)
[2022-09-30] MEDS: ENOXAPARIN INJ 40 MG/0.4 ML SYR SQ SCH (21:31)
[2022-09-30] MEDS: TAMSULOSIN HCL 0.4 MG CAP PO SCH (21:32)
[2022-10-01] MEDS: LORazepam 2 MG/1 ML VIAL IV PRN ×2 (02:54→16:56)
[2022-10-01] MEDS: OXcarbazepine 150 MG TABLET PO SCH ×2 (08:52→20:38)
[2022-10-01] MEDS: PROPRANOLOL HCL 10 MG TAB PO SCH ×2 (08:52→20:39)
[2022-10-01] MEDS: DIVALPROEX EXTENDED RELEASE 500 MG TAB PO SCH ×2 (08:52→20:35)
[2022-10-01] MEDS: clonazePAM 1 MG TAB PO SCH ×2 (08:52→20:35)
[2022-10-01] MEDS: haloperidoL 5 MG TAB PO SCH ×2 (08:52→20:37)
--- NOTE | 2022-10-01 11:42 | Psychiatric Progress Note ---
Date of Service October 01, 2022 Impression / Recommendations Impression 47 y/o man with schizoaffective disorder, bipolar type who's been off his medication and who recently had seizures in the ED in the context of having been off his high-dose anticonvulsants and benzodiazepine and having been administered olanzapine. Has been improving since restarting his medications with no further seizures and remains medically stable. On 303 commitment awaiting inpatient psychiatric placement. Bilateral hand and foot tremor could represent Depakote side effect though seems to have a somewhat volitional component vs tardive dyskinesia (has been present since at least his most recent hospitalization at the [facility]). Could consider restarting clozapine, which he was previously stabilized on, though he may also benefit more from an antipsychotic option with an MURPHY, such as haldol decanoate, as he has a history of medication non-adherence. 10/01/2022:Ongoing acute priscila and psychosis with clanging, loosened associations but sleeping better with higher dose of Depakote and haldol. He consents to increasing haldol to 5mg qAM and 10mg HS. The patient remains hospitalized on a completed 303 involuntary commitment. This patient must remain on safety precautions with a 1-on-1 and is unable to leave the hospital AMA. 303 expires on 10/08/2022. (1) Schizoaffective disorder, bipolar type: Plan 10/01/2022: * Ongoing bed search. * Requires 1-on-1 due to 303 commitment, cannot leave AMA * Depakote ER 500mg qAM and 1000mg HS * Klonopin 1mg BID * Oxcarbazepine 750mg BID * Increase Haldol to 5mg qAM and 10mg HS * Haldol 5mg BID prn po for psychosis/agitation * Propranolol 10mg BID po 09/30/2022: * Ongoing bed search. * Requires 1-on-1 due to 303 commitment, cannot leave AMA * Depakote ER 500mg qAM and 1000mg HS * Klonopin 1mg BID * Oxcarbazepine 750mg BID * Haldol 5mg BID po * Haldol 5mg BID prn po for psychosis/agitation * Propranolol 10mg BID po 09/29/2022: * Ongoing bed search. * Requires 1-on-1 due to 303 commitment, cannot leave AMA * Depakote ER 500mg qAM and 1000mg HS * Klonopin 1mg BID * Oxcarbazepine 750mg BID * Haldol 5mg BID po * Haldol 5mg BID prn po for psychosis/agitation * Propranolol 10mg BID po 09/28/2022: * Ongoing bed search. * Requires 1-on-1 due to 303 commitment, cannot leave AMA * Depakote ER 500mg qAM and 1000mg HS * Klonopin to 1mg BID * Oxcarbazepine 750mg BID * Schedule Haldol 5mg BID po * Haldol 5mg BID prn po for psychosis/agitation 09/27/2022: * Ongoing bed search. * Requires 1-on-1 due to 303 commitment, cannot leave AMA * Depakote ER 500mg qAM and 1000mg HS * Klonopin to 1mg BID * Oxcarbazepine 750mg BID * Haldol 5mg TID prn po for psychosis/agitation 09/26/2022: * Ongoing bed search. * Requires 1-on-1 due to 303 commitment, cannot leave AMA * Depakote ER 500mg qAM and 1000mg HS * Klonopin to 1mg BID * Oxcarbazepine 750mg BID * Haldol 5mg TID prn po for psychosis/agitation 09/25/2022: * Ongoing bed search. * Requires 1-on-1 due to 303 commitment, cannot leave AMA * Increase to Depakote ER 500mg qAM and Depakote ER 1000mg HS * Continue Klonopin to 1mg BID * Continue Oxcarbazepine 750mg BID * Haldol 5mg TID prn po for psychosis/agitation 09/24/2022: * Ongoing bed search. * Requires 1-on-1 due to 303 commitment, cannot leave AMA * Continue with Depakote ER 500mg BID, likely increase again in 2-3 days * Increase Klonopin to 1mg BID * Continue Oxcarbazepine 750mg BID * Haldol 5mg TID prn po for psychosis/agitation 09/23/2022: * Ongoing bed search. * Requires 1-on-1 due to 303 commitment, cannot leave AMA * Increase Depakote ER to 500mg BID * Continue Klonopin 1mg daily, Oxcarbazepine 750mg BID * Haldol 5mg BID prn po for psychosis/agitation 09/22/2022: Requires psychiatric admission. Bed search continues. Please do consider titrating divalproex. It would be appropriate to check trough levels of valproate and oxcarbazepine to assess whether they're in the therapeutic range. 09/21/2022: Requires psychiatric admission. Bed search is underway. 09/20/2022: Based on pt's presentation today, I can only recommend staying the current course in terms of psychiatric treatment. He will still require psychiatric admission once medically stable. 09/19/2022: By history, pt has required much higher divalproex ER dose (3,000 mg/day), along with oxcarbazepine, to suppress priscila and seizures. If he can't tolerate whole divalproex ER tablets, divalproex or valproic acid could be used with a target dose of 2,000 mg/day. In either case, dose should be titrated to a target blood level in the range of 85-125 g/mL. 09/18/2022: Pt is now subject to a section 303 involuntary commitment. He must remain in the hospital on 1:1 observation until he's determined to be medically stable. At that time, a psychiatric bed search will need to be undertaken. Consider more aggressive titration of divalproex. 09/17/2022: Continue current medication regimen. Pt will require a hearing to enable continuing hospitalization (because he certainly can't be discharged to home). 09/16/2022: Since pt clearly needs both antiepileptic and antimanic pharmacotherapy, it would seem eminently reasonable to resume the divalproex and oxcarbazepine he'd previously been taking. I agree with your decision not to resume the 3,000mg/day divalproex ER and 1,200 mg/day oxcarbazepine doses right away, but would suggest titrating as aggressively as tolerated. Note that divalproex ER is not equally bioavailable as IR divalproex. If it's necessary to crush tablets or use any dosage form other than ER, total dose may need to be 20-25% lower than with the ER form. With divalproex, the target antimanic range of blood level is 85-125 g/mL (higher than the typical therapeutic range for seizure control of 50-100 g/mL) and dose should be titrated based on blood level. For oxcarbazepine there is fairly scant published data about therapeutic blood level for priscila, but for carbamazepine it's fairly clear that the target range is the same as for seizure control, so oxcarbazepine dose should be titrated to usual antiepileptic blood level. Pt was on fairly high-dose (4 mg/day) clonazepam until some unknown time prior to admission, and it's possible that some of the waxing and waning cognition we're seeing could represent a degree of benzodiazepine withdrawal. It's also obviously antiepileptic and wouldn't require titration via blood level, so I recommend resuming 2 mg BID. If pt won't accept oral medication, clonazepam is essentially equipotent with lorazepam, though doses of the latter would need to be divided due to shorter half-life (e.g., 1 mg QID). If pt requires parenteral antipsychotic medication due to potentially dangerous behavior appearing to arise from psychosis, haloperidol would appear to be the safest option (administeredwithoutdiphenhydramine due to the reported intolerance). This could be given as haloperidol 5 mg IM and lorazepam 2 mg IM q8 hr PRN psychosis. An administrative decision has previously been made that pt is not a candidate for admission to the psychiatric unit at [facility]. He certainly will require psychiatric hospitalization. A bed search is underway, but if he is still here on Sunday he will need a commitment hearing if he is to remain in the hospital involuntarily any longer. With respect to his involuntary status, it is my opinion that at present Mr. Becker does not have the capacity to make rational and informed decisions about healthcare so, even if he were to agree to remain in the hospital, we would not be able to use such agreement as informed consent and will continue to need to rely on the legal mechanisms for involuntary admission. Suicide Risk Level Suicide Risk Level: Low (q15 min observation checks) (any risk is due to disorganized behavior rather than suicidality as he consistently denies SI, remains on 1-on-1 due to being on medical floor and on 303 commitment) Risk Factors Assessment Male: Yes : Yes Do You Have Access To A Gun?: No Health Problems: Yes Mental Health Diagnoses: Yes Previous Psychiatric Hospitalization: Yes Protective Factors Assessment Responsible for Young Children: No Employed: No Stable Relationships: No Interval History Identifying Information ROGER BECKER is a 47-year-old male with a history of schizoaffective disorder, admitted on 09/14/2022 for seizures. Consult is by the hospitalist service for psychosis. Chief Complaint "The Quebecois language". Review of Systems Notes slept about 6 hours last night per reports, eating well Subjective Subjective Patient was seen & assessed and interval progress reviewed with treatment team nursing and social work. Roger was observed by his 1-on-1 gagging himself over the toilet yesterday and then hit his head into the window before calming down and lying in bed. Today cannot tell why he attempted to throw up rather speaks about Moe and the "Quebecois language". Asked about hitting his head on the window tells me this was because he was trying to look out and think about the skate park below the roof (which does not exist). He's unsure if his tremors have changed but again noticeable that he seems able to stop the tremors in his feet, hand tremors persist. He is agreeable to increasing the dose of haldol. Continues to take all his medication. Physical Exam Psychiatric Orientation: alert and oriented to place Apperance: + disheveled Eye Contact: + fair eye contact Motor Behavior: + psychomotor agitation and + tremor (tremor vs TD vs psychom agitation, moves hands and feet repetitively ) Speech: + pressured speech; + abnormal rate/rhythm/volume of speech (rapid) Affect: + labile affect Mood: + dysphoric mood Thought Process: + looseness of associations Thought Content: + paranoid, + delusions and + persecution Suicidal Thoughts: denies suicidal thoughts Homicidal Thoughts: denies homicidal thoughts Hallucinations: + auditory hallucinations (seems to be responding to possible internal stimuli) Insight: + severely impaired insight Judgment: + limited judgement Vital Signs (Past 24 Hours) Last Vital Signs Temp 37.2 C 10/01/22 07:06 Pulse 76 10/01/22 07:06 Resp 16 10/01/22 07:06 BP 122/78 10/01/22 07:06 Pulse Ox 96 10/01/22 07:06 O2 Del Method Room Air 10/01/22 07:06 O2 Flow Rate 2 09/15/22 21:48 FiO2 30 09/14/22 22:35 Results & Data ([facility]) Current Inpatient Medications Current Inpatient Medications: Current Inpatient Medications Acetaminophen (Acetaminophen 500 Mg Tab) 500 mg PO Q6H PRN PRN Reason: pain/fever Stop: 10/15/22 19:55 Last Admin: 09/28/22 01:19 Dose: 500 mg Benztropine Mesylate (Benztropine Mesylate 1 Mg Tab) 1 mg PO BID PRN PRN Reason: muscle stiffness Stop: 10/24/22 20:59 Clonazepam (Clonazepam 1 Mg Tab) 1 mg PO BID [facility] Stop: 10/24/22 20:59 Last Admin: 10/01/22 08:52 Dose: 1 mg Divalproex Sodium (Divalproex Extended Release 500 Mg Tab) 500 mg PO QAM [facility] Stop: 10/26/22 08:59 Last Admin: 10/01/22 08:52 Dose: 500 mg Divalproex Sodium (Divalproex Extended Release 500 Mg Tab) 1,000 mg PO HS [facility] Stop: 10/25/22 20:59 Last Admin: 09/30/22 21:31 Dose: 1,000 mg Enoxaparin Sodium (Enoxaparin Inj 40 Mg/0.4 Ml Syr) 40 mg SQ HS [facility] Stop: 10/30/22 20:59 Last Admin: 09/30/22 21:31 Dose: 40 mg Haloperidol (Haloperidol 5 Mg Tab) 5 mg PO BID PRN PRN Reason: Agitation/psychosis Stop: 10/24/22 10:19 Last Admin: 09/30/22 15:18 Dose: 5 mg Haloperidol (Haloperidol 5 Mg Tab) 5 mg PO BID [facility] Stop: 10/28/22 20:59 Last Admin: 10/01/22 08:52 Dose: 5 mg Ibuprofen (Ibuprofen 200 Mg Tab) 400 mg PO TID PRN PRN Reason: pain, headache Stop: 10/16/22 11:47 Last Admin: 09/27/22 08:16 Dose: 400 mg Lorazepam (Lorazepam 2 Mg/1 Ml Vial) 1 mg IV Q4H PRN PRN Reason: Anxiety/Agitation Stop: 10/24/22 19:47 Last Admin: 10/01/22 02:54 Dose: 1 mg Ondansetron HCl (Ondansetron Inj 2 Mg/Ml 2 Ml Vial) 4 mg IV Q6H PRN PRN Reason: Nausea And Vomiting Stop: 10/16/22 12:04 Last Admin: 09/21/22 09:00 Dose: 4 mg Oxcarbazepine (Oxcarbazepine 150 Mg Tablet) 750 mg PO BID [facility] Stop: 10/14/22 23:44 Last Admin: 10/01/22 08:52 Dose: 750 mg Propranolol HCl (Propranolol Hcl 10 Mg Tab) 10 mg PO BID [facility] Stop: 10/29/22 12:59 Last Admin: 10/01/22 08:52 Dose: 10 mg Tamsulosin HCl (Tamsulosin Hcl 0.4 Mg Cap) 0.4 mg PO HS [facility] Stop: 10/20/22 11:18 Last Admin: 09/30/22 21:32 Dose: 0.4 mg Mental Health & Subst Abuse Tx Therapist Name of Therapist: Mat Ch @ [facility] Clear (?) Academic Interventionist Name of Academic Interventionist: Joann santiago [facility] Post Discharge Appointments Primary Care Physician Name Of Family Doctor/PCP: Lico De Jesus
--- NOTE | 2022-10-01 16:21 | Hospitalist Progress Note ---
Date of Service October 01, 2022 Assessment & Plan (1) Schizoaffective disorder: Plan: Schizoaffective disorder/personality disorder/mood disorder, suboptimal following recent confinement of [facility] Appreciate psychiatry input and recommendation-on Depakote and oxcarbazepine for mood stabilization. Also on Klonopin, Haldol Per psychiatry, 303 hearing was held on 09/18 for involuntary admission which was granted. Patient is still requiring one-to-one sitter Medically stable for discharge Awaiting inpatient psychiatric placement. No new symptoms and the patient remains medically stable to be discharged (2) Seizure: Plan: Seizure after Zyprexa in the ED- had 3 seizures which were attributed to high- dose Zyprexa administration S/p intubation for airway protection but he self extubated 09/14/22 and has been stable since Currently on Depakote(ER 500mg in AM and 1000mg in PM) and oxcarbazepine (750mg BID), also for his psychiatric issues also on Klonopin 1 mg twice daily EEG: Potentially abnormal awake/drowsy EEG with evidence of left parietal slowing and sharps. No evidence of persistent seizure activity. Generalized tremors are likely not due to seizure Lyme serology negative No more seizures Neurology recommendations noted Seizure seems to be controlled with current medications Remains stable otherwise Imaging studies: MRI brain: 1. No acute infarct or intracranial hemorrhage. 2. The temporal lobes are symmetric. 3. A few punctate foci of T2 hyperintensity seen within the periventricular and subcortical white matter of the supratentorial brain. These are nonspecific but greater than expected for age. Therefore, this could represent early microvascular ischemic change, migraines, Lyme's disease, or less likely a demyelinating disease or vasculitis. Generalized tremors-started on propranolol per psychiatry Has been getting propranolol 10 mg twice daily Plan DVT proph: Lovenox Dispo-medically stable for inpatient psychiatric facility- ongoing bed search. Patient remains hospitalized on completed 303 involuntary commitment and cannot leave the hospital AMA. Admission and Anticipated Discharge Date Admission Date: September 14, 2022 Subjective 10/01/2022 The patient was seen and examined in medical floor He still requires one-to-one sitter but otherwise stable Has tremors when he is conversing or doing something which does not look like seizures Awaiting placement Review of Systems Review of Systems: All systems reviewed and are unremarkable except as noted below Neurologic: Tremors involving the whole of the body Physical Exam Physical Exam: Lying in bed comfortably Constitutional: average body habitus; not ill appearing Eyes: PERRL, conjunctivae normal, anicteric sclerae ENMT: external ear and nose normal, oropharynx normal Neck: trachea midline, no thyromegaly Respiratory: no respiratory distress Auscultation: lungs clear to auscultation bilaterally Cardiovascular: Rate/Rhythm: regular rate and regular rhythm; not tachycardic Extremities: no edema Gastrointestinal (Abdomen): Inspection/Auscultation: normal bowel sounds; abdomen not distended Percussion/Palpation: abdomen soft; abdomen nontender Musculoskeletal: No acute arthritis involving any of the joint Neurologic: normal touch/pain/proprioception, moves all extremities and + focal motor deficit Has tremors involving the extremities especially when he is conversing and m oving Lymphatic: no cervical or axillary lymphadenopathy Results & Data Results & Data Vital Signs (Past 12 Hours) Vital Signs Temp Pulse Pulse Resp BP Pulse Ox O2 Del Method 10/01/22 14:56 36.6 C 87 18 131/78 97 Room Air 10/01/22 07:06 37.2 C 76 16 122/78 96 Room Air Medications Administered Current Inpatient Medications Acetaminophen (Acetaminophen 500 Mg Tab) 500 mg PO Q6H PRN PRN Reason: pain/fever Stop: 10/15/22 19:55 Last Admin: 09/28/22 01:19 Dose: 500 mg Benztropine Mesylate (Benztropine Mesylate 1 Mg Tab) 1 mg PO BID PRN PRN Reason: muscle stiffness Stop: 10/24/22 20:59 Clonazepam (Clonazepam 1 Mg Tab) 1 mg PO BID [facility] Stop: 10/24/22 20:59 Last Admin: 10/01/22 08:52 Dose: 1 mg Divalproex Sodium (Divalproex Extended Release 500 Mg Tab) 500 mg PO QAM [facility] Stop: 10/26/22 08:59 Last Admin: 10/01/22 08:52 Dose: 500 mg Divalproex Sodium (Divalproex Extended Release 500 Mg Tab) 1,000 mg PO HS [facility] Stop: 10/25/22 20:59 Last Admin: 09/30/22 21:31 Dose: 1,000 mg Enoxaparin Sodium (Enoxaparin Inj 40 Mg/0.4 Ml Syr) 40 mg SQ HS [facility] Stop: 10/30/22 20:59 Last Admin: 09/30/22 21:31 Dose: 40 mg Haloperidol (Haloperidol 5 Mg Tab) 5 mg PO BID PRN PRN Reason: Agitation/psychosis Stop: 10/24/22 10:19 Last Admin: 09/30/22 15:18 Dose: 5 mg Haloperidol (Haloperidol 5 Mg Tab) 5 mg PO QAM [facility] Stop: 11/01/22 08:59 Haloperidol (Haloperidol 5 Mg Tab) 10 mg PO HS [facility] Stop: 10/31/22 20:59 Ibuprofen (Ibuprofen 200 Mg Tab) 400 mg PO TID PRN PRN Reason: pain, headache Stop: 10/16/22 11:47 Last Admin: 09/27/22 08:16 Dose: 400 mg Lorazepam (Lorazepam 2 Mg/1 Ml Vial) 1 mg IV Q4H PRN PRN Reason: Anxiety/Agitation Stop: 10/24/22 19:47 Last Admin: 10/01/22 02:54 Dose: 1 mg Ondansetron HCl (Ondansetron Inj 2 Mg/Ml 2 Ml Vial) 4 mg IV Q6H PRN PRN Reason: Nausea And Vomiting Stop: 10/16/22 12:04 Last Admin: 09/21/22 09:00 Dose: 4 mg Oxcarbazepine (Oxcarbazepine 150 Mg Tablet) 750 mg PO BID [facility] Stop: 10/14/22 23:44 Last Admin: 10/01/22 08:52 Dose: 750 mg Propranolol HCl (Propranolol Hcl 10 Mg Tab) 10 mg PO BID [facility] Stop: 10/29/22 12:59 Last Admin: 10/01/22 08:52 Dose: 10 mg Tamsulosin HCl (Tamsulosin Hcl 0.4 Mg Cap) 0.4 mg PO HS [facility] Stop: 10/20/22 11:18 Last Admin: 09/30/22 21:32 Dose: 0.4 mg
[2022-10-01] MEDS: haloperidoL 5 MG TAB PO PRN (17:53)
[2022-10-01] MEDS: ENOXAPARIN INJ 40 MG/0.4 ML SYR SQ SCH (20:37)
[2022-10-01] MEDS: TAMSULOSIN HCL 0.4 MG CAP PO SCH (20:39)
[2022-10-02] MEDS ORDERED: LORazepam 2 MG/1 ML VIAL IM STA (05:28)
[2022-10-02] MEDS: haloperidoL 5 MG TAB PO SCH ×2 (08:24→20:01)
[2022-10-02] MEDS: OXcarbazepine 150 MG TABLET PO SCH ×2 (08:26→20:02)
[2022-10-02] MEDS: PROPRANOLOL HCL 10 MG TAB PO SCH ×2 (08:27→20:01)
[2022-10-02] MEDS: DIVALPROEX EXTENDED RELEASE 500 MG TAB PO SCH ×2 (08:28→20:03)
[2022-10-02] MEDS: clonazePAM 1 MG TAB PO SCH ×2 (08:30→20:01)
--- NOTE | 2022-10-02 12:21 | Psychiatric Progress Note ---
Date of Service October 02, 2022 Impression / Recommendations Impression 47 y/o man with schizoaffective disorder, bipolar type who's been off his medication and who recently had seizures in the ED in the context of having been off his high-dose anticonvulsants and benzodiazepine and having been administered olanzapine. Has been improving since restarting his medications with no further seizures and remains medically stable. On 303 commitment awaiting inpatient psychiatric placement. Bilateral hand and foot tremor could represent Depakote side effect though seems to have a somewhat volitional component vs tardive dyskinesia (has been present since at least his most recent hospitalization at the [facility]). Could consider restarting clozapine, which he was previously stabilized on, though he may also benefit more from an antipsychotic option with an MURPHY, such as haldol decanoate, as he has a history of medication non-adherence. 10/02/2022:Ongoing acute priscila and psychosis with clanging, loosened associations but sleeping better with higher dose of Depakote and higher dose of haldol. Tolerating higher dose of haldol. Review of chart notable for long history of tremor, seems more related to psychomotor activation. The patient remains hospitalized on a completed 303 involuntary commitment. This patient must remain on safety precautions with a 1-on-1 and is unable to leave the hospital AMA. 303 expires on 10/08/2022. (1) Schizoaffective disorder, bipolar type: Plan 10/02/2022: * Ongoing bed search. * Requires 1-on-1 due to 303 commitment, cannot leave AMA * Depakote ER 500mg qAM and 1000mg HS * Klonopin 1mg BID * Oxcarbazepine 750mg BID * Haldol to 5mg qAM and 10mg HS * Haldol 5mg BID prn po for psychosis/agitation * Propranolol 10mg BID po 10/01/2022: * Ongoing bed search. * Requires 1-on-1 due to 303 commitment, cannot leave AMA * Depakote ER 500mg qAM and 1000mg HS * Klonopin 1mg BID * Oxcarbazepine 750mg BID * Increase Haldol to 5mg qAM and 10mg HS * Haldol 5mg BID prn po for psychosis/agitation * Propranolol 10mg BID po 09/30/2022: * Ongoing bed search. * Requires 1-on-1 due to 303 commitment, cannot leave AMA * Depakote ER 500mg qAM and 1000mg HS * Klonopin 1mg BID * Oxcarbazepine 750mg BID * Haldol 5mg BID po * Haldol 5mg BID prn po for psychosis/agitation * Propranolol 10mg BID po 09/29/2022: * Ongoing bed search. * Requires 1-on-1 due to 303 commitment, cannot leave AMA * Depakote ER 500mg qAM and 1000mg HS * Klonopin 1mg BID * Oxcarbazepine 750mg BID * Haldol 5mg BID po * Haldol 5mg BID prn po for psychosis/agitation * Propranolol 10mg BID po 09/28/2022: * Ongoing bed search. * Requires 1-on-1 due to 303 commitment, cannot leave AMA * Depakote ER 500mg qAM and 1000mg HS * Klonopin to 1mg BID * Oxcarbazepine 750mg BID * Schedule Haldol 5mg BID po * Haldol 5mg BID prn po for psychosis/agitation 09/27/2022: * Ongoing bed search. * Requires 1-on-1 due to 303 commitment, cannot leave AMA * Depakote ER 500mg qAM and 1000mg HS * Klonopin to 1mg BID * Oxcarbazepine 750mg BID * Haldol 5mg TID prn po for psychosis/agitation 09/26/2022: * Ongoing bed search. * Requires 1-on-1 due to 303 commitment, cannot leave AMA * Depakote ER 500mg qAM and 1000mg HS * Klonopin to 1mg BID * Oxcarbazepine 750mg BID * Haldol 5mg TID prn po for psychosis/agitation 09/25/2022: * Ongoing bed search. * Requires 1-on-1 due to 303 commitment, cannot leave AMA * Increase to Depakote ER 500mg qAM and Depakote ER 1000mg HS * Continue Klonopin to 1mg BID * Continue Oxcarbazepine 750mg BID * Haldol 5mg TID prn po for psychosis/agitation 09/24/2022: * Ongoing bed search. * Requires 1-on-1 due to 303 commitment, cannot leave AMA * Continue with Depakote ER 500mg BID, likely increase again in 2-3 days * Increase Klonopin to 1mg BID * Continue Oxcarbazepine 750mg BID * Haldol 5mg TID prn po for psychosis/agitation 09/23/2022: * Ongoing bed search. * Requires 1-on-1 due to 303 commitment, cannot leave AMA * Increase Depakote ER to 500mg BID * Continue Klonopin 1mg daily, Oxcarbazepine 750mg BID * Haldol 5mg BID prn po for psychosis/agitation 09/22/2022: Requires psychiatric admission. Bed search continues. Please do consider titrating divalproex. It would be appropriate to check trough levels of valproate and oxcarbazepine to assess whether they're in the therapeutic range. 09/21/2022: Requires psychiatric admission. Bed search is underway. 09/20/2022: Based on pt's presentation today, I can only recommend staying the current course in terms of psychiatric treatment. He will still require psychiatric admission once medically stable. 09/19/2022: By history, pt has required much higher divalproex ER dose (3,000 mg/day), along with oxcarbazepine, to suppress priscila and seizures. If he can't tolerate whole divalproex ER tablets, divalproex or valproic acid could be used with a target dose of 2,000 mg/day. In either case, dose should be titrated to a target blood level in the range of 85-125 g/mL. 09/18/2022: Pt is now subject to a section 303 involuntary commitment. He must remain in the hospital on 1:1 observation until he's determined to be medically stable. At that time, a psychiatric bed search will need to be undertaken. Consider more aggressive titration of divalproex. 09/17/2022: Continue current medication regimen. Pt will require a hearing to enable continuing hospitalization (because he certainly can't be discharged to home). 09/16/2022: Since pt clearly needs both antiepileptic and antimanic pharmacotherapy, it would seem eminently reasonable to resume the divalproex and oxcarbazepine he'd previously been taking. I agree with your decision not to resume the 3,000mg/day divalproex ER and 1,200 mg/day oxcarbazepine doses right away, but would suggest titrating as aggressively as tolerated. Note that divalproex ER is not equally bioavailable as IR divalproex. If it's necessary to crush tablets or use any dosage form other than ER, total dose may need to be 20-25% lower than with the ER form. With divalproex, the target antimanic range of blood level is 85-125 g/mL (higher than the typical therapeutic range for seizure control of 50-100 g/mL) and dose should be titrated based on blood level. For oxcarbazepine there is fairly scant published data about therapeutic blood level for priscila, but for carbamazepine it's fairly clear that the target range is the same as for seizure control, so oxcarbazepine dose should be titrated to usual antiepileptic blood level. Pt was on fairly high-dose (4 mg/day) clonazepam until some unknown time prior to admission, and it's possible that some of the waxing and waning cognition we're seeing could represent a degree of benzodiazepine withdrawal. It's also obviously antiepileptic and wouldn't require titration via blood level, so I recommend resuming 2 mg BID. If pt won't accept oral medication, clonazepam is essentially equipotent with lorazepam, though doses of the latter would need to be divided due to shorter half-life (e.g., 1 mg QID). If pt requires parenteral antipsychotic medication due to potentially dangerous behavior appearing to arise from psychosis, haloperidol would appear to be the safest option (administeredwithoutdiphenhydramine due to the reported intolerance). This could be given as haloperidol 5 mg IM and lorazepam 2 mg IM q8 hr PRN psychosis. An administrative decision has previously been made that pt is not a candidate for admission to the psychiatric unit at [facility]. He certainly will require psychiatric hospitalization. A bed search is underway, but if he is still here on Sunday he will need a commitment hearing if he is to remain in the hospital involuntarily any longer. With respect to his involuntary status, it is my opinion that at present Mr. Becker does not have the capacity to make rational and informed decisions about healthcare so, even if he were to agree to remain in the hospital, we would not be able to use such agreement as informed consent and will continue to need to rely on the legal mechanisms for involuntary admission. Suicide Risk Level Suicide Risk Level: Low (q15 min observation checks) (any risk is due to disorganized behavior rather than suicidality as he consistently denies SI, remains on 1-on-1 due to being on medical floor and on 303 commitment) Risk Factors Assessment Male: Yes : Yes Do You Have Access To A Gun?: No Health Problems: Yes Mental Health Diagnoses: Yes Previous Psychiatric Hospitalization: Yes Protective Factors Assessment Responsible for Young Children: No Employed: No Stable Relationships: No Interval History Identifying Information ROGER BECKER is a 47-year-old male with a history of schizoaffective disorder, admitted on 09/14/2022 for seizures. Consult is by the hospitalist service for psychosis. Chief Complaint "I'm good". Subjective Subjective Patient was seen & assessed and interval progress reviewed with treatment team nursing and social work. Apparently overnight was crawling on the floor. Took higher dose of haldol. Today denies any side effects from higher dose of haldol speaks about the higher dose "being in my lockbox". States his groin is itchy, requested he bring this up with the hospitalist provider which he agrees to do. Physical Exam Psychiatric Orientation: alert and oriented to place Apperance: + disheveled Eye Contact: + fair eye contact Motor Behavior: + psychomotor agitation and + tremor (tremor vs TD vs psychom agitation, moves hands and feet repetitively ) Speech: + pressured speech Affect: + labile affect Mood: + dysphoric mood Thought Process: + looseness of associations Thought Content: + paranoid, + delusions and + persecution Suicidal Thoughts: denies suicidal thoughts Homicidal Thoughts: denies homicidal thoughts Hallucinations: + auditory hallucinations (seems to be responding to possible internal stimuli) Insight: + severely impaired insight Judgment: + limited judgement Vital Signs (Past 24 Hours) Last Vital Signs Temp 36.5 C 10/02/22 08:11 Pulse 75 10/02/22 08:11 Resp 18 10/02/22 08:11 BP 127/75 10/02/22 08:11 Pulse Ox 94 10/02/22 08:11 O2 Del Method Room Air 10/02/22 08:11 O2 Flow Rate 2 09/15/22 21:48 FiO2 30 09/14/22 22:35 Results & Data ([facility]) Current Inpatient Medications Current Inpatient Medications: Current Inpatient Medications Acetaminophen (Acetaminophen 500 Mg Tab) 500 mg PO Q6H PRN PRN Reason: pain/fever Stop: 10/15/22 19:55 Last Admin: 09/28/22 01:19 Dose: 500 mg Benztropine Mesylate (Benztropine Mesylate 1 Mg Tab) 1 mg PO BID PRN PRN Reason: muscle stiffness Stop: 10/24/22 20:59 Clonazepam (Clonazepam 1 Mg Tab) 1 mg PO BID [facility] Stop: 10/24/22 20:59 Last Admin: 10/02/22 08:30 Dose: 1 mg Divalproex Sodium (Divalproex Extended Release 500 Mg Tab) 500 mg PO QAM [facility] Stop: 10/26/22 08:59 Last Admin: 10/02/22 08:28 Dose: 500 mg Divalproex Sodium (Divalproex Extended Release 500 Mg Tab) 1,000 mg PO [facility] Stop: 10/25/22 20:59 Last Admin: 10/01/22 20:35 Dose: 1,000 mg Enoxaparin Sodium (Enoxaparin Inj 40 Mg/0.4 Ml Syr) 40 mg SQ [facility] Stop: 10/30/22 20:59 Last Admin: 10/01/22 20:37 Dose: 40 mg Haloperidol (Haloperidol 5 Mg Tab) 5 mg PO BID PRN PRN Reason: Agitation/psychosis Stop: 10/24/22 10:19 Last Admin: 10/01/22 17:53 Dose: 5 mg Haloperidol (Hal[facility]id[facility] 5 Mg Tab) [facility] [place] Stop: 11/01/22 08:59 Last Admin: 10/02/22 08:24 Dose: 5 mg Haloperidol (Haloperidol 5 Mg Tab) 10 mg PO [facility] Stop: 10/31/22 20:59 Last Admin: 10/01/22 20:37 Dose: 10 mg Ibuprofen (Ibuprofen 200 Mg Tab) 400 mg PO TID PRN PRN Reason: pain, headache Stop: 10/16/22 11:47 Last Admin: 09/27/22 08:16 Dose: 400 mg Lorazepam (Lorazepam 2 Mg/1 Ml Vial) 1 mg IV Q4H PRN PRN Reason: Anxiety/Agitation Stop: 10/24/22 19:47 Last Admin: 10/01/22 16:56 Dose: 1 mg Ondansetron HCl (Ondansetron Inj 2 Mg/Ml 2 Ml Vial) 4 mg IV Q6H PRN PRN Reason: Nausea And Vomiting Stop: 10/16/22 12:04 Last Admin: 09/21/22 09:00 Dose: 4 mg Oxcarbazepine (Oxcarbazepine 150 Mg Tablet) 750 mg PO BID [facility] Stop: 10/14/22 23:44 Last Admin: 10/02/22 08:26 Dose: 750 mg Propranolol HCl (Propranolol Hcl 10 Mg Tab) 10 mg PO BID [facility] Stop: 10/29/22 12:59 Last Admin: 10/02/22 08:27 Dose: 10 mg Tamsulosin HCl (Tamsulosin Hcl 0.4 Mg Cap) 0.4 mg PO HS [facility] Stop: 10/20/22 11:18 Last Admin: 10/01/22 20:39 Dose: 0.4 mg Mental Health & Subst Abuse Tx Therapist Name of Therapist: Mat Ch @ [facility] Clear (?) Negative Developer Name of Negative Developer: Joann santiago [facility] [employer] [facility] Post Discharge Appointments Primary Care Physician Name Of Family Doctor/PCP: Lico De Jesus
[2022-10-02] MEDS ORDERED: CALCIUM CARBONATE 500 MG CHEWABLE TAB PO PRN (12:37)
[2022-10-02] MEDS: haloperidoL 5 MG TAB PO PRN ×2 (13:00→21:47)
[2022-10-02] MEDS ORDERED: LORazepam 0.5 MG TAB PO STA ×2 (15:04→23:22)
--- NOTE | 2022-10-02 16:04 | Hospitalist Progress Note ---
Date of Service October 02, 2022 Assessment & Plan (1) Schizoaffective disorder: Plan: Schizoaffective disorder/personality disorder/mood disorder, suboptimal following recent confinement of [facility] Appreciate psychiatry input and recommendation-on Depakote and oxcarbazepine for mood stabilization. Also on Klonopin, Haldol Per psychiatry, 303 hearing was held on 09/18 for involuntary admission which was granted. Patient is still requiring one-to-one sitter Medically stable for discharge Awaiting inpatient psychiatric placement. No new symptoms and the patient remains medically stable to be discharged Has been waiting to be placed in inpatient psychiatric unit Dyspepsia Tums 500 mg 3 times daily as needed (2) Seizure: Plan: Seizure after Zyprexa in the ED- had 3 seizures which were attributed to high- dose Zyprexa administration S/p intubation for airway protection but he self extubated 09/14/22 and has been stable since Currently on Depakote(ER 500mg in AM and 1000mg in PM) and oxcarbazepine (750mg BID), also for his psychiatric issues also on Klonopin 1 mg twice daily EEG: Potentially abnormal awake/drowsy EEG with evidence of left parietal slowing and sharps. No evidence of persistent seizure activity. Generalized tremors are likely not due to seizure Lyme serology negative No more seizures Neurology recommendations noted Seizure seems to be controlled with current medications Remains stable otherwise Imaging studies: MRI brain: 1. No acute infarct or intracranial hemorrhage. 2. The temporal lobes are symmetric. 3. A few punctate foci of T2 hyperintensity seen within the periventricular and subcortical white matter of the supratentorial brain. These are nonspecific but greater than expected for age. Therefore, this could represent early microvascular ischemic change, migraines, Lyme's disease, or less likely a demyelinating disease or vasculitis. Generalized tremors-started on propranolol per psychiatry Has been getting propranolol 10 mg twice daily Has had anxiety symptoms and was given 0.5 mg Ativan orally x1 Plan DVT proph: Lovenox Dispo-medically stable for inpatient psychiatric facility- ongoing bed search. Patient remains hospitalized on completed 303 involuntary commitment and cannot leave the hospital AMA. Admission and Anticipated Discharge Date Admission Date: September 14, 2022 Subjective 10/01/2022 The patient was seen and examined in medical floor He still requires one-to-one sitter but otherwise stable Has tremors when he is conversing or doing something which does not look like seizures Awaiting placement 10/02/2022 The patient was seen and examined in medical floor He remains stable and he still has significant shaking's especially when he is trying to communicate Has had some issues with dyspepsia and was given Tums for that He was very anxious today and required 1 dose of oral Ativan of 0.5 mg Review of Systems Review of Systems: All systems reviewed and are unremarkable except as noted below Neurologic: Tremors involving the whole of the body Physical Exam Physical Exam: Lying in bed comfortably Constitutional: average body habitus; not ill appearing Eyes: PERRL, conjunctivae normal, anicteric sclerae ENMT: external ear and nose normal, oropharynx normal Neck: trachea midline, no thyromegaly Respiratory: no respiratory distress Auscultation: lungs clear to auscultation bilaterally Cardiovascular: Rate/Rhythm: regular rate and regular rhythm; not tachycardic Extremities: no edema Gastrointestinal (Abdomen): Inspection/Auscultation: normal bowel sounds; abdomen not distended Percussion/Palpation: abdomen soft; abdomen nontender Musculoskeletal: No acute arthritis involving any joint Neurologic: normal touch/pain/proprioception, moves all extremities and + focal motor deficit Lymphatic: no cervical or axillary lymphadenopathy Results & Data Results & Data Vital Signs (Past 12 Hours) Vital Signs Temp Pulse Resp BP Pulse Ox O2 Del Method 10/02/22 15:17 36.6 C 78 18 126/73 94 Room Air 10/02/22 08:11 36.5 C 75 18 127/75 94 Room Air Medications Administered Current Inpatient Medications Acetaminophen (Acetaminophen 500 Mg Tab) 500 mg PO Q6H PRN PRN Reason: pain/fever Stop: 10/15/22 19:55 Last Admin: 09/28/22 01:19 Dose: 500 mg Benztropine Mesylate (Benztropine Mesylate 1 Mg Tab) 1 mg PO BID PRN PRN Reason: muscle stiffness Stop: 10/24/22 20:59 Calcium Carbonate (Calcium Carbonate 500 Mg Chewable Tab) 500 mg PO Q6H PRN PRN Reason: Indigestion Stop: 11/01/22 12:36 Clonazepam (Clonazepam 1 Mg Tab) 1 mg PO BID [facility] Stop: 10/24/22 20:59 Last Admin: 10/02/22 08:30 Dose: 1 mg Divalproex Sodium (Divalproex Extended Release 500 Mg Tab) 500 mg PO QAM [facility] Stop: 10/26/22 08:59 Last Admin: 10/02/22 08:28 Dose: 500 mg Divalproex Sodium (Divalproex Extended Release 500 Mg Tab) 1,000 mg PO [facility] Stop: 10/25/22 20:59 Last Admin: 10/01/22 20:35 Dose: 1,000 mg Enoxaparin Sodium (Enoxaparin Inj 40 Mg/0.4 Ml Syr) 40 mg SQ [facility] Stop: 10/30/22 20:59 Last Admin: 10/01/22 20:37 Dose: 40 mg Haloperidol (Haloperidol 5 Mg Tab) 5 mg PO BID PRN PRN Reason: Agitation/psychosis Stop: 10/24/22 10:19 Last Admin: 10/02/22 13:00 Dose: 5 mg Haloperidol (Haloperidol 5 Mg Tab) 5 mg PO [facility] Stop: 11/01/22 08:59 Last Admin: 10/02/22 08:24 Dose: 5 mg Haloperidol (Haloperidol 5 Mg Tab) 10 mg PO [facility] Stop: 10/31/22 20:59 Last Admin: 10/01/22 20:37 Dose: 10 mg Ibuprofen (Ibuprofen 200 Mg Tab) 400 mg PO TID PRN PRN Reason: pain, headache Stop: 10/16/22 11:47 Last Admin: 09/27/22 08:16 Dose: 400 mg Lorazepam (Lorazepam 2 Mg/1 Ml Vial) 1 mg IV Q4H PRN PRN Reason: Anxiety/Agitation Stop: 10/24/22 19:47 Last Admin: 10/01/22 16:56 Dose: 1 mg Ondansetron HCl (Ondansetron Inj 2 Mg/Ml 2 Ml Vial) 4 mg IV Q6H PRN PRN Reason: Nausea And Vomiting Stop: 10/16/22 12:04 Last Admin: 09/21/22 09:00 Dose: 4 mg Oxcarbazepine (Oxcarbazepine 150 Mg Tablet) 750 mg PO BID [facility] Stop: 10/14/22 23:44 Last Admin: 10/02/22 08:26 Dose: 750 mg Propranolol HCl (Propranolol Hcl 10 Mg Tab) 10 mg PO BID [facility] Stop: 10/29/22 12:59 Last Admin: 10/02/22 08:27 Dose: 10 mg Tamsulosin HCl (Tamsulosin Hcl 0.4 Mg Cap) 0.4 mg PO [facility] Stop: 10/20/22 11:18 Last Admin: 10/01/22 20:39 Dose: 0.4 mg
[2022-10-02] MEDS: TAMSULOSIN HCL 0.4 MG CAP PO SCH (20:01)
[2022-10-02] MEDS: ENOXAPARIN INJ 40 MG/0.4 ML SYR SQ SCH (21:32)
[2022-10-03] MEDS: haloperidoL 5 MG TAB PO PRN (04:38)
[2022-10-03] MEDS: clonazePAM 1 MG TAB PO SCH ×2 (09:10→20:35)
[2022-10-03] MEDS: PROPRANOLOL HCL 10 MG TAB PO SCH ×2 (09:12→20:30)
[2022-10-03] MEDS: OXcarbazepine 150 MG TABLET PO SCH ×2 (09:12→20:29)
[2022-10-03] MEDS: haloperidoL 5 MG TAB PO SCH ×2 (09:12→20:28)
[2022-10-03] MEDS: DIVALPROEX EXTENDED RELEASE 500 MG TAB PO SCH ×2 (09:12→20:27)
[2022-10-03] MEDS: IBUPROFEN 200 MG TAB PO PRN (13:04)
--- NOTE | 2022-10-03 13:18 | Psychiatric Progress Note ---
Date of Service October 03, 2022 Impression / Recommendations Impression 47 y/o man with schizoaffective disorder, bipolar type who's been off his medication and who recently had seizures in the ED in the context of having been off his high-dose anticonvulsants and benzodiazepine and having been administered olanzapine. Has been improving since restarting his medications with no further seizures and remains medically stable. On 303 commitment awaiting inpatient psychiatric placement. Bilateral hand and foot tremor could represent Depakote side effect though seems to have a somewhat volitional component vs tardive dyskinesia (has been present since at least his most recent hospitalization at the [facility]). Could consider restarting clozapine, which he was previously stabilized on, though he may also benefit more from an antipsychotic option with an MURPHY, such as haldol decanoate, as he has a history of medication non-adherence. 10/03/2022:Ongoing acute priscila and psychosis with clanging, loosened associations but sleeping better with higher dose of Depakote and higher dose of haldol. Tolerating higher dose of haldol. Review of chart notable for long history of tremor, seems more related to psychomotor activation, noted to be almost absent on initially arriving in his room but tremor increased during our conversation. The patient remains hospitalized on a completed 303 involuntary commitment. This patient must remain on safety precautions with a 1-on-1 and is unable to leave the hospital AMA. 303 expires on 10/08/2022. (1) Schizoaffective disorder, bipolar type: Plan 10/03/2022: * Ongoing bed search. * Requires 1-on-1 due to 303 commitment, cannot leave AMA * Depakote ER 500mg qAM and 1000mg HS * Klonopin 1mg BID * Oxcarbazepine 750mg BID * Haldol to 5mg qAM and 10mg HS * Haldol 5mg BID prn po for psychosis/agitation * Propranolol 10mg BID po * Will begin process for 304 commitment tomorrow 10/02/2022: * Ongoing bed search. * Requires 1-on-1 due to 303 commitment, cannot leave AMA * Depakote ER 500mg qAM and 1000mg HS * Klonopin 1mg BID * Oxcarbazepine 750mg BID * Haldol to 5mg qAM and 10mg HS * Haldol 5mg BID prn po for psychosis/agitation * Propranolol 10mg BID po 10/01/2022: * Ongoing bed search. * Requires 1-on-1 due to 303 commitment, cannot leave AMA * Depakote ER 500mg qAM and 1000mg HS * Klonopin 1mg BID * Oxcarbazepine 750mg BID * Increase Haldol to 5mg qAM and 10mg HS * Haldol 5mg BID prn po for psychosis/agitation * Propranolol 10mg BID po 09/30/2022: * Ongoing bed search. * Requires 1-on-1 due to 303 commitment, cannot leave AMA * Depakote ER 500mg qAM and 1000mg HS * Klonopin 1mg BID * Oxcarbazepine 750mg BID * Haldol 5mg BID po * Haldol 5mg BID prn po for psychosis/agitation * Propranolol 10mg BID po 09/29/2022: * Ongoing bed search. * Requires 1-on-1 due to 303 commitment, cannot leave AMA * Depakote ER 500mg qAM and 1000mg HS * Klonopin 1mg BID * Oxcarbazepine 750mg BID * Haldol 5mg BID po * Haldol 5mg BID prn po for psychosis/agitation * Propranolol 10mg BID po 09/28/2022: * Ongoing bed search. * Requires 1-on-1 due to 303 commitment, cannot leave AMA * Depakote ER 500mg qAM and 1000mg HS * Klonopin to 1mg BID * Oxcarbazepine 750mg BID * Schedule Haldol 5mg BID po * Haldol 5mg BID prn po for psychosis/agitation 09/27/2022: * Ongoing bed search. * Requires 1-on-1 due to 303 commitment, cannot leave AMA * Depakote ER 500mg qAM and 1000mg HS * Klonopin to 1mg BID * Oxcarbazepine 750mg BID * Haldol 5mg TID prn po for psychosis/agitation 09/26/2022: * Ongoing bed search. * Requires 1-on-1 due to 303 commitment, cannot leave AMA * Depakote ER 500mg qAM and 1000mg HS * Klonopin to 1mg BID * Oxcarbazepine 750mg BID * Haldol 5mg TID prn po for psychosis/agitation 09/25/2022: * Ongoing bed search. * Requires 1-on-1 due to 303 commitment, cannot leave AMA * Increase to Depakote ER 500mg qAM and Depakote ER 1000mg HS * Continue Klonopin to 1mg BID * Continue Oxcarbazepine 750mg BID * Haldol 5mg TID prn po for psychosis/agitation 09/24/2022: * Ongoing bed search. * Requires 1-on-1 due to 303 commitment, cannot leave AMA * Continue with Depakote ER 500mg BID, likely increase again in 2-3 days * Increase Klonopin to 1mg BID * Continue Oxcarbazepine 750mg BID * Haldol 5mg TID prn po for psychosis/agitation 09/23/2022: * Ongoing bed search. * Requires 1-on-1 due to 303 commitment, cannot leave AMA * Increase Depakote ER to 500mg BID * Continue Klonopin 1mg daily, Oxcarbazepine 750mg BID * Haldol 5mg BID prn po for psychosis/agitation 09/22/2022: Requires psychiatric admission. Bed search continues. Please do consider titrating divalproex. It would be appropriate to check trough levels of valproate and oxcarbazepine to assess whether they're in the therapeutic range. 09/21/2022: Requires psychiatric admission. Bed search is underway. 09/20/2022: Based on pt's presentation today, I can only recommend staying the current course in terms of psychiatric treatment. He will still require psychiatric admission once medically stable. 09/19/2022: By history, pt has required much higher divalproex ER dose (3,000 mg/day), along with oxcarbazepine, to suppress priscila and seizures. If he can't tolerate whole divalproex ER tablets, divalproex or valproic acid could be used with a target dose of 2,000 mg/day. In either case, dose should be titrated to a target blood level in the range of 85-125 g/mL. 09/18/2022: Pt is now subject to a section 303 involuntary commitment. He must remain in the hospital on 1:1 observation until he's determined to be medically stable. At that time, a psychiatric bed search will need to be undertaken. Consider more aggressive titration of divalproex. 09/17/2022: Continue current medication regimen. Pt will require a hearing to enable continuing hospitalization (because he certainly can't be discharged to home). 09/16/2022: Since pt clearly needs both antiepileptic and antimanic pharmacotherapy, it would seem eminently reasonable to resume the divalproex and oxcarbazepine he'd previously been taking. I agree with your decision not to resume the 3,000mg/day divalproex ER and 1,200 mg/day oxcarbazepine doses right away, but would suggest titrating as aggressively as tolerated. Note that divalproex ER is not equally bioavailable as IR divalproex. If it's necessary to crush tablets or use any dosage form other than ER, total dose may need to be 20-25% lower than with the ER form. With divalproex, the target antimanic range of blood level is 85-125 g/mL (higher than the typical therapeutic range for seizure control of 50-100 g/mL) and dose should be titrated based on blood level. For oxcarbazepine there is fairly scant published data about therapeutic blood level for priscila, but for carbamazepine it's fairly clear that the target range is the same as for seizure control, so oxcarbazepine dose should be titrated to usual antiepileptic blood level. Pt was on fairly high-dose (4 mg/day) clonazepam until some unknown time prior to admission, and it's possible that some of the waxing and waning cognition we're seeing could represent a degree of benzodiazepine withdrawal. It's also obviously antiepileptic and wouldn't require titration via blood level, so I recommend resuming 2 mg BID. If pt won't accept oral medication, clonazepam is essentially equipotent with lorazepam, though doses of the latter would need to be divided due to shorter half-life (e.g., 1 mg QID). If pt requires parenteral antipsychotic medication due to potentially dangerous behavior appearing to arise from psychosis, haloperidol would appear to be the safest option (administeredwithoutdiphenhydramine due to the reported intolerance). This could be given as haloperidol 5 mg IM and lorazepam 2 mg IM q8 hr PRN psychosis. An administrative decision has previously been made that pt is not a candidate for admission to the psychiatric unit at [facility]. He certainly will require psychiatric hospitalization. A bed search is underway, but if he is still here on Sunday he will need a commitment hearing if he is to remain in the hospital involuntarily any longer. With respect to his involuntary status, it is my opinion that at present Mr. Becker does not have the capacity to make rational and informed decisions about healthcare so, even if he were to agree to remain in the hospital, we would not be able to use such agreement as informed consent and will continue to need to rely on the legal mechanisms for involuntary admission. Suicide Risk Level Suicide Risk Level: Low (q15 min observation checks) (any risk is due to disorganized behavior rather than suicidality as he consistently denies SI, remains on 1-on- due to being on medical floor and on 303 commitment) Risk Factors Assessment Male: Yes : Yes Do You Have Access To A Gun?: No Health Problems: Yes Mental Health Diagnoses: Yes Previous Psychiatric Hospitalization: Yes Protective Factors Assessment Responsible for Young Children: No Employed: No Stable Relationships: No Interval History Identifying Information ROGER BECKER is a 47-year-old male with a history of schizoaffective disorder, admitted on 09/14/2022 for seizures. Consult is by the hospitalist service for psychosis. Chief Complaint "I had a fingertip reaction like salamanders". Review of Systems Notes intermittent sleep, good appetite Subjective Subjective Patient was seen & assessed and interval progress reviewed with treatment team nursing and social work. Tells me he is ok today but also feels "a little scared" due to "I had a fingertip reaction like salamanders it was from being part of the [facility]". Denies any other concerns or questions. Denies medication side effects except that they "make my reactions too fast" which he states is a bad thing but cannot expand on this. Physical Exam Psychiatric Orientation: alert and oriented to place Apperance: + disheveled Eye Contact: + fair eye contact Motor Behavior: + psychomotor agitation and + tremor (tremor vs TD vs psychom agitation, moves hands and feet repetitively ) Speech: + pressured speech Affect: + labile affect Mood: + dysphoric mood Thought Process: + looseness of associations Thought Content: + paranoid, + delusions and + persecution Suicidal Thoughts: denies suicidal thoughts Homicidal Thoughts: denies homicidal thoughts Hallucinations: + auditory hallucinations (seems to be responding to possible internal stimuli) Insight: + severely impaired insight Judgment: + limited judgement Vital Signs (Past 24 Hours) Last Vital Signs Temp 36.7 C 10/03/22 09:29 Pulse 79 10/03/22 09:29 Resp 18 10/03/22 09:29 BP 122/82 10/03/22 09:29 Pulse Ox 96 10/03/22 09:29 O2 Del Method Room Air 10/03/22 09:29 O2 Flow Rate 2 09/15/22 21:48 FiO2 30 09/14/22 22:35 Results & Data (RUST) Current Inpatient Medications Current Inpatient Medications: Current Inpatient Medications Acetaminophen (Acetaminophen 500 Mg Tab) 500 mg PO Q6H PRN PRN Reason: pain/fever Stop: 10/15/22 19:55 Last Admin: 09/28/22 01:19 Dose: 500 mg Benztropine Mesylate (Benztropine Mesylate 1 Mg Tab) 1 mg PO BID PRN PRN Reason: muscle stiffness Stop: 10/24/22 20:59 Calcium Carbonate (Calcium Carbonate 500 Mg Chewable Tab) 500 mg PO Q6H PRN PRN Reason: Indigestion Stop: 11/01/22 12:36 Clonazepam (Clonazepam 1 Mg Tab) 1 mg PO BID [facility] Stop: 10/24/22 20:59 Last Admin: 10/03/22 09:10 Dose: 1 mg Divalproex Sodium (Divalproex Extended Release 500 Mg Tab) 500 mg PO QAM [facility] Stop: 10/26/22 08:59 Last Admin: 10/03/22 09:12 Dose: 500 mg Divalproex Sodium (Divalproex Extended Release 500 Mg Tab) 1,000 mg PO HS [facility] Stop: 10/25/22 20:59 Last Admin: 10/02/22 20:03 Dose: 1,000 mg Enoxaparin Sodium (Enoxaparin Inj 40 Mg/0.4 Ml Syr) 40 mg SQ HS [facility] Stop: 10/30/22 20:59 Last Admin: 10/02/22 21:32 Dose: Not Given Haloperidol (Haloperidol 5 Mg Tab) 5 mg PO BID PRN PRN Reason: Agitation/psychosis Stop: 10/24/22 10:19 Last Admin: 10/03/22 04:38 Dose: 5 mg Haloperidol (Haloperidol 5 Mg Tab) 5 mg PO QAM [facility] Stop: 11/01/22 08:59 Last Admin: 10/03/22 09:12 Dose: 5 mg Haloperidol (Haloperidol 5 Mg Tab) 10 mg PO HS [facility] Stop: 10/31/22 20:59 Last Admin: 10/02/22 20:01 Dose: 10 mg Ibuprofen (Ibuprofen 200 Mg Tab) 400 mg PO TID PRN PRN Reason: pain, headache Stop: 10/16/22 11:47 Last Admin: 10/03/22 13:04 Dose: 400 mg Lorazepam (Lorazepam 2 Mg/1 Ml Vial) 1 mg IV Q4H PRN PRN Reason: Anxiety/Agitation Stop: 10/24/22 19:47 Last Admin: 10/01/22 16:56 Dose: 1 mg Ondansetron HCl (Ondansetron Inj 2 Mg/Ml 2 Ml Vial) 4 mg IV Q6H PRN PRN Reason: Nausea And Vomiting Stop: 10/16/22 12:04 Last Admin: 09/21/22 09:00 Dose: 4 mg Oxcarbazepine (Oxcarbazepine 150 Mg Tablet) 750 mg PO BID [facility] Stop: 10/14/22 23:44 Last Admin: 10/03/22 09:12 Dose: 750 mg Propranolol HCl (Propranolol Hcl 10 Mg Tab) 10 mg PO BID [facility] Stop: 10/29/22 12:59 Last Admin: 10/03/22 09:12 Dose: 10 mg Tamsulosin HCl (Tamsulosin Hcl 0.4 Mg Cap) 0.4 mg PO HS [facility] Stop: 10/20/22 11:18 Last Admin: 10/02/22 20:01 Dose: 0.4 mg Mental Health & Subst Abuse Tx Therapist Name of Therapist: Mat Ch @ [facility] Clear (?) Supervisor Policy Change Clerks Name of Supervisor Policy Change Clerks: Joann [facility] Post Discharge Appointments Primary Care Physician Name Of Family Doctor/PCP: Lico De Jesus
[2022-10-03] MEDS ORDERED: LORazepam 1 MG TAB PO STA (16:17)
--- NOTE | 2022-10-03 17:40 | Hospitalist Progress Note ---
Date of Service October 03, 2022 Assessment & Plan (1) Schizoaffective disorder: Plan: Schizoaffective disorder/personality disorder/mood disorder, suboptimal following recent confinement of [facility] Appreciate psychiatry input and recommendation-on Depakote and oxcarbazepine for mood stabilization. Also on Klonopin, Haldol Per psychiatry, 303 hearing was held on 09/18 for involuntary admission which was granted. Patient is still requiring one-to-one sitter Medically stable for discharge Awaiting inpatient psychiatric placement. No new symptoms and the patient remains medically stable to be discharged Has been waiting to be placed in inpatient psychiatric unit Noted to be very anxious today and required 1 dose of oral Ativan of 1 mg Dyspepsia Tums 500 mg 3 times daily as needed Denies any more epigastric discomfort (2) Seizure: Plan: Seizure after Zyprexa in the ED- had 3 seizures which were attributed to high- dose Zyprexa administration S/p intubation for airway protection but he self extubated 09/14/22 and has been stable since Currently on Depakote(ER 500mg in AM and 1000mg in PM) and oxcarbazepine (750mg BID), also for his psychiatric issues also on Klonopin 1 mg twice daily EEG: Potentially abnormal awake/drowsy EEG with evidence of left parietal slowing and sharps. No evidence of persistent seizure activity. Generalized tremors are likely not due to seizure Lyme serology negative No more seizures Neurology recommendations noted Seizure seems to be controlled with current medications Remains stable otherwise No more seizure activity Imaging studies: MRI brain: 1. No acute infarct or intracranial hemorrhage. 2. The temporal lobes are symmetric. 3. A few punctate foci of T2 hyperintensity seen within the periventricular and subcortical white matter of the supratentorial brain. These are nonspecific but greater than expected for age. Therefore, this could represent early microv ascular ischemic change, migraines, Lyme's disease, or less likely a demyelinating disease or vasculitis. Generalized tremors-started on propranolol per psychiatry Has been getting propranolol 10 mg twice daily Has had anxiety symptoms and was given 0.5 mg Ativan orally x1 Required another dose of oral Ativan today Will await further psychiatric medications update Plan DVT proph: Lovenox Dispo-medically stable for inpatient psychiatric facility- ongoing bed search. Patient remains hospitalized on completed 303 involuntary commitment and cannot leave the hospital AMA. Admission and Anticipated Discharge Date Admission Date: September 14, 2022 Subjective 10/01/2022 The patient was seen and examined in medical floor He still requires one-to-one sitter but otherwise stable Has tremors when he is conversing or doing something which does not look like seizures Awaiting placement 10/02/2022 The patient was seen and examined in medical floor He remains stable and he still has significant shaking's especially when he is trying to communicate Has had some issues with dyspepsia and was given Tums for that He was very anxious today and required 1 dose of oral Ativan of 0.5 mg 10/03/2022 The patient was seen and examined in medical floor He remains stable with tremors involving the extremities at rest The tremors get worse with conversation Seems to be more anxious today Review of Systems Review of Systems: All systems reviewed and are unremarkable except as noted below Neurologic: Tremors involving the whole of the body Physical Exam Physical Exam: Lying in bed comfortably Constitutional: average body habitus; not ill appearing Eyes: PERRL, conjunctivae normal, anicteric sclerae ENMT: external ear and nose normal, oropharynx normal Neck: trachea midline, no thyromegaly Respiratory: no respiratory distress Auscultation: lungs clear to auscultation bilaterally Cardiovascular: Rate/Rhythm: regular rate and regular rhythm; not tachycardic Extremities: no edema Gastrointestinal (Abdomen): Inspection/Auscultation: normal bowel sounds; abdomen not distended Percussion/Palpation: abdomen soft; abdomen nontender Musculoskeletal: No acute arthritis involving any joint Neurologic: normal touch/pain/proprioception, moves all extremities and + focal motor deficit Lymphatic: no cervical or axillary lymphadenopathy Results & Data Results & Data Vital Signs (Past 12 Hours) Vital Signs Temp Pulse Resp BP Pulse Ox O2 Del Method 10/03/22 09:29 36.7 C 79 18 122/82 96 Room Air Medications Administered Current Inpatient Medications Acetaminophen (Acetaminophen 500 Mg Tab) 500 mg PO Q6H PRN PRN Reason: pain/fever Stop: 10/15/22 19:55 Last Admin: 09/28/22 01:19 Dose: 500 mg Benztropine Mesylate (Benztropine Mesylate 1 Mg Tab) 1 mg PO BID PRN PRN Reason: muscle stiffness Stop: 10/24/22 20:59 Calcium Carbonate (Calcium Carbonate 500 Mg Chewable Tab) 500 mg PO Q6H PRN PRN Reason: Indigestion Stop: 11/01/22 12:36 Clonazepam (Clonazepam 1 Mg Tab) 1 mg PO BID [facility] Stop: 10/24/22 20:59 Last Admin: 10/03/22 09:10 Dose: 1 mg Divalproex Sodium (Divalproex Extended Release 500 Mg Tab) 500 mg PO QAM [facility] Stop: 10/26/22 08:59 Last Admin: 10/03/22 09:12 Dose: 500 mg Divalproex Sodium (Divalproex Extended Release 500 Mg Tab) 1,000 mg PO [facility] Stop: 10/25/22 20:59 Last Admin: 10/02/22 20:03 Dose: 1,000 mg Enoxaparin Sodium (Enoxaparin Inj 40 Mg/0.4 Ml Syr) 40 mg SQ [facility] Stop: 10/30/22 20:59 Last Admin: 10/02/22 21:32 Dose: Not Given Haloperidol (Haloperidol 5 Mg Tab) 5 mg PO BID PRN PRN Reason: Agitation/psychosis Stop: 10/24/22 10:19 Last Admin: 10/03/22 04:38 Dose: 5 mg Haloperidol (Haloperidol 5 Mg Tab) [facility] Stop: 11/01/22 08:59 Last Admin: 10/03/22 09:12 Dose: 5 mg Haloperidol (Haloperidol 5 Mg Tab) 10 mg PO [facility] Stop: 10/31/22 20:59 Last Admin: 10/02/22 20:01 Dose: 10 mg Ibuprofen (Ibuprofen 200 Mg Tab) 400 mg PO TID PRN PRN Reason: pain, headache Stop: 10/16/22 11:47 Last Admin: 10/03/22 13:04 Dose: 400 mg Lorazepam (Lorazepam 2 Mg/1 Ml Vial) 1 mg IV Q4H PRN PRN Reason: Anxiety/Agitation Stop: 10/24/22 19:47 Last Admin: 10/01/22 16:56 Dose: 1 mg Ondansetron HCl (Ondansetron Inj 2 Mg/Ml 2 Ml Vial) 4 mg IV Q6H PRN PRN Reason: Nausea And Vomiting Stop: 10/16/22 12:04 Last Admin: 09/21/22 09:00 Dose: 4 mg Oxcarbazepine (Oxcarbazepine 150 Mg Tablet) 750 mg PO BID [facility] Stop: 10/14/22 23:44 Last Admin: 10/03/22 09:12 Dose: 750 mg Propranolol HCl (Propranolol Hcl 10 Mg Tab) 10 mg PO BID [facility] Stop: 10/29/22 12:59 Last Admin: 10/03/22 09:12 Dose: 10 mg Tamsulosin HCl (Tamsulosin Hcl 0.4 Mg Cap) 0.4 mg PO [facility] Stop: 10/20/22 11:18 Last Admin: 10/02/22 20:01 Dose: 0.4 mg
[2022-10-03] MEDS ORDERED: LORazepam 1 MG TAB PO PRN (20:23)
[2022-10-03] MEDS: TAMSULOSIN HCL 0.4 MG CAP PO SCH (20:30)
[2022-10-03] MEDS: ENOXAPARIN INJ 40 MG/0.4 ML SYR SQ SCH (20:38)
[2022-10-04] MEDS: DIVALPROEX EXTENDED RELEASE 500 MG TAB PO SCH ×2 (07:21→20:16)
[2022-10-04] MEDS: haloperidoL 5 MG TAB PO SCH ×2 (07:21→19:32)
[2022-10-04] MEDS: OXcarbazepine 150 MG TABLET PO SCH ×2 (07:22→20:17)
[2022-10-04] MEDS: clonazePAM 1 MG TAB PO SCH ×2 (07:23→20:15)
[2022-10-04] MEDS: PROPRANOLOL HCL 10 MG TAB PO SCH ×2 (08:12→20:38)
--- NOTE | 2022-10-04 10:29 | Psychiatric Progress Note ---
Date of Service October 04, 2022 Impression / Recommendations Impression 47 y/o man with schizoaffective disorder, bipolar type who's been off his medication and who recently had seizures in the ED in the context of having been off his high-dose anticonvulsants and benzodiazepine and having been administered olanzapine. Has been improving since restarting his medications with no further seizures and remains medically stable. On 303 commitment awaiting inpatient psychiatric placement. Bilateral hand and foot tremor could represent Depakote side effect though seems to have a somewhat volitional component vs tardive dyskinesia (has been present since at least his most recent hospitalization at the [facility]). Could consider restarting clozapine, which he was previously stabilized on, though he may also benefit more from an antipsychotic option with an MURPHY, such as haldol decanoate, as he has a history of medication non-adherence. 10/04/2022:Ongoing acute priscila and psychosis with clanging, loosened associations but sleeping better with higher dose of Depakote and higher dose of haldol. Completed 304 commitment paperwork, hearing scheduled for tomorrow. Trial of scheduled cogentin to see if this helps at all with tremor. Given his increased use of ativan prn switched to prn Klonopin since he is already on scheduled Klonopin. Has haldol IM and ativan IM for acute behavioral emergency. The patient remains hospitalized on a completed 303 involuntary commitment. This patient must remain on safety precautions with a 1-on-1 and is unable to leave the hospital AMA. 303 expires on 10/08/2022. (1) Schizoaffective disorder, bipolar type: Plan 10/04/2022: * Ongoing bed search. * Requires 1-on-1 due to 303 commitment, cannot leave AMA * Depakote ER 500mg qAM and 1000mg HS * Klonopin 1mg BID * Oxcarbazepine 750mg BID * Haldol 5mg qAM and 10mg HS * Haldol 5mg BID prn po for psychosis/agitation * Propranolol 10mg BID po * 304 commitment hearing scheduled for tomorrow morning 10/03/2022: * Ongoing bed search. * Requires 1-on-1 due to 303 commitment, cannot leave AMA * Depakote ER 500mg qAM and 1000mg HS * Klonopin 1mg BID * Oxcarbazepine 750mg BID * Haldol to 5mg qAM and 10mg HS * Haldol 5mg BID prn po for psychosis/agitation * Propranolol 10mg BID po * Will begin process for 304 commitment tomorrow 10/02/2022: * Ongoing bed search. * Requires 1-on-1 due to 303 commitment, cannot leave AMA * Depakote ER 500mg qAM and 1000mg HS * Klonopin 1mg BID * Oxcarbazepine 750mg BID * Haldol to 5mg qAM and 10mg HS * Haldol 5mg BID prn po for psychosis/agitation * Propranolol 10mg BID po 10/01/2022: * Ongoing bed search. * Requires 1-on-1 due to 303 commitment, cannot leave AMA * Depakote ER 500mg qAM and 1000mg HS * Klonopin 1mg BID * Oxcarbazepine 750mg BID * Increase Haldol to 5mg qAM and 10mg HS * Haldol 5mg BID prn po for psychosis/agitation * Propranolol 10mg BID po 09/30/2022: * Ongoing bed search. * Requires 1-on-1 due to 303 commitment, cannot leave AMA * Depakote ER 500mg qAM and 1000mg HS * Klonopin 1mg BID * Oxcarbazepine 750mg BID * Haldol 5mg BID po * Haldol 5mg BID prn po for psychosis/agitation * Propranolol 10mg BID po 09/29/2022: * Ongoing bed search. * Requires 1-on-1 due to 303 commitment, cannot leave AMA * Depakote ER 500mg qAM and 1000mg HS * Klonopin 1mg BID * Oxcarbazepine 750mg BID * Haldol 5mg BID po * Haldol 5mg BID prn po for psychosis/agitation * Propranolol 10mg BID po 09/28/2022: * Ongoing bed search. * Requires 1-on-1 due to 303 commitment, cannot leave AMA * Depakote ER 500mg qAM and 1000mg HS * Klonopin to 1mg BID * Oxcarbazepine 750mg BID * Schedule Haldol 5mg BID po * Haldol 5mg BID prn po for psychosis/agitation 09/27/2022: * Ongoing bed search. * Requires 1-on-1 due to 303 commitment, cannot leave AMA * Depakote ER 500mg qAM and 1000mg HS * Klonopin to 1mg BID * Oxcarbazepine 750mg BID * Haldol 5mg TID prn po for psychosis/agitation 09/26/2022: * Ongoing bed search. * Requires 1-on-1 due to 303 commitment, cannot leave AMA * Depakote ER 500mg qAM and 1000mg HS * Klonopin to 1mg BID * Oxcarbazepine 750mg BID * Haldol 5mg TID prn po for psychosis/agitation 09/25/2022: * Ongoing bed search. * Requires 1-on-1 due to 303 commitment, cannot leave AMA * Increase to Depakote ER 500mg qAM and Depakote ER 1000mg HS * Continue Klonopin to 1mg BID * Continue Oxcarbazepine 750mg BID * Haldol 5mg TID prn po for psychosis/agitation 09/24/2022: * Ongoing bed search. * Requires 1-on-1 due to 303 commitment, cannot leave AMA * Continue with Depakote ER 500mg BID, likely increase again in 2-3 days * Increase Klonopin to 1mg BID * Continue Oxcarbazepine 750mg BID * Haldol 5mg TID prn po for psychosis/agitation 09/23/2022: * Ongoing bed search. * Requires 1-on-1 due to 303 commitment, cannot leave AMA * Increase Depakote ER to 500mg BID * Continue Klonopin 1mg daily, Oxcarbazepine 750mg BID * Haldol 5mg BID prn po for psychosis/agitation 09/22/2022: Requires psychiatric admission. Bed search continues. Please do consider titrating divalproex. It would be appropriate to check trough levels of valproate and oxcarbazepine to assess whether they're in the therapeutic range. 09/21/2022: Requires psychiatric admission. Bed search is underway. 09/20/2022: Based on pt's presentation today, I can only recommend staying the current course in terms of psychiatric treatment. He will still require psychiatric admission once medically stable. 09/19/2022: By history, pt has required much higher divalproex ER dose (3,000 mg/day), along with oxcarbazepine, to suppress priscila and seizures. If he can't tolerate whole divalproex ER tablets, divalproex or valproic acid could be used with a target dose of 2,000 mg/day. In either case, dose should be titrated to a target blood level in the range of 85-125 g/mL. 09/18/2022: Pt is now subject to a section 303 involuntary commitment. He must remain in the hospital on 1:1 observation until he's determined to be medically stable. At that time, a psychiatric bed search will need to be undertaken. Consider more aggressive titration of divalproex. 09/17/2022: Continue current medication regimen. Pt will require a hearing to enable continuing hospitalization (because he certainly can't be discharged to home). 09/16/2022: Since pt clearly needs both antiepileptic and antimanic pharmacotherapy, it would seem eminently reasonable to resume the divalproex and oxcarbazepine he'd previously been taking. I agree with your decision not to resume the 3,000mg/day divalproex ER and 1,200 mg/day oxcarbazepine doses right away, but would suggest titrating as aggressively as tolerated. Note that divalproex ER is not equally bioavailable as IR divalproex. If it's necessary to crush tablets or use any dosage form other than ER, total dose may need to be 20-25% lower than with the ER form. With divalproex, the target antimanic range of blood level is 85-125 g/mL (higher than the typical therapeutic range for seizure control of 50-100 g/mL) and dose should be titrated based on blood level. For oxcarbazepine there is fairly scant published data about therapeutic blood level for priscila, but for carbamazepine it's fairly clear that the target range is the same as for seizure control, so oxcarbazepine dose should be titrated to usual antiepileptic blood level. Pt was on fairly high-dose (4 mg/day) clonazepam until some unknown time prior to admission, and it's possible that some of the waxing and waning cognition we're seeing could represent a degree of benzodiazepine withdrawal. It's also obviously antiepileptic and wouldn't require titration via blood level, so I recommend resuming 2 mg BID. If pt won't accept oral medication, clonazepam is essentially equipotent with lorazepam, though doses of the latter would need to be divided due to shorter half-life (e.g., 1 mg QID). If pt requires parenteral antipsychotic medication due to potentially dangerous behavior appearing to arise from psychosis, haloperidol would appear to be the safest option (administeredwithoutdiphenhydramine due to the reported intolerance). This could be given as haloperidol 5 mg IM and lorazepam 2 mg IM q8 hr PRN psychosis. An administrative decision has previously been made that pt is not a candidate for admission to the psychiatric unit at [facility]. He certainly will require psychiatric hospitalization. A bed search is underway, but if he is still here on Sunday he will need a commitment hearing if he is to remain in the hospital involuntarily any longer. With respect to his involuntary status, it is my opinion that at present Mr. Becker does not have the capacity to make rational and informed decisions about healthcare so, even if he were to agree to remain in the hospital, we would not be able to use such agreement as informed consent and will continue to need to rely on the legal mechanisms for involuntary admission. Suicide Risk Level Suicide Risk Level: Low (q15 min observation checks) (any risk is due to disorganized behavior rather than suicidality as he consistently denies SI, remains on 1-on-1 due to being on medical floor and on 303 commitment) Risk Factors Assessment Male: Yes : Yes Do You Have Access To A Gun?: No Health Problems: Yes Mental Health Diagnoses: Yes Previous Psychiatric Hospitalization: Yes Protective Factors Assessment Responsible for Young Children: No Employed: No Stable Relationships: No Interval History Identifying Information ROGER BECKER is a 47-year-old male with a history of schizoaffective disorder, admitted on 09/14/2022 for seizures. Consult is by the hospitalist service for psychosis. Chief Complaint "good". Subjective Subjective Patient was seen & assessed and interval progress reviewed. States he is "good" and his sleep was "good". Asked about medication side effects tells me "I learned a lot covered in mud and marginal paper" and later speaks about coconut in his animal crackers and relates this to people wearing coconuts at the beach. Informed him that I would be filing for 304 commitment which he expressed frustration with. Informed him of his right to speak with his public safety police and participate in the commitment hearing via phone. Physical Exam Psychiatric Orientation: alert and oriented to place Apperance: + disheveled Eye Contact: + fair eye contact Motor Behavior: + psychomotor agitation and + tremor (tremor vs TD vs psychom agitation, moves hands and feet repetitively ) Speech: + pressured speech Affect: + labile affect Mood: + dysphoric mood Thought Process: + looseness of associations Thought Content: + paranoid, + delusions and + persecution Suicidal Thoughts: denies suicidal thoughts Homicidal Thoughts: denies homicidal thoughts Hallucinations: + auditory hallucinations (seems to be responding to possible internal stimuli) Insight: + severely impaired insight Judgment: + limited judgement Vital Signs (Past 24 Hours) Last Vital Signs Temp 36.8 C 10/04/22 07:27 Pulse 76 10/04/22 07:27 Resp 16 10/04/22 07:27 BP 113/74 10/04/22 07:27 Pulse Ox 95 10/04/22 07:27 O2 Del Method Room Air 10/04/22 07:27 O2 Flow Rate 2 09/15/22 21:48 FiO2 30 09/14/22 22:35 Results & Data ([facility]) Current Inpatient Medications Current Inpatient Medications: Current Inpatient Medications Acetaminophen (Acetaminophen 500 Mg Tab) 500 mg PO Q6H PRN PRN Reason: pain/fever Stop: 10/15/22 19:55 Last Admin: 09/28/22 01:19 Dose: 500 mg Benztropine Mesylate (Benztropine Mesylate 1 Mg Tab) 1 mg PO BID PRN PRN Reason: muscle stiffness Stop: 10/24/22 20:59 Calcium Carbonate (Calcium Carbonate 500 Mg Chewable Tab) 500 mg PO Q6H PRN PRN Reason: Indigestion Stop: 11/01/22 12:36 Clonazepam (Clonazepam 1 Mg Tab) 1 mg PO BID [facility]I Stop: 10/24/22 20:59 Last Admin: 10/04/22 07:23 Dose: 1 mg Divalproex Sodium (Divalproex Extended Release 500 Mg Tab) 500 mg PO QAM [facility] Stop: 10/26/22 08:59 Last Admin: 10/04/22 07:21 Dose: 500 mg Divalproex Sodium (Divalproex Extended Release 500 Mg Tab) 1,000 mg PO HS [facility] Stop: 10/25/22 20:59 Last Admin: 10/03/22 20:27 Dose: 1,000 mg Enoxaparin Sodium (Enoxaparin Inj 40 Mg/0.4 Ml Syr) 40 mg SQ HS [facility] Stop: 10/30/22 20:59 Last Admin: 10/03/22 20:38 Dose: Not Given Haloperidol (Haloperidol 5 Mg Tab) 5 mg PO BID PRN PRN Reason: Agitation/psychosis Stop: 10/24/22 10:19 Last Admin: 10/03/22 04:38 Dose: 5 mg Haloperidol (Haloperidol 5 Mg Tab) 5 mg PO QAM [facility] Stop: 11/01/22 08:59 Last Admin: 10/04/22 07:21 Dose: 5 mg Haloperidol (Haloperidol 5 Mg Tab) 10 mg PO HS [facility] Stop: 10/31/22 20:59 Last Admin: 10/03/22 20:28 Dose: 10 mg Ibuprofen (Ibuprofen 200 Mg Tab) 400 mg PO TID PRN PRN Reason: pain, headache Stop: 10/16/22 11:47 Last Admin: 10/03/22 13:04 Dose: 400 mg Lorazepam (Lorazepam 1 Mg Tab) 1 mg PO BID PRN PRN Reason: Anxiety/Agitation Stop: 11/02/22 20:22 Ondansetron HCl (Ondansetron Inj 2 Mg/Ml 2 Ml Vial) 4 mg IV Q6H PRN PRN Reason: Nausea And Vomiting Stop: 10/16/22 12:04 Last Admin: 09/21/22 09:00 Dose: 4 mg Oxcarbazepine (Oxcarbazepine 150 Mg Tablet) 750 mg PO BID [facility] Stop: 10/14/22 23:44 Last Admin: 10/04/22 07:22 Dose: 750 mg Propranolol HCl (Propranolol Hcl 10 Mg Tab) 10 mg PO BID [facility] Stop: 10/29/22 12:59 Last Admin: 10/04/22 08:12 Dose: Not Given Tamsulosin HCl (Tamsulosin Hcl 0.4 Mg Cap) 0.4 mg PO HS [facility] Stop: 10/20/22 11:18 Last Admin: 10/03/22 20:30 Dose: 0.4 mg Mental Health & Subst Abuse Tx Therapist Name of Therapist: Mat Ch @ [facility] (?) Molding Line Operator Name of Molding Line Operator: Joann santiago [facility] Post Discharge Appointments Primary Care Physician Name Of Family Doctor/PCP: Lico De Jesus
[2022-10-04] MEDS: clonazePAM 0.25 MG TAB PO PRN (10:45)
[2022-10-04] MEDS: haloperidoL 5 MG TAB PO PRN (12:25)
[2022-10-04] MEDS ORDERED: HALOPERIDOL LACTATE 5 MG/ML 1 ML VIAL IM PRN (15:01)
[2022-10-04] MEDS: LORazepam 2 MG/1 ML VIAL IM PRN (15:13)
--- NOTE | 2022-10-04 15:31 | Hospitalist Progress Note ---
Date of Service October 04, 2022 Assessment & Plan (1) Schizoaffective disorder: Plan: Schizoaffective disorder/personality disorder/mood disorder, suboptimal following recent confinement of [facility] Appreciate psychiatry input and recommendation-on Depakote and oxcarbazepine for mood stabilization. Also on Klonopin, Haldol Per psychiatry, 303 hearing was held on 09/18 for involuntary admission which was granted. Patient is still requiring one-to-one sitter Medically stable for discharge Awaiting inpatient psychiatric placement. No new symptoms and the patient remains medically stable to be discharged Has been waiting to be placed in inpatient psychiatric unit Noted to be very anxious today and required 1 dose of oral Ativan of 1 mg We will continue with current medication Still he has not got any place to discharge Psychiatry has been following Dyspepsia Tums 500 mg 3 times daily as needed Denies any more epigastric discomfort (2) Seizure: Plan: Seizure after Zyprexa in the ED- had 3 seizures which were attributed to high- dose Zyprexa administration S/p intubation for airway protection but he self extubated 09/14/22 and has been stable since Currently on Depakote(ER 500mg in AM and 1000mg in PM) and oxcarbazepine (750mg BID), also for his psychiatric issues also on Klonopin 1 mg twice daily EEG: Potentially abnormal awake/drowsy EEG with evidence of left parietal slowing and sharps. No evidence of persistent seizure activity. Generalized tremors are likely not due to seizure Lyme serology negative No more seizures Neurology recommendations noted Seizure seems to be controlled with current medications Remains stable otherwise No more seizure activity Imaging studies: MRI brain: 1. No acute infarct or intracranial hemorrhage. 2. The temporal lobes are symmetric. 3. A few punctate foci of T2 hyperintensity seen within the periventricular and subcortical white matter of the supratentorial brain. These are nonspecific but greater than expected for age. Therefore, this could represent early microvascular ischemic change, migraines, Lyme's disease, or less likely a demyelinating disease or vasculitis. Generalized tremors-started on propranolol per psychiatry Has been getting propranolol 10 mg twice daily Has had anxiety symptoms and was given 0.5 mg Ativan orally x1 Required another dose of oral Ativan today Will await further psychiatric medications update Tremors are worse with concentration and during conversation Plan DVT proph: Lovenox Dispo-medically stable for inpatient psychiatric facility- ongoing bed search. Patient remains hospitalized on completed 303 involuntary commitment and cannot leave the hospital AMA. Admission and Anticipated Discharge Date Admission Date: September 14, 2022 Subjective 10/01/2022 The patient was seen and examined in medical floor He still requires one-to-one sitter but otherwise stable Has tremors when he is conversing or doing something which does not look like seizures Awaiting placement 10/02/2022 The patient was seen and examined in medical floor He remains stable and he still has significant shaking's especially when he is trying to communicate Has had some issues with dyspepsia and was given Tums for that He was very anxious today and required 1 dose of oral Ativan of 0.5 mg 10/03/2022 The patient was seen and examined in medical floor He remains stable with tremors involving the extremities at rest The tremors get worse with conversation Seems to be more anxious today 10/04/2022 The patient was seen and examined in medical floor He has been stable and having a lot of anxiety Tremors are worse whenever he tries to communicate Review of Systems Review of Systems: All systems reviewed and are unremarkable except as noted below Neurologic: Tremors involving the whole of the body Physical Exam Physical Exam: Lying in bed comfortably Constitutional: average body habitus; not ill appearing Eyes: PERRL, conjunctivae normal, anicteric sclerae ENMT: external ear and nose normal, oropharynx normal Neck: trachea midline, no thyromegaly Respiratory: no respiratory distress Auscultation: lungs clear to auscultation bilaterally Cardiovascular: Rate/Rhythm: regular rate and regular rhythm; not tachycardic Extremities: no edema Gastrointestinal (Abdomen): Inspection/Auscultation: normal bowel sounds; ab domen not distended Percussion/Palpation: abdomen soft; abdomen nontender Neurologic: normal touch/pain/proprioception, moves all extremities and + focal motor deficit Ongoing tremors involving the extremities Lymphatic: no cervical or axillary lymphadenopathy Results & Data Results & Data Vital Signs (Past 12 Hours) Vital Signs Temp Pulse Resp BP Pulse Ox O2 Del Method 10/04/22 07:27 36.8 C 76 16 113/74 95 Room Air Medications Administered Current Inpatient Medications Acetaminophen (Acetaminophen 500 Mg Tab) 500 mg PO Q6H PRN PRN Reason: pain/fever Stop: 10/15/22 19:55 Last Admin: 09/28/22 01:19 Dose: 500 mg Benztropine Mesylate (Benztropine Mesylate 1 Mg Tab) 1 mg PO BID [facility] Stop: 11/03/22 20:59 Calcium Carbonate (Calcium Carbonate 500 Mg Chewable Tab) 500 mg PO Q6H PRN PRN Reason: Indigestion Stop: 11/01/22 12:36 Clonazepam (Clonazepam 1 Mg Tab) 1 mg PO BID [facility] Stop: 10/24/22 20:59 Last Admin: 10/04/22 07:23 Dose: 1 mg Clonazepam (Clonazepam 0.25 Mg Tab) 0.25 mg PO BID PRN PRN Reason: agitation/anxiety Stop: 11/03/22 10:29 Last Admin: 10/04/22 10:45 Dose: 0.25 mg Divalproex Sodium (Divalproex Extended Release 500 Mg Tab) 500 mg PO QAM [facility] Stop: 10/26/22 08:59 Last Admin: 10/04/22 07:21 Dose: 500 mg Divalproex Sodium (Divalproex Extended Release 500 Mg Tab) 1,000 mg PO HS [facility] Stop: 10/25/22 20:59 Last Admin: 10/03/22 20:27 Dose: 1,000 mg Enoxaparin Sodium (Enoxaparin Inj 40 Mg/0.4 Ml Syr) 40 mg SQ HS [facility] Stop: 10/30/22 20:59 Last Admin: 10/03/22 20:38 Dose: Not Given Haloperidol (Haloperidol 5 Mg Tab) 5 mg PO BID PRN PRN Reason: Agitation/psychosis Stop: 10/24/22 10:19 Last Admin: 10/04/22 12:25 Dose: 5 mg Haloperidol (Haloperidol 5 Mg Tab) 5 mg PO QAM [facility] Stop: 11/01/22 08:59 Last Admin: 10/04/22 07:21 Dose: 5 mg Haloperidol (Haloperidol 5 Mg Tab) 10 mg PO HS [facility] Stop: 10/31/22 20:59 Last Admin: 10/03/22 20:28 Dose: 10 mg Haloperidol Lactate (Haloperidol Lactate 5 Mg/Ml 1 Ml Vial) 5 mg IM BID PRN PRN Reason: Agitation Stop: 11/03/22 15:00 Ibuprofen (Ibuprofen 200 Mg Tab) 400 mg PO TID PRN PRN Reason: pain, headache Stop: 10/16/22 11:47 Last Admin: 10/03/22 13:04 Dose: 400 mg Lorazepam (Lorazepam 2 Mg/1 Ml Vial) 2 mg IM BID PRN PRN Reason: Agitation Stop: 11/03/22 15:00 Last Admin: 10/04/22 15:13 Dose: 2 mg Ondansetron HCl (Ondansetron Inj 2 Mg/Ml 2 Ml Vial) 4 mg IV Q6H PRN PRN Reason: Nausea And Vomiting Stop: 10/16/22 12:04 Last Admin: 09/21/22 09:00 Dose: 4 mg Oxcarbazepine (Oxcarbazepine 150 Mg Tablet) 750 mg PO BID [facility] Stop: 10/14/22 23:44 Last Admin: 10/04/22 07:22 Dose: 750 mg Propranolol HCl (Propranolol Hcl 10 Mg Tab) 10 mg PO BID [facility] Stop: 10/29/22 12:59 Last Admin: 10/04/22 08:12 Dose: Not Given Tamsulosin HCl (Tamsulosin Hcl 0.4 Mg Cap) 0.4 mg PO [facility] Stop: 10/20/22 11:18 Last Admin: 10/03/22 20:30 Dose: 0.4 mg
[2022-10-04] MEDS: ENOXAPARIN INJ 40 MG/0.4 ML SYR SQ SCH (19:32)
[2022-10-04] MEDS: BENZTROPINE MESYLATE 1 MG TAB PO SCH (19:32)
[2022-10-04] MEDS: TAMSULOSIN HCL 0.4 MG CAP PO SCH (20:16)
[2022-10-05] MEDS: haloperidoL 5 MG TAB PO PRN ×2 (01:44→17:14)
[2022-10-05] MEDS: clonazePAM 0.25 MG TAB PO PRN (01:44)
[2022-10-05] MEDS: DIVALPROEX EXTENDED RELEASE 500 MG TAB PO SCH ×2 (10:01→20:25)
[2022-10-05] MEDS: OXcarbazepine 150 MG TABLET PO SCH ×2 (10:01→20:26)
[2022-10-05] MEDS: BENZTROPINE MESYLATE 1 MG TAB PO SCH ×2 (10:01→20:25)
[2022-10-05] MEDS: haloperidoL 5 MG TAB PO SCH ×2 (10:01→20:27)
[2022-10-05] MEDS: PROPRANOLOL HCL 10 MG TAB PO SCH ×2 (10:02→20:24)
[2022-10-05] MEDS: clonazePAM 1 MG TAB PO SCH ×2 (10:06→20:31)
--- NOTE | 2022-10-05 10:32 | Psychiatric Progress Note ---
Date of Service October 05, 2022 Impression / Recommendations Impression 47 y/o man with schizoaffective disorder, bipolar type who's been off his medication and who recently had seizures in the ED in the context of having been off his high-dose anticonvulsants and benzodiazepine and having been administered olanzapine. Has been improving since restarting his medications with no further seizures and remains medically stable. On 303 commitment awaiting inpatient psychiatric placement. Bilateral hand and foot tremor could represent Depakote side effect though seems to have a somewhat volitional component vs tardive dyskinesia (has been present since at least his most recent hospitalization at the [facility]). Could consider restarting clozapine, which he was previously stabilized on, though he may also benefit more from an antipsychotic option with an MURPHY, such as haldol decanoate, as he has a history of medication non-adherence. 10/05/2022: Symptoms of priscila lessening slightly but ongoing psychosis with periods of disorganization, disrobing and increased irritability and anxiety yesterday afternoon likely due to news of 304 hearing. Participated for 30 minutes in 304 hearing, 304 commitment granted. The patient remains hospitalized on a completed 304 involuntary commitment. This patient must remain on safety precautions with a 1-on-1 and is unable to leave the hospital AMA. (1) Schizoaffective disorder, bipolar type: Plan 10/05/2022: * Ongoing bed search. * Requires 1-on-1 due to 304 commitment, cannot leave AMA * Depakote ER 500mg qAM and 1000mg HS * Klonopin 1mg BID * Oxcarbazepine 750mg BID * Haldol 5mg qAM and 10mg HS * Haldol 5mg BID prn po for psychosis/agitation * Propranolol 10mg BID po * Now on a 304 commitment 10/04/2022: * Ongoing bed search. * Requires 1-on-1 due to 303 commitment, cannot leave AMA * Depakote ER 500mg qAM and 1000mg HS * Klonopin 1mg BID * Oxcarbazepine 750mg BID * Haldol 5mg qAM and 10mg HS * Haldol 5mg BID prn po for psychosis/agitation * Propranolol 10mg BID po * 304 commitment hearing scheduled for tomorrow morning 10/03/2022: * Ongoing bed search. * Requires 1-on-1 due to 303 commitment, cannot leave AMA * Depakote ER 500mg qAM and 1000mg HS * Klonopin 1mg BID * Oxcarbazepine 750mg BID * Haldol to 5mg qAM and 10mg HS * Haldol 5mg BID prn po for psychosis/agitation * Propranolol 10mg BID po * Will begin process for 304 commitment tomorrow 10/02/2022: * Ongoing bed search. * Requires 1-on-1 due to 303 commitment, cannot leave AMA * Depakote ER 500mg qAM and 1000mg HS * Klonopin 1mg BID * Oxcarbazepine 750mg BID * Haldol to 5mg qAM and 10mg HS * Haldol 5mg BID prn po for psychosis/agitation * Propranolol 10mg BID po 10/01/2022: * Ongoing bed search. * Requires 1-on-1 due to 303 commitment, cannot leave AMA * Depakote ER 500mg qAM and 1000mg HS * Klonopin 1mg BID * Oxcarbazepine 750mg BID * Increase Haldol to 5mg qAM and 10mg HS * Haldol 5mg BID prn po for psychosis/agitation * Propranolol 10mg BID po 09/30/2022: * Ongoing bed search. * Requires 1-on-1 due to 303 commitment, cannot leave AMA * Depakote ER 500mg qAM and 1000mg HS * Klonopin 1mg BID * Oxcarbazepine 750mg BID * Haldol 5mg BID po * Haldol 5mg BID prn po for psychosis/agitation * Propranolol 10mg BID po 09/29/2022: * Ongoing bed search. * Requires 1-on-1 due to 303 commitment, cannot leave AMA * Depakote ER 500mg qAM and 1000mg HS * Klonopin 1mg BID * Oxcarbazepine 750mg BID * Haldol 5mg BID po * Haldol 5mg BID prn po for psychosis/agitation * Propranolol 10mg BID po 09/28/2022: * Ongoing bed search. * Requires 1-on-1 due to 303 commitment, cannot leave AMA * Depakote ER 500mg qAM and 1000mg HS * Klonopin to 1mg BID * Oxcarbazepine 750mg BID * Schedule Haldol 5mg BID po * Haldol 5mg BID prn po for psychosis/agitation 09/27/2022: * Ongoing bed search. * Requires 1-on-1 due to 303 commitment, cannot leave AMA * Depakote ER 500mg qAM and 1000mg HS * Klonopin to 1mg BID * Oxcarbazepine 750mg BID * Haldol 5mg TID prn po for psychosis/agitation 09/26/2022: * Ongoing bed search. * Requires 1-on-1 due to 303 commitment, cannot leave AMA * Depakote ER 500mg qAM and 1000mg HS * Klonopin to 1mg BID * Oxcarbazepine 750mg BID * Haldol 5mg TID prn po for psychosis/agitation 09/25/2022: * Ongoing bed search. * Requires 1-on-1 due to 303 commitment, cannot leave AMA * Increase to Depakote ER 500mg qAM and Depakote ER 1000mg HS * Continue Klonopin to 1mg BID * Continue Oxcarbazepine 750mg BID * Haldol 5mg TID prn po for psychosis/agitation 09/24/2022: * Ongoing bed search. * Requires 1-on-1 due to 303 commitment, cannot leave AMA * Continue with Depakote ER 500mg BID, likely increase again in 2-3 days * Increase Klonopin to 1mg BID * Continue Oxcarbazepine 750mg BID * Haldol 5mg TID prn po for psychosis/agitation 09/23/2022: * Ongoing bed search. * Requires 1-on-1 due to 303 commitment, cannot leave AMA * Increase Depakote ER to 500mg BID * Continue Klonopin 1mg daily, Oxcarbazepine 750mg BID * Haldol 5mg BID prn po for psychosis/agitation 09/22/2022: Requires psychiatric admission. Bed search continues. Please do consider titrating divalproex. It would be appropriate to check trough levels of valproate and oxcarbazepine to assess whether they're in the therapeutic range. 09/21/2022: Requires psychiatric admission. Bed search is underway. 09/20/2022: Based on pt's presentation today, I can only recommend staying the current course in terms of psychiatric treatment. He will still require psychiatric admission once medically stable. 09/19/2022: By history, pt has required much higher divalproex ER dose (3,000 mg/day), along with oxcarbazepine, to suppress priscila and seizures. If he can't tolerate whole divalproex ER tablets, divalproex or valproic acid could be used with a target dose of 2,000 mg/day. In either case, dose should be titrated to a target blood level in the range of 85-125 g/mL. 09/18/2022: Pt is now subject to a section 303 involuntary commitment. He must remain in the hospital on 1:1 observation until he's determined to be medically stable. At t hat time, a psychiatric bed search will need to be undertaken. Consider more aggressive titration of divalproex. 09/17/2022: Continue current medication regimen. Pt will require a hearing to enable continuing hospitalization (because he certainly can't be discharged to home). 09/16/2022: Since pt clearly needs both antiepileptic and antimanic pharmacotherapy, it would seem eminently reasonable to resume the divalproex and oxcarbazepine he'd previously been taking. I agree with your decision not to resume the 3,000mg/day divalproex ER and 1,200 mg/day oxcarbazepine doses right away, but would suggest titrating as aggressively as tolerated. Note that divalproex ER is not equally bioavailable as IR divalproex. If it's necessary to crush tablets or use any dosage form other than ER, total dose may need to be 20-25% lower than with the ER form. With divalproex, the target antimanic range of blood level is 85-125 g/mL (higher than the typical therapeutic range for seizure control of 50-100 g/mL) and dose should be titrated based on blood level. For oxcarbazepine there is fairly scant published data about therapeutic blood level for priscila, but for carbamazepine it's fairly clear that the target range is the same as for seizure control, so oxcarbazepine dose should be titrated to usual antiepileptic blood level. Pt was on fairly high-dose (4 mg/day) clonazepam until some unknown time prior to admission, and it's possible that some of the waxing and waning cognition we're seeing could represent a degree of benzodiazepine withdrawal. It's also obviously antiepileptic and wouldn't require titration via blood level, so I recommend resuming 2 mg BID. If pt won't accept oral medication, clonazepam is essentially equipotent with lorazepam, though doses of the latter would need to be divided due to shorter half-life (e.g., 1 mg QID). If pt requires parenteral antipsychotic medication due to potentially dangerous behavior appearing to arise from psychosis, haloperidol would appear to be the safest option (administeredwithoutdiphenhydramine due to the reported intolerance). This could be given as haloperidol 5 mg IM and lorazepam 2 mg IM q8 hr PRN psychosis. An administrative decision has previously been made that pt is not a candidate for admission to the psychiatric unit at [facility]. He certainly will require psychiatric hospitalization. A bed search is underway, but if he is still here on Sunday he will need a commitment hearing if he is to remain in the hospital involuntarily any longer. With respect to his involuntary status, it is my opinion that at present Mr. Becker does not have the capacity to make rational and informed decisions about healthcare so, even if he were to agree to remain in the hospital, we would not be able to use such agreement as informed consent and will continue to need to rely on the legal mechanisms for involuntary admission. Risk Factors Assessment Male: Yes : Yes Do You Have Access To A Gun?: No Health Problems: Yes Mental Health Diagnoses: Yes Previous Psychiatric Hospitalization: Yes Protective Factors Assessment Responsible for Young Children: No Employed: No Stable Relationships: No Interval History Identifying Information ROGER BECKER is a 47-year-old male with a history of schizoaffective disorder, admitted on 09/14/2022 for seizures. Consult is by the hospitalist service for psychosis. Chief Complaint sleeping Subjective Subjective Patient was seen & assessed and interval progress reviewed. Multiple episodes of increased anxiety yesterday and attempted to run down the tripathi in the afternoon but responded to redirection back to his room. 304 commitment hearing held this morning which he participated in. On attempt to see him later in the afternoon he was sleeping and not felt therapeutic to wake him. Physical Exam Psychiatric Apperance: + disheveled Eye Contact: + poor eye contact Affect: + labile affect Insight: + severely impaired insight Judgment: + limited judgement Vital Signs (Past 24 Hours) Last Vital Signs Temp 36.5 C 10/05/22 07:13 Pulse 74 10/05/22 07:13 Resp 16 10/05/22 07:13 BP 102/67 10/05/22 07:13 Pulse Ox 95 10/05/22 07:13 O2 Del Method Room Air 10/05/22 07:13 O2 Flow Rate 2 09/15/22 21:48 FiO2 30 09/14/22 22:35 Results & Data ([facility]) Current Inpatient Medications Current Inpatient Medications: Current Inpatient Medications Acetaminophen (Acetaminophen 500 Mg Tab) 500 mg PO Q6H PRN PRN Reason: pain/fever Stop: 10/15/22 19:55 Last Admin: 09/28/22 01:19 Dose: 500 mg Benztropine Mesylate (Benztropine Mesylate 1 Mg Tab) 1 mg PO BID [facility] Stop: 11/03/22 20:59 Last Admin: 10/05/22 10:01 Dose: 1 mg Calcium Carbonate (Calcium Carbonate 500 Mg Chewable Tab) 500 mg PO Q6H PRN PRN Reason: Indigestion Stop: 11/01/22 12:36 Clonazepam (Clonazepam 1 Mg Tab) 1 mg PO BID [facility] Stop: 10/24/22 20:59 Last Admin: 10/05/22 10:06 Dose: 1 mg Clonazepam (Clonazepam 0.25 Mg Tab) 0.25 mg PO BID PRN PRN Reason: agitation/anxiety Stop: 11/03/22 10:29 Last Admin: 10/05/22 01:44 Dose: 0.25 mg Divalproex Sodium (Divalproex Extended Release 500 Mg Tab) 500 mg PO QAM [facility] Stop: 10/26/22 08:59 Last Admin: 10/05/22 10:01 Dose: 500 mg Divalproex Sodium (Divalproex Extended Release 500 Mg Tab) 1,000 mg PO HS [facility] Stop: 10/25/22 20:59 Last Admin: 10/04/22 20:16 Dose: 1,000 mg Enoxaparin Sodium (Enoxaparin Inj 40 Mg/0.4 Ml Syr) 40 mg SQ HS [facility] Stop: 10/30/22 20:59 Last Admin: 10/04/22 19:32 Dose: 40 mg Haloperidol (Haloperidol 5 Mg Tab) 5 mg PO BID PRN PRN Reason: Agitation/psychosis Stop: 10/24/22 10:19 Last Admin: 10/05/22 01:44 Dose: 5 mg Haloperidol (Haloperidol 5 Mg Tab) 5 mg PO QAM [facility] Stop: 11/01/22 08:59 Last Admin: 10/05/22 10:01 Dose: 5 mg Haloperidol (Haloperidol 5 Mg Tab) 10 mg PO HS [facility] Stop: 10/31/22 20:59 Last Admin: 10/04/22 19:32 Dose: 10 mg Haloperidol Lactate (Haloperidol Lactate 5 Mg/Ml 1 Ml Vial) 5 mg IM BID PRN PRN Reason: Agitation Stop: 11/03/22 15:00 Ibuprofen (Ibuprofen 200 Mg Tab) 400 mg PO TID PRN PRN Reason: pain, headache Stop: 10/16/22 11:47 Last Admin: 10/03/22 13:04 Dose: 400 mg Lorazepam (Lorazepam 2 Mg/1 Ml Vial) 2 mg IM BID PRN PRN Reason: Agitation Stop: 11/03/22 15:00 Last Admin: 10/04/22 15:13 Dose: 2 mg Ondansetron HCl (Ondansetron Inj 2 Mg/Ml 2 Ml Vial) 4 mg IV Q6H PRN PRN Reason: Nausea And Vomiting Stop: 10/16/22 12:04 Last Admin: 09/21/22 09:00 Dose: 4 mg Oxcarbazepine (Oxcarbazepine 150 Mg Tablet) 750 mg PO BID [facility] Stop: 10/14/22 23:44 Last Admin: 10/05/22 10:01 Dose: 750 mg Propranolol HCl (Propranolol Hcl 10 Mg Tab) 10 mg PO BID [facility] Stop: 10/29/22 12:59 Last Admin: 10/05/22 10:02 Dose: 10 mg Tamsulosin HCl (Tamsulosin Hcl 0.4 Mg Cap) 0.4 mg PO HS [facility] Stop: 10/20/22 11:18 Last Admin: 10/04/22 20:16 Dose: 0.4 mg Mental Health & Subst Abuse Tx Therapist Name of Therapist: Mat Ch @ [facility] (?) 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
--- NOTE | 2022-10-05 14:40 | Hospitalist Progress Note ---
Date of Service October 05, 2022 Assessment & Plan (1) Schizoaffective disorder: Plan: Schizoaffective disorder/personality disorder/mood disorder, suboptimal following recent confinement of [facility] Appreciate psychiatry input and recommendation-on Depakote and oxcarbazepine for mood stabilization. Also on Klonopin, Haldol Per psychiatry, 303 hearing was held on 09/18 for involuntary admission which was granted. Patient is still requiring one-to-one sitter Medically stable for discharge Awaiting inpatient psychiatric placement. No new symptoms and the patient remains medically stable to be discharged Has been waiting to be placed in inpatient psychiatric unit Noted to be very anxious today and required 1 dose of oral Ativan of 1 mg We will continue with current medication Still he has not got any place to discharge Psychiatry has been following No more anxiety but he still has frequent shakes involving the extremities Has been awaiting placement in a psychiatric facility Dyspepsia Tums 500 mg 3 times daily as needed Denies any more epigastric discomfort Denies any more dyspeptic symptoms (2) Seizure: Plan: Seizure after Zyprexa in the ED- had 3 seizures which were attributed to high- dose Zyprexa administration S/p intubation for airway protection but he self extubated 09/14/22 and has been stable since Currently on Depakote(ER 500mg in AM and 1000mg in PM) and oxcarbazepine (750mg BID), also for his psychiatric issues also on Klonopin 1 mg twice daily EEG: Potentially abnormal awake/drowsy EEG with evidence of left parietal slowing and sharps. No evidence of persistent seizure activity. Generalized tremors are likely not due to seizure Lyme serology negative No more seizures Neurology recommendations noted Seizure seems to be controlled with current medications Remains stable otherwise No more seizure activity Imaging studies: MRI brain: 1. No acute infarct or intracranial hemorrhage. 2. The temporal lobes are symmetric. 3. A few punctate foci of T2 hyperintensity seen within the periventricular and subcortical white matter of the supratentorial brain. These are nonspecific but greater than expected for age. Therefore, this could represent early microvascular ischemic change, migraines, Lyme's disease, or less likely a demyelinating disease or vasculitis. Generalized tremors-started on propranolol per psychiatry Has been getting propranolol 10 mg twice daily Has had anxiety symptoms and was given 0.5 mg Ativan orally x1 Required another dose of oral Ativan today Will await further psychiatric medications update Tremors are worse with concentration and during conversation Persisting generalized tremors Plan DVT proph: [place]en[facility] Dispo-medically stable for inpatient psychiatric facility- ongoing bed search. Patient remains hospitalized on completed 303 involuntary commitment and cannot leave the hospital AMA. Admission and Anticipated Discharge Date Admission Date: September 14, 2022 Subjective 10/01/2022 The patient was seen and examined in medical floor He still requires one-to-one sitter but otherwise stable Has tremors when he is conversing or doing something which does not look like seizures Awaiting placement 10/02/2022 The patient was seen and examined in medical floor He remains stable and he still has significant shaking's especially when he is trying to communicate Has had some issues with dyspepsia and was given Tums for that He was very anxious today and required 1 dose of oral Ativan of 0.5 mg 10/03/2022 The patient was seen and examined in medical floor He remains stable with tremors involving the extremities at rest The tremors get worse with conversation Seems to be more anxious today 10/04/2022 The patient was seen and examined in medical floor He has been stable and having a lot of anxiety Tremors are worse whenever he tries to communicate 10/05/2022 The patient was seen and examined in medical floor He has been stable and waiting to go to inpatient psychiatric facility Still has problems with tremors involving the extremities specially when awake and concentrating with anything Denies any other symptoms Review of Systems Review of Systems: All systems reviewed and are unremarkable except as noted below Neurologic: Tremors involving the whole of the body Physical Exam Physical Exam: Lying in bed comfortably with ongoing tremors involving the extremities Constitutional: average body habitus; not ill appearing Eyes: PERRL, conjunctivae normal, anicteric sclerae ENMT: external ear and nose normal, oropharynx normal Neck: trachea midline, no thyromegaly Respiratory: no respiratory distress Auscultation: lungs clear to auscultation bilaterally Cardiovascular: Rate/Rhythm: regular rate and regular rhythm; not tachycardic Extremities: no edema Gastrointestinal (Abdomen): Inspection/Auscultation: normal bowel sounds; abdomen not distended Percussion/Palpation: abdomen soft; abdomen nontender Musculoskeletal: No acute arthritis involving any of the joint Neurologic: normal touch/pain/proprioception, moves all extremities and + focal motor deficit Lymphatic: no cervical or axillary lymphadenopathy Results & Data Results & Data Vital Signs (Past 12 Hours) Vital Signs Temp Pulse Resp BP Pulse Ox O2 Del Method 10/05/22 07:13 36.5 C 74 16 102/67 95 Room Air Medications Administered Current Inpatient Medications Acetaminophen (Acetaminophen 500 Mg Tab) 500 mg PO Q6H PRN PRN Reason: pain/fever Stop: 10/15/22 19:55 Last Admin: 09/28/22 01:19 Dose: 500 mg Benztropine Mesylate (Benztropine Mesylate 1 Mg Tab) 1 mg PO BID [facility] Stop: 11/03/22 20:59 Last Admin: 10/05/22 10:01 Dose: 1 mg Calcium Carbonate (Calcium Carbonate 500 Mg Chewable Tab) 500 mg PO Q6H PRN PRN Reason: Indigestion Stop: 11/01/22 12:36 Clonazepam (Clonazepam 1 Mg Tab) 1 mg PO BID [facility] Stop: 10/24/22 20:59 Last Admin: 10/05/22 10:06 Dose: 1 mg Clonazepam (Clonazepam 0.25 Mg Tab) 0.25 mg PO BID PRN PRN Reason: agitation/anxiety Stop: 11/03/22 10:29 Last Admin: 10/05/22 01:44 Dose: 0.25 mg Divalproex Sodium (Divalproex Extended Release 500 Mg Tab) 500 mg PO QAM [facility] Stop: 10/26/22 08:59 Last Admin: 10/05/22 10:01 Dose: 500 mg Divalproex Sodium (Divalproex Extended Release 500 Mg Tab) 1,000 mg PO HS [facility] Stop: 10/25/22 20:59 Last Admin: 10/04/22 20:16 Dose: 1,000 mg Enoxaparin Sodium (Enoxaparin Inj 40 Mg/0.4 Ml Syr) 40 mg SQ HS [facility] Stop: 10/30/22 20:59 Last Admin: 10/04/22 19:32 Dose: 40 mg Haloperidol (Haloperidol 5 Mg Tab) 5 mg PO BID PRN PRN Reason: Agitation/psychosis Stop: 10/24/22 10:19 Last Admin: 10/05/22 01:44 Dose: 5 mg Haloperidol (Haloperidol 5 Mg Tab) 5 mg PO QAM [facility] Stop: 11/01/22 08:59 Last Admin: 10/05/22 10:01 Dose: 5 mg Haloperidol (Haloperidol 5 Mg Tab) 10 mg PO HS [facility] Stop: 10/31/22 20:59 Last Admin: 10/04/22 19:32 Dose: 10 mg Haloperidol Lactate (Haloperidol Lactate 5 Mg/Ml 1 Ml Vial) 5 mg IM BID PRN PRN Reason: Agitation Stop: 11/03/22 15:00 Ibuprofen (Ibuprofen 200 Mg Tab) 400 mg PO TID PRN PRN Reason: pain, headache Stop: 10/16/22 11:47 Last Admin: 10/03/22 13:04 Dose: 400 mg Lorazepam (Lorazepam 2 Mg/1 Ml Vial) 2 mg IM BID PRN PRN Reason: Agitation Stop: 11/03/22 15:00 Last Admin: 10/04/22 15:13 Dose: 2 mg Ondansetron HCl (Ondansetron Inj 2 Mg/Ml 2 Ml Vial) 4 mg IV Q6H PRN PRN Reason: Nausea And Vomiting Stop: 10/16/22 12:04 Last Admin: 09/21/22 09:00 Dose: 4 mg Oxcarbazepine (Oxcarbazepine 150 Mg Tablet) 750 mg PO BID [facility] Stop: 10/14/22 23:44 Last Admin: 10/05/22 10:01 Dose: 750 mg Propranolol HCl (Propranolol Hcl 10 Mg Tab) 10 mg PO BID [facility] Stop: 10/29/22 12:59 Last Admin: 10/05/22 10:02 Dose: 10 mg Tamsulosin HCl (Tamsulosin Hcl 0.4 Mg Cap) 0.4 mg PO HS [facility] Stop: 10/20/22 11:18 Last Admin: 10/04/22 20:16 Dose: 0.4 mg
[2022-10-05] MEDS: TAMSULOSIN HCL 0.4 MG CAP PO SCH (20:27)
[2022-10-05] MEDS: ENOXAPARIN INJ 40 MG/0.4 ML SYR SQ SCH (20:29)
[2022-10-06] MEDS: MELATONIN 3 MG TAB PO PRN (01:10)
[2022-10-06] MEDS: OXcarbazepine 150 MG TABLET PO SCH ×2 (08:28→20:33)
[2022-10-06] MEDS: BENZTROPINE MESYLATE 1 MG TAB PO SCH ×2 (08:29→20:31)
[2022-10-06] MEDS: PROPRANOLOL HCL 10 MG TAB PO SCH (08:29)
[2022-10-06] MEDS: DIVALPROEX EXTENDED RELEASE 500 MG TAB PO SCH ×2 (08:29→20:32)
[2022-10-06] MEDS: haloperidoL 5 MG TAB PO SCH ×2 (08:30→20:32)
[2022-10-06] MEDS: clonazePAM 1 MG TAB PO SCH ×2 (08:31→20:38)
[2022-10-06] MEDS ORDERED: PROPRANOLOL HCL 20 MG TAB PO ONE (12:24)
--- NOTE | 2022-10-06 12:37 | Psychiatric Progress Note ---
Date of Service October 06, 2022 Impression / Recommendations Impression Reviewed care by Dr. Braun in italics. 47 y/o man with schizoaffective disorder, bipolar type who's been off his medication and who recently had seizures in the ED in the context of having been off his high-dose anticonvulsants and benzodiazepine and having been administered olanzapine. Has been improving since restarting his medications with no further seizures and remains medically stable. On 303 commitment awaiting inpatient psychiatric placement. Bilateral hand and foot tremor could represent Depakote side effect though seems to have a somewhat volitional component vs tardive dyskinesia (has been present since at least his most recent hospitalization at the [facility]). Could consider restarting clozapine, which he was previously stabilized on, though he may also benefit more from an antipsyc hotic option with an MURPHY, such as haldol decanoate, as he has a history of medication non-adherence. 10/05/2022: Symptoms of priscila lessening slightly but ongoing psychosis with periods of disorganization, disrobing and increased irritability and anxiety yesterday afternoon likely due to news of 304 hearing. Participated for 30 minutes in 304 hearing, 304 commitment granted. The patient remains hospitalized on a completed 304 involuntary commitment. This patient must remain on safety precautions with a 1-on-1 and is unable to leave the hospital AMA. 10/06/22: Improving (1) Schizoaffective disorder, bipolar type: Plan continue current meds but increase propranolol for presumed side effects, one dose of Propranolol 20 mg now then increase BID dosing to am and 5 pm for better coverage. Will hopefully require less Haldol prn over time. Dr. Herman updated on bed search liaison to work with rec therapist on providing some therapeutic rec materials. Suicide Risk Level Suicide Risk Level: Low (q15 min observation checks) (any risk is due to disorganized behavior rather than suicidality as he consistently denies SI, remains on 1-on-1 due to being on medical floor and on 303 commitment) Risk Factors Assessment Male: Yes : Yes Do You Have Access To A Gun?: No Health Problems: Yes Mental Health Diagnoses: Yes Previous Psychiatric Hospitalization: Yes Protective Factors Assessment Responsible for Young Children: No Employed: No Stable Relationships: No Interval History Identifying Information ROGER SCHMIDT is a 47-year-old male with a history of schizoaffective disorder, admitted on 09/14/2022 for seizures. Consult is by the hospitalist service for psychosis. 304 commitment as of 10/05/22. Chief Complaint "I'm good, how are you. I think I have Parkinsons but Cogentin doesn't help." Review of Systems Notes patient denies tripathi, denies racing thoughts, denies SI, no physical complaints. Subjective Subjective Patient was seen & assessed and interval progress reviewed with nursing. Bed search ongoing. Thoughts are clearer. Hypertalkative. Shakes his upper and lower extremities, subjective akathisia but stays in bed. Per Dr. Herman tremor actually appears somewhat improved and he was walking halls with him. Physical Exam Psychiatric Orientation: alert and oriented x 3 Apperance: appropriately dressed and appropriately groomed Eye Contact: good eye contact Motor Behavior: + akathisia (vs tremor, some volitional component) Speech: + abnormal rate/rhythm/volume of speech (hyperverbal) Affect: + elated affect Mood: no depressed mood Thought Process: + tangential thought process Thought Content: reality based without delusions Suicidal Thoughts: denies suicidal thoughts Homicidal Thoughts: denies homicidal thoughts Hallucinations: no auditory hallucinations and no visual hallucinations Cognition: language grossly intact; + attention not intact Estimated Intelligence: consistent with education level Insight: + limited insight Judgment: + limited judgement Vital Signs (Past 24 Hours) Last Vital Signs Temp 36.8 C 10/06/22 07:09 Pulse 68 10/06/22 07:09 Resp 18 10/06/22 07:09 BP 131/80 10/06/22 07:09 Pulse Ox 96 10/06/22 07:09 O2 Del Method Room Air 10/06/22 07:09 O2 Flow Rate 2 09/15/22 21:48 FiO2 30 09/14/22 22:35 Results & Data ([facility]) Current Inpatient Medications Current Inpatient Medications: Current Inpatient Medications Acetaminophen (Acetaminophen 500 Mg Tab) 500 mg PO Q6H PRN PRN Reason: pain/fever Stop: 10/15/22 19:55 Last Admin: 09/28/22 01:19 Dose: 500 mg Benztropine Mesylate (Benztropine Mesylate 1 Mg Tab) 1 mg PO BID [facility] Stop: 11/03/22 20:59 Last Admin: 10/06/22 08:29 Dose: 1 mg Calcium Carbonate (Calcium Carbonate 500 Mg Chewable Tab) 500 mg PO Q6H PRN PRN Reason: Indigestion Stop: 11/01/22 12:36 Clonazepam (Clonazepam 1 Mg Tab) 1 mg PO BID [facility] Stop: 10/24/22 20:59 Last Admin: 10/06/22 08:31 Dose: 1 mg Clonazepam (Clonazepam 0.25 Mg Tab) 0.25 mg PO BID PRN PRN Reason: agitation/anxiety Stop: 11/03/22 10:29 Last Admin: 10/05/22 01:44 Dose: 0.25 mg Divalproex Sodium (Divalproex Extended Release 500 Mg Tab) [facility] Stop: 10/26/22 08:59 Last Admin: 10/06/22 08:29 Dose: 500 mg Divalproex Sodium (Divalproex Extended Release 500 Mg Tab) 1,000 mg PO [facility] Stop: 10/25/22 20:59 Last Admin: 10/05/22 20:25 Dose: 1,000 mg Enoxaparin Sodium (Enoxaparin Inj 40 Mg/0.4 Ml Syr) 40 mg SQ [facility] Stop: 10/30/22 20:59 Last Admin: 10/05/22 20:29 Dose: 40 mg Haloperidol (Haloperidol 5 Mg Tab) 5 mg PO BID PRN PRN Reason: Agitation/psychosis Stop: 10/24/22 10:19 Last Admin: 10/05/22 17:14 Dose: 5 mg Haloperidol (Haloperidol 5 Mg Tab) 5 [facility] Stop: 11/01/22 08:59 Last Admin: 10/06/22 08:30 Dose: 5 mg Haloperidol (Haloperidol 5 Mg Tab) 10 mg PO [facility] Stop: 10/31/22 20:59 Last Admin: 10/05/22 20:27 Dose: 10 mg Haloperidol Lactate (Haloperidol Lactate 5 Mg/Ml 1 Ml Vial) 5 mg IM BID PRN PRN Reason: Agitation Stop: 11/03/22 15:00 Ibuprofen (Ibuprofen 200 Mg Tab) 400 mg PO TID PRN PRN Reason: pain, headache Stop: 10/16/22 11:47 Last Admin: 10/03/22 13:04 Dose: 400 mg Lorazepam (Lorazepam 2 Mg/1 Ml Vial) 2 mg IM BID PRN PRN Reason: Agitation Stop: 11/03/22 15:00 Last Admin: 10/04/22 15:13 Dose: 2 mg Melatonin (Melatonin 3 Mg Tab) 3 mg PO HS PRN PRN Reason: Sleep Stop: 11/05/22 01:00 Last Admin: 10/06/22 01:10 Dose: 3 mg Ondansetron HCl (Ondansetron Inj 2 Mg/Ml 2 Ml Vial) 4 mg IV Q6H PRN PRN Reason: Nausea And Vomiting Stop: 10/16/22 12:04 Last Admin: 09/21/22 09:00 Dose: 4 mg Oxcarbazepine (Oxcarbazepine 150 Mg Tablet) 750 mg PO BID [facility] Stop: 10/14/22 23:44 Last Admin: 10/06/22 08:28 Dose: 750 mg Propranolol HCl (Propranolol Hcl 20 Mg Tab) 20 mg PO ONE ONE Stop: 10/06/22 12:25 Tamsulosin HCl (Tamsulosin Hcl 0.4 Mg Cap) 0.4 mg PO HS [facility] Stop: 10/20/22 11:18 Last Admin: 10/05/22 20:27 Dose: 0.4 mg Mental Health & Subst Abuse Tx Therapist Name of Therapist: Mat Ch @ [facility] (?) Photogrammetric Technician Name of Photogrammetric Technician: [facility] Post Discharge Appointments Primary Care Physician Name Of Family Doctor/PCP: Lico De Jesus
--- NOTE | 2022-10-06 14:49 | Hospitalist Progress Note ---
Date of Service October 06, 2022 Assessment & Plan (1) Schizoaffective disorder: Plan: Schizoaffective disorder/personality disorder/mood disorder, suboptimal following recent confinement of [facility] Appreciate psychiatry input and recommendation-on Depakote and oxcarbazepine for mood stabilization. Also on Klonopin, Haldol Per psychiatry, 303 hearing was held on 09/18 for involuntary admission which was granted. Patient is still requiring one-to-one sitter Medically stable for discharge Awaiting inpatient psychiatric placement. No new symptoms and the patient remains medically stable to be discharged Has been waiting to be placed in inpatient psychiatric unit Noted to be very anxious today and required 1 dose of oral Ativan of 1 mg We will continue with current medication Still he has not got any place to discharge Psychiatry has been following No more anxiety but he still has frequent shakes involving the extremities Has been awaiting placement in a psychiatric facility Remains stable without any significant symptoms Dyspepsia Tums 500 mg 3 times daily as needed Denies any more epigastric discomfort Denies any more dyspeptic symptoms (2) Seizure: Plan: Seizure after Zyprexa in the ED- had 3 seizures which were attributed to high- dose Zyprexa administration S/p intubation for airway protection but he self extubated 09/14/22 and has been stable since Currently on Depakote(ER 500mg in AM and 1000mg in PM) and oxcarbazepine (750mg BID), also for his psychiatric issues also on Klonopin 1 mg twice daily EEG: Potentially abnormal awake/drowsy EEG with evidence of left parietal slowing and sharps. No evidence of persistent seizure activity. Generalized tremors are likely not due to seizure Lyme serology negative No more seizures Neurology recommendations noted Seizure seems to be controlled with current medications Remains stable otherwise No more seizure activity Imaging studies: MRI brain: 1. No acute infarct or intracranial hemorrhage. 2. The temporal lobes are symmetric. 3. A few punctate foci of T2 hyperintensity seen within the periventricular and subcortical white matter of the supratentorial brain. These are nonspecific but greater than expected for age. Therefore, this could represent early microvascular ischemic change, migraines, Lyme's disease, or less likely a demy elinating disease or vasculitis. Generalized tremors-started on propranolol per psychiatry Has been getting propranolol 10 mg twice daily Has had anxiety symptoms and was given 0.5 mg Ativan orally x1 Required another dose of oral Ativan today Will await further psychiatric medications update Tremors are worse with concentration and during conversation Persisting generalized tremors-seems to be much better now without any severe anxiety Propranolol has been increased to 20 mg twice daily Plan DVT proph: Lovenox Dispo-medically stable for inpatient psychiatric facility- ongoing bed search. Patient remains hospitalized on completed 303 involuntary commitment and cannot leave the hospital AMA. Awaiting placement Admission and Anticipated Discharge Date Admission Date: September 14, 2022 Subjective 10/01/2022 The patient was seen and examined in medical floor He still requires one-to-one sitter but otherwise stable Has tremors when he is conversing or doing something which does not look like seizures Awaiting placement 10/02/2022 The patient was seen and examined in medical floor He remains stable and he still has significant shaking's especially when he is trying to communicate Has had some issues with dyspepsia and was given Tums for that He was very anxious today and required 1 dose of oral Ativan of 0.5 mg 10/03/2022 The patient was seen and examined in medical floor He remains stable with tremors involving the extremities at rest The tremors get worse with conversation Seems to be more anxious today 10/04/2022 The patient was seen and examined in medical floor He has been stable and having a lot of anxiety Tremors are worse whenever he tries to communicate 10/05/2022 The patient was seen and examined in medical floor He has been stable and waiting to go to inpatient psychiatric facility Still has problems with tremors involving the extremities specially when awake and concentrating with anything Denies any other symptoms 10/06/2022 The patient was seen and examined in medical floor He has been really stable with less tremors Denies any symptoms and has been waiting to go to inpatient psychiatric rehab Review of Systems Review of Systems: All systems reviewed and are unremarkable except as noted below Neurologic: Tremors involving the whole of the body Physical Exam Physical Exam: Lying in bed comfortably with ongoing tremors involving the extremities Constitutional: average body habitus; not ill appearing Eyes: PERRL, conjunctivae normal, anicteric sclerae ENMT: external ear and nose normal, oropharynx normal Neck: trachea midline, no thyromegaly Respiratory: no respiratory distress Auscultation: lungs clear to auscultation bilaterally Cardiovascular: Rate/Rhythm: regular rate and regular rhythm; not tachycardic Extremities: no edema Gastrointestinal (Abdomen): Inspection/Auscultation: normal bowel sounds; abdomen not distended Percussion/Palpation: abdomen soft; abdomen nontender Musculoskeletal: No acute arthritis in any of the joint Neurologic: normal touch/pain/proprioception, moves all extremities and + focal motor deficit Lymphatic: no cervical or axillary lymphadenopathy Results & Data Results & Data Vital Signs (Past 12 Hours) Vital Signs Temp Pulse Resp BP Pulse Ox O2 Del Method 10/06/22 07:09 36.8 C 68 18 131/80 96 Room Air Medications Administered Current Inpatient Medications Acetaminophen (Acetaminophen 500 Mg Tab) 500 mg PO Q6H PRN PRN Reason: pain/fever Stop: 10/15/22 19:55 Last Admin: 09/28/22 01:19 Dose: 500 mg Benztropine Mesylate (Benztropine Mesylate 1 Mg Tab) 1 mg PO BID [facility] Stop: 11/03/22 20:59 Last Admin: 10/06/22 08:29 Dose: 1 mg Calcium Carbonate (Calcium Carbonate 500 Mg Chewable Tab) 500 mg PO Q6H PRN PRN Reason: Indigestion Stop: 11/01/22 12:36 Clonazepam (Clonazepam 1 Mg Tab) 1 mg PO BID [facility] Stop: 10/24/22 20:59 Last Admin: 10/06/22 08:31 Dose: 1 mg Clonazepam (Clonazepam 0.25 Mg Tab) 0.25 mg PO BID PRN PRN Reason: agitation/anxiety Stop: 11/03/22 10:29 Last Admin: 10/05/22 01:44 Dose: 0.25 mg Divalproex Sodium (Divalproex Extended Release 500 Mg Tab) 500 mg PO QAM [facility] Stop: 10/26/22 08:59 Last Admin: 10/06/22 08:29 Dose: 500 mg Divalproex Sodium (Divalproex Extended Release 500 Mg Tab) 1,000 mg PO HS [facility] Stop: 10/25/22 20:59 Last Admin: 10/05/22 20:25 Dose: 1,000 mg Enoxaparin Sodium (Enoxaparin Inj 40 Mg/0.4 Ml Syr) 40 mg SQ HS [facility] Stop: 10/30/22 20:59 Last Admin: 10/05/22 20:29 Dose: 40 mg Haloperidol (Haloperidol 5 Mg Tab) 5 mg PO BID PRN PRN Reason: Agitation/psychosis Stop: 10/24/22 10:19 Last Admin: 10/05/22 17:14 Dose: 5 mg Haloperidol (Haloperidol 5 Mg Tab) 5 mg PO QAM [facility] Stop: 11/01/22 08:59 Last Admin: 10/06/22 08:30 Dose: 5 mg Haloperidol (Haloperidol 5 Mg Tab) 10 mg PO HS [facility] Stop: 10/31/22 20:59 Last Admin: 10/05/22 20:27 Dose: 10 mg Haloperidol Lactate (Haloperidol Lactate 5 Mg/Ml 1 Ml Vial) 5 mg IM BID PRN PRN Reason: Agitation Stop: 11/03/22 15:00 Ibuprofen (Ibuprofen 200 Mg Tab) 400 mg PO TID PRN PRN Reason: pain, headache Stop: 10/16/22 11:47 Last Admin: 10/03/22 13:04 Dose: 400 mg Lorazepam (Lorazepam 2 Mg/1 Ml Vial) 2 mg IM BID PRN PRN Reason: Agitation Stop: 11/03/22 15:00 Last Admin: 10/04/22 15:13 Dose: 2 mg Melatonin (Melatonin 3 Mg Tab) 3 mg PO HS PRN PRN Reason: Sleep Stop: 11/05/22 01:00 Last Admin: 10/06/22 01:10 Dose: 3 mg Ondansetron HCl (Ondansetron Inj 2 Mg/Ml 2 Ml Vial) 4 mg IV Q6H PRN PRN Reason: Nausea And Vomiting Stop: 10/16/22 12:04 Last Admin: 09/21/22 09:00 Dose: 4 mg Oxcarbazepine (Oxcarbazepine 150 Mg Tablet) 750 mg PO BID [facility] Stop: 10/14/22 23:44 Last Admin: 10/06/22 08:28 Dose: 750 mg Propranolol HCl (Propranolol Hcl 20 Mg Tab) 20 mg PO [id number] [facility] Stop: 11/05/22 16:59 Tamsulosin HCl (Tamsulosin Hcl 0.4 Mg Cap) 0.4 mg PO HS [facility] Stop: 10/20/22 11:18 Last Admin: 10/05/22 20:27 Dose: 0.4 mg
[2022-10-06] MEDS: PROPRANOLOL HCL 20 MG TAB PO SCH (16:00)
[2022-10-06] MEDS: TAMSULOSIN HCL 0.4 MG CAP PO SCH (20:34)
[2022-10-06] MEDS: ENOXAPARIN INJ 40 MG/0.4 ML SYR SQ SCH (20:35)
[2022-10-07] MEDS: clonazePAM 1 MG TAB PO SCH ×2 (07:41→20:15)
[2022-10-07] MEDS: BENZTROPINE MESYLATE 1 MG TAB PO SCH ×2 (08:35→20:15)
[2022-10-07] MEDS: haloperidoL 5 MG TAB PO SCH ×2 (08:35→20:16)
[2022-10-07] MEDS: PROPRANOLOL HCL 20 MG TAB PO SCH ×2 (08:35→16:29)
[2022-10-07] MEDS: OXcarbazepine 150 MG TABLET PO SCH ×2 (08:36→20:16)
[2022-10-07] MEDS: DIVALPROEX EXTENDED RELEASE 500 MG TAB PO SCH ×2 (08:36→20:16)
--- NOTE | 2022-10-07 11:25 | Psychiatric Progress Note ---
Date of Service October 07, 2022 Impression / Recommendations Impression Reviewed care by Dr. Braun in italics. 47 y/o man with schizoaffective disorder, bipolar type who's been off his medication and who recently had seizures in the ED in the context of having been off his high-dose anticonvulsants and benzodiazepine and having been administered olanzapine. Has been improving since restarting his medications with no further seizures and remains medically stable. On 303 commitment awaiting inpatient psychiatric placement. Bilateral hand and foot tremor could represent Depakote side effect though seems to have a somewhat volitional component vs tardive dyskinesia (has been present since at least his most recent hospitalization at the [facility]). Could consider restarting clozapine, which he was previously stabilized on, though he may also benefit more from an antipsyc hotic option with an MURPHY, such as haldol decanoate, as he has a history of medication non-adherence. 10/05/2022: Symptoms of priscila lessening slightly but ongoing psychosis with periods of disorganization, disrobing and increased irritability and anxiety yesterday afternoon likely due to news of 304 hearing. Participated for 30 minutes in 304 hearing, 304 commitment granted. The patient remains hospitalized on a completed 304 involuntary commitment. This patient must remain on safety precautions with a 1-on-1 and is unable to leave the hospital AMA. 10/07/22: Improving (1) Schizoaffective disorder, bipolar type: Plan patient agreeable to start shifting Haldol to hs, when determine most appropriate dose will offer IM MURPHY (assuming tremor is manageable). Continue propranolol BID dosing for now, may increase or shift to TID. Suicide Risk Level Suicide Risk Level: Low (q15 min observation checks) (any risk is due to disorganized behavior rather than suicidality as he consistently denies SI, remains on 1-on-1 due to being on medical floor and on 303 commitment) Risk Factors Assessment Male: Yes : Yes Do You Have Access To A Gun?: No Health Problems: Yes Mental Health Diagnoses: Yes Previous Psychiatric Hospitalization: Yes Protective Factors Assessment Responsible for Young Children: No Employed: No Stable Relationships: No Interval History Identifying Information ROGER SCHMIDT is a 47-year-old male with a history of schizoaffective disorder, admitted on 09/14/2022 for seizures. Consult is by the hospitalist service for psychosis. 304 commitment as of 10/05/22. Chief Complaint "I remember you, we talked about the court house. I think tremors a little better." Review of Systems Notes no tripathi, no SI/HI, eating well, ambulating well. Subjective Subjective Patient was seen & assessed and interval progress reviewed with nursing. Patient has been cooperative per aide. Tremor appears to be slowly improving. He reviewed his 304 paperwork with me briefly. Slept overnight. No prns since 10/05/22. Physical Exam Psychiatric Orientation: alert, oriented x 3 and cooperative Apperance: appropriately dressed and appropriately groomed Eye Contact: good eye contact Motor Behavior: + akathisia (vs tremor, some volitional component) Speech: normal rate/rhythm/volume of speech Affect: euthymic affect and mood congruent with affect Mood: no depressed mood Thought Process: + circumstantial thought process Thought Content: reality based without delusions Suicidal Thoughts: denies suicidal thoughts, denies suicidal plan and denies suicidal intent Homicidal Thoughts: denies homicidal thoughts Hallucinations: no auditory hallucinations and no visual hallucinations Cognition: language grossly intact Insight: + limited insight Judgment: + limited judgement Vital Signs (Past 24 Hours) Last Vital Signs Temp 37.0 C 10/07/22 07:38 Pulse 64 10/07/22 07:38 Resp 16 10/07/22 07:38 BP 111/70 10/07/22 07:38 Pulse Ox 96 10/07/22 07:38 O2 Del Method Room Air 10/07/22 07:38 O2 Flow Rate 2 09/15/22 21:48 FiO2 30 09/14/22 22:35 Results & Data ([facility]) Current Inpatient Medications Current Inpatient Medications: Current Inpatient Medications Acetaminophen (Acetaminophen 500 Mg Tab) 500 mg PO Q6H PRN PRN Reason: pain/fever Stop: 10/15/22 19:55 Last Admin: 09/28/22 01:19 Dose: 500 mg Benztropine Mesylate (Benztropine Mesylate 1 Mg Tab) 1 mg PO BID [facility] Stop: 11/03/22 20:59 Last Admin: 10/07/22 08:35 Dose: 1 mg Calcium Carbonate (Calcium Carbonate 500 Mg Chewable Tab) 500 mg PO Q6H PRN PRN Reason: Indigestion Stop: 11/01/22 12:36 Clonazepam (Clonazepam 1 Mg Tab) 1 mg PO BID [facility] Stop: 10/24/22 20:59 Last Admin: 10/07/22 07:41 Dose: 1 mg Clonazepam (Clonazepam 0.25 Mg Tab) 0.25 mg PO BID PRN PRN Reason: agitation/anxiety Stop: 11/03/22 10:29 Last Admin: 10/05/22 01:44 Dose: 0.25 mg Divalproex Sodium (Divalproex Extended Release 500 Mg Tab) [facility] Stop: 10/26/22 08:59 Last Admin: 10/07/22 08:36 Dose: 500 mg Divalproex Sodium (Divalproex Extended Release 500 Mg Tab) 1,000 mg PO HS [facility] Stop: 10/25/22 20:59 Last Admin: 10/06/22 20:32 Dose: 1,000 mg Enoxaparin Sodium (Enoxaparin Inj 40 Mg/0.4 Ml Syr) 40 mg SQ HS [facility] Stop: 10/30/22 20:59 Last Admin: 10/06/22 20:35 Dose: Not Given Haloperidol (Haloperidol 5 Mg Tab) 5 mg PO BID PRN PRN Reason: Agitation/psychosis Stop: 10/24/22 10:19 Last Admin: 10/05/22 17:14 Dose: 5 mg Haloperidol (Haloperidol 5 Mg Tab) 10 mg PO HS [facility] Stop: 10/31/22 20:59 Last Admin: 10/06/22 20:32 Dose: 10 mg Haloperidol (Haloperidol 0.5 Mg Tab) [facility] Stop: 11/07/22 08:59 Haloperidol Lactate (Haloperidol Lactate 5 Mg/Ml 1 Ml Vial) 5 mg IM BID PRN PRN Reason: Agitation Stop: 11/03/22 15:00 Ibuprofen (Ibuprofen 200 Mg Tab) 400 mg PO TID PRN PRN Reason: pain, headache Stop: 10/16/22 11:47 Last Admin: 10/03/22 13:04 Dose: 400 mg Lorazepam (Lorazepam 2 Mg/1 Ml Vial) 2 mg IM BID PRN PRN Reason: Agitation Stop: 11/03/22 15:00 Last Admin: 10/04/22 15:13 Dose: 2 mg Melatonin (Melatonin 3 Mg Tab) 3 mg PO HS PRN PRN Reason: Sleep Stop: 11/05/22 01:00 Last Admin: 10/06/22 01:10 Dose: 3 mg Ondansetron HCl (Ondansetron Inj 2 Mg/Ml 2 Ml Vial) 4 mg IV Q6H PRN PRN Reason: Nausea And Vomiting Stop: 10/16/22 12:04 Last Admin: 09/21/22 09:00 Dose: 4 mg Oxcarbazepine (Oxcarbazepine 150 Mg Tablet) 750 mg PO BID [facility] Stop: 10/14/22 23:44 Last Admin: 10/07/22 08:36 Dose: 750 mg Propranolol HCl (Propranolol Hcl 20 Mg Tab) 20 mg PO [id number] [facility] Stop: 11/05/22 16:59 Last Admin: 10/07/22 08:35 Dose: 20 mg Tamsulosin HCl (Tamsulosin Hcl 0.4 Mg Cap) 0.4 mg PO HS [facility] Stop: 10/20/22 11:18 Last Admin: 10/06/22 20:34 Dose: 0.4 mg Mental Health & Subst Abuse Tx Therapist Name of Therapist: Mat Ch @ [facility] (?) Preventative Maintenance Technician Name of Preventative Maintenance Technician: Joann santiago [place] [facility] Post Discharge Appointments Primary Care Physician Name Of Family Doctor/PCP: Lico De Jesus
[2022-10-07] MEDS: clonazePAM 0.25 MG TAB PO PRN (15:09)
--- NOTE | 2022-10-07 17:57 | Hospitalist Progress Note ---
Date of Service October 07, 2022 Assessment & Plan (1) Schizoaffective disorder: Plan: Schizoaffective disorder/personality disorder/mood disorder, suboptimal following recent confinement [facility] Appreciate psychiatry input and recommendation-on Depakote and oxcarbazepine for mood stabilization. Also on Klonopin, Haldol Per psychiatry, 303 hearing was held on 09/18 for involuntary admission which was granted. Patient is still requiring one-to-one sitter Medically stable for discharge Awaiting inpatient psychiatric placement. No new symptoms and the patient remains medically stable to be discharged Dyspepsia Tums 500 mg 3 times daily as needed Denies any more epigastric discomfort Denies any more dyspeptic symptoms (2) Seizure: Plan: Seizure after Zyprexa in the ED- had 3 seizures which were attributed to high- dose Zyprexa administration S/p intubation for airway protection but he self extubated 09/14/22 and has been stable since Currently on Depakote(ER 500mg in AM and 1000mg in PM) and oxcarbazepine (750mg BID), also for his psychiatric issues also on Klonopin 1 mg twice daily EEG: Potentially abnormal awake/drowsy EEG with evidence of left parietal slowing and sharps. No evidence of persistent seizure activity. Generalized tremors are likely not due to seizure Lyme serology negative No more seizures Neurology recommendations noted Seizure seems to be controlled with current medications Remains stable otherwise No more seizure activity Imaging studies: MRI brain: 1. No acute infarct or intracranial hemorrhage. 2. The temporal lobes are symmetric. 3. A few punctate foci of T2 hyperintensity seen within the periventricular and subcortical white matter of the supratentorial brain. These are nonspecific but greater than expected for age. Therefore, this could represent early microvascular ischemic change, migraines, Lyme's disease, or less likely a demyelinating disease or vasculitis. Generalized tremors-started on propranolol per psychiatry Has been getting propranolol 10 mg twice daily Tremors are worse with concentration and during conversation Persisting generalized tremors-seems to be much better now without any severe anxiety Propranolol has been increased to 20 mg twice daily Plan DVT proph: Lovenox Dispo-medically stable for inpatient psychiatric facility- ongoing bed search. Patient remains hospitalized on completed 303 involuntary commitment and cannot leave the hospital AMA. Awaiting placement Admission and Anticipated Discharge Date Admission Date: September 14, 2022 Subjective The patient was seen and examined in medical floor He has been really stable with less tremors. appears coherent. holds conversation easily. Denies any symptoms and has been waiting to go to inpatient psychiatric rehab Physical Exam Physical Exam: Lying in bed comfortably with ongoing tremors involving the extremities Constitutional: average body habitus; not ill appearing Eyes: PERRL, conjunctivae normal, anicteric sclerae ENMT: external ear and nose normal, oropharynx normal Neck: trachea midline, no thyromegaly Respiratory: no respiratory distress Auscultation: lungs clear to auscultation bilaterally Cardiovascular: Rate/Rhythm: regular rate and regular rhythm; not tachycardic Extremities: no edema Gastrointestinal (Abdomen): Inspection/Auscultation: normal bowel sounds; abdomen not distended Percussion/Palpation: abdomen soft; abdomen nontender Musculoskeletal: No acute arthritis in any of the joint Neurologic: normal touch/pain/proprioception and moves all extremities tremors Lymphatic: no cervical or axillary lymphadenopathy Results & Data Results & Data Vital Signs (Past 12 Hours) Vital Signs Temp Pulse Resp BP Pulse Ox O2 Del Method 10/07/22 15:33 36.9 C 68 18 127/75 95 Room Air 10/07/22 07:38 37.0 C 64 16 111/70 96 Room Air
[2022-10-07] MEDS: ENOXAPARIN INJ 40 MG/0.4 ML SYR SQ SCH (20:16)
[2022-10-07] MEDS: TAMSULOSIN HCL 0.4 MG CAP PO SCH (20:16)
[2022-10-08] MEDS: BENZTROPINE MESYLATE 1 MG TAB PO SCH ×2 (08:04→10:13)
[2022-10-08] MEDS: PROPRANOLOL HCL 20 MG TAB PO SCH ×3 (08:04→17:52)
[2022-10-08] MEDS: OXcarbazepine 150 MG TABLET PO SCH ×2 (08:04→20:13)
[2022-10-08] MEDS: DIVALPROEX EXTENDED RELEASE 500 MG TAB PO SCH ×2 (08:04→20:12)
[2022-10-08] MEDS: clonazePAM 1 MG TAB PO SCH ×2 (08:09→20:12)
[2022-10-08] MEDS ORDERED: haloperidoL 0.5 MG TAB PO SCH (09:00)
--- NOTE | 2022-10-08 11:47 | Psychiatric Progress Note ---
Date of Service October 08, 2022 Impression / Recommendations Impression Reviewed care by Dr. Braun in italics. 47 y/o man with schizoaffective disorder, bipolar type who's been off his medication and who recently had seizures in the ED in the context of having been off his high-dose anticonvulsants and benzodiazepine and having been administered olanzapine. The patient remains hospitalized on a completed 304 involuntary commitment. This patient must remain on safety precautions with a 1-on-1 and is unable to leave the hospital AMA. 10/08/22: although patient has stabilized to some degree in the hospital with medications, he has shown marked inability to care for self outside of the hospital and rapidly decompensates. (1) Schizoaffective disorder, bipolar type: Plan continues to require inpatient psychiatric care on 304 d/c Cogentin as no dystonia and can worsen akathisia in some patients tremor continues to improve with propranolol d/c am dose of Haldol, determine hs dosing tomorrow. last labs >10 days, will add CMP, fasting lipids, and Depakote level for am Suicide Risk Level Suicide Risk Level: Low (q15 min observation checks) (any risk is due to disorganized behavior rather than suicidality as he consistently denies SI, remains on 1-on-1 due to being on medical floor and on 303 commitment) Risk Factors Assessment Male: Yes : Yes Do You Have Access To A Gun?: No Health Problems: Yes Mental Health Diagnoses: Yes Previous Psychiatric Hospitalization: Yes Protective Factors Assessment Responsible for Young Children: No Employed: No Stable Relationships: No Interval History Identifying Information ROGER SCHMIDT is a 47-year-old male with a history of schizoaffective disorder, admitted on 09/14/2022 for seizures. Consult is by the hospitalist service for psychosis. 304 commitment as of 10/05/22. Chief Complaint "I shaved my head." Review of Systems Notes no SI/HI/tripathi/del. Subjective Subjective Patient was seen & assessed and interval progress reviewed with nursing. Patient remains cooperative on the medical floor. He initially refused Cogentin and propranolol this am. Reminded him that propranolol is for tremor and he was agreeable to take. Reviewed plan to shift dosing of Haldol to hs. Sleeping through the night. Physical Exam Psychiatric Orientation: alert and oriented x 3 Eye Contact: good eye contact Speech: normal rate/rhythm/volume of speech Affect: euthymic affect Mood: no depressed mood Thought Process: goal directed thought process Thought Content: reality based without delusions Suicidal Thoughts: denies suicidal thoughts Homicidal Thoughts: denies homicidal thoughts Hallucinations: no auditory hallucinations and no visual hallucinations Estimated Intelligence: consistent with education level Insight: + limited insight Judgment: + limited judgement Vital Signs (Past 24 Hours) Last Vital Signs Temp 37 C 10/08/22 08:20 Pulse 64 10/08/22 08:20 Resp 16 10/08/22 08:20 BP 121/74 10/08/22 08:20 Pulse Ox 96 10/08/22 08:20 O2 Del Method Room Air 10/08/22 08:20 O2 Flow Rate 2 09/15/22 21:48 FiO2 30 09/14/22 22:35 Results & Data ([facility]) Current Inpatient Medications Current Inpatient Medications: Current Inpatient Medications Acetaminophen (Acetaminophen 500 Mg Tab) 500 mg PO Q6H PRN PRN Reason: pain/fever Stop: 10/15/22 19:55 Last Admin: 09/28/22 01:19 Dose: 500 mg Calcium Carbonate (Calcium Carbonate 500 Mg Chewable Tab) 500 mg PO Q6H PRN PRN Reason: Indigestion Stop: 11/01/22 12:36 Clonazepam (Clonazepam 1 Mg Tab) 1 mg PO BID [facility] Stop: 10/24/22 20:59 Last Admin: 10/08/22 08:09 Dose: 1 mg Clonazepam (Clonazepam 0.25 Mg Tab) 0.25 mg PO BID PRN PRN Reason: agitation/anxiety Stop: 11/03/22 10:29 Last Admin: 10/07/22 15:09 Dose: 0.25 mg Divalproex Sodium (Divalproex Extended Release 500 Mg Tab) 500 mg PO QAM [facility] Stop: 10/26/22 08:59 Last Admin: 10/08/22 08:04 Dose: 500 mg Divalproex Sodium (Divalproex Extended Release 500 Mg Tab) 1,000 mg PO HS [facility] Stop: 10/25/22 20:59 Last Admin: 10/07/22 20:16 Dose: 1,000 mg Enoxaparin Sodium (Enoxaparin Inj 40 Mg/0.4 Ml Syr) 40 mg SQ HS [facility] Stop: 10/30/22 20:59 Last Admin: 10/07/22 20:16 Dose: Not Given Haloperidol (Haloperidol 5 Mg Tab) 5 mg PO BID PRN PRN Reason: Agitation/psychosis Stop: 10/24/22 10:19 Last Admin: 10/05/22 17:14 Dose: 5 mg Haloperidol (Haloperidol 5 Mg Tab) 10 mg PO HS [facility] Stop: 10/31/22 20:59 Last Admin: 10/07/22 20:16 Dose: 10 mg Haloperidol Lactate (Haloperidol Lactate 5 Mg/Ml 1 Ml Vial) 5 mg IM BID PRN PRN Reason: Agitation Stop: 11/03/22 15:00 Ibuprofen (Ibuprofen 200 Mg Tab) 400 mg PO TID PRN PRN Reason: pain, headache Stop: 10/16/22 11:47 Last Admin: 10/03/22 13:04 Dose: 400 mg Lorazepam (Lorazepam 2 Mg/1 Ml Vial) 2 mg IM BID PRN PRN Reason: Agitation Stop: 11/03/22 15:00 Last Admin: 10/04/22 15:13 Dose: 2 mg Melatonin (Melatonin 3 Mg Tab) 3 mg PO HS PRN PRN Reason: Sleep Stop: 11/05/22 01:00 Last Admin: 10/06/22 01:10 Dose: 3 mg Ondansetron HCl (Ondansetron Inj 2 Mg/Ml 2 Ml Vial) 4 mg IV Q6H PRN PRN Reason: Nausea And Vomiting Stop: 10/16/22 12:04 Last Admin: 09/21/22 09:00 Dose: 4 mg Oxcarbazepine (Oxcarbazepine 150 Mg Tablet) 750 mg PO BID [facility] Stop: 10/14/22 23:44 Last Admin: 10/08/22 08:04 Dose: 750 mg Propranolol HCl (Propranolol Hcl 20 Mg Tab) 20 mg PO [id number] [facility] Stop: 11/05/22 16:59 Last Admin: 10/08/22 09:59 Dose: 20 mg Tamsulosin HCl (Tamsulosin Hcl 0.4 Mg Cap) 0.4 mg PO HS [facility] Stop: 10/20/22 11:18 Last Admin: 10/07/22 20:16 Dose: 0.4 mg Mental Health & Subst Abuse Tx Therapist Name of Therapist: Mat Ch @ [facility] (?) Nutrition Services Aide Name of Nutrition Services Aide: Joann santiago [place] [facility] Post Discharge Appointments Primary Care Physician Name Of Family Doctor/PCP: Lico De Jesus
[2022-10-08] MEDS: clonazePAM 0.25 MG TAB PO PRN ×2 (12:53→18:17)
--- NOTE | 2022-10-08 15:48 | Hospitalist Progress Note ---
Date of Service October 08, 2022 Assessment & Plan (1) Schizoaffective disorder: Plan: Schizoaffective disorder/personality disorder/mood disorder, suboptimal following recent confinement of [facility] Appreciate psychiatry input and recommendation-on Depakote and oxcarbazepine for mood stabilization. Also on Klonopin, Haldol Per psychiatry, 303 hearing was held on 09/18 for involuntary admission which was granted. Patient is still requiring one-to-one sitter Medically stable for discharge Psychiatry adjusting medications, awaiting inpatient psychiatric placement. No new symptoms and the patient remains medically stable to be discharged Dyspepsia Tums 500 mg 3 times daily as needed Denies any more epigastric discomfort Denies any more dyspeptic symptoms (2) Seizure: Plan: Seizure after Zyprexa in the ED- had 3 seizures which were attributed to high- dose Zyprexa administration S/p intubation for airway protection but he self extubated 09/14/22 and has been stable since Currently on Depakote(ER 500mg in AM and 1000mg in PM) and oxcarbazepine (750mg BID), also for his psychiatric issues also on Klonopin 1 mg twice daily EEG: Potentially abnormal awake/drowsy EEG with evidence of left parietal slowing and sharps. No evidence of persistent seizure activity. Generalized tremors are likely not due to seizure Lyme serology negative No more seizures Neurology recommendations noted Seizure seems to be controlled with current medications Remains stable otherwise No more seizure activity Imaging studies: MRI brain: 1. No acute infarct or intracranial hemorrhage. 2. The temporal lobes are symmetric. 3. A few punctate foci of T2 hyperintensity seen within the periventricular and subcortical white matter of the supratentorial brain. These are nonspecific but greater than expected for age. Therefore, this could represent early microvascular ischemic change, migraines, Lyme's disease, or less likely a demyelinating disease or vasculitis. Generalized tremors-started on propranolol per psychiatry Persisting generalized tremors-seems to be much better now without any severe anxiety Propranolol has been increased to 20 mg twice daily Plan DVT proph: Lovenox Dispo-medically stable for inpatient psychiatric facility- ongoing bed search. Patient remains hospitalized on completed 303 involuntary commitment and cannot leave the hospital AMA. Awaiting placement Admission and Anticipated Discharge Date Admission Date: September 14, 2022 Subjective The patient was seen and examined in medical floor He has been really stable with less tremors. appears coherent. holds conversation easily. Denies any symptoms and has been waiting to go to inpatient psychiatric rehab Physical Exam Physical Exam: Lying in bed comfortably with ongoing tremors involving the extremities Constitutional: average body habitus; not ill appearing Eyes: PERRL, conjunctivae normal, anicteric sclerae ENMT: external ear and nose normal, oropharynx normal Neck: trachea midline, no thyromegaly Respiratory: no respiratory distress Auscultation: lungs clear to auscultation bilaterally Cardiovascular: Rate/Rhythm: regular rate and regular rhythm; not tachycardic Extremities: no edema Gastrointestinal (Abdomen): Inspection/Auscultation: normal bowel sounds; abdomen not distended Percussion/Palpation: abdomen soft; abdomen nontender Neurologic: normal touch/pain/proprioception and moves all extremities Lymphatic: no cervical or axillary lymphadenopathy Results & Data Results & Data Vital Signs (Past 12 Hours) Vital Signs Temp Pulse Resp BP Pulse Ox O2 Del Method 10/08/22 08:20 37 C 64 16 121/74 96 Room Air
[2022-10-08] MEDS: haloperidoL 5 MG TAB PO SCH (20:13)
[2022-10-08] MEDS: ENOXAPARIN INJ 40 MG/0.4 ML SYR SQ SCH (20:14)
[2022-10-08] MEDS: TAMSULOSIN HCL 0.4 MG CAP PO SCH (20:14)
[2022-10-09] MEDS: MELATONIN 3 MG TAB PO PRN ×2 (03:43→20:19)
[2022-10-09] MEDS: clonazePAM 0.25 MG TAB PO PRN ×2 (03:43→16:43)
[2022-10-09 07:27] LABS: Albumin Globulin Ratio 1.5 (0.9-2); Albumin Level 3.7 gm/dl (3.4-5.0); BUN Creatinine Ratio 18.6 (10-20); Bilirubin,Total 0.3 mg/dl (0.2-1.0); Calcium 8.9 mg/dl (8.6-10.3); Chol HDL Ratio 4.7 (0-5); Creatinine Clr Calc Pharmacy 123.3 ml/min; Est GFR (African American) 131.2 ml/min; Est GFR (Non-African American) 113.2 ml/min; Globulin 2.5 gm/dl (2.5-4.0); Potassium 3.7 mmol/L (3.5-5.1); Total Protein 6.2 gm/dl (6.0-8.3)
[2022-10-09] MEDS: clonazePAM 1 MG TAB PO SCH ×2 (09:42→20:19)
[2022-10-09] MEDS: PROPRANOLOL HCL 20 MG TAB PO SCH ×2 (09:43→17:30)
[2022-10-09] MEDS: DIVALPROEX EXTENDED RELEASE 500 MG TAB PO SCH ×2 (09:43→20:19)
[2022-10-09] MEDS: OXcarbazepine 150 MG TABLET PO SCH ×2 (09:43→20:19)
--- NOTE | 2022-10-09 09:52 | Psychiatric Progress Note ---
Date of Service October 09, 2022 Impression / Recommendations Impression Reviewed care by Dr. Braun in italics. 47 y/o man with schizoaffective disorder, bipolar type who's been off his medication and who recently had seizures in the ED in the context of having been off his high-dose anticonvulsants and benzodiazepine and having been administered olanzapine. The patient remains hospitalized on a completed 304 involuntary commitment. This patient must remain on safety precautions with a 1-on-1 and is unable to leave the hospital AMA. 10/09/22: although patient has stabilized to some degree in the hospital with medications, he has shown marked inability to care for self outside of the hospital and rapidly decompensates. (1) Schizoaffective disorder, bipolar type: Plan continue current meds and treatment plan liaison to contact Petra re: bed status Risk Factors Assessment Male: Yes : Yes Do You Have Access To A Gun?: No Health Problems: Yes Mental Health Diagnoses: Yes Previous Psychiatric Hospitalization: Yes Protective Factors Assessment Responsible for Young Children: No Employed: No Stable Relationships: No Interval History Identifying Information ROGER SCHMIDT is a 47-year-old male with a history of schizoaffective disorder, admitted on 09/14/2022 for seizures. Consult is by the hospitalist service for psychosis. 304 commitment as of 10/05/22. Chief Complaint tremor, awaiting placement Review of Systems Notes unable to obtain due to sleeping Subjective Subjective Patient was seen & assessed and interval progress reviewed with nursing and social work. Patient remains cooperative with med floor staff, had am labs. Ambulating well. Tremor continues to decrease. Physical Exam Mental Examination patient sleeping soundly on 2 attempts to round, will allow therapeutic rest as no acute issues overnight. Vital Signs (Past 24 Hours) Last Vital Signs Temp 36.7 C 10/09/22 02:13 Pulse 60 10/09/22 02:13 Resp 18 10/09/22 02:13 BP 110/72 10/09/22 02:13 Pulse Ox 97 10/09/22 02:13 O2 Del Method Room Air 10/09/22 02:13 O2 Flow Rate 2 09/15/22 21:48 FiO2 30 09/14/22 22:35 Results & Data ([facility]) Laboratory Results Laboratory Results - last 24 hr 10/09/22 10/09/22 06:26 06:26 Sodium 135 L Potassium 3.7 Chloride 102 Carbon Dioxide 28 Anion Gap 5 BUN 13 Creatinine 0.70 Est Cr Clr Drug Dosing 123.3 Est GFR ( Amer) 131.2 Est GFR (Non-Af Amer) 113.2 BUN/Creatinine Ratio 18.6 Glucose 121 H Calcium 8.9 Total Bilirubin 0.3 AST 16 ALT 22 Alkaline Phosphatase 50 Total Protein 6.2 Albumin 3.7 Globulin 2.5 Albumin/Globulin Ratio 1.5 Triglycerides 218 H Cholesterol 215 H LDL Cholesterol, Calc 125 VLDL Cholesterol, Calc 44 H HDL Cholesterol 46 Cholesterol/HDL Ratio 4.7 Valproic Acid 69 Current Inpatient Medications Current Inpatient Medications: Current Inpatient Medications Acetaminophen (Acetaminophen 500 Mg Tab) 500 mg PO Q6H PRN PRN Reason: pain/fever Stop: 10/15/22 19:55 Last Admin: 09/28/22 01:19 Dose: 500 mg Calcium Carbonate (Calcium Carbonate 500 Mg Chewable Tab) 500 mg PO Q6H PRN PRN Reason: Indigestion Stop: 11/01/22 12:36 Clonazepam (Clonazepam 1 Mg Tab) 1 mg PO BID [facility] Stop: 10/24/22 20:59 Last Admin: 10/09/22 09:42 Dose: 1 mg Clonazepam (Clonazepam 0.25 Mg Tab) 0.25 mg PO BID PRN PRN Reason: agitation/anxiety Stop: 11/03/22 10:29 Last Admin: 10/09/22 03:43 Dose: 0.25 mg Divalproex Sodium (Divalproex Extended Release 500 Mg Tab) [facility] Stop: 10/26/22 08:59 Last Admin: 10/09/22 09:43 Dose: 500 mg Divalproex Sodium (Divalproex Extended Release 500 Mg Tab) 1,000 mg PO HS [facility] Stop: 10/25/22 20:59 Last Admin: 10/08/22 20:12 Dose: 1,000 mg Enoxaparin Sodium (Enoxaparin Inj 40 Mg/0.4 Ml Syr) 40 mg SQ HS [facility] Stop: 10/30/22 20:59 Last Admin: 10/08/22 20:14 Dose: Not Given Haloperidol (Haloperidol 5 Mg Tab) 5 mg PO BID PRN PRN Reason: Agitation/psychosis Stop: 10/24/22 10:19 Last Admin: 10/05/22 17:14 Dose: 5 mg Haloperidol (Haloperidol 5 Mg Tab) 10 mg PO HS [facility] Stop: 10/31/22 20:59 Last Admin: 10/08/22 20:13 Dose: 10 mg Haloperidol Lactate (Haloperidol Lactate 5 Mg/Ml 1 Ml Vial) 5 mg IM BID PRN PRN Reason: Agitation Stop: 11/03/22 15:00 Ibuprofen (Ibuprofen 200 Mg Tab) 400 mg PO TID PRN PRN Reason: pain, headache Stop: 10/16/22 11:47 Last Admin: 10/03/22 13:04 Dose: 400 mg Lorazepam (Lorazepam 2 Mg/1 Ml Vial) 2 mg IM BID PRN PRN Reason: Agitation Stop: 11/03/22 15:00 Last Admin: 10/04/22 15:13 Dose: 2 mg Melatonin (Melatonin 3 Mg Tab) 3 mg PO HS PRN PRN Reason: Sleep Stop: 11/05/22 01:00 Last Admin: 10/09/22 03:43 Dose: 3 mg Ondansetron HCl (Ondansetron Inj 2 Mg/Ml 2 Ml Vial) 4 mg IV Q6H PRN PRN Reason: Nausea And Vomiting Stop: 10/16/22 12:04 Last Admin: 09/21/22 09:00 Dose: 4 mg Oxcarbazepine (Oxcarbazepine 150 Mg Tablet) 750 mg PO BID [facility] Stop: 10/14/22 23:44 Last Admin: 10/09/22 09:43 Dose: 750 mg Propranolol HCl (Propranolol Hcl 20 Mg Tab) 20 mg PO [id number] [facility] Stop: 11/05/22 16:59 Last Admin: 10/09/22 09:43 Dose: 20 mg Tamsulosin HCl (Tamsulosin Hcl 0.4 Mg Cap) 0.4 mg PO HS [facility] Stop: 10/20/22 11:18 Last Admin: 10/08/22 20:14 Dose: 0.4 mg Mental Health & Subst Abuse Tx Therapist Name of Therapist: Mat Ch @ [facility] (?) Consulting Psychologist Name of Consulting Psychologist: Joann santiago [place] [facility] Post Discharge Appointments Primary Care Physician Name Of Family Doctor/PCP: Lico De Jesus
--- NOTE | 2022-10-09 15:39 | Hospitalist Progress Note ---
Date of Service October 09, 2022 Assessment & Plan (1) Schizoaffective disorder: Plan: Schizoaffective disorder/personality disorder/mood disorder, suboptimal following recent confinement of [facility] Appreciate psychiatry input and recommendation-on Depakote and oxcarbazepine for mood stabilization. Also on Klonopin, Haldol Per psychiatry, 303 hearing was held on 09/18 for involuntary admission which was granted. Patient is still requiring one-to-one sitter Medically stable for discharge Psychiatry adjusting medications, awaiting inpatient psychiatric placement. No new symptoms and the patient remains medically stable to be discharged Dyspepsia Tums 500 mg 3 times daily as needed Denies any more epigastric discomfort Denies any more dyspeptic symptoms (2) Seizure: Plan: Seizure after Zyprexa in the ED- had 3 seizures which were attributed to high- dose Zyprexa administration S/p intubation for airway protection but he self extubated 09/14/22 and has been stable since Currently on Depakote(ER 500mg in AM and 1000mg in PM) and oxcarbazepine (750mg BID), also for his psychiatric issues also on Klonopin 1 mg twice daily EEG: Potentially abnormal awake/drowsy EEG with evidence of left parietal slowing and sharps. No evidence of persistent seizure activity. Generalized tremors are likely not due to seizure Lyme serology negative No more seizures Neurology recommendations noted Seizure seems to be controlled with current medications Remains stable otherwise No more seizure activity Imaging studies: MRI brain: 1. No acute infarct or intracranial hemorrhage. 2. The temporal lobes are symmetric. 3. A few punctate foci of T2 hyperintensity seen within the periventricular and subcortical white matter of the supratentorial brain. These are nonspecific but greater than expected for age. Therefore, this could represent early microvascular ischemic change, migraines, Lyme's disease, or less likely a demyelinating disease or vasculitis. Generalized tremors-started on propranolol per psychiatry Persisting generalized tremors-seems to be much better now without any severe anxiety Propranolol has been increased to 20 mg twice daily Plan DVT proph: Lovenox Dispo-medically stable for inpatient psychiatric facility- ongoing bed search. Patient remains hospitalized on completed 303 involuntary commitment and cannot leave the hospital AMA. Awaiting placement Admission and Anticipated Discharge Date Admission Date: September 14, 2022 Subjective The patient was seen and examined in medical floor He has been really stable with less tremors. appears coherent. holds conversation easily. Denies any symptoms and has been waiting to go to inpatient psychiatric rehab Physical Exam Physical Exam: Lying in bed comfortably with ongoing tremors involving the extremities Constitutional: average body habitus; not ill appearing Eyes: PERRL, conjunctivae normal, anicteric sclerae ENMT: external ear and nose normal, oropharynx normal Neck: trachea midline, no thyromegaly Respiratory: no respiratory distress Auscultation: lungs clear to auscultation bilaterally Cardiovascular: Rate/Rhythm: regular rate and regular rhythm; not tachycardic Extremities: no edema Gastrointestinal (Abdomen): Inspection/Auscultation: normal bowel sounds; abdomen not distended Percussion/Palpation: abdomen soft; abdomen nontender Neurologic: normal touch/pain/proprioception and moves all extremities Lymphatic: no cervical or axillary lymphadenopathy Results & Data Results & Data Vital Signs (Past 12 Hours) Vital Signs Temp Pulse Resp BP Pulse Ox O2 Del Method 10/09/22 09:48 36.7 C 82 18 110/61 96 Room Air
[2022-10-09] MEDS: haloperidoL 5 MG TAB PO SCH (20:18)
[2022-10-09] MEDS: ENOXAPARIN INJ 40 MG/0.4 ML SYR SQ SCH (20:18)
[2022-10-09] MEDS: TAMSULOSIN HCL 0.4 MG CAP PO SCH (20:20)
[2022-10-10] MEDS: clonazePAM 1 MG TAB PO SCH ×2 (08:08→20:09)
[2022-10-10] MEDS: OXcarbazepine 150 MG TABLET PO SCH ×2 (08:08→20:12)
[2022-10-10] MEDS: DIVALPROEX EXTENDED RELEASE 500 MG TAB PO SCH ×2 (08:08→20:13)
[2022-10-10] MEDS: PROPRANOLOL HCL 20 MG TAB PO SCH ×3 (08:09→16:07)
[2022-10-10] MEDS ORDERED: DIVALPROEX EXTENDED RELEASE 500 MG TAB PO ONE (10:22)
--- NOTE | 2022-10-10 10:26 | Psychiatric Progress Note ---
Date of Service October 10, 2022 Impression / Recommendations Impression Reviewed care by Dr. Braun in italics. 47 y/o man with schizoaffective disorder, bipolar type who's been off his medication and who recently had seizures in the ED in the context of having been off his high-dose anticonvulsants and benzodiazepine and having been administered olanzapine. The patient remains hospitalized on a completed 304 involuntary commitment. This patient must remain on safety precautions with a 1-on-1 and is unable to leave the hospital AMA. 10/10/22: more agreeable to recommended dose of Depakote. although patient has stabilized to some degree in the hospital with medications, he has shown marked inability to care for self outside of the hospital and rapidly decompensates. (1) Schizoaffective disorder, bipolar type: Plan bed search ongoing check with hospitalist on ability to d/c Lovenox as patient has been walking halls, etc. and was a standard admission prn. patient request. Increase Depakote to 1000 mg po Bid Haldol will be 15 mg this hs. Risk Factors Assessment Male: Yes : Yes Do You Have Access To A Gun?: No Health Problems: Yes Mental Health Diagnoses: Yes Previous Psychiatric Hospitalization: Yes Protective Factors Assessment Responsible for Young Children: No Employed: No Stable Relationships: No Interval History Identifying Information ROGER SCHMIDT is a 47-year-old male with a history of schizoaffective disorder, admitted on 09/14/2022 for seizures. Consult is by the hospitalist service for psychosis. 304 commitment as of 10/05/22. Chief Complaint "I want my Depakote increased, it will help my tremor." Review of Systems Notes denies physical complaints (no CP, N, V, etc.) denied muscle tightness Subjective Subjective Patient was seen & assessed and interval progress reviewed with nursing. Patient is getting more cautious re: his am meds. Refused propranolol. Denies that Haldol is the cause of tremor. Reviewed that we are shifting Haldol dosing to hs and he remains agreeable. Reviewed Depakote level of 69 and desire that dose be closer to 100. Patient voiced understanding. Physical Exam Psychiatric Orientation: alert Eye Contact: good eye contact Motor Behavior: no abnormal motor movements Speech: normal rate/rhythm/volume of speech Affect: + constricted affect Mood: + anxious mood Thought Process: + circumstantial thought process Thought Content: reality based without delusions Suicidal Thoughts: denies suicidal thoughts Homicidal Thoughts: denies homicidal thoughts Hallucinations: no auditory hallucinations and no visual hallucinations Cognition: attention grossly intact Vital Signs (Past 24 Hours) Last Vital Signs Temp 36.7 C 10/10/22 08:21 Pulse 78 10/10/22 08:21 Resp 16 10/10/22 08:21 BP 116/83 10/10/22 08:21 Pulse Ox 97 10/10/22 08:21 O2 Del Method Room Air 10/10/22 08:21 O2 Flow Rate 2 09/15/22 21:48 FiO2 30 09/14/22 22:35 Results & Data ([facility]) Current Inpatient Medications Current Inpatient Medications: Current Inpatient Medications Acetaminophen (Acetaminophen 500 Mg Tab) 500 mg PO Q6H PRN PRN Reason: pain/fever Stop: 10/15/22 19:55 Last Admin: 09/28/22 01:19 Dose: 500 mg Calcium Carbonate (Calcium Carbonate 500 Mg Chewable Tab) 500 mg PO Q6H PRN PRN Reason: Indigestion Stop: 11/01/22 12:36 Clonazepam (Clonazepam 1 Mg Tab) 1 mg PO BID [facility] Stop: 10/24/22 20:59 Last Admin: 10/10/22 08:08 Dose: 1 mg Clonazepam (Clonazepam 0.25 Mg Tab) 0.25 mg PO BID PRN PRN Reason: agitation/anxiety Stop: 11/03/22 10:29 Last Admin: 10/09/22 16:43 Dose: 0.25 mg Divalproex Sodium (Divalproex Extended Release 500 Mg Tab) 500 mg PO ONE ONE Stop: 10/10/22 10:23 Divalproex Sodium (Divalproex Extended Release 500 Mg Tab) 1,000 mg PO BID [facility] Stop: 11/09/22 20:59 Enoxaparin Sodium (Enoxaparin Inj 40 Mg/0.4 Ml Syr) 40 mg SQ HS [facility] Stop: 10/30/22 20:59 Last Admin: 10/09/22 20:18 Dose: 40 mg Haloperidol (Haloperidol 5 Mg Tab) 5 mg PO BID PRN PRN Reason: Agitation/psychosis Stop: 10/24/22 10:19 Last Admin: 10/05/22 17:14 Dose: 5 mg Haloperidol (Haloperidol 5 Mg Tab) 10 mg PO HS [facility] Stop: 10/31/22 20:59 Last Admin: 10/09/22 20:18 Dose: 10 mg Haloperidol Lactate (Haloperidol Lactate 5 Mg/Ml 1 Ml Vial) 5 mg IM BID PRN PRN Reason: Agitation Stop: 11/03/22 15:00 Ibuprofen (Ibuprofen 200 Mg Tab) 400 mg PO TID PRN PRN Reason: pain, headache Stop: 10/16/22 11:47 Last Admin: 10/03/22 13:04 Dose: 400 mg Lorazepam (Lorazepam 2 Mg/1 Ml Vial) 2 mg IM BID PRN PRN Reason: Agitation Stop: 11/03/22 15:00 Last Admin: 10/04/22 15:13 Dose: 2 mg Melatonin (Melatonin 3 Mg Tab) 3 mg PO HS PRN PRN Reason: Sleep Stop: 11/05/22 01:00 Last Admin: 10/09/22 20:19 Dose: 3 mg Ondansetron HCl (Ondansetron Inj 2 Mg/Ml 2 Ml Vial) 4 mg IV Q6H PRN PRN Reason: Nausea And Vomiting Stop: 10/16/22 12:04 Last Admin: 09/21/22 09:00 Dose: 4 mg Oxcarbazepine (Oxcarbazepine 150 Mg Tablet) 750 mg PO BID [facility] Stop: 10/14/22 23:44 Last Admin: 10/10/22 08:08 Dose: 750 mg Propranolol HCl (Propranolol Hcl 20 Mg Tab) 20 mg PO BID17 [facility] Stop: 11/05/22 16:59 Last Admin: 10/10/22 08:33 Dose: Not Given Tamsulosin HCl (Tamsulosin Hcl 0.4 Mg Cap) 0.4 mg PO HS [facility] Stop: 10/20/22 11:18 Last Admin: 10/09/22 20:20 Dose: 0.4 mg Mental Health & Subst Abuse Tx Therapist Name of Therapist: Mat Ch @ [facility] (?) Marine Mechanic Name of Marine Mechanic: Joann santiago [place] [facility] Post Discharge Appointments Primary Care Physician Name Of Family Doctor/PCP: Lico De Jesus
[2022-10-10] MEDS: LORazepam 2 MG/1 ML VIAL IM PRN (15:11)
--- NOTE | 2022-10-10 16:27 | Hospitalist Progress Note ---
Date of Service October 10, 2022 Assessment & Plan (1) Schizoaffective disorder: Plan: Schizoaffective disorder/personality disorder/mood disorder, suboptimal following recent confinement of [facility] Appreciate psychiatry input and recommendation-on Depakote and oxcarbazepine for mood stabilization. Also on Klonopin, Haldol Per psychiatry, 303 hearing was held on 09/18 for involuntary admission which was granted. Patient is still requiring one-to-one sitter Medically stable for discharge Psychiatry adjusting medications, awaiting inpatient psychiatric placement. No new symptoms and the patient remains medically stable to be discharged Dyspepsia Tums 500 mg 3 times daily as needed Denies any more epigastric discomfort Denies any more dyspeptic symptoms (2) Seizure: Plan: Seizure after Zyprexa in the ED- had 3 seizures which were attributed to high- dose Zyprexa administration S/p intubation for airway protection but he self extubated 09/14/22 and has been stable since Currently on Depakote(ER 500mg in AM and 1000mg in PM) and oxcarbazepine (750mg BID), also for his psychiatric issues also on Klonopin 1 mg twice daily EEG: Potentially abnormal awake/drowsy EEG with evidence of left parietal slowing and sharps. No evidence of persistent seizure activity. Generalized tremors are likely not due to seizure Lyme serology negative No more seizures Neurology recommendations noted was agitated/violent 10/10 -- meds uptitrated per psychiatry. Imaging studies: MRI brain: 1. No acute infarct or intracranial hemorrhage. 2. The temporal lobes are symmetric. 3. A few punctate foci of T2 hyperintensity seen within the periventricular and subcortical white matter of the supratentorial brain. These are nonspecific but greater than expected for age. Therefore, this could represent early microvascular ischemic change, migraines, Lyme's disease, or less likely a demyelinating disease or vasculitis. Generalized tremors-started on propranolol per psychiatry Persisting generalized tremors-seems to be much better now without any severe anxiety Propranolol has been increased to 20 mg twice daily Plan DVT proph: scds. pt doesn't like lovenox/injection. maintain activity level/ambulation. Dispo-medically stable for inpatient psychiatric facility- ongoing bed search. Patient remains hospitalized on completed 303 involuntary commitment and cannot leave the hospital AMA. Awaiting placement Admission and Anticipated Discharge Date Admission Date: September 14, 2022 Subjective The patient was seen and examined in medical floor He has been really stable with less tremors. appears coherent. holds conversation easily. Denies any symptoms and has been waiting to go to inpatient psychiatric rehab pt was agitated and violent later in the day, running in the hallway. was put on soft restraints x 4. haldol given. deepak haldol and divalproex uptitrated per psychiatry. Physical Exam Physical Exam: Lying in bed comfortably with ongoing tremors involving the extremities Constitutional: average body habitus; not ill appearing Eyes: PERRL, conjunctivae normal, anicteric sclerae ENMT: external ear and nose normal, oropharynx normal Neck: trachea midline, no thyromegaly Respiratory: no respiratory distress Auscultation: lungs clear to auscultation bilaterally Cardiovascular: Rate/Rhythm: regular rate and regular rhythm; not tachycardic Extremities: no edema Gastrointestinal (Abdomen): Inspection/Auscultation: normal bowel sounds; abdomen not distended Percussion/Palpation: abdomen soft; abdomen nontender Neurologic: normal touch/pain/proprioception and moves all extremities Lymphatic: no cervical or axillary lymphadenopathy Results & Data Results & Data Vital Signs (Past 12 Hours) Vital Signs Temp Pulse Resp BP Pulse Ox O2 Del Method 10/10/22 15:22 36.5 C 91 H 16 118/64 96 Room Air 10/10/22 08:21 36.7 C 78 16 116/83 97 Room Air
[2022-10-10] MEDS: haloperidoL 5 MG TAB PO SCH (20:09)
[2022-10-10] MEDS: TAMSULOSIN HCL 0.4 MG CAP PO SCH (20:14)
[2022-10-10] MEDS: MELATONIN 3 MG TAB PO SCH (20:14)
[2022-10-11] MEDS: OXcarbazepine 150 MG TABLET PO SCH ×2 (09:42→20:09)
[2022-10-11] MEDS: DIVALPROEX EXTENDED RELEASE 500 MG TAB PO SCH ×2 (09:44→20:10)
[2022-10-11] MEDS: PROPRANOLOL HCL 20 MG TAB PO SCH ×2 (09:45→16:44)
[2022-10-11] MEDS: clonazePAM 1 MG TAB PO SCH ×3 (09:45→20:11)
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
[2022-10-11] MEDS ORDERED: clonazePAM 1 MG TAB PO PRN (11:07)
--- NOTE | 2022-10-11 17:25 | Hospitalist Progress Note ---
Date of Service October 11, 2022 Assessment & Plan (1) Schizoaffective disorder: Plan: Schizoaffective disorder/personality disorder/mood disorder, suboptimal following recent confinement of [facility] Appreciate psychiatry input and recommendation-on Depakote and oxcarbazepine for mood stabilization. Also on Klonopin, Haldol Per psychiatry, 303 hearing was held on 09/18 for involuntary admission which was granted. Patient is still requiring one-to-one sitter Medically stable for discharge Psychiatry adjusting medications, awaiting inpatient psychiatric placement. No new symptoms and the patient remains medically stable to be discharged Dyspepsia Tums 500 mg 3 times daily as needed Denies any more epigastric discomfort Denies any more dyspeptic symptoms (2) Seizure: Plan: Seizure after Zyprexa in the ED- had 3 seizures which were attributed to high- dose Zyprexa administration S/p intubation for airway protection but he self extubated 09/14/22 and has been stable since Currently on Depakote(ER 500mg in AM and 1000mg in PM) and oxcarbazepine (750mg BID), also for his psychiatric issues also on Klonopin 1 mg twice daily EEG: Potentially abnormal awake/drowsy EEG with evidence of left parietal slowing and sharps. No evidence of persistent seizure activity. Generalized tremors are likely not due to seizure Lyme serology negative No more seizures Neurology recommendations noted was agitated/violent 10/10 -- meds uptitrated per psychiatry. Imaging studies: MRI brain: 1. No acute infarct or intracranial hemorrhage. 2. The temporal lobes are symmetric. 3. A few punctate foci of T2 hyperintensity seen within the periventricular and subcortical white matter of the supratentorial brain. These are nonspecific but greater than expected for age. Therefore, this could represent early microvascular ischemic change, migraines, Lyme's disease, or less likely a demyelinating disease or vasculitis. Generalized tremors-started on propranolol per psychiatry Persisting generalized tremors-seems to be much better now without any severe anxiety Propranolol has been increased to 20 mg twice daily Plan DVT proph: scds. pt doesn't like lovenox/injection. maintain activity level/ambulation. Dispo-medically stable for inpatient psychiatric facility- ongoing bed search. Patient remains hospitalized on completed 303 involuntary commitment and cannot leave the hospital AMA. Awaiting placement Admission and Anticipated Discharge Date Admission Date: September 14, 2022 Subjective The patient was seen and examined in medical floor He had breakthrough agitation yesterday evening. today, He has been really stable with less tremors. appears coherent. holds conversation easily. Denies any symptoms and has been waiting to go to inpatient psychiatric rehab Physical Exam Physical Exam: Lying in bed comfortably with ongoing tremors involving the extremities Constitutional: average body habitus; not ill appearing Eyes: PERRL, conjunctivae normal, anicteric sclerae ENMT: external ear and nose normal, oropharynx normal Neck: trachea midline, no thyromegaly Respiratory: no respiratory distress Auscultation: lungs clear to auscultation bilaterally Cardiovascular: Rate/Rhythm: regular rate and regular rhythm; not tachycardic Extremities: no edema Gastrointestinal (Abdomen): Inspection/Auscultation: normal bowel sounds; abdomen not distended Percussion/Palpation: abdomen soft; abdomen nontender Neurologic: normal touch/pain/proprioception and moves all extremities Lymphatic: no cervical or axillary lymphadenopathy Results & Data Results & Data Vital Signs (Past 12 Hours) Vital Signs Temp Pulse Resp BP Pulse Ox O2 Del Method 10/11/22 15:03 36.6 C 71 16 117/72 94 Room Air 10/11/22 09:47 36.7 C 79 16 126/70 96 Room Air
[2022-10-11] MEDS: TAMSULOSIN HCL 0.4 MG CAP PO SCH (20:10)
[2022-10-11] MEDS: MELATONIN 3 MG TAB PO SCH (20:10)
[2022-10-11] MEDS: haloperidoL 5 MG TAB PO SCH (20:11)
[2022-10-11] MEDS: clonazePAM 0.5 MG TAB PO PRN (23:45)
[2022-10-11] MEDS: haloperidoL 5 MG TAB PO PRN (23:45)
[2022-10-12] MEDS ORDERED: MELATONIN 3 MG TAB PO STA (00:09)
[2022-10-12] MEDS: OXcarbazepine 150 MG TABLET PO SCH ×2 (08:40→20:01)
[2022-10-12] MEDS: clonazePAM 1 MG TAB PO SCH ×3 (08:40→20:04)
[2022-10-12] MEDS: DIVALPROEX EXTENDED RELEASE 500 MG TAB PO SCH ×2 (08:40→20:02)
[2022-10-12] MEDS: haloperidoL 5 MG TAB PO PRN (09:21)
[2022-10-12] MEDS ORDERED: Nursing to Pharmacy Communication SCH (09:30)
[2022-10-12] MEDS: clonazePAM 0.5 MG TAB PO PRN (09:39)
[2022-10-12] MEDS: ACETAMINOPHEN 500 MG TAB PO PRN (12:01)
--- NOTE | 2022-10-12 12:04 | Psychiatric Progress Note ---
Date of Service October 12, 2022 Impression / Recommendations Impression Reviewed care by Dr. Braun in italics. 47 y/o man with schizoaffective disorder, bipolar type who's been off his medication and who recently had seizures in the ED in the context of having been off his high-dose anticonvulsants and benzodiazepine and having been administered olanzapine. The patient remains hospitalized on a completed 304 involuntary commitment. This patient must remain on safety precautions with a 1-on-1 and is unable to leave the hospital AMA. 10/12/22: calmer, ongoing hyperfocus on commitment status (1) Schizoaffective disorder, bipolar type: Plan Dr. Hudson updated. continue current meds and tx plan. Lambert reviewing. Risk Factors Assessment Male: Yes : Yes Do You Have Access To A Gun?: No Health Problems: Yes Mental Health Diagnoses: Yes Previous Psychiatric Hospitalization: Yes Protective Factors Assessment Responsible for Young Children: No Employed: No Stable Relationships: No Interval History Identifying Information ROGER SCHMIDT is a 47-year-old male with a history of schizoaffective disorder, admitted on 09/14/2022 for seizures. Consult is by the hospitalist service for psychosis. 304 commitment as of 10/05/22. Chief Complaint "I want the hearing paperwork." Review of Systems Notes tremor, otherwise bored Subjective Subjective Patient was seen & assessed and interval progress reviewed with nursing. Patient remains focussed on 304 hearing transcript which is not yet available. Requesting to see a neurologist for his tremor. He does not attribute to Haldol which has been shifted to hs. Reviewed that his Depakote level is not yet do so will not titrate further. He is unwilling to replace part of dose of Haldol with any other antipsychotic given intolerances. He is unwilling to try gabapentin or restart propranolol (which was not a full trial). Physical Exam Psychiatric Orientation: alert Eye Contact: good eye contact Speech: normal rate/rhythm/volume of speech Affect: + depressed affect Mood: + depressed mood Thought Process: + concrete thought process Thought Content: no delusions Suicidal Thoughts: denies suicidal thoughts Homicidal Thoughts: denies homicidal thoughts Hallucinations: no auditory hallucinations and no visual hallucinations Cognition: attention grossly intact Vital Signs (Past 24 Hours) Last Vital Signs Temp 36.4 C L 10/12/22 08:30 Pulse 64 10/12/22 08:30 Resp 16 10/12/22 08:30 BP 124/82 10/12/22 08:30 Pulse Ox 98 10/12/22 08:30 O2 Del Method Room Air 10/12/22 08:30 O2 Flow Rate 2 09/15/22 21:48 FiO2 30 09/14/22 22:35 Results & Data ([facility]) Current Inpatient Medications Current Inpatient Medications: Current Inpatient Medications Acetaminophen (Acetaminophen 500 Mg Tab) 500 mg PO Q6H PRN PRN Reason: pain/fever Stop: 10/15/22 19:55 Last Admin: 09/28/22 01:19 Dose: 500 mg Calcium Carbonate (Calcium Carbonate 500 Mg Chewable Tab) 500 mg PO Q6H PRN PRN Reason: Indigestion Stop: 11/01/22 12:36 Clonazepam (Clonazepam 1 Mg Tab) 1 mg PO TID [facility] Stop: 11/10/22 13:59 Last Admin: 10/12/22 08:40 Dose: 1 mg Clonazepam (Clonazepam 0.5 Mg Tab) 0.5 mg PO BID PRN PRN Reason: agitation/anxiety Stop: 11/10/22 22:37 Last Admin: 10/12/22 09:39 Dose: 0.5 mg Divalproex Sodium (Divalproex Extended Release 500 Mg Tab) 1,000 mg PO BID [facility] Stop: 11/09/22 20:59 Last Admin: 10/12/22 08:40 Dose: 1,000 mg Haloperidol (Haloperidol 5 Mg Tab) 5 mg PO BID PRN PRN Reason: Agitation/psychosis Stop: 10/24/22 10:19 Last Admin: 10/12/22 09:21 Dose: 5 mg Haloperidol (Haloperidol 5 Mg Tab) 15 mg PO HS [facility] Stop: 11/09/22 20:59 Last Admin: 10/11/22 20:11 Dose: 15 mg Haloperidol Lactate (Haloperidol Lactate 5 Mg/Ml 1 Ml Vial) 5 mg IM BID PRN PRN Reason: Agitation Stop: 11/03/22 15:00 Last Admin: 10/10/22 15:11 Dose: 5 mg Ibuprofen (Ibuprofen 200 Mg Tab) 400 mg PO TID PRN PRN Reason: pain, headache Stop: 10/16/22 11:47 Last Admin: 10/03/22 13:04 Dose: 400 mg Lorazepam (Lorazepam 2 Mg/1 Ml Vial) 2 mg IM BID PRN PRN Reason: Agitation Stop: 11/03/22 15:00 Last Admin: 10/10/22 15:11 Dose: 2 mg Melatonin (Melatonin 3 Mg Tab) 6 mg PO HS [facility] Stop: 11/12/22 20:59 Ondansetron HCl (Ondansetron Inj 2 Mg/Ml 2 Ml Vial) 4 mg IV Q6H PRN PRN Reason: Nausea And Vomiting Stop: 10/16/22 12:04 Last Admin: 09/21/22 09:00 Dose: 4 mg Oxcarbazepine (Oxcarbazepine 150 Mg Tablet) 750 mg PO BID [facility] Stop: 10/14/22 23:44 Last Admin: 10/12/22 08:40 Dose: 750 mg Tamsulosin HCl (Tamsulosin Hcl 0.4 Mg Cap) 0.4 mg PO [facility] Stop: 10/20/22 11:18 Last Admin: 10/11/22 20:10 Dose: 0.4 mg Mental Health & Subst Abuse Tx Therapist Name of Therapist: Mat Ch @ [facility] (?) Field Support Representative Name of Field Support Representative: Joann santiago [place] [facility] Post Discharge Appointments Primary Care Physician Name Of Family Doctor/PCP: Lico De Jesus
[2022-10-12] MEDS: IBUPROFEN 200 MG TAB PO PRN (14:58)
--- NOTE | 2022-10-12 15:56 | Hospitalist Progress Note ---
Date of Service October 12, 2022 Assessment & Plan (1) Schizoaffective disorder: Plan: Schizoaffective disorder/personality disorder/mood disorder, suboptimal following recent confinement of [facility] Appreciate psychiatry input and recommendation-on Depakote and oxcarbazepine for mood stabilization. Also on Klonopin, Haldol Per psychiatry, 303 hearing was held on 09/18 for involuntary admission which was granted. Patient is still requiring one-to-one sitter Medically stable for discharge Psychiatry adjusting medications, awaiting inpatient psychiatric placement. No new symptoms and the patient remains medically stable to be discharged Dyspepsia Tums 500 mg 3 times daily as needed Denies any more epigastric discomfort Denies any more dyspeptic symptoms (2) Seizure: Plan: Seizure after Zyprexa in the ED- had 3 seizures which were attributed to high- dose Zyprexa administration S/p intubation for airway protection but he self extubated 09/14/22 and has been stable since Currently on Depakote(ER 500mg in AM and 1000mg in PM) and oxcarbazepine (750mg BID), also for his psychiatric issues also on Klonopin 1 mg twice daily EEG: Potentially abnormal awake/drowsy EEG with evidence of left parietal slowing and sharps. No evidence of persistent seizure activity. Generalized tremors are likely not due to seizure Lyme serology negative No more seizures Neurology recommendations noted was agitated/violent 10/10 -- meds uptitrated per psychiatry. Imaging studies: MRI brain: 1. No acute infarct or intracranial hemorrhage. 2. The temporal lobes are symmetric. 3. A few punctate foci of T2 hyperintensity seen within the periventricular and subcortical white matter of the supratentorial brain. These are nonspecific but greater than expected for age. Therefore, this could represent early microvascular ischemic change, migraines, Lyme's disease, or less likely a demyelinating disease or vasculitis. Generalized tremors-started on propranolol per psychiatry, pt declining propranolol or neurontin. Persisting generalized tremors-seems to have not aggravated lately. Plan DVT proph: scds. pt doesn't like lovenox/injection. maintain activity level/ambulation. Dispo-medically stable for inpatient psychiatric facility- ongoing bed search. Patient remains hospitalized on completed 303 involuntary commitment and cannot leave the hospital AMA. Awaiting placement Admission and Anticipated Discharge Date Admission Date: September 14, 2022 Subjective The patient was seen and examined in medical floor He had breakthrough agitation 10/10 evening. today, He has been really stable, has tremors. appears coherent. holds conversation easily. Denies any symptoms and has been waiting to go to inpatient psychiatric rehab Physical Exam Physical Exam: Lying in bed comfortably with ongoing tremors involving the extremities Constitutional: average body habitus; not ill appearing Eyes: PERRL, conjunctivae normal, anicteric sclerae ENMT: external ear and nose normal, oropharynx normal Neck: trachea midline, no thyromegaly Respiratory: no respiratory distress Auscultation: lungs clear to auscultation bilaterally Cardiovascular: Rate/Rhythm: regular rate and regular rhythm; not tachycardic Extremities: no edema Gastrointestinal (Abdomen): Inspection/Auscultation: normal bowel sounds; abdomen not distended Percussion/Palpation: abdomen soft; abdomen nontender Neurologic: normal touch/pain/proprioception and moves all extremities Lymphatic: no cervical or axillary lymphadenopathy Results & Data Results & Data Vital Signs (Past 12 Hours) Vital Signs Temp Pulse Resp BP Pulse Ox O2 Del Method 10/12/22 14:00 36.6 C 72 14 96/64 L 95 Room Air 10/12/22 08:30 36.4 C L 64 16 124/82 98 Room Air
[2022-10-12] MEDS ORDERED: clonazePAM 1 MG TAB PO ONE (19:30)
[2022-10-12] MEDS: TAMSULOSIN HCL 0.4 MG CAP PO SCH (20:00)
[2022-10-12] MEDS: haloperidoL 5 MG TAB PO SCH (20:03)
--- NOTE | 2022-10-13 07:44 | Discharge Summary ---
Date of Service October 12, 2022 Admission HPI Per Admitting Provider Chief Complaint: Patient incoherent as per records Primary Care Provider: Dr Poncho Mckeon MD History obtained from ER provider and records. Unable to obtain history from patient secondary to intubated state. Medical history significant for hypertension, hyperlipidemia, schizoaffective disorder, personality disorder, mood disorder, chronic migraine, essential tremor as per records, polysubstance abuse, prediabetes, past tobacco abuse. Last confinement February 2020 at the behavioral [facility] for anxiety/paranoia. Patient admitted at the [facility] for the last 4 months. Patient discharge from facility 2 days ago. Patient walked into the office of [facility] and was noted to be incoherent. Patient brought to the ER by police yesterday. Patient noted to be agitated a few hours ago while waiting for transport for return to [facility]. Patient given 10 mg of IM olanzapine. Patient noted to have 3 episodes of generalized tonic-clonic seizures. IV Ativan and Keppra administered at the ER. Patient later noted to have rapid atrial flutter. IV Cardizem bolus administered. Subsequent NSR conversion. Patient subsequently intubated for airway protection. Admission Exam Per Admitting Provider GENERAL: Sedated, intubated, no respiratory distress SKIN: Normal color, warm HEENT: [place] palpebral conjunctivae, no ptosis, dry buccal mucosa, ET in place NECK : Supple, no tenderness CHEST : Decreased breath sounds, no tenderness HEART : RRR, no obvious murmurs ABDOMEN: no distention, nontender EXTREMITIES : No LE swelling/tenderness, no other conspicuous deformities noted NEUROLOGIC : Sedated, no facial asymmetry, gait and stance not assessed Principal Diagnosis Schizoaffective disorder, bipolar type Discharge Exam Lying in bed comfortably with ongoing tremors involving the extremities Constitutional average body habitus; not ill appearing Eyes PERRL, conjunctivae normal, anicteric sclerae ENMT external ear and nose normal, oropharynx normal Neck trachea midline, no thyromegaly Respiratory no respiratory distress Auscultation: lungs clear to auscultation bilaterally Cardiovascular Rate/Rhythm: regular rate and regular rhythm; not tachycardic Extremities: no edema Gastrointestinal (Abdomen) Inspection/Auscultation: normal bowel sounds; abdomen not distended Percussion/Palpation: abdomen soft; abdomen nontender Neurologic normal touch/pain/proprioception and moves all extremities Lymphatic no cervical or axillary lymphadenopathy Discharge Data Allergies Allergy/AdvReac Type Severity Reaction Status Date / Time olanzapine AdvReac Severe seizure Verified 09/14/22 09:25 aripiprazole [From Abilify] AdvReac Mild Insomnia Verified 07/07/20 10:27 albuterol AdvReac Depression Verified 07/07/20 10:27 atorvastatin AdvReac Unknown Verified 07/07/20 10:27 chlorpromazine AdvReac Unknown Verified 07/07/20 10:27 [From Thorazine] diphenhydramine AdvReac Unknown Verified 07/07/20 10:27 guanfacine AdvReac Unknown Verified 07/07/20 10:27 lithium AdvReac Unknown Verified 07/07/20 10:27 quetiapine [From Seroquel] AdvReac Unknown Verified 07/07/20 10:27 risperidone AdvReac Unknown Verified 07/07/20 10:27 Consultations 09/14/22 06:01 ED Decision to Admit Stat 09/14/22 06:29 Consult Neurology Routine Consult Psychiatry Routine 09/14/22 08:45 Consult Pipe Stress Engineer Routine Ordered Studies 09/14/22 05:13 CT head/brain wo con Stat 09/14/22 06:29 MRI Brain [MR brain seizure wo/w con] Routine Hospital Course (1) Schizoaffective disorder: Schizoaffective disorder/personality disorder/mood disorder, suboptimal following recent confinement of [facility] Appreciate psychiatry input and recommendation-on Depakote and oxcarbazepine for mood stabilization. Also on Klonopin, Haldol Per psychiatry, 303 hearing was held on 09/18 for involuntary admission which was granted. Patient is still requiring one-to-one sitter Medically stable for discharge Psychiatry adjusting medications, awaiting inpatient psychiatric placement. No new symptoms and the patient remains medically stable to be discharged Dyspepsia Tums 500 mg 3 times daily as needed Denies any more epigastric discomfort Denies any more dyspeptic symptoms (2) Seizure: Seizure after Zyprexa in the ED- had 3 seizures which were attributed to high-dose Zyprexa administration S/p intubation for airway protection but he self extubated 09/14/22 and has been stable since Currently on Depakote(ER 500mg in AM and 1000mg in PM) and oxcarbazepine (750mg BID), also for his psychiatric issues also on Klonopin 1 mg twice daily EEG: Potentially abnormal awake/drowsy EEG with evidence of left parietal slowing and sharps. No evidence of persistent seizure activity. Generalized tremors are likely not due to seizure Lyme serology negative No more seizures Neurology recommendations noted was agitated/violent 10/10 -- meds uptitrated per psychiatry. Imaging studies: MRI brain: 1. No acute infarct or intracranial hemorrhage. 2. The temporal lobes are symmetric. 3. A few punctate foci of T2 hyperintensity seen within the periventricular and subcortical white matter of the supratentorial brain. These are nonspecific but greater than expected for age. Therefore, this could represent early microvascular ischemic change, migraines, Lyme's disease, or less likely a demyelinating disease or vasculitis. Generalized tremors-started on propranolol per psychiatry, pt declining propranolol or neurontin. Persisting generalized tremors-seems to have not aggravated lately. Plan DVT proph: scds. pt doesn't like lovenox/injection. maintain activity level/ambulation. Dispo-medically stable for inpatient psychiatric facility- ongoing bed search. Patient remains hospitalized on completed 303 involuntary commitment and cannot leave the hospital AMA. Pt being discharged to [facility] with following instruction at the point of discharge: Follow-up with your primary care physician within a week time and likely you will need labs CBC/CMP/magnesium/phosphorus. Follow-up with the psychiatry as an outpatient in 1 to 3 weeks time as a part of ongoing management of your psychiatric issues. You can follow-up with neurology for your tremors as an outpatient. Coordinate with your PCP office for setting up referral. Take medications as prescribed. Home Health Attestation I certify that this patient is under my care and that I, or a physicians personalized living assistant working with me, had a face to-face encounter that meets the home health [id number] encounter requirements with this patient. The encounter with the patient was in whole, or in part, for the following medical condition, which is the primary reason for home health care (list medical condition): I certify that, based on my findings, the following services are medically necessary home health services: My clinical findings support the need for the above services because: Further, I certify that my clinical findings support that this patient is homebound (i.e. absences from home require considerable and taxing effort and are for medical reasons or scientology services or infrequently or of short duration when for other reasons) because: Certification for Home Health Services: Based on the above findings, I certify that this patient is confined to the home and needs intermittent fci care, physical therapy and/or speech therapy or continues to need occupational therapy. The patient is under my care, and I have initiated the establishment of the plan of care. This patient will be followed by a physician who will periodically review the plan of care. Total Time Total Time Spent Total Time Spent (In Minutes): 45 Discharge Plan Discharge Items Patient Disposition: Transfer Behavioral Health Fac Reason For Visit: SEIZURES SP INTUBATION Discharge Diagnosis: Schizoaffective disorder, bipolar type Activity: Resume your previous activity Non-emergency contact: Primary Care Provider Call non-emergency contact if: you have any medication questions and your pain is not controlled Follow-up/Referrals: Flory Mckeon MD [Outside Practitioners] - Diet: Other - See Diet Comment Diet Comment: Rafael Rascon Attending Provider Instructions: Follow-up with your primary care physician within a week time and likely you will need labs CBC/CMP/magnesium/phosphorus. Follow-up with the psychiatry as an outpatient in 1 to 3 weeks time as a part of ongoing management of your psychiatric issues. You can follow-up with neurology for your tremors as an outpatient. Coordinate with your PCP office for setting up referral. Take medications as prescribed. Pending Studies at Discharge: No Stand-Alone Forms: [facility] Medications and DC Order Prescriptions: New tamsulosin 0.4 mg Capsule 0.4 mg PO HS Qty: 30 0RF acetaminophen [Tylenol Extra Strength] 500 mg Tablet 500 mg PO Q6H PRN (Reason: fever or pain) Qty: 60 0RF clonazepam 1 mg Tablet 1 mg PO TID Qty: 30 0RF clonazepam 0.5 mg Tablet 0.5 mg PO BID PRN (Reason: anxiety and agitation) Qty: 20 0RF divalproex 500 mg Tablet Extended Release 24 Hr 1,000 mg PO BID Qty: 120 0RF haloperidol 5 mg Tablet 5 mg PO BID PRN (Reason: agitation) Qty: 30 0RF haloperidol 5 mg Tablet 15 mg PO HS Qty: 90 0RF ibuprofen 200 mg Tablet 400 mg PO TID PRN (Reason: pain, headache) Qty: 30 0RF oxcarbazepine 150 mg Tablet 750 mg PO BID Qty: 300 0RF melatonin 3 mg Tablet 6 mg PO HS Qty: 60 0RF Continued cholecalciferol (vitamin D3) 125 mcg (5,000 unit) Tablet 125 mcg PO DAILY Discontinued oxcarbazepine 600 mg tablet 600 mg PO BID oxcarbazepine 150 mg tablet 150 mg PO BID divalproex 500 mg tablet extended release 24 hr 500 mg PO TID Rx Instructions: morning, noon and bedtime clonazepam [Klonopin] 1 mg Tablet 1 mg PO HS doxepin 75 mg capsule 75 mg PO HS diphenhydramine HCl 25 mg capsule 50 mg PO HS Discharge Orders: Discharge Order (Routine); Ordered 10/12/22 Ordered By: Rona Hudson Admission Data Admit Date/Time: 09/14/22 06:28 Attending Provider: Rona Hudson Admit Provider: Jose Martinez Primary Care Provider: Poncho Mckeon Other Providers: Thierno Trevino ; Jose Martinez ; Janeth Braun ; Melissa Mccarthy ; Mohan Reyes ; Roge Ambrosio Other Interventions: Discharge Summary Assessment (RN) Last Done: 10/12/22 16:54
[2022-10-13] MEDS ORDERED: MELATONIN 3 MG TAB PO SCH (21:00)
== END 2022-10-12 20:17 | DRG 101 ==
LOC: ED 15:58 → 1E 09-14 06:28 → SUPCPDRO 09-14 06:28 → SUATTDRO 09-14 06:28 → 1E 09-14 08:07 → 3N 09-16 13:57 → 3W 09-17 06:19 → 4W 09-25 01:25 → 3N 09-29 23:11